=== PATIENT | female | born 1960 | race Caucasian/White ===

== ENCOUNTER 2019-01-17 07:54 | Inpatient (IN) | payer OTHER, MEDICARE ==
[2019-01-16 14:11] VITALS: BMI 26.6
[2019-01-17] MEDS ORDERED: MIDAZOLAM HCL 2 MG/2 ML SINGLE DOSE VIAL ONE (10:03)
[2019-01-17] MEDS ORDERED: PROPOFOL 20 ML ONE ×8 (10:04→12:45)
[2019-01-17] MEDS ORDERED: ROCURONIUM BROMIDE 50 MG/5 ML VIAL ONE ×2 (10:05→11:18)
[2019-01-17] MEDS ORDERED: ceFAZolin SODIUM 1 GM VIAL IVPB ONE (10:20)
[2019-01-17] MEDS ORDERED: VANCOMYCIN 1,000 MG VIAL (RESTRICTED TO ID ONLY) IVPB ONE (10:30)
[2019-01-17] MEDS ORDERED: SODIUM CHLORIDE 0.9% P/F 10 ML VIAL IJ ONE (10:48)
[2019-01-17] MEDS ORDERED: VANCOMYCIN 1,000 MG VIAL (RESTRICTED TO ID ONLY) ONE (10:48)
[2019-01-17] MEDS ORDERED: TRANEXAMIC ACID 1000 MG/10 ML VIAL ONE (10:48)
[2019-01-17] MEDS ORDERED: DEXAMETHASONE SOD PHOSPHATE 4 MG/1 ML VIAL ONE (10:51)
[2019-01-17] MEDS ORDERED: ONDANSETRON 4 MG/2 ML VIAL ONE (10:51)
[2019-01-17] MEDS ORDERED: PROMETHAZINE HCL 25 MG/1 ML VIAL IVPB PRN ×2 (12:30)
[2019-01-17] MEDS ORDERED: DEXAMETHASONE SOD PHOSPHATE 4 MG/1 ML VIAL IVPUSH PRN (12:30)
[2019-01-17] MEDS ORDERED: ONDANSETRON 4 MG/2 ML VIAL IVPUSH PRN ×2 (12:30→13:46)
--- NOTE | 2019-01-17 13:42 | PN ---
Progress Note (short form) - Note Progress Note: 58F s/p removal of hardware, inspection of fusion mass, and I&D thoracolumbar spine POD #0. -Pain control: per anaesthesia team; recommend CORRECTIONS SPECIALIST; NSAID's OK. -DVT PPx: - Mechanical only: MIGUEL ANGEL's, SCD's. -Incentive spirometry q15min. -PT/OT/Rehab, OOB. -WBAT B/L LE. -q4h B/L LE NV checks. -Post-op antibiotics x 2 doses. -NPO until flatus. -f/u AM labs. -f/u drain output. -d/c Morse catheter when patient ambulating comfortably. -Care per ICU & medical hospitalist team. -Will follow. Shayan Marina MD (Orthopaedic Surgery).
[2019-01-17] MEDS ORDERED: PATIENT'S OWN MEDICATION (NON-FORMULARY) (Oxycodone Hcl [Oxycodone Hcl] 30 MG) PO SCH (13:45)
[2019-01-17] MEDS ORDERED: HYDROMORPHONE HCL 8 MG PO SCH (13:45)
[2019-01-17] MEDS ORDERED: PATIENT'S OWN MEDICATION (NON-FORMULARY) (Lorazepam [Lorazepam] 2 MG) PO SCH (13:45)
--- NOTE | 2019-01-17 13:45 | OP ---
Operative Note - Note: Operative Date: 01/17/19 Pre-Operative Diagnosis: Symptomatic thoracolumbar spinal hardware. Progressive lower extremity neurological decline Operation: Thoracolumbar spine: 1. Removal of hardware. 2. Inspection of fusion mass. 3. I&D Post-Operative Diagnosis: Same as Pre-op Surgeon: Shayan Marina Software Administrator: Humble Marina Anesthesiologist/ARMATURE WINDER REPAIR HELPER: Gee Olivares Anesthesia: General Specimens Removed: Hardware Estimated Blood Loss (mls): 100 Drains & Tubes with Location: 1 x deep HemoVac Fluid Volume Replaced (mls): 1,800 (Crystalloid) Operative Report Dictated: Yes
[2019-01-17] MEDS ORDERED: LACTATED RINGERS SOLUTION 1,000 ML IV SCH (14:00)
--- NOTE | 2019-01-17 14:02 | CONSULT ---
Consultation: REQUESTING PROVIDER: CONSULT REQUEST: We have been asked to medically evaluate this patient for admission to ICU. HISTORY OF PRESENT ILLNESS: 58 y/o F with PMHx of MS and multiple back surgeries will be monitored in ICU s/ p removal of hardware, inspection of fusion mass, and I&D thoracolumbar spine POD #0. As per surgery, patient has had progressive weakness since August of this past week. During my interview, patient complains of pain over surgical site. Denies fevers, chills, chest pain, SOB, Nausea, vomiting, diarrhea, constipation REVIEW OF SYSTEMS: As per HPI PHYSICAL EXAMINATION Vital Signs - 24 hr 01/17/19 01/17/19 08:49 09:03 Temperature 97.8 F Pulse Rate 90 Respiratory 20 Rate Blood Pressure 123/86 O2 Sat by Pulse 98 Oximetry (%) GENERAL: A&Ox3, Having discomfort from pain oversurgical site head: NCAT EYES: PERRL, EOMI ENT: Moist mucous membranes NECK: Supple, R IJ placed with dressing C/D/I LUNGS: Diminished breath sounds at the bases, No wheezes, No crackles HEART: Regular rate and rhythm, normal S1 and S2 without murmur ABDOMEN: Soft, nontender, not distended, hypoactive bowel sounds, no guarding BACK: Surgical dressing C/D/I without surrounding tenderness, drain present EXTREMITIES: No peripheral edema NEUROLOGICAL: Cranial nerves II-XII intact. Normal speech. SKIN: Warm, dry Laboratory Results - last 24 hr 01/17/19 01/17/19 08:09 08:55 Blood Type A POSITIVE A POSITIVE Antibody Screen Negative Active Medications Amitriptyline HCl (Elavil -) 50 mg PO HS ARNIE Dexamethasone Sodium Phosphate (Decadron Injection -) 4 mg IVPUSH ONCE PRN PRN Reason: NAUSEA AND/OR VOMITING Diphenhydramine HCl (Benadryl Injection -) 12.5 mg IVPUSH ONCE PRN PRN Reason: FOR ITCHING Fentanyl (Sublimaze Injection -) 50 mcg IVPUSH [id number] PRN PRN Reason: PAIN-PACU ORDER X 4 DOSES ONLY Hydromorphone HCl (Dilaudid Applications Programmer -) 0 mg DESIGN ENGINEERING MANAGER DESIGN ENGINEERING MANAGER ARNIE; Protocol Stop: 01/24/19 12:30 Lactated Ringer's (Lactated Ringers Solution) 1,000 mls @ 125 mls/hr IV ASDIR ARNIE Non-Formulary Medication (Hydromorphone Hcl [Dilaudid]) 8 mg PO Q4H ARNIE Non-Formulary Medication (Lorazepam [Lorazepam]) 2 mg PO Q4H ARNIE Non-Formulary Medication (Oxycodone Hcl [Oxycodone Hcl]) 30 mg PO Q6H ARNIE Ondansetron HCl (Zofran Injection) 4 mg IVPUSH Q4H PRN PRN Reason: NAUSEA AND/OR VOMITING Promethazine HCl (Phenergan Injection -) 12.5 mg IVPB Q6H PRN PRN Reason: NAUSEA AND/OR VOMITING Promethazine HCl (Phenergan Injection -) 12.5 mg IVPUSH Q6H PRN PRN Reason: NAUSEA-FOR RESCUE AFTER 15 MIN ASSESSMENT/PLAN: 58 y/o F with PMHx of MS will be monitored in ICU s/p removal of hardware, inspection of fusion mass, and I&D thoracolumbar spine POD #0. #Neuro S/P Thoracolumbar spine Removal of hardware, Inspection of fusion mass, I&D Hx of MS (Not on medications) -EBL 100 mls; 1800 fluid volume replaced -Vitals Q4H -Pain control per anaesthesia team; recommend DESIGN ENGINEERING MANAGER; NSAID's OK -PT/OT/Rehab, OOB -WBAT B/L LE -Neuro checks Q4H -Turn and position [id number] -NPO until passes flatus -Morse catheter to be d/c'ed once ambulating -Post-op Cefazolin 2gm x 2 doses -Continue LR @ 125 mls/hr -Continue home dose Oxicodone, Dilaudid as per surgical rec's #Cardio -No active issues, continue to monitor #Pulm -Incentive spirometry -Supplemetal O2 to maintain SpO2 > 90% #GI -Continue Promethazine, Ondansetron PRN for vomiting #Renal -Continue LR @ 125 mls/hr -Monitor I&Os, urine output #ID -Afebrile, without Leukocytosis -Post-op Cefazolin 2gm x 2 doses -Continue to monitor for post-op fever #Heme -Continue to monitor for Acute blood loss anemia #FEN -Continue LR @ 125 mls/hr -Replete Lytes PRN -NPO #PPx -DVT: MIGUEL ANGEL's, SCD's -GI: Pantoprazole #LTD -R IJ placed in OR on 01/17 -HemoVac placed 01/17 -Morse Catheter placed 01/17 Dispo: We will continue to follow the patient. Thank you for this consultative opportunity. Visit type - Emergency Visit Emergency Visit: Yes ED Registration Date: 01/17/19 Care time: The patient presented to the Emergency Department on the above date and was hospitalized for further evaluation of their emergent condition. - New Patient This patient is new to me today: Yes Date on this admission: 01/17/19 - Critical Care Critical Care patient: Yes Total Critical Care Time (in minutes): 36 Critical Care Statement: The care of this patient involved high complexity decision making to prevent further life threatening deterioration of the patient 's condition and/or to evaluate & treat vital organ system(s) failure or risk of failure.
[2019-01-17] MEDS: KETOROLAC TROMETHAMINE 30 MG/1 ML VIAL IVPUSH PRN (14:05)
[2019-01-17] MEDS: LACTATED RINGERS SOLUTION 1,000 ML IV SCH (14:08)
--- NOTE | 2019-01-17 14:08 | PN ---
Physical Exam: SUBJECTIVE: Patient seen and examined in the ICU. having back pain, 10/10. awake and alert, verbalizing discomfort. tells me that she has a high tolerance for pain and has had back surgery in the past. OBJECTIVE: paper chart reviewed s/p lumbar spine surgery with Dr. nuñez POD #0 Thoracolumbar spine: 1. Removal of hardware. 2. Inspection of fusion mass. 3. I&D ---- as per paper chart, patient home medications include: elavil 50mg at hs dilaudid 8mg q4 lorazepam 2mg q4 oxycodone 30mg q6 she has a past medical history of blood transfusions with surgery appendectomy cesearan section tonsillectomy former smoker multiple sclerosis Vital Signs Period Temp Pulse Resp BP Sys/Gallagher Pulse Ox Last 24 Hr 97.8 F 90 20 123/86 98 GENERAL: The patient is awake, alert, and fully oriented, having back pain HEAD: Normal with no signs of trauma. EYES: PERRL, extraocular movements intact, sclera anicteric, conjunctiva clear. No ptosis. ENT: Ears normal, nares patent, oropharynx clear without exudates, moist mucous membranes. NECK: Trachea midline, full range of motion, supple. LUNGS: Breath sounds equal, clear to auscultation bilaterally, no wheezes, HEART: Regular rate and rhythm. ABDOMEN: Soft, nontender, nondistended, normoactive bowel sounds, NEUROLOGICAL: Normal speech, gait not observed. PSYCH: Normal mood, normal affect. SKIN: surgical dressing c/d/i Laboratory Results - last 24 hr 01/17/19 01/17/19 08:09 08:55 Blood Type A POSITIVE A POSITIVE Antibody Screen Negative Active Medications Generic Name Dose Route Start Last Admin Trade Name Freq PRN Reason Stop Dose Admin Acetaminophen 1,000 mg 01/17/19 14:00 Ofirmev Injection - IVPB 01/18/19 06:01 Q8H ARNIE Amitriptyline HCl 50 mg 01/17/19 22:00 Elavil - PO HS ARNIE Dexamethasone Sodium Phosphate 4 mg 01/17/19 12:30 Decadron Injection - IVPUSH ONCE PRN NAUSEA AND/OR VOMITING Diphenhydramine HCl 12.5 mg 01/17/19 12:30 Benadryl Injection - IVPUSH ONCE PRN FOR ITCHING Fentanyl 50 mcg 01/17/19 12:30 Sublimaze Injection - IVPUSH [id number] PRN PAIN-PACU ORDER X 4 DOSES ONLY Hydromorphone HCl 10 mg 01/17/19 12:30 Dilaudid Director Patient Accounting - WARP COILER 01/24/19 12:30 WARP COILER ARNIE Protocol Lactated Ringer's 1,000 mls @ 125 mls/hr 01/17/19 12:30 Lactated Ringers Solution IV ASDIR ARNIE Lactated Ringer's 1,000 mls @ 125 mls/hr 01/17/19 14:00 Lactated Ringers Solution IV ASDIR ARNIE Ketorolac Tromethamine 30 mg 01/17/19 13:46 Toradol Injection - IVPUSH Q8H PRN PAIN LEVEL 6-10 Non-Formulary Medication 8 mg 01/17/19 13:45 Hydromorphone Hcl [Dilaudid] PO Q4H [facility] Non-Formulary Medication 2 mg 01/17/19 13:45 Lorazepam [Lorazepam] PO Q4H [facility] Non-Formulary Medication 30 mg 01/17/19 13:45 Oxycodone Hcl [Oxycodone Hcl] PO Q6H [facility] Ondansetron HCl 4 mg 01/17/19 12:30 Zofran Injection IVPUSH Q4H PRN NAUSEA AND/OR VOMITING Ondansetron HCl 4 mg 01/17/19 13:46 Zofran Injection IVPUSH Q6H PRN NAUSEA AND/OR VOMITING Promethazine HCl 12.5 mg 01/17/19 12:30 Phenergan Injection - IVPB Q6H PRN NAUSEA AND/OR VOMITING Promethazine HCl 12.5 mg 01/17/19 12:30 Phenergan Injection - IVPUSH Q6H PRN NAUSEA-FOR RESCUE AFTER 15 MIN ASSESSMENT/PLAN: Patient is a 58 year old female s/p Thoracolumbar spine: 1. Removal of hardware. 2. Inspection of fusion mass. 3. I&D with Dr Nuñez. POD#0 Her past medical history includes: blood transfusions with surgery appendectomy cesearan section tonsillectomy former smoker multiple sclerosis Back surgery-POD#0 Pain management with PO and WARP COILER Monitor in ICU Keep NPO until +bS and flatus Bowel regimen incentive spirometer hydration fen npo until cleared by surgery monitor electrolytes/labs/vitals/airway prophy SCDs full code Visit type - Emergency Visit Emergency Visit: Yes ED Registration Date: 01/17/19 Care time: The patient presented to the Emergency Department on the above date and was hospitalized for further evaluation of their emergent condition. - New Patient This patient is new to me today: Yes Date on this admission: 01/17/19 - Critical Care Critical Care patient: Yes Total Critical Care Time (in minutes): 60 Critical Care Statement: The care of this patient involved high complexity decision making to prevent further life threatening deterioration of the patient 's condition and/or to evaluate & treat vital organ system(s) failure or risk of failure.
--- NOTE | 2019-01-17 14:16 | PN ---
Teaching Attending Note Name of Resident: Deneen Car ATTENDING PHYSICIAN STATEMENT I saw and evaluated the patient. I reviewed the resident's note and discussed the case with the resident. I agree with the resident's findings and plan as documented. SUBJECTIVE: Patient seen and examined in the ICU. Just out of the OR. POD #0: 1. Removal of hardware. 2. Inspection of fusion mass. 3. I&D. Due to progressive lower extremity neurological decline Seen in the ICU. Awake and alert. Discomfort/pain at the surgical site but being medicated by RN at this time. No CP or SOB. Intake & Output 01/14/19 01/15/19 01/16/19 01/17/19 23:59 23:59 23:59 23:59 Intake Total 1800 Output Total 600 Balance 1200 Weight 170 lb 170 lb Last Vital Signs Temp Pulse Resp BP Pulse Ox 98.3 F 68 22 H 150/99 98 01/17/19 14:07 01/17/19 14:07 01/17/19 14:07 01/17/19 14:07 01/17/19 09:03 Active Medications Acetaminophen (Ofirmev Injection -) 1,000 mg IVPB Q8H ARNIE Stop: 01/18/19 06:01 Amitriptyline HCl (Elavil -) 50 mg PO HS ARNIE Dexamethasone Sodium Phosphate (Decadron Injection -) 4 mg IVPUSH ONCE PRN PRN Reason: NAUSEA AND/OR VOMITING Diphenhydramine HCl (Benadryl Injection -) 12.5 mg IVPUSH ONCE PRN PRN Reason: FOR ITCHING Fentanyl (Sublimaze Injection -) 50 mcg IVPUSH [id number] PRN PRN Reason: PAIN-PACU ORDER X 4 DOSES ONLY Hydromorphone HCl (Dilaudid Employee Relations Administrator -) 10 mg TAX COMPLIANCE MANAGER TAX COMPLIANCE MANAGER ARNIE; Protocol Stop: 01/24/19 12:30 Lactated Ringer's (Lactated Ringers Solution) 1,000 mls @ 125 mls/hr IV ASDIR ARNIE Ketorolac Tromethamine (Toradol Injection -) 30 mg IVPUSH Q8H PRN PRN Reason: PAIN LEVEL 6-10 Non-Formulary Medication (Hydromorphone Hcl [Dilaudid]) 8 mg PO Q4H ARNIE Non-Formulary Medication (Lorazepam [Lorazepam]) 2 mg PO Q4H ARNIE Non-Formulary Medication (Oxycodone Hcl [Oxycodone Hcl]) 30 mg PO Q6H [facility] Ondansetron HCl (Zofran Injection) 4 mg IVPUSH Q4H PRN PRN Reason: NAUSEA AND/OR VOMITING Promethazine HCl (Phenergan Injection -) 12.5 mg IVPUSH Q6H PRN PRN Reason: NAUSEA-FOR RESCUE AFTER 15 MIN GENERAL: Awake, alert, uncomfortable due to pain HEAD: Normal with no signs of trauma. EYES: sclera anicteric, conjunctiva clear. EARS, NOSE, THROAT: Ears normal, nares patent, oropharynx clear without exudates. Moist mucous membranes. NECK: Normal range of motion, supple without lymphadenopathy, JVD, or masses. LUNGS: Clear to auscultation bilaterally. No wheezes, and no crackles. No accessory muscle use. HEART: Regular rate and rhythm, normal S1 and S2 without murmur, rub or gallop. ABDOMEN: Soft, nontender, not distended, normoactive bowel sounds, no guarding, no rebound, no masses. No hepatomegaly or splenomegaly. MUSCULOSKELETAL: Normal range of motion at all joints. No bony deformities or tenderness. No CVA tenderness. UPPER EXTREMITIES: 2+ pulses, warm, well-perfused. No cyanosis. No clubbing. No peripheral edema. LOWER EXTREMITIES: 2+ pulses, warm, well-perfused. No calf tenderness. No peripheral edema. NEUROLOGICAL: Non-focal SKIN: Warm, dry, normal turgor, no rashes or lesions noted. Laboratory Results - last 24 hr 01/17/19 01/17/19 08:09 08:55 Blood Type A POSITIVE A POSITIVE Antibody Screen Negative ASSESSMENT/PLAN: POD #0: 1. Removal of hardware. 2. Inspection of fusion mass. 3. I&D. Due to progressive lower extremity neurological decline Pain control per anaesthesia: TAX COMPLIANCE MANAGER PT/OT/Rehab, OOB WBAT B/L LE Neuro checks Q4H NPO until passes flatus Morse catheter to be d/c'ed once ambulating Post-op Cefazolin 2gm x 2 doses Continue LR @ 125 mls/hr Incentive spirometry Supplemetal O2 to maintain SpO2 > 90% GI prophylaxis Dr Garza
[2019-01-17] MEDS: HYDROmorphone *PCA* 10MG/50ML DISP.SYRIN PCA SCH (14:20)
[2019-01-17] MEDS: ACETAMINOPHEN 1000 MG/100 ML VIAL (NON FORMULARY) IVPB SCH ×2 (14:35→21:23)
[2019-01-17] MEDS ORDERED: LIDOCAINE 5% TOPICAL PATCH TP ONE (15:00)
[2019-01-17] MEDS: LORazepam 1 MG TABLET PO PRN (17:01)
[2019-01-17] MEDS: oxyCODONE HCL 5 MG TABLET PO SCH (17:41)
[2019-01-17] MEDS ORDERED: PT OWN MED DRAWER 7, Y5N ONE (21:21)
[2019-01-17] MEDS: AMITRIPTYLINE HCL 25 MG TABLET (FP) PO SCH (21:24)
[2019-01-17] MEDS: SENNOSIDES 8.6MG TABLET (FP) PO SCH (21:24)
[2019-01-17] MEDS: DOCUSATE SODIUM 100 MG CAPSULE (FP) PO SCH (21:25)
[2019-01-17] MEDS: POLYETHYLENE GLYCOL 3350 119 GM BTL PO SCH (21:27)
[2019-01-17] MEDS ORDERED: LIDOCAINE PATCH REMOVAL MC ONE (22:00)
--- NOTE | 2019-01-17 23:38 | OP ---
DATE OF OPERATION: 01/17/2019 SURGEON: Shayan Marina MD THREAD REELER: Humble Marina MD PREOPERATIVE DIAGNOSIS: Planned removal of hardware thoracolumbar spine due to progressive neurological weakness and inability to achieve imaging on the patient with either MRI or CAT scan myelogram due to clinical pain and deformity. POSTOPERATIVE DIAGNOSIS: Planned removal of hardware thoracolumbar spine due to progressive neurological weakness and inability to achieve imaging on the patient with either MRI or CAT scan myelogram due to clinical pain and deformity. OPERATION PERFORMED: 1. Removal of hardware. 2. Inspection of fusion mass. 3. Laminectomy from T10 to L3. ANESTHESIA: General. OPERATION IN DETAIL: Patient correctly identified and placed in the prone position on a Luís table. A routine prep with betadine scrub solution, wiped off with alcohol, and DuraPrep applied. A window drape was applied. The original wound was opened in line of the incision as the tissues were markedly indurated and hard from all of the previous surgeries this woman has endured. Self-retainers enabled us to keep the tissues apart and with Bovie on cutting, we dissected out soft tissue off all of the screw heads of the metal. Once this had been performed, the rods were delivered and each screw removed. Each screw was solidly seated without any complication. We inspected the fusion mass and it appeared completely solid and stable. At that point, I simply used the Le[place]ell rongeur to debride the tissue off of the posterior elements to expose right down to the softness of the dura from T10 down to L4. Prior to this procedure, virtually no motor evoked potential signals and very low amplitude SSEP signals were found in her lower extremities, but the upper extremities were stronger and more vigorous. Once this laminectomy procedure was performed, the neural monitoring dramatically improved in the legs. This indicates a degree of stenosis at this level. On the basis of that, the wounds were thoroughly lavaged. The wounds were closed as follows and with great difficulty: Muscle and fascia 1 Vicryl, subcutaneous tissue 1 and 2-0 Vicryl, skin reuben. Drainage: One-eighth inch Hemovac x1. Operation went surprisingly well. No complications. My concerns remain wound management here because of the poor quality of the muscle envelope and the hard induration, as noted. MD YINA Richardson/[id number]
[2019-01-18] MEDS: oxyCODONE HCL 5 MG TABLET PO SCH ×4 (00:11→18:04)
[2019-01-18] MEDS: KETOROLAC TROMETHAMINE 30 MG/1 ML VIAL IVPUSH PRN ×3 (00:11→16:15)
[2019-01-18] MEDS: HYDROmorphone *PCA* 10MG/50ML DISP.SYRIN PCA SCH ×2 (05:32→16:30)
[2019-01-18 05:52] LABS: BASO % 0.1 % (0-2.0); HEMATOCRIT 33.8 % (32.4-45.2); HEMOGLOBIN 11.5 GM/dL (10.7-15.3); MCH 31.6 pg (25.7-33.7); MCHC 34.1 g/dl (32.0-36.0); MEAN CELL VOLUME 92.7 fl (80-96); MEAN PLT VOLUME 9.2 fl (7.5-11.1); MONO % 7.6 % (3.8-10.2); NEUT % 77.3 % (42.8-82.8); PLATELET COUNT 181 K/MM3 (134-434); RBC 3.65 M/mm3 (3.60-5.2); RDW 13.7 % (11.6-15.6)
[2019-01-18 06:24] LABS: ALBUMIN 2.7 g/dl (3.4-5.0); ALK PHOS 75 U/L (45-117); ANION GAP 2 MMOL/L (8-16); BILIRUBIN,TOTAL 0.6 mg/dL (0.2-1); BLOOD UREA NITROGEN 9 mg/dL (7-18); CALCIUM 8.3 mg/dL (8.5-10.1); CHLORIDE 103 mmol/L (98-107); CO2 33 mmol/L (21-32); CREATININE 0.3 mg/dL (0.55-1.3); GLUCOSE,RANDOM 114 mg/dL (74-106); MAGNESIUM 1.9 mg/dL (1.8-2.4); PHOSPHOROUS 3.5 mg/dL (2.5-4.9); POTASSIUM 4.4 mmol/L (3.5-5.1); SGOT/AST 10 U/L (15-37); SGPT/ALT 14 U/L (13-61); SODIUM 137 mmol/L (136-145); TOT PROT 5.4 g/dl (6.4-8.2)
[2019-01-18] MEDS: DOCUSATE SODIUM 100 MG CAPSULE (FP) PO SCH ×3 (06:28→21:28)
[2019-01-18] MEDS: ACETAMINOPHEN 1000 MG/100 ML VIAL (NON FORMULARY) IVPB SCH (06:28)
--- NOTE | 2019-01-18 08:28 | PN ---
Physical Exam: SUBJECTIVE: Patient seen and examined this AM in ICU. Passed flatus overnight. Pain much better controlled. No new complaints. Denies fevers, chills, chest pain, SOB, nausea, vomiting, diarrhea, constipation. OBJECTIVE: Vital Signs Period Temp Pulse Resp BP Sys/Gallagher Pulse Ox Last 24 Hr 97.8 F-98.6 F 68-90 10-24 89-155/55-115 98-100 GENERAL: A&Ox3, NAD HEAD: NCAT EYES: PERRL, EOMI ENT: Moist mucous membranes NECK: Supple, R IJ placed with dressing C/D/I LUNGS: Diminished breath sounds at the bases, No wheezes, No crackles HEART: Regular rate and rhythm, normal S1 and S2 without murmur ABDOMEN: Soft, nontender, not distended, + bowel sounds, no guarding BACK: Surgical dressing C/D/I without surrounding tenderness, drain present EXTREMITIES: No peripheral edema NEUROLOGICAL: Cranial nerves II-XII intact. Normal speech. SKIN: Warm, dry Laboratory Results - last 24 hr 01/17/19 01/17/19 01/18/19 08:09 08:55 05:30 WBC RBC Hgb Hct MCV MCH MCHC RDW Plt Count MPV Absolute Neuts (auto) Neutrophils % Lymphocytes % Monocytes % Eosinophils % Basophils % Nucleated RBC % Sodium 137 Potassium 4.4 Chloride 103 Carbon Dioxide 33 H Anion Gap 2 L BUN 9 Creatinine 0.3 L Creat Clearance w eGFR > 60 Random Glucose 114 H Calcium 8.3 L Phosphorus 3.5 Magnesium 1.9 Total Bilirubin 0.6 AST 10 L ALT 14 Alkaline Phosphatase 75 Total Protein 5.4 L Albumin 2.7 L Blood Type A POSITIVE A POSITIVE Antibody Screen Negative 01/18/19 05:30 WBC 8.0 RBC 3.65 Hgb 11.5 Hct 33.8 MCV 92.7 MCH 31.6 MCHC 34.1 RDW 13.7 Plt Count 181 MPV 9.2 Absolute Neuts (auto) 6.2 Neutrophils % 77.3 Lymphocytes % 15.0 Monocytes % 7.6 Eosinophils % 0.0 Basophils % 0.1 Nucleated RBC % 0 Sodium Potassium Chloride Carbon Dioxide Anion Gap BUN Creatinine Creat Clearance w eGFR Random Glucose Calcium Phosphorus Magnesium Total Bilirubin AST ALT Alkaline Phosphatase Total Protein Albumin Blood Type Antibody Screen Active Medications Amitriptyline HCl (Elavil -) 50 mg PO HS ARNIE Last Admin: 01/17/19 21:24 Dose: 50 mg Dexamethasone Sodium Phosphate (Decadron Injection -) 4 mg IVPUSH ONCE PRN PRN Reason: NAUSEA AND/OR VOMITING Last Admin: 01/17/19 14:34 Dose: 4 mg Diphenhydramine HCl (Benadryl Injection -) 12.5 mg IVPUSH ONCE PRN PRN Reason: FOR ITCHING Docusate Sodium (Colace -) 100 mg PO TID [facility] Last Admin: 01/18/19 06:28 Dose: 100 mg Fentanyl (Sublimaze Injection -) 50 mcg IVPUSH [id number] PRN PRN Reason: PAIN-PACU ORDER X 4 DOSES ONLY Stop: 01/18/19 12:29 Last Admin: 01/17/19 14:50 Dose: 50 mcg Hydromorphone HCl (Dilaudid Consumer Insight Manager -) 10 mg MELTER LOADER MELTER LOADER [facility]; Protocol Stop: 01/24/19 12:30 Last Admin: 01/18/19 05:32 Dose: 10 mg Hydromorphone HCl (Dilaudid -) 8 mg PO Q4HPO [facility] Last Admin: 01/18/19 06:28 Dose: 8 mg Lactated Ringer's (Lactated Ringers Solution) 1,000 mls @ 125 mls/hr IV ASDIR [facility] Last Admin: 01/17/19 14:08 Dose: 125 mls/hr Ketorolac Tromethamine (Toradol Injection -) 30 mg IVPUSH Q8H PRN PRN Reason: PAIN LEVEL 6-10 Last Admin: 01/18/19 00:11 Dose: 30 mg Lorazepam (Ativan -) 2 mg PO Q4H PRN PRN Reason: ANXIETY/AGITATION Last Admin: 01/17/19 17:01 Dose: 2 mg Ondansetron HCl (Zofran Injection) 4 mg IVPUSH Q4H PRN PRN Reason: NAUSEA AND/OR VOMITING Oxycodone HCl (Roxicodone -) 30 mg PO Q6HPO [facility] Last Admin: 01/18/19 06:28 Dose: 30 mg Pantoprazole Sodium (Protonix Iv) 40 mg IVPUSH DAILY [facility] Polyethylene Glycol (Miralax (For Daily Use) -) 17 gm PO BID [facility] Last Admin: 01/17/19 21:27 Dose: 17 gm Promethazine HCl (Phenergan Injection -) 12.5 mg IVPB Q6H PRN PRN Reason: NAUSEA-FOR RESCUE AFTER 15 MIN Stop: 01/18/19 12:29 Senna (Senna -) 2 tab PO HS ARNIE Last Admin: 01/17/19 21:24 Dose: 2 tab ASSESSMENT/PLAN: 58 y/o F with PMHx of MS will be monitored in ICU s/p removal of hardware, inspection of fusion mass, and I&D thoracolumbar spine POD #0. #Neuro S/P Thoracolumbar spine Removal of hardware, Inspection of fusion mass, I&D Hx of MS (Not on medications), Multiple back surgeries -EBL 100 mls; 1800 fluid volume replaced -Vitals Q4H -Pain control per anaesthesia team; recommend MELTER LOADER; NSAID's OK -Pain Management consulted (Dr. Morris) -PT/OT/Rehab, OOB -WBAT B/L LE -Neuro checks Q4H -Turn and position [id number] -Passed flatus; Will advance diet this AM -Morse catheter to be d/c'ed once ambulating -Post-op Cefazolin 2gm x 2 doses -Continue LR @ 125 mls/hr -Continue home dose Oxicodone, Dilaudid as per surgical rec's -Tylenol IV PRN Q6H #Cardio -No active issues, continue to monitor #Pulm -Incentive spirometry -Supplemetal O2 to maintain SpO2 > 90% #GI -Continue Promethazine, Ondansetron PRN for vomiting #Renal -Continue LR @ 125 mls/hr -Monitor I&Os, urine output #ID -Afebrile, without Leukocytosis -Post-op Cefazolin 2gm x 2 doses -Continue to monitor for post-op fever #Heme -Continue to monitor for Acute blood loss anemia -H&H Stable #FEN -Continue LR @ 125 mls/hr -Replete Lytes PRN -Soft diet #PPx -DVT: MIGUEL ANGEL's, SCD's -GI: Pantoprazole #LTD -R IJ placed in OR on 01/17 -HemoVac placed 01/17 -Morse Catheter placed 01/17 Dispo: We will continue to follow the patient. Thank you for this consultative opportunity. Visit type - Emergency Visit Emergency Visit: Yes ED Registration Date: 01/17/19 Care time: The patient presented to the Emergency Department on the above date and was hospitalized for further evaluation of their emergent condition. - New Patient This patient is new to me today: No - Critical Care Critical Care patient: Yes Total Critical Care Time (in minutes): 36 Critical Care Statement: The care of this patient involved high complexity decision making to prevent further life threatening deterioration of the patient 's condition and/or to evaluate & treat vital organ system(s) failure or risk of failure.
--- NOTE | 2019-01-18 09:39 | PN ---
Physical Exam: SUBJECTIVE: Patient seen and examined at the bedside. pain better controlled. OBJECTIVE: + flatus Vital Signs Period Temp Pulse Resp BP Sys/Gallagher Pulse Ox Last 24 Hr 97.8 F-98.6 F 68-90 10-24 89-155/55-115 100-100 GENERAL: The patient is awake, alert, and fully oriented, having back pain HEAD: Normal with no signs of trauma. EYES: PERRL, extraocular movements intact, sclera anicteric, conjunctiva clear. No ptosis. ENT: Ears normal, nares patent, oropharynx clear without exudates, moist mucous membranes. NECK: Trachea midline, full range of motion, supple. LUNGS: Breath sounds equal, clear to auscultation bilaterally, no wheezes, HEART: Regular rate and rhythm. ABDOMEN: Soft, nontender, nondistended, normoactive bowel sounds, NEUROLOGICAL: Normal speech, gait not observed. PSYCH: Normal mood, normal affect. SKIN: surgical dressing c/d/i Laboratory Results - last 24 hr 01/17/19 01/17/19 01/18/19 08:09 08:55 05:30 WBC RBC Hgb Hct MCV MCH MCHC RDW Plt Count MPV Absolute Neuts (auto) Neutrophils % Lymphocytes % Monocytes % Eosinophils % Basophils % Nucleated RBC % Sodium 137 Potassium 4.4 Chloride 103 Carbon Dioxide 33 H Anion Gap 2 L BUN 9 Creatinine 0.3 L Creat Clearance w eGFR > 60 Random Glucose 114 H Calcium 8.3 L Phosphorus 3.5 Magnesium 1.9 Total Bilirubin 0.6 AST 10 L ALT 14 Alkaline Phosphatase 75 Total Protein 5.4 L Albumin 2.7 L Blood Type A POSITIVE A POSITIVE Antibody Screen Negative 01/18/19 05:30 WBC 8.0 RBC 3.65 Hgb 11.5 Hct 33.8 MCV 92.7 MCH 31.6 MCHC 34.1 RDW 13.7 Plt Count 181 MPV 9.2 Absolute Neuts (auto) 6.2 Neutrophils % 77.3 Lymphocytes % 15.0 Monocytes % 7.6 Eosinophils % 0.0 Basophils % 0.1 Nucleated RBC % 0 Sodium Potassium Chloride Carbon Dioxide Anion Gap BUN Creatinine Creat Clearance w eGFR Random Glucose Calcium Phosphorus Magnesium Total Bilirubin AST ALT Alkaline Phosphatase Total Protein Albumin Blood Type Antibody Screen Active Medications Generic Name Dose Route Start Last Admin Trade Name Freq PRN Reason Stop Dose Admin Amitriptyline HCl 50 mg 01/17/19 22:00 01/17/19 21:24 Elavil - PO 50 mg HS ARNIE Administration Dexamethasone Sodium Phosphate 4 mg 01/17/19 12:30 01/17/19 14:34 Decadron Injection - IVPUSH 4 mg ONCE PRN Administration NAUSEA AND/OR VOMITING Diphenhydramine HCl 12.5 mg 01/17/19 12:30 Benadryl Injection - IVPUSH ONCE PRN FOR ITCHING Docusate Sodium 100 mg 01/17/19 22:00 01/18/19 06:28 Colace - PO 100 mg TID ARNIE Administration Fentanyl 50 mcg 01/17/19 12:30 01/17/19 14:50 Sublimaze Injection - IVPUSH 01/18/19 12:29 50 mcg [id number] PRN Administration PAIN-PACU ORDER X 4 DOSES ONLY Hydromorphone HCl 10 mg 01/17/19 12:30 01/18/19 05:32 Dilaudid Dam Tender Assistant - HIGH FREQUENCY MILL OPERATOR 01/24/19 12:30 10 mg HIGH FREQUENCY MILL OPERATOR ARNIE Administration Protocol Hydromorphone HCl 8 mg 01/17/19 18:00 01/18/19 06:28 Dilaudid - PO 8 mg Q4HPO ARNIE Administration Lactated Ringer's 1,000 mls @ 125 mls/hr 01/17/19 12:30 01/17/19 14:08 Lactated Ringers Solution IV 125 mls/hr ASDIR ARNIE Administration Ketorolac Tromethamine 30 mg 01/17/19 13:46 01/18/19 08:46 Toradol Injection - IVPUSH 30 mg Q8H PRN Administration PAIN LEVEL 6-10 Lidocaine 1 patch 01/18/19 10:00 Lidoderm Patch - TP DAILY ARNIE Lorazepam 2 mg 01/17/19 16:19 01/17/19 17:01 Ativan - PO 2 mg Q4H PRN Administration ANXIETY/AGITATION Miscellaneous 1 each 01/18/19 22:00 Lidoderm Patch Removal MC DAILY@2200 ARNIE Ondansetron HCl 4 mg 01/17/19 12:30 Zofran Injection IVPUSH Q4H PRN NAUSEA AND/OR VOMITING Oxycodone HCl 30 mg 01/17/19 16:18 01/18/19 06:28 Roxicodone - PO 30 mg Q6HPO ARNIE Administration Pantoprazole Sodium 40 mg 01/18/19 10:00 Protonix Iv IVPUSH DAILY ARNIE Polyethylene Glycol 17 gm 01/17/19 22:00 01/17/19 21:27 Miralax (For Daily Use) - PO 17 gm BID ARNIE Administration Promethazine HCl 12.5 mg 01/17/19 12:30 Phenergan Injection - IVPB 01/18/19 12:29 Q6H PRN NAUSEA-FOR RESCUE AFTER 15 MIN Senna 2 tab 01/17/19 22:00 01/17/19 21:24 Senna - PO 2 tab HS ARNIE Administration ASSESSMENT/PLAN: Patient is a 58 year old female s/p Thoracolumbar spine: 1. Removal of hardware. 2. Inspection of fusion mass. 3. I&D with Dr Marina. POD#1 Her past medical history includes: blood transfusions with surgery appendectomy cesearan section tonsillectomy former smoker multiple sclerosis Back surgery-POD#0 Pain management with PO and HIGH FREQUENCY MILL OPERATOR and lidocaine patches Monitor in ICU start clears as pt is passing flatus Bowel regimen: senna, colace, miralax incentive spirometer encouraged hydration, can tolerate oral hydration fen clears monitor electrolytes/labs/vitals/airway prophy SCDs full code Visit type - Emergency Visit Emergency Visit: Yes ED Registration Date: 01/17/19 Care time: The patient presented to the Emergency Department on the above date and was hospitalized for further evaluation of their emergent condition. - New Patient This patient is new to me today: No - Critical Care Critical Care patient: Yes Total Critical Care Time (in minutes): 40 Critical Care Statement: The care of this patient involved high complexity decision making to prevent further life threatening deterioration of the patient 's condition and/or to evaluate & treat vital organ system(s) failure or risk of failure.
[2019-01-18] MEDS: PANTOPRAZOLE SODIUM 40 MG VIAL IVPUSH SCH (09:48)
[2019-01-18] MEDS: POLYETHYLENE GLYCOL 3350 119 GM BTL PO SCH ×3 (09:48→21:29)
[2019-01-18] MEDS: LIDOCAINE 5% TOPICAL PATCH TP SCH (11:09)
--- NOTE | 2019-01-18 11:15 | PN ---
Teaching Attending Note Name of Resident: Deneen Car ATTENDING PHYSICIAN STATEMENT I saw and evaluated the patient. I reviewed the resident's note and discussed the case with the resident. I agree with the resident's findings and plan as documented. SUBJECTIVE: Patient seen and examined in the ICU. Pain is better controlled than yesterday. No CP or SOB. No flatus. Intake & Output 01/15/19 01/16/19 01/17/19 01/18/19 23:59 23:59 23:59 23:59 Intake Total 3025 1275 Output Total 1640 790 Balance 1385 485 Weight 170 lb 170 lb Last Vital Signs Temp Pulse Resp BP Pulse Ox 98.5 F 92 H 20 112/37 L 100 01/18/19 04:00 01/18/19 10:00 01/18/19 10:00 01/18/19 10:00 01/18/19 09:00 Active Medications Acetaminophen (Ofirmev Injection -) 1,000 mg IVPB Q6H PRN PRN Reason: PAIN LEVEL 6-10 Amitriptyline HCl (Elavil -) 50 mg PO HS [facility] Last Admin: 01/17/19 21:24 Dose: 50 mg Dexamethasone Sodium Phosphate (Decadron Injection -) 4 mg IVPUSH ONCE PRN PRN Reason: NAUSEA AND/OR VOMITING Last Admin: 01/17/19 14:34 Dose: 4 mg Diphenhydramine HCl (Benadryl Injection -) 12.5 mg IVPUSH ONCE PRN PRN Reason: FOR ITCHING Docusate Sodium (Colace -) 100 mg PO TID [facility] Last Admin: 01/18/19 06:28 Dose: 100 mg Fentanyl (Sublimaze Injection -) 50 mcg IVPUSH [id number] PRN PRN Reason: PAIN-PACU ORDER X 4 DOSES ONLY Stop: 01/18/19 12:29 Last Admin: 01/17/19 14:50 Dose: 50 mcg Hydromorphone HCl (Dilaudid Director Of Search Engine Optimization -) 10 mg FACILITIES FLIGHT CHECK PILOT FACILITIES FLIGHT CHECK PILOT [facility]; Protocol Stop: 01/24/19 12:30 Last Admin: 01/18/19 05:32 Dose: 10 mg Hydromorphone HCl (Dilaudid -) 8 mg PO Q4HPO [facility] Last Admin: 01/18/19 09:48 Dose: 8 mg Lactated Ringer's (Lactated Ringers Solution) 1,000 mls @ 125 mls/hr IV ASDIR [facility] Last Admin: 01/17/19 14:08 Dose: 125 mls/hr Ketorolac Tromethamine (Toradol Injection -) 30 mg IVPUSH Q8H PRN PRN Reason: PAIN LEVEL 6-10 Last Admin: 01/18/19 08:46 Dose: 30 mg Lidocaine (Lidoderm Patch -) 1 patch TP DAILY [facility] Last Admin: 01/18/19 11:09 Dose: 1 patch Lorazepam (Ativan -) 2 mg PO Q4H PRN PRN Reason: ANXIETY/AGITATION Last Admin: 01/17/19 17:01 Dose: 2 mg Miscellaneous (Lidoderm Patch Removal) 1 each MC DAILY@2200 [facility] Ondansetron HCl (Zofran Injection) 4 mg IVPUSH Q4H PRN PRN Reason: NAUSEA AND/OR VOMITING Oxycodone HCl (Roxicodone -) 30 mg PO Q6HPO [facility] Last Admin: 01/18/19 06:28 Dose: 30 mg Pantoprazole Sodium (Protonix Iv) 40 mg IVPUSH DAILY [facility] Last Admin: 01/18/19 09:48 Dose: 40 mg Polyethylene Glycol (Miralax (For Daily Use) -) 17 gm PO BID [facility] Last Admin: 01/18/19 09:48 Dose: 17 gm Promethazine HCl (Phenergan Injection -) 12.5 mg IVPB Q6H PRN PRN Reason: NAUSEA-FOR RESCUE AFTER 15 MIN Stop: 01/18/19 12:29 Senna (Senna -) 2 tab PO HS [facility] Last Admin: 01/17/19 21:24 Dose: 2 tab GENERAL: Awake, alert, more comfortable HEAD: Normal with no signs of trauma. EYES: sclera anicteric, conjunctiva clear. EARS, NOSE, THROAT: Ears normal, nares patent, oropharynx clear without exudates. Moist mucous membranes. NECK: Normal range of motion, supple without lymphadenopathy, JVD, or masses. LUNGS: Clear to auscultation bilaterally. No wheezes, and no crackles. No accessory muscle use. HEART: Regular rate and rhythm, normal S1 and S2 without murmur, rub or gallop. ABDOMEN: Soft, nontender, not distended, normoactive bowel sounds, no guarding, no rebound, no masses. No hepatomegaly or splenomegaly. MUSCULOSKELETAL: Normal range of motion at all joints. No bony deformities or tenderness. No CVA tenderness. UPPER EXTREMITIES: 2+ pulses, warm, well-perfused. No cyanosis. No clubbing. No peripheral edema. LOWER EXTREMITIES: 2+ pulses, warm, well-perfused. No calf tenderness. No peripheral edema. NEUROLOGICAL: Non-focal SKIN: Warm, dry, normal turgor, no rashes or lesions noted. Laboratory Results - last 24 hr 01/17/19 01/18/19 01/18/19 08:55 05:30 05:30 WBC 8.0 RBC 3.65 Hgb 11.5 Hct 33.8 MCV 92.7 MCH 31.6 MCHC 34.1 RDW 13.7 Plt Count 181 MPV 9.2 Absolute Neuts (auto) 6.2 Neutrophils % 77.3 Lymphocytes % 15.0 Monocytes % 7.6 Eosinophils % 0.0 Basophils % 0.1 Nucleated RBC % 0 Sodium 137 Potassium 4.4 Chloride 103 Carbon Dioxide 33 H Anion Gap 2 L BUN 9 Creatinine 0.3 L Creat Clearance w eGFR > 60 Random Glucose 114 H Calcium 8.3 L Phosphorus 3.5 Magnesium 1.9 Total Bilirubin 0.6 AST 10 L ALT 14 Alkaline Phosphatase 75 Total Protein 5.4 L Albumin 2.7 L Blood Type A POSITIVE ASSESSMENT/PLAN: POD #1: 1. Removal of hardware. 2. Inspection of fusion mass. 3. I&D. Due to progressive lower extremity neurological decline Pain control per anaesthesia: FACILITIES FLIGHT CHECK PILOT PT/OT/Rehab, OOB WBAT B/L LE Neuro checks Q4H NPO until passes flatus Morse catheter to be d/c'ed once ambulating Post-op Cefazolin 2gm x 2 doses Continue LR @ 125 mls/hr Incentive spirometry Supplemetal O2 to maintain SpO2 > 90% GI prophylaxis Dr Garza
--- NOTE | 2019-01-18 12:12 | PN ---
Progress Note (short form) - Note Progress Note: POD #1 - s/p removal of spinal hardware. VSS. Pt. just out of bed to chair. Pain control better on the dilaudid CAKE ICER. No apparent anesthetic complications noted. Continue current care.
[2019-01-18] MEDS: ACETAMINOPHEN 1000 MG/100 ML VIAL (NON FORMULARY) IVPB PRN ×2 (13:10→19:36)
[2019-01-18] MEDS: LACTATED RINGERS SOLUTION 1,000 ML IV SCH (13:10)
[2019-01-18] MEDS ORDERED: HYDROmorphone *PCA* 10MG/50ML DISP.SYRIN PCA ONE (16:28)
[2019-01-18] MEDS ORDERED: PT OWN MED DRAWER 7, Y5N ONE (21:23)
[2019-01-18] MEDS: LIDOCAINE PATCH REMOVAL MC SCH (21:28)
[2019-01-18] MEDS: SENNOSIDES 8.6MG TABLET (FP) PO SCH (21:28)
[2019-01-18] MEDS: AMITRIPTYLINE HCL 25 MG TABLET (FP) PO SCH (21:28)
[2019-01-18] MEDS: LORazepam 1 MG TABLET PO PRN (21:49)
[2019-01-19] MEDS ORDERED: IBUPROFEN 800 MG/8 ML IJ IVPB ONE (00:04)
[2019-01-19] MEDS: oxyCODONE HCL 5 MG TABLET PO SCH ×5 (00:18→23:55)
[2019-01-19] MEDS: ACETAMINOPHEN 1000 MG/100 ML VIAL (NON FORMULARY) IVPB PRN ×2 (06:16→12:30)
[2019-01-19] MEDS: DOCUSATE SODIUM 100 MG CAPSULE (FP) PO SCH ×3 (06:16→22:04)
[2019-01-19 06:55] LABS: ALBUMIN 2.6 g/dl (3.4-5.0); ALK PHOS 59 U/L (45-117); ANION GAP 2 MMOL/L (8-16); BILIRUBIN,TOTAL 0.4 mg/dL (0.2-1); BLOOD UREA NITROGEN 11 mg/dL (7-18); CALCIUM 7.9 mg/dL (8.5-10.1); CHLORIDE 105 mmol/L (98-107); CO2 33 mmol/L (21-32); CREATININE 0.4 mg/dL (0.55-1.3); GLUCOSE,RANDOM 80 mg/dL (74-106); MAGNESIUM 1.5 mg/dL (1.8-2.4); PHOSPHOROUS 2.5 mg/dL (2.5-4.9); SGOT/AST 9 U/L (15-37); SGPT/ALT 12 U/L (13-61); SODIUM 140 mmol/L (136-145); TOT PROT 4.9 g/dl (6.4-8.2)
[2019-01-19 07:01] LABS: BASO % 0.3 % (0-2.0); EOS % 2.1 % (0-4.5); HEMATOCRIT 29.3 % (32.4-45.2); LYMPH % 34.2 % (8-40); MCHC 34.1 g/dl (32.0-36.0); MEAN PLT VOLUME 9.8 fl (7.5-11.1); MONO % 6.7 % (3.8-10.2); NEUT % 56.7 % (42.8-82.8); PLATELET COUNT 156 K/MM3 (134-434); RBC 3.11 M/mm3 (3.60-5.2); RDW 13.8 % (11.6-15.6); WHITE BLOOD COUNT 5.6 K/mm3 (4.0-10.0)
--- NOTE | 2019-01-19 08:38 | PN ---
Physical Exam: SUBJECTIVE: Patient seen and examined OBJECTIVE: having right leg spams, will try valium 2mg x 1 Vital Signs Period Temp Pulse Resp BP Sys/Gallagher Pulse Ox Last 24 Hr 97.7 F-98.0 F 68-92 10-20 90-119/37-79 100-100 GENERAL: The patient is awake, alert, and fully oriented, having back pain HEAD: Normal with no signs of trauma. EYES: PERRL, extraocular movements intact, sclera anicteric, conjunctiva clear. No ptosis. ENT: Ears normal, nares patent, oropharynx clear without exudates, moist mucous membranes. NECK: Trachea midline, full range of motion, supple. LUNGS: Breath sounds equal, clear to auscultation bilaterally, no wheezes, HEART: Regular rate and rhythm. ABDOMEN: Soft, nontender, nondistended, normoactive bowel sounds, NEUROLOGICAL: Normal speech, gait not observed. PSYCH: Normal mood, normal affect. SKIN: surgical dressing intact Laboratory Results - last 24 hr 01/19/19 01/19/19 05:30 05:30 WBC 5.6 RBC 3.11 L Hgb 10.0 L Hct 29.3 L MCV 94.0 MCH 32.0 MCHC 34.1 RDW 13.8 Plt Count 156 MPV 9.8 Absolute Neuts (auto) 3.2 Neutrophils % 56.7 D Lymphocytes % 34.2 D Monocytes % 6.7 Eosinophils % 2.1 D Basophils % 0.3 Nucleated RBC % 0 Sodium 140 Potassium 4.0 Chloride 105 Carbon Dioxide 33 H Anion Gap 2 L BUN 11 Creatinine 0.4 L Creat Clearance w eGFR > 60 Random Glucose 80 Calcium 7.9 L Phosphorus 2.5 Magnesium 1.5 L Total Bilirubin 0.4 AST 9 L ALT 12 L Alkaline Phosphatase 59 Total Protein 4.9 L Albumin 2.6 L Active Medications Generic Name Dose Route Start Last Admin Trade Name Freq PRN Reason Stop Dose Admin Acetaminophen 1,000 mg 01/18/19 09:38 01/19/19 06:16 Ofirmev Injection - IVPB 1,000 mg Q6H PRN Administration PAIN LEVEL 6-10 Amitriptyline HCl 50 mg 01/17/19 22:00 01/18/19 21:28 Elavil - PO 50 mg HS ARNIE Administration Dexamethasone Sodium Phosphate 4 mg 01/17/19 12:30 01/17/19 14:34 Decadron Injection - IVPUSH 4 mg ONCE PRN Administration NAUSEA AND/OR VOMITING Diphenhydramine HCl 12.5 mg 01/17/19 12:30 Benadryl Injection - IVPUSH ONCE PRN FOR ITCHING Docusate Sodium 100 mg 01/17/19 22:00 01/19/19 06:16 Colace - PO 100 mg TID ARNIE Administration Hydromorphone HCl 10 mg 01/17/19 12:30 01/18/19 16:30 Dilaudid Creative Developer - SCHOOL TRAFFIC GUARD 01/24/19 12:30 10 mg SCHOOL TRAFFIC GUARD ARNIE Administration Protocol Hydromorphone HCl 8 mg 01/17/19 18:00 01/19/19 06:16 Dilaudid - PO 8 mg Q4HPO ARNIE Administration Lactated Ringer's 1,000 mls @ 125 mls/hr 01/17/19 12:30 01/18/19 13:10 Lactated Ringers Solution IV 125 mls/hr ASDIR ARNIE Administration Lidocaine 1 patch 01/18/19 10:00 01/18/19 11:09 Lidoderm Patch - TP 1 patch DAILY ARNIE Administration Lorazepam 2 mg 01/17/19 16:19 01/18/19 21:49 Ativan - PO 2 mg Q4H PRN Administration ANXIETY/AGITATION Miscellaneous 1 each 01/18/19 22:00 01/18/19 21:28 Lidoderm Patch Removal MC 1 each DAILY@2200 ARNIE Administration Ondansetron HCl 4 mg 01/17/19 12:30 Zofran Injection IVPUSH Q4H PRN NAUSEA AND/OR VOMITING Oxycodone HCl 30 mg 01/17/19 16:18 01/19/19 06:17 Roxicodone - PO 30 mg Q6HPO ARNIE Administration Pantoprazole Sodium 40 mg 01/18/19 10:00 01/18/19 09:48 Protonix Iv IVPUSH 40 mg DAILY ARNIE Administration Polyethylene Glycol 17 gm 01/17/19 22:00 01/18/19 21:29 Miralax (For Daily Use) - PO Not Given BID ARNIE Senna 2 tab 01/17/19 22:00 01/18/19 21:28 Senna - PO 2 tab HS ARNIE Administration ASSESSMENT/PLAN: Patient is a 58 year old female s/p Thoracolumbar spine: 1. Removal of hardware. 2. Inspection of fusion mass. 3. I&D with Dr Marina. POD#1 Her past medical history includes: blood transfusions with surgery appendectomy cesearan section tonsillectomy former smoker multiple sclerosis Back surgery-POD#2 Pain management with PO and SCHOOL TRAFFIC GUARD and lidocaine patches Monitor in ICU On soft diet, advance to regular Bowel regimen: senna, colace, miralax incentive spirometer encouraged hydration, can tolerate oral hydration has received post op antibiotics physical therapy fen regular monitor electrolytes/labs/vitals/airway prophy SCDs full code Visit type - Emergency Visit Emergency Visit: Yes ED Registration Date: 01/17/19 Care time: The patient presented to the Emergency Department on the above date and was hospitalized for further evaluation of their emergent condition. - New Patient This patient is new to me today: No - Critical Care Critical Care patient: Yes Total Critical Care Time (in minutes): 45 Critical Care Statement: The care of this patient involved high complexity decision making to prevent further life threatening deterioration of the patient 's condition and/or to evaluate & treat vital organ system(s) failure or risk of failure.
[2019-01-19] MEDS ORDERED: diazePAM 2 MG TABLET PO ONE (08:50)
--- NOTE | 2019-01-19 08:57 | PN ---
Progress Note (short form) - Note Progress Note: Anesthesia/Pain Pt seen and examined S:Alert and awake comfortable O: Vital Signs Temperature 98 F 01/19/19 06:00 Pulse Rate 68 01/19/19 06:00 Respiratory Rate 15 01/19/19 06:00 Blood Pressure 103/55 L 01/19/19 06:00 O2 Sat by Pulse Oximetry (%) 100 01/18/19 21:00 CBC, BMP 01/19/19 05:30 01/19/19 05:30 A/P: s/p Removal of spinal hardware Doing well post op Continue current care Continue BILINGUAL ADMINISTRATIVE ASSISTANT Hari Groves MD
[2019-01-19] MEDS: LIDOCAINE 5% TOPICAL PATCH TP SCH (10:07)
[2019-01-19] MEDS: POLYETHYLENE GLYCOL 3350 119 GM BTL PO SCH ×2 (10:11→22:04)
[2019-01-19] MEDS: PANTOPRAZOLE SODIUM 40 MG VIAL IVPUSH SCH (10:13)
[2019-01-19] MEDS: HYDROmorphone *PCA* 10MG/50ML DISP.SYRIN PCA SCH ×2 (10:55→18:41)
--- NOTE | 2019-01-19 14:16 | PN ---
Progress Note (short form) - Note Progress Note: POD#2 ICU C/O spasm in legs and back Start Flexeril and Baclofen Sitting in chair Legs feel stronger Wound drainage drain in situ PLAN Dressing change Monday Continue med mx
[2019-01-19] MEDS: LACTATED RINGERS SOLUTION 1,000 ML IV SCH (14:33)
[2019-01-19] MEDS ORDERED: PT OWN MED DRAWER 7, Y5N ONE ×2 (15:45→21:40)
[2019-01-19] MEDS: CYCLOBENZAPRINE HCL 5 MG TABLET PO SCH ×2 (15:53→22:02)
[2019-01-19] MEDS: BACLOFEN 10 MG TABLET (FP) PO SCH ×2 (15:53→22:02)
[2019-01-19] MEDS: LORazepam 1 MG TABLET PO PRN (20:14)
[2019-01-19] MEDS ORDERED: KETOROLAC TROMETHAMINE 30 MG/1 ML VIAL IVPUSH ONE (20:15)
[2019-01-19] MEDS: AMITRIPTYLINE HCL 25 MG TABLET (FP) PO SCH (22:00)
[2019-01-19] MEDS: LIDOCAINE PATCH REMOVAL MC SCH (22:03)
[2019-01-19] MEDS: SENNOSIDES 8.6MG TABLET (FP) PO SCH (22:04)
[2019-01-20] MEDS ORDERED: ACETAMINOPHEN 1000 MG/100 ML VIAL (NON FORMULARY) IVPB ONE
[2019-01-20] MEDS: DOCUSATE SODIUM 100 MG CAPSULE (FP) PO SCH ×3 (06:26→21:19)
[2019-01-20] MEDS: BACLOFEN 10 MG TABLET (FP) PO SCH ×3 (06:26→21:17)
[2019-01-20] MEDS: CYCLOBENZAPRINE HCL 5 MG TABLET PO SCH ×3 (06:26→21:17)
[2019-01-20] MEDS: oxyCODONE HCL 5 MG TABLET PO SCH ×4 (06:27→23:38)
[2019-01-20] MEDS: PANTOPRAZOLE SODIUM 40 MG VIAL IVPUSH SCH (09:55)
[2019-01-20] MEDS: POLYETHYLENE GLYCOL 3350 119 GM BTL PO SCH ×2 (09:55→21:18)
[2019-01-20] MEDS: LIDOCAINE 5% TOPICAL PATCH TP SCH (09:55)
[2019-01-20] MEDS: HYDROmorphone *PCA* 10MG/50ML DISP.SYRIN PCA SCH (12:37)
[2019-01-20] MEDS: LACTATED RINGERS SOLUTION 1,000 ML IV SCH (12:38)
[2019-01-20] MEDS ORDERED: PT OWN MED DRAWER 7, Y5N ONE ×2 (14:31→19:46)
--- NOTE | 2019-01-20 17:24 | PN ---
Physical Exam: SUBJECTIVE: Patient seen and examined. comfortable at rest. OBJECTIVE: Vital Signs Period Temp Pulse Resp BP Sys/Gallagher Pulse Ox Last 24 Hr 71-97 18-20 103-137/57-103 100-100 GENERAL: The patient is awake, alert, and fully oriented, EYES: PERRL, extraocular movements intact, sclera anicteric, conjunctiva clear. No ptosis. ENT: Ears normal, nares patent, oropharynx clear without exudates, moist mucous membranes. NECK: Trachea midline, full range of motion, supple. LUNGS: Breath sounds equal, clear to auscultation bilaterally, no wheezes, HEART: Regular rate and rhythm. ABDOMEN: Soft, nontender, nondistended, normoactive bowel sounds, NEUROLOGICAL: Normal speech, gait not observed. PSYCH: Normal mood, normal affect. SKIN: surgical dressing c/d/i Active Medications Generic Name Dose Route Start Last Admin Trade Name Freq PRN Reason Stop Dose Admin Amitriptyline HCl 50 mg 01/17/19 22:00 01/19/19 22:00 Elavil - PO 50 mg HS ARNIE Administration Baclofen 10 mg 01/19/19 15:45 01/20/19 14:33 Lioresal - PO 10 mg TID ARNIE Administration Cyclobenzaprine HCl 5 mg 01/19/19 15:45 01/20/19 14:33 Cyclobenzaprine Hcl PO 5 mg TID ARNIE Administration Dexamethasone Sodium Phosphate 4 mg 01/17/19 12:30 01/17/19 14:34 Decadron Injection - IVPUSH 4 mg ONCE PRN Administration NAUSEA AND/OR VOMITING Diphenhydramine HCl 12.5 mg 01/17/19 12:30 Benadryl Injection - IVPUSH ONCE PRN FOR ITCHING Docusate Sodium 100 mg 01/17/19 22:00 01/20/19 16:58 Colace - PO Not Given TID ARNIE Hydromorphone HCl 10 mg 01/17/19 12:30 01/20/19 12:37 Dilaudid Machinist Outside - MELTER ASSISTANT 01/24/19 12:30 10 mg MELTER ASSISTANT ARNIE Administration Protocol Hydromorphone HCl 8 mg 01/17/19 18:00 01/20/19 14:32 Dilaudid - PO 8 mg Q4HPO ARNIE Administration Lactated Ringer's 1,000 mls @ 125 mls/hr 01/17/19 12:30 01/20/19 12:38 Lactated Ringers Solution IV 125 mls/hr ASDIR ARNIE Administration Lidocaine 1 patch 01/18/19 10:00 01/20/19 09:55 Lidoderm Patch - TP 1 patch DAILY ARNIE Administration Lorazepam 2 mg 01/17/19 16:19 01/19/19 20:14 Ativan - PO 2 mg Q4H PRN Administration ANXIETY/AGITATION Miscellaneous 1 each 01/18/19 22:00 01/19/19 22:03 Lidoderm Patch Removal MC 1 each DAILY@2200 ARNIE Administration Ondansetron HCl 4 mg 01/17/19 12:30 Zofran Injection IVPUSH Q4H PRN NAUSEA AND/OR VOMITING Oxycodone HCl 30 mg 01/17/19 16:18 01/20/19 12:37 Roxicodone - PO 30 mg Q6HPO ARNIE Administration Pantoprazole Sodium 40 mg 01/18/19 10:00 01/20/19 09:55 Protonix Iv IVPUSH 40 mg DAILY ARNIE Administration Polyethylene Glycol 17 gm 01/17/19 22:00 01/20/19 09:55 Miralax (For Daily Use) - PO Not Given BID ARNIE Senna 2 tab 01/17/19 22:00 01/19/19 22:04 Senna - PO Not Given HS ARNIE ASSESSMENT/PLAN: Patient is a 58 year old female s/p Thoracolumbar spine: 1. Removal of hardware. 2. Inspection of fusion mass. 3. I&D with Dr Marina. Her past medical history includes: blood transfusions with surgery appendectomy cesearan section tonsillectomy former smoker multiple sclerosis Back surgery-POD#3 Pain management with PO and MELTER ASSISTANT and lidocaine patches Monitor in ICU regular diet Bowel regimen: senna, colace, miralax incentive spirometer encouraged hydration, can tolerate oral hydration has received post op antibiotics physical therapy fen regular monitor electrolytes/labs/vitals/airway prophy SCDs full code Visit type - Emergency Visit Emergency Visit: Yes ED Registration Date: 01/17/19 Care time: The patient presented to the Emergency Department on the above date and was hospitalized for further evaluation of their emergent condition. - New Patient This patient is new to me today: No - Critical Care Critical Care patient: No - Discharge Referral Referred to [facility] Med [facility] No
[2019-01-20] MEDS: LORazepam 1 MG TABLET PO PRN (19:55)
[2019-01-20] MEDS: AMITRIPTYLINE HCL 25 MG TABLET (FP) PO SCH (21:18)
[2019-01-20] MEDS: SENNOSIDES 8.6MG TABLET (FP) PO SCH (21:19)
[2019-01-20] MEDS: LIDOCAINE PATCH REMOVAL MC SCH (22:00)
[2019-01-21] MEDS: oxyCODONE HCL 5 MG TABLET PO SCH ×3 (06:17→18:34)
[2019-01-21] MEDS: DOCUSATE SODIUM 100 MG CAPSULE (FP) PO SCH ×3 (06:18→23:04)
[2019-01-21] MEDS: BACLOFEN 10 MG TABLET (FP) PO SCH ×3 (06:22→23:04)
[2019-01-21] MEDS: CYCLOBENZAPRINE HCL 5 MG TABLET PO SCH ×3 (06:22→23:04)
--- NOTE | 2019-01-21 08:59 | PN ---
Physical Exam: SUBJECTIVE: Patient seen and examined in the icu. pain controlled. wants to go to inpatient rehab. OBJECTIVE: start supplements, discontinue ivf Vital Signs Period Temp Pulse Resp BP Sys/Gallagher Pulse Ox Last 24 Hr 97.2 F-97.4 F 69-86 12-20 87-121/36-75 100-100 GENERAL: The patient is awake, alert, and fully oriented, EYES: PERRL, extraocular movements intact, sclera anicteric, conjunctiva clear. No ptosis. ENT: Ears normal, nares patent, oropharynx clear without exudates, moist mucous membranes. NECK: Trachea midline, full range of motion, supple. HEART: Regular rate and rhythm. ABDOMEN: Soft, nontender, nondistended, normoactive bowel sounds, NEUROLOGICAL: Normal speech, gait not observed. PSYCH: Normal mood, normal affect. SKIN: surgical dressing c/d/i Active Medications Generic Name Dose Route Start Last Admin Trade Name Freq PRN Reason Stop Dose Admin Amitriptyline HCl 50 mg 01/17/19 22:00 01/20/19 21:18 Elavil - PO 50 mg HS ARNIE Administration Baclofen 10 mg 01/19/19 15:45 01/21/19 06:22 Lioresal - PO 10 mg TID ARNIE Administration Cyclobenzaprine HCl 5 mg 01/19/19 15:45 01/21/19 06:22 Cyclobenzaprine Hcl PO 5 mg TID ARNIE Administration Dexamethasone Sodium Phosphate 4 mg 01/17/19 12:30 01/17/19 14:34 Decadron Injection - IVPUSH 4 mg ONCE PRN Administration NAUSEA AND/OR VOMITING Diphenhydramine HCl 12.5 mg 01/17/19 12:30 Benadryl Injection - IVPUSH ONCE PRN FOR ITCHING Docusate Sodium 100 mg 01/17/19 22:00 01/21/19 06:18 Colace - PO Not Given TID ARNIE Hydromorphone HCl 10 mg 01/17/19 12:30 01/20/19 12:37 Dilaudid Consumer Loan Underwriter - TAILINGS WORKER 01/24/19 12:30 10 mg TAILINGS WORKER ARNIE Administration Protocol Hydromorphone HCl 8 mg 01/17/19 18:00 01/21/19 06:23 Dilaudid - PO Not Given Q4HPO ARNIE Lidocaine 1 patch 01/18/19 10:00 01/20/19 09:55 Lidoderm Patch - TP 1 patch DAILY ARNIE Administration Lorazepam 2 mg 01/17/19 16:19 01/20/19 19:55 Ativan - PO 2 mg Q4H PRN Administration ANXIETY/AGITATION Miscellaneous 1 each 01/18/19 22:00 01/20/19 22:00 Lidoderm Patch Removal MC 1 each DAILY@2200 ARNIE Administration Ondansetron HCl 4 mg 01/17/19 12:30 Zofran Injection IVPUSH Q4H PRN NAUSEA AND/OR VOMITING Oxycodone HCl 30 mg 01/17/19 16:18 01/21/19 06:17 Roxicodone - PO Not Given Q6HPO ARNIE Pantoprazole Sodium 40 mg 01/18/19 10:00 01/20/19 09:55 Protonix Iv IVPUSH 40 mg DAILY ARNIE Administration Polyethylene Glycol 17 gm 01/17/19 22:00 01/20/19 21:18 Miralax (For Daily Use) - PO Not Given BID ARNIE Senna 2 tab 01/17/19 22:00 01/20/19 21:19 Senna - PO Not Given HS ARNIE ASSESSMENT/PLAN: Patient is a 58 year old female s/p Thoracolumbar spine: 1. Removal of hardware. 2. Inspection of fusion mass. 3. I&D with Dr Marina. Her past medical history includes: blood transfusions with surgery appendectomy cesearan section tonsillectomy former smoker multiple sclerosis Back surgery-POD#4 Pain management with PO and TAILINGS WORKER and lidocaine patches Monitor in ICU regular diet Bowel regimen: senna, colace, miralax incentive spirometer encouraged hydration, can tolerate oral hydration has received post op antibiotics physical therapy discharge planning when cleared by surgery stop ivf, supplements fen regular monitor electrolytes/labs/vitals/airway prophy SCDs full code Visit type - Emergency Visit Emergency Visit: Yes ED Registration Date: 01/17/19 Care time: The patient presented to the Emergency Department on the above date and was hospitalized for further evaluation of their emergent condition. - New Patient This patient is new to me today: No - Critical Care Critical Care patient: No - Discharge Referral [facility]erred to [facility] No
--- NOTE | 2019-01-21 09:00 | PN ---
Progress Note (short form) - Note Progress Note: POD #4 - s/p removal of spinal hardware. VSS. Pt. resting comfortably in bed with FOUNDRY WORKER still going, and Flexeril and Baclofen added for spasm in legs/back. Will continue FOUNDRY WORKER for now as part of multimodal pain management.
[2019-01-21] MEDS ORDERED: PT OWN MED DRAWER 7, Y5N ONE ×2 (09:02→15:50)
[2019-01-21 09:10] LABS: BASO % 0.5 % (0-2.0); EOS % 7.3 % (0-4.5); HEMOGLOBIN 10.6 GM/dL (10.7-15.3); MCH 31.6 pg (25.7-33.7); MONO % 6.8 % (3.8-10.2); NEUT % 50.4 % (42.8-82.8); PLATELET COUNT 191 K/MM3 (134-434); RBC 3.34 M/mm3 (3.60-5.2); RDW 13.8 % (11.6-15.6); WHITE BLOOD COUNT 4.6 K/mm3 (4.0-10.0)
[2019-01-21] MEDS: LIDOCAINE 5% TOPICAL PATCH TP SCH (09:17)
[2019-01-21] MEDS: POLYETHYLENE GLYCOL 3350 119 GM BTL PO SCH ×2 (09:18→23:05)
[2019-01-21] MEDS: PANTOPRAZOLE SODIUM 40 MG VIAL IVPUSH SCH (09:19)
[2019-01-21 09:42] LABS: ALBUMIN 2.6 g/dl (3.4-5.0); ALK PHOS 70 U/L (45-117); ANION GAP 4 MMOL/L (8-16); BILIRUBIN,TOTAL 0.4 mg/dL (0.2-1); BLOOD UREA NITROGEN 4 mg/dL (7-18); CALCIUM 8.4 mg/dL (8.5-10.1); CHLORIDE 106 mmol/L (98-107); CO2 32 mmol/L (21-32); CREATININE 0.4 mg/dL (0.55-1.3); GLUCOSE,RANDOM 88 mg/dL (74-106); MAGNESIUM 1.5 mg/dL (1.8-2.4); PHOSPHOROUS 4.1 mg/dL (2.5-4.9); POTASSIUM 3.9 mmol/L (3.5-5.1); SGOT/AST 15 U/L (15-37); SGPT/ALT 17 U/L (13-61); SODIUM 142 mmol/L (136-145)
[2019-01-21] MEDS ORDERED: MAGNESIUM OXIDE 400 MG TABLET (FP) PO ONE (10:15)
[2019-01-21] MEDS: HYDROmorphone *PCA* 10MG/50ML DISP.SYRIN PCA SCH ×3 (10:39→20:47)
--- NOTE | 2019-01-21 11:52 | PN ---
Physical Exam: SUBJECTIVE: Patient seen and examined this AM in ICU. Continues to have pain with movement. Otherwise no new complaints. No acute overnight events. OBJECTIVE: Vital Signs Period Temp Pulse Resp BP Sys/Gallagher Pulse Ox Last 24 Hr 97.2 F-97.9 F 69-86 12-20 87-121/36-69 100-100 GENERAL: A&Ox3, NAD HEAD: NCAT EYES: PERRL, EOMI ENT: Moist mucous membranes NECK: Supple, R IJ placed with dressing C/D/I LUNGS: Diminished breath sounds at the bases, No wheezes, No crackles HEART: Regular rate and rhythm, normal S1 and S2 without murmur ABDOMEN: Soft, nontender, not distended, + bowel sounds, no guarding BACK: Surgical dressing C/D/I without surrounding tenderness, drain present EXTREMITIES: No peripheral edema NEUROLOGICAL: Cranial nerves II-XII intact. Normal speech. SKIN: Warm, dry Laboratory Results - last 24 hr 01/21/19 01/21/19 08:30 08:30 WBC 4.6 RBC 3.34 L Hgb 10.6 L Hct 31.0 L MCV 93.0 MCH 31.6 MCHC 34.0 RDW 13.8 Plt Count 191 D MPV 9.0 Absolute Neuts (auto) 2.3 Neutrophils % 50.4 Lymphocytes % 35.0 Monocytes % 6.8 Eosinophils % 7.3 H D Basophils % 0.5 Nucleated RBC % 0 Sodium 142 Potassium 3.9 Chloride 106 Carbon Dioxide 32 Anion Gap 4 L BUN 4 L Creatinine 0.4 L Creat Clearance w eGFR > 60 Random Glucose 88 Calcium 8.4 L Phosphorus 4.1 Magnesium 1.5 L Total Bilirubin 0.4 AST 15 ALT 17 Alkaline Phosphatase 70 Total Protein 5.0 L Albumin 2.6 L Active Medications Acetaminophen (Ofirmev Injection -) 1,000 mg IVPB Q6H [facility] Stop: 01/22/19 06:01 Amitriptyline HCl (Elavil -) 50 mg PO HS [facility] Last Admin: 01/20/19 21:18 Dose: 50 mg Baclofen (Lioresal -) 10 mg PO TID [facility] Last Admin: 01/21/19 06:22 Dose: 10 mg Cyclobenzaprine HCl (Cyclobenzaprine Hcl) 5 mg PO TID [facility] Last Admin: 01/21/19 06:22 Dose: 5 mg Dexamethasone Sodium Phosphate (Decadron Injection -) 4 mg IVPUSH ONCE PRN PRN Reason: NAUSEA AND/OR VOMITING Last Admin: 01/17/19 14:34 Dose: 4 mg Diphenhydramine HCl (Benadryl Injection -) 12.5 mg IVPUSH ONCE PRN PRN Reason: FOR ITCHING Docusate Sodium (Colace -) 100 mg PO TID [facility] Last Admin: 01/21/19 06:18 Dose: Not Given Hydromorphone HCl (Dilaudid Aerial Installer -) 10 mg SHEET HEATER SHEET HEATER [facility]; Protocol Stop: 01/24/19 12:30 Last Admin: 01/21/19 10:39 Dose: 10 mg Hydromorphone HCl (Dilaudid -) 8 mg PO Q4HPO [facility] Last Admin: 01/21/19 09:54 Dose: 8 mg Ketorolac Tromethamine (Toradol Injection -) 30 mg IM ONCE ONE Stop: 01/21/19 11:48 Lidocaine (Lidoderm Patch -) 1 patch TP DAILY [facility] Last Admin: 01/21/19 09:17 Dose: 1 patch Lorazepam (Ativan -) 2 mg PO Q4H PRN PRN Reason: ANXIETY/AGITATION Last Admin: 01/20/19 19:55 Dose: 2 mg Miscellaneous (Lidoderm Patch Removal) 1 each MC DAILY@2200 [facility] Last Admin: 01/20/19 22:00 Dose: 1 each Ondansetron HCl (Zofran Injection) 4 mg IVPUSH Q4H PRN PRN Reason: NAUSEA AND/OR VOMITING Oxycodone HCl (Roxicodone -) 30 mg PO Q6HPO [facility] Last Admin: 01/21/19 06:17 Dose: Not Given Pantoprazole Sodium (Protonix Iv) 40 mg IVPUSH DAILY [facility] Last Admin: 01/21/19 09:19 Dose: 40 mg Polyethylene Glycol (Miralax (For Daily Use) -) 17 gm PO BID [facility] Last Admin: 01/21/19 09:18 Dose: Not Given Senna (Senna -) 2 tab PO HS [facility] Last Admin: 01/20/19 21:19 Dose: Not Given ASSESSMENT/PLAN: 58 y/o F with PMHx of MS will be monitored in ICU s/p removal of hardware, inspection of fusion mass, and I&D thoracolumbar spine POD #4. #Neuro S/P Thoracolumbar spine Removal of hardware, Inspection of fusion mass, I&D Hx of MS (Not on medications), Multiple back surgeries -Vitals Q4H -Pain control per anaesthesia team; recommend SHEET HEATER; NSAID's OK -Pain Management consulted (Dr. Morris) -PT/OT/Rehab, OOB -WBAT B/L LE -Neuro checks Q4H -Turn and position [id number] -Morse catheter to be d/c'ed once ambulating -Continue LR @ 125 mls/hr -Continue home dose Oxicodone, Dilaudid as per surgical rec's -Tylenol IV Q6H ARNIE, Toradol 30mg IM #Cardio -No active issues, continue to monitor #Pulm -Incentive spirometry -Supplemetal O2 to maintain SpO2 > 90% #GI -Continue Promethazine, Ondansetron PRN for vomiting #Renal -Continue LR @ 125 mls/hr -Monitor I&Os, urine output #FEN -Continue LR @ 125 mls/hr -Replete Lytes PRN -Soft diet #PPx -DVT: MIGUEL ANGEL's, SCD's -GI: Pantoprazole #LTD -R IJ placed in OR on 01/17 -HemoVac placed 01/17 -Morse Catheter placed 01/17 Dispo: Transfer to the floors Visit type - Emergency Visit Emergency Visit: Yes ED Registration Date: 01/17/19 Care time: The patient presented to the Emergency Department on the above date and was hospitalized for further evaluation of their emergent condition. - New Patient This patient is new to me today: No - Critical Care Critical Care patient: Yes Total Critical Care Time (in minutes): 36 Critical Care Statement: The care of this patient involved high complexity decision making to prevent further life threatening deterioration of the patient 's condition and/or to evaluate & treat vital organ system(s) failure or risk of failure.
[2019-01-21] MEDS ORDERED: KETOROLAC TROMETHAMINE 30 MG/1 ML VIAL IM ONE ×2 (12:00→19:18)
[2019-01-21] MEDS: ACETAMINOPHEN 1000 MG/100 ML VIAL (NON FORMULARY) IVPB SCH ×2 (12:27→18:38)
--- NOTE | 2019-01-21 13:01 | PN ---
Teaching Attending Note Name of Resident: Deneen Car ATTENDING PHYSICIAN STATEMENT I saw and evaluated the patient. I reviewed the resident's note and discussed the case with the resident. I agree with the resident's findings and plan as documented. SUBJECTIVE: Patient seen and examined in the ICU. Still with pain issues. Slightly better than yesterday. No CP or SOB. Intake & Output 01/18/19 01/19/19 01/20/19 01/21/19 23:59 23:59 23:59 23:59 Intake Total 3286 4327 1950 1060 Output Total 2190 3110 1680 3800 Balance 1096 1217 270 -2740 Weight 170 lb Last Vital Signs Temp Pulse Resp BP Pulse Ox 97.9 F 84 16 117/50 L 100 01/21/19 09:58 01/21/19 12:39 01/21/19 12:39 01/21/19 12:39 01/21/19 08:52 Active Medications Acetaminophen (Ofirmev Injection -) 1,000 mg IVPB Q6H [facility] Stop: 01/22/19 06:01 Last Admin: 01/21/19 12:27 Dose: 1,000 mg Amitriptyline HCl (Elavil -) 50 mg PO HS [facility] Last Admin: 01/20/19 21:18 Dose: 50 mg Baclofen (Lioresal -) 10 mg PO TID [facility] Last Admin: 01/21/19 06:22 Dose: 10 mg Cyclobenzaprine HCl (Cyclobenzaprine Hcl) 5 mg PO TID [facility] Last Admin: 01/21/19 06:22 Dose: 5 mg Dexamethasone Sodium Phosphate (Decadron Injection -) 4 mg IVPUSH ONCE PRN PRN Reason: NAUSEA AND/OR VOMITING Last Admin: 01/17/19 14:34 Dose: 4 mg Diphenhydramine HCl (Benadryl Injection -) 12.5 mg IVPUSH ONCE PRN PRN Reason: FOR ITCHING Docusate Sodium (Colace -) 100 mg PO TID [facility] Last Admin: 01/21/19 06:18 Dose: Not Given Hydromorphone HCl (Dilaudid Quarry Extraction Worker -) 10 mg GLOBAL CEO GLOBAL CEO [facility]; Protocol Stop: 01/24/19 12:30 Last Admin: 01/21/19 12:47 Dose: Not Given Hydromorphone HCl (Dilaudid -) 8 mg PO Q4HPO [facility] Last Admin: 01/21/19 09:54 Dose: 8 mg Lidocaine (Lidoderm Patch -) 1 patch TP DAILY [facility] Last Admin: 01/21/19 09:17 Dose: 1 patch Lorazepam (Ativan -) 2 mg PO Q4H PRN PRN Reason: ANXIETY/AGITATION Last Admin: 01/20/19 19:55 Dose: 2 mg Miscellaneous (Lidoderm Patch Removal) 1 each MC DAILY@2200 [facility] Last Admin: 01/20/19 22:00 Dose: 1 each Ondansetron HCl (Zofran Injection) 4 mg IVPUSH Q4H PRN PRN Reason: NAUSEA AND/OR VOMITING Oxycodone HCl (Roxicodone -) 30 mg PO Q6HPO [facility] Last Admin: 01/21/19 12:28 Dose: 30 mg Pantoprazole Sodium (Protonix Iv) 40 mg IVPUSH DAILY [facility] Last Admin: 01/21/19 09:19 Dose: 40 mg Polyethylene Glycol (Miralax (For Daily Use) -) 17 gm PO BID [facility] Last Admin: 01/21/19 09:18 Dose: Not Given Senna (Senna -) 2 tab PO HS [facility] Last Admin: 01/20/19 21:19 Dose: Not Given GENERAL: Awake, alert, uncomfortable due to pain HEAD: Normal with no signs of trauma. EYES: sclera anicteric, conjunctiva clear. EARS, NOSE, THROAT: Ears normal, nares patent, oropharynx clear without exudates. Moist mucous membranes. NECK: Normal range of motion, supple without lymphadenopathy, JVD, or masses. LUNGS: Clear to auscultation bilaterally. No wheezes, and no crackles. No accessory muscle use. HEART: Regular rate and rhythm, normal S1 and S2 without murmur, rub or gallop. ABDOMEN: Soft, nontender, not distended, normoactive bowel sounds, no guarding, no rebound, no masses. No hepatomegaly or splenomegaly. MUSCULOSKELETAL: Normal range of motion at all joints. No bony deformities or tenderness. No CVA tenderness. UPPER EXTREMITIES: 2+ pulses, warm, well-perfused. No cyanosis. No clubbing. No peripheral edema. LOWER EXTREMITIES: 2+ pulses, warm, well-perfused. No calf tenderness. No peripheral edema. NEUROLOGICAL: Non-focal SKIN: Warm, dry, normal turgor, no rashes or lesions noted. Laboratory Results - last 24 hr 01/21/19 01/21/19 08:30 08:30 WBC 4.6 RBC 3.34 L Hgb 10.6 L Hct 31.0 L MCV 93.0 MCH 31.6 MCHC 34.0 RDW 13.8 Plt Count 191 D MPV 9.0 Absolute Neuts (auto) 2.3 Neutrophils % 50.4 Lymphocytes % 35.0 Monocytes % 6.8 Eosinophils % 7.3 H D Basophils % 0.5 Nucleated RBC % 0 Sodium 142 Potassium 3.9 Chloride 106 Carbon Dioxide 32 Anion Gap 4 L BUN 4 L Creatinine 0.4 L Creat Clearance w eGFR > 60 Random Glucose 88 Calcium 8.4 L Phosphorus 4.1 Magnesium 1.5 L Total Bilirubin 0.4 AST 15 ALT 17 Alkaline Phosphatase 70 Total Protein 5.0 L Albumin 2.6 L ASSESSMENT/PLAN: POD #4: 1. Removal of hardware. 2. Inspection of fusion mass. 3. I&D. Due to progressive lower extremity neurological decline Pain control per anaesthesia PT/OT/Rehab, OOB WBAT B/L LE Neuro checks Q4H IVF Incentive spirometry Supplemental O2 to maintain SpO2 > 90% GI prophylaxis Dr Garza
--- NOTE | 2019-01-21 13:33 | PATH ---
Surgical Pathology Report Patient Name: LALO SANCHES [facility]. Rec. #: [id number] /Age/Gender: 1960 (Age: 58) / F Account: [id number] Location: ICU RESIDENT CARE COORDINATOR Taken: 01/17/2019 Received: 01/18/2019 Reported: 01/21/2019 Physicians: Shayan Marina M.D. Specimen(s) Received REMOVED HARDWARE Clinical History Spinal stenosis Final Diagnosis T10-L1, REMOVAL OF HARDWARE AND REVISION LAMINECTOMY: SURGICAL HARDWARE. MACROSCOPIC DIAGNOSIS. Electronically Signed Renetta Blackman M.D. Gross Description Received fresh labeled "removed hardware," are 2 wise metallic bent rods measuring 29 cm and 30.5 cm in length. There are 4 yellow metallic clamp-like portions of hardware present ranging from 5.0-5.5 cm in greatest dimension. Also received within the same container are 28 metallic screws ranging from 0.4-5.5 cm in length. No soft tissue is present. No sections are submitted, gross only. 01/18/201901/18/2019
[2019-01-21] MEDS ORDERED: DEXAMETHASONE SOD PHOSPHATE 4 MG/1 ML VIAL IVPUSH ONE (19:18)
[2019-01-21] MEDS ORDERED: ONDANSETRON 4 MG/2 ML VIAL IVPUSH PRN (19:18)
[2019-01-21] MEDS ORDERED: LORazepam 1 MG TABLET PO PRN (19:18)
--- NOTE | 2019-01-21 19:44 | PN ---
Progress Note (short form) - Note Progress Note: POD#4 In ICU Feeling well All parameters at baseline Apyrexial C/O mild incisional pain no leg pain Wound dry no erythema New dressing applied. PLAN Mobilize with pt Pain mx toradol and IV tylenol D/C planning home ? Wed
[2019-01-21] MEDS ORDERED: LIDOCAINE PATCH REMOVAL MC SCH ×2 (22:00)
[2019-01-21] MEDS: SENNOSIDES 8.6MG TABLET (FP) PO SCH (23:04)
[2019-01-21] MEDS: AMITRIPTYLINE HCL 25 MG TABLET (FP) PO SCH (23:04)
[2019-01-22] MEDS: oxyCODONE HCL 5 MG TABLET PO SCH ×5 (00:56→23:24)
[2019-01-22] MEDS: ACETAMINOPHEN 1000 MG/100 ML VIAL (NON FORMULARY) IVPB SCH ×2 (01:36→08:13)
[2019-01-22] MEDS: DOCUSATE SODIUM 100 MG CAPSULE (FP) PO SCH ×3 (05:51→21:07)
[2019-01-22] MEDS: BACLOFEN 10 MG TABLET (FP) PO SCH ×3 (05:51→21:10)
[2019-01-22] MEDS: CYCLOBENZAPRINE HCL 5 MG TABLET PO SCH ×3 (06:09→21:08)
[2019-01-22] MEDS: HYDROmorphone *PCA* 10MG/50ML DISP.SYRIN PCA SCH (06:10)
[2019-01-22 07:34] LABS: BASO % 0.2 % (0-2.0); EOS % 0.2 % (0-4.5); HEMATOCRIT 32.8 % (32.4-45.2); HEMOGLOBIN 11.2 GM/dL (10.7-15.3); LYMPH % 10.2 % (8-40); MCH 31.6 pg (25.7-33.7); MEAN CELL VOLUME 92.9 fl (80-96); MEAN PLT VOLUME 8.9 fl (7.5-11.1); MONO % 2.3 % (3.8-10.2); NEUT % 87.1 % (42.8-82.8); PLATELET COUNT 239 K/MM3 (134-434); RBC 3.54 M/mm3 (3.60-5.2); RDW 13.5 % (11.6-15.6); WHITE BLOOD COUNT 6.6 K/mm3 (4.0-10.0)
[2019-01-22 08:54] LABS: ALBUMIN 2.6 g/dl (3.4-5.0); ALK PHOS 80 U/L (45-117); ANION GAP 4 MMOL/L (8-16); BILIRUBIN,TOTAL 0.3 mg/dL (0.2-1); BLOOD UREA NITROGEN 8 mg/dL (7-18); CALCIUM 8.3 mg/dL (8.5-10.1); CHLORIDE 105 mmol/L (98-107); CO2 30 mmol/L (21-32); CREATININE 0.4 mg/dL (0.55-1.3); GLUCOSE,RANDOM 126 mg/dL (74-106); PHOSPHOROUS 4.6 mg/dL (2.5-4.9); POTASSIUM 4.5 mmol/L (3.5-5.1); SGOT/AST 14 U/L (15-37); SGPT/ALT 22 U/L (13-61); SODIUM 139 mmol/L (136-145); TOT PROT 5.5 g/dl (6.4-8.2)
[2019-01-22] MEDS: LIDOCAINE 5% TOPICAL PATCH TP SCH (10:07)
[2019-01-22] MEDS: PANTOPRAZOLE SODIUM 40 MG VIAL IVPUSH SCH (10:08)
[2019-01-22] MEDS: POLYETHYLENE GLYCOL 3350 119 GM BTL PO SCH ×2 (10:14→21:09)
[2019-01-22] MEDS ORDERED: PT OWN MED DRAWER 7, Y5N ONE (13:38)
--- NOTE | 2019-01-22 15:02 | PN ---
Progress Note (short form) - Note Progress Note: Patient c/o pain score of 6-7/10 on Dilaudid MAP COMPILER.Will dc MAP COMPILER today and put patient on PO pain medication as she wants to be DC tomorrow.No any anesthesia related problem.Patient DC from the anesthesia care.
--- NOTE | 2019-01-22 17:59 | PN ---
Progress Note, Physician Chief Complaint: 24HR EVENTS: -transferred out of ICU -ambulated with PT today -CITRIX LEAD pump d/donna at 3pm - Current Medication List Current Medications: Active Medications Amitriptyline HCl (Elavil -) 50 mg PO [facility] Last Admin: 01/21/19 23:04 Dose: 50 mg Baclofen (Lioresal -) 10 mg PO TID [facility] Last Admin: 01/22/19 13:39 Dose: 10 mg Cyclobenzaprine HCl (Cyclobenzaprine Hcl) 5 mg PO TID [facility] Last Admin: 01/22/19 13:40 Dose: 5 mg Docusate Sodium (Colace -) 100 mg PO TID [facility] Last Admin: 01/22/19 13:39 Dose: 100 mg Hydromorphone HCl (Dilaudid -) 8 mg PO Q4HPO [facility] Last Admin: 01/22/19 17:21 Dose: 8 mg Lidocaine (Lidoderm Patch -) 1 patch TP DAILY [facility] Last Admin: 01/22/19 10:07 Dose: 1 patch Lorazepam (Ativan -) 2 mg PO Q4H PRN PRN Reason: ANXIETY/AGITATION Last Admin: 01/22/19 01:42 Dose: 2 mg Miscellaneous (Lidoderm Patch Removal) 1 each MC DAILY@2200 [facility] Ondansetron HCl (Zofran Injection) 4 mg IVPUSH Q4H PRN PRN Reason: NAUSEA AND/OR VOMITING Oxycodone HCl (Roxicodone -) 30 mg PO Q6HPO [facility] Last Admin: 01/22/19 17:21 Dose: 30 mg Pantoprazole Sodium (Protonix Iv) 40 mg IVPUSH DAILY [facility] Last Admin: 01/22/19 10:08 Dose: 40 mg Polyethylene Glycol (Miralax (For Daily Use) -) 17 gm PO BID [facility] Last Admin: 01/22/19 10:14 Dose: Not Given Senna (Senna -) 2 tab PO [facility] Last Admin: 01/21/19 23:04 Dose: 2 tab - Objective Vital Signs: Vital Signs Temperature 97.7 F 01/22/19 14:39 Pulse Rate 89 01/22/19 14:39 Respiratory Rate 18 01/22/19 14:39 Blood Pressure 118/76 01/22/19 14:39 O2 Sat by Pulse Oximetry (%) 97 01/22/19 09:00 Constitutional: Yes: No Distress, Calm Eyes: Yes: Conjunctiva Clear, EOM Intact, PERRL HENT: Yes: Atraumatic, Normocephalic Neck: Yes: Supple, Trachea Midline Cardiovascular: Yes: Regular Rate and Rhythm Respiratory: Yes: Regular, CTA Bilaterally Gastrointestinal: Yes: Normal Bowel Sounds, Soft ...Rectal Exam: Yes: Deferred Genitourinary: Yes: Morse Present Musculoskeletal: Yes: Back Pain, Joint Stiffness, Muscle Weakness Extremities: Yes: WNL Edema: No Peripheral Pulses WNL: Yes Peripheral Pulses: Left Radial: 2+, Right Radial: 2+ Integumentary: Yes: WNL Wound/Incision: Yes: Clean/Dry, Dressing Dry and Intact Neurological: Yes: Alert, Oriented ...Motor Strength: WNL Psychiatric: Yes: WNL, Alert, Oriented Labs: CBC, BMP 01/22/19 06:40 01/22/19 06:40 Problem List - Problems (1) Status post hardware removal Assessment/Plan: WBAT B/L LE d/c CITRIX LEAD pump pain control with flexeril/dilaudid/lidoderm patch/baclofen and oxycodone Pt has resources set up for PT/OT close to home (3hrs away) Code(s): Z98.890 - OTHER SPECIFIED POSTPROCEDURAL STATES Impression/Plan Impression/Plan: PPX: OOB to chair ambulate Bowel regimen with senna/colace/miralax PPI FEN: regular diet DISPO Full code possible d/c tomorrow 01/23, will await final recommendations from surgical team. Visit type - Emergency Visit Emergency Visit: No - New Patient This patient is new to me today: Yes Date on this admission: 01/22/19 - Critical Care Critical Care patient: No - Discharge Referral Referred to [facility] Med P.C.: No
[2019-01-22] MEDS: SENNOSIDES 8.6MG TABLET (FP) PO SCH (21:08)
[2019-01-22] MEDS: AMITRIPTYLINE HCL 25 MG TABLET (FP) PO SCH (21:10)
--- NOTE | 2019-01-22 21:21 | PN ---
Progress Note (short form) - Note Progress Note: Better Legs remain week Mild serosang drainage Plan D/C planning
[2019-01-22] MEDS ORDERED: LIDOCAINE PATCH REMOVAL MC SCH (22:00)
[2019-01-23] MEDS ORDERED: HYDROmorphone HCL 2 MG TABLET ONE ×2 (02:43→05:31)
[2019-01-23] MEDS: BACLOFEN 10 MG TABLET (FP) PO SCH (05:47)
[2019-01-23] MEDS: oxyCODONE HCL 5 MG TABLET PO SCH ×2 (05:47→11:12)
[2019-01-23] MEDS: DOCUSATE SODIUM 100 MG CAPSULE (FP) PO SCH (05:48)
[2019-01-23] MEDS: CYCLOBENZAPRINE HCL 5 MG TABLET PO SCH (05:48)
[2019-01-23 08:06] LABS: HEMATOCRIT 30.1 % (32.4-45.2); HEMOGLOBIN 10.5 GM/dL (10.7-15.3); MCH 32.4 pg (25.7-33.7); MCHC 34.8 g/dl (32.0-36.0); MEAN CELL VOLUME 93.1 fl (80-96); MEAN PLT VOLUME 8.7 fl (7.5-11.1); PLATELET COUNT 243 K/MM3 (134-434); RBC 3.23 M/mm3 (3.60-5.2); WHITE BLOOD COUNT 5.7 K/mm3 (4.0-10.0)
[2019-01-23 08:29] LABS: ALBUMIN 2.8 g/dl (3.4-5.0); ALK PHOS 70 U/L (45-117); ANION GAP 6 MMOL/L (8-16); BILIRUBIN,TOTAL 0.3 mg/dL (0.2-1); BLOOD UREA NITROGEN 10 mg/dL (7-18); CALCIUM 8.4 mg/dL (8.5-10.1); CHLORIDE 108 mmol/L (98-107); CO2 30 mmol/L (21-32); CREATININE 0.4 mg/dL (0.55-1.3); GLUCOSE,RANDOM 78 mg/dL (74-106); MAGNESIUM 1.8 mg/dL (1.8-2.4); POTASSIUM 4.1 mmol/L (3.5-5.1); SGOT/AST 16 U/L (15-37); SGPT/ALT 18 U/L (13-61); SODIUM 144 mmol/L (136-145); TOT PROT 5.6 g/dl (6.4-8.2)
[2019-01-23] MEDS: PANTOPRAZOLE SODIUM 40 MG VIAL IVPUSH SCH (11:13)
[2019-01-23] MEDS: POLYETHYLENE GLYCOL 3350 119 GM BTL PO SCH (11:15)
[2019-01-23] MEDS: LIDOCAINE 5% TOPICAL PATCH TP SCH (11:15)
--- NOTE | 2019-01-23 12:01 | DS ---
Physical Exam: SUBJECTIVE: Patient seen and examined OBJECTIVE: Vital Signs Period Temp Pulse Resp BP Sys/Gallagher Pulse Ox Last 24 Hr 97.5 F-97.9 F 67-91 18-20 104-123/48-76 97 PHYSICAL EXAM GENERAL: The patient is awake, alert, and fully oriented, in no acute distress. HEAD: Normal with no signs of trauma. EYES: PERRL, extraocular movements intact, sclera anicteric, conjunctiva clear. ENT: Ears normal, nares patent, oropharynx clear without exudates, moist mucous membranes. NECK: Trachea midline, decreased ROM neck LUNGS: Breath sounds equal, clear to auscultation bilaterally, no wheezes, no crackles, no accessory muscle use. HEART: Regular rate and rhythm, S1, S2 without murmur, rub or gallop. ABDOMEN: Soft, nontender, nondistended, normoactive bowel sounds, no guarding, no rebound, no hepatosplenomegaly, no masses. EXTREMITIES: 2+ pulses, warm, well-perfused, no edema. NEUROLOGICAL: Normal speech, slow steady gait. Normal muscle strength BACK:clean dry dressing intact PSYCH: Normal mood, normal affect. SKIN: Warm, dry, normal turgor, no rashes or lesions noted. RIJ TLC removed and clean dry dressing applied. LABS Laboratory Results - last 24 hr 01/23/19 01/23/19 06:45 06:45 WBC 5.7 RBC 3.23 L Hgb 10.5 L Hct 30.1 L MCV 93.1 MCH 32.4 MCHC 34.8 RDW 14.0 Plt Count 243 MPV 8.7 Sodium 144 Potassium 4.1 Chloride 108 H Carbon Dioxide 30 Anion Gap 6 L BUN 10 Creatinine 0.4 L Creat Clearance w eGFR > 60 Random Glucose 78 Calcium 8.4 L Magnesium 1.8 Total Bilirubin 0.3 AST 16 ALT 18 Alkaline Phosphatase 70 Total Protein 5.6 L Albumin 2.8 L HOSPITAL COURSE: Date of Admission:01/17/19 Date of Discharge: 01/23/19 Minutes to complete discharge: 60 Discharge Summary Reason For Visit: LUMBAR SPINAL STENOSIS Current Active Problems Status post hardware removal (Acute) Procedures: Principal: 1. Removal of hardware. 2. Inspection of fusion mass. 3. I&D. Due to progressive lower extremity neurological decline Other Procedures: CXR 01/18/2019. A single AP view of the chest reveals no significant changes since the prior study of 01/17. Again noted is the evidence of previous spinal hardware insertion, midline reuben, RIJ, clear lungs and no sign an acute chest process. Hospital Course: 58 y/o F with PMHx of MS and multiple back surgeries presented to [facility] for elective Removal of hardware, inspection of fusion mass, and I&D thoracolumbar spine due to progressive lower extremity neurological decline. Patient had uneventful post-op course and had drain, guzman and central line removed in preparation for discharge home. She received Ancef x 2 doses post-op and maintained on dilaudid and oxycodone for pain control. Patient has been progressively ambulating as tolerated prior to discharge. She has passed flatus. Pt deemed stable for discharge home. She should follow up with Dr. Marina in 4 weeks as per his medical secretary. Condition: Stable - Instructions Diet, Activity, Other Instructions: You need to follow up with Dr. Morris. Activity Don't push, pull, bend, or twist for 2 week(s) after your surgery. Dont sit for more than 20 to 30 minutes at a time. And when you arent sitting , lie down or walk. Walk as much as you can. You can walk outside or inside. Going up and down stairs is also good for you, so do it as much as possible. Don t lift anything heavier than 10 pounds until your doctor says otherwise. Dont drive for 2 to 3 weeks after your surgery. And never drive if you are taking opioid pain medication. Let others drive you instead. And limit car trips to 20 to 30 minutes at a time. Have someone remove electrical cords, throw rugs, and anything else in your home that may cause you to fall. Arrange your household to keep the items you need handy. Home care Take your medicine exactly as directed by your doctor. Check your incision daily for redness, tenderness, or drainage. Dont soak in a bathtub, hot tub, or pool until your doctor says its OK. Wait 3 day(s) after your surgery to start showering. Then shower as needed. Carefully wash your incision with soap and water. Gently pat the incision dry. Dont rub it, or apply creams or lotions. Follow-up Make a follow-up appointment as directed by your doctor. Make an appointment to have sutures or reuben removed about 2 weeks after surgery. Call 911 right away if you have any of the following: Chest pain Shortness of breath A severe headache Trouble controlling your bowels or bladder Calf pain, swelling, or redness When to call your healthcare provider Call your healthcare provider right away if you have any of the following: Increased pain, redness, or drainage from the incision Fever of 100.4F (38C) or higher, or as directed by your healthcare provider Shaking chills New pain, weakness, warmth, or numbness in your legs Foot, ankle, or calf swelling that is not relieved by elevating your feet Referrals: Shayan Marina MD [Staff Physician] - Disposition: HOME - Home Medications Comprehensive Discharge Medication List: Ambulatory Orders Amitriptyline HCl [Elavil -] 50 mg PO HS 01/16/19 Lorazepam 2 mg PO Q4H 01/16/19 Oxycodone HCl 30 mg PO Q6H 01/16/19 Baclofen [Lioresal -] 10 mg PO TID tablet 01/23/19 Cyclobenzaprine HCl 5 mg PO TID tablet 01/23/19 Docusate Sodium [Colace -] 100 mg PO BID 30 Days #0 capsule 01/23/19 Lidocaine 5% Patch [Lidoderm -] 1 patch TP DAILY 30 Days #0 patch 01/23/19 Problem List - Problems (1) Status post hardware removal Code(s): Z98.890 - OTHER SPECIFIED POSTPROCEDURAL STATES (2) S/P hardware removal Code(s): Z98.890 - OTHER SPECIFIED POSTPROCEDURAL STATES This patient is new to me today: No Emergency Visit: No Critical Care patient: No - Discharge Referral Referred to [facility] Med P.C.: No
[2019-01-23 12:07] VITALS: BP 141/70; PULSE 61; TEMP 98.2
== END 2019-01-23 12:45 | disposition home or self-care (01) | DRG 30 ==
LOC: JSAMEDAYSX 07:54 → JICU 10:39 → J8W 01-21 20:10
PROVIDERS: ADMIT Orthopaedic Surgery Orthopaedic Surgery of the Spine; ATTEND Nurse Practitioner Family
PROC: 00JU0ZZ Inspection of Spinal Canal, Open Approach (ICD-10-PCS; 2019-01-17)
PROC: 0QB00ZZ Excision of Lumbar Vertebra, Open Approach (ICD-10-PCS; 2019-01-17)
PROC: 00PU0YZ Removal of Other Device from Spinal Canal, Open Approach (ICD-10-PCS; 2019-01-17)
PROC: 00BT0ZZ Excision of Spinal Meninges, Open Approach (ICD-10-PCS; 2019-01-17)
PROC: 009T0ZZ Drainage of Spinal Meninges, Open Approach (ICD-10-PCS; 2019-01-17)
PROC: 0PB40ZZ Excision of Thoracic Vertebra, Open Approach (ICD-10-PCS; principal; 2019-01-17 09:00)
DX: G57.83 Other specified mononeuropathies of bilateral lower limbs (principal); M48.05 Spinal stenosis, thoracolumbar region; G35 Multiple sclerosis; R29.818 Other symptoms and signs involving the nervous system; Z87.891 Personal history of nicotine dependence
CPT/HCPCS: 36415; 71045-TC-FY; 76000-TC-FY; 80048; 80053; 83735; 84100; 85025; 85027; 86850; 86900; 86901; 88300-TC; 94010; 97116-GP; 97162-GP; G0480; J0131; J0475

== ENCOUNTER 2019-03-04 14:54 | Inpatient (IN) | payer OTHER, MEDICARE ==
[2019-03-04 15:28] VITALS: BMI 26.6
--- NOTE | 2019-03-04 16:41 | PDOC ---
History of Present Illness - General Chief Complaint: Back Pain Stated Complaint: LOWER BACK PAIN Time Seen by Provider: 03/04/19 16:26 - History of Present Illness Initial Comments: 03/04/19 16:39 58-year-old female status post removal of hardware from thoracic to lumbar spine presents for evaluation of weakness and falling since surgery which was about a month ago. She states she's had progressive weakness over the last 1 week. Without systemic symptoms. Past History - Past Medical History Allergies/Adverse Reactions: Allergies Allergy/AdvReac Type Severity Reaction Status Date / Time latex Allergy "couldn't Verified 03/04/19 15:23 breathe" morphine Allergy "itching Verified 03/04/19 15:23 from inside out" Home Medications: Ambulatory Orders Amitriptyline HCl [Elavil -] 50 mg PO HS 01/16/19 Lorazepam 2 mg PO Q4H 01/16/19 Oxycodone HCl 60 mg PO Q6H 01/16/19 Baclofen [Lioresal -] 10 mg PO TID tablet 01/23/19 Cyclobenzaprine HCl 5 mg PO TID tablet 01/23/19 Docusate Sodium [Colace -] 100 mg PO BID 30 Days #0 capsule 01/23/19 HYDROmorphone [Dilaudid -] 8 mg PO Q6H 03/04/19 Anemia: No Asthma: No Cancer: No Cardiac Disorders: No CVA: No COPD: No CHF: No Dementia: No Diabetes: No GI Disorders: No Disorders: No HTN: No Hypercholesterolemia: No Liver Disease: No Seizures: No Thyroid Disease: No - Surgical History Appendectomy: Yes Neurologic Surgery: (back surgery- multiple) - Suicide/Smoking/Psychosocial Hx Smoking History: Unknown if ever smoked Have you smoked in the past 12 months: No If you are a former smoker, when did you quit?: 1yr Hx Alcohol Use: Yes (socially) Drug/Substance Use Hx: No Substance Use Type: Alcohol Hx Substance Use Treatment: No Review of Systems - Review of Systems Constitutional: No: Chills, Fever, Malaise, Night Sweats Musculoskeletal: Yes: Back Pain Neurological: Yes: See HPI, Weakness, Unsteady Gait *Physical Exam - Vital Signs Last Vital Signs Temp Pulse Resp BP Pulse Ox 98 F 92 H 22 H 100/50 L 96 03/04/19 15:25 03/04/19 15:25 03/04/19 15:25 03/04/19 15:25 03/04/19 15:25 - Physical Exam Comments: 03/04/19 16:40 There are sutures from the thoracic to lumbar spine in place the wound appears clean dry and intact with normal surrounding skin color and temperature. She has 5 out of 5 strength in the left lower extremity with 0 out of 5 strength in dorsiflexion 3 out of 5 and plantar flexion. Thighs and calves are soft and nontender. ED Treatment Course - RADIOLOGY Radiology Studies Ordered: Category Date Time Status CERVICAL SPINE MRI W&W/O CONTR [MRI] Stat MRI 03/04/19 16:37 Ordered LUMBAR SPINE MRI W&W/O CONTR [MRI] Stat MRI 03/04/19 16:37 Ordered THORACIC SPINE MRI W/O CONTR [MRI] Stat MRI 03/04/19 16:37 Ordered Medical Decision Making - Medical Decision Making 03/04/19 16:39 Spine surgery paged 03/04/19 16:41 This is a lady with progressive dropfoot after removal of hardware of the lumbar spine and thoracic spine. She does have hardware in her cervical spine. I have aged spine surgery for further evaluation and treatment options. I've also ordered MRIs as well as preliminary blood work. MRIs of the thoracic cervical and lumbar spine were ordered with and without contrast. 03/04/19 16:56 Discussed with Spine surgery JH w/o contrast ordered of the cervical, thorasic , and lumbar spine. Pt will be admitted to medicine and Ortho Spine will consult. *DC/Admit/Observation/Transfer Diagnosis at time of Disposition: Foot drop, right - Referrals Referrals: ON STAFF,NOT [Primary Care Provider] - - Patient Instructions - Post Discharge Activity
--- NOTE | 2019-03-04 19:35 | PDOC ---
*Physical Exam - Vital Signs Last Vital Signs Temp Pulse Resp BP Pulse Ox 98 F 92 H 22 H 100/50 L 96 03/04/19 15:25 03/04/19 15:25 03/04/19 15:25 03/04/19 15:25 03/04/19 15:25 ED Treatment Course - LABORATORY CBC & Chemistry Diagram: 03/04/19 19:30 03/04/19 20:09 Medical Decision Making - Medical Decision Making Pt transferred from . Presented with pain, new onset foot drop for past 1 week. Her hardware was removed 1 month ago. Sent by Dr. Marina for admission, MRI. Endorsed to hospitalist Dr. Hammer. *DC/Admit/Observation/Transfer Diagnosis at time of Disposition: Foot drop, right - Discharge Dispostion Condition at time of disposition: Stable Decision to Admit order: Yes - Referrals - Patient Instructions - Post Discharge Activity
--- NOTE | 2019-03-04 19:39 | PN ---
Teaching Attending Note Name of Resident: Humble Smith ATTENDING PHYSICIAN STATEMENT I saw and evaluated the patient. I reviewed the resident's note and discussed the case with the resident. I agree with the resident's findings and plan as documented. SUBJECTIVE: Patient is a 58 year old woman with PMH of Multiple Sclerosis, morphine allergy , lumbr spine stenosis and multiple back surgeries who presents with progressive foot drop, weakness and falling after removal of hardware of the lumbar spine and thoracic spine about 1 month ago. She does have hardware in her cervical spine. Her pain is mostly in the lumbosacral area and radiates anteriorly around her abdomen. Cannot identify any aggravating or relieving factors. Not on any medication for MS. Patient has constipation despite colace therapy. Denies fever, chills, blurry vision, photophobia, difficulty swallowing , dysuria, frequency or hematuria. OBJECTIVE: Alert and in pain Vital Signs Period Temp Pulse Resp BP Sys/Gallagher Pulse Ox Last 24 Hr 98 F 92 22 100/50 96 HEENT: No Jaundice, eye redness or discharge, PERRLA, EOMI. Normocephalic, atraumatic. External ears are normal and hearing is grossly intact. No nasal discharge. Neck: Supple, nontender. No palpable adenopathy or thyromegaly. No JVD Chest: Good effort. Clear to auscultation and percussion. Heart: Regular. No S3, rub or murmur Abdomen: Not distended, soft, nontender and no HSM. No rebound or guarding. Normal bowel sounds. Ext: Peripheral pulses intact. No leg edema. Skin: Warm and dry. No petechiae, rash or ecchymosis. Neuro: Alert. Oriented x3. CN 2-12 grossly intact. Severe pain is limiting her answers to the neurological exam. Unable to stand. Sensation grossly intact in all four extremities and DTR are symmetric. Right foot drop. Psych: Sad mood. Appropriate affect. Good insight. Home Medications Medication Instructions Recorded Amitriptyline HCl [Elavil -] 50 mg PO HS 01/16/19 Lorazepam 2 mg PO Q4H 01/16/19 Oxycodone HCl 60 mg PO Q6H 01/16/19 Baclofen [Lioresal -] 10 mg PO TID tablet 01/23/19 Cyclobenzaprine HCl 5 mg PO TID tablet 01/23/19 Docusate Sodium [Colace -] 100 mg PO BID 30 Days #0 capsule 01/23/19 HYDROmorphone [Dilaudid -] 8 mg PO Q6H 03/04/19 Current Medications Generic Name Dose Route Start Last Admin Trade Name Prosper PRN Reason Stop Dose Admin Amitriptyline HCl 50 mg 03/05/19 22:00 Elavil - PO HS [facility] Cyclobenzaprine HCl 5 mg 03/04/19 22:15 Cyclobenzaprine Hcl PO TID [facility] Hydromorphone HCl 8 mg 03/04/19 22:15 Dilaudid - PO Q6H [facility] Lactated Ringer's 1,000 mls @ 75 mls/hr 03/04/19 22:15 Lactated Ringers Solution IV ASDIR [facility] Non-Formulary Medication 2 mg 03/04/19 22:15 Lorazepam [Lorazepam] PO Q4H [facility] Non-Formulary Medication 30 mg 03/04/19 22:15 Oxycodone Hcl [Oxycodone Hcl] PO Q8H [facility] Polyethylene Glycol 17 gm 03/04/19 22:15 Miralax (For Daily Use) - PO BID [facility] Laboratory Results - last 24 hr 03/04/19 03/04/19 03/04/19 19:30 19:30 19:30 WBC 6.3 RBC 4.12 Hgb 12.3 Hct 38.1 D MCV 92.5 MCH 30.0 MCHC 32.4 RDW 13.9 Plt Count 277 MPV 8.7 Absolute Neuts (auto) 5.0 Neutrophils % 79.3 Lymphocytes % 15.9 D Monocytes % 4.3 D Eosinophils % 0.1 Basophils % 0.4 Nucleated RBC % 0 PT with INR 11.40 INR 0.97 Sodium Cancelled Potassium Cancelled Chloride Cancelled Carbon Dioxide Cancelled Anion Gap Cancelled BUN Cancelled Creatinine Cancelled Creat Clearance w eGFR Cancelled Random Glucose Cancelled Calcium Cancelled Phosphorus Magnesium Total Bilirubin Cancelled AST Cancelled ALT Cancelled Alkaline Phosphatase Cancelled Total Protein Cancelled Albumin Cancelled 03/04/19 20:09 WBC RBC Hgb Hct MCV MCH MCHC RDW Plt Count MPV Absolute Neuts (auto) Neutrophils % Lymphocytes % Monocytes % Eosinophils % Basophils % Nucleated RBC % PT with INR INR Sodium 138 Potassium 4.6 Chloride 100 Carbon Dioxide 32 Anion Gap 6 L BUN 12 Creatinine 0.5 L Creat Clearance w eGFR 127.63 Random Glucose 115 H Calcium 8.8 Phosphorus 4.4 Magnesium 1.8 Total Bilirubin 0.2 AST 10 L ALT 11 L Alkaline Phosphatase 109 Total Protein 7.1 Albumin 3.5 ASSESSMENT AND PLAN: 1. Weakness and right foot drop - While these may be related to her spine disease and surgical intervention, the side effects of the multiple medications she is getting may be a contributing factors to weakness/falling as well as hypotension. Neurosurgery consulted and she is scheduled for spine MRI. Will treat her with IV dilaudid, oxycodone, and elavil. Keep patient NPO and give IV fluids. Consult pain management, PT and ask neurology if MS flareup may be contributing to her presentation. Treat constipation with miralax bid and encourage liberal oral fluid intake. 2. DVT prophylaxis - Lovenox 40 mg SQ q 24 hours. 3. Advance directives - Full code
[2019-03-04 19:51] LABS: BASO % 0.4 % (0-2.0); EOS % 0.1 % (0-4.5); HEMATOCRIT 38.1 % (32.4-45.2); HEMOGLOBIN 12.3 GM/dL (10.7-15.3); LYMPH % 15.9 % (8-40); MCHC 32.4 g/dl (32.0-36.0); MEAN CELL VOLUME 92.5 fl (80-96); MEAN PLT VOLUME 8.7 fl (7.5-11.1); MONO % 4.3 % (3.8-10.2); NEUT % 79.3 % (42.8-82.8); PLATELET COUNT 277 K/MM3 (134-434); RBC 4.12 M/mm3 (3.60-5.2); RDW 13.9 % (11.6-15.6); WHITE BLOOD COUNT 6.3 K/mm3 (4.0-10.0)
[2019-03-04 20:08] LABS: INR 0.97 (0.83-1.09); PROTHROMBIN TIME (PATIENT) 11.4 SEC (9.7-13.0)
[2019-03-04] MEDS ORDERED: HYDROmorphone HCL CARPU-JECT 2 MG/1 ML DISP.SYRIN IVPUSH ONE (21:40)
[2019-03-04 21:51] LABS: ALBUMIN 3.5 g/dl (3.4-5.0); ALK PHOS 109 U/L (45-117); ANION GAP 6 MMOL/L (8-16); BILIRUBIN,TOTAL 0.2 mg/dL (0.2-1); BLOOD UREA NITROGEN 12 mg/dL (7-18); CALCIUM 8.8 mg/dL (8.5-10.1); CHLORIDE 100 mmol/L (98-107); CO2 32 mmol/L (21-32); CREATININE 0.5 mg/dL (0.55-1.3); GLUCOSE,RANDOM 115 mg/dL (74-106); POTASSIUM 4.6 mmol/L (3.5-5.1); SGOT/AST 10 U/L (15-37); SGPT/ALT 11 U/L (13-61); SODIUM 138 mmol/L (136-145); TOT PROT 7.1 g/dl (6.4-8.2)
[2019-03-04] MEDS ORDERED: HYDROmorphone HCl 2 MG/ML VIAL ONE (22:09)
[2019-03-04] MEDS ORDERED: LACTATED RINGERS SOLUTION 1,000 ML IV SCH (22:15)
--- NOTE | 2019-03-04 22:25 | HP ---
CHIEF COMPLAINT: progressive LE weakness and back pain PCP: HISTORY OF PRESENT ILLNESS: Patient is a 58 y/o F w/ PMHx untreated MS, lumbar stenosis, s/p reported 33 spinal surgeries over 26 years with extensive hardware placement. Most recent surgery was thoracic/lumbar hardware removal in Dec 2018 for pain relief. Since that time Pt has experienced progressive LE weakness L>R progressing to inability to ambulate, progression of lumbar pain, and multiple falls. Most recent known MS exacerbation was in 2015; Pt refuses disease-modifying therapy stating she wishes only to be treated symptomatically for exacerbations, also has not been under regular neurological care for several years. At time of evaluation c/o lumbar pain radiating circumferentially around abdomen, coming in waves, 10/10 at greatest severity, a/w muscle spasms. ER course was notable for: (1) Tachycardic, tachypneic, low/normotensive BP on presentation (2) labs wnl (3) Dr. Marina aware Recent Travel: PAST MEDICAL HISTORY: As per HPI PAST SURGICAL HISTORY: As per HPI Social History: Smoking: Alcohol: Drugs: Family History: Allergies latex Allergy (Verified 03/04/19 15:23) "couldn't breathe" morphine Allergy (Verified 03/04/19 15:23) "itching from inside out" HOME MEDICATIONS: Home Medications Medication Instructions Recorded Amitriptyline HCl [Elavil -] 50 mg PO HS 01/16/19 Lorazepam 2 mg PO Q4H 01/16/19 Oxycodone HCl 30 mg PO Q8H 01/16/19 Cyclobenzaprine HCl 5 mg PO TID tablet 01/23/19 Docusate Sodium [Colace -] 100 mg PO BID 30 Days #0 capsule 01/23/19 HYDROmorphone [Dilaudid -] 8 mg PO Q6H 03/04/19 REVIEW OF SYSTEMS As per HPI PHYSICAL EXAMINATION Vital Signs - 24 hr 03/04/19 15:25 Temperature 98 F Pulse Rate 92 H Respiratory 22 H Rate Blood Pressure 100/50 L O2 Sat by Pulse 96 Oximetry (%) GENERAL: A&Ox3, in significant distress HEENT: NC/AT, EOMI, PERRLA, MMM NECK: Normal range of motion, supple without lymphadenopathy, JVD, or masses. LUNGS: CTA b/l HEART: borderline tachycardic no m/r/g ABDOMEN: +bs, soft, NT, ND MUSCULOSKELETAL: Profoundly and diffusely reduced ROM 2/2 pain and weakness EXTREMITIES: 2+ pulses, warm, well-perfused. No calf tenderness. No peripheral edema. 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 neurologic weakness, spasticity may be present but could not be assessed d/t pain; reduced sensation in LLE PSYCHIATRIC: Cooperative. Good eye contact. Appropriate mood and affect. SKIN: Warm, dry, normal turgor, no rashes or lesions noted, normal capillary refill. Laboratory Results - last 24 hr 03/04/19 03/04/19 03/04/19 19:30 19:30 19:30 WBC 6.3 RBC 4.12 Hgb 12.3 Hct 38.1 D MCV 92.5 MCH 30.0 MCHC 32.4 RDW 13.9 Plt Count 277 MPV 8.7 Absolute Neuts (auto) 5.0 Neutrophils % 79.3 Lymphocytes % 15.9 D Monocytes % 4.3 D Eosinophils % 0.1 Basophils % 0.4 Nucleated RBC % 0 PT with INR 11.40 INR 0.97 Sodium Cancelled Potassium Cancelled Chloride Cancelled Carbon Dioxide Cancelled Anion Gap Cancelled BUN Cancelled Creatinine Cancelled Creat Clearance w eGFR Cancelled Random Glucose Cancelled Calcium Cancelled Total Bilirubin Cancelled AST Cancelled ALT Cancelled Alkaline Phosphatase Cancelled Total Protein Cancelled Albumin Cancelled 03/04/19 20:09 WBC RBC Hgb Hct MCV MCH MCHC RDW Plt Count MPV Absolute Neuts (auto) Neutrophils % Lymphocytes % Monocytes % Eosinophils % Basophils % Nucleated RBC % PT with INR INR Sodium 138 Potassium 4.6 Chloride 100 Carbon Dioxide 32 Anion Gap 6 L BUN 12 Creatinine 0.5 L Creat Clearance w eGFR 127.63 Random Glucose 115 H Calcium 8.8 Total Bilirubin 0.2 AST 10 L ALT 11 L Alkaline Phosphatase 109 Total Protein 7.1 Albumin 3.5 ASSESSMENT/PLAN: 58 y/o F w/ PMHx untreated MS, lumbar stenosis, s/p reported 33 spinal surgeries over 26 years with extensive hardware placement, s/p thoracolumbar hardware removed in Dec 2018 for pain relief, p/w progressive LE weakness L>R progressing to inability to ambulate and progressive intractable pain. -NeuroSx consulted, Dr. Mraina aware -neurology consulted -pain management consulted -c-/t-/l-spine MRI pending -symptoms may be partly explained by non-treatment of MS or transition to secondary progressive MS -home pain meds confirmed with pharmacy and restarted -Miralax BID for constipation non-responsive to senna/colace -orthostatic vitals as Pt can tolerate -NPO after midnight -LR @ 75 -monitor and replete electrolytes Visit type - Emergency Visit Emergency Visit: Yes ED Registration Date: 03/04/19 Care time: The patient presented to the Emergency Department on the above date and was hospitalized for further evaluation of their emergent condition. - New Patient This patient is new to me today: Yes Date on this admission: 03/04/19 - Critical Care Critical Care patient: No
[2019-03-04 22:43] LABS: MAGNESIUM 1.8 mg/dL (1.8-2.4); PHOSPHOROUS 4.4 mg/dL (2.5-4.9)
[2019-03-04] MEDS ORDERED: CYCLOBENZAPRINE HCL 10 MG TABLET (FP) ONE (23:43)
[2019-03-04] MEDS ORDERED: oxyCODONE HCL 5 MG TABLET ONE (23:46)
[2019-03-04] MEDS: oxyCODONE HCL 5 MG TABLET PO SCH (23:51)
[2019-03-04] MEDS: POLYETHYLENE GLYCOL 3350 119 GM BTL PO SCH (23:51)
[2019-03-04] MEDS: CYCLOBENZAPRINE HCL 5 MG TABLET PO SCH (23:51)
[2019-03-05] MEDS ORDERED: HYDROmorphone HCL 2 MG TABLET ONE (02:33)
[2019-03-05] MEDS ORDERED: LORazepam 0.5 MG TABLET ONE (02:34)
[2019-03-05] MEDS: LORazepam 1 MG TABLET PO SCH ×5 (02:41→21:11)
[2019-03-05] MEDS: CYCLOBENZAPRINE HCL 5 MG TABLET PO SCH (06:10)
[2019-03-05] MEDS: oxyCODONE HCL 5 MG TABLET PO SCH (06:12)
[2019-03-05 07:53] LABS: BASO % 0.5 % (0-2.0); EOS % 2.9 % (0-4.5); HEMATOCRIT 36.2 % (32.4-45.2); HEMOGLOBIN 11.9 GM/dL (10.7-15.3); MCH 30.1 pg (25.7-33.7); MCHC 32.9 g/dl (32.0-36.0); MEAN CELL VOLUME 91.5 fl (80-96); MEAN PLT VOLUME 8.2 fl (7.5-11.1); MONO % 7.3 % (3.8-10.2); NEUT % 48.3 % (42.8-82.8); PLATELET COUNT 274 K/MM3 (134-434); RBC 3.96 M/mm3 (3.60-5.2); RDW 13.5 % (11.6-15.6)
[2019-03-05 08:21] LABS: ANION GAP 5 MMOL/L (8-16); BLOOD UREA NITROGEN 9 mg/dL (7-18); CALCIUM 9.1 mg/dL (8.5-10.1); CHLORIDE 102 mmol/L (98-107); CO2 33 mmol/L (21-32); CREATININE 0.4 mg/dL (0.55-1.3); GLUCOSE,RANDOM 86 mg/dL (74-106); MAGNESIUM 1.8 mg/dL (1.8-2.4); POTASSIUM 3.9 mmol/L (3.5-5.1); SODIUM 140 mmol/L (136-145)
--- NOTE | 2019-03-05 08:52 | CON.NEURO ---
Consult - Past Medical History ...: No - Alcohol/Substance Use Hx Alcohol Use: Yes (socially) - Smoking History Smoking history: Never smoked Have you smoked in the past 12 months: No If you are a former smoker, when did you quit?: 1yr Home Medications - Allergies Allergies/Adverse Reactions: Allergies Allergy/AdvReac Type Severity Reaction Status Date / Time latex Allergy "couldn't Verified 03/04/19 15:23 breathe" morphine Allergy "itching Verified 03/04/19 15:23 from inside out" - Home Medications Home Medications: Ambulatory Orders Amitriptyline HCl [Elavil -] 50 mg PO HS 01/16/19 Lorazepam 2 mg PO Q4H 01/16/19 Oxycodone HCl 30 mg PO Q8H 01/16/19 Cyclobenzaprine HCl 5 mg PO TID tablet 01/23/19 Docusate Sodium [Colace -] 100 mg PO BID 30 Days #0 capsule 01/23/19 HYDROmorphone [Dilaudid -] 8 mg PO Q6H 03/04/19 Duloxetine HCl [Cymbalta -] 20 mg PO DAILY 03/05/19 Physical Exam-Neuro Vital Signs: Vital Signs Temperature 97.8 F 03/05/19 04:17 Pulse Rate 70 03/05/19 04:17 Respiratory Rate 18 03/05/19 04:17 Blood Pressure 151/86 03/05/19 04:17 O2 Sat by Pulse Oximetry (%) 99 03/05/19 04:17 Labs: CBC, BMP 03/05/19 07:20 03/05/19 07:20 INR, PTT INR 0.97 (0.83-1.09) 03/04/19 19:30 Assessment/Plan cc Lower extremity weakness, sensory loss and incontinence HPI 58 year old female history of MS( Patient did not wish to be treated with Disease modifying agents in past ), She had total of 33 spinal surgery. Recently one month ago she has hardward removed at [facility]. Andre was feeling better and able to walk with walker at home For past one week, she is in much worse pain and difficulty walking. She did have one episode of urinary urgency last night and sensory loss ( ? old) .Patient is schedule for mri of C/T/L spine with contrast and it is pending. She describes pain as muscle spasm and electric shock like sensation. PMH as above Allergies latex Allergy (Verified 03/04/19 15:23) "couldn't breathe" morphine Allergy (Verified 03/04/19 15:23) "itching from inside out" HOME MEDICATIONS: Home Medications Medication Instructions Recorded Amitriptyline HCl [Elavil -] 50 mg PO HS 01/16/19 Lorazepam 2 mg PO Q4H 01/16/19 Oxycodone HCl 30 mg PO Q8H 01/16/19 Cyclobenzaprine HCl 5 mg PO TID tablet 01/23/19 Docusate Sodium [Colace -] 100 mg PO BID 30 Days #0 capsule 01/23/19 HYDROmorphone [Dilaudid -] 8 mg PO Q6H 03/04/19 REVIEW OF SYSTEMS reviewed in chart FH,SH, reviewed in chart NEUROLOGICAL EXAMINATION Alert oriented x 3 CN all intact Right arm is grade 4+ and relfex are normal in upper extremity sensation is normal in upper extremity there is diminished sensation to pinprick upto t4 bilaterally reflex are present in lower extremity planter is extensory there is grade 5- hip extensor knee flexion and dorsiflexion there is grade 4- and difficulty to check rest of muscle strength due to severe pain patient refused rectal exam MRI of whole spine is pending Assessment. 1 History of MS, not an active issue and would need mri ofbrain and previous records, We can discuss as outpatient, no urgency to consider disease modying agent 2. 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 Thanking you so much Manny Leblanc MD
[2019-03-05] MEDS ORDERED: DEXAMETHASONE SOD PHOSPHATE 4 MG/1 ML VIAL IVPUSH ONE (09:15)
[2019-03-05] MEDS: POLYETHYLENE GLYCOL 3350 119 GM BTL PO SCH ×2 (10:20→21:12)
[2019-03-05] MEDS: DULoxetine HCL 20 MG CAPSULE.DR (FP) PO SCH (10:20)
[2019-03-05] MEDS ORDERED: oxyCODONE HCL 5 MG TABLET PO PRN (11:34)
[2019-03-05] MEDS: CYCLOBENZAPRINE HCL 10 MG TABLET (FP) PO SCH ×2 (13:54→21:11)
--- NOTE | 2019-03-05 14:29 | EKG ---
Test Reason : Blood Pressure : / mmHG Vent. Rate : 087 BPM Atrial Rate : 087 BPM P-R Int : 134 ms QRS Dur : 092 ms QT Int : 360 ms P-R-T Axes : 081 077 052 degrees QTc Int : 433 ms NORMAL SINUS RHYTHM POSSIBLE LEFT ATRIAL ENLARGEMENT BORDERLINE ECG NO PREVIOUS ECGS AVAILABLE Confirmed by MD Morgan, Josemanuel ([id number]) on 03/05/2019 2:29:14 PM Referred By: Confirmed By:Josemanuel Mora MD
--- NOTE | 2019-03-05 16:24 | PN ---
Teaching Attending Note Name of Resident: Jennie Conrad ATTENDING PHYSICIAN STATEMENT I saw and evaluated the patient. I reviewed the resident's note and discussed the case with the resident. I agree with the resident's findings and plan as documented. SUBJECTIVE: No fever or chills. reports urinary incontinence since her sx on 01/17 . gait is unsteady. decreased sensation in LE R > L . lower back pain OBJECTIVE: NAD CV: RRR, no MRG Lungs: CTAB Ext: no edema . erythema and varicose veins on L lower leg ( chronic per patient ) Neuro exam: declined due to difficulty moving in bed. allowed feet exam. R foot drop. absent sensation to light touch in R foot and leg. nl sensation in L leg. R ankle dorsiflexion 01/01. b/l + babibski's . back with stitches along a midline well healed wound ASSESSMENT AND PLAN: 58 y/o lady with h/o MS, and spinal stenosis with repeated sx on her back who presented with lower back pain, difficulty walking, and R foot drop 1- Back pain and foot drop with urinary incontinence: chronic , incontinence and foot drop date back to Dec after last procedure. - MRI of spine pending - received a dose of decadron - will give ativan before and during procedure as per patient request. - cont oxycodone 30 q8h and dilaudid 8 mg q8h PRn and flexeril. patient was l- Stopped Reference #: [id number] - appreciate dr. Leblanc input, o suspicion for MS flare - neuro sx eval pending . - start bowel regimen - has stitches over mid line surgical scar form December. to be addressed by Sx . - pain management consult - start heparin sq, can stop before sx when planned
[2019-03-05] MEDS ORDERED: ACETAMINOPHEN 325 MG TABLET (FP) PO PRN (16:47)
--- NOTE | 2019-03-05 18:21 | PN ---
Physical Exam: SUBJECTIVE: Patient seen and examined at bedside this morning. Patient is a 58 year old female with past medical history of untreated MS, lumbar stenosis, s/p reported 33 spinal surgeries, presented to the ED due to intractable back pain, with progressive LE weakness and inability to ambulate. Patient also reports urinary incontinence since her surgery in Dec. She denies any fever, chills, headache, dizziness, chest pain, SOB, abdominal pain, diarrhea. OBJECTIVE: Vital Signs Temperature 97.8 F 03/05/19 04:17 Pulse Rate 76 03/05/19 10:00 Respiratory Rate 18 03/05/19 10:00 Blood Pressure 138/58 L 03/05/19 10:00 O2 Sat by Pulse Oximetry (%) 99 03/05/19 04:17 GENERAL: The patient is awake, alert, and fully oriented, in no acute distress. HEAD: Normal with no signs of trauma. EYES: PERRLA, EOMI, sclera anicteric, conjunctiva clear. NECK: Trachea midline, full range of motion, supple. LUNGS: Breath sounds equal, clear to auscultation bilaterally. HEART: Regular rate and rhythm, S1, S2 without murmur, rub or gallop. ABDOMEN: Soft, nontender, nondistended, normoactive bowel sounds. EXTREMITIES: 2+ pulses, warm, well-perfused, no edema. NEUROLOGICAL: Cranial nerves II through XII grossly intact. Normal speech, gait not observed. Decreased sensation of b/l LE worse on the right, Motor strength 3 /5 RLE/LLE and 4/5 RUE/LUE. Right foot drop, DTRs +2, +Babinski PSYCH: Normal mood, normal affect. SKIN: Warm, dry, normal turgor, no rashes or lesions noted Laboratory Results - last 24 hr 03/04/19 03/04/19 03/04/19 19:30 19:30 19:30 WBC 6.3 RBC 4.12 Hgb 12.3 Hct 38.1 D MCV 92.5 MCH 30.0 MCHC 32.4 RDW 13.9 Plt Count 277 MPV 8.7 Absolute Neuts (auto) 5.0 Neutrophils % 79.3 Lymphocytes % 15.9 D Monocytes % 4.3 D Eosinophils % 0.1 Basophils % 0.4 Nucleated RBC % 0 PT with INR 11.40 INR 0.97 Sodium Cancelled Potassium Cancelled Chloride Cancelled Carbon Dioxide Cancelled Anion Gap Cancelled BUN Cancelled Creatinine Cancelled Creat Clearance w eGFR Cancelled Random Glucose Cancelled Calcium Cancelled Phosphorus Magnesium Total Bilirubin Cancelled AST Cancelled ALT Cancelled Alkaline Phosphatase Cancelled Total Protein Cancelled Albumin Cancelled Blood Type Antibody Screen 03/04/19 03/05/19 03/05/19 20:09 07:20 07:20 WBC 7.0 RBC 3.96 Hgb 11.9 Hct 36.2 MCV 91.5 MCH 30.1 MCHC 32.9 RDW 13.5 Plt Count 274 MPV 8.2 Absolute Neuts (auto) 3.4 Neutrophils % 48.3 D Lymphocytes % 41.0 H D Monocytes % 7.3 Eosinophils % 2.9 D Basophils % 0.5 Nucleated RBC % 0 PT with INR INR Sodium 138 140 Potassium 4.6 3.9 Chloride 100 102 Carbon Dioxide 32 33 H Anion Gap 6 L 5 L BUN 12 9 Creatinine 0.5 L 0.4 L Creat Clearance w eGFR 127.63 165.11 Random Glucose 115 H 86 Calcium 8.8 9.1 Phosphorus 4.4 4.0 Magnesium 1.8 1.8 Total Bilirubin 0.2 AST 10 L ALT 11 L Alkaline Phosphatase 109 Total Protein 7.1 Albumin 3.5 Blood Type Antibody Screen 03/05/19 09:10 WBC RBC Hgb Hct MCV MCH MCHC RDW Plt Count MPV Absolute Neuts (auto) Neutrophils % Lymphocytes % Monocytes % Eosinophils % Basophils % Nucleated RBC % PT with INR INR Sodium Potassium Chloride Carbon Dioxide Anion Gap BUN Creatinine Creat Clearance w eGFR Random Glucose Calcium Phosphorus Magnesium Total Bilirubin AST ALT Alkaline Phosphatase Total Protein Albumin Blood Type A POSITIVE Antibody Screen Negative Active Medications Generic Name Dose Route Start Last Admin Trade Name Freq PRN Reason Stop Dose Admin Acetaminophen 650 mg 03/05/19 16:47 Tylenol - PO Q6H PRN FEVER Amitriptyline HCl 50 mg 03/05/19 22:00 Elavil - PO HS ARNIE Cyclobenzaprine HCl 10 mg 03/05/19 11:36 03/05/19 13:54 Flexeril - PO 10 mg TID ARNIE Administration Duloxetine HCl 20 mg 03/05/19 10:00 03/05/19 10:20 Cymbalta - PO 20 mg DAILY ARNIE Administration Heparin Sodium (Porcine) 5,000 unit 03/05/19 22:00 Heparin - SQ TID ARNIE Hydromorphone HCl 8 mg 03/05/19 12:16 03/05/19 17:04 Dilaudid - PO 8 mg Q4H PRN Administration PAIN LEVEL 7-10 Lorazepam 2 mg 03/05/19 14:00 03/05/19 13:53 Ativan - PO 2 mg TID ARNIE Administration Lorazepam 1 mg 03/05/19 16:44 Ativan Injection - IVPUSH 03/05/19 16:45 ONCE ONE Lorazepam 1 mg 03/05/19 17:09 Ativan Injection - IVPUSH 03/05/19 17:10 ONCE ONE Oxycodone HCl 30 mg 03/05/19 15:12 Roxicodone - PO Q8H PRN PAIN LEVEL 4-6 Polyethylene Glycol 17 gm 03/04/19 22:15 03/05/19 10:20 Miralax (For Daily Use) - PO 17 gm BID ARNIE Administration Senna/Docusate Sodium 1 tablet 03/05/19 22:00 Pericolace - PO BID ARNIE ASSESSMENT/PLAN: Patient is a 58 year old female with past medical history of untreated MS, lumbar stenosis, s/p reported 33 spinal surgeries, presented to the ED due to intractable back pain, with progressive LE weakness and inability to ambulate. #Worsening low back pain and weakness -MRI of the cervical, thoracic and lumbar spine pending. -Ativan ordered as per patient request, will be given prior to MRI -Ortho consulted (Dr. Marina) . Awaiting call back. -Pain management (Dr. Morris) consulted. -Neurology (Dr. Leblanc) consulted. Recommendations appreciated. -Unlikely active MS, no urgency to consider disease modifying agent, to follow up as outpatient -will give 1 dose of steroid 6mg IV while MRI pending -Will continue home medications for pain: Oxycodone 30mg q8, Dilaudid 8mg q8 PRN and flexeril -Miralax for constipation #FEN -Not on any standing fluids -Electrolytes wnl -Regular diet #Prophylaxis -Heparin 5000 units sq tid #Disposition -full code -med surg Visit type - Emergency Visit Emergency Visit: Yes ED Registration Date: 03/04/19 Care time: The patient presented to the Emergency Department on the above date and was hospitalized for further evaluation of their emergent condition. - New Patient This patient is new to me today: Yes Date on this admission: 03/05/19 - Critical Care Critical Care patient: No
--- NOTE | 2019-03-05 20:19 | PN ---
Progress Note (short form) - Note Progress Note: Patient well known to me. Problem recent removal of hardware TL spine . Uneventful recovery except for LE weakness Recurrent falls One fall approx 2weeks ago required her being picked up by fire department called to her home to help her up. Vigorous attempts to pick her up resulted in a loud crack sound followed by increased pain and LE weakness. 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 O/E Paraparetic with L LE sensory and motor findings L> R ASSESS Spinal fracture with epidural hematoma. Brought back to the hospital for pain mx Full neural axis Spine MRI will need sedation for this possible GA If connot be done to transfer to JAD[facility] Lagunas at [facility] neuroradiology for this procedure. This will be arranged if necessary. PLAN To contact neuroradiology tomorrow Pain management
[2019-03-05] MEDS: SENNOSIDES/DOCUSATE COMBO (SENNA PLUS) TABLET (UD) PO SCH (21:11)
[2019-03-05] MEDS: AMITRIPTYLINE HCL 25 MG TABLET (FP) PO SCH (21:11)
[2019-03-05] MEDS: HEPARIN NA (PORCINE) 5,000 UNITS/ML 1ML VIAL SQ SCH (21:12)
[2019-03-05] MEDS: ZOLPIDEM TARTRATE 5 MG TABLET PO PRN (21:26)
[2019-03-06] MEDS: HEPARIN NA (PORCINE) 5,000 UNITS/ML 1ML VIAL SQ SCH ×5 (06:05→23:00)
[2019-03-06] MEDS: LORazepam 1 MG TABLET PO SCH ×3 (06:05→23:00)
[2019-03-06] MEDS: CYCLOBENZAPRINE HCL 10 MG TABLET (FP) PO SCH ×3 (06:05→23:00)
[2019-03-06] MEDS ORDERED: PT OWN MED DRAWER 7, Y5N ONE ×2 (06:21→23:28)
--- NOTE | 2019-03-06 08:42 | PN ---
Progress Note (short form) - Note Progress Note: Lower extremity weakness, sensory loss and incontinence for seven days prior to hospital admission 58 year old female history of MS( Patient did not wish to be treated with Disease modifying agents in past ), She had total of 33 spinal surgery. Recently one month ago she has hardware removed at [facility]. Andre was feeling better and able to walk with walker at home For past one week, she is in much worse pain and difficulty walking. She did have one episode of urinary urgency last night and sensory loss ( ? old). She describes pain as muscle spasm and electric shock like sensation. she was given one dose of steroid and waiting for mri of whole spine. If cant be done at [facility], would be schedule at [facility]. NEUROLOGICAL EXAMINATION Alert oriented x 3 CN all intact Right upper extremity is weak is grade 4+ and Left upper extremity strength is grade 5 relfex are normal in upper extremity sensation is normal in upper extremity there is diminished sensation to pinprick upto t4 bilaterally Right more than left reflex are present in lower extremity, planter is extensor there is grade 5- hip extensor knee flexion and Right dorsiflexion is weak and there is foot drop ( old right foot drop ) patient refused rectal exam MRI of whole spine is pending Assessment. 1 History of MS, not an active issue , can be address outpatient . 2. Worsenign of lower back pain and weakness, sensory exam ( could be old findings and so does right upper extremity weakness ) as she has multiple surgery in past, there is evidence of myelopathy( platner extensor) I agree with mri of whole spine, orthopedic surgery referral one dose of dexamethasone 6 mg iv once, while she is waiting for mri fo Spine - Thanking you so much Manny Leblanc MD
--- NOTE | 2019-03-06 09:22 | PN ---
Teaching Attending Note Name of Resident: Jennie Conrad ATTENDING PHYSICIAN STATEMENT I saw and evaluated the patient. I reviewed the resident's note and discussed the case with the resident. I agree with the resident's findings and plan as documented. SUBJECTIVE: Patient is tearful , in severe low back pain c/o having severe spasm. OBJECTIVE: Vital Signs Temperature 98.0 F 03/06/19 05:29 Pulse Rate 73 03/06/19 05:29 Respiratory Rate 20 03/06/19 05:29 Blood Pressure 125/72 03/06/19 05:29 O2 Sat by Pulse Oximetry (%) 98 03/05/19 21:00 PE is deferred since has a severe back pain with spasm. Neuro exam: sitting on the chair with severe pain , with low back spasm. rest of exam per 's . CBCD WBC 7.0 K/mm3 (4.0-10.0) 03/05/19 07:20 RBC 3.96 M/mm3 (3.60-5.2) 03/05/19 07:20 Hgb 11.9 GM/dL (10.7-15.3) 03/05/19 07:20 Hct 36.2 % (32.4-45.2) 03/05/19 07:20 MCV 91.5 fl (80-96) 03/05/19 07:20 MCHC 32.9 g/dl (32.0-36.0) 03/05/19 07:20 RDW 13.5 % (11.6-15.6) 03/05/19 07:20 Plt Count 274 K/MM3 (134-434) 03/05/19 07:20 MPV 8.2 fl (7.5-11.1) 03/05/19 07:20 CMP Sodium 140 mmol/L (136-145) 03/05/19 07:20 Potassium 3.9 mmol/L (3.5-5.1) 03/05/19 07:20 Chloride 102 mmol/L (98-107) 03/05/19 07:20 Carbon Dioxide 33 mmol/L (21-32) H 03/05/19 07:20 Anion Gap 5 MMOL/L (8-16) L 03/05/19 07:20 BUN 9 mg/dL (7-18) 03/05/19 07:20 Creatinine 0.4 mg/dL (0.55-1.3) L 03/05/19 07:20 Creat Clearance w eGFR 165.11 (>60) 03/05/19 07:20 Random Glucose 86 mg/dL (74-106) 03/05/19 07:20 Calcium 9.1 mg/dL (8.5-10.1) 03/05/19 07:20 Total Bilirubin 0.2 mg/dL (0.2-1) 03/04/19 20:09 AST 10 U/L (15-37) L 03/04/19 20:09 ALT 11 U/L (13-61) L 03/04/19 20:09 Alkaline Phosphatase 109 U/L (45-117) 03/04/19 20:09 Total Protein 7.1 g/dl (6.4-8.2) 03/04/19 20:09 Albumin 3.5 g/dl (3.4-5.0) 03/04/19 20:09 Current Medications Generic Name Dose Route Start Last Admin Trade Name Freq PRN Reason Stop Dose Admin Acetaminophen 650 mg 03/05/19 16:47 Tylenol - PO Q6H PRN FEVER Amitriptyline HCl 50 mg 03/05/19 22:00 03/05/19 21:11 Elavil - PO 50 mg HS ARNIE Administration Cyclobenzaprine HCl 10 mg 03/05/19 11:36 03/06/19 06:05 Flexeril - PO 10 mg TID ARNIE Administration Dexamethasone Sodium Phosphate 6 mg 03/06/19 08:42 Decadron Injection - IVPB 03/06/19 08:43 ONCE ONE Duloxetine HCl 20 mg 03/05/19 10:00 03/05/19 10:20 Cymbalta - PO 20 mg DAILY ARNIE Administration Heparin Sodium (Porcine) 5,000 unit 03/05/19 22:00 03/06/19 06:05 Heparin - SQ 5,000 unit TID ARNIE Administration Hydromorphone HCl 8 mg 03/05/19 12:16 03/05/19 17:04 Dilaudid - PO 8 mg Q4H PRN Administration PAIN LEVEL 7-10 Lorazepam 2 mg 03/05/19 14:00 03/06/19 06:05 Ativan - PO 2 mg TID ARNIE Administration Lorazepam 1 mg 03/05/19 16:44 Ativan Injection - IVPUSH 03/05/19 16:45 ONCE ONE Lorazepam 1 mg 03/05/19 17:09 Ativan Injection - IVPUSH 03/05/19 17:10 ONCE ONE Oxycodone HCl 30 mg 03/05/19 15:12 Roxicodone - PO Q8H PRN PAIN LEVEL 4-6 Polyethylene Glycol 17 gm 03/04/19 22:15 03/05/19 21:12 Miralax (For Daily Use) - PO 17 gm BID ARNIE Administration Senna/Docusate Sodium 1 tablet 03/05/19 22:00 03/05/19 21:11 Pericolace - PO 1 tablet BID ARNIE Administration Zolpidem Tartrate 10 mg 03/05/19 20:20 03/05/19 21:26 Ambien - PO 03/06/19 20:19 10 mg HS PRN Administration INSOMNIA Home Medications Medication Instructions Recorded Amitriptyline HCl [Elavil -] 50 mg PO HS 01/16/19 Lorazepam 2 mg PO Q4H 01/16/19 Oxycodone HCl 30 mg PO Q8H 01/16/19 Cyclobenzaprine HCl 5 mg PO TID tablet 01/23/19 Docusate Sodium [Colace -] 100 mg PO BID 30 Days #0 capsule 01/23/19 HYDROmorphone [Dilaudid -] 8 mg PO Q6H 03/04/19 Cyclobenzaprine HCl 1 tab PO TID 03/05/19 Duloxetine HCl [Cymbalta -] 20 mg PO DAILY 03/05/19 Oxycodone HCl/Acetaminophen 1 tab PO Q6H PRN 03/05/19 [Percocet 10-325 mg Tablet] ASSESSMENT AND PLAN: Patient is a 58yo female with PMHx of MS, and spinal stenosis with multiple low back surgeries as per patient around 35 , presented with lower back pain, difficulty walking, and R foot drop # Severe Back pain spasm and foot drop with urinary incontinence: added one time dose benadryl and valium for spasm. chronic , incontinence and foot drop date back to Dec after last procedure. - MRI of spine arrangements as per Dr. Marina. s/p decadron x 1. On multiple pain medications for pain will get pain management MD get involved. - I- Stopped Reference #: [id number] - appreciate dr. Leblanc input, suspicion for MS flare , on Bowel regimen continue , increased the doses of the regimen since still constipated. - has stitches over mid line surgical scar form December. to be addressed by Sx . - pain management consult appreciated - start heparin sq, can stop before sx when planned
[2019-03-06] MEDS ORDERED: DEXAMETHASONE SOD PHOSPHATE 4 MG/1 ML VIAL IVPB ONE (09:30)
[2019-03-06] MEDS: DULoxetine HCL 20 MG CAPSULE.DR (FP) PO SCH (09:48)
[2019-03-06] MEDS: SENNOSIDES/DOCUSATE COMBO (SENNA PLUS) TABLET (UD) PO SCH ×3 (09:48→23:00)
[2019-03-06] MEDS: POLYETHYLENE GLYCOL 3350 119 GM BTL PO SCH ×2 (09:49→23:00)
[2019-03-06] MEDS: oxyCODONE HCL 5 MG TABLET PO PRN ×2 (11:10→19:40)
[2019-03-06] MEDS ORDERED: diazePAM 5 MG TABLET PO ONE (13:49)
[2019-03-06] MEDS ORDERED: MAGNESIUM CITRATE 300 ML BOTTLE PO ONE (14:30)
--- NOTE | 2019-03-06 15:36 | PN ---
Physical Exam: SUBJECTIVE: Patient seen and examined at bedside this morning. Patient comfortably sleeping in bed this morning. OBJECTIVE: Vital Signs Temperature 98.2 F 03/06/19 14:34 Pulse Rate 98 H 03/06/19 14:34 Respiratory Rate 16 03/06/19 10:00 Blood Pressure 125/82 03/06/19 14:34 O2 Sat by Pulse Oximetry (%) 98 03/06/19 09:00 GENERAL: The patient is awake, alert, and fully oriented, in no acute distress. HEAD: Normal with no signs of trauma. EYES: PERRLA, EOMI, sclera anicteric, conjunctiva clear. NECK: Trachea midline, full range of motion, supple. LUNGS: Breath sounds equal, clear to auscultation bilaterally. HEART: Regular rate and rhythm, S1, S2 without murmur, rub or gallop. ABDOMEN: Soft, nontender, nondistended, normoactive bowel sounds. EXTREMITIES: 2+ pulses, warm, well-perfused, no edema. NEUROLOGICAL: Cranial nerves II through XII grossly intact. Normal speech, gait not observed. Decreased sensation of b/l LE, Motor strength 3/5 RLE/LLE and 4/5 RUE/LUE. Right foot drop, DTRs +2, +Babinski PSYCH: Normal mood, normal affect. SKIN: Warm, dry, normal turgor, no rashes or lesions noted Active Medications Generic Name Dose Route Start Last Admin Trade Name Freq PRN Reason Stop Dose Admin Acetaminophen 650 mg 03/05/19 16:47 Tylenol - PO Q6H PRN FEVER Amitriptyline HCl 50 mg 03/05/19 22:00 03/05/19 21:11 Elavil - PO 50 mg HS ARNIE Administration Cyclobenzaprine HCl 10 mg 03/05/19 11:36 03/06/19 14:36 Flexeril - PO 10 mg TID ARNIE Administration Duloxetine HCl 20 mg 03/05/19 10:00 03/06/19 09:48 Cymbalta - PO 20 mg DAILY ARNIE Administration Heparin Sodium (Porcine) 5,000 unit 03/05/19 22:00 03/06/19 14:54 Heparin - SQ Not Given TID ARNIE Hydromorphone HCl 8 mg 03/05/19 12:16 03/06/19 09:57 Dilaudid - PO 8 mg Q4H PRN Administration PAIN LEVEL 7-10 Lorazepam 2 mg 03/05/19 14:00 03/06/19 14:55 Ativan - PO Not Given TID ARNIE Lorazepam 1 mg 03/05/19 16:44 Ativan Injection - IVPUSH 03/05/19 16:45 ONCE ONE Lorazepam 1 mg 03/05/19 17:09 Ativan Injection - IVPUSH 03/05/19 17:10 ONCE ONE Oxycodone HCl 30 mg 03/05/19 15:12 03/06/19 11:10 Roxicodone - PO 30 mg Q8H PRN Administration PAIN LEVEL 4-6 Polyethylene Glycol 17 gm 03/04/19 22:15 03/06/19 09:49 Miralax (For Daily Use) - PO 17 gm BID ARNIE Administration Senna/Docusate Sodium 1 tablet 03/06/19 14:00 03/06/19 14:36 Pericolace - PO 1 tablet TID ARNIE Administration Zolpidem Tartrate 10 mg 03/05/19 20:20 03/05/19 21:26 Ambien - PO 03/06/19 20:19 10 mg HS PRN Administration INSOMNIA ASSESSMENT/PLAN: Patient is a 58 year old female with past medical history of untreated MS, lumbar stenosis, s/p reported 33 spinal surgeries, presented to the ED due to intractable back pain, with progressive LE weakness and inability to ambulate. #Worsening low back pain and weakness -MRI of the cervical, thoracic and lumbar spine pending. -Ativan ordered as per patient request, will be given prior to MRI -Ortho consulted (Dr. Marina). Recommendations appreciated. -Assessment: spinal fracture with epidural hematoma -For full neural axis spine MRI. Will need sedation. -Will transfer to [facility] neuroradiology if GA indicated. -Pain management (Dr. Morris) consulted. -Neurology (Dr. Leblanc) consulted. Recommendations appreciated. -Unlikely active MS, no urgency to consider disease modifying agent, to follow up as outpatient -will give 1 dose of steroid 6mg IV while MRI pending -Will continue home medications for pain: Oxycodone 30mg q8, Dilaudid 8mg q8 PRN and flexeril -Ativan 2mg PO TID -Miralax, pericolace, and mag citrate x1 for constipation #FEN -Not on any standing fluids -Electrolytes wnl -Regular diet #Prophylaxis -Heparin 5000 units sq tid #Disposition -full code -med surg Visit type - Emergency Visit Emergency Visit: Yes ED Registration Date: 03/04/19 Care time: The patient presented to the Emergency Department on the above date and was hospitalized for further evaluation of their emergent condition. - New Patient This patient is new to me today: Yes Date on this admission: 03/06/19 - Critical Care Critical Care patient: No
[2019-03-06] MEDS ORDERED: LORazepam 2 MG/ML SDV VIAL IVPUSH ONE (16:45)
[2019-03-06] MEDS: ZOLPIDEM TARTRATE 5 MG TABLET PO PRN (23:00)
[2019-03-06] MEDS: AMITRIPTYLINE HCL 25 MG TABLET (FP) PO SCH (23:00)
[2019-03-07] MEDS ORDERED: PT OWN MED DRAWER 7, Y5N ONE ×2 (05:40→20:10)
[2019-03-07] MEDS: LORazepam 1 MG TABLET PO SCH ×3 (06:02→22:13)
[2019-03-07] MEDS: CYCLOBENZAPRINE HCL 10 MG TABLET (FP) PO SCH ×4 (06:02→22:15)
[2019-03-07] MEDS: SENNOSIDES/DOCUSATE COMBO (SENNA PLUS) TABLET (UD) PO SCH ×3 (06:03→22:13)
[2019-03-07] MEDS: HEPARIN NA (PORCINE) 5,000 UNITS/ML 1ML VIAL SQ SCH ×4 (06:03→22:15)
[2019-03-07 06:55] LABS: BASO % 0.5 % (0-2.0); EOS % 0.8 % (0-4.5); HEMATOCRIT 38.1 % (32.4-45.2); HEMOGLOBIN 12.6 GM/dL (10.7-15.3); LYMPH % 38.8 % (8-40); MCH 30.2 pg (25.7-33.7); MEAN CELL VOLUME 91.6 fl (80-96); MEAN PLT VOLUME 8.1 fl (7.5-11.1); MONO % 6.8 % (3.8-10.2); NEUT % 53.1 % (42.8-82.8); PLATELET COUNT 307 K/MM3 (134-434); RBC 4.16 M/mm3 (3.60-5.2); RDW 13.7 % (11.6-15.6); WHITE BLOOD COUNT 7.3 K/mm3 (4.0-10.0)
[2019-03-07 07:12] LABS: INR 0.89 (0.83-1.09); PROTHROMBIN TIME (PATIENT) 10.5 SEC (9.7-13.0)
[2019-03-07 07:30] LABS: ALBUMIN 3.5 g/dl (3.4-5.0); ALK PHOS 105 U/L (45-117); ANION GAP 4 MMOL/L (8-16); BILIRUBIN,TOTAL 0.5 mg/dL (0.2-1); BLOOD UREA NITROGEN 11 mg/dL (7-18); CALCIUM 9.7 mg/dL (8.5-10.1); CHLORIDE 100 mmol/L (98-107); CO2 34 mmol/L (21-32); CREATININE 0.5 mg/dL (0.55-1.3); GLUCOSE,RANDOM 78 mg/dL (74-106); MAGNESIUM 2.4 mg/dL (1.8-2.4); PHOSPHOROUS 3.7 mg/dL (2.5-4.9); POTASSIUM 4.7 mmol/L (3.5-5.1); SGOT/AST 8 U/L (15-37); SGPT/ALT 14 U/L (13-61); SODIUM 137 mmol/L (136-145); TOT PROT 7.4 g/dl (6.4-8.2)
--- NOTE | 2019-03-07 08:11 | CONSULT ---
Consult Consult Specialty:: pain medicine Referred by:: lee Reason for Consultation:: back and leg pain - History of Present Illness Chief Complaint: back pain History of Present Illness: 58 year old woman with multiple spine surgeries Recently had hardware removal and reports increased pain and weakness. The patient is waiting for MRI- which need to be done under general anesthesia due to anxiety Pain score 8/10 - Past Medical History ...: No - Alcohol/Substance Use Hx Alcohol Use: Yes (socially) - Smoking History Smoking history: Never smoked Have you smoked in the past 12 months: No If you are a former smoker, when did you quit?: 1yr Home Medications - Allergies Allergies/Adverse Reactions: Allergies Allergy/AdvReac Type Severity Reaction Status Date / Time latex Allergy "couldn't Verified 03/04/19 15:23 breathe" morphine Allergy "itching Verified 03/04/19 15:23 from inside out" - Home Medications Home Medications: Ambulatory Orders Amitriptyline HCl [Elavil -] 50 mg PO HS 01/16/19 Lorazepam 2 mg PO Q4H 01/16/19 Oxycodone HCl 30 mg PO Q8H 01/16/19 Cyclobenzaprine HCl 5 mg PO TID tablet 01/23/19 Docusate Sodium [Colace -] 100 mg PO BID 30 Days #0 capsule 01/23/19 HYDROmorphone [Dilaudid -] 8 mg PO Q6H 03/04/19 Cyclobenzaprine HCl 1 tab PO TID 03/05/19 Duloxetine HCl [Cymbalta -] 20 mg PO DAILY 03/05/19 Oxycodone HCl/Acetaminophen [Percocet 10-325 mg Tablet] 1 tab PO Q6H PRN Physical Exam Vital Signs: Vital Signs Temperature 98.3 F 03/06/19 21:51 Pulse Rate 99 H 03/06/19 21:51 Respiratory Rate 20 03/06/19 21:51 Blood Pressure 130/70 03/06/19 21:51 O2 Sat by Pulse Oximetry (%) 98 03/06/19 20:43 Constitutional: Yes: Other (patient resting comfortably no acute distress patient was sleeping when i walked into room) Labs: CBC, BMP 03/07/19 06:00 03/07/19 06:00 Assessment/Plan Lumbar radiculopathy Postlaminectomy syndrome 1. Awaiting MRI spine 2. Please maintain patient on her outpatient pain medication given by Dr Tompkins her pain doctor (i confirmed this with [facility]STOP_ - lorazapam 2mg PO Q8h -dilaudid 8mg PO q4h prn pain -oxycodone 30mg PO q4h prn pain 3. Please recall PRN
[2019-03-07] MEDS: DULoxetine HCL 20 MG CAPSULE.DR (FP) PO SCH (09:43)
[2019-03-07] MEDS: oxyCODONE HCL 5 MG TABLET PO PRN (09:43)
[2019-03-07] MEDS: POLYETHYLENE GLYCOL 3350 119 GM BTL PO SCH ×2 (09:46→22:12)
[2019-03-07] MEDS ORDERED: KETOROLAC TROMETHAMINE 15 MG/ML VIAL IVPUSH ONE (13:10)
[2019-03-07] MEDS ORDERED: LORazepam 2 MG/ML SDV VIAL IVPUSH ONE (14:45)
--- NOTE | 2019-03-07 18:19 | PN ---
Physical Exam: SUBJECTIVE: Patient seen and examined at bedside this morning. Sitting in a chair. Patient was not able to tolerate lying flat in MRI yesterday, thus was not done. Still reports intense back pain, but otherwise no fever or chills. OBJECTIVE: Vital Signs Temperature 98.3 F 03/06/19 21:51 Pulse Rate 99 H 03/06/19 21:51 Respiratory Rate 20 03/06/19 21:51 Blood Pressure 130/70 03/06/19 21:51 O2 Sat by Pulse Oximetry (%) 98 03/06/19 20:43 GENERAL: The patient is awake, alert, and fully oriented, in no acute distress. HEAD: Normal with no signs of trauma. EYES: PERRLA, EOMI, sclera anicteric, conjunctiva clear. NECK: Trachea midline, full range of motion, supple. LUNGS: Breath sounds equal, clear to auscultation bilaterally. HEART: Regular rate and rhythm, S1, S2 without murmur, rub or gallop. ABDOMEN: Soft, nontender, nondistended, normoactive bowel sounds. EXTREMITIES: 2+ pulses, warm, well-perfused, no edema. NEUROLOGICAL: Cranial nerves II through XII grossly intact. Normal speech, walks with a cane. Decreased sensation of b/l LE, Motor strength 3/5 RLE/LLE and 4/5 RUE/LUE. PSYCH: Normal mood, normal affect. SKIN: Warm, dry, normal turgor, no rashes or lesions noted Laboratory Results - last 24 hr 03/07/19 03/07/19 03/07/19 06:00 06:00 06:00 WBC 7.3 RBC 4.16 Hgb 12.6 Hct 38.1 MCV 91.6 MCH 30.2 MCHC 33.0 RDW 13.7 Plt Count 307 MPV 8.1 Absolute Neuts (auto) 3.9 Neutrophils % 53.1 Lymphocytes % 38.8 Monocytes % 6.8 Eosinophils % 0.8 Basophils % 0.5 Nucleated RBC % 0 PT with INR 10.50 INR 0.89 Sodium 137 Potassium 4.7 Chloride 100 Carbon Dioxide 34 H Anion Gap 4 L BUN 11 Creatinine 0.5 L Creat Clearance w eGFR 127.63 Random Glucose 78 Calcium 9.7 Phosphorus 3.7 Magnesium 2.4 Total Bilirubin 0.5 AST 8 L ALT 14 Alkaline Phosphatase 105 Total Protein 7.4 Albumin 3.5 Blood Type Antibody Screen 03/07/19 06:00 WBC RBC Hgb Hct MCV MCH MCHC RDW Plt Count MPV Absolute Neuts (auto) Neutrophils % Lymphocytes % Monocytes % Eosinophils % Basophils % Nucleated RBC % PT with INR INR Sodium Potassium Chloride Carbon Dioxide Anion Gap BUN Creatinine Creat Clearance w eGFR Random Glucose Calcium Phosphorus Magnesium Total Bilirubin AST ALT Alkaline Phosphatase Total Protein Albumin Blood Type A POSITIVE Antibody Screen Negative Active Medications Generic Name Dose Route Start Last Admin Trade Name Freq PRN Reason Stop Dose Admin Acetaminophen 650 mg 03/05/19 16:47 Tylenol - PO Q6H PRN FEVER Amitriptyline HCl 50 mg 03/05/19 22:00 03/06/19 23:00 Elavil - PO 50 mg HS ARNIE Administration Cyclobenzaprine HCl 10 mg 03/05/19 11:36 03/07/19 14:52 Flexeril - PO 10 mg TID ARNIE Administration Diphenhydramine HCl 25 mg 03/07/19 13:09 Benadryl Injection - IVPUSH Q6H PRN FOR ITCHING Duloxetine HCl 20 mg 03/05/19 10:00 03/07/19 09:43 Cymbalta - PO 20 mg DAILY ARNIE Administration Heparin Sodium (Porcine) 5,000 unit 03/05/19 22:00 03/07/19 14:52 Heparin - SQ Not Given TID ARNIE Hydromorphone HCl 8 mg 03/05/19 12:16 03/07/19 12:36 Dilaudid - PO 8 mg Q4H PRN Administration PAIN LEVEL 7-10 Lorazepam 2 mg 03/05/19 14:00 03/07/19 15:09 Ativan - PO 2 mg TID ARNIE Administration Oxycodone HCl 30 mg 03/05/19 15:12 03/07/19 09:43 Roxicodone - PO 30 mg Q8H PRN Administration PAIN LEVEL 4-6 Polyethylene Glycol 17 gm 03/04/19 22:15 03/07/19 09:46 Miralax (For Daily Use) - PO 17 gm BID ARNIE Administration Senna/Docusate Sodium 1 tablet 03/06/19 14:00 03/07/19 14:52 Pericolace - PO Not Given TID [facility] ASSESSMENT/PLAN: Patient is a 58 year old female with past medical history of untreated MS, lumbar stenosis, s/p reported 33 spinal surgeries, presented to the ED due to intractable back pain, with progressive LE weakness and inability to ambulate. #Worsening low back pain and weakness -MRI of the cervical, thoracic and lumbar spine pending. -Ativan ordered as per patient request, will be given prior to MRI -Ortho consulted (Dr. Marina). Recommendations appreciated. -Assessment: spinal fracture with epidural hematoma -For full neural axis spine MRI. Will need sedation. -Will transfer to [facility] neuroradiology if [place] indicated. -Pain management (Dr. Morris) consulted. -Neurology (Dr. Leblanc) consulted. Recommendations appreciated. -Unlikely active MS, no urgency to consider disease modifying agent, to follow up as outpatient -will give 1 dose of steroid 6mg IV while MRI pending -Will continue home medications for pain: Oxycodone 30mg q8, Dilaudid 8mg q8 PRN and flexeril -Ativan 2mg PO TID -Miralax, pericolace, and mag citrate x1 for constipation #FEN -Not on any standing fluids -Electrolytes wnl -Regular diet #Prophylaxis -Heparin 5000 units sq tid #Disposition -full code -med surg Visit type - Emergency Visit Emergency Visit: Yes ED Registration Date: 03/04/19 Care time: The patient presented to the Emergency Department on the above date and was hospitalized for further evaluation of their emergent condition. - New Patient This patient is new to me today: Yes Date on this admission: 03/07/19 - Critical Care Critical Care patient: No
--- NOTE | 2019-03-07 18:35 | PN ---
Teaching Attending Note Name of Resident: Jennie Conrad ATTENDING PHYSICIAN STATEMENT I saw and evaluated the patient. I reviewed the resident's note and discussed the case with the resident. I agree with the resident's findings and plan as documented. SUBJECTIVE: Patient is very tearful and in pain with constant spasm and the is at bedside. OBJECTIVE: Vital Signs Temperature 98.3 F 03/06/19 21:51 Pulse Rate 99 H 03/06/19 21:51 Respiratory Rate 20 03/06/19 21:51 Blood Pressure 130/70 03/06/19 21:51 O2 Sat by Pulse Oximetry (%) 98 03/06/19 20:43 GENERAL: The patient is awake, alert, and fully oriented, in no acute distress. HEAD: Normal with no signs of trauma. EYES: PERRL, extraocular movements intact, sclera anicteric, conjunctiva clear. No ptosis. ENT: Ears normal, nares patent, oropharynx clear without exudates, moist mucous membranes. NECK: Trachea midline, full range of motion, supple. LUNGS: Breath sounds equal, clear to auscultation bilaterally, no wheezes, no crackles, no accessory muscle use. HEART: Regular rate and rhythm, S1, S2 without murmur, rub or gallop. ABDOMEN: Soft, nontender, nondistended, normoactive bowel sounds, no guarding, no rebound, no hepatosplenomegaly, no masses. EXTREMITIES: 2+ pulses, warm, well-perfused, no edema. NEUROLOGICAL: Cranial nerves II through XII grossly intact. Normal speech, gait not observed. PSYCH: Normal mood, normal affect. SKIN: Warm, dry, normal turgor, no rashes or lesions noted CBCD WBC 7.3 K/mm3 (4.0-10.0) 03/07/19 06:00 RBC 4.16 M/mm3 (3.60-5.2) 03/07/19 06:00 Hgb 12.6 GM/dL (10.7-15.3) 03/07/19 06:00 Hct 38.1 % (32.4-45.2) 03/07/19 06:00 MCV 91.6 fl (80-96) 03/07/19 06:00 MCHC 33.0 g/dl (32.0-36.0) 03/07/19 06:00 RDW 13.7 % (11.6-15.6) 03/07/19 06:00 Plt Count 307 K/MM3 (134-434) 03/07/19 06:00 MPV 8.1 fl (7.5-11.1) 03/07/19 06:00 CMP Sodium 137 mmol/L (136-145) 03/07/19 06:00 Potassium 4.7 mmol/L (3.5-5.1) 03/07/19 06:00 Chloride 100 mmol/L (98-107) 03/07/19 06:00 Carbon Dioxide 34 mmol/L (21-32) H 03/07/19 06:00 Anion Gap 4 MMOL/L (8-16) L 03/07/19 06:00 BUN 11 mg/dL (7-18) 03/07/19 06:00 Creatinine 0.5 mg/dL (0.55-1.3) L 03/07/19 06:00 Creat Clearance w eGFR 127.63 (>60) 03/07/19 06:00 Random Glucose 78 mg/dL (74-106) 03/07/19 06:00 Calcium 9.7 mg/dL (8.5-10.1) 03/07/19 06:00 Total Bilirubin 0.5 mg/dL (0.2-1) 03/07/19 06:00 AST 8 U/L (15-37) L 03/07/19 06:00 ALT 14 U/L (13-61) 03/07/19 06:00 Alkaline Phosphatase 105 U/L (45-117) 03/07/19 06:00 Total Protein 7.4 g/dl (6.4-8.2) 03/07/19 06:00 Albumin 3.5 g/dl (3.4-5.0) 03/07/19 06:00 Current Medications Generic Name Dose Route Start Last Admin Trade Name Freq PRN Reason Stop Dose Admin Acetaminophen 650 mg 03/05/19 16:47 Tylenol - PO Q6H PRN FEVER Amitriptyline HCl 50 mg 03/05/19 22:00 03/06/19 23:00 Elavil - PO 50 mg HS ARNIE Administration Cyclobenzaprine HCl 10 mg 03/05/19 11:36 03/07/19 14:52 Flexeril - PO 10 mg TID ARNIE Administration Diphenhydramine HCl 25 mg 03/07/19 13:09 Benadryl Injection - IVPUSH Q6H PRN FOR ITCHING Duloxetine HCl 20 mg 03/05/19 10:00 03/07/19 09:43 Cymbalta - PO 20 mg DAILY ARNIE Administration Heparin Sodium (Porcine) 5,000 unit 03/05/19 22:00 03/07/19 14:52 Heparin - SQ Not Given TID ARNIE Hydromorphone HCl 8 mg 03/05/19 12:16 03/07/19 12:36 Dilaudid - PO 8 mg Q4H PRN Administration PAIN LEVEL 7-10 Lorazepam 2 mg 03/05/19 14:00 03/07/19 15:09 Ativan - PO 2 mg TID [facility] Administration Oxycodone HCl 30 mg 03/05/19 15:12 03/07/19 09:43 Roxicodone - PO 30 mg Q8H PRN Administration PAIN LEVEL 4-6 Polyethylene Glycol 17 gm 03/04/19 22:15 03/07/19 09:46 Miralax (For Daily Use) - PO 17 gm BID [facility] Administration Senna/Docusate Sodium 1 tablet 03/06/19 14:00 03/07/19 14:52 Pericolace - PO Not Given TID [facility] Home Medications Medication Instructions Recorded Amitriptyline HCl [Elavil -] 50 mg PO HS 01/16/19 Lorazepam 2 mg PO Q4H 01/16/19 Oxycodone HCl 30 mg PO Q8H 01/16/19 Docusate Sodium [Colace -] 100 mg PO BID 30 Days #0 capsule 01/23/19 HYDROmorphone [Dilaudid -] 8 mg PO Q6H 03/04/19 Cyclobenzaprine HCl 1 tab PO TID 03/05/19 Duloxetine HCl [Cymbalta -] 20 mg PO DAILY 03/05/19 Oxycodone HCl/Acetaminophen 1 tab PO Q6H PRN 03/05/19 [Percocet 10-325 mg Tablet] ASSESSMENT AND PLAN: Patient is a 58yo female with PMHx of MS, and spinal stenosis with multiple low back surgeries as per patient around 35 , presented with lower back pain, difficulty walking, and R foot drop # Postlaminectomy syndrome with Lumbar radiculopathy : patient had multiple surgeries. requesting benadryl 25mg q6h IV. one time dose of toradol, pain management appreciated. Outpatient pain medications are given by Dr Tompkins her pain doctor - MRI of spine arrangements as per Dr. Marina. s/p decadron x 1. On multiple pain medications for pain will get pain management MD get involved. - I- Stopped Reference #: [id number]- lorazapam 2mg PO Q8h, dilaudid 8mg PO q4h prn pain and oxycodone 30mg PO q4h prn pain - appreciate dr. Leblanc input, suspicion for MS flare , on Bowel regimen continue , increased the doses of the bowel regimen since still constipated. - has stitches over mid line surgical scar form December. to be addressed by Surgeon by . - pain management consult appreciated - start heparin sq, can stop before sx when planned -will discuss with Dr. Marina to arrange MRI with general anesthesia.
[2019-03-07] MEDS: ZOLPIDEM TARTRATE 5 MG TABLET PO PRN (22:13)
[2019-03-07] MEDS: AMITRIPTYLINE HCL 25 MG TABLET (FP) PO SCH (22:14)
[2019-03-08] MEDS: SENNOSIDES/DOCUSATE COMBO (SENNA PLUS) TABLET (UD) PO SCH ×3 (06:59→22:42)
[2019-03-08] MEDS: HEPARIN NA (PORCINE) 5,000 UNITS/ML 1ML VIAL SQ SCH ×2 (06:59→07:05)
[2019-03-08] MEDS: CYCLOBENZAPRINE HCL 10 MG TABLET (FP) PO SCH ×3 (06:59→22:41)
[2019-03-08] MEDS: LORazepam 1 MG TABLET PO SCH ×3 (07:00→22:42)
--- NOTE | 2019-03-08 10:06 | PN ---
Progress Note (short form) - Note Progress Note: 58F well known to [facility], with complex past spine history (status post cervical, thoracic, lumbar-sacral fusion). Pt. recently underwent removal thoracolumbar hardware and was doing WELL at home. She sustained a mechanical fall at home. Due to weakness in her legs, local Fire Department was called to assist. While firemen were lifting patient, they heard and felt a loud crack in her back. Since then the patient has become functionally debilitated with back pain and new onset bilateral lower extremity weakness (with new left foot drop that has become a fixed equinuus contracture). Pain moderately controlled. Pt. denies recent history of chest pain/shortness of breath/nausea/vomiting/ chills/sweats. (+) Voiding; urinary incontinence; (+) Flatus; (+)BM - bowel control preserved. PE: AAO x 3. NAD. Full Spine Exam: Wounds pristine; clean/dry/intact. Nylon sutures in place. No clinical concern for rell-incisional inflammation. B/L UE M: C5-T1 5/5. B/L UE S: C5-T1 2/2. LLE M: L2-S1 0/5. LLE S: L2-S1 1/2. RLE M: L2-S1 4/5. RLE S: L2-S1 1/2. Imaging: No new imaging obtained. A/P: 58F s/p new spine injury presents with acute neurological decline and clinical concern for thoraco-lumbar spine injury. -Pt. unable to be transferred to outside institution for MRI under general anaesthesia C/T/L spine. -As discussed with Dr. Keller (radiology), pt. to undergo CT myelogram with sedation T/L (THORACOLUMBAR) spine at [facility] TODAY. Benefits outweigh risks. -Pain control. -Mechanical DVT PPx. only (MIGUEL ANGEL's, SCD's). No chemical DVT PPx. at this time due to possible need for spine surgery). -Incentive spirometry. -NWB B/L LE. WBAT B/L UE. -PT/OT/Rehab. -Care per primary medical hospitalist team. -Will follow. Shayan Marina MD (Orthopaedic Surgery).
[2019-03-08] MEDS: POLYETHYLENE GLYCOL 3350 119 GM BTL PO SCH ×2 (10:17→22:51)
[2019-03-08] MEDS: DULoxetine HCL 20 MG CAPSULE.DR (FP) PO SCH (10:17)
--- NOTE | 2019-03-08 10:24 | EKG ---
Test Reason : Blood Pressure : / mmHG Vent. Rate : 069 BPM Atrial Rate : 069 BPM P-R Int : 144 ms QRS Dur : 100 ms QT Int : 378 ms P-R-T Axes : 086 086 065 degrees QTc Int : 405 ms NORMAL SINUS RHYTHM NORMAL ECG WHEN COMPARED WITH ECG OF 04-MAR-2019 21:11, NO SIGNIFICANT CHANGE WAS FOUND Confirmed by SOPHY ORDONEZ MD ([id number]) on 03/08/2019 10:23:29 AM Referred By: Confirmed By:SOPHY ORDONEZ MD
[2019-03-08] MEDS ORDERED: HYDROmorphone HCl 2 MG/ML VIAL SQ ONE (10:27)
[2019-03-08] MEDS ORDERED: diphenhydrAMINE HCL 25 MG CAPSULE (FP) PO ONE (12:15)
[2019-03-08] MEDS ORDERED: LORazepam 2 MG/ML SDV VIAL IVPUSH ONE (14:30)
--- NOTE | 2019-03-08 17:31 | PN ---
Physical Exam: SUBJECTIVE: Patient seen and examined at bedside this morning. No acute events overnight. OBJECTIVE: Vital Signs Temperature 98.2 F 03/08/19 15:40 Pulse Rate 82 03/08/19 15:40 Respiratory Rate 20 03/08/19 15:40 Blood Pressure 103/56 L 03/08/19 15:40 O2 Sat by Pulse Oximetry (%) 96 03/08/19 09:00 GENERAL: The patient is awake, alert, and fully oriented, in no acute distress. HEAD: Normal with no signs of trauma. EYES: PERRLA, EOMI, sclera anicteric, conjunctiva clear. NECK: Trachea midline, full range of motion, supple. LUNGS: Breath sounds equal, clear to auscultation bilaterally. HEART: Regular rate and rhythm, S1, S2 without murmur, rub or gallop. ABDOMEN: Soft, nontender, nondistended, normoactive bowel sounds. EXTREMITIES: 2+ pulses, warm, well-perfused, no edema. NEUROLOGICAL: Cranial nerves II through XII grossly intact. Normal speech, walks with a cane. Decreased sensation of b/l LE, Motor strength 3/5 RLE/LLE and 4/5 RUE/LUE. PSYCH: Normal mood, normal affect. SKIN: Warm, dry, normal turgor, no rashes or lesions noted Active Medications Generic Name Dose Route Start Last Admin Trade Name Freq PRN Reason Stop Dose Admin Acetaminophen 650 mg 03/05/19 16:47 Tylenol - PO Q6H PRN FEVER Amitriptyline HCl 50 mg 03/05/19 22:00 03/07/19 22:14 Elavil - PO 50 mg HS ARNIE Administration Cyclobenzaprine HCl 10 mg 03/05/19 11:36 03/08/19 14:29 Flexeril - PO Not Given TID ARNIE Diphenhydramine HCl 25 mg 03/07/19 13:09 03/08/19 03:25 Benadryl Injection - IVPUSH 25 mg Q6H PRN Administration FOR ITCHING Duloxetine HCl 20 mg 03/05/19 10:00 03/08/19 10:17 Cymbalta - PO 20 mg DAILY ARNIE Administration Hydromorphone HCl 8 mg 03/05/19 12:16 03/08/19 10:23 Dilaudid - PO 8 mg Q4H PRN Administration PAIN LEVEL 7-10 Lorazepam 2 mg 03/05/19 14:00 03/08/19 14:29 Ativan - PO Not Given TID ARNIE Oxycodone HCl 30 mg 03/05/19 15:12 03/07/19 09:43 Roxicodone - PO 30 mg Q8H PRN Administration PAIN LEVEL 4-6 Polyethylene Glycol 17 gm 03/04/19 22:15 03/08/19 10:17 Miralax (For Daily Use) - PO Not Given BID ARNIE Senna/Docusate Sodium 1 tablet 03/06/19 14:00 03/08/19 14:30 Pericolace - PO Not Given TID ARNIE Zolpidem Tartrate 10 mg 03/07/19 21:39 03/07/19 22:13 Ambien - PO 10 mg HS PRN Administration INSOMNIA ASSESSMENT/PLAN: Patient is a 58 year old female with past medical history of untreated MS, lumbar stenosis, s/p reported 33 spinal surgeries, presented to the ED due to intractable back pain, with progressive LE weakness and inability to ambulate. #Low back pain and weakness -Ortho consulted (Dr. Marina). Recommendations appreciated: -clinical concern for thoraco-lumbar spine injury. -CT myelogram with sedation done -Mechanical DVT ppx. No chemical ppx at this time due to possible need for spine surgery. -Incentive spirometry -Physical therapy non weight bearing -Pain management (Dr. Morris) consulted. Recs appreciated. -Neurology (Dr. Leblanc) consulted. Recommendations appreciated. -Unlikely active MS, no urgency to consider disease modifying agent, to follow up as outpatient -Will continue home medications for pain: Oxycodone 30mg q8, Dilaudid 8mg q8 PRN and flexeril -Ativan 2mg PO TID -Miralax, pericolace for constipation #FEN -Not on any standing fluids -Electrolytes wnl -Regular diet #Prophylaxis -Heparin 5000 units sq tid #Disposition -full code -med surg Visit type - Emergency Visit Emergency Visit: Yes ED Registration Date: 03/04/19 Care time: The patient presented to the Emergency Department on the above date and was hospitalized for further evaluation of their emergent condition. - New Patient This patient is new to me today: No - Critical Care Critical Care patient: No
--- NOTE | 2019-03-08 21:08 | PN ---
Teaching Attending Note Name of Resident: Jennie Conrad ATTENDING PHYSICIAN STATEMENT I saw and evaluated the patient. I reviewed the resident's note and discussed the case with the resident. I agree with the resident's findings and plan as documented. SUBJECTIVE: Patient continues to have severe pain. at bedside. OBJECTIVE: Vital Signs Temperature 98.2 F 03/08/19 15:40 Pulse Rate 82 03/08/19 15:40 Respiratory Rate 20 03/08/19 15:40 Blood Pressure 103/56 L 03/08/19 15:40 O2 Sat by Pulse Oximetry (%) 96 03/08/19 09:00 GENERAL: The patient is awake, alert, and fully oriented. HEAD: Normal with no signs of trauma. EYES: PERRL, extraocular movements intact, sclera anicteric, conjunctiva clear. ENT: Ears normal, oropharynx clear without exudates, moist mucous membranes. NECK: Trachea midline, full range of motion, supple. LUNGS: Breath sounds equal, clear to auscultation bilaterally, no wheezes, no crackles, no accessory muscle use. HEART: Regular rate and rhythm, S1, S2 without murmur, rub or gallop. ABDOMEN: Soft, nontender, nondistended, normoactive bowel sounds, no guarding, no rebound, no hepatosplenomegaly, no masses. EXTREMITIES: 2+ pulses, warm, well-perfused, no edema. NEUROLOGICAL/msk exam: per orthopedic Dr. nuñez PSYCH: tearful bc of pain SKIN: Warm, dry, normal turgor. CBCD WBC 7.3 K/mm3 (4.0-10.0) 03/07/19 06:00 RBC 4.16 M/mm3 (3.60-5.2) 03/07/19 06:00 Hgb 12.6 GM/dL (10.7-15.3) 03/07/19 06:00 Hct 38.1 % (32.4-45.2) 03/07/19 06:00 MCV 91.6 fl (80-96) 03/07/19 06:00 MCHC 33.0 g/dl (32.0-36.0) 03/07/19 06:00 RDW 13.7 % (11.6-15.6) 03/07/19 06:00 Plt Count 307 K/MM3 (134-434) 03/07/19 06:00 MPV 8.1 fl (7.5-11.1) 03/07/19 06:00 CMP Sodium 137 mmol/L (136-145) 03/07/19 06:00 Potassium 4.7 mmol/L (3.5-5.1) 03/07/19 06:00 Chloride 100 mmol/L (98-107) 03/07/19 06:00 Carbon Dioxide 34 mmol/L (21-32) H 03/07/19 06:00 Anion Gap 4 MMOL/L (8-16) L 03/07/19 06:00 BUN 11 mg/dL (7-18) 03/07/19 06:00 Creatinine 0.5 mg/dL (0.55-1.3) L 03/07/19 06:00 Creat Clearance w eGFR 127.63 (>60) 03/07/19 06:00 Random Glucose 78 mg/dL (74-106) 03/07/19 06:00 Calcium 9.7 mg/dL (8.5-10.1) 03/07/19 06:00 Total Bilirubin 0.5 mg/dL (0.2-1) 03/07/19 06:00 AST 8 U/L (15-37) L 03/07/19 06:00 ALT 14 U/L (13-61) 03/07/19 06:00 Alkaline Phosphatase 105 U/L (45-117) 03/07/19 06:00 Total Protein 7.4 g/dl (6.4-8.2) 03/07/19 06:00 Albumin 3.5 g/dl (3.4-5.0) 03/07/19 06:00 Current Medications Generic Name Dose Route Start Last Admin Trade Name Freq PRN Reason Stop Dose Admin Acetaminophen 650 mg 03/05/19 16:47 Tylenol - PO Q6H PRN FEVER Amitriptyline HCl 50 mg 03/05/19 22:00 03/07/19 22:14 Elavil - PO 50 mg HS ARNIE Administration Cyclobenzaprine HCl 10 mg 03/05/19 11:36 03/08/19 14:29 Flexeril - PO Not Given TID ARNIE Diphenhydramine HCl 25 mg 03/07/19 13:09 03/08/19 03:25 Benadryl Injection - IVPUSH 25 mg Q6H PRN Administration FOR ITCHING Duloxetine HCl 20 mg 03/05/19 10:00 03/08/19 10:17 Cymbalta - PO 20 mg DAILY ARNIE Administration Hydromorphone HCl 8 mg 03/05/19 12:16 03/08/19 10:23 Dilaudid - PO 8 mg Q4H PRN Administration PAIN LEVEL 7-10 Lorazepam 2 mg 03/05/19 14:00 03/08/19 14:29 Ativan - PO Not Given TID ARNIE Oxycodone HCl 30 mg 03/05/19 15:12 03/07/19 09:43 Roxicodone - PO 30 mg Q8H PRN Administration PAIN LEVEL 4-6 Polyethylene Glycol 17 gm 03/04/19 22:15 03/08/19 10:17 Miralax (For Daily Use) - PO Not Given BID ARNIE Senna/Docusate Sodium 1 tablet 03/06/19 14:00 03/08/19 14:30 Pericolace - PO Not Given TID ARNIE Zolpidem Tartrate 10 mg 03/07/19 21:39 03/07/19 22:13 Ambien - PO 10 mg HS PRN Administration INSOMNIA Home Medications Medication Instructions Recorded Amitriptyline HCl [Elavil -] 50 mg PO HS 01/16/19 Lorazepam 2 mg PO Q4H 01/16/19 Oxycodone HCl 30 mg PO Q8H 01/16/19 Docusate Sodium [Colace -] 100 mg PO BID 30 Days #0 capsule 01/23/19 HYDROmorphone [Dilaudid -] 8 mg PO Q6H 03/04/19 Cyclobenzaprine HCl 1 tab PO TID 03/05/19 Duloxetine HCl [Cymbalta -] 20 mg PO DAILY 03/05/19 Oxycodone HCl/Acetaminophen 1 tab PO Q6H PRN 03/05/19 [Percocet 10-325 mg Tablet] ASSESSMENT AND PLAN: Patient is a 58yo female with PMHx of MS, and spinal stenosis with multiple low back surgeries as per patient around 35 , presented with lower back pain, difficulty walking, and R foot drop # Postlaminectomy syndrome with Lumbar radiculopathy : patient had multiple surgeries. continue pain meds. further care by ortho and anesthesia. patient is requesting benadryl 25mg q6h IV. Outpatient pain medications are given by Dr Tompkins her pain doctor - MRI of spine arrangements as per Dr. Nuñez. s/p decadron x 1. I- Stopped Reference #: [id number]- lorazapam 2mg PO Q8h, dilaudid 8mg PO q4h prn pain and oxycodone 30mg PO q4h prn pain. has stitches over mid line surgical scar form December. to be addressed by Surgeon by . -Dr. Nuñez to arrange MRI with general anesthesia. # appreciate dr. Leblanc input, suspicion for MS flare , on Bowel regimen continue , increased the doses of the bowel regimen since still constipated. hold heparin sq, as per dr nuñez to hold it for possible sx
[2019-03-08] MEDS ORDERED: PT OWN MED DRAWER 7, Y5N ONE (22:38)
[2019-03-08] MEDS: ZOLPIDEM TARTRATE 5 MG TABLET PO PRN (22:41)
[2019-03-08] MEDS: AMITRIPTYLINE HCL 25 MG TABLET (FP) PO SCH (22:42)
[2019-03-09] MEDS: LORazepam 1 MG TABLET PO SCH ×3 (06:41→21:41)
[2019-03-09] MEDS: SENNOSIDES/DOCUSATE COMBO (SENNA PLUS) TABLET (UD) PO SCH ×3 (06:41→21:40)
[2019-03-09] MEDS: CYCLOBENZAPRINE HCL 10 MG TABLET (FP) PO SCH ×3 (06:41→21:40)
[2019-03-09] MEDS: POLYETHYLENE GLYCOL 3350 119 GM BTL PO SCH ×2 (09:57→22:47)
[2019-03-09] MEDS: DULoxetine HCL 20 MG CAPSULE.DR (FP) PO SCH (10:00)
--- NOTE | 2019-03-09 10:50 | RAPID ---
Physical Examination Vital Signs: Vital Signs Temperature 98.0 F 03/09/19 07:56 Pulse Rate 75 03/09/19 07:56 Respiratory Rate 14 03/09/19 07:56 Blood Pressure 129/64 03/09/19 07:56 O2 Sat by Pulse Oximetry (%) 96 03/08/19 21:00 Pt. states that her right foot gave out while ambulating from the bathroom. Denies loss of consciousness or hitting her head. Pt. is alert and oriented. Physical Therapy called to lift Pt. using Pt. lifting device. On PE: VS- 134/77 , HR: 95. Pt. alert cooperative. CTAB, nml s1, s2. Dr. Marina notified and agreed to assess Pt. Pt. endorses increased back pain. Will defer imaging to Dr. Marina and his assessment given complicated surgical history. Labs: CBC, BMP 03/07/19 06:00 03/07/19 06:00
--- NOTE | 2019-03-09 10:53 | FALL ---
Fall Exam - Event Witnessed fall: No Location of Fall: Bathroom Fall from: While ambulating - Pre-Fall Mental Status: Alert, Cooperative Current Medications: Current Medications Generic Name Dose Route Start Last Admin Trade Name Freq PRN Reason Stop Dose Admin Acetaminophen 650 mg 03/05/19 16:47 Tylenol - PO Q6H PRN FEVER Amitriptyline HCl 50 mg 03/05/19 22:00 03/08/19 22:42 Elavil - PO 50 mg HS ARNIE Administration Cyclobenzaprine HCl 10 mg 03/05/19 11:36 03/09/19 06:41 Flexeril - PO 10 mg TID ARNIE Administration Diphenhydramine HCl 25 mg 03/07/19 13:09 03/08/19 03:25 Benadryl Injection - IVPUSH 25 mg Q6H PRN Administration FOR ITCHING Duloxetine HCl 20 mg 03/05/19 10:00 03/09/19 10:00 Cymbalta - PO 20 mg DAILY ARNEI Administration Hydromorphone HCl 8 mg 03/05/19 12:16 03/08/19 10:23 Dilaudid - PO 8 mg Q4H PRN Administration PAIN LEVEL 7-10 Lorazepam 2 mg 03/05/19 14:00 03/09/19 06:41 Ativan - PO 2 mg TID ARNIE Administration Oxycodone HCl 30 mg 03/05/19 15:12 03/07/19 09:43 Roxicodone - PO 30 mg Q8H PRN Administration PAIN LEVEL 4-6 Polyethylene Glycol 17 gm 03/04/19 22:15 03/09/19 09:57 Miralax (For Daily Use) - PO Not Given BID ARNIE Senna/Docusate Sodium 1 tablet 03/06/19 14:00 03/09/19 06:41 Pericolace - PO 1 tablet TID ARNIE Administration Zolpidem Tartrate 10 mg 03/07/19 21:39 03/08/19 22:41 Ambien - PO 10 mg HS PRN Administration INSOMNIA - Post-Fall Patient Outcome: Pain Only Exam Findings: CTAB, HR, nml S1, S2 Treatment: None (Deferring treatment until Dr. Marina assesses Pt. Pt. hemodynamically stable at this time, amada c/w neurocheck protocol) Vital Signs: Vital Signs Temperature 98.0 F 03/09/19 07:56 Pulse Rate 75 03/09/19 07:56 Respiratory Rate 14 03/09/19 07:56 Blood Pressure 129/64 03/09/19 07:56 O2 Sat by Pulse Oximetry (%) 96 03/08/19 21:00 V: 134/77, HR: 95. Pt. alert cooperative. LOC Post-Fall: Awake, Alert, Oriented Identify factors for HIGH RISK for Head Injury: None of the above
[2019-03-09 13:56] LABS: EPI CELLS 1.9 /HPF (0-5/HPF); PH,URINE 7.5 (5.0-8.0); URINE APPEARANCE TURBID; URINE BACTERIA 62.3 /hpf (NEGATIVE); URINE BILIRUBIN NEGATIVE (NEGATIVE); URINE CASTS 1 /hpf (0-8); URINE COLOR YELLOW; URINE GLUCOSE (UA) NEGATIVE (NEGATIVE); URINE KETONE NEGATIVE (NEGATIVE); URINE LEUK ESTERASE TRACE (NEGATIVE); URINE NITRITE NEGATIVE (NEGATIVE); URINE PROTEIN NEGATIVE (NEGATIVE); URINE RBC 5 /hpf (0-4); URINE UROBILINOGEN 0.2 mg/dL (0.2-1.0); URINE WBC 2 /hpf (0-5)
--- NOTE | 2019-03-09 15:29 | PN ---
Progress Note (short form) - Note Progress Note: Events were noted. refer to the incident report. Vital Signs Temperature 98.1 F 03/09/19 12:00 Pulse Rate 87 03/09/19 12:00 Respiratory Rate 15 03/09/19 12:00 Blood Pressure 112/56 L 03/09/19 12:00 O2 Sat by Pulse Oximetry (%) 98 03/09/19 09:00 GENERAL: The patient is awake, alert, and fully oriented. HEAD: Normal with no signs of trauma. EYES: PERRL, extraocular movements intact, sclera anicteric, conjunctiva clear. ENT: Ears normal, oropharynx clear without exudates, moist mucous membranes. NECK: Trachea midline, full range of motion, supple. LUNGS: Breath sounds equal, clear to auscultation bilaterally, no wheezes, no crackles, no accessory muscle use. HEART: Regular rate and rhythm, S1, S2 without murmur, rub or gallop. ABDOMEN: Soft, nontender, nondistended, normoactive bowel sounds, no guarding, no rebound. EXTREMITIES: 2+ pulses, warm, well-perfused, no edema. NEUROLOGICAL/msk exam: per orthopedic Dr. nuñez PSYCH: tearful bc of pain SKIN: Warm, dry, normal turgor. WBC 7.3 K/mm3 (4.0-10.0) 03/07/19 06:00 RBC 4.16 M/mm3 (3.60-5.2) 03/07/19 06:00 Hgb 12.6 GM/dL (10.7-15.3) 03/07/19 06:00 Hct 38.1 % (32.4-45.2) 03/07/19 06:00 MCV 91.6 fl (80-96) 03/07/19 06:00 MCHC 33.0 g/dl (32.0-36.0) 03/07/19 06:00 RDW 13.7 % (11.6-15.6) 03/07/19 06:00 Plt Count 307 K/MM3 (134-434) 03/07/19 06:00 MPV 8.1 fl (7.5-11.1) 03/07/19 06:00 CMP Sodium 137 mmol/L (136-145) 03/07/19 06:00 Potassium 4.7 mmol/L (3.5-5.1) 03/07/19 06:00 Chloride 100 mmol/L (98-107) 03/07/19 06:00 Carbon Dioxide 34 mmol/L (21-32) H 03/07/19 06:00 Anion Gap 4 MMOL/L (8-16) L 03/07/19 06:00 BUN 11 mg/dL (7-18) 03/07/19 06:00 Creatinine 0.5 mg/dL (0.55-1.3) L 03/07/19 06:00 Creat Clearance w eGFR 127.63 (>60) 03/07/19 06:00 Random Glucose 78 mg/dL (74-106) 03/07/19 06:00 Calcium 9.7 mg/dL (8.5-10.1) 03/07/19 06:00 Total Bilirubin 0.5 mg/dL (0.2-1) 03/07/19 06:00 AST 8 U/L (15-37) L 03/07/19 06:00 ALT 14 U/L (13-61) 03/07/19 06:00 Alkaline Phosphatase 105 U/L (45-117) 03/07/19 06:00 Total Protein 7.4 g/dl (6.4-8.2) 03/07/19 06:00 Albumin 3.5 g/dl (3.4-5.0) 03/07/19 06:00 Current Medications Generic Name Dose Route Start Last Admin Trade Name Freq PRN Reason Stop Dose Admin Acetaminophen 650 mg 03/05/19 16:47 Tylenol - PO Q6H PRN FEVER Amitriptyline HCl 50 mg 03/05/19 22:00 03/08/19 22:42 Elavil - PO 50 mg HS ARNIE Administration Cyclobenzaprine HCl 10 mg 03/05/19 11:36 03/09/19 13:15 Flexeril - PO 10 mg TID ARNIE Administration Diphenhydramine HCl 25 mg 03/07/19 13:09 03/08/19 03:25 Benadryl Injection - IVPUSH 25 mg Q6H PRN Administration FOR ITCHING Duloxetine HCl 20 mg 03/05/19 10:00 03/09/19 10:00 Cymbalta - PO 20 mg DAILY ARNIE Administration Lorazepam 2 mg 03/05/19 14:00 03/09/19 13:23 Ativan - PO 2 mg TID ARNIE Administration Oxycodone HCl 30 mg 03/05/19 15:12 03/07/19 09:43 Roxicodone - PO 30 mg Q8H PRN Administration PAIN LEVEL 4-6 Polyethylene Glycol 17 gm 03/04/19 22:15 03/09/19 09:57 Miralax (For Daily Use) - PO Not Given BID [facility] Senna/Docusate Sodium 1 tablet 03/06/19 14:00 03/09/19 13:19 Pericolace - PO Not Given TID ARNIE Zolpidem Tartrate 10 mg 03/07/19 21:39 03/08/19 22:41 Ambien - PO 10 mg HS PRN Administration INSOMNIA Home Medications Medication Instructions Recorded Amitriptyline HCl [Elavil -] 50 mg PO HS 01/16/19 Lorazepam 2 mg PO Q4H 01/16/19 Oxycodone HCl 30 mg PO Q8H 01/16/19 Docusate Sodium [Colace -] 100 mg PO BID 30 Days #0 capsule 01/23/19 HYDROmorphone [Dilaudid -] 8 mg PO Q6H 03/04/19 Cyclobenzaprine HCl 1 tab PO TID 03/05/19 Duloxetine HCl [Cymbalta -] 20 mg PO DAILY 03/05/19 Oxycodone HCl/Acetaminophen 1 tab PO Q6H PRN 03/05/19 [Percocet 10-325 mg Tablet] Assessment and plan: Patient is a 58yo female with PMHx of MS, and spinal stenosis with multiple low back surgeries as per patient around 35 , presented with lower back pain, difficulty walking, and R foot drop Patient is on continues bedrest, no ac for possible sx for Monday morning by . # Postlaminectomy syndrome with Lumbar radiculopathy : patient had multiple surgeries. continue pain meds. further care by ortho and anesthesia. Outpatient pain medications are given by Dr Tompkins her pain doctor - MRI of spine arrangements as per Dr. Nuñez. s/p decadron x 1. I- Stopped Reference #: [id number]- lorazapam 2mg PO Q8h, dilaudid 8mg PO q4h prn pain and oxycodone 30mg PO q4h prn pain. has stitches over mid line surgical scar form December. to be addressed by Surgeon by . -Dr. Nuñez to arrange MRI with general anesthesia. # appreciate dr. Leblanc input, suspicion for MS flare , on Bowel regimen continue , increased the doses of the bowel regimen since still constipated. hold heparin sq, as per dr nuñez to hold it for possible sx on Monday , CT myelogram completed, official read pending. is aware of the result. discussed with . Visit type - Emergency Visit Emergency Visit: Yes ED Registration Date: 03/04/19 Care time: The patient presented to the Emergency Department on the above date and was hospitalized for further evaluation of their emergent condition. - New Patient This patient is new to me today: No - Critical Care Critical Care patient: No - Discharge Referral Referred to [facility] Med [facility].C[facility] No
[2019-03-09 16:11] LABS: URINE CRYSTALS NONE SEEN /hpf
[2019-03-09] MEDS: oxyCODONE HCL 5 MG TABLET PO PRN (17:54)
--- NOTE | 2019-03-09 21:34 | PN ---
Progress Note (short form) - Note Progress Note: Pain and weakness persists R LE decrease sensation with general decrease in motor function Hindfoot in fixed equinuus. This encourages kyphosis which is enhancing balance disorder in combination with the paraparetic status CT myelogram completed. Awaiting radiology assessment. PLAN Continue nursing Considering a Tendo Achilles lengthening on Monday If two suspicious stenotic areas in the vertebral canal confirmed by the radiology team will plan on relevant laminectomies Keep npo as from midnight Monday
[2019-03-09] MEDS: ZOLPIDEM TARTRATE 5 MG TABLET PO PRN (21:40)
[2019-03-09] MEDS ORDERED: PT OWN MED DRAWER 7, Y5N ONE (21:44)
[2019-03-09] MEDS: AMITRIPTYLINE HCL 25 MG TABLET (FP) PO SCH (23:13)
[2019-03-10] MEDS: SENNOSIDES/DOCUSATE COMBO (SENNA PLUS) TABLET (UD) PO SCH ×3 (05:16→21:23)
[2019-03-10] MEDS: CYCLOBENZAPRINE HCL 10 MG TABLET (FP) PO SCH ×3 (05:16→21:19)
[2019-03-10] MEDS: LORazepam 1 MG TABLET PO SCH ×3 (05:17→21:23)
[2019-03-10] MEDS: POLYETHYLENE GLYCOL 3350 119 GM BTL PO SCH ×2 (09:34→21:24)
[2019-03-10] MEDS: DULoxetine HCL 20 MG CAPSULE.DR (FP) PO SCH (09:34)
[2019-03-10] MEDS: oxyCODONE HCL 5 MG TABLET PO PRN ×2 (09:37→20:02)
--- NOTE | 2019-03-10 17:57 | PN ---
Progress Note (short form) - Note Progress Note: No new complain. Vital Signs Temperature 98.4 F 03/10/19 14:39 Pulse Rate 90 03/10/19 14:39 Respiratory Rate 14 03/10/19 13:00 Blood Pressure 100/59 L 03/10/19 14:39 O2 Sat by Pulse Oximetry (%) 96 03/10/19 09:00 GENERAL: The patient is awake, alert, and fully oriented. HEAD: Normal with no signs of trauma. EYES: PERRL, extraocular movements intact, sclera anicteric, conjunctiva clear. ENT: Ears normal, oropharynx clear without exudates, moist mucous membranes. NECK: Trachea midline, full range of motion, supple. LUNGS: Breath sounds equal, clear to auscultation bilaterally, no wheezes, no crackles, no accessory muscle use. HEART: Regular rate and rhythm, S1, S2 without murmur, rub or gallop. ABDOMEN: Soft, nontender, nondistended, normoactive bowel sounds, no guarding, no rebound. EXTREMITIES: 2+ pulses, warm, well-perfused, no edema. NEUROLOGICAL/msk exam: per orthopedic Dr. nuñez PSYCH: tearful bc of pain SKIN: Warm, dry, normal turgor. CBCD WBC 7.3 K/mm3 (4.0-10.0) 03/07/19 06:00 RBC 4.16 M/mm3 (3.60-5.2) 03/07/19 06:00 Hgb 12.6 GM/dL (10.7-15.3) 03/07/19 06:00 Hct 38.1 % (32.4-45.2) 03/07/19 06:00 MCV 91.6 fl (80-96) 03/07/19 06:00 MCHC 33.0 g/dl (32.0-36.0) 03/07/19 06:00 RDW 13.7 % (11.6-15.6) 03/07/19 06:00 Plt Count 307 K/MM3 (134-434) 03/07/19 06:00 MPV 8.1 fl (7.5-11.1) 03/07/19 06:00 CMP Sodium 137 mmol/L (136-145) 03/07/19 06:00 Potassium 4.7 mmol/L (3.5-5.1) 03/07/19 06:00 Chloride 100 mmol/L (98-107) 03/07/19 06:00 Carbon Dioxide 34 mmol/L (21-32) H 03/07/19 06:00 Anion Gap 4 MMOL/L (8-16) L 03/07/19 06:00 BUN 11 mg/dL (7-18) 03/07/19 06:00 Creatinine 0.5 mg/dL (0.55-1.3) L 03/07/19 06:00 Creat Clearance w eGFR 127.63 (>60) 03/07/19 06:00 Random Glucose 78 mg/dL (74-106) 03/07/19 06:00 Calcium 9.7 mg/dL (8.5-10.1) 03/07/19 06:00 Total Bilirubin 0.5 mg/dL (0.2-1) 03/07/19 06:00 AST 8 U/L (15-37) L 03/07/19 06:00 ALT 14 U/L (13-61) 03/07/19 06:00 Alkaline Phosphatase 105 U/L (45-117) 03/07/19 06:00 Total Protein 7.4 g/dl (6.4-8.2) 03/07/19 06:00 Albumin 3.5 g/dl (3.4-5.0) 03/07/19 06:00 Current Medications Generic Name Dose Route Start Last Admin Trade Name Freq PRN Reason Stop Dose Admin Acetaminophen 650 mg 03/05/19 16:47 Tylenol - PO Q6H PRN FEVER Amitriptyline HCl 50 mg 03/05/19 22:00 03/09/19 23:13 Elavil - PO 50 mg HS ARNIE Administration Cyclobenzaprine HCl 10 mg 03/05/19 11:36 03/10/19 13:05 Flexeril - PO 10 mg TID ARNIE Administration Diphenhydramine HCl 25 mg 03/07/19 13:09 03/10/19 16:10 Benadryl Injection - IVPUSH 25 mg Q6H PRN Administration FOR ITCHING Duloxetine HCl 20 mg 03/05/19 10:00 03/10/19 09:34 Cymbalta - PO 20 mg DAILY ARNIE Administration Hydromorphone HCl 8 mg 03/10/19 16:07 03/10/19 17:35 Dilaudid - PO 8 mg Q4H PRN Administration PAIN LEVEL 7 - 10 Lorazepam 2 mg 03/05/19 14:00 03/10/19 13:05 Ativan - PO 2 mg TID ARNIE Administration Oxycodone HCl 30 mg 03/05/19 15:12 03/10/19 09:37 Roxicodone - PO 30 mg Q8H PRN Administration PAIN LEVEL 4-6 Polyethylene Glycol 17 gm 03/04/19 22:15 03/10/19 09:34 Miralax (For Daily Use) - PO Not Given BID ARNIE Senna/Docusate Sodium 1 tablet 03/06/19 14:00 03/10/19 13:06 Pericolace - PO Not Given TID ARNIE Zolpidem Tartrate 10 mg 03/07/19 21:39 03/09/19 21:40 Ambien - PO 10 mg HS PRN Administration INSOMNIA Home Medications Medication Instructions Recorded RX: Amitriptyline HCl [Elavil -] 50 mg PO HS 01/16/19 RX: Lorazepam 2 mg PO Q4H 01/16/19 RX: Oxycodone HCl 30 mg PO Q8H 01/16/19 RX: Docusate Sodium [Colace -] 100 mg PO BID 30 Days #0 capsule 01/23/19 HYDROmorphone [Dilaudid -] 8 mg PO Q6H 03/04/19 Duloxetine HCl [Cymbalta -] 20 mg PO DAILY 03/05/19 Oxycodone HCl/Acetaminophen 1 tab PO Q6H PRN 03/05/19 [Percocet 10-325 mg Tablet] RX: Cyclobenzaprine HCl 1 tab PO TID 03/05/19 Assessment and plan: Patient is a 58yo female with PMHx of MS, and spinal stenosis with multiple low back surgeries as per patient around 35 , presented with lower back pain, difficulty walking, and R foot drop Patient is on continues bedrest, no ac, for possible sx in am as per # S/p Ct myelogram , official read is pending. npo after midnight. # Postlaminectomy syndrome with Lumbar radiculopathy : patient had multiple surgeries. continue pain meds. further care by ortho and anesthesia. Outpatient pain medications are given by Dr Tompkins her pain doctor I- Stopped Reference #: [id number]- lorazapam 2mg PO Q8h, dilaudid 8mg PO q4h prn pain and oxycodone 30mg PO q4h prn pain. has stitches over mid line surgical scar form December. to be addressed by Surgeon by . # appreciate dr. Leblanc input, suspicion for MS flare , on Bowel regimen continue , increased the doses of the bowel regimen since still constipated. hold heparin sq, as per dr nuñez to hold it for possible sx on Monday , CT myelogram completed, official read pending. is aware of the result. Visit type - Emergency Visit Emergency Visit: Yes ED Registration Date: 03/04/19 Care time: The patient presented to the Emergency Department on the above date and was hospitalized for further evaluation of their emergent condition. - New Patient This patient is new to me today: No - Critical Care Critical Care patient: No - Discharge Referral Referred to [facility] Med [facility]C.: No
[2019-03-10] MEDS: AMITRIPTYLINE HCL 25 MG TABLET (FP) PO SCH (21:20)
[2019-03-10] MEDS: ZOLPIDEM TARTRATE 5 MG TABLET PO PRN (21:29)
[2019-03-11] MEDS: CYCLOBENZAPRINE HCL 10 MG TABLET (FP) PO SCH ×3 (05:52→21:27)
[2019-03-11] MEDS: LORazepam 1 MG TABLET PO SCH ×3 (06:02→21:27)
[2019-03-11] MEDS: SENNOSIDES/DOCUSATE COMBO (SENNA PLUS) TABLET (UD) PO SCH ×3 (06:16→21:27)
[2019-03-11] MEDS: oxyCODONE HCL 5 MG TABLET PO PRN (09:36)
[2019-03-11] MEDS: POLYETHYLENE GLYCOL 3350 119 GM BTL PO SCH ×2 (09:38→21:34)
[2019-03-11] MEDS: DULoxetine HCL 20 MG CAPSULE.DR (FP) PO SCH (09:38)
--- NOTE | 2019-03-11 12:36 | PN ---
Progress Note (short form) - Note Progress Note: 58F well known to [facility], with complex past spine history (status post cervical, thoracic, lumbar-sacral fusion). Pt. sustained mechanical fall at home and was admitted to [facility] with clinical concern for either new fracture of spinal fusion versus new-onset neurological compromise. Pain moderately controlled. Pt. complains of: 1. Thoracolumbar back pain; instability pattern; pain on movement in bed 2. Left upper mid and lower abdominal pain; abdominal muscle spasm Pt. remains immobilized and bedridden. Pt. denies recent history of chest pain/shortness of breath/nausea/vomiting/ chills/sweats. (+) Voiding; urinary incontinence; (+) Flatus; (+)BM - bowel control preserved. PE: AAO x 3. NAD. Afebrile. Full Spine Exam: Wounds pristine; clean/dry/intact. Nylon sutures removed. No clinical concern for rell-incisional inflammation. B/L UE M: C5-T1 5/5. B/L UE S: C5-T1 2/2. LLE M: L2-S1 3/5. LLE S: L2-S1 1/2. RLE M: L2-S1 1-2/5. RLE S: L2-S1 1/2. 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 CT Myelogram ThoracoLumbar Spine: Vertebral canal and theca: normal; no occlusion; not compromised. Extensive thoracolumbar fusion inspected. No fracture seen. A/P: 58F s/p new spine injury presents with acute neurological decline and no clinical concern for new thoraco-lumbar spine injury. This clinical picture is the end stage of: 1. Previous multiple corrections; front and back for stenosis and kyphosis patient brought in to the hospital. 2. spinal cord dysfunction; diagnosed multiple sclerosis; progressively worsening. -No plan for orthopaedic surgical intervention at this time. -Discharge planning: discharge to neuromuscular rehabilitation facility to perform extensive bilateral hip, knee, and ankle contracture stretching. -Once contractures have been stretched out, right ankle and hindfoot will be re- assessed for non-surgical versus surgical management. -Pain control. -DVT PPx: -Mechanical: MIGUEL ANGEL's, SCD's. -Incentive spirometry. -WBAT B/L UE; WBAT B/L LE with maximum assistance at all times. -PT/OT/Rehab. -Care per primary medical hospitalist team. -Will follow. Shayan Marina MD (Orthopaedic Surgery).
--- NOTE | 2019-03-11 14:42 | PN ---
Teaching Attending Note Name of Resident: Jennie Conrad ATTENDING PHYSICIAN STATEMENT I saw and evaluated the patient. I reviewed the resident's note and discussed the case with the resident. I agree with the resident's findings and plan as documented. SUBJECTIVE: Patient is comfortable, as per Dr. Nuñez , patient needs to go to rehab. OBJECTIVE: Vital Signs Temperature 98.5 F 03/11/19 09:19 Pulse Rate 84 03/11/19 09:19 Respiratory Rate 20 03/11/19 09:19 Blood Pressure 119/69 03/11/19 09:19 O2 Sat by Pulse Oximetry (%) 96 03/11/19 10:00 GENERAL: The patient is awake, alert, and fully oriented. HEAD: Normal with no signs of trauma. EYES: PERRL, extraocular movements intact, sclera anicteric, conjunctiva clear. ENT: Ears normal, oropharynx clear without exudates, moist mucous membranes. NECK: Trachea midline, full range of motion, supple. LUNGS: Breath sounds equal, clear to auscultation bilaterally, no wheezes, no crackles, no accessory muscle use. HEART: Regular rate and rhythm, S1, S2 without murmur, rub or gallop. ABDOMEN: Soft, nontender, nondistended, normoactive bowel sounds, no guarding, no rebound. EXTREMITIES: 2+ pulses, warm, well-perfused, no edema. NEUROLOGICAL/msk exam: per orthopedic Dr. nuñez SKIN: Warm, dry, normal turgor. CBCD WBC 7.3 K/mm3 (4.0-10.0) 03/07/19 06:00 RBC 4.16 M/mm3 (3.60-5.2) 03/07/19 06:00 Hgb 12.6 GM/dL (10.7-15.3) 03/07/19 06:00 Hct 38.1 % (32.4-45.2) 03/07/19 06:00 MCV 91.6 fl (80-96) 03/07/19 06:00 MCHC 33.0 g/dl (32.0-36.0) 03/07/19 06:00 RDW 13.7 % (11.6-15.6) 03/07/19 06:00 Plt Count 307 K/MM3 (134-434) 03/07/19 06:00 MPV 8.1 fl (7.5-11.1) 03/07/19 06:00 CMP Sodium 137 mmol/L (136-145) 03/07/19 06:00 Potassium 4.7 mmol/L (3.5-5.1) 03/07/19 06:00 Chloride 100 mmol/L (98-107) 03/07/19 06:00 Carbon Dioxide 34 mmol/L (21-32) H 03/07/19 06:00 Anion Gap 4 MMOL/L (8-16) L 03/07/19 06:00 BUN 11 mg/dL (7-18) 03/07/19 06:00 Creatinine 0.5 mg/dL (0.55-1.3) L 03/07/19 06:00 Creat Clearance w eGFR 127.63 (>60) 03/07/19 06:00 Random Glucose 78 mg/dL (74-106) 03/07/19 06:00 Calcium 9.7 mg/dL (8.5-10.1) 03/07/19 06:00 Total Bilirubin 0.5 mg/dL (0.2-1) 03/07/19 06:00 AST 8 U/L (15-37) L 03/07/19 06:00 ALT 14 U/L (13-61) 03/07/19 06:00 Alkaline Phosphatase 105 U/L (45-117) 03/07/19 06:00 Total Protein 7.4 g/dl (6.4-8.2) 03/07/19 06:00 Albumin 3.5 g/dl (3.4-5.0) 03/07/19 06:00 Current Medications Generic Name Dose Route Start Last Admin Trade Name Freq PRN Reason Stop Dose Admin Acetaminophen 650 mg 03/05/19 16:47 Tylenol - PO Q6H PRN FEVER Amitriptyline HCl 50 mg 03/05/19 22:00 03/10/19 21:20 Elavil - PO 50 mg HS ARNIE Administration Cyclobenzaprine HCl 10 mg 03/05/19 11:36 03/11/19 14:34 Flexeril - PO 10 mg TID ARNIE Administration Diphenhydramine HCl 25 mg 03/07/19 13:09 03/11/19 11:43 Benadryl Injection - IVPUSH 25 mg Q6H PRN Administration FOR ITCHING Duloxetine HCl 20 mg 03/05/19 10:00 03/11/19 09:38 Cymbalta - PO 20 mg DAILY ARNIE Administration Hydromorphone HCl 8 mg 03/10/19 16:07 03/11/19 04:08 Dilaudid - PO 8 mg Q4H PRN Administration PAIN LEVEL 7 - 10 Lorazepam 2 mg 03/05/19 14:00 03/11/19 14:34 Ativan - PO 2 mg TID ARNIE Administration Oxycodone HCl 30 mg 03/05/19 15:12 03/11/19 09:36 Roxicodone - PO 30 mg Q8H PRN Administration PAIN LEVEL 4-6 Polyethylene Glycol 17 gm 03/04/19 22:15 03/11/19 09:38 Miralax (For Daily Use) - PO Not Given BID ARNIE Senna/Docusate Sodium 1 tablet 03/06/19 14:00 03/11/19 14:33 Pericolace - PO 1 tablet TID ARNIE Administration Zolpidem Tartrate 10 mg 03/07/19 21:39 03/10/19 21:29 Ambien - PO 10 mg HS PRN Administration INSOMNIA Home Medications Medication Instructions Recorded Amitriptyline HCl [Elavil -] 50 mg PO HS 01/16/19 Oxycodone HCl 30 mg PO Q8H 01/16/19 HYDROmorphone [Dilaudid -] 8 mg PO Q6H 03/04/19 Cyclobenzaprine HCl 1 tab PO TID 03/05/19 Duloxetine HCl [Cymbalta -] 20 mg PO DAILY 03/05/19 Oxycodone HCl/Acetaminophen 1 tab PO Q6H PRN 03/05/19 [Percocet 10-325 mg Tablet] LORazepam [Ativan] 2 mg PO TID tablet MDD 6mg 03/11/19 Polyethylene Glycol 3350 [Miralax 17 gm PO BID bottle 03/11/19 119 gm Btl -] Sennosides/Docusate Sodium 1 tablet PO TID tablet 03/11/19 [Pericolace -] ASSESSMENT AND PLAN: Patient is a 58yo female with PMHx of MS, and spinal stenosis with multiple low back surgeries as per patient around 35 , presented with lower back pain, difficulty walking, and R foot drop Patient is on continues bed rest, as per Dr. Nuñez , patient needs rehab. patient agrees to go to rehab. as per ortho, no need for sx after reviewing the result of myelogram with radiology. # S/p Ct myelogram. Official read is not in the computer, dr. nuñez was able to discuss the results with the patient. As per discussed with family in detail to go to rehab. # Postlaminectomy syndrome with Lumbar radiculopathy : patient had multiple surgeries. continue pain meds. further care by ortho and anesthesia. Outpatient pain medications are given by Dr Tompkins her pain doctor. I- Stopped Reference #: [id number]- lorazapam 2mg PO Q8h, dilaudid 8mg PO q4h prn pain and oxycodone 30mg PO q4h prn pain. # appreciate dr. Leblanc input, suspicious for MS flare , on Bowel regimen continue , increased the doses of the bowel regimen since still constipated. lovenox 40mg sq
--- NOTE | 2019-03-11 16:54 | PN ---
Physical Exam: SUBJECTIVE: Patient seen and examined at bedside this morning. No acute events overnight. OBJECTIVE: Vital Signs Temperature 98.5 F 03/11/19 09:19 Pulse Rate 84 03/11/19 09:19 Respiratory Rate 20 03/11/19 09:19 Blood Pressure 119/69 03/11/19 09:19 O2 Sat by Pulse Oximetry (%) 96 03/11/19 10:00 GENERAL: The patient is awake, alert, and fully oriented, in no acute distress. HEAD: Normal with no signs of trauma. EYES: PERRLA, EOMI, sclera anicteric, conjunctiva clear. NECK: Trachea midline, full range of motion, supple. LUNGS: Breath sounds equal, clear to auscultation bilaterally. HEART: Regular rate and rhythm, S1, S2 without murmur, rub or gallop. ABDOMEN: Soft, nontender, nondistended, normoactive bowel sounds. EXTREMITIES: 2+ pulses, warm, well-perfused, no edema. NEUROLOGICAL: Cranial nerves II through XII grossly intact. Normal speech, walks with a cane. Decreased sensation of b/l LE, Motor strength 3/5 RLE/LLE and 4/5 RUE/LUE. PSYCH: Normal mood, normal affect. SKIN: Warm, dry, normal turgor, no rashes or lesions noted Active Medications Generic Name Dose Route Start Last Admin Trade Name Freq PRN Reason Stop Dose Admin Acetaminophen 650 mg 03/05/19 16:47 Tylenol - PO Q6H PRN FEVER Amitriptyline HCl 50 mg 03/05/19 22:00 03/10/19 21:20 Elavil - PO 50 mg HS ARNIE Administration Cyclobenzaprine HCl 10 mg 03/05/19 11:36 03/11/19 14:34 Flexeril - PO 10 mg TID ARNIE Administration Diphenhydramine HCl 25 mg 03/07/19 13:09 03/11/19 11:43 Benadryl Injection - IVPUSH 25 mg Q6H PRN Administration FOR ITCHING Duloxetine HCl 20 mg 03/05/19 10:00 03/11/19 09:38 Cymbalta - PO 20 mg DAILY ARNIE Administration Hydromorphone HCl 8 mg 03/10/19 16:07 03/11/19 15:27 Dilaudid - PO 8 mg Q4H PRN Administration PAIN LEVEL 7 - 10 Lorazepam 2 mg 03/05/19 14:00 03/11/19 14:34 Ativan - PO 2 mg TID ARNIE Administration Oxycodone HCl 30 mg 03/05/19 15:12 03/11/19 09:36 Roxicodone - PO 30 mg Q8H PRN Administration PAIN LEVEL 4-6 Polyethylene Glycol 17 gm 03/04/19 22:15 03/11/19 09:38 Miralax (For Daily Use) - PO Not Given BID ARNIE Senna/Docusate Sodium 1 tablet 03/06/19 14:00 03/11/19 14:33 Pericolace - PO 1 tablet TID ARNIE Administration Zolpidem Tartrate 10 mg 03/07/19 21:39 03/10/19 21:29 Ambien - PO 10 mg HS PRN Administration INSOMNIA ASSESSMENT/PLAN: Patient is a 58 year old female with past medical history of untreated MS, lumbar stenosis, s/p reported 33 spinal surgeries, presented to the ED due to intractable back pain, with progressive LE weakness and inability to ambulate. #Low back pain and weakness -Ortho consulted (Dr. Marina). Recommendations appreciated: -no plan for orthopedic surgical intervention at this time. -can be discharged to neuromuscular rehabilitation facility to perform extensiver bilateral hip, knee and ankle contracture stretching. -once stretched out, will be re-assessed for non-surgical vs surgical management. -WBAT bilateral LE with maximum assistance at all times. -PT/OT/rehab -Incentive spirometry -Pain management (Dr. Morris) consulted. Recs appreciated. -Neurology (Dr. Leblanc) consulted. Recommendations appreciated. -Unlikely active MS, no urgency to consider disease modifying agent, to follow up as outpatient -Will continue home medications for pain: Oxycodone 30mg q8, Dilaudid 8mg q8 PRN and flexeril -Ativan 2mg PO TID -Miralax, pericolace for constipation #FEN -Not on any standing fluids -Electrolytes wnl -Regular diet #Prophylaxis -Heparin 5000 units sq tid #Disposition -full code -med surg -likely for discharge tomorrow to SNF for rehab Visit type - Emergency Visit Emergency Visit: Yes ED Registration Date: 03/04/19 Care time: The patient presented to the Emergency Department on the above date and was hospitalized for further evaluation of their emergent condition. - New Patient This patient is new to me today: No - Critical Care Critical Care patient: No
[2019-03-11] MEDS ORDERED: PT OWN MED DRAWER 7, Y5N ONE (21:18)
[2019-03-11] MEDS: AMITRIPTYLINE HCL 25 MG TABLET (FP) PO SCH (21:27)
[2019-03-11] MEDS: ZOLPIDEM TARTRATE 5 MG TABLET PO PRN (21:27)
[2019-03-12] MEDS: oxyCODONE HCL 5 MG TABLET PO PRN (04:44)
[2019-03-12] MEDS: CYCLOBENZAPRINE HCL 10 MG TABLET (FP) PO SCH (05:53)
[2019-03-12] MEDS: LORazepam 1 MG TABLET PO SCH (05:53)
[2019-03-12] MEDS: SENNOSIDES/DOCUSATE COMBO (SENNA PLUS) TABLET (UD) PO SCH (05:53)
--- NOTE | 2019-03-12 08:38 | PN ---
Teaching Attending Note Name of Resident: Jennie Conrad ATTENDING PHYSICIAN STATEMENT I saw and evaluated the patient. I reviewed the resident's note and discussed the case with the resident. I agree with the resident's findings and plan as documented. SUBJECTIVE: Patient is lying in bed, no new changes, as per patient if she gets accepted to rehab. would like to go to rehab. if not insists on going home with outpatient physical therapy. OBJECTIVE: Vital Signs Temperature 98.4 F 03/12/19 06:47 Pulse Rate 110 H 03/12/19 06:47 Respiratory Rate 20 03/12/19 06:47 Blood Pressure 113/87 03/12/19 06:47 O2 Sat by Pulse Oximetry (%) 96 03/11/19 10:00 GENERAL: The patient is awake, alert, and fully oriented. HEAD: Normal with no signs of trauma. EYES: PERRL, extraocular movements intact, sclera anicteric, conjunctiva clear. ENT: Ears normal, oropharynx clear without exudates, moist mucous membranes. NECK: Trachea midline, full range of motion, supple. LUNGS: Breath sounds equal, clear to auscultation bilaterally, no wheezes, no crackles, no accessory muscle use. HEART: Regular rate and rhythm, S1, S2 without murmur, rub or gallop. ABDOMEN: Soft, nontender, nondistended, normoactive bowel sounds, no guarding, no rebound. EXTREMITIES: 2+ pulses, warm, well-perfused, no edema. NEUROLOGICAL/msk exam: per orthopedic Dr. nuñez PSYCH: tearful bc of pain SKIN: Warm, dry, normal turgor. CBCD WBC 7.3 K/mm3 (4.0-10.0) 03/07/19 06:00 RBC 4.16 M/mm3 (3.60-5.2) 03/07/19 06:00 Hgb 12.6 GM/dL (10.7-15.3) 03/07/19 06:00 Hct 38.1 % (32.4-45.2) 03/07/19 06:00 MCV 91.6 fl (80-96) 03/07/19 06:00 MCHC 33.0 g/dl (32.0-36.0) 03/07/19 06:00 RDW 13.7 % (11.6-15.6) 03/07/19 06:00 Plt Count 307 K/MM3 (134-434) 03/07/19 06:00 MPV 8.1 fl (7.5-11.1) 03/07/19 06:00 CMP Sodium 137 mmol/L (136-145) 03/07/19 06:00 Potassium 4.7 mmol/L (3.5-5.1) 03/07/19 06:00 Chloride 100 mmol/L (98-107) 03/07/19 06:00 Carbon Dioxide 34 mmol/L (21-32) H 03/07/19 06:00 Anion Gap 4 MMOL/L (8-16) L 03/07/19 06:00 BUN 11 mg/dL (7-18) 03/07/19 06:00 Creatinine 0.5 mg/dL (0.55-1.3) L 03/07/19 06:00 Creat Clearance w eGFR 127.63 (>60) 03/07/19 06:00 Random Glucose 78 mg/dL (74-106) 03/07/19 06:00 Calcium 9.7 mg/dL (8.5-10.1) 03/07/19 06:00 Total Bilirubin 0.5 mg/dL (0.2-1) 03/07/19 06:00 AST 8 U/L (15-37) L 03/07/19 06:00 ALT 14 U/L (13-61) 03/07/19 06:00 Alkaline Phosphatase 105 U/L (45-117) 03/07/19 06:00 Total Protein 7.4 g/dl (6.4-8.2) 03/07/19 06:00 Albumin 3.5 g/dl (3.4-5.0) 03/07/19 06:00 Current Medications Generic Name Dose Route Start Last Admin Trade Name Freq PRN Reason Stop Dose Admin Acetaminophen 650 mg 03/05/19 16:47 Tylenol - PO Q6H PRN FEVER Amitriptyline HCl 50 mg 03/05/19 22:00 03/11/19 21:27 Elavil - PO 50 mg HS ARNIE Administration Cyclobenzaprine HCl 10 mg 03/05/19 11:36 03/12/19 05:53 Flexeril - PO 10 mg TID ARNIE Administration Diphenhydramine HCl 25 mg 03/07/19 13:09 03/11/19 18:48 Benadryl Injection - IVPUSH 25 mg Q6H PRN Administration FOR ITCHING Duloxetine HCl 20 mg 03/05/19 10:00 03/11/19 09:38 Cymbalta - PO 20 mg DAILY ARNIE Administration Hydromorphone HCl 8 mg 03/10/19 16:07 03/11/19 19:55 Dilaudid - PO 8 mg Q4H PRN Administration PAIN LEVEL 7 - 10 Lorazepam 2 mg 03/05/19 14:00 03/12/19 05:53 Ativan - PO 2 mg TID ARNIE Administration Oxycodone HCl 30 mg 03/05/19 15:12 03/12/19 04:44 Roxicodone - PO 30 mg Q8H PRN Administration PAIN LEVEL 4-6 Polyethylene Glycol 17 gm 03/04/19 22:15 03/11/19 21:34 Miralax (For Daily Use) - PO Not Given BID ARNIE Senna/Docusate Sodium 1 tablet 03/06/19 14:00 03/12/19 05:53 Pericolace - PO 1 tablet TID ARNIE Administration Zolpidem Tartrate 10 mg 03/07/19 21:39 03/11/19 21:27 Ambien - PO 10 mg HS PRN Administration INSOMNIA Home Medications Medication Instructions Recorded Amitriptyline HCl [Elavil -] 50 mg PO HS 01/16/19 Oxycodone HCl 30 mg PO Q8H 01/16/19 HYDROmorphone [Dilaudid -] 8 mg PO Q6H 03/04/19 Cyclobenzaprine HCl 1 tab PO TID 03/05/19 Duloxetine HCl [Cymbalta -] 20 mg PO DAILY 03/05/19 Oxycodone HCl/Acetaminophen 1 tab PO Q6H PRN 03/05/19 [Percocet 10-325 mg Tablet] Enoxaparin [Lovenox -] 40 mg SQ DAILY #1 disp.syrin 03/11/19 LORazepam [Ativan] 2 mg PO TID tablet MDD 6mg 03/11/19 Polyethylene Glycol 3350 [Miralax 17 gm PO BID bottle 03/11/19 119 gm Btl -] Sennosides/Docusate Sodium 1 tablet PO TID tablet 03/11/19 [Pericolace -] ASSESSMENT AND PLAN: Patient is a 58yo female with PMHx of MS, and spinal stenosis with multiple low back surgeries as per patient around 35 , presented with lower back pain, with difficulty walking, and R foot drop. as per patient came in for further w/u. Patient is on continues bed rest, as per Dr. Nuñez , patient needs rehab, patient is willing to go to rehab. if is accepted. otherwise patient would like to go home. as per ortho, no need for sx after reviewing the result of myelogram with radiology. Also information was given to in terms of outpatient rehab, and was informed that the patient needs a Rx for physical therapy for further instructions. and phone [phone] for aquilino Badillo. # S/p Ct myelogram. dr. nuñez was able to discuss the results with the patient and no further sx is needed as per As per discussed with family in detail to go to rehab. outpatient or inpatient. # Postlaminectomy syndrome with Lumbar radiculopathy : patient had multiple surgeries. continue pain meds. further care by ortho and anesthesia. Outpatient pain medications are given by Dr Tompkins her pain doctor. I- Stopped Reference #: [id number]- lorazapam 2mg PO Q8h, dilaudid 8mg PO q4h prn pain and oxycodone 30mg PO q4h prn pain. # appreciate dr. Leblanc input, suspicious for MS flare , on Bowel regimen continue , increased the doses of the bowel regimen since still constipated. lovenox 40mg sq
[2019-03-12] MEDS: DULoxetine HCL 20 MG CAPSULE.DR (FP) PO SCH (09:43)
[2019-03-12] MEDS: POLYETHYLENE GLYCOL 3350 119 GM BTL PO SCH (09:57)
[2019-03-12 10:16] VITALS: BP 110/69; PULSE 88; TEMP 99.7
--- NOTE | 2019-03-12 14:30 | DS ---
Physical Exam: SUBJECTIVE: Patient seen and examined at bedside this morning. No acute events overnight. OBJECTIVE: Vital Signs Temperature 99.7 F H 03/12/19 10:00 Pulse Rate 88 03/12/19 10:00 Respiratory Rate 20 03/12/19 10:00 Blood Pressure 110/69 03/12/19 10:00 O2 Sat by Pulse Oximetry (%) 96 03/11/19 10:00 PHYSICAL EXAM GENERAL: The patient is awake, alert, and fully oriented, in no acute distress. HEAD: Normal with no signs of trauma. EYES: PERRLA, EOMI, sclera anicteric, conjunctiva clear. NECK: Trachea midline, full range of motion, supple. LUNGS: Breath sounds equal, clear to auscultation bilaterally. HEART: Regular rate and rhythm, S1, S2 without murmur, rub or gallop. ABDOMEN: Soft, nontender, nondistended, normoactive bowel sounds. EXTREMITIES: 2+ pulses, warm, well-perfused, no edema. NEUROLOGICAL: Cranial nerves II through XII grossly intact. Normal speech, walks with a cane. Decreased sensation of b/l LE, Motor strength 3/5 RLE/LLE and 4/5 RUE/LUE. PSYCH: Normal mood, normal affect. SKIN: Warm, dry, normal turgor, no rashes or lesions noted LABS CBC, BMP 03/07/19 06:00 03/07/19 06:00 Thoracic/Lumbar CT myelogram - No CT evidence of fracture or significant canal compromise. HOSPITAL COURSE: Date of Admission:03/04/19 Date of Discharge: 03/12/19 Patient is a 58 year old female with past medical history of untreated MS, lumbar stenosis, s/p reported 33 spinal surgeries, presented to the ED due to intractable back pain, with progressive LE weakness and inability to ambulate. Neurology, pain management and Orthopedic consulted. CT myelogram was done. Patient was instructed to continue physical therapy for contracture stretching and to follow-up with Ortho for re-assessment for non-surgical vs surgical management. Patient was discharged with instructions to follow up with ortho, PCP and neurology for further care of MS. Minutes to complete discharge: 45 Discharge Summary Reason For Visit: STATUS POST HARDWARE REMOVAL, RIGHT FOOT DROP Condition: Stable - Instructions Diet, Activity, Other Instructions: Your visit You were admitted to the hospital because you had severe back pain and leg weakness. You were evaluated by orthopedic and pain management. No surgical interventions are indicated at this time. It is recommended that you go to physical therapy. Please follow-up with Dr. Marina upon completion of rehab for further management. You were also evaluated by the neurologist for your multiple sclerosis (MS). It is recommended that you follow up with Dr. Leblanc for further work-up and management of your MS. Medications Continue your home medications. Follow-up Please follow-up with your primary care physician within 1 week. Please follow-up with the orthopedic surgeon (Dr. Marina). Please call his office to schedule an appointment. Please follow-up with the neurologist (Dr. Leblanc) for further work-up of MS. Additional info Call 911 or go to the ED if with any worsening weakness, numbness, fever, chills , headache, chest pain, shortness of breath, belly pain, bloody stools or any new concerns noted. Referrals: Manny Leblanc MD [Staff Physician] - 1 Month Shayan Marina MD [Staff Physician] - 1 Week Disposition: HOME - Home Medications Comprehensive Discharge Medication List: Ambulatory Orders Amitriptyline HCl [Elavil -] 50 mg PO HS 01/16/19 Oxycodone HCl 30 mg PO Q8H 01/16/19 HYDROmorphone [Dilaudid -] 8 mg PO Q6H 03/04/19 Cyclobenzaprine HCl 1 tab PO TID 03/05/19 Duloxetine HCl [Cymbalta -] 20 mg PO DAILY 03/05/19 Oxycodone HCl/Acetaminophen [Percocet 10-325 mg Tablet] 1 tab PO Q6H PRN LORazepam [Ativan] 2 mg PO TID tablet MDD 6mg 03/11/19 Polyethylene Glycol 3350 [Miralax 119 gm Btl -] 17 gm PO BID bottle 03/11/19 Sennosides/Docusate Sodium [Pericolace -] 1 tablet PO TID tablet 03/11/19 This patient is new to me today: No Emergency Visit: Yes ED Registration Date: 03/04/19 Care time: The patient presented to the Emergency Department on the above date and was hospitalized for further evaluation of their emergent condition. Critical Care patient: No - Discharge Referral Referred to [facility] No
== END 2019-03-12 14:11 | disposition home or self-care (01) | DRG 552 ==
LOC: SUPCPDRO 14:54 → JER 14:54 → JERBED 19:35 → J6S 03-05 04:02
PROVIDERS: ADMIT Internal Medicine; ATTEND Internal Medicine
DX: M54.16 Radiculopathy, lumbar region (principal); M96.1 Postlaminectomy syndrome, not elsewhere classified; G35 Multiple sclerosis; M21.371 Foot drop, right foot; W19.XXXA Unspecified fall, initial encounter; R32 Unspecified urinary incontinence
CPT/HCPCS: 36415; 72128-TC; 72131-TC; 72255-TC-FY; 72265-TC-FY; 80048; 80053; 81003; 83735; 84100; 85025; 85610; 86850; 86900; 86901; 93005; 93010; 97116-GP; 97162-GP; 99283-25; J1644

== ENCOUNTER 2019-09-09 06:37 | Inpatient (IN) | payer OTHER, MEDICARE ==
[2019-09-09] MEDS ORDERED: HEPARIN NA (PORCINE) 5,000 UNITS/ML 1ML VIAL ONE (07:23)
[2019-09-09] MEDS ORDERED: BUPIVACAINE LIPOSOME/PF (EXPAREL) 266 MG/20 ML VIAL ONE (07:23)
[2019-09-09] MEDS ORDERED: BENZOIN TINCTURE SWABSTICK TP ONE (07:24)
[2019-09-09] MEDS ORDERED: BUPIVACAINE HCL/PF 0.25% (2.5MG/ML) 10 ML VIAL ONE (07:24)
[2019-09-09] MEDS ORDERED: fentaNYL CITRATE 250 MCG/5 ML VIAL ONE ×2 (07:46)
[2019-09-09] MEDS ORDERED: SUCCINYLCHOLINE CHLORIDE 200 MG/10 ML SYRINGE ONE ×2 (07:47→12:06)
[2019-09-09] MEDS ORDERED: PROPOFOL 20 ML ONE ×12 (07:47→14:39)
[2019-09-09] MEDS ORDERED: KETAMINE HCL 200 MG/20 ML VIAL ONE (07:47)
[2019-09-09] MEDS ORDERED: MIDAZOLAM HCL 2 MG/2 ML SINGLE DOSE VIAL ONE ×5 (07:47)
[2019-09-09] MEDS ORDERED: THROMBIN (BOVINE) 5,000 UNIT VIAL TP ONE ×2 (08:15→12:32)
--- NOTE | 2019-09-09 08:41 | PN ---
Progress Note (short form) - Note Progress Note: 59F p/w complicated past orthopaedic spine & neurological history. Patient well known to me. 1989's: Thoracolumar fusion (anterior/posterior) - Dr. Sher Vanessa ([facility] ). ~1997: Revision thoracolumbar decompression and fusion - hi ([facility]). Early 1999's: Anterior/posterior cervical spinal surgery - Dr. Sher Roach ( [facility]); this complcated by surgical site infection. ~2008: Thoracolumbar pseudarthrosis and broken spinal hardware, requiring revision thoracolumbar instrumented fusion - hi ([facility]); this complcated by surgical site infection; multiple I&D's w/wound vac therapy - [facility]. ~2010: Thoracolumbar pseudarthrosis and broken spinal hardware, requiring revision thoracolumbar instrumented fusion - hi ([facility]). Throughout these procedures, patient maintained function as a domestic & community walker. ~2016: Patient poorly suffered a neurological deterioration with decline in functional independence. This was complicated by complex global spinal myofascial pain syndrome. ~2018: Removal of thoracolumbar hardware (due to painfully symptomatic hardware bursitis) and conservative posterior decompression (due to recurrent spinal stenosis and neurological decline). Patient has subsequently progressively deteriorated in function independence, now chronically bedbound due to weakness and exacerbation of myofascial pain complex. Pt. lives in [facility] and has been comprehensively treated by a neurology team with rehab medicine service there. Primary neurology service has diagnosed patient with underlying multiple sclerosis and associated mechanical thoracolumbar instability. Today, pt. denies recent history of headaches, chest pain, shortness of breath, nausea, vomiting, chills, and sweats. Voiding: (+); Flatus: (+); BM: (+). Exam: AAO x 3, NAD. ThoracoLumbar Spine: Kyphoscoliosis. Diffuse midline & paracentral TTP. (+) Significant induration of paraspinal musculature. RLE Motor: All muscles supplying hip, knee, ankle, hindfoot/midfoot/forefoot 3+/5. LLE Motor: All muscles supplying hip, knee, ankle, hindfoot/midfoot/forefoot 3/5. B/L LE Sensory: L2-S1 1/2. MRI C/T/L Spine: Poor quality imaging due to motion artifact and extent of spinal deformity. C7-T3 spinal stenosis. No concerning stenosis elsewhere. Please refer to radiology report for further details. Assessment: 59F p/w complicated past orthopaedic spine & neurological history includin. Paraparesis (bilateral lower extremities) 2. Sensation 3. Bladder: Stress incontinence; due to inability to ambulate to toilet in a timely fashion. 4. Complex spine pain secondary to: a) mechanical, axial instability and b) myofascial decompensation. 5. 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 6. Opioid addiction. 7. General medical decline and deconditioning due to loss of functional independence and inability to attend to personal hygiene and routine activities of daily living. 8. Anxiety & depression. Plan: 1. T1, T2 laminectomies with in situ posterolateral arthrodesis. 2. T5-pelvis posterior instrumented spinal fusion. 3. Risks, benefits, and alternatives (detailed in operative report) discussed with and understood by patient and her family. Patient wishes to pursue the above listed surgical plan. 4. ICU care post-op. 5. Post-op consult services needed: Pain management (Taras Khalil), neurology ( Srikanth Bhakta), [facility] (medical hospitalist). 6. Following inpatient admission, patient will require admission to advanced spine rehabilitation facility ([facility]). Will follow. SEVERITY OF ILLNESS: 4. Shayan Marina MD (Orthopaedic Surgery).
[2019-09-09] MEDS ORDERED: ceFAZolin SODIUM 1 GM VIAL ONE ×2 (10:18→14:47)
[2019-09-09] MEDS ORDERED: VANCOMYCIN 1,000 MG VIAL (RESTRICTED TO ID ONLY) ONE (10:19)
[2019-09-09] MEDS ORDERED: PHENYLEPHRINE HCL 10 MG/1 ML SINGLE DOSE VIAL ONE (10:37)
[2019-09-09] MEDS ORDERED: HYDROmorphone HCl 2 MG/ML VIAL ONE ×3 (10:38→16:03)
[2019-09-09] MEDS ORDERED: EPHEDRINE SULFATE/0.9% NACL/PF 50 MG/10 ML SYRINGE NR ONE (10:39)
[2019-09-09] MEDS ORDERED: EPINEPHrine 1:10,000 (P-F SYR) 1 MG/10 ML DISP.SYRIN ONE (10:40)
[2019-09-09] MEDS ORDERED: VANCOMYCIN 1,000 MG VIAL (RESTRICTED TO ID ONLY) IVPB ONE (10:45)
[2019-09-09] MEDS ORDERED: ROCURONIUM BROMIDE 50 MG/5 ML SYRINGE ONE ×4 (10:54→12:43)
[2019-09-09] MEDS ORDERED: ceFAZolin SODIUM 1 GM VIAL IVPB ONE ×2 (11:10→14:45)
[2019-09-09] MEDS ORDERED: NEOSTIGMINE METHYLSULFATE 0.5 MG/1 ML - 10 ML MDV ONE (12:30)
[2019-09-09] MEDS ORDERED: GELATIN, ABSORBABLE 12-7MM EACH SPONGE TP ONE (12:32)
[2019-09-09] MEDS ORDERED: DEXAMETHASONE SOD PHOSPHATE 4 MG/1 ML VIAL ONE (12:37)
--- NOTE | 2019-09-09 13:49 | PN ---
Progress Note (short form) - Note Progress Note: SEVERITY OF ILLNESS: 4. 59F POD #0 s/p: 1. Inspection fusion mass (cervical spine) 2. T1, T2, T3 laminectomies 3. C7-T4 in situ fusion 4. Inspection fusion mass (thoracolumbar spine) 5. Posterior instrumentation T8-S1 6. Posterior arthrodesis T8-S1 7. Bone allograft 8. Bone autograft 9. Complex wound closure (60cm) -Admit to ICU post-op. -Pain control: per anaesthesia & pain management teams; NO NSAID's. -DVT PPx: -Mechanical only: MIGUEL ANGEL's, SCD's. -Chemical: None. -Incentive spirometry q15 min. -NPO until flatus. -Morse care; d/c when ambulating. -Post-op Ancef x 3 doses. -PT/OT/Rehab, OOB. -WBAT B/L LE. -No bending, lifting (>5 lbs), or twisting for 9-12 months. -Care per ICU & medical hospitalist teams. -f/u consultations: 1. pain management (Dr. Taras Khalil) & 2. Neurology (Dr. Srikanth Bhakta). -Discharge planning: [facility]; [facility]; call for appointment; . -Will follow. Shayan Marina MD (Orthopaedic Surgery).
--- NOTE | 2019-09-09 14:04 | OP ---
Operative Note - Note: Operative Date: 09/09/19 Operation: 1. Inspection fusion mass (cervical spine). 2. T1, T2, T3 laminectomies. 3. C7-T4 in situ fusion. 4. Inspection fusion mass ( thoracolumbar spine). 5. Posterior instrumentation T8-S1. 6. Posterior arthrodesis T8-S1. 7. Bone allograft. 8. Bone autograft. 9. Complex wound closure (60cm) Post-Operative Diagnosis: Same as Pre-op Surgeon: Shayan Marina [employer] Account Manager: Humble Marina Anesthesiologist/TOP LIFT TRIMMER: Sury Harmon Anesthesia: General Specimens Removed: Bone, soft tissue Estimated Blood Loss (mls): 800 Drains & Tubes with Location: 1 x deep HemoVac Blood Volume Replaced (mls): 250 (Cell saver) Fluid Volume Replaced (mls): 3,400 Operative Report Dictated: Yes
[2019-09-09] MEDS ORDERED: ONDANSETRON 4 MG/2 ML VIAL ONE (16:11)
[2019-09-09] MEDS ORDERED: diazePAM CARPU-JECT 10 MG/2 ML DISP.SYRIN IVPUSH PRN (16:47)
[2019-09-09] MEDS ORDERED: HYDROmorphone *PCA* 10MG/50ML DISP.SYRIN ONE (16:58)
[2019-09-09] MEDS ORDERED: PROMETHAZINE HCL 25 MG/1 ML VIAL IVPUSH PRN (16:58)
[2019-09-09] MEDS ORDERED: PROMETHAZINE HCL 25 MG/1 ML VIAL IVPB PRN (16:58)
[2019-09-09] MEDS ORDERED: DEXAMETHASONE SOD PHOSPHATE 4 MG/1 ML VIAL IVPUSH PRN (16:58)
[2019-09-09] MEDS ORDERED: ONDANSETRON 4 MG/2 ML VIAL IVPUSH PRN ×2 (16:58)
[2019-09-09] MEDS ORDERED: HYDROmorphone *PCA* 10MG/50ML DISP.SYRIN PCA ONE (17:15)
[2019-09-09] MEDS ORDERED: ACETAMINOPHEN INJECTION 100 ML IVPB ONE (17:59)
[2019-09-09] MEDS ORDERED: ACETAMINOPHEN 1000 MG/100 ML VIAL (NON FORMULARY) IVPB ONE (18:00)
[2019-09-09] MEDS ORDERED: diazePAM CARPU-JECT 10 MG/2 ML DISP.SYRIN IVPUSH ONE (18:45)
[2019-09-09] MEDS ORDERED: diazePAM CARPU-JECT 10 MG/2 ML DISP.SYRIN ONE (19:22)
[2019-09-09] MEDS ORDERED: ceFAZolin 2 GRAM PREMIX BAG IVPB SCH (20:00)
--- NOTE | 2019-09-09 20:58 | CONSULT ---
Consultation: REQUESTING PROVIDER: Dr. Marina CONSULT REQUEST: We have been asked to medically evaluate this patient for post- operative ICU care. HISTORY OF PRESENT ILLNESS: 59 y/o female with hx of multiple (~30) back and spine surgeries, complex global myofascial pain syndrome, recurrent spinal stenosis, multiple sclerosis, mechanical thoracolumbar instability, POD #0 s/p 1) inspection fusion mass (c- spine), 2) T1-3 laminectomies, 3) C7-T4 in situ fusion, 4) Inspection fusion mass (thoracolumbar spine), 5) posterior instrumentation T8-S1, 6) posteroir arthrodesis T8-S1, 7) bone allograft, 8) bone autograft, 9) complex wound closure (60cm). REVIEW OF SYSTEMS: CONSTITUTIONAL: Absent: fever, chills, diaphoresis, generalized weakness, malaise, loss of appetite, weight change HEENT: Absent: rhinorrhea, nasal congestion, throat pain, throat swelling, difficulty swallowing, mouth swelling, ear pain, eye pain, visual changes CARDIOVASCULAR: Absent: chest pain, syncope, palpitations, irregular heart rate, lightheadedness , peripheral edema RESPIRATORY: Absent: cough, shortness of breath, dyspnea with exertion, orthopnea, wheezing, stridor, hemoptysis GASTROINTESTINAL: Absent: abdominal pain, abdominal distension, nausea, vomiting, diarrhea, constipation, melena, hematochezia GENITOURINARY: Absent: dysuria, frequency, urgency, hesitancy, hematuria, flank pain, genital pain MUSCULOSKELETAL: neck pain, back pain Absent: myalgia, arthralgia, joint swelling SKIN: Absent: rash, itching, pallor HEMATOLOGIC/IMMUNOLOGIC: Absent: easy bleeding, easy bruising, lymphadenopathy, frequent infections ENDOCRINE: Absent: unexplained weight gain, unexplained weight loss, heat intolerance, cold intolerance NEUROLOGIC: headache, mild pain and tingling in right upper/lower extremities Absent: dizziness, seizure, mental status changes, bladder or bowel incontinence PSYCHIATRIC: anxiety, depression Absent: suicidal or homicidal ideation, hallucinations. PHYSICAL EXAMINATION Vital Signs - 24 hr 09/09/19 09/09/19 09/09/19 07:30 07:31 16:45 Temperature 97.8 F 97.8 F 97.9 F Pulse Rate 75 75 92 H Respiratory 20 20 19 Rate Blood Pressure 112/40 L 112/40 L 122/91 O2 Sat by Pulse 96 99 Oximetry (%) 09/09/19 09/09/19 09/09/19 17:00 17:15 17:30 Temperature Pulse Rate 97 H 97 H 98 H Respiratory 12 13 12 Rate Blood Pressure 135/78 119/84 127/78 O2 Sat by Pulse 100 100 100 Oximetry (%) 09/09/19 09/09/19 09/09/19 17:45 18:00 18:15 Temperature Pulse Rate 98 H 97 H 97 H Respiratory 12 12 12 Rate Blood Pressure 135/74 143/73 138/72 O2 Sat by Pulse 100 100 100 Oximetry (%) 09/09/19 18:30 Temperature Pulse Rate 96 H Respiratory 13 Rate Blood Pressure 136/71 O2 Sat by Pulse 100 Oximetry (%) GENERAL: Awake, alert, in no acute distress. HEAD: Normal with no signs of trauma. EYES: Pupils equal, round and reactive to light, extraocular movements intact, sclera anicteric, conjunctiva clear. No lid lag. EARS, NOSE, THROAT: Ears normal, nares patent, oropharynx clear without exudates. Moist mucous membranes. NECK: Normal range of motion, supple without lymphadenopathy, JVD, or masses. LUNGS: Breath sounds equal, clear to auscultation bilaterally. No wheezes, and no crackles. No accessory muscle use. HEART: Regular rate and rhythm, normal S1 and S2 without murmur, rub or gallop. ABDOMEN: Soft, nontender, not distended, no guarding, no rebound, no masses. No hepatomegaly or splenomegaly. MUSCULOSKELETAL: Normal range of motion at all joints. No bony deformities or tenderness. No CVA tenderness. UPPER EXTREMITIES: 2+ pulses, warm, well-perfused. No cyanosis. No clubbing. Cap refill <2 seconds. No peripheral edema. LOWER EXTREMITIES: 2+ pulses, warm, well-perfused. No calf tenderness. No peripheral edema. NEUROLOGICAL: Cranial nerves II-XII intact. Normal speech. SKIN: Warm, dry, normal turgor, no rashes or lesions noted. Laboratory Results - last 24 hr 09/09/19 06:47 Blood Type A POSITIVE Antibody Screen Negative Crossmatch IS Only See Detail Active Medications Generic Name Dose Route Start Last Admin Trade Name Freq PRN Reason Stop Dose Admin Acetaminophen 1,000 mg 09/09/19 17:00 Ofirmev Injection - IVPB 09/15/19 16:59 Q8H ARNIE Amitriptyline HCl 50 mg 09/09/19 22:00 Elavil - PO HS ARNIE Dexamethasone Sodium Phosphate 4 mg 09/09/19 16:58 Decadron Injection - IVPUSH ONCE PRN NAUSEA AND/OR VOMITING Diazepam 10 mg 09/09/19 16:47 Valium Injection - IVPUSH Q8H PRN MUSCLE SPASMS Diphenhydramine HCl 12.5 mg 09/09/19 16:58 Benadryl Injection - IVPUSH ONCE PRN FOR ITCHING Hydromorphone HCl 10 mg 09/09/19 17:00 Hydromorphone 10 Mg/50 Ml-Ns RISK COMPLIANCE MANAGER 09/16/19 17:01 RISK COMPLIANCE MANAGER ARNIE Protocol Lactated Ringer's 1,000 mls @ 125 mls/hr 09/09/19 17:00 Lactated Ringers Solution IV ASDIR ARNIE Lactated Ringer's 1,000 mls @ 125 mls/hr 09/09/19 17:00 Lactated Ringers Solution IV ASDIR ARNIE Cefazolin Sodium/Dextrose 2 gm in 50 mls @ 100 mls/hr 09/09/19 20:00 Ancef 2 Gm Premixed Ivpb - IVPB 09/10/19 08:29 Q6H [facility] Non-Formulary Medication 100 mg 09/09/19 22:00 Amitriptyline Hcl PO TID ARNIE Ondansetron HCl 4 mg 09/09/19 16:47 Zofran Injection IVPUSH Q6H PRN NAUSEA AND/OR VOMITING Ondansetron HCl 4 mg 09/09/19 16:58 Zofran Injection IVPUSH Q6H PRN NAUSEA AND/OR VOMITING Ondansetron HCl 4 mg 09/09/19 16:58 Zofran Injection IVPUSH Q4H PRN NAUSEA AND/OR VOMITING Promethazine HCl 12.5 mg 09/09/19 16:58 Phenergan Injection - IVPUSH Q6H PRN NAUSEA-FOR RESCUE AFTER 15 MIN Promethazine HCl 12.5 mg 09/09/19 16:58 Phenergan Injection - IVPB Q6H PRN NAUSEA AND/OR VOMITING ASSESSMENT/PLAN: 59 y/o female with hx of multiple (~30) back and spine surgeries, complex global myofascial pain syndrome, recurrent spinal stenosis, multiple sclerosis, mechanical thoracolumbar instability, POD #0 s/p 1) inspection fusion mass (c- spine), 2) T1-3 laminectomies, 3) C7-T4 in situ fusion, 4) Inspection fusion mass (thoracolumbar spine), 5) posterior instrumentation T8-S1, 6) posteroir arthrodesis T8-S1, 7) bone allograft, 8) bone autograft, 9) complex wound closure (60cm). #ortho -pt/ot/rehab -out of bed -diazepam for muscle spasms #neuro -pain mgmt consult (Dr. Khalil) -neuro consult (Dr. Bhakta) -hydromorphone RISK COMPLIANCE MANAGER -no NSAIDs for pain control #resp -incentive spirometry -O2 supplementation PRN #ID -cefazolin x3 doses post-op #F/E/N -IVF -trend lytes, replete PRN -NPO until passing gas -guzman in place #DVTppx -SCDs Dispo: continue ICU care Visit type - Emergency Visit Emergency Visit: No - New Patient This patient is new to me today: Yes Date on this admission: 09/10/19 - Critical Care Critical Care patient: Yes Total Critical Care Time (in minutes): 35 Critical Care Statement: The care of this patient involved high complexity decision making to prevent further life threatening deterioration of the patient 's condition and/or to evaluate & treat vital organ system(s) failure or risk of failure. ATTENDING PHYSICIAN STATEMENT I saw and evaluated the patient. I reviewed the resident's note and discussed the case with the resident. I agree with the resident's findings and plan as documented. SUBJECTIVE: OBJECTIVE: ASSESSMENT AND PLAN:
--- NOTE | 2019-09-09 21:32 | OP ---
DATE OF OPERATION: DATE OF DICTATION: 09/09/2019 SURGEON: Shayan Marina MD HYPOID GEAR TESTER: Humble Marina MD PREOPERATIVE DIAGNOSES: 1. Spinal stenosis T1, 2, and 3 with associated upper thoracic spondylomyelpathy. 2. Pseudoarthrosis thoracolumbar junction. POSTOPERATIVE DIAGNOSES: 1. Spinal stenosis T1, 2, and 3 with associated upper thoracic spondylomyelpathy. 2. Pseudoarthrosis thoracolumbar junction. OPERATION PERFORMED: 1. T1, 2, and 3 laminectomy. 2. T1, 2, and 3 posterolateral arthrodesis in situ. 3. Inspection of entire fusion mass from T4 to pelvis. 4. Pedicle screw instrumentation T7-S1. 5. Posterolateral arthrodesis T10-L3. 6. Complex wound closure 60 cm. 7. Bone marrow aspirate concentrate and autologous allografting. 8. Use of biplanar fluoroscopy and intraoperative neural monitoring. ANESTHESIA: General. ANTIBIOTIC GIVEN: 2 g Kefzol, 1 g vancomycin preoperative; 1 g Kefzol given intraoperatively. The wounds were relaxed every 15 minutes, that is, self- retaining retractors were removed, Cell Saver utilized. BLOOD LOSS: Approximately 800 mL. CELL SAVER GIVEN BACK: 250. OPERATION DETAILS: Patient correctly identified, brought into operating room. A preoperative evaluation and discussion with the patient is outlined in the preoperative consult in the note generated for this admission. Suffice to say, the salient feature is a multiply operated on spinal cord with the major problem always being the thoracolumbar junction and an underlying diagnosis of multiple sclerosis with progressive neurological weakness and paraparesis. A elie discussion was held with the patient that the surgery could convert her into a paraplegic. She is well aware of this and understands the ramifications of this. Other risk factors were discussed with her were infection, deep vein thrombosis, pulmonary embolism, associated vascular injuries, failure of hardware, and recurrent failure of fusion mass. Other unusual complications of this type of surgery is transient or permanent blindness as well as paralytic ileus and associated bowel problems following the surgery. Patient brought into the operating room under general anesthesia. Was placed prone on a Luís table. All bony points appropriately padded. Eyes were noted to be free of pressure. The head up positioned of 10 degrees was opted for, and every 45 minutes, the head position was flattened to a neutral position so as to create flow in the optic vein. The draping was from the base of the skull distal to the lumbosacral junction. The incision was made from the root of the neck longitudinally following the original incision all the way down distal to the lumbosacral junction. A sharp periosteal dissection was performed to expose the in situ posterior hardware at the cervical spine and extended down to the level of T9 with subperiosteal dissection being performed. Calculating off the scans, the correct positioning intraoperatively of T1 was not easy, but knowing that the T7 lateral mass screws were clearly identified, we were able to readily count down below that and decompress effectively the cervical spine as well as the upper thoracic spine including the T1, 2, and 3 levels. A full laminectomy was performed. The cord was freed completely. Unfortunately, no neuromonitoring changes occurred. Once this had been performed, the posterior lamina bone was morselized with a Midas Tom mill and packed into the intertransverse plane. The laminectomy itself was difficult as was the entire operation. The laminectomy, in order to gain access to this area, was technically not easy as well as the fear of plunging into the dorsal defect spaces from previous surgeries were meticulously, continuously evaluated throughout the procedure. Once this had been completed, we extended the entire length of the wound and exposure to the lumbosacral junction. Dissection was taken through the skin, subcutaneous tissue to the hard level-like muscle of the erector spinae, which was hard and indurated from previous surgeries both left and right hand side. Using the technique of a triangulation of the dissection, the dissection was taken up to beyond the fusion mass. The soft tissue stripped readily off the axial fusion. There were areas of spot welding of tissue to the bone. These were dealt with with unipolar Bovie. A lateral fluoroscopic x-ray helped us identify the levels of the thoracolumbar junction and lumbosacral junction, and after the entire bone bed was exposed, the fusion mass was inspected. The findings were as follows: The area distal to the cage, that is the lumbar spine, was solid. The area of the thoracic spine above the cage a solid leaving these 2 large tectonic plates in motion around a flimsy- looking thoracolumbar junction. There was a plastic deformation of the bone bed. There was no elie subluxation or excessive motion noted. With this and because of the clinical picture of recurrent kyphoscoliosis and deformity, the positioning on the table was opted for, and pedicle screws were seated from T7-T10 and then pedicle screws were inserted from L3, 4, and S1. The L5 pedicle screws were left behind because a broken screw was in situ in L5. The screws were seated using the technique of an anterior x-ray beam to identify the eyes of the pedicle, and this guided me to seat each screw accurately and lateral fluoroscopic x-ray to ensure that the screws were seated appropriately through the pedicles into the vertebral bodies. Each screw was drilled with a 4.5 drill bit, palpated with a feeler. The screws measured 40 x 6.5 mm in the thoracic spine and 45 x 6.5 mm in the lumbar spine. The bone quality was extremely hard, osteoporotic in nature. Once this had been performed, the screws were tested with intraoperative neuromonitoring, found to be completely safe. All screws were above 20 mA except in the right L3, which was at 14 mA. The rods were contoured onto the screw heads and captured into the tulips and tightened with the appropriate caps and then ultimately tightened with a torque device. We fixed the metal to the spine not the spine to the metal. Because of previous phoebe breakage , I elected to provide her with an additional phoebe. This was placed in the center between the 2 main rods, and 2 wedding bands were used, 1 proximally at the level between the 1st and 2nd pedicle screw in the thoracic spine and the other bit of wedding band between the 1st and 2nd screw of the lumbar spine construct. The wedding bands were appropriately tightened with the torque and a single phoebe cut and contoured to fit perfectly well. This provided adequate additional fixation. Once completed, marrow from the posterior ileum was aspirated using a Jamshidi needle. This was mixed with autologous as well as allograft bone. Two strips were utilized, that is, demineralized colloid soaked in the stem cells from the BMAC and expanded allograft autograft bone was placed into the area between T10 and L3 to thus complete the posterolateral arthrodesis. The wounds were thoroughly lavaged. The next challenge was closure of the wound. Because of the induration of the soft tissue bed, the erector spinae muscles were literally freed off the thoracic cage, a thick muscular flap was mobilized across to the midline from left and right and side. Using sweetheart clamps and multiply placed No. 1 Vicryl sutures, we were able to close the erector spinae over the hardware. The next difficulty was the previously adherent skin subcutaneous complex for closure. A new layer was created by dissecting through the erector spinae muscle and the subcutaneous fat leaving the subcutaneous tissue as thick as possible alongside the skin. This was then brought together operating from the distal and proximal end of the wound and finishing the suturing centrally to bring the entire wound bed together. No. 1 Vicryl was utilized in the subcutaneous space. Jerome were used for the skin and multiple No. 2-0 nylon sutures to ezekiel the skin in the area of the thoracolumbar region. A 1/8-inch Hemovac was seated. This completed a 6-cm complex wound closure. Overall comment, operation was extremely difficult. Hopefully, the decompression of the cervical spine will help improve neurological function. If certainly the rodding of the thoracolumbar sacral spine will help keep her upright and straight and avoid the fall into kyphoscoliosis, which was a progressive deformity and one of the indications for this operation. MD YINA Richardson/[id number] MTDD
[2019-09-09] MEDS: CEFAZOLIN 2 GM/D5W 2 GM/50 ML ML IVPB SCH (21:46)
[2019-09-09] MEDS ORDERED: AMITRIPTYLINE HCL 50 MG TABLET PO SCH (22:00)
[2019-09-09] MEDS ORDERED: AMITRIPTYLINE HCL 100 MG PO SCH (22:00)
[2019-09-09] MEDS ORDERED: BACLOFEN 10 MG TABLET (FP) PO ONE (23:33)
[2019-09-09] MEDS ORDERED: AMITRIPTYLINE HCL 25 MG TABLET (FP) PO SCH (23:58)
[2019-09-10] MEDS: ACETAMINOPHEN 1000 MG/100 ML VIAL (NON FORMULARY) IVPB SCH ×5 (02:21→20:38)
--- NOTE | 2019-09-10 02:21 | PN ---
Progress Note (short form) - Note Progress Note: 0030: Patient evaluated at bedside. Reports that she feels weakness and decreased strength in her right arm and right leg. Over several attempts to lift patient's right arm, a few of them result in her arm dropping onto her face right away, while a few others result in her able to hold her arm up in the air for a few seconds before no longer being held up against gravity. Decreased regulator tester strength on the right side. Patient has decreased sensation on the right upper/lower extremity. Sensation fully intact on left upper/lower extremities. Bilateral sensation intact on face. Patient able to lift left leg. When asked to lift right leg, patient states that she is unable to. Bundy's sign performed - unsure if patient is exerting effort when raising right leg. Call placed to Dr. Uriarte's office. Pending call back. 0130: Patient reassessed. Asleep and resting comfortably in bed.
[2019-09-10] MEDS: CEFAZOLIN 2 GM/D5W 2 GM/50 ML ML IVPB SCH ×2 (02:23→08:05)
[2019-09-10] MEDS: LACTATED RINGERS SOLUTION 1,000 ML IV SCH ×5 (02:25→17:46)
[2019-09-10 06:51] LABS: HEMATOCRIT 34.1 % (32.4-45.2); HEMOGLOBIN 11.3 GM/dL (10.7-15.3); MCH 30.1 pg (25.7-33.7); MCHC 33.1 g/dl (32.0-36.0); MEAN CELL VOLUME 90.8 fl (80-96); MEAN PLT VOLUME 8.8 fl (7.5-11.1); PLATELET COUNT 198 K/MM3 (134-434); RBC 3.76 M/mm3 (3.60-5.2); RDW 15.2 % (11.6-15.6); WHITE BLOOD COUNT 13.8 K/mm3 (4.0-10.0)
[2019-09-10] MEDS: HYDROmorphone *PCA* 10MG/50ML DISP.SYRIN PCA SCH ×5 (07:00→20:37)
[2019-09-10 07:31] LABS: BLOOD UREA NITROGEN 9.1 mg/dL (7-18); CALCIUM 7.7 mg/dL (8.5-10.1); CREATININE 0.4 mg/dL (0.55-1.3); POTASSIUM 4.5 mmol/L (3.5-5.1)
[2019-09-10] MEDS ORDERED: LORazepam 1 MG TABLET PO ONE (08:15)
--- NOTE | 2019-09-10 09:04 | CONSULT ---
Consult - text type - Consultation Consultation Note: Neurology HISTORY OF PRESENT ILLNESS: 59 y/o female with hx of multiple (~30) back and spine surgeries, complex global myofascial pain syndrome, recurrent spinal stenosis, multiple sclerosis, mechanical thoracolumbar instability, admitted for surgical intervention and per notes completed: 1) inspection fusion mass (c-spine), 2) T1-3 laminectomies, 3) C7-T4 in situ fusion, 4) Inspection fusion mass (thoracolumbar spine), 5) posterior instrumentation T8-S1, 6) posteroir arthrodesis T8-S1, 7) bone allograft, 8) bone autograft, 9) complex wound closure (60cm). 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 Complaints of pain and pain mgmt has been consulted. Extensive conversation regarding her MS history which dates back to >10 years and reports previously on BetaSeron but felt no difference. States last MRI brain was 1 year ago, offered repeat which patient would like to defer and reports prior imaging stable and states she will not be able to stay flat and tolerate procedure. She does not want to start on MS meds and would like to focus on spinal mgmt at this time. As outpatient, would advise MRI brain with and without contrast to start with. Active Medications Acetaminophen (Ofirmev Injection -) 1,000 mg IVPB Q8H [facility] Stop: 09/15/19 16:59 Last Admin: 09/10/19 08:19 Dose: 1,000 mg Amitriptyline HCl (Elavil -) 50 mg PO HS [facility] Dexamethasone Sodium Phosphate (Decadron Injection -) 4 mg IVPUSH ONCE PRN PRN Reason: NAUSEA AND/OR VOMITING Diazepam (Valium Injection -) 10 mg IVPUSH Q8H PRN PRN Reason: MUSCLE SPASMS Diphenhydramine HCl (Benadryl Injection -) 12.5 mg IVPUSH ONCE PRN PRN Reason: FOR ITCHING Hydromorphone HCl (Hydromorphone 10 Mg/50 Ml-Ns) 10 mg EXECUTIVE STEWARD EXECUTIVE STEWARD [facility]; Protocol Stop: 09/16/19 17:01 Lactated Ringer's (Lactated Ringers Solution) 1,000 mls @ 125 mls/hr IV ASDIR [facility] Last Admin: 09/10/19 02:25 Dose: 125 mls/hr Lactated Ringer's (Lactated Ringers Solution) 1,000 mls @ 125 mls/hr IV ASDIR [facility] Non-Formulary Medication (Amitriptyline Hcl) 100 mg PO TID [facility] Ondansetron HCl (Zofran Injection) 4 mg IVPUSH Q6H PRN PRN Reason: NAUSEA AND/OR VOMITING Ondansetron HCl (Zofran Injection) 4 mg IVPUSH Q6H PRN PRN Reason: NAUSEA AND/OR VOMITING Ondansetron HCl (Zofran Injection) 4 mg IVPUSH Q4H PRN PRN Reason: NAUSEA AND/OR VOMITING Promethazine HCl (Phenergan Injection -) 12.5 mg IVPUSH Q6H PRN PRN Reason: NAUSEA-FOR RESCUE AFTER 15 MIN Promethazine HCl (Phenergan Injection -) 12.5 mg IVPB Q6H PRN PRN Reason: NAUSEA AND/OR VOMITING REVIEW OF SYSTEMS: CONSTITUTIONAL: Absent: fever, chills, diaphoresis, generalized weakness, malaise, loss of appetite, weight change HEENT: Absent: rhinorrhea, nasal congestion, throat pain, throat swelling, difficulty swallowing, mouth swelling, ear pain, eye pain, visual changes CARDIOVASCULAR: Absent: chest pain, syncope, palpitations, irregular heart rate, lightheadedness , peripheral edema RESPIRATORY: Absent: cough, shortness of breath, dyspnea with exertion, orthopnea, wheezing, stridor, hemoptysis GASTROINTESTINAL: Absent: abdominal pain, abdominal distension, nausea, vomiting, diarrhea, constipation, melena, hematochezia GENITOURINARY: Absent: dysuria, frequency, urgency, hesitancy, hematuria, flank pain, genital pain MUSCULOSKELETAL: Absent: myalgia, arthralgia, joint swelling, back pain, neck pain SKIN: Absent: rash, itching, pallor HEMATOLOGIC/IMMUNOLOGIC: Absent: easy bleeding, easy bruising, lymphadenopathy, frequent infections ENDOCRINE: Absent: unexplained weight gain, unexplained weight loss, heat intolerance, cold intolerance NEUROLOGIC: Absent: headache, focal weakness or paresthesias, dizziness, unsteady gait, seizure, mental status changes, bladder or bowel incontinence PSYCHIATRIC: Absent: anxiety, depression, suicidal or homicidal ideation, hallucinations. PHYSICAL EXAMINATION Vital Signs Period Temp Pulse Resp BP Sys/Gallagher Pulse Ox Last 24 Hr 97.9 F-99.0 F 92-110 12-25 119-155/70-91 97-100 GENERAL: Awake, alert, and fully oriented, in no acute distress. HEAD: Normal with no signs of trauma. EYES: Pupils equal, round and reactive to light, extraocular movements intact, sclera anicteric, conjunctiva clear. No lid lag. EARS, NOSE, THROAT: Ears normal, nares patent, oropharynx clear without exudates. Moist mucous membranes. NECK: Normal range of motion, supple without lymphadenopathy, JVD, or masses. LUNGS: Breath sounds equal, clear to auscultation bilaterally. No wheezes, and no crackles. No accessory muscle use. HEART: Regular rate and rhythm, normal S1 and S2 without murmur, rub or gallop. ABDOMEN: Soft, nontender, not distended, normoactive bowel sounds, no guarding, no rebound, no masses. No hepatomegaly or splenomegaly. MUSCULOSKELETAL: Normal range of motion at all joints. No bony deformities or tenderness. No CVA tenderness. UPPER EXTREMITIES: 2+ pulses, warm, well-perfused. No cyanosis. No clubbing. Cap refill <2 seconds. No peripheral edema. LOWER EXTREMITIES: 2+ pulses, warm, well-perfused. No calf tenderness. No peripheral edema. NEUROLOGICAL: Cranial nerves II-XII intact. Normal speech. Normal gait. PSYCHIATRIC: Cooperative. Good eye contact. Appropriate mood and affect. SKIN: Warm, dry, normal turgor, no rashes or lesions noted. CBCD WBC 13.8 K/mm3 (4.0-10.0) H 09/10/19 05:50 RBC 3.76 M/mm3 (3.60-5.2) 09/10/19 05:50 Hgb 11.3 GM/dL (10.7-15.3) 09/10/19 05:50 Hct 34.1 % (32.4-45.2) 09/10/19 05:50 MCV 90.8 fl (80-96) 09/10/19 05:50 MCHC 33.1 g/dl (32.0-36.0) 09/10/19 05:50 RDW 15.2 % (11.6-15.6) D 09/10/19 05:50 Plt Count 198 K/MM3 (134-434) D 09/10/19 05:50 MPV 8.8 fl (7.5-11.1) 09/10/19 05:50 CMP Sodium 138 mmol/L (136-145) 09/10/19 05:50 Potassium 4.5 mmol/L (3.5-5.1) 09/10/19 05:50 Chloride 104 mmol/L (98-107) 09/10/19 05:50 Carbon Dioxide 30 mmol/L (21-32) 09/10/19 05:50 Anion Gap 4 MMOL/L (8-16) L 09/10/19 05:50 BUN 9.1 mg/dL (7-18) 09/10/19 05:50 Creatinine 0.4 mg/dL (0.55-1.3) L 09/10/19 05:50 Random Glucose 109 mg/dL (74-106) H 09/10/19 05:50 Calcium 7.7 mg/dL (8.5-10.1) L 09/10/19 05:50 ASSESSMENT/PLAN: 59 y/o female with hx of multiple (~30) back and spine surgeries, complex global myofascial pain syndrome, recurrent spinal stenosis, multiple sclerosis, mechanical thoracolumbar instability, POD #0 s/p 1) inspection fusion mass (c- spine), 2) T1-3 laminectomies, 3) C7-T4 in situ fusion, 4) Inspection fusion mass (thoracolumbar spine), 5) posterior instrumentation T8-S1, 6) posteroir arthrodesis T8-S1, 7) bone allograft, 8) bone autograft, 9) complex wound closure (60cm). 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 Complaints of pain and pain mgmt has been consulted. Extensive conversation regarding her MS history which dates back to > 10 years and reports previously on BetaSeron but felt no difference. States last MRI brain was 1 year ago, offered repeat which patient would like to defer and reports prior imaging stable and states she will not be able to stay flat and tolerate procedure. She does not want to start on MS meds and would like to focus on spinal mgmt at this time. As outpatient, would advise MRI brain with and without contrast to start with. Follow up pain mgmt, physical therapy as tolerated. Will need rehab placement. Ortho follow up and medical optimization recommended. Discussed with ICU nurse. Critical care time 35 mins.
[2019-09-10] MEDS ORDERED: HYDROmorphone *PCA* 10MG/50ML DISP.SYRIN PCA SCH (09:52)
[2019-09-10] MEDS ORDERED: diazePAM CARPU-JECT 10 MG/2 ML DISP.SYRIN IVPUSH PRN (10:08)
--- NOTE | 2019-09-10 10:08 | PN ---
Progress Note (short form) - Note Progress Note: POD 1 s/p T1-S1 fusion under GETA. Pt c/o pain, current PIPING DESIGNER setting 0.5mg lockout 10min, no basal rate. Also c/o muscle spasms and headache. Patient with high narcotic tolerance. Will increase PIPING DESIGNER to 0.5mg lockout q8 min, no basal rate. Encouraged Valium IV for muscle spasms. Patient receiving scheduled Ofirmev 1000mg q6hr. Will reassess patient comfort with PIPING DESIGNER increase.
[2019-09-10] MEDS: LORazepam 2 MG/ML SDV VIAL IVPUSH PRN ×3 (10:40→23:43)
--- NOTE | 2019-09-10 12:03 | PN ---
Teaching Attending Note Name of Resident: Justine Willis ATTENDING PHYSICIAN STATEMENT I saw and evaluated the patient. I reviewed the resident's note and discussed the case with the resident. I agree with the resident's findings and plan as documented. SUBJECTIVE: Pt seen and examined in the ICU. c/o surgical site pain, lower ribcage pain. + flatus. OBJECTIVE: Vital Signs Period Temp Pulse Resp BP Sys/Gallagher Pulse Ox Last 24 Hr 97.9 F-100.1 F 92-110 12-25 118-155/69-91 97-100 Intake & Output 09/07/19 09/08/19 09/09/19 09/10/19 23:59 23:59 23:59 23:59 Intake Total 4050 1258 Output Total 2300 Balance 1750 1258 Gen: NAD at rest Heart: RRR Lung: decreased breath sounds at the bases Abd: soft, nontender Ext: no edema CBC, BMP 09/10/19 05:50 09/10/19 05:50 Active Medications Acetaminophen (Ofirmev Injection -) 1,000 mg IVPB Q8H [facility] Stop: 09/15/19 16:59 Last Admin: 09/10/19 08:19 Dose: 1,000 mg Amitriptyline HCl (Elavil -) 50 mg PO HS [facility] Dexamethasone Sodium Phosphate (Decadron Injection -) 4 mg IVPUSH ONCE PRN PRN Reason: NAUSEA AND/OR VOMITING Diazepam (Valium Injection -) 10 mg IVPUSH Q8H PRN PRN Reason: MUSCLE SPASMS Diphenhydramine HCl (Benadryl Injection -) 12.5 mg IVPUSH ONCE PRN PRN Reason: FOR ITCHING Hydromorphone HCl (Hydromorphone 10 Mg/50 Ml-Ns) 10 mg CLIENT ANALYST CLIENT ANALYST [facility]; Protocol Stop: 09/16/19 17:01 Last Admin: 09/10/19 10:04 Dose: 10 mg Lactated Ringer's (Lactated Ringers Solution) 1,000 mls @ 125 mls/hr IV ASDIR [facility] Last Admin: 09/10/19 10:24 Dose: 125 mls/hr Lactated Ringer's (Lactated Ringers Solution) 1,000 mls @ 125 mls/hr IV ASDIR [facility] Last Admin: 09/10/19 07:00 Dose: Not Given Lorazepam (Ativan Injection -) 2 mg IVPUSH Q6H PRN PRN Reason: MUSCLE SPASMS Last Admin: 09/10/19 10:40 Dose: 2 mg Non-Formulary Medication (Amitriptyline Hcl) 100 mg PO TID [facility] Ondansetron HCl (Zofran Injection) 4 mg IVPUSH Q6H PRN PRN Reason: NAUSEA AND/OR VOMITING Ondansetron HCl (Zofran Injection) 4 mg IVPUSH Q6H PRN PRN Reason: NAUSEA AND/OR VOMITING Ondansetron HCl (Zofran Injection) 4 mg IVPUSH Q4H PRN PRN Reason: NAUSEA AND/OR VOMITING Promethazine HCl (Phenergan Injection -) 12.5 mg IVPUSH Q6H PRN PRN Reason: NAUSEA-FOR RESCUE AFTER 15 MIN Promethazine HCl (Phenergan Injection -) 12.5 mg IVPB Q6H PRN PRN Reason: NAUSEA AND/OR VOMITING ASSESSMENT AND PLAN: Progressive Kyphoscoliosis s/p T1-T3 Laminectomies/C7-T4 Fusion/T8-S1 Posterior Instrumentation/Arthrodesis - pain control - incentive spirometry - IVF - monitor drain output - activity/diet/DVT prophylaxis per surgery
--- NOTE | 2019-09-10 12:43 | PN ---
Physical Exam: SUBJECTIVE: Patient seen and examined at bedside. pt states she is in a lot of pain in her back. pt expresses weakness in her extremities and wishes for her pain to be better controlled. pt states she has passed gas. pt states she is thirsty. pt states she takes ativan at home multiple times a day. pt states that her R side sensation feels different than her left. OBJECTIVE: Vital Signs Period Temp Pulse Resp BP Sys/Gallagher Pulse Ox Last 24 Hr 97.9 F-100.1 F 92-110 12-25 118-155/69-91 97-100 GENERAL: The patient is awake, alert, and fully oriented, in no acute distress. EYES: PERRL, extraocular movements intact, conjunctiva clear. No ptosis. ENT: oropharynx clear without exudates, moist mucous membranes. tongue fasciculations present NECK: Trachea midline, full range of motion, supple. LUNGS: Breath sounds equal, clear to auscultation bilaterally,no accessory muscle use. HEART: Regular rate and rhythm, S1, S2 ABDOMEN: Soft, nontender, nondistended, normoactive bowel sounds, no guarding EXTREMITIES: 2+ pulses, warm, well-perfused, no edema. NEUROLOGICAL: Cranial nerves II through XII grossly intact. Normal speech, gait not observed. Muscle strength 2/5 R UE, 5/5 LUE. SKIN: Warm, dry, normal turgor, no rashes or lesions noted Laboratory Results - last 24 hr 09/10/19 09/10/19 05:50 05:50 WBC 13.8 H RBC 3.76 Hgb 11.3 Hct 34.1 MCV 90.8 MCH 30.1 MCHC 33.1 RDW 15.2 D Plt Count 198 D MPV 8.8 Sodium 138 Potassium 4.5 Chloride 104 Carbon Dioxide 30 Anion Gap 4 L BUN 9.1 Creatinine 0.4 L Est GFR (CKD-EPI)AfAm 134.00 Est GFR (CKD-EPI)NonAf 115.62 Random Glucose 109 H Calcium 7.7 L Current Medications Acetaminophen (Ofirmev Injection -) 1,000 mg IVPB Q8H [facility] Stop: 09/15/19 16:59 Last Admin: 09/10/19 08:19 Dose: 1,000 mg Amitriptyline HCl (Elavil -) 50 mg PO HS [facility] Dexamethasone Sodium Phosphate (Decadron Injection -) 4 mg IVPUSH ONCE PRN PRN Reason: NAUSEA AND/OR VOMITING Diazepam (Valium Injection -) 10 mg IVPUSH Q8H PRN PRN Reason: MUSCLE SPASMS Diphenhydramine HCl (Benadryl Injection -) 12.5 mg IVPUSH ONCE PRN PRN Reason: FOR ITCHING Hydromorphone HCl (Hydromorphone 10 Mg/50 Ml-Ns) 10 mg LIFE SKILLS TRAINER LIFE SKILLS TRAINER [facility]; Protocol Stop: 09/16/19 17:01 Last Admin: 09/10/19 10:04 Dose: 10 mg Lactated Ringer's (Lactated Ringers Solution) 1,000 mls @ 125 mls/hr IV ASDIR [facility] Last Admin: 09/10/19 10:24 Dose: 125 mls/hr Lactated Ringer's (Lactated Ringers Solution) 1,000 mls @ 125 mls/hr IV ASDIR [facility] Last Admin: 09/10/19 07:00 Dose: Not Given Lorazepam (Ativan Injection -) 2 mg IVPUSH Q6H PRN PRN Reason: MUSCLE SPASMS Last Admin: 09/10/19 10:40 Dose: 2 mg Non-Formulary Medication (Amitriptyline Hcl) 100 mg PO TID [facility] Ondansetron HCl (Zofran Injection) 4 mg IVPUSH Q6H PRN PRN Reason: NAUSEA AND/OR VOMITING Ondansetron HCl (Zofran Injection) 4 mg IVPUSH Q6H PRN PRN Reason: NAUSEA AND/OR VOMITING Ondansetron HCl (Zofran Injection) 4 mg IVPUSH Q4H PRN PRN Reason: NAUSEA AND/OR VOMITING Promethazine HCl (Phenergan Injection -) 12.5 mg IVPUSH Q6H PRN PRN Reason: NAUSEA-FOR RESCUE AFTER 15 MIN Promethazine HCl (Phenergan Injection -) 12.5 mg IVPB Q6H PRN PRN Reason: NAUSEA AND/OR VOMITING ASSESSMENT/PLAN: 59 yo female with hx of multiple (~30) back and spine surgeries, complex global myofascial pain syndrome, recurrent spinal stenosis, multiple sclerosis, mechanical thoracolumbar instability, POD #0 s/p 1) inspection fusion mass (c- spine), 2) T1-3 laminectomies, 3) C7-T4 in situ fusion, 4) Inspection fusion mass (thoracolumbar spine), 5) posterior instrumentation T8-S1, 6) posteroir arthrodesis T8-S1, 7) bone allograft, 8) bone autograft, 9) complex wound closure (60cm). Ortho -pt/ot/rehab -Dr. Salas lind appreciated. call out made for further recs -pt will likely require rehab on discharge Neuro -pain mgmt consult (Dr. Khalil) -neuro consult (Dr. Bhakta) appreciated. - increased LIFE SKILLS TRAINER to 0.5mg lockout q8 min, no basal rate. -c/w ativan IV for muscle spasms. -c/w Ofirmev 1000mg q6hr. no NSAIDs for pain control Resp -incentive spirometry -NC O2 w/ etCO2 monitoring ID -cefazolin x3 doses post-op F/E/N -IVF -trend lytes, replete PRN -full liquid diet -c/w guzman DVTppx: SCDs Dispo: continue ICU care Visit type - Emergency Visit Emergency Visit: No - New Patient This patient is new to me today: Yes Date on this admission: 09/10/19 - Critical Care Critical Care patient: Yes Total Critical Care Time (in minutes): 36 Critical Care Statement: The care of this patient involved high complexity decision making to prevent further life threatening deterioration of the patient 's condition and/or to evaluate & treat vital organ system(s) failure or risk of failure. ATTENDING PHYSICIAN STATEMENT I saw and evaluated the patient. I reviewed the resident's note and discussed the case with the resident. I agree with the resident's findings and plan as documented. SUBJECTIVE: OBJECTIVE: ASSESSMENT AND PLAN:
[2019-09-10] MEDS: ONDANSETRON 4 MG/2 ML VIAL IVPUSH PRN (15:55)
[2019-09-10] MEDS ORDERED: PT OWN MED DRAWER 7, Y5N ONE ×2 (17:13→20:12)
--- NOTE | 2019-09-10 19:28 | PN ---
Teaching Attending Note Name of Resident: Meir Harmon ATTENDING PHYSICIAN STATEMENT I saw and evaluated the patient. I reviewed the resident's note and discussed the case with the resident. I agree with the resident's findings and plan as documented. SUBJECTIVE: Patient is a 59 year old woman with PMH of Multiple Sclerosis, Morphine allergy , Lumbar spine stenosis and Multiple (about 30) back and spine surgeries, Complex global myofascial pain syndrome, Recurrent spinal stenosis, Multiple sclerosis, Mechanical thoracolumbar instability, POD #0 s/p 1) inspection fusion mass (c-spine), 2) T1-3 laminectomies, 3) C7-T4 in situ fusion, 4) Inspection fusion mass (thoracolumbar spine), 5) posterior instrumentation T8-S1 , 6) posteroir arthrodesis T8-S1, 7) bone allograft, 8) bone autograft, 9) complex wound closure (60cm). Patient is s/p T1-T3 Laminectomies/C7-T4 Fusion/T8 -S1, Posterior Instrumentation/Arthrodesis. Complaining of surgical site pain that is worse with breathing. Has passed gas, but no BM yet. OBJECTIVE: Alert Vital Signs Period Temp Pulse Resp BP Sys/Gallagher Pulse Ox Last 24 Hr 98.8 F-100.1 F 88-110 11-25 99-152/62-84 96-100 HEENT: No Jaundice, eye redness or discharge, PERRLA, EOMI. Normocephalic, atraumatic. External ears are normal and hearing is grossly intact. No nasal discharge. Neck: Supple, nontender. No palpable adenopathy or thyromegaly. No JVD Chest: Good effort. Clear to auscultation and percussion. Heart: Regular. No S3, rub or murmur Abdomen: Not distended, soft, nontender and no HSM. No rebound or guarding. Normal bowel sounds. Ext: Peripheral pulses intact. No leg edema. Skin: Warm and dry. No petechiae, rash or ecchymosis. Neuro: Alert. Oriented x3. CN 2-12 grossly intact. Sensation reduced on right RUE and RLE. DTR are symmetric. Psych: Appropriate mood and affect. Good insight. Current Medications Generic Name Dose Route Start Last Admin Trade Name Freq PRN Reason Stop Dose Admin Acetaminophen 1,000 mg 09/09/19 17:00 09/10/19 17:46 Ofirmev Injection - IVPB 09/15/19 16:59 Not Given Q8H [facility] Amitriptyline HCl 100 mg 09/10/19 16:26 Elavil - PO HS [facility] Dexamethasone Sodium Phosphate 4 mg 09/09/19 16:58 Decadron Injection - IVPUSH ONCE PRN NAUSEA AND/OR VOMITING Diazepam 10 mg 09/09/19 16:47 Valium Injection - IVPUSH Q8H PRN MUSCLE SPASMS Diphenhydramine HCl 12.5 mg 09/09/19 16:58 Benadryl Injection - IVPUSH ONCE PRN FOR ITCHING Hydromorphone HCl 10 mg 09/10/19 09:59 09/10/19 16:44 Hydromorphone 10 Mg/50 Ml-Ns DIRECTOR AGRICULTURAL SERVICES 09/16/19 17:01 10 mg DIRECTOR AGRICULTURAL SERVICES [facility] Administration Protocol Lactated Ringer's 1,000 mls @ 125 mls/hr 09/09/19 17:00 09/10/19 17:00 Lactated Ringers Solution IV 125 mls/hr ASDIR [facility] Administration Lactated Ringer's 1,000 mls @ 125 mls/hr 09/09/19 17:00 09/10/19 17:46 Lactated Ringers Solution IV Not Given ASDIR [facility] Lorazepam 2 mg 09/10/19 10:27 09/10/19 18:42 Ativan Injection - IVPUSH 2 mg Q6H PRN Administration MUSCLE SPASMS Ondansetron HCl 4 mg 09/09/19 16:47 09/10/19 15:55 Zofran Injection IVPUSH 4 mg Q6H PRN Administration NAUSEA AND/OR VOMITING Ondansetron HCl 4 mg 09/09/19 16:58 Zofran Injection IVPUSH Q6H PRN NAUSEA AND/OR VOMITING Ondansetron HCl 4 mg 09/09/19 16:58 Zofran Injection IVPUSH Q4H PRN NAUSEA AND/OR VOMITING Promethazine HCl 12.5 mg 09/09/19 16:58 Phenergan Injection - IVPUSH Q6H PRN NAUSEA-FOR RESCUE AFTER 15 MIN Promethazine HCl 12.5 mg 09/09/19 16:58 Phenergan Injection - IVPB Q6H PRN NAUSEA AND/OR VOMITING Home Medications Medication Instructions Recorded Amitriptyline HCl [Elavil -] 50 mg PO HS 01/16/19 Oxycodone HCl 60 mg PO Q8H 01/16/19 HYDROmorphone [Dilaudid -] 8 mg PO Q6H 03/04/19 Cyclobenzaprine HCl 1 tab PO TID 03/05/19 LORazepam [Ativan] 2 mg PO TID tablet MDD 6mg 03/11/19 Amitriptyline HCl 100 mg PO TID 09/06/19 Abnormal Lab Results 09/10/19 09/10/19 05:50 05:50 WBC 13.8 H Anion Gap 4 L Creatinine 0.4 L Random Glucose 109 H Calcium 7.7 L ASSESSMENT AND PLAN: 1. Post op day 1 - S/P T1-T3 Laminectomies/C7-T4 Fusion/T8-S1 Posterior Instrumentation/Arthrodesis - Continue pain control with dilaudid DIRECTOR AGRICULTURAL SERVICES, incentive spirometry, IVF and monitor drain output. Activity/diet/DVT prophylaxis per surgery. Hypocalcemia is new. Will check serum albumin and repeat serum calcium and if still low will check PTH and Vitamin D levels. Repeat EKG pending. Cause of leukocytosis unclear - getting perioperative cefazolin. Will get repeat CXR and urinalysis. Will continue comprehensive care for all of patients comorbid conditions. 2. DVT prophylaxis - SCD 3. Advance directives - Full code
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
[2019-09-10] MEDS: AMITRIPTYLINE HCL 25 MG TABLET (FP) PO SCH (23:59)
[2019-09-11] MEDS: ACETAMINOPHEN 1000 MG/100 ML VIAL (NON FORMULARY) IVPB SCH ×3 (01:27→16:58)
[2019-09-11 07:30] LABS: ALBUMIN 2.6 g/dl (3.4-5.0); BILIRUBIN,TOTAL 0.6 mg/dL (0.2-1); CALCIUM 8.2 mg/dL (8.5-10.1); CREATININE 0.4 mg/dL (0.55-1.3); MAGNESIUM 1.7 mg/dL (1.8-2.4); PHOSPHOROUS 2.3 mg/dL (2.5-4.9); POTASSIUM 4.3 mmol/L (3.5-5.1); TOT PROT 5.4 g/dl (6.4-8.2)
[2019-09-11 07:32] LABS: BASO % 0.2 % (0-2.0); EOS % 1.3 % (0-4.5); HEMATOCRIT 34.2 % (32.4-45.2); HEMOGLOBIN 11.3 GM/dL (10.7-15.3); LYMPH % 12.5 % (8-40); MEAN CELL VOLUME 90.7 fl (80-96); MONO % 5.9 % (3.8-10.2); NEUT % 80.1 % (42.8-82.8); PLATELET COUNT 182 K/MM3 (134-434); RBC 3.77 M/mm3 (3.60-5.2); RDW 14.9 % (11.6-15.6); WHITE BLOOD COUNT 12.1 K/mm3 (4.0-10.0)
[2019-09-11] MEDS: LORazepam 2 MG/ML SDV VIAL IVPUSH PRN ×3 (08:46→21:05)
--- NOTE | 2019-09-11 08:49 | PN ---
Progress Note (short form) - Note Progress Note: Post op day#2.S/P T1-S1 decompression with fusion under Ga uneventful.P 105,BP 143/85 and Spo2 99 on o2 3L.Patient stable and c/o pain score 6-8/10 on dilaudid customer experience leader.Will add Neurontin to it and will f/u.
--- NOTE | 2019-09-11 08:55 | PN ---
Progress Note (short form) - Note Progress Note: Neurology HISTORY OF PRESENT ILLNESS: 59 y/o female with hx of multiple (~30) back and spine surgeries, complex global myofascial pain syndrome, recurrent spinal stenosis, multiple sclerosis, mechanical thoracolumbar instability, admitted for surgical intervention and per notes completed: 1) inspection fusion mass (c-spine), 2) T1-3 laminectomies, 3) C7-T4 in situ fusion, 4) Inspection fusion mass (thoracolumbar spine), 5) posterior instrumentation T8-S1, 6) posteroir arthrodesis T8-S1, 7) bone allograft, 8) bone autograft, 9) complex wound closure (60cm). 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 Complaints of pain and pain mgmt has been consulted. Extensive conversation regarding her MS history which dates back to >10 years and reports previously on BetaSeron but felt no difference. States last MRI brain was 1 year ago, offered repeat which patient would like to defer and reports prior imaging stable and states she will not be able to stay flat and tolerate procedure. She does not want to start on MS meds and would like to focus on spinal mgmt at this time. As outpatient, would advise MRI brain with and without contrast to start with. Discussed the same with the patient this morning and again she confirmed desire did not have any further evaluation of her multiple sclerosis. Still complaining of pain. Discussed with the ICU nurse who is monitoring patient closely. Active Medications Acetaminophen (Ofirmev Injection -) 1,000 mg IVPB Q8H ARNIE Stop: 09/15/19 16:59 Last Admin: 09/11/19 08:34 Dose: 1,000 mg Amitriptyline HCl (Elavil -) 100 mg PO HS ARNIE Last Admin: 09/10/19 23:59 Dose: Not Given Dexamethasone Sodium Phosphate (Decadron Injection -) 4 mg IVPUSH ONCE PRN PRN Reason: NAUSEA AND/OR VOMITING Last Admin: 09/11/19 06:25 Dose: 4 mg Diazepam (Valium Injection -) 10 mg IVPUSH Q8H PRN PRN Reason: MUSCLE SPASMS Diphenhydramine HCl (Benadryl Injection -) 12.5 mg IVPUSH ONCE PRN PRN Reason: FOR ITCHING Gabapentin (Neurontin -) 300 mg PO TID ARNIE Hydromorphone HCl (Hydromorphone 10 Mg/50 Ml-Ns) 10 mg RN REHABILITATION RN REHABILITATION ARNIE; Protocol Stop: 09/16/19 17:01 Last Admin: 09/10/19 20:37 Dose: 0.5 mg Lactated Ringer's (Lactated Ringers Solution) 1,000 mls @ 125 mls/hr IV ASDIR ARNIE Last Admin: 09/10/19 17:00 Dose: 125 mls/hr Lorazepam (Ativan Injection -) 2 mg IVPUSH Q6H PRN PRN Reason: MUSCLE SPASMS Last Admin: 09/11/19 08:46 Dose: 2 mg Magnesium Sulfate (Magnesium Sulfate) 1 gm IVPB ONCE ONE Stop: 09/11/19 09:01 Last Admin: 09/11/19 08:35 Dose: 1 gm Ondansetron HCl (Zofran Injection) 4 mg IVPUSH Q6H PRN PRN Reason: NAUSEA AND/OR VOMITING Last Admin: 09/10/19 15:55 Dose: 4 mg Potassium Phos/Sodium Phos (Phos-Nak Packet -) 2 packet PO ONCE ONE Stop: 09/11/19 09:01 Last Admin: 09/11/19 08:35 Dose: 2 packet Promethazine HCl (Phenergan Injection -) 12.5 mg IVPUSH Q6H PRN PRN Reason: NAUSEA-FOR RESCUE AFTER 15 MIN Promethazine HCl (Phenergan Injection -) 12.5 mg IVPB Q6H PRN PRN Reason: NAUSEA AND/OR VOMITING PHYSICAL EXAMINATION Vital Signs Period Temp Pulse Resp BP Sys/Gallagher Pulse Ox Last 24 Hr 98.4 F-100.1 F 88-107 10-20 99-158/62-91 96-100 GENERAL: Awake, alert, and fully oriented, in no acute distress. HEAD: Normal with no signs of trauma. EYES: Pupils equal, round and reactive to light, extraocular movements intact, sclera anicteric, conjunctiva clear. No lid lag. EARS, NOSE, THROAT: Ears normal, nares patent, oropharynx clear without exudates. Moist mucous membranes. NECK: Normal range of motion, supple without lymphadenopathy, JVD, or masses. LUNGS: Breath sounds equal, clear to auscultation bilaterally. No wheezes, and no crackles. No accessory muscle use. HEART: Regular rate and rhythm, normal S1 and S2 without murmur, rub or gallop. ABDOMEN: Soft, nontender, not distended, normoactive bowel sounds, no guarding, no rebound, no masses. No hepatomegaly or splenomegaly. MUSCULOSKELETAL: Normal range of motion at all joints. No bony deformities or tenderness. No CVA tenderness. UPPER EXTREMITIES: 2+ pulses, warm, well-perfused. No cyanosis. No clubbing. Cap refill <2 seconds. No peripheral edema. LOWER EXTREMITIES: 2+ pulses, warm, well-perfused. No calf tenderness. No peripheral edema. NEUROLOGICAL: Cranial nerves II-XII intact. Normal speech. Normal gait. PSYCHIATRIC: Cooperative. Good eye contact. Appropriate mood and affect. SKIN: Warm, dry, normal turgor, no rashes or lesions noted. CBCD WBC 12.1 K/mm3 (4.0-10.0) H 09/11/19 05:20 RBC 3.77 M/mm3 (3.60-5.2) 09/11/19 05:20 Hgb 11.3 GM/dL (10.7-15.3) 09/11/19 05:20 Hct 34.2 % (32.4-45.2) 09/11/19 05:20 MCV 90.7 fl (80-96) 09/11/19 05:20 MCHC 33.0 g/dl (32.0-36.0) 09/11/19 05:20 RDW 14.9 % (11.6-15.6) 09/11/19 05:20 Plt Count 182 K/MM3 (134-434) 09/11/19 05:20 MPV 9.0 fl (7.5-11.1) 09/11/19 05:20 CMP Sodium 139 mmol/L (136-145) 09/11/19 05:20 Potassium 4.3 mmol/L (3.5-5.1) 09/11/19 05:20 Chloride 101 mmol/L (98-107) 09/11/19 05:20 Carbon Dioxide 34 mmol/L (21-32) H 09/11/19 05:20 Anion Gap 3 MMOL/L (8-16) L 09/11/19 05:20 BUN 6.0 mg/dL (7-18) L 09/11/19 05:20 Creatinine 0.4 mg/dL (0.55-1.3) L 09/11/19 05:20 Random Glucose 96 mg/dL (74-106) 09/11/19 05:20 Calcium 8.2 mg/dL (8.5-10.1) L 09/11/19 05:20 Total Bilirubin 0.6 mg/dL (0.2-1) 09/11/19 05:20 AST 35 U/L (15-37) 09/11/19 05:20 ALT 16 U/L (13-61) 09/11/19 05:20 Alkaline Phosphatase 87 U/L (45-117) 09/11/19 05:20 Total Protein 5.4 g/dl (6.4-8.2) L 09/11/19 05:20 Albumin 2.6 g/dl (3.4-5.0) L 09/11/19 05:20 ASSESSMENT/PLAN: 59 y/o female with hx of multiple (~30) back and spine surgeries, complex global myofascial pain syndrome, recurrent spinal stenosis, multiple sclerosis, mechanical thoracolumbar instability, POD #0 s/p 1) inspection fusion mass (c- spine), 2) T1-3 laminectomies, 3) C7-T4 in situ fusion, 4) Inspection fusion mass (thoracolumbar spine), 5) posterior instrumentation T8-S1, 6) posteroir arthrodesis T8-S1, 7) bone allograft, 8) bone autograft, 9) complex wound closure (60cm). 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 Complaints of pain and pain mgmt has been consulted. Extensive conversation regarding her MS history which dates back to > 10 years and reports previously on BetaSeron but felt no difference. States last MRI brain was 1 year ago, offered repeat which patient would like to defer and reports prior imaging stable and states she will not be able to stay flat and tolerate procedure. She does not want to start on MS meds and would like to focus on spinal mgmt at this time. As outpatient, would advise MRI brain with and without contrast to start with. Follow up pain mgmt, physical therapy as tolerated. Will need rehab placement, per notes being cconsidered for Lc but the patient reported she would prefer facility near her home. Ortho follow up and medical optimization recommended. Discussed with ICU nurse. Critical care time 35 mins.
[2019-09-11] MEDS ORDERED: MAGNESIUM SULF 50% (8.12 MEQ/2 ML-1 GM VIAL) IVPB ONE (09:00)
[2019-09-11] MEDS ORDERED: NAPH,MB-DB/K PH,MBDB POWDER PACKET PO ONE (09:00)
[2019-09-11] MEDS ORDERED: POTASSIUM PHOSPHATE 15 MM in SODIUM CHLORIDE 250 ML IVPB ONE (09:00)
[2019-09-11 09:28] LABS: EPI CELLS 1.7 /HPF (0-5/HPF); HYALINE CASTS 5 /lpf (0-8); PH,URINE 8.5 (5.0-8.0); URINE APPEARANCE CLEAR; URINE BACTERIA 10.5 /hpf (NEGATIVE); URINE BILIRUBIN NEGATIVE (NEGATIVE); URINE COLOR YELLOW; URINE GLUCOSE (UA) NEGATIVE (NEGATIVE); URINE KETONE NEGATIVE (NEGATIVE); URINE LEUK ESTERASE NEGATIVE (NEGATIVE); URINE NITRITE NEGATIVE (NEGATIVE); URINE PROTEIN NEGATIVE (NEGATIVE); URINE RBC 3 /hpf (0-4); URINE UROBILINOGEN 0.2 mg/dL (0.2-1.0); URINE WBC 2 /hpf (0-5)
--- NOTE | 2019-09-11 12:06 | PN ---
Teaching Attending Note Name of Resident: Aubrey Cruz ATTENDING PHYSICIAN STATEMENT I saw and evaluated the patient. I reviewed the resident's note and discussed the case with the resident. I agree with the resident's findings and plan as documented. SUBJECTIVE: Pt seen and examined in the ICU. Still with uncontrolled pain. No fevers or chills. No shortness of breath or chest pain. OBJECTIVE: Vital Signs Period Temp Pulse Resp BP Sys/Gallagher Pulse Ox Last 24 Hr 98.4 F-99.9 F 88-107 10-20 102-158/65-91 96-100 Intake & Output 09/08/19 09/09/19 09/10/19 09/11/19 23:59 23:59 23:59 23:59 Intake Total 4050 3058 1750 Output Total 2300 1970 3600 Balance 1750 1088 -1850 Weight 81.647 kg Gen: NAD at rest Heart: RRR Lung: decreased breath sounds at the bases Abd: soft, nontender Ext: no edema Drain with serosanguinous fluid CBC, BMP 09/11/19 05:20 09/11/19 05:20 Active Medications Acetaminophen (Ofirmev Injection -) 1,000 mg IVPB Q8H ARNIE Stop: 09/15/19 16:59 Last Admin: 09/11/19 08:34 Dose: 1,000 mg Amitriptyline HCl (Elavil -) 100 mg PO HS ARNIE Last Admin: 09/10/19 23:59 Dose: Not Given Dexamethasone Sodium Phosphate (Decadron Injection -) 4 mg IVPUSH ONCE PRN PRN Reason: NAUSEA AND/OR VOMITING Last Admin: 09/11/19 06:25 Dose: 4 mg Diazepam (Valium Injection -) 10 mg IVPUSH Q8H PRN PRN Reason: MUSCLE SPASMS Diphenhydramine HCl (Benadryl Injection -) 12.5 mg IVPUSH ONCE PRN PRN Reason: FOR ITCHING Gabapentin (Neurontin -) 300 mg PO TID ARNIE Hydromorphone HCl (Hydromorphone 10 Mg/50 Ml-Ns) 10 mg SCARFING MACHINE OPERATOR SCARFING MACHINE OPERATOR ARNIE; Protocol Stop: 09/16/19 17:01 Last Admin: 09/10/19 20:37 Dose: 0.5 mg Lactated Ringer's (Lactated Ringers Solution) 1,000 mls @ 125 mls/hr IV ASDIR ARNIE Last Admin: 09/10/19 17:00 Dose: 125 mls/hr Lorazepam (Ativan Injection -) 2 mg IVPUSH Q6H PRN PRN Reason: MUSCLE SPASMS Last Admin: 09/11/19 08:46 Dose: 2 mg Ondansetron HCl (Zofran Injection) 4 mg IVPUSH Q6H PRN PRN Reason: NAUSEA AND/OR VOMITING Last Admin: 09/10/19 15:55 Dose: 4 mg Promethazine HCl (Phenergan Injection -) 12.5 mg IVPUSH Q6H PRN PRN Reason: NAUSEA-FOR RESCUE AFTER 15 MIN Promethazine HCl (Phenergan Injection -) 12.5 mg IVPB Q6H PRN PRN Reason: NAUSEA AND/OR VOMITING ASSESSMENT AND PLAN: Progressive Kyphoscoliosis s/p T1-T3 Laminectomies/C7-T4 Fusion/T8-S1 Posterior Instrumentation/Arthrodesis - pain control - incentive spirometry - IVF - monitor drain output - activity/diet/DVT prophylaxis per surgery
--- NOTE | 2019-09-11 12:55 | PN ---
Physical Exam: SUBJECTIVE: Patient seen and examined. She reports back and bilateral leg pain that is sharp and burning. She rates it 9.5/10. She denies chest pain, shortness of breath, fever, chills, nausea, and vomiting. OBJECTIVE: Vital Signs Period Temp Pulse Resp BP Sys/Gallagher Pulse Ox Last 24 Hr 98.4 F-99.9 F 88-107 10-20 102-158/65-91 96-100 GENERAL: The patient is awake, alert, and fully oriented, in mild distress HEAD: Normal with no signs of trauma. EYES: PERRL, extraocular movements intact ENT: Ears normal, nares patent, moist mucous membranes. NECK: Trachea midline, full range of motion, supple. LUNGS: Breath sounds equal, clear to auscultation bilaterally, no accessory muscle use. HEART: Regular rate and rhythm, no murmur ABDOMEN: Soft, nontender, nondistended, normoactive bowel sounds, +flatus BACK: Hemovac draining reddish-brown fluid. EXTREMITIES: Warm, well-perfused, no edema. Can move toes L>R. Sensation intact. NEUROLOGICAL: Normal speech PSYCH: Tearful SKIN: Warm, dry, normal turgor hemovac drain: 370cc guzman: 3600cc Laboratory Results - last 24 hr 09/11/19 09/11/19 09/11/19 05:20 05:20 07:00 WBC 12.1 H RBC 3.77 Hgb 11.3 Hct 34.2 MCV 90.7 MCH 30.0 MCHC 33.0 RDW 14.9 Plt Count 182 MPV 9.0 Absolute Neuts (auto) 9.7 H Neutrophils % 80.1 D Lymphocytes % 12.5 D Monocytes % 5.9 Eosinophils % 1.3 Basophils % 0.2 Nucleated RBC % 0 Sodium 139 Potassium 4.3 Chloride 101 Carbon Dioxide 34 H Anion Gap 3 L BUN 6.0 L Creatinine 0.4 L Est GFR (CKD-EPI)AfAm 134.00 Est GFR (CKD-EPI)NonAf 115.62 Random Glucose 96 Calcium 8.2 L Phosphorus 2.3 L Magnesium 1.7 L Total Bilirubin 0.6 AST 35 ALT 16 Alkaline Phosphatase 87 Total Protein 5.4 L Albumin 2.6 L Urine Color Yellow Urine Appearance Clear Urine pH 8.5 H Ur Specific [place] 1.012 Urine Protein Negative Urine Glucose (UA) Negative Urine Ketones Negative Urine Blood Trace Urine Nitrite Negative Urine Bilirubin Negative Urine Urobilinogen 0.2 Ur Leukocyte Esterase Negative Urine WBC (Auto) 2 Urine RBC (Auto) 3 Urine Casts (Auto) 5 U Epithel Cells (Auto) 1.7 Urine Bacteria (Auto) 10.5 Active Medications Generic Name Dose Route Start Last Admin Trade Name Freq PRN Reason Stop Dose Admin Acetaminophen 1,000 mg 09/09/19 17:00 09/11/19 08:34 Ofirmev Injection - IVPB 09/15/19 16:59 1,000 mg Q8H ARNIE Administration Amitriptyline HCl 100 mg 09/10/19 16:26 09/10/19 23:59 Elavil - PO Not Given HS [facility] Dexamethasone Sodium Phosphate 4 mg 09/09/19 16:58 09/11/19 06:25 Decadron Injection - IVPUSH 4 mg ONCE PRN Administration NAUSEA AND/OR VOMITING Diazepam 10 mg 09/09/19 16:47 Valium Injection - IVPUSH Q8H PRN MUSCLE SPASMS Diphenhydramine HCl 12.5 mg 09/09/19 16:58 Benadryl Injection - IVPUSH ONCE PRN FOR ITCHING Gabapentin 300 mg 09/11/19 14:00 Neurontin - PO TID ARNIE Hydromorphone HCl 10 mg 09/10/19 09:59 09/10/19 20:37 Hydromorphone 10 Mg/50 Ml-Ns FLAG DECORATOR 09/16/19 17:01 0.5 mg FLAG DECORATOR ARNIE Administration Protocol Lactated Ringer's 1,000 mls @ 125 mls/hr 09/09/19 17:00 09/10/19 17:00 Lactated Ringers Solution IV 125 mls/hr ASDIR ARNIE Administration Lorazepam 2 mg 09/10/19 10:27 09/11/19 08:46 Ativan Injection - IVPUSH 2 mg Q6H PRN Administration MUSCLE SPASMS Ondansetron HCl 4 mg 09/09/19 16:47 09/10/19 15:55 Zofran Injection IVPUSH 4 mg Q6H PRN Administration NAUSEA AND/OR VOMITING Promethazine HCl 12.5 mg 09/09/19 16:58 Phenergan Injection - IVPUSH Q6H PRN NAUSEA-FOR RESCUE AFTER 15 MIN Promethazine HCl 12.5 mg 09/09/19 16:58 Phenergan Injection - IVPB Q6H PRN NAUSEA AND/OR VOMITING ASSESSMENT/PLAN: Nava Tafoya is a 59y/o female with multiple (~30) back and spine surgeries, complex global myofascial pain syndrome, recurrent spinal stenosis, multiple sclerosis, and mechanical thoracolumbar instability who presents for spinal surgery. This includes inspection fusion mass (c-spine), T1-3 laminectomies, C7- T4 in situ fusion, inspection fusion mass (thoracolumbar spine), posterior instrumentation T8-S1, posterior arthrodesis T8-S1, bone allograft, bone autograft, and complex wound closure (60cm). She is POD 2 and is having significant back pain. #complex spinal pain 2/2 mechanical instability and myofascial decompensation s/ p multi-level spinal intervention, POD 2 -scheduled IV tylenol -dilaudid FLAG DECORATOR pump 0.5mg lockout Q8min, no basal rate -gabapentin 300mg TID -Ativan 2mg Q6H PRN muscle spasms -zofran PRN -no NSAIDs -mechanical SCDs -PT -no bending, lifting (>5 lbs), or twisting for 9-12 months, f/u 7-10 days after rehab d/c FEN LR 125mL/hr monitor labs full liquid diet dispo: ICU SNF Visit type - Emergency Visit Emergency Visit: Yes ED Registration Date: 09/09/19 Care time: The patient presented to the Emergency Department on the above date and was hospitalized for further evaluation of their emergent condition. - New Patient This patient is new to me today: Yes Date on this admission: 09/11/19 - Critical Care Critical Care patient: Yes Total Critical Care Time (in minutes): 35 Critical Care Statement: The care of this patient involved high complexity decision making to prevent further life threatening deterioration of the patient 's condition and/or to evaluate & treat vital organ system(s) failure or risk of failure. - Discharge Referral Referred to [facility] Med [facility] No ATTENDING PHYSICIAN STATEMENT I saw and evaluated the patient. I reviewed the resident's note and discussed the case with the resident. I agree with the resident's findings and plan as documented. SUBJECTIVE: OBJECTIVE: ASSESSMENT AND PLAN:
--- NOTE | 2019-09-11 13:03 | PN ---
Physical Exam: SUBJECTIVE: Patient seen and examined at bedside in the ICU. Patient continues to report that pain is not controlled. Denies fever/chills/chest pain/shortness of breath. OBJECTIVE: Vital Signs Period Temp Pulse Resp BP Sys/Gallagher Pulse Ox Last 24 Hr 98.4 F-99.9 F 88-107 10- 102-158/65-91 96-100 GENERAL: The patient is awake, alert, in no acute distress. HEAD: Normal with no signs of trauma. EYES: PERRL, extraocular movements intact, sclera anicteric, conjunctiva clear. No ptosis. ENT: Ears normal, nares patent, oropharynx clear without exudates, moist mucous membranes. NECK: Trachea midline, full range of motion, supple. LUNGS: Breath sounds equal, clear to auscultation bilaterally, no wheezes, no crackles, no accessory muscle use. HEART: Regular rate and rhythm, S1, S2 without murmur, rub or gallop. ABDOMEN: Soft, nontender, nondistended, no guarding, no rebound, no masses. BACK: drain in place with serosanguinous fluid EXTREMITIES: 2+ pulses, warm, well-perfused, no edema. Decreased strength in right upper/lower extremity, unchanged from prior. NEUROLOGICAL: Cranial nerves II through XII grossly intact. SKIN: Warm, dry, normal turgor, no rashes or lesions noted Laboratory Results - last 24 hr 09/11/19 09/11/19 09/11/19 05:20 05:20 07:00 WBC 12.1 H RBC 3.77 Hgb 11.3 Hct 34.2 MCV 90.7 MCH 30.0 MCHC 33.0 RDW 14.9 Plt Count 182 MPV 9.0 Absolute Neuts (auto) 9.7 H Neutrophils % 80.1 D Lymphocytes % 12.5 D Monocytes % 5.9 Eosinophils % 1.3 Basophils % 0.2 Nucleated RBC % 0 Sodium 139 Potassium 4.3 Chloride 101 Carbon Dioxide 34 H Anion Gap 3 L BUN 6.0 L Creatinine 0.4 L Est GFR (CKD-EPI)AfAm 134.00 Est GFR (CKD-EPI)NonAf 115.62 Random Glucose 96 Calcium 8.2 L Phosphorus 2.3 L Magnesium 1.7 L Total Bilirubin 0.6 AST 35 ALT 16 Alkaline Phosphatase 87 Total Protein 5.4 L Albumin 2.6 L Urine Color Yellow Urine Appearance Clear Urine pH 8.5 H Ur Specific [place] 1.012 Urine Protein Negative Urine Glucose (UA) Negative Urine Ketones Negative Urine Blood Trace Urine Nitrite Negative Urine Bilirubin Negative Urine Urobilinogen 0.2 Ur Leukocyte Esterase Negative Urine WBC (Auto) 2 Urine RBC (Auto) 3 Urine Casts (Auto) 5 U Epithel Cells (Auto) 1.7 Urine Bacteria (Auto) 10.5 Active Medications Generic Name Dose Route Start Last Admin Trade Name Freq PRN Reason Stop Dose Admin Acetaminophen 1,000 mg 09/09/19 17:00 09/11/19 08:34 Ofirmev Injection - IVPB 09/15/19 16:59 1,000 mg Q8H ARNIE Administration Amitriptyline HCl 100 mg 09/10/19 16:26 09/10/19 23:59 Elavil - PO Not Given HS ARNIE Dexamethasone Sodium Phosphate 4 mg 09/09/19 16:58 09/11/19 06:25 Decadron Injection - IVPUSH 4 mg ONCE PRN Administration NAUSEA AND/OR VOMITING Diazepam 10 mg 09/09/19 16:47 Valium Injection - IVPUSH Q8H PRN MUSCLE SPASMS Diphenhydramine HCl 12.5 mg 09/09/19 16:58 Benadryl Injection - IVPUSH ONCE PRN FOR ITCHING Gabapentin 300 mg 09/11/19 14:00 Neurontin - PO TID ARNIE Hydromorphone HCl 10 mg 09/10/19 09:59 09/10/19 20:37 Hydromorphone 10 Mg/50 Ml-Ns MANAGER HEART FAILURE 09/16/19 17:01 0.5 mg MANAGER HEART FAILURE ARNIE Administration Protocol Lactated Ringer's 1,000 mls @ 125 mls/hr 09/09/19 17:00 09/10/19 17:00 Lactated Ringers Solution IV 125 mls/hr ASDIR ARNIE Administration Lorazepam 2 mg 09/10/19 10:27 09/11/19 08:46 Ativan Injection - IVPUSH 2 mg Q6H PRN Administration MUSCLE SPASMS Ondansetron HCl 4 mg 09/09/19 16:47 09/10/19 15:55 Zofran Injection IVPUSH 4 mg Q6H PRN Administration NAUSEA AND/OR VOMITING Promethazine HCl 12.5 mg 09/09/19 16:58 Phenergan Injection - IVPUSH Q6H PRN NAUSEA-FOR RESCUE AFTER 15 MIN Promethazine HCl 12.5 mg 09/09/19 16:58 Phenergan Injection - IVPB Q6H PRN NAUSEA AND/OR VOMITING ASSESSMENT/PLAN: 59 yo female with hx of multiple (~30) back and spine surgeries, complex global myofascial pain syndrome, recurrent spinal stenosis, multiple sclerosis, mechanical thoracolumbar instability, POD #0 s/p 1) inspection fusion mass (c- spine), 2) T1-3 laminectomies, 3) C7-T4 in situ fusion, 4) Inspection fusion mass (thoracolumbar spine), 5) posterior instrumentation T8-S1, 6) posteroir arthrodesis T8-S1, 7) bone allograft, 8) bone autograft, 9) complex wound closure (60cm). Ortho -pt/ot/rehab -Dr. Marina recniesha: consider 30 mg cymbalta, elevated HOB, mobilization, OOB to chair as tolerated -pt will likely require rehab on discharge -monitor drain output Neuro -pain mgmt consult (Dr. Khalil) -neuro consult (Dr. Bhakta) appreciated. - increased MANAGER HEART FAILURE to 0.5mg lockout q8 min, no basal rate. -c/w ativan IV for muscle spasms. -c/w Ofirmev 1000mg q6hr. no NSAIDs for pain control Resp -incentive spirometry -NC O2 w/ etCO2 monitoring ID -cefazolin x3 doses post-op F/E/N -IVF -trend lytes, replete PRN -full liquid diet -c/w guzman DVTppx: SCDs Dispo: continue ICU care Visit type - Emergency Visit Emergency Visit: No - New Patient This patient is new to me today: No - Critical Care Critical Care patient: Yes Total Critical Care Time (in minutes): 35 Critical Care Statement: The care of this patient involved high complexity decision making to prevent further life threatening deterioration of the patient 's condition and/or to evaluate & treat vital organ system(s) failure or risk of failure. ATTENDING PHYSICIAN STATEMENT I saw and evaluated the patient. I reviewed the resident's note and discussed the case with the resident. I agree with the resident's findings and plan as documented. SUBJECTIVE: OBJECTIVE: ASSESSMENT AND PLAN:
[2019-09-11] MEDS: GABAPENTIN 300 MG CAPSULE (FP) PO SCH (14:45)
--- NOTE | 2019-09-11 15:32 | PN ---
Teaching Attending Note Name of Resident: Lisandra Aceves ATTENDING PHYSICIAN STATEMENT I saw and evaluated the patient. I reviewed the resident's note and discussed the case with the resident. I agree with the resident's findings and plan as documented with exceptions below. SUBJECTIVE: patient seen and examined, still in pain, passing gas but no BM. OBJECTIVE: Vital Signs Period Temp Pulse Resp BP Sys/Gallagher Pulse Ox Last 24 Hr 98.4 F-99.4 F 88-107 10-20 102-158/65-91 96-100 Intake & Output 09/08/19 09/09/19 09/10/19 09/11/19 23:59 23:59 23:59 23:59 Intake Total 4050 3058 2070 Output Total 2300 1970 6600 Balance 1750 1088 -4530 Weight 180 lb General: lying in bed, mild distress from pain HEENT: Facial symmetry Neck: soft, supple Chest: no rales or wheezing anteriorly, but limited exam Abdomen:soft, obese, NT Extremities: no edema Drain with serosanguinous fluid Home Medications Medication Instructions Recorded Amitriptyline HCl [Elavil -] 50 mg PO HS 01/16/19 Oxycodone HCl 60 mg PO Q8H 01/16/19 HYDROmorphone [Dilaudid -] 8 mg PO Q6H 03/04/19 Cyclobenzaprine HCl 1 tab PO TID 03/05/19 LORazepam [Ativan] 2 mg PO TID tablet MDD 6mg 03/11/19 Amitriptyline HCl 100 mg PO TID 09/06/19 Active Medications Acetaminophen (Ofirmev Injection -) 1,000 mg IVPB Q8H [facility] Stop: 09/15/19 16:59 Last Admin: 09/11/19 08:34 Dose: 1,000 mg Amitriptyline HCl (Elavil -) 100 mg PO HS [facility] Last Admin: 09/10/19 23:59 Dose: Not Given Dexamethasone Sodium Phosphate (Decadron Injection -) 4 mg IVPUSH ONCE PRN PRN Reason: NAUSEA AND/OR VOMITING Last Admin: 09/11/19 06:25 Dose: 4 mg Diazepam (Valium Injection -) 10 mg IVPUSH Q8H PRN PRN Reason: MUSCLE SPASMS Diphenhydramine HCl (Benadryl Injection -) 12.5 mg IVPUSH ONCE PRN PRN Reason: FOR ITCHING Gabapentin (Neurontin -) 300 mg PO TID [facility] Last Admin: 09/11/19 14:45 Dose: 300 mg Hydromorphone HCl (Hydromorphone 10 Mg/50 Ml-Ns) 10 mg DECK SPECIALIST DECK SPECIALIST [facility]; Protocol Stop: 09/16/19 17:01 Last Admin: 09/10/19 20:37 Dose: 0.5 mg Lactated Ringer's (Lactated Ringers Solution) 1,000 mls @ 125 mls/hr IV ASDIR ARNIE Last Admin: 09/10/19 17:00 Dose: 125 mls/hr Lorazepam (Ativan Injection -) 2 mg IVPUSH Q6H PRN PRN Reason: MUSCLE SPASMS Last Admin: 09/11/19 15:16 Dose: 2 mg Ondansetron HCl (Zofran Injection) 4 mg IVPUSH Q6H PRN PRN Reason: NAUSEA AND/OR VOMITING Last Admin: 09/10/19 15:55 Dose: 4 mg Promethazine HCl (Phenergan Injection -) 12.5 mg IVPUSH Q6H PRN PRN Reason: NAUSEA-FOR RESCUE AFTER 15 MIN Promethazine HCl (Phenergan Injection -) 12.5 mg IVPB Q6H PRN PRN Reason: NAUSEA AND/OR VOMITING Laboratory Results - last 24 hr 09/11/19 09/11/19 09/11/19 05:20 05:20 07:00 WBC 12.1 H RBC 3.77 Hgb 11.3 Hct 34.2 MCV 90.7 MCH 30.0 MCHC 33.0 RDW 14.9 Plt Count 182 MPV 9.0 Absolute Neuts (auto) 9.7 H Neutrophils % 80.1 D Lymphocytes % 12.5 D Monocytes % 5.9 Eosinophils % 1.3 Basophils % 0.2 Nucleated RBC % 0 Sodium 139 Potassium 4.3 Chloride 101 Carbon Dioxide 34 H Anion Gap 3 L BUN 6.0 L Creatinine 0.4 L Est GFR (CKD-EPI)AfAm 134.00 Est GFR (CKD-EPI)NonAf 115.62 Random Glucose 96 Calcium 8.2 L Phosphorus 2.3 L Magnesium 1.7 L Total Bilirubin 0.6 AST 35 ALT 16 Alkaline Phosphatase 87 Total Protein 5.4 L Albumin 2.6 L Urine Color Yellow Urine Appearance Clear Urine pH 8.5 H Ur Specific [place] 1.012 Urine Protein Negative Urine Glucose (UA) Negative Urine Ketones Negative Urine Blood Trace Urine Nitrite Negative Urine Bilirubin Negative Urine Urobilinogen 0.2 Ur Leukocyte Esterase Negative Urine WBC (Auto) 2 Urine RBC (Auto) 3 Urine Casts (Auto) 5 U Epithel Cells (Auto) 1.7 Urine Bacteria (Auto) 10.5 ASSESSMENT AND PLAN: 59 year old woman with PMH of Multiple Sclerosis, Morphine allergy, Lumbar spine stenosis and Multiple back and spine surgeries, Complex global myofascial pain syndrome, Recurrent spinal stenosis, Multiple sclerosis, Mechanical thoracolumbar instability s/p spinal surgery -POD #1 1. Inspection fusion mass (cervical spine). 2. T1, T2, T3 laminectomies. 3. C7-T4 in situ fusion. 4. Inspection fusion mass ( thoracolumbar spine). 5. Posterior instrumentation T8-S1. 6. Posterior arthrodesis T8-S1. 7. Bone allograft. 8. Bone autograft. 9. Complex wound closure -Paraparesis -Hypophosphatemia -Hypomagnesemia -Multiple Sclerosis -Lumbar spinal stenosis -Complex global myofascial pain syndrome -Recurrent spinal stenosis -Mehcnaical thoracolumbar instability s/p spinal surgery Plan: Dilaudid DECK SPECIALIST, Neurology input noted. PO, drain management, DVTPPx per spine surgery replete luciana dispo ICU level of care currently total critical care time 32 min
[2019-09-11] MEDS: LACTATED RINGERS SOLUTION 1,000 ML IV SCH (16:59)
--- NOTE | 2019-09-11 17:14 | PATH ---
Surgical Pathology Report Patient Name: LALO SANCHES [facility]. Rec. #: [id number] /Age/Gender: 1960 (Age: 59) / F Account: [id number] Location: ICU REGULATORY COMPLIANCE SPECIALIST Taken: 09/09/2019 Received: 09/10/2019 Reported: 09/11/2019 Physicians: Humble Marina M.D. Specimen(s) Received POSTERIOR CERVICAL TISSUE Clinical History Disc degeneration Final Diagnosis POSTERIOR CERVICAL TISSUE, T1-PELVIS, LUMBAR DECOMPRESSION AND FUSION: SCANT DENSE FIBROCONNECTIVE TISSUE AND ADIPOSE TISSUE. Electronically Signed Renetta Blackman M.D. Gross Description Received in formalin labeled "posterior cervical tissue" is an irregular fragment of white-duran soft tissue measuring 0.8 x 0.7 x 0.7 cm. The specimen is bisected and entirely submitted one cassette. MLSZ/09/10/2019 sanml/09/10/2019
[2019-09-11] MEDS ORDERED: ONDANSETRON 4 MG/2 ML VIAL IVPUSH PRN ×2 (18:40→18:43)
[2019-09-11] MEDS ORDERED: DEXAMETHASONE SOD PHOSPHATE 4 MG/1 ML VIAL IVPUSH PRN ×2 (18:40→18:43)
[2019-09-11] MEDS ORDERED: PROMETHAZINE HCL 25 MG/1 ML VIAL IVPB PRN ×2 (18:40→18:43)
[2019-09-11] MEDS ORDERED: HYDROmorphone *PCA* 10MG/50ML DISP.SYRIN PCA SCH ×2 (18:45)
--- NOTE | 2019-09-11 19:16 | PN ---
Progress Note (short form) - Note Progress Note: POD#2 ICU Stable Awake Fully orientated TPS CVS Tachycardia Rest appears stable RESP AE equal bilaterally ABD Soft Distended DId pass flatus NEURO At baseline R arm improving MSKeletal Wound bandage Drain in situ ` Feet Bilateral equinus PLAN Continue Medical and nursing mx in ICU Log roll 30 to 45 minutes Pain MX as per anaesthesia team For pain mx consult when stable PT Mobilize all joints passively Sit Will perform Aguilar slide bilateraly and place feet in AFO and Ortho shoes with steel shank and rockerbottom soles
[2019-09-11] MEDS: HYDROmorphone *PCA* 10MG/50ML DISP.SYRIN PCA SCH (20:22)
[2019-09-11] MEDS ORDERED: PT OWN MED DRAWER 7, Y5N ONE (23:33)
[2019-09-12] MEDS: AMITRIPTYLINE HCL 25 MG TABLET (FP) PO SCH ×2 (00:42→21:49)
[2019-09-12] MEDS: HYDROmorphone *PCA* 10MG/50ML DISP.SYRIN PCA SCH ×3 (00:42→23:00)
[2019-09-12] MEDS: GABAPENTIN 300 MG CAPSULE (FP) PO SCH ×4 (00:43→21:58)
[2019-09-12] MEDS: ACETAMINOPHEN 1000 MG/100 ML VIAL (NON FORMULARY) IVPB SCH ×3 (00:48→17:42)
[2019-09-12] MEDS: LORazepam 2 MG/ML SDV VIAL IVPUSH PRN ×3 (03:49→18:15)
[2019-09-12 07:26] LABS: BASO % 0.2 % (0-2.0); EOS % 2.1 % (0-4.5); HEMATOCRIT 31.2 % (32.4-45.2); HEMOGLOBIN 10.5 GM/dL (10.7-15.3); LYMPH % 17.5 % (8-40); MCH 30.6 pg (25.7-33.7); MCHC 33.6 g/dl (32.0-36.0); MEAN CELL VOLUME 91.1 fl (80-96); MEAN PLT VOLUME 8.9 fl (7.5-11.1); NEUT % 73.2 % (42.8-82.8); PLATELET COUNT 180 K/MM3 (134-434); RBC 3.43 M/mm3 (3.60-5.2); RDW 14.9 % (11.6-15.6); WHITE BLOOD COUNT 9.9 K/mm3 (4.0-10.0)
[2019-09-12 07:50] LABS: ALBUMIN 2.3 g/dl (3.4-5.0); BILIRUBIN,TOTAL 0.6 mg/dL (0.2-1); BLOOD UREA NITROGEN 7.8 mg/dL (7-18); CALCIUM 8.1 mg/dL (8.5-10.1); CREATININE 0.3 mg/dL (0.55-1.3); MAGNESIUM 1.7 mg/dL (1.8-2.4); PHOSPHOROUS 2.3 mg/dL (2.5-4.9); POTASSIUM 3.9 mmol/L (3.5-5.1); TOT PROT 5.1 g/dl (6.4-8.2)
--- NOTE | 2019-09-12 08:06 | PN ---
Progress Note (short form) - Note Progress Note: Neurology HISTORY OF PRESENT ILLNESS: 59 y/o female with hx of multiple (~30) back and spine surgeries, complex global myofascial pain syndrome, recurrent spinal stenosis, multiple sclerosis, mechanical thoracolumbar instability, admitted for surgical intervention and per notes completed: 1) inspection fusion mass (c-spine), 2) T1-3 laminectomies, 3) C7-T4 in situ fusion, 4) Inspection fusion mass (thoracolumbar spine), 5) posterior instrumentation T8-S1, 6) posteroir arthrodesis T8-S1, 7) bone allograft, 8) bone autograft, 9) complex wound closure (60cm). 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 Complaints of pain and pain mgmt has been consulted. Extensive conversation regarding her MS history which dates back to >10 years and reports previously on BetaSeron but felt no difference. States last MRI brain was 1 year ago, offered repeat which patient would like to defer and reports prior imaging stable and states she will not be able to stay flat and tolerate procedure. She does not want to start on MS meds and would like to focus on spinal mgmt at this time. As outpatient, would advise MRI brain with and without contrast to start with. Discussed the same with the patient this morning and again she confirmed desire did not have any further evaluation of her multiple sclerosis. Reviewed note from Ortho, consider lauren slide bilterally for feet. Patient aware of this. Neurologically no significant changes. Active Medications Acetaminophen (Ofirmev Injection -) 1,000 mg IVPB Q8H ARNIE Stop: 09/15/19 16:59 Last Admin: 09/12/19 00:48 Dose: 1,000 mg Amitriptyline HCl (Elavil -) 100 mg PO HS ARNIE Last Admin: 09/12/19 00:42 Dose: 100 mg Dexamethasone Sodium Phosphate (Decadron Injection -) 4 mg IVPUSH ONCE PRN PRN Reason: NAUSEA AND/OR VOMITING Diazepam (Valium Injection -) 10 mg IVPUSH Q8H PRN PRN Reason: MUSCLE SPASMS Diphenhydramine HCl (Benadryl Injection -) 12.5 mg IVPUSH ONCE PRN PRN Reason: FOR ITCHING Last Admin: 09/11/19 21:05 Dose: 12.5 mg Gabapentin (Neurontin -) 300 mg PO TID [facility] Last Admin: 09/12/19 06:48 Dose: Not Given Hydromorphone HCl (Hydromorphone 10 Mg/50 Ml-Ns) 10 mg ASSEMBLER FLUORESCENT LIGHTS ASSEMBLER FLUORESCENT LIGHTS [facility]; Protocol Stop: 09/12/19 18:44 Last Admin: 09/12/19 01:07 Dose: 10 mg Lactated Ringer's (Lactated Ringers Solution) 1,000 mls @ 125 mls/hr IV ASDIR ARNIE Last Admin: 09/11/19 16:59 Dose: 125 mls/hr Lorazepam (Ativan Injection -) 2 mg IVPUSH Q6H PRN PRN Reason: MUSCLE SPASMS Last Admin: 09/12/19 03:49 Dose: 2 mg Ondansetron HCl (Zofran Injection) 4 mg IVPUSH Q6H PRN PRN Reason: NAUSEA AND/OR VOMITING Last Admin: 09/10/19 15:55 Dose: 4 mg Ondansetron HCl (Zofran Injection) 4 mg IVPUSH Q4H PRN PRN Reason: NAUSEA AND/OR VOMITING Promethazine HCl (Phenergan Injection -) 12.5 mg IVPB Q6H PRN PRN Reason: NAUSEA AND/OR VOMITING PHYSICAL EXAMINATION Vital Signs Period Temp Pulse Resp BP Sys/Gallagher Pulse Ox Last 24 Hr 98 F-99.4 F 63-109 11-20 91-155/54-86 90-103 GENERAL: Awake, alert, and fully oriented, in no acute distress. HEAD: Normal with no signs of trauma. EYES: Pupils equal, round and reactive to light, extraocular movements intact, sclera anicteric, conjunctiva clear. No lid lag. EARS, NOSE, THROAT: Ears normal, nares patent, oropharynx clear without exudates. Moist mucous membranes. NECK: Normal range of motion, supple without lymphadenopathy, JVD, or masses. LUNGS: Breath sounds equal, clear to auscultation bilaterally. No wheezes, and no crackles. No accessory muscle use. HEART: Regular rate and rhythm, normal S1 and S2 without murmur, rub or gallop. ABDOMEN: Soft, nontender, not distended, normoactive bowel sounds, no guarding, no rebound, no masses. No hepatomegaly or splenomegaly. MUSCULOSKELETAL: Normal range of motion at all joints. No bony deformities or tenderness. No CVA tenderness. UPPER EXTREMITIES: 2+ pulses, warm, well-perfused. No cyanosis. No clubbing. Cap refill <2 seconds. No peripheral edema. LOWER EXTREMITIES: 2+ pulses, warm, well-perfused. No calf tenderness. No peripheral edema. NEUROLOGICAL: Cranial nerves II-XII intact. Normal speech. Normal gait. PSYCHIATRIC: Cooperative. Good eye contact. Appropriate mood and affect. SKIN: Warm, dry, normal turgor, no rashes or lesions noted. CBCD WBC 9.9 K/mm3 (4.0-10.0) 09/12/19 05:45 RBC 3.43 M/mm3 (3.60-5.2) L 09/12/19 05:45 Hgb 10.5 GM/dL (10.7-15.3) L 09/12/19 05:45 Hct 31.2 % (32.4-45.2) L 09/12/19 05:45 MCV 91.1 fl (80-96) 09/12/19 05:45 MCHC 33.6 g/dl (32.0-36.0) 09/12/19 05:45 RDW 14.9 % (11.6-15.6) 09/12/19 05:45 Plt Count 180 K/MM3 (134-434) 09/12/19 05:45 MPV 8.9 fl (7.5-11.1) 09/12/19 05:45 CMP Sodium 141 mmol/L (136-145) 09/12/19 05:45 Potassium 3.9 mmol/L (3.5-5.1) 09/12/19 05:45 Chloride 105 mmol/L (98-107) 09/12/19 05:45 Carbon Dioxide 34 mmol/L (21-32) H 09/12/19 05:45 Anion Gap 2 MMOL/L (8-16) L 09/12/19 05:45 BUN 7.8 mg/dL (7-18) 09/12/19 05:45 Creatinine 0.3 mg/dL (0.55-1.3) L 09/12/19 05:45 Random Glucose 79 mg/dL (74-106) 09/12/19 05:45 Calcium 8.1 mg/dL (8.5-10.1) L 09/12/19 05:45 Total Bilirubin 0.6 mg/dL (0.2-1) 09/12/19 05:45 AST 23 U/L (15-37) 09/12/19 05:45 ALT 12 U/L (13-61) L 09/12/19 05:45 Alkaline Phosphatase 76 U/L (45-117) 09/12/19 05:45 Total Protein 5.1 g/dl (6.4-8.2) L 09/12/19 05:45 Albumin 2.3 g/dl (3.4-5.0) L 09/12/19 05:45 ASSESSMENT/PLAN: 59 y/o female with hx of multiple (~30) back and spine surgeries, complex global myofascial pain syndrome, recurrent spinal stenosis, multiple sclerosis, mechanical thoracolumbar instability, POD #0 s/p 1) inspection fusion mass (c- spine), 2) T1-3 laminectomies, 3) C7-T4 in situ fusion, 4) Inspection fusion mass (thoracolumbar spine), 5) posterior instrumentation T8-S1, 6) posteroir arthrodesis T8-S1, 7) bone allograft, 8) bone autograft, 9) complex wound closure (60cm). 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 Complaints of pain and pain mgmt has been consulted. Extensive conversation regarding her MS history which dates back to > 10 years and reports previously on BetaSeron but felt no difference. States last MRI brain was 1 year ago, offered repeat which patient would like to defer and reports prior imaging stable and states she will not be able to stay flat and tolerate procedure. She does not want to start on MS meds and would like to focus on spinal mgmt at this time. As outpatient, would advise MRI brain with and without contrast to start with. Follow up pain mgmt, physical therapy as tolerated. Will need rehab placement, per notes being cconsidered for [facility] but the patient reported she would prefer facility near her home. Ortho follow up note reviewed, being consider for [facility] koenig per note. Continued medical optimization recommended. Still not moving RLE off bed. Critical care time 35 mins.
--- NOTE | 2019-09-12 08:53 | PN ---
Physical Exam: SUBJECTIVE: Patient seen and examined at bedside.pt states her pain still isnt well controlled. she states she is supposed to go for another procedure on monday. she denies sob or chest pain. she denies calf tenderness. pt states her UE weakness is improving OBJECTIVE: Vital Signs Period Temp Pulse Resp BP Sys/Gallagher Pulse Ox Last 24 Hr 98 F-99.4 F 63-109 11-20 91-155/54-86 90-103 GENERAL: The patient is awake, alert, and fully oriented, in no acute distress. LUNGS: Breath sounds equal, clear to auscultation bilaterally, no accessory muscle use. HEART: Regular rate and rhythm, S1, S2 ABDOMEN: Soft, nontender, nondistended, normoactive bowel sounds, no guarding EXTREMITIES: 2+ pulses, warm, well-perfused, no edema. SKIN: Warm, dry, normal turgor, no rashes or lesions noted Laboratory Results - last 24 hr 09/11/19 09/12/19 09/12/19 07:00 05:45 05:45 WBC 9.9 RBC 3.43 L Hgb 10.5 L Hct 31.2 L MCV 91.1 MCH 30.6 MCHC 33.6 RDW 14.9 Plt Count 180 MPV 8.9 Absolute Neuts (auto) 7.2 Neutrophils % 73.2 Lymphocytes % 17.5 D Monocytes % 7.0 Eosinophils % 2.1 Basophils % 0.2 Nucleated RBC % 0 Sodium 141 Potassium 3.9 Chloride 105 Carbon Dioxide 34 H Anion Gap 2 L BUN 7.8 Creatinine 0.3 L Est GFR (CKD-EPI)AfAm 147.31 Est GFR (CKD-EPI)NonAf 127.10 Random Glucose 79 Calcium 8.1 L Phosphorus 2.3 L Magnesium 1.7 L Total Bilirubin 0.6 AST 23 ALT 12 L Alkaline Phosphatase 76 Total Protein 5.1 L Albumin 2.3 L Urine Color Yellow Urine Appearance Clear Urine pH 8.5 H Ur Specific [place] 1.012 Urine Protein Negative Urine Glucose (UA) Negative Urine Ketones Negative Urine Blood Trace Urine Nitrite Negative Urine Bilirubin Negative Urine Urobilinogen 0.2 Ur Leukocyte Esterase Negative Urine WBC (Auto) 2 Urine RBC (Auto) 3 Urine Casts (Auto) 5 U Epithel Cells (Auto) 1.7 Urine Bacteria (Auto) 10.5 Current Medications Acetaminophen (Ofirmev Injection -) 1,000 mg IVPB Q8H [facility] Stop: 09/15/19 16:59 Last Admin: 09/12/19 00:48 Dose: 1,000 mg Amitriptyline HCl (Elavil -) 100 mg PO HS [facility] Last Admin: 09/12/19 00:42 Dose: 100 mg Dexamethasone Sodium Phosphate (Decadron Injection -) 4 mg IVPUSH ONCE PRN PRN Reason: NAUSEA AND/OR VOMITING Diazepam (Valium Injection -) 10 mg IVPUSH Q8H PRN PRN Reason: MUSCLE SPASMS Diphenhydramine HCl (Benadryl Injection -) 12.5 mg IVPUSH ONCE PRN PRN Reason: FOR ITCHING Last Admin: 09/11/19 21:05 Dose: 12.5 mg Gabapentin (Neurontin -) 300 mg PO TID [facility] Last Admin: 09/12/19 06:48 Dose: Not Given Hydromorphone HCl (Hydromorphone 10 Mg/50 Ml-Ns) 10 mg MANUFACTURING MACHINE OPERATOR MANUFACTURING MACHINE OPERATOR [facility]; Protocol Stop: 09/12/19 18:44 Last Admin: 09/12/19 01:07 Dose: 10 mg Lactated Ringer's (Lactated Ringers Solution) 1,000 mls @ 125 mls/hr IV ASDIR [facility] Last Admin: 09/11/19 16:59 Dose: 125 mls/hr Lorazepam (Ativan Injection -) 2 mg IVPUSH Q6H PRN PRN Reason: MUSCLE SPASMS Last Admin: 09/12/19 03:49 Dose: 2 mg Magnesium Sulfate (Magnesium Sulfate) 1 gm IVPB ONCE ONE Stop: 09/12/19 08:48 Ondansetron HCl (Zofran Injection) 4 mg IVPUSH Q6H PRN PRN Reason: NAUSEA AND/OR VOMITING Last Admin: 09/10/19 15:55 Dose: 4 mg Ondansetron HCl (Zofran Injection) 4 mg IVPUSH Q4H PRN PRN Reason: NAUSEA AND/OR VOMITING Potassium Phos/Sodium Phos (Phos-Nak Packet -) 2 packet PO ONCE ONE Stop: 09/12/19 08:48 Promethazine HCl (Phenergan Injection -) 12.5 mg IVPB Q6H PRN PRN Reason: NAUSEA AND/OR VOMITING ASSESSMENT/PLAN: 59 yo F with hx of multiple (~30) back and spine surgeries, complex global myofascial pain syndrome, recurrent spinal stenosis, multiple sclerosis, mechanical thoracolumbar instability, POD #0 s/p 1) inspection fusion mass (c- spine), 2) T1-3 laminectomies, 3) C7-T4 in situ fusion, 4) Inspection fusion mass (thoracolumbar spine), 5) posterior instrumentation T8-S1, 6) posteroir arthrodesis T8-S1, 7) bone allograft, 8) bone autograft, 9) complex wound closure (60cm). Ortho -pt/ot/rehab -Dr. Marina recs: elevated HOB, mobilization, OOB to chair as tolerated -pt will require rehab on discharge , [place]monitor drain output Neuro -pain mgmt consult (Dr. Khalil) -neuro recs (Dr. Bhakta) appreciated. pt still denies MS mgmt and MRI - increased MANUFACTURING MACHINE OPERATOR to 0.5mg lockout q8 min, no basal rate. -c/w ativan IV for muscle spasms. -c/w Ofirmev 1000mg q6hr. no NSAIDs for pain control Resp -incentive spirometry -NC O2 w/ etCO2 monitoring ID -s/p cefazolin x3 doses post-op F/E/N -trend lytes, replete PRN -Na and fat controlled diet -c/w guzman DVTppx: SCDs --consider Heparin/ chemical ppx Dispo: continue ICU care Visit type - Emergency Visit Emergency Visit: No - New Patient This patient is new to me today: No - Critical Care Critical Care patient: Yes Total Critical Care Time (in minutes): 36 Critical Care Statement: The care of this patient involved high complexity decision making to prevent further life threatening deterioration of the patient 's condition and/or to evaluate & treat vital organ system(s) failure or risk of failure. ATTENDING PHYSICIAN STATEMENT I saw and evaluated the patient. I reviewed the resident's note and discussed the case with the resident. I agree with the resident's findings and plan as documented. SUBJECTIVE: OBJECTIVE: ASSESSMENT AND PLAN:
[2019-09-12] MEDS ORDERED: NAPH,MB-DB/K PH,MBDB POWDER PACKET PO ONE (09:00)
[2019-09-12] MEDS ORDERED: MAGNESIUM SULF 50% (8.12 MEQ/2 ML-1 GM VIAL) IVPB ONE (09:00)
--- NOTE | 2019-09-12 09:13 | PN ---
Progress Note (short form) - Note Progress Note: P92,BP 94/56 and Spo2 92 on o2 2L.Patient stable and looking comfortable but c/ o pain score of 7-8/10 on Dilaudaia lawn care specialist,Offirmev and Neurontin.Dr Marina told the patient she acn have Toradl so wll add it for 3 doses.Will f/u.
[2019-09-12] MEDS: KETOROLAC TROMETHAMINE 30 MG/1 ML VIAL IVPUSH SCH ×2 (10:29→17:56)
--- NOTE | 2019-09-12 11:42 | PN ---
Teaching Attending Note Name of Resident: Justine Willis ATTENDING PHYSICIAN STATEMENT I saw and evaluated the patient. I reviewed the resident's note and discussed the case with the resident. I agree with the resident's findings and plan as documented. SUBJECTIVE: Pt seen and examined in the ICU. Still with significant pain and nausea. poor appetite. OBJECTIVE: Vital Signs Period Temp Pulse Resp BP Sys/Gallagher Pulse Ox Last 24 Hr 98 F-99 F 63-109 11-20 91-155/54-83 90-103 Intake & Output 09/09/19 09/10/19 09/11/19 09/12/19 23:59 23:59 23:59 23:59 Intake Total 4050 3058 3990 1855 Output Total 2300 1970 7250 2400 Balance 1750 1088 -3260 -545 Weight 81.647 kg 90.038 kg Gen: NAD at rest Heart: RRR Lung: decreased breath sounds at the bases Abd: soft, nontender Ext: no edema CBC, BMP 09/12/19 05:45 09/12/19 05:45 Active Medications Acetaminophen (Ofirmev Injection -) 1,000 mg IVPB Q8H [facility] Stop: 09/15/19 16:59 Last Admin: 09/12/19 09:04 Dose: 1,000 mg Amitriptyline HCl (Elavil -) 100 mg PO HS [facility] Last Admin: 09/12/19 00:42 Dose: 100 mg Dexamethasone Sodium Phosphate (Decadron Injection -) 4 mg IVPUSH ONCE PRN PRN Reason: NAUSEA AND/OR VOMITING Diazepam (Valium Injection -) 10 mg IVPUSH Q8H PRN PRN Reason: MUSCLE SPASMS Diphenhydramine HCl (Benadryl Injection -) 12.5 mg IVPUSH ONCE PRN PRN Reason: FOR ITCHING Last Admin: 09/11/19 21:05 Dose: 12.5 mg Gabapentin (Neurontin -) 300 mg PO TID [facility] Last Admin: 09/12/19 06:48 Dose: Not Given Hydromorphone HCl (Hydromorphone 10 Mg/50 Ml-Ns) 10 mg OSTRICH FARMER OSTRICH FARMER [facility]; Protocol Stop: 09/12/19 18:44 Last Admin: 09/12/19 01:07 Dose: 10 mg Lactated Ringer's (Lactated Ringers Solution) 1,000 mls @ 125 mls/hr IV ASDIR ARNIE Last Admin: 09/11/19 16:59 Dose: 125 mls/hr Ketorolac Tromethamine (Toradol Injection -) 30 mg IVPUSH Q8H-IV ARNIE Stop: 09/17/19 09:59 Last Admin: 09/12/19 10:29 Dose: 30 mg Lorazepam (Ativan Injection -) 2 mg IVPUSH Q6H PRN PRN Reason: MUSCLE SPASMS Last Admin: 09/12/19 10:29 Dose: 2 mg Ondansetron HCl (Zofran Injection) 4 mg IVPUSH Q6H PRN PRN Reason: NAUSEA AND/OR VOMITING Last Admin: 09/10/19 15:55 Dose: 4 mg Ondansetron HCl (Zofran Injection) 4 mg IVPUSH Q4H PRN PRN Reason: NAUSEA AND/OR VOMITING Promethazine HCl (Phenergan Injection -) 12.5 mg IVPB Q6H PRN PRN Reason: NAUSEA AND/OR VOMITING ASSESSMENT AND PLAN: Progressive Kyphoscoliosis s/p T1-T3 Laminectomies/C7-T4 Fusion/T8-S1 Posterior Instrumentation/Arthrodesis - pain control - incentive spirometry - IVF - PO as tolerated - antiemetics - monitor drain output - activity/diet/DVT prophylaxis per surgery
--- NOTE | 2019-09-12 17:01 | PN ---
Teaching Attending Note Name of Resident: Lisandra Aceves ATTENDING PHYSICIAN STATEMENT I saw and evaluated the patient. I reviewed the resident's note and discussed the case with the resident. I agree with the resident's findings and plan as documented with exceptions below. SUBJECTIVE: Patient seen and examined. still in pain, passing gas, no BM yet. OBJECTIVE: Vital Signs Period Temp Pulse Resp BP Sys/Gallagher Pulse Ox Last 24 Hr 98 F-98.6 F 63-107 11-20 91-129/54-73 90-103 Intake & Output 09/09/19 09/10/19 09/11/19 09/12/19 23:59 23:59 23:59 23:59 Intake Total 4050 3058 3990 3885 Output Total 2300 1970 7250 3450 Balance 1750 1088 -3260 435 Weight 180 lb 198 lb 8 oz General: lying in bed, mild distress from pain HEENT: Facial symmetry Neck: soft, supple Chest: no rales or wheezing anteriorly, but limited exam Abdomen:soft, obese, NT Extremities: no edema Drain with serosanguinous fluid ASSESSMENT AND PLAN: 59 year old woman with PMH of Multiple Sclerosis, Morphine allergy, Lumbar spine stenosis and Multiple back and spine surgeries, Complex global myofascial pain syndrome, Recurrent spinal stenosis, Multiple sclerosis, Mechanical thoracolumbar instability s/p spinal surgery -POD #1 1. Inspection fusion mass (cervical spine). 2. T1, T2, T3 laminectomies. 3. C7-T4 in situ fusion. 4. Inspection fusion mass ( thoracolumbar spine). 5. Posterior instrumentation T8-S1. 6. Posterior arthrodesis T8-S1. 7. Bone allograft. 8. Bone autograft. 9. Complex wound closure -Paraparesis -Hypophosphatemia -Hypomagnesemia -Multiple Sclerosis -Lumbar spinal stenosis -Complex global myofascial pain syndrome -Recurrent spinal stenosis -Mehcnaical thoracolumbar instability s/p spinal surgery Plan: Dilaudid HEAD OF DATA, Neurology input noted. PO, drain management, DVTPPx, toradol per spine surgery replete lytes dispo ICU level of care currently total critical care time 32 min
[2019-09-12] MEDS: LACTATED RINGERS SOLUTION 1,000 ML IV SCH (17:43)
--- NOTE | 2019-09-12 18:19 | PN ---
Physical Exam: SUBJECTIVE: Patient seen and examined. She reports continued back and bilateral leg pain that is sharp and burning. She denies chest pain, shortness of breath, fever, chills, nausea, and vomiting. OBJECTIVE: Vital Signs Period Temp Pulse Resp BP Sys/Gallagher Pulse Ox Last 24 Hr 98 F-98.6 F 63-107 11-20 91-129/54-73 90-103 GENERAL: The patient is awake, alert, and fully oriented, in mild distress HEAD: Normal with no signs of trauma. EYES: PERRL, extraocular movements intact ENT: Ears normal, nares patent, moist mucous membranes. NECK: Trachea midline, full range of motion, supple. LUNGS: Breath sounds equal, clear to auscultation bilaterally, no accessory muscle use. HEART: Regular rate and rhythm, no murmur ABDOMEN: Soft, nontender, nondistended, normoactive bowel sounds BACK: Hemovac draining serosangineous fluid EXTREMITIES: Warm, well-perfused, no edema. Can move toes. Sensation intact. NEUROLOGICAL: Normal speech SKIN: Warm, dry, normal turgor hemovac 150cc urine 7100cc Laboratory Results - last 24 hr 09/12/19 09/12/19 05:45 05:45 WBC 9.9 RBC 3.43 L Hgb 10.5 L Hct 31.2 L MCV 91.1 MCH 30.6 MCHC 33.6 RDW 14.9 Plt Count 180 MPV 8.9 Absolute Neuts (auto) 7.2 Neutrophils % 73.2 Lymphocytes % 17.5 D Monocytes % 7.0 Eosinophils % 2.1 Basophils % 0.2 Nucleated RBC % 0 Sodium 141 Potassium 3.9 Chloride 105 Carbon Dioxide 34 H Anion Gap 2 L BUN 7.8 Creatinine 0.3 L Est GFR (CKD-EPI)AfAm 147.31 Est GFR (CKD-EPI)NonAf 127.10 Random Glucose 79 Calcium 8.1 L Phosphorus 2.3 L Magnesium 1.7 L Total Bilirubin 0.6 AST 23 ALT 12 L Alkaline Phosphatase 76 Total Protein 5.1 L Albumin 2.3 L Active Medications Generic Name Dose Route Start Last Admin Trade Name Freq PRN Reason Stop Dose Admin Acetaminophen 1,000 mg 09/09/19 17:00 09/12/19 17:42 Ofirmev Injection - IVPB 09/15/19 16:59 1,000 mg Q8H ARNIE Administration Amitriptyline HCl 100 mg 09/10/19 16:26 09/12/19 00:42 Elavil - PO 100 mg HS ARNIE Administration Dexamethasone Sodium Phosphate 4 mg 09/11/19 18:40 Decadron Injection - IVPUSH ONCE PRN NAUSEA AND/OR VOMITING Diazepam 10 mg 09/09/19 16:47 Valium Injection - IVPUSH Q8H PRN MUSCLE SPASMS Diphenhydramine HCl 12.5 mg 09/11/19 18:43 09/11/19 21:05 Benadryl Injection - IVPUSH 12.5 mg ONCE PRN Administration FOR ITCHING Gabapentin 300 mg 09/11/19 14:00 09/12/19 17:57 Neurontin - PO Not Given TID ARNIE Hydromorphone HCl 10 mg 09/11/19 18:45 09/12/19 01:07 Hydromorphone 10 Mg/50 Ml-Ns PARAFFIN PLANT SWEATER OPERATOR 09/12/19 18:44 10 mg PARAFFIN PLANT SWEATER OPERATOR ARNIE Administration Protocol Lactated Ringer's 1,000 mls @ 125 mls/hr 09/09/19 17:00 09/12/19 17:43 Lactated Ringers Solution IV 125 mls/hr ASDIR ARNIE Administration Ketorolac Tromethamine 30 mg 09/12/19 10:00 09/12/19 17:56 Toradol Injection - IVPUSH 09/17/19 09:59 30 mg Q8H-IV ARNIE Administration Lorazepam 2 mg 09/10/19 10:27 09/12/19 18:15 Ativan Injection - IVPUSH 2 mg Q6H PRN Administration MUSCLE SPASMS Ondansetron HCl 4 mg 09/09/19 16:47 09/10/19 15:55 Zofran Injection IVPUSH 4 mg Q6H PRN Administration NAUSEA AND/OR VOMITING Ondansetron HCl 4 mg 09/11/19 18:40 Zofran Injection IVPUSH Q4H PRN NAUSEA AND/OR VOMITING Promethazine HCl 12.5 mg 09/11/19 18:43 Phenergan Injection - IVPB Q6H PRN NAUSEA AND/OR VOMITING ASSESSMENT/PLAN: Nava Tafoya is a 59y/o female with multiple (~30) back and spine surgeries, complex global myofascial pain syndrome, recurrent spinal stenosis, multiple sclerosis, and mechanical thoracolumbar instability who presents for spinal surgery. This includes inspection fusion mass (c-spine), T1-3 laminectomies, C7- T4 in situ fusion, inspection fusion mass (thoracolumbar spine), posterior instrumentation T8-S1, posterior arthrodesis T8-S1, bone allograft, bone autograft, and complex wound closure (60cm). She is POD 3. #complex spinal pain 2/2 mechanical instability and myofascial decompensation s/ p multi-level spinal intervention, POD 3 -scheduled IV tylenol -dilaudid PARAFFIN PLANT SWEATER OPERATOR pump -gabapentin 300mg TID -Ativan 2mg Q6H PRN muscle spasms -zofran PRN -no NSAIDs -mechanical SCDs -PT -no bending, lifting (>5 lbs), or twisting for 9-12 months, f/u 7-10 days after rehab d/c FEN LR 125mL/hr monitor labs full liquid diet dispo: ICU SNF Visit type - Emergency Visit Emergency Visit: Yes ED Registration Date: 09/09/19 Care time: The patient presented to the Emergency Department on the above date and was hospitalized for further evaluation of their emergent condition. - New Patient This patient is new to me today: No - Critical Care Critical Care patient: Yes Total Critical Care Time (in minutes): 35 Critical Care Statement: The care of this patient involved high complexity decision making to prevent further life threatening deterioration of the patient 's condition and/or to evaluate & treat vital organ system(s) failure or risk of failure. - Discharge Referral Referred to [facility] Med [facility] No ATTENDING PHYSICIAN STATEMENT I saw and evaluated the patient. I reviewed the resident's note and discussed the case with the resident. I agree with the resident's findings and plan as documented. SUBJECTIVE: OBJECTIVE: ASSESSMENT AND PLAN:
[2019-09-12] MEDS ORDERED: PT OWN MED DRAWER 7, Y5N ONE ×2 (21:22→21:54)
[2019-09-13] MEDS: KETOROLAC TROMETHAMINE 30 MG/1 ML VIAL IVPUSH SCH ×3 (01:27→17:04)
[2019-09-13] MEDS: ACETAMINOPHEN 1000 MG/100 ML VIAL (NON FORMULARY) IVPB SCH ×3 (01:30→16:01)
[2019-09-13 05:55] LABS: HEMATOCRIT 27.6 % (32.4-45.2); HEMOGLOBIN 9.3 GM/dL (10.7-15.3); MCH 30.8 pg (25.7-33.7); MCHC 33.8 g/dl (32.0-36.0); MEAN CELL VOLUME 91.2 fl (80-96); MEAN PLT VOLUME 8.7 fl (7.5-11.1); PLATELET COUNT 199 K/MM3 (134-434); RBC 3.03 M/mm3 (3.60-5.2); RDW 14.7 % (11.6-15.6); WHITE BLOOD COUNT 8.3 K/mm3 (4.0-10.0)
[2019-09-13 06:17] LABS: BLOOD UREA NITROGEN 10.6 mg/dL (7-18); CALCIUM 7.9 mg/dL (8.5-10.1); CREATININE 0.4 mg/dL (0.55-1.3); MAGNESIUM 1.7 mg/dL (1.8-2.4); PHOSPHOROUS 3.2 mg/dL (2.5-4.9); POTASSIUM 3.9 mmol/L (3.5-5.1)
[2019-09-13] MEDS: GABAPENTIN 300 MG CAPSULE (FP) PO SCH ×3 (06:30→22:55)
[2019-09-13] MEDS ORDERED: MAGNESIUM OXIDE 400 MG TABLET (FP) PO ONE (07:03)
[2019-09-13] MEDS ORDERED: MAGNESIUM SULF 50% (8.12 MEQ/2 ML-1 GM VIAL) IVPB ONE (07:15)
[2019-09-13] MEDS: LORazepam 2 MG/ML SDV VIAL IVPUSH PRN (07:27)
--- NOTE | 2019-09-13 08:52 | PN ---
Physical Exam: SUBJECTIVE: Patient seen and examined at bedside. pt states that her pain is better controlled today and that her strength is improving. she states that she is having bad R LE muscle spasms and that she is willing to try the neurontin today OBJECTIVE: Vital Signs Period Temp Pulse Resp BP Sys/Gallagher Pulse Ox Last 24 Hr 98.2 F-98.6 F 80-104 11-18 85-124/42-73 60-95 GENERAL: The patient is awake, alert, and fully oriented, in no acute distress. LUNGS: Breath sounds equal, clear to auscultation bilaterally, no accessory muscle use. HEART: Regular rate and rhythm, S1, S2 without murmur, rub or gallop. ABDOMEN: Soft, nontender, nondistended, normoactive bowel sounds, no guarding EXTREMITIES: 2+ pulses, warm, well-perfused, no edema. SKIN: Warm, dry, normal turgor, no rashes or lesions noted CBC, BMP 09/13/19 05:35 09/13/19 05:35 Current Medications Acetaminophen (Ofirmev Injection -) 1,000 mg IVPB Q8H REPLACED BY [facility] Stop: 09/15/19 16:59 Last Admin: 09/13/19 01:30 Dose: 1,000 mg Amitriptyline HCl (Elavil -) 100 mg PO HS REPLACED BY [facility] Last Admin: 09/12/19 21:49 Dose: 100 mg Dexamethasone Sodium Phosphate (Decadron Injection -) 4 mg IVPUSH ONCE PRN PRN Reason: NAUSEA AND/OR VOMITING Diazepam (Valium Injection -) 10 mg IVPUSH Q8H PRN PRN Reason: MUSCLE SPASMS Diphenhydramine HCl (Benadryl Injection -) 12.5 mg IVPUSH ONCE PRN PRN Reason: FOR ITCHING Last Admin: 09/11/19 21:05 Dose: 12.5 mg Gabapentin (Neurontin -) 300 mg PO TID REPLACED BY [facility] Last Admin: 09/13/19 06:30 Dose: Not Given Hydromorphone HCl (Hydromorphone 10 Mg/50 Ml-Ns) 10 mg SEX WORKER OR ESCORT SEX WORKER OR ESCORT REPLACED BY [facility]; Protocol Stop: 09/19/19 19:57 Last Admin: 09/12/19 23:00 Dose: 10 mg Lactated Ringer's (Lactated Ringers Solution) 1,000 mls @ 125 mls/hr IV ASDIR REPLACED BY [facility] Last Admin: 09/12/19 17:43 Dose: 125 mls/hr Ketorolac Tromethamine (Toradol Injection -) 30 mg IVPUSH Q8H-IV ARNIE Stop: 09/17/19 09:59 Last Admin: 09/13/19 01:27 Dose: 30 mg Lorazepam (Ativan Injection -) 2 mg IVPUSH Q6H PRN PRN Reason: MUSCLE SPASMS Last Admin: 09/13/19 07:27 Dose: 2 mg Ondansetron HCl (Zofran Injection) 4 mg IVPUSH Q6H PRN PRN Reason: NAUSEA AND/OR VOMITING Last Admin: 09/10/19 15:55 Dose: 4 mg Ondansetron HCl (Zofran Injection) 4 mg IVPUSH Q4H PRN PRN Reason: NAUSEA AND/OR VOMITING Promethazine HCl (Phenergan Injection -) 12.5 mg IVPB Q6H PRN PRN Reason: NAUSEA AND/OR VOMITING ASSESSMENT/PLAN: 59 yo F with hx of multiple (~30) back and spine surgeries, complex global myofascial pain syndrome, recurrent spinal stenosis, multiple sclerosis, mechanical thoracolumbar instability, POD #0 s/p 1) inspection fusion mass (c- spine), 2) T1-3 laminectomies, 3) C7-T4 in situ fusion, 4) Inspection fusion mass (thoracolumbar spine), 5) posterior instrumentation T8-S1, 6) posteroir arthrodesis T8-S1, 7) bone allograft, 8) bone autograft, 9) complex wound closure (60cm). Ortho: multiple spine surgeries -pt/ot/rehab -Dr. Marina recs: elevated HOB, mobilization, OOB to chair as tolerated -pt will require rehab on discharge , [place]monitor drain output Neuro: Multiple Sclerosis -pain mgmt consult (Dr. Khalil) -neuro recs (Dr. Bhakta) appreciated. pt still denies MS mgmt and MRI - increased SEX WORKER OR ESCORT to 0.5mg lockout q8 min, no basal rate. -c/w ativan IV for muscle spasms. -c/w Ofirmev 1000mg q6hr. no NSAIDs for pain control -will increase neurontin to 600 mg TID for muscle spasms Resp -incentive spirometry -NC O2 w/ etCO2 monitoring ID -s/p cefazolin x3 doses post-op F/E/N -trend lytes, replete PRN -Na and fat controlled diet DVTppx: SCDs --consider Heparin/ chemical ppx Dispo: continue ICU care Visit type - Emergency Visit Emergency Visit: No - New Patient This patient is new to me today: No - Critical Care Critical Care patient: Yes Total Critical Care Time (in minutes): 36 Critical Care Statement: The care of this patient involved high complexity decision making to prevent further life threatening deterioration of the patient 's condition and/or to evaluate & treat vital organ system(s) failure or risk of failure. ATTENDING PHYSICIAN STATEMENT I saw and evaluated the patient. I reviewed the resident's note and discussed the case with the resident. I agree with the resident's findings and plan as documented. SUBJECTIVE: OBJECTIVE: ASSESSMENT AND PLAN:
--- NOTE | 2019-09-13 09:05 | PN ---
Progress Note (short form) - Note Progress Note: Neurology HISTORY OF PRESENT ILLNESS: 59 y/o female with hx of multiple (~30) back and spine surgeries, complex global myofascial pain syndrome, recurrent spinal stenosis, multiple sclerosis, mechanical thoracolumbar instability, admitted for surgical intervention and per notes completed: 1) inspection fusion mass (c-spine), 2) T1-3 laminectomies, 3) C7-T4 in situ fusion, 4) Inspection fusion mass (thoracolumbar spine), 5) posterior instrumentation T8-S1, 6) posteroir arthrodesis T8-S1, 7) bone allograft, 8) bone autograft, 9) complex wound closure (60cm). 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 Complaints of pain and pain mgmt has been consulted. Extensive conversation regarding her MS history which dates back to >10 years and reports previously on BetaSeron but felt no difference. States last MRI brain was 1 year ago, offered repeat which patient would like to defer and reports prior imaging stable and states she will not be able to stay flat and tolerate procedure. She does not want to start on MS meds and would like to focus on spinal mgmt at this time. As outpatient, would advise MRI brain with and without contrast to start with. Discussed the same with the patient this morning and again she confirmed desire did not have any further evaluation of her multiple sclerosis. Reviewed note from Ortho, consider ruff slide bilterally for feet. Patient aware of this. Discussed ambulation status this AM and patient reports getting bedside PT but not able to bear weight. Encouraged continued participation with therapist and patient in agreement. Reports continued pain and limited movement in extremities. Discussed with ICU nurse. Active Medications Acetaminophen (Ofirmev Injection -) 1,000 mg IVPB Q8H ARNIE Stop: 09/15/19 16:59 Last Admin: 09/13/19 01:30 Dose: 1,000 mg Amitriptyline HCl (Elavil -) 100 mg PO HS ARNIE Last Admin: 09/12/19 21:49 Dose: 100 mg Dexamethasone Sodium Phosphate (Decadron Injection -) 4 mg IVPUSH ONCE PRN PRN Reason: NAUSEA AND/OR VOMITING Diazepam (Valium Injection -) 10 mg IVPUSH Q8H PRN PRN Reason: MUSCLE SPASMS Diphenhydramine HCl (Benadryl Injection -) 12.5 mg IVPUSH ONCE PRN PRN Reason: FOR ITCHING Last Admin: 09/11/19 21:05 Dose: 12.5 mg Gabapentin (Neurontin -) 300 mg PO TID ARNIE Last Admin: 09/13/19 06:30 Dose: Not Given Hydromorphone HCl (Hydromorphone 10 Mg/50 Ml-Ns) 10 mg VICE PRESIDENT SUPPLY CHAIN VICE PRESIDENT SUPPLY CHAIN ARNIE; Protocol Stop: 09/19/19 19:57 Last Admin: 09/12/19 23:00 Dose: 10 mg Lactated Ringer's (Lactated Ringers Solution) 1,000 mls @ 125 mls/hr IV ASDIR ARNIE Last Admin: 09/12/19 17:43 Dose: 125 mls/hr Ketorolac Tromethamine (Toradol Injection -) 30 mg IVPUSH Q8H-IV ARNIE Stop: 09/17/19 09:59 Last Admin: 09/13/19 01:27 Dose: 30 mg Lorazepam (Ativan Injection -) 2 mg IVPUSH Q6H PRN PRN Reason: MUSCLE SPASMS Last Admin: 09/13/19 07:27 Dose: 2 mg Ondansetron HCl (Zofran Injection) 4 mg IVPUSH Q6H PRN PRN Reason: NAUSEA AND/OR VOMITING Last Admin: 09/10/19 15:55 Dose: 4 mg Ondansetron HCl (Zofran Injection) 4 mg IVPUSH Q4H PRN PRN Reason: NAUSEA AND/OR VOMITING Promethazine HCl (Phenergan Injection -) 12.5 mg IVPB Q6H PRN PRN Reason: NAUSEA AND/OR VOMITING PHYSICAL EXAMINATION Vital Signs Period Temp Pulse Resp BP Sys/Gallagher Pulse Ox Last 24 Hr 98.2 F-98.6 F 80-104 11-18 85-124/42-73 60-95 GENERAL: Awake, alert, and fully oriented, in no acute distress. HEAD: Normal with no signs of trauma. EYES: Pupils equal, round and reactive to light, extraocular movements intact, sclera anicteric, conjunctiva clear. No lid lag. EARS, NOSE, THROAT: Ears normal, nares patent, oropharynx clear without exudates. Moist mucous membranes. NECK: Normal range of motion, supple without lymphadenopathy, JVD, or masses. LUNGS: Breath sounds equal, clear to auscultation bilaterally. No wheezes, and no crackles. No accessory muscle use. HEART: Regular rate and rhythm, normal S1 and S2 without murmur, rub or gallop. ABDOMEN: Soft, nontender, not distended, normoactive bowel sounds, no guarding, no rebound, no masses. No hepatomegaly or splenomegaly. MUSCULOSKELETAL: Normal range of motion at all joints. No bony deformities or tenderness. No CVA tenderness. UPPER EXTREMITIES: 2+ pulses, warm, well-perfused. No cyanosis. No clubbing. Cap refill <2 seconds. No peripheral edema. LOWER EXTREMITIES: 2+ pulses, warm, well-perfused. No calf tenderness. No peripheral edema. NEUROLOGICAL: Cranial nerves II-XII intact. Normal speech. Normal gait. PSYCHIATRIC: Cooperative. Good eye contact. Appropriate mood and affect. SKIN: Warm, dry, normal turgor, no rashes or lesions noted. CBCD WBC 8.3 K/mm3 (4.0-10.0) 09/13/19 05:35 RBC 3.03 M/mm3 (3.60-5.2) L 09/13/19 05:35 Hgb 9.3 GM/dL (10.7-15.3) L 09/13/19 05:35 Hct 27.6 % (32.4-45.2) L 09/13/19 05:35 MCV 91.2 fl (80-96) 09/13/19 05:35 MCHC 33.8 g/dl (32.0-36.0) 09/13/19 05:35 RDW 14.7 % (11.6-15.6) 09/13/19 05:35 Plt Count 199 K/MM3 (134-434) 09/13/19 05:35 MPV 8.7 fl (7.5-11.1) 09/13/19 05:35 CMP Sodium 142 mmol/L (136-145) 09/13/19 05:35 Potassium 3.9 mmol/L (3.5-5.1) 09/13/19 05:35 Chloride 104 mmol/L (98-107) 09/13/19 05:35 Carbon Dioxide 33 mmol/L (21-32) H 09/13/19 05:35 Anion Gap 4 MMOL/L (8-16) L 09/13/19 05:35 BUN 10.6 mg/dL (7-18) 09/13/19 05:35 Creatinine 0.4 mg/dL (0.55-1.3) L 09/13/19 05:35 Random Glucose 99 mg/dL (74-106) 09/13/19 05:35 Calcium 7.9 mg/dL (8.5-10.1) L 09/13/19 05:35 Total Bilirubin 0.6 mg/dL (0.2-1) 09/12/19 05:45 AST 23 U/L (15-37) 09/12/19 05:45 ALT 12 U/L (13-61) L 09/12/19 05:45 Alkaline Phosphatase 76 U/L (45-117) 09/12/19 05:45 Total Protein 5.1 g/dl (6.4-8.2) L 09/12/19 05:45 Albumin 2.3 g/dl (3.4-5.0) L 09/12/19 05:45 ASSESSMENT/PLAN: 59 y/o female with hx of multiple (~30) back and spine surgeries, complex global myofascial pain syndrome, recurrent spinal stenosis, multiple sclerosis, mechanical thoracolumbar instability, POD #0 s/p 1) inspection fusion mass (c- spine), 2) T1-3 laminectomies, 3) C7-T4 in situ fusion, 4) Inspection fusion mass (thoracolumbar spine), 5) posterior instrumentation T8-S1, 6) posteroir arthrodesis T8-S1, 7) bone allograft, 8) bone autograft, 9) complex wound closure (60cm). 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 Complaints of pain and pain mgmt has been consulted. Extensive conversation regarding her MS history which dates back to > 10 years and reports previously on BetaSeron but felt no difference. States last MRI brain was 1 year ago, offered repeat which patient would like to defer and reports prior imaging stable and states she will not be able to stay flat and tolerate procedure. She does not want to start on MS meds and would like to focus on spinal mgmt at this time. As outpatient, would advise MRI brain with and without contrast to start with. Follow up pain mgmt, physical therapy as tolerated. Will need rehab placement, per notes being cconsidered for [facility] but the patient reported she would prefer facility near her home. Ortho follow up note reviewed, being consider for Lauren slide per note. Discussed ambulation status this AM and patient reports getting bedside PT but not able to bear weight. Encouraged continued participation with therapist and patient in agreement. Reports continued pain and limited movement in extremities. Discussed with ICU nurse. Continued medical optimization recommended. Critical care time 35 mins.
[2019-09-13 09:31] LABS: PH,URINE 6.5 (5.0-8.0); URINE APPEARANCE CLEAR; URINE BILIRUBIN NEGATIVE (NEGATIVE); URINE COLOR YELLOW; URINE GLUCOSE (UA) NEGATIVE (NEGATIVE); URINE KETONE NEGATIVE (NEGATIVE); URINE LEUK ESTERASE NEGATIVE (NEGATIVE); URINE NITRITE NEGATIVE (NEGATIVE); URINE PROTEIN NEGATIVE (NEGATIVE)
[2019-09-13] MEDS: HYDROmorphone *PCA* 10MG/50ML DISP.SYRIN PCA SCH ×3 (10:02→19:56)
--- NOTE | 2019-09-13 11:08 | PN ---
Progress Note (short form) - Note Progress Note: Anesthesia/pain Pt seen and examined S:Alert and awake comfortable O: Vital Signs Temperature 98.2 F 09/13/19 05:00 Pulse Rate 90 09/13/19 09:00 Respiratory Rate 13 09/13/19 09:00 Blood Pressure 107/76 09/13/19 09:00 O2 Sat by Pulse Oximetry (%) 95 09/13/19 09:00 CBC, BMP 09/13/19 05:35 09/13/19 05:35 A/P: s/p T1-S1 fusion doing well post op Continue Current care Continue [employer] [place] CLERK Hari Groves M.D.
--- NOTE | 2019-09-13 12:07 | PN ---
Teaching Attending Note Name of Resident: Justine Willis ATTENDING PHYSICIAN STATEMENT I saw and evaluated the patient. I reviewed the resident's note and discussed the case with the resident. I agree with the resident's findings and plan as documented. SUBJECTIVE: Patient seen and examined in the ICU. Still with significant pain and nausea. poor appetite. Unable to move left leg (has been like that this whole week apparently). No CP or SOB. OBJECTIVE: Intake & Output 09/10/19 09/11/19 09/12/19 09/13/19 23:59 23:59 23:59 23:59 Intake Total 3058 3990 4505 1290 Output Total 1970 7250 3750 1150 Balance 1088 -3260 755 140 Weight 180 lb 198 lb 8 oz Last Vital Signs Temp Pulse Resp BP Pulse Ox 98.2 F 90 13 107/76 95 09/13/19 05:00 09/13/19 09:00 09/13/19 09:00 09/13/19 09:00 09/13/19 09:00 Active Medications Acetaminophen (Ofirmev Injection -) 1,000 mg IVPB Q8H ARNIE Stop: 09/15/19 16:59 Last Admin: 09/13/19 09:17 Dose: 1,000 mg Amitriptyline HCl (Elavil -) 100 mg PO HS ARNIE Last Admin: 09/12/19 21:49 Dose: 100 mg Dexamethasone Sodium Phosphate (Decadron Injection -) 4 mg IVPUSH ONCE PRN PRN Reason: NAUSEA AND/OR VOMITING Diphenhydramine HCl (Benadryl Injection -) 12.5 mg IVPUSH ONCE PRN PRN Reason: FOR ITCHING Last Admin: 09/11/19 21:05 Dose: 12.5 mg Gabapentin (Neurontin -) 600 mg PO TID ARNIE Hydromorphone HCl (Hydromorphone 10 Mg/50 Ml-Ns) 10 mg INDUSTRIAL TECHNOLOGY EDUCATION TEACHER INDUSTRIAL TECHNOLOGY EDUCATION TEACHER ARNIE; Protocol Stop: 09/19/19 19:57 Last Admin: 09/13/19 10:02 Dose: 10 mg Ketorolac Tromethamine (Toradol Injection -) 30 mg IVPUSH Q8H-IV ARNIE Stop: 09/17/19 09:59 Last Admin: 09/13/19 09:21 Dose: 30 mg Lorazepam (Ativan Injection -) 2 mg IVPUSH Q6H PRN PRN Reason: MUSCLE SPASMS Last Admin: 09/13/19 07:27 Dose: 2 mg Ondansetron HCl (Zofran Injection) 4 mg IVPUSH Q6H PRN PRN Reason: NAUSEA AND/OR VOMITING Last Admin: 09/10/19 15:55 Dose: 4 mg Ondansetron HCl (Zofran Injection) 4 mg IVPUSH Q4H PRN PRN Reason: NAUSEA AND/OR VOMITING Promethazine HCl (Phenergan Injection -) 12.5 mg IVPB Q6H PRN PRN Reason: NAUSEA AND/OR VOMITING Gen: Awake and alert, uncomfortable due to pain Heart: RRR Lung: decreased breath sounds at the bases Abd: soft, nontender Ext: no edema PSYCHIATRIC RN: Awake and alert, LLE 0/5 Laboratory Results - last 24 hr 09/09/19 09/13/19 09/13/19 06:47 05:35 05:35 WBC 8.3 RBC 3.03 L Hgb 9.3 L Hct 27.6 L MCV 91.2 MCH 30.8 MCHC 33.8 RDW 14.7 Plt Count 199 MPV 8.7 Sodium 142 Potassium 3.9 Chloride 104 Carbon Dioxide 33 H Anion Gap 4 L BUN 10.6 Creatinine 0.4 L Est GFR (CKD-EPI)AfAm 134.00 Est GFR (CKD-EPI)NonAf 115.62 Random Glucose 99 Calcium 7.9 L Phosphorus 3.2 Magnesium 1.7 L Urine Color Urine Appearance Urine pH Ur Specific [place] Urine Protein Urine Glucose (UA) Urine Ketones Urine Blood Urine Nitrite Urine Bilirubin Urine Urobilinogen Ur Leukocyte Esterase Crossmatch IS Only See Detail 09/13/19 06:00 WBC RBC Hgb Hct MCV MCH MCHC RDW Plt Count MPV Sodium Potassium Chloride Carbon Dioxide Anion Gap BUN Creatinine Est GFR (CKD-EPI)AfAm Est GFR (CKD-EPI)NonAf Random Glucose Calcium Phosphorus Magnesium Urine Color Yellow Urine Appearance Clear Urine pH 6.5 D Ur Specific [place] 1.013 Urine Protein Negative Urine Glucose (UA) Negative Urine Ketones Negative Urine Blood Negative Urine Nitrite Negative Urine Bilirubin Negative Urine Urobilinogen 1.0 Ur Leukocyte Esterase Negative Crossmatch IS Only ASSESSMENT AND PLAN: Progressive Kyphoscoliosis s/p T1-T3 Laminectomies/C7-T4 Fusion/T8-S1 Posterior Instrumentation/Arthrodesis - pain control - incentive spirometry - IVF - PO as tolerated - antiemetics - monitor drain output - activity/diet/DVT prophylaxis per surgery Dr Garza
--- NOTE | 2019-09-13 15:29 | PN ---
Teaching Attending Note Name of Resident: Lisandra Aceves ATTENDING PHYSICIAN STATEMENT I saw and evaluated the patient. I reviewed the resident's note and discussed the case with the resident. I agree with the resident's findings and plan as documented with exceptions below. SUBJECTIVE: patient seen and examined. Ongoing pain. weakness of right leg. Passing gas. No BM yet. OBJECTIVE: Vital Signs Period Temp Pulse Resp BP Sys/Gallagher Pulse Ox Last 24 Hr 98.2 F-98.6 F 80-105 11-18 85-121/42-82 60-96 Intake & Output 09/10/19 09/11/19 09/12/19 09/13/19 23:59 23:59 23:59 23:59 Intake Total 3058 3990 4505 1290 Output Total 1970 7250 3750 1150 Balance 1088 -3260 755 140 Weight 180 lb 198 lb 8 oz General: lying in bed, mild distress from pain HEENT: Facial symmetry Neck: soft, supple Chest: no rales or wheezing anteriorly, but limited exam Abdomen:soft, obese, NT Extremities: no edema Drain with serosanguinous fluid Active Medications Acetaminophen (Ofirmev Injection -) 1,000 mg IVPB Q8H ARNIE Stop: 09/15/19 16:59 Last Admin: 09/13/19 09:17 Dose: 1,000 mg Amitriptyline HCl (Elavil -) 100 mg PO HS ARNIE Last Admin: 09/12/19 21:49 Dose: 100 mg Dexamethasone Sodium Phosphate (Decadron Injection -) 4 mg IVPUSH ONCE PRN PRN Reason: NAUSEA AND/OR VOMITING Diphenhydramine HCl (Benadryl Injection -) 12.5 mg IVPUSH ONCE PRN PRN Reason: FOR ITCHING Last Admin: 09/11/19 21:05 Dose: 12.5 mg Gabapentin (Neurontin -) 600 mg PO TID ARNIE Hydromorphone HCl (Hydromorphone 10 Mg/50 Ml-Ns) 10 mg OIL BOILER OIL BOILER ARNIE; Protocol Stop: 09/19/19 19:57 Last Admin: 09/13/19 15:26 Dose: 10 mg Ketorolac Tromethamine (Toradol Injection -) 30 mg IVPUSH Q8H-IV ARNIE Stop: 09/17/19 09:59 Last Admin: 09/13/19 09:21 Dose: 30 mg Lorazepam (Ativan Injection -) 2 mg IVPUSH Q6H PRN PRN Reason: MUSCLE SPASMS Last Admin: 09/13/19 07:27 Dose: 2 mg Ondansetron HCl (Zofran Injection) 4 mg IVPUSH Q6H PRN PRN Reason: NAUSEA AND/OR VOMITING Last Admin: 09/10/19 15:55 Dose: 4 mg Ondansetron HCl (Zofran Injection) 4 mg IVPUSH Q4H PRN PRN Reason: NAUSEA AND/OR VOMITING Promethazine HCl (Phenergan Injection -) 12.5 mg IVPB Q6H PRN PRN Reason: NAUSEA AND/OR VOMITING Laboratory Results - last 24 hr 09/09/19 09/13/19 09/13/19 06:47 05:35 05:35 WBC 8.3 RBC 3.03 L Hgb 9.3 L Hct 27.6 L MCV 91.2 MCH 30.8 MCHC 33.8 RDW 14.7 Plt Count 199 MPV 8.7 Sodium 142 Potassium 3.9 Chloride 104 Carbon Dioxide 33 H Anion Gap 4 L BUN 10.6 Creatinine 0.4 L Est GFR (CKD-EPI)AfAm 134.00 Est GFR (CKD-EPI)NonAf 115.62 Random Glucose 99 Calcium 7.9 L Phosphorus 3.2 Magnesium 1.7 L Urine Color Urine Appearance Urine pH Ur Specific [place] Urine Protein Urine Glucose (UA) Urine Ketones Urine Blood Urine Nitrite Urine Bilirubin Urine Urobilinogen Ur Leukocyte Esterase Crossmatch IS Only See Detail 09/13/19 06:00 WBC RBC Hgb Hct MCV MCH MCHC RDW Plt Count MPV Sodium Potassium Chloride Carbon Dioxide Anion Gap BUN Creatinine Est GFR (CKD-EPI)AfAm Est GFR (CKD-EPI)NonAf Random Glucose Calcium Phosphorus Magnesium Urine Color Yellow Urine Appearance Clear Urine pH 6.5 D Ur Specific [place] 1.013 Urine Protein Negative Urine Glucose (UA) Negative Urine Ketones Negative Urine Blood Negative Urine Nitrite Negative Urine Bilirubin Negative Urine Urobilinogen 1.0 Ur Leukocyte Esterase Negative Crossmatch IS Only ASSESSMENT AND PLAN: 59 year old woman with PMH of Multiple Sclerosis, Morphine allergy, Lumbar spine stenosis and Multiple back and spine surgeries, Complex global myofascial pain syndrome, Recurrent spinal stenosis, Multiple sclerosis, Mechanical thoracolumbar instability s/p spinal surgery -POD #1 1. Inspection fusion mass (cervical spine). 2. T1, T2, T3 laminectomies. 3. C7-T4 in situ fusion. 4. Inspection fusion mass ( thoracolumbar spine). 5. Posterior instrumentation T8-S1. 6. Posterior arthrodesis T8-S1. 7. Bone allograft. 8. Bone autograft. 9. Complex wound closure -Paraparesis -Hypophosphatemia -Hypomagnesemia -Multiple Sclerosis -Lumbar spinal stenosis -Complex global myofascial pain syndrome -Recurrent spinal stenosis -Mehcnaical thoracolumbar instability s/p spinal surgery Plan: Dilaudid OIL BOILER, Neurology input noted. PO, drain management, DVTPPx, toradol per spine surgery replete luciana dispo ICU level of care currently total critical care time 31 min
--- NOTE | 2019-09-13 17:09 | PN ---
Physical Exam: SUBJECTIVE: Patient seen and examined. Pt reports not being able to move right leg. She reports continued pain in back and legs. OBJECTIVE: Vital Signs Period Temp Pulse Resp BP Sys/Gallagher Pulse Ox Last 24 Hr 98.2 F-98.4 F 80-105 11-18 85-122/42-82 60-96 GENERAL: The patient is awake, alert, and fully oriented, in mild distress HEAD: Normal with no signs of trauma. EYES: PERRL, extraocular movements intact ENT: Ears normal, nares patent, moist mucous membranes. NECK: Trachea midline LUNGS: Breath sounds equal, clear to auscultation bilaterally, no accessory muscle use. HEART: Regular rate and rhythm, no murmur ABDOMEN: Soft, nontender, nondistended, normoactive bowel sounds BACK: Hemovac draining serosangineous fluid EXTREMITIES: Warm, well-perfused, no edema. Moved right leg minimally. NEUROLOGICAL: Normal speech SKIN: Warm, dry, normal turgor hemovac 250cc urine guzman 3500cc Laboratory Results - last 24 hr 09/09/19 09/13/19 09/13/19 06:47 05:35 05:35 WBC 8.3 RBC 3.03 L Hgb 9.3 L Hct 27.6 L MCV 91.2 MCH 30.8 MCHC 33.8 RDW 14.7 Plt Count 199 MPV 8.7 Sodium 142 Potassium 3.9 Chloride 104 Carbon Dioxide 33 H Anion Gap 4 L BUN 10.6 Creatinine 0.4 L Est GFR (CKD-EPI)AfAm 134.00 Est GFR (CKD-EPI)NonAf 115.62 Random Glucose 99 Calcium 7.9 L Phosphorus 3.2 Magnesium 1.7 L Urine Color Urine Appearance Urine pH Ur Specific Shandon Urine Protein Urine Glucose (UA) Urine Ketones Urine Blood Urine Nitrite Urine Bilirubin Urine Urobilinogen Ur Leukocyte Esterase Crossmatch IS Only See Detail 09/13/19 06:00 WBC RBC Hgb Hct MCV MCH MCHC RDW Plt Count MPV Sodium Potassium Chloride Carbon Dioxide Anion Gap BUN Creatinine Est GFR (CKD-EPI)AfAm Est GFR (CKD-EPI)NonAf Random Glucose Calcium Phosphorus Magnesium Urine Color Yellow Urine Appearance Clear Urine pH 6.5 D Ur Specific Shandon 1.013 Urine Protein Negative Urine Glucose (UA) Negative Urine Ketones Negative Urine Blood Negative Urine Nitrite Negative Urine Bilirubin Negative Urine Urobilinogen 1.0 Ur Leukocyte Esterase Negative Crossmatch IS Only Active Medications Generic Name Dose Route Start Last Admin Trade Name Freq PRN Reason Stop Dose Admin Acetaminophen 1,000 mg 09/09/19 17:00 09/13/19 16:01 Ofirmev Injection - IVPB 09/15/19 16:59 1,000 mg Q8H ARNIE Administration Amitriptyline HCl 100 mg 09/10/19 16:26 09/12/19 21:49 Elavil - PO 100 mg HS ARNIE Administration Dexamethasone Sodium Phosphate 4 mg 09/11/19 18:40 Decadron Injection - IVPUSH ONCE PRN NAUSEA AND/OR VOMITING Diphenhydramine HCl 12.5 mg 09/11/19 18:43 09/11/19 21:05 Benadryl Injection - IVPUSH 12.5 mg ONCE PRN Administration FOR ITCHING Gabapentin 600 mg 09/13/19 14:00 09/13/19 15:59 Neurontin - PO Not Given TID ARNIE Hydromorphone HCl 10 mg 09/12/19 20:00 09/13/19 15:26 Hydromorphone 10 Mg/50 Ml-Ns CANS VACUUM TESTER 09/19/19 19:57 10 mg CANS VACUUM TESTER ARNIE Administration Protocol Ketorolac Tromethamine 30 mg 09/12/19 10:00 09/13/19 09:21 Toradol Injection - IVPUSH 09/17/19 09:59 30 mg Q8H-IV ARNIE Administration Lorazepam 2 mg 09/10/19 10:27 09/13/19 07:27 Ativan Injection - IVPUSH 2 mg Q6H PRN Administration MUSCLE SPASMS Ondansetron HCl 4 mg 09/09/19 16:47 09/10/19 15:55 Zofran Injection IVPUSH 4 mg Q6H PRN Administration NAUSEA AND/OR VOMITING Ondansetron HCl 4 mg 09/11/19 18:40 Zofran Injection IVPUSH Q4H PRN NAUSEA AND/OR VOMITING Promethazine HCl 12.5 mg 09/11/19 18:43 Phenergan Injection - IVPB Q6H PRN NAUSEA AND/OR VOMITING ASSESSMENT/PLAN: Nava Tafoya is a 59y/o female with multiple (~30) back and spine surgeries, complex global myofascial pain syndrome, recurrent spinal stenosis, multiple sclerosis, and mechanical thoracolumbar instability who presents for spinal surgery. This includes inspection fusion mass (c-spine), T1-3 laminectomies, C7- T4 in situ fusion, inspection fusion mass (thoracolumbar spine), posterior instrumentation T8-S1, posterior arthrodesis T8-S1, bone allograft, bone autograft, and complex wound closure (60cm). #complex spinal pain 2/2 mechanical instability and myofascial decompensation s/ p multi-level spinal intervention, POD 4. -scheduled IV tylenol -dilaudid CANS VACUUM TESTER pump -gabapentin 300mg TID -Ativan 2mg Q6H PRN muscle spasms -zofran PRN -toradol PRN -mechanical SCDs -PT -no bending, lifting (>5 lbs), or twisting for 9-12 months, f/u 7-10 days after rehab d/c #hypomagnesemia -replete -monitor #normocytic anemia Recent surgery. No sign of overt bleeding. Hb 9.3 today. -monitor FEN PO fluids monitor Mg, Hb fat/sodium controlled diet dispo: ICU SNF Visit type - Emergency Visit Emergency Visit: Yes ED Registration Date: 09/09/19 Care time: The patient presented to the Emergency Department on the above date and was hospitalized for further evaluation of their emergent condition. - New Patient This patient is new to me today: No - Critical Care Critical Care patient: Yes Total Critical Care Time (in minutes): 35 Critical Care Statement: The care of this patient involved high complexity decision making to prevent further life threatening deterioration of the patient 's condition and/or to evaluate & treat vital organ system(s) failure or risk of failure. - Discharge Referral Referred to [facility] No ATTENDING PHYSICIAN STATEMENT I saw and evaluated the patient. I reviewed the resident's note and discussed the case with the resident. I agree with the resident's findings and plan as documented. SUBJECTIVE: OBJECTIVE: ASSESSMENT AND PLAN:
[2019-09-13] MEDS: ONDANSETRON 4 MG/2 ML VIAL IVPUSH PRN (20:27)
[2019-09-13] MEDS: AMITRIPTYLINE HCL 25 MG TABLET (FP) PO SCH (22:55)
[2019-09-13] MEDS ORDERED: PT OWN MED DRAWER 7, Y5N ONE (23:16)
[2019-09-14] MEDS: KETOROLAC TROMETHAMINE 30 MG/1 ML VIAL IVPUSH SCH ×3 (01:29→17:18)
[2019-09-14] MEDS: ACETAMINOPHEN 1000 MG/100 ML VIAL (NON FORMULARY) IVPB SCH ×3 (01:30→16:41)
[2019-09-14] MEDS: GABAPENTIN 300 MG CAPSULE (FP) PO SCH ×3 (05:33→22:30)
[2019-09-14 06:53] LABS: BASO % 0.3 % (0-2.0); EOS % 5.8 % (0-4.5); HEMATOCRIT 29.2 % (32.4-45.2); HEMOGLOBIN 9.9 GM/dL (10.7-15.3); LYMPH % 17.8 % (8-40); MCH 30.9 pg (25.7-33.7); MEAN CELL VOLUME 90.9 fl (80-96); MEAN PLT VOLUME 8.7 fl (7.5-11.1); MONO % 7.1 % (3.8-10.2); PLATELET COUNT 262 K/MM3 (134-434); RBC 3.21 M/mm3 (3.60-5.2); RDW 14.6 % (11.6-15.6)
[2019-09-14 07:22] LABS: ALBUMIN 2.1 g/dl (3.4-5.0); BILIRUBIN,TOTAL 0.6 mg/dL (0.2-1); BLOOD UREA NITROGEN 8.1 mg/dL (7-18); CALCIUM 7.8 mg/dL (8.5-10.1); CREATININE 0.4 mg/dL (0.55-1.3); MAGNESIUM 1.6 mg/dL (1.8-2.4); PHOSPHOROUS 3.8 mg/dL (2.5-4.9); POTASSIUM 4.3 mmol/L (3.5-5.1); TOT PROT 4.9 g/dl (6.4-8.2)
--- NOTE | 2019-09-14 08:20 | PN ---
Progress Note (short form) - Note Progress Note: PULM/CCM
--- NOTE | 2019-09-14 08:33 | PN ---
Progress Note (short form) - Note Progress Note: Anesthesia Post op Pt seen and examined S:Sleeping comfortably O: Vital Signs Temperature 98.8 F 09/14/19 06:13 Pulse Rate 92 H 09/14/19 06:13 Respiratory Rate 16 09/14/19 06:13 Blood Pressure 104/64 09/14/19 06:13 O2 Sat by Pulse Oximetry (%) 88 L 09/14/19 02:00 CBC, BMP 09/14/19 05:15 09/14/19 05:15 A/P: s/p fusion Doing well post op. 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
[2019-09-14] MEDS: LORazepam 2 MG/ML SDV VIAL IVPUSH PRN (10:06)
--- NOTE | 2019-09-14 10:14 | PN ---
Progress Note, Physician History of Present Illness: Patient seen and examined at bedside in the ICU She denies nausea vomiting fever chills chest pain or SOB. Endorses incisional pain which is well controlled with MUSEUM OR ZOO DIRECTOR she endorses not being able to move her RLE offers no other complaints pending tendon release per patient on monday per Dr. Marina note patient to have ruff slide bilaterally Rooks drain putting out about 150ml of serosangenous drainage every shift per RN. - Current Medication List Current Medications: Active Medications Acetaminophen (Ofirmev Injection -) 1,000 mg IVPB Q8H ARNIE Stop: 09/15/19 16:59 Last Admin: 09/14/19 08:46 Dose: 1,000 mg Amitriptyline HCl (Elavil -) 100 mg PO HS ARNIE Last Admin: 09/13/19 22:55 Dose: 100 mg Dexamethasone Sodium Phosphate (Decadron Injection -) 4 mg IVPUSH ONCE PRN PRN Reason: NAUSEA AND/OR VOMITING Diphenhydramine HCl (Benadryl Injection -) 12.5 mg IVPUSH ONCE PRN PRN Reason: FOR ITCHING Last Admin: 09/13/19 23:17 Dose: 12.5 mg Gabapentin (Neurontin -) 600 mg PO TID ARNIE Last Admin: 09/14/19 05:33 Dose: 600 mg Hydromorphone HCl (Hydromorphone 10 Mg/50 Ml-Ns) 10 mg MUSEUM OR ZOO DIRECTOR MUSEUM OR ZOO DIRECTOR ARNIE; Protocol Stop: 09/19/19 19:57 Last Admin: 09/13/19 19:56 Dose: 10 mg Ketorolac Tromethamine (Toradol Injection -) 30 mg IVPUSH Q8H-IV ARNIE Stop: 09/17/19 09:59 Last Admin: 09/14/19 09:56 Dose: 30 mg Lorazepam (Ativan Injection -) 2 mg IVPUSH Q6H PRN PRN Reason: MUSCLE SPASMS Last Admin: 09/14/19 10:06 Dose: 2 mg Ondansetron HCl (Zofran Injection) 4 mg IVPUSH Q6H PRN PRN Reason: NAUSEA AND/OR VOMITING Last Admin: 09/13/19 20:27 Dose: 4 mg Ondansetron HCl (Zofran Injection) 4 mg IVPUSH Q4H PRN PRN Reason: NAUSEA AND/OR VOMITING Promethazine HCl (Phenergan Injection -) 12.5 mg IVPB Q6H PRN PRN Reason: NAUSEA AND/OR VOMITING - Objective Vital Signs: Vital Signs Temperature 98.8 F 09/14/19 06:13 Pulse Rate 92 H 09/14/19 06:13 Respiratory Rate 16 09/14/19 06:13 Blood Pressure 104/64 09/14/19 06:13 O2 Sat by Pulse Oximetry (%) 88 L 09/14/19 02:00 Constitutional: Yes: Well Nourished, No Distress, Calm Eyes: Yes: Conjunctiva Clear Neck: Yes: Other (Right IJ in place C/D/I) Cardiovascular: Yes: Regular Rate and Rhythm, S1, S2 Respiratory: Yes: CTA Bilaterally Musculoskeletal: Yes: Back Pain, Muscle Weakness (RLE) Edema: No Wound/Incision: Yes: Clean/Dry, Other (Dressed with Coban. was not taken down. Will defer to surgery. patient was log rolled and dressing C/D/I) Neurological: Yes: Alert, Oriented Labs: CBC, BMP 09/14/19 05:15 09/14/19 05:15 Impression/Plan Impression/Plan: 59F with h/o MS, lumbar spine stenosis and multiple other back surgeries, Complex global myofascial pain syndrome, Recurrent spinal stenosis, Multiple sclerosis, Mechanical thoracolumbar instability POD #5 s/p 1. Inspection fusion mass (cervical spine). 2. T1, T2, T3 laminectomies. 3. C7-T4 in situ fusion. 4. Inspection fusion mass (thoracolumbar spine). 5. Posterior instrumentation T8-S1. 6. Posterior arthrodesis T8-S1. 7. Bone allograft. 8. Bone autograft. 9. Complex wound closure Medicine consulted for medical management Problem List: Paraparesis Hypophosphatemia Hypomagnesemia Multiple Sclerosis Lumbar spinal stenosis Complex global myofascial pain syndrome Recurrent spinal stenosis Mechanical thoracolumbar instability s/p spinal surgery Plan: continue Dilaudid MUSEUM OR ZOO DIRECTOR for now and management per anesthesia and surgery Neurology consult noted DVT PPx Continue amytriptyline will give magnesium now pre-op tomorrow for bilateral ruff slide per ortho/spine possible patient has a psychiatric component to her symptoms-will monitor and consider psych consult. Observed patient from door outside of the room moving her RLE, although minimally, she was not able to reproduce that same movement for me on exam when prompted continue ICU care critical care time 37 mins reviewing chart and managing patient Visit type - Emergency Visit Emergency Visit: No - New Patient This patient is new to me today: Yes Date on this admission: 09/14/19 - Critical Care Critical Care patient: Yes Total Critical Care Time (in minutes): 37 Critical Care Statement: The care of this patient involved high complexity decision making to prevent further life threatening deterioration of the patient 's condition and/or to evaluate & treat vital organ system(s) failure or risk of failure.
[2019-09-14] MEDS: HYDROmorphone *PCA* 10MG/50ML DISP.SYRIN PCA SCH ×3 (10:35→22:32)
[2019-09-14] MEDS: MAGNESIUM OXIDE 400 MG TABLET (FP) PO SCH ×2 (10:49→22:30)
--- NOTE | 2019-09-14 15:43 | PN ---
Progress Note (short form) - Note Progress Note: POD#5 ICU Stable Awake Fully orientated TPS CVS Tachycardia resolved RESP AE equal bilaterally ABD Soft Distended DId pass flatus Has passed stool NEURO At baseline R arm improving MSKeletal Wound bandage Drain removed ` Feet Bilateral equinus PLAN Continue Medical and nursing mx in ICU Log roll 30 to 45 minutes Pain MX as per anaesthesia team For pain mx consult when stable PT Mobilize all joints passively Sit Will perform Aguilar slide bilateraly and place feet in AFO and Ortho shoes with steel shank and rockerbottom soles
[2019-09-14] MEDS ORDERED: DIPHENHYDRAMINE HCL 25 MG/10 ML CUP PO SCH (22:00)
[2019-09-14] MEDS ORDERED: PT OWN MED DRAWER 7, Y5N ONE ×2 (22:20→22:30)
[2019-09-14] MEDS: AMITRIPTYLINE HCL 25 MG TABLET (FP) PO SCH (22:30)
[2019-09-15] MEDS: ACETAMINOPHEN 1000 MG/100 ML VIAL (NON FORMULARY) IVPB SCH ×2 (01:45→09:55)
[2019-09-15] MEDS: KETOROLAC TROMETHAMINE 30 MG/1 ML VIAL IVPUSH SCH ×3 (02:54→17:33)
[2019-09-15] MEDS ORDERED: PT OWN MED DRAWER 7, Y5N ONE ×2 (03:50→23:02)
[2019-09-15 06:12] LABS: BASO % 0.4 % (0-2.0); EOS % 4.5 % (0-4.5); HEMATOCRIT 27.7 % (32.4-45.2); HEMOGLOBIN 9.3 GM/dL (10.7-15.3); LYMPH % 14.3 % (8-40); MCH 30.3 pg (25.7-33.7); MCHC 33.4 g/dl (32.0-36.0); MEAN CELL VOLUME 90.6 fl (80-96); MEAN PLT VOLUME 8.3 fl (7.5-11.1); MONO % 4.6 % (3.8-10.2); NEUT % 76.2 % (42.8-82.8); PLATELET COUNT 295 K/MM3 (134-434); RBC 3.06 M/mm3 (3.60-5.2); RDW 14.5 % (11.6-15.6)
[2019-09-15 06:29] LABS: BLOOD UREA NITROGEN 7.1 mg/dL (7-18); CREATININE 0.4 mg/dL (0.55-1.3); MAGNESIUM 1.9 mg/dL (1.8-2.4); POTASSIUM 4.3 mmol/L (3.5-5.1)
[2019-09-15] MEDS: GABAPENTIN 300 MG CAPSULE (FP) PO SCH ×3 (06:48→23:06)
[2019-09-15] MEDS: diphenhydrAMINE HCL 25 MG CAPSULE (FP) PO SCH ×2 (10:05→23:06)
[2019-09-15] MEDS: LORazepam 2 MG/ML SDV VIAL IVPUSH PRN ×3 (10:05→23:21)
--- NOTE | 2019-09-15 10:30 | PN ---
Progress Note (short form) - Note Progress Note: Anesthesia, LABORATORY COORDINATOR round, POD#6,S/P T1-S1 laminactomies and fusions. Pat with history of multiple back surgeries with chronic back pain on high dose hydrmorphone at home and post op. Also on adjuvant therapy with NSAID and Neurontin and BDZ.. On 0.5 mg hydromorphone q6 min. Pain6-7/10. VSS. limited PT. Recommending to consult chronic pain management for continued care.
--- NOTE | 2019-09-15 10:50 | PN ---
Physical Exam: SUBJECTIVE: Patient seen and examined. She reports back and leg pain 7/10, which she reports is the best it has been controlled "in years." She also reports leg cramping on right side. She denies chest pain, abdominal pain, n/v. OBJECTIVE: Vital Signs Period Temp Pulse Resp BP Sys/Gallagher Pulse Ox Last 24 Hr 98.5 F-99 F 64-108 11-19 88-118/49-79 87-99 GENERAL: The patient is awake, alert, and fully oriented, in mild distress HEAD: Normal with no signs of trauma. EYES: PERRL, extraocular movements intact ENT: Ears normal, nares patent, dry mucous membranes. NECK: Trachea midline LUNGS: Breath sounds equal, clear to auscultation bilaterally, no accessory muscle use. HEART: Regular rate and rhythm, no murmur ABDOMEN: Soft, nontender, nondistended, normoactive bowel sounds BACK: pinpoint area of erythema on left upper back just lateral to bandage EXTREMITIES: Warm, well-perfused, no edema. Can actively move both feet. NEUROLOGICAL: Normal speech SKIN: Warm, dry, normal turgor guzman 1100cc Laboratory Results - last 24 hr 09/15/19 09/15/19 05:20 05:20 WBC 11.0 H RBC 3.06 L Hgb 9.3 L Hct 27.7 L MCV 90.6 MCH 30.3 MCHC 33.4 RDW 14.5 Plt Count 295 MPV 8.3 Absolute Neuts (auto) 8.4 H Neutrophils % 76.2 Lymphocytes % 14.3 Monocytes % 4.6 Eosinophils % 4.5 Basophils % 0.4 Nucleated RBC % 0 Sodium 142 Potassium 4.3 Chloride 105 Carbon Dioxide 34 H Anion Gap 4 L BUN 7.1 Creatinine 0.4 L Est GFR (CKD-EPI)AfAm 134.00 Est GFR (CKD-EPI)NonAf 115.62 Random Glucose 100 Calcium 8.0 L Magnesium 1.9 Active Medications Generic Name Dose Route Start Last Admin Trade Name Freq PRN Reason Stop Dose Admin Acetaminophen 1,000 mg 09/09/19 17:00 09/15/19 09:55 Ofirmev Injection - IVPB 09/15/19 16:59 1,000 mg Q8H ARNIE Administration Amitriptyline HCl 100 mg 09/10/19 16:26 09/14/19 22:30 Elavil - PO 100 mg HS ARNIE Administration Dexamethasone Sodium Phosphate 4 mg 09/11/19 18:40 Decadron Injection - IVPUSH ONCE PRN NAUSEA AND/OR VOMITING Diphenhydramine HCl 50 mg 09/15/19 10:00 09/15/19 10:05 Benadryl - PO 50 mg BID ARNIE Administration Gabapentin 600 mg 09/13/19 14:00 09/15/19 06:48 Neurontin - PO 600 mg TID ARNIE Administration Hydromorphone HCl 10 mg 09/12/19 20:00 09/14/19 22:32 Hydromorphone 10 Mg/50 Ml-Ns SALES ACCOUNT REPRESENTATIVE 09/19/19 19:57 10 mg SALES ACCOUNT REPRESENTATIVE ARNIE Administration Protocol Ketorolac Tromethamine 30 mg 09/12/19 10:00 09/15/19 10:06 Toradol Injection - IVPUSH 09/17/19 09:59 30 mg Q8H-IV ARNIE Administration Lorazepam 2 mg 09/10/19 10:27 09/15/19 10:05 Ativan Injection - IVPUSH 2 mg Q6H PRN Administration MUSCLE SPASMS Mupirocin 1 applic 09/15/19 10:45 Bactroban 2% Ointment - TP BID ARNIE Ondansetron HCl 4 mg 09/09/19 16:47 09/13/19 20:27 Zofran Injection IVPUSH 4 mg Q6H PRN Administration NAUSEA AND/OR VOMITING Ondansetron HCl 4 mg 09/11/19 18:40 Zofran Injection IVPUSH Q4H PRN NAUSEA AND/OR VOMITING Promethazine HCl 12.5 mg 09/11/19 18:43 Phenergan Injection - IVPB Q6H PRN NAUSEA AND/OR VOMITING ASSESSMENT/PLAN: Nava Tafoya is a 59y/o female with multiple (~30) back and spine surgeries, complex global myofascial pain syndrome, recurrent spinal stenosis, multiple sclerosis, and mechanical thoracolumbar instability who presents for spinal surgery. This includes inspection fusion mass (c-spine), T1-3 laminectomies, C7- T4 in situ fusion, inspection fusion mass (thoracolumbar spine), posterior instrumentation T8-S1, posterior arthrodesis T8-S1, bone allograft, bone autograft, and complex wound closure (60cm). #complex spinal pain 2/2 mechanical instability and myofascial decompensation s/ p multi-level spinal intervention, POD 6. Planned Bakers slide bilaterally tomorrow. -scheduled IV tylenol -dilaudid SALES ACCOUNT REPRESENTATIVE pump -gabapentin 300mg TID -Ativan 2mg Q6H PRN muscle spasms -zofran PRN -toradol PRN -mechanical SCDs -PT -no bending, lifting (>5 lbs), or twisting for 9-12 months, f/u 7-10 days after rehab d/c #hypomagnesemia, resolved -monitor #normocytic anemia Recent surgery. No sign of overt bleeding. Hb 9.3 today. -monitor FEN PO fluids monitor Mg, Hb fat/sodium controlled diet dispo: surgery tomorrow ICU SNF Visit type - Emergency Visit Emergency Visit: Yes ED Registration Date: 09/09/19 Care time: The patient presented to the Emergency Department on the above date and was hospitalized for further evaluation of their emergent condition. - New Patient This patient is new to me today: No - Critical Care Critical Care patient: Yes Total Critical Care Time (in minutes): 35 Critical Care Statement: The care of this patient involved high complexity decision making to prevent further life threatening deterioration of the patient 's condition and/or to evaluate & treat vital organ system(s) failure or risk of failure. - Discharge Referral Referred to [facility] No ATTENDING PHYSICIAN STATEMENT I saw and evaluated the patient. I reviewed the resident's note and discussed the case with the resident. I agree with the resident's findings and plan as documented. SUBJECTIVE: OBJECTIVE: ASSESSMENT AND PLAN:
--- NOTE | 2019-09-15 16:01 | PN ---
Teaching Attending Note Name of Resident: Lisandra Aceves ATTENDING PHYSICIAN STATEMENT I saw and evaluated the patient. I reviewed the resident's note and discussed the case with the resident. I agree with the resident's findings and plan as documented. SUBJECTIVE: Patient seen and examined at bedside with present she endorses her pain is well controlled she denies nausea vomiting fever chills chest pain or SOB still cant move RLE well using incentive spirometer OBJECTIVE: Constitutional: Yes: Well Nourished, No Distress, Calm Eyes: Yes: Conjunctiva Clear Neck: Yes: Other (Right IJ in place C/D/I) Cardiovascular: Yes: Regular Rate and Rhythm, S1, S2 Respiratory: Yes: CTA Bilaterally Musculoskeletal: Yes: Back Pain, Muscle Weakness (RLE) Edema: No Wound/Incision: Yes: Clean/Dry, Other (Dressed with Coban. was not taken down. Will defer to surgery. patient was log rolled and dressing C/D/I) Neurological: Yes: Alert, Oriented ASSESSMENT AND PLAN: 59F with h/o MS, lumbar spine stenosis and multiple other back surgeries, Complex global myofascial pain syndrome, Recurrent spinal stenosis, Multiple sclerosis, Mechanical thoracolumbar instability POD #5 s/p 1. Inspection fusion mass (cervical spine). 2. T1, T2, T3 laminectomies. 3. C7-T4 in situ fusion. 4. Inspection fusion mass (thoracolumbar spine). 5. Posterior instrumentation T8-S1. 6. Posterior arthrodesis T8-S1. 7. Bone allograft. 8. Bone autograft. 9. 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 NPO after midnight incentive spirometry continue ICU care critical care time 37 mins reviewing chart and managing patient
[2019-09-15] MEDS ORDERED: SODIUM CHLORIDE 0.9% 500 ML INFUS.BAG IV ONE (21:18)
[2019-09-15] MEDS: MUPIROCIN 2% TOPICAL OINTMENT 22 GM TUBE TP SCH (22:58)
[2019-09-15] MEDS: AMITRIPTYLINE HCL 25 MG TABLET (FP) PO SCH (23:05)
[2019-09-16] MEDS: KETOROLAC TROMETHAMINE 30 MG/1 ML VIAL IVPUSH SCH ×3 (01:22→17:35)
[2019-09-16 02:40] LABS: PH,URINE 5.5 (5.0-8.0); URINE APPEARANCE CLEAR; URINE BILIRUBIN NEGATIVE (NEGATIVE); URINE COLOR YELLOW; URINE GLUCOSE (UA) NEGATIVE (NEGATIVE); URINE KETONE NEGATIVE (NEGATIVE); URINE LEUK ESTERASE NEGATIVE (NEGATIVE); URINE NITRITE NEGATIVE (NEGATIVE); URINE PROTEIN NEGATIVE (NEGATIVE)
[2019-09-16] MEDS: GABAPENTIN 300 MG CAPSULE (FP) PO SCH ×3 (06:26→21:50)
[2019-09-16 06:37] LABS: BASO % 0.2 % (0-2.0); EOS % 5.9 % (0-4.5); HEMOGLOBIN 8.3 GM/dL (10.7-15.3); LYMPH % 12.9 % (8-40); MCH 31.4 pg (25.7-33.7); MCHC 34.5 g/dl (32.0-36.0); MEAN CELL VOLUME 90.9 fl (80-96); MEAN PLT VOLUME 8.1 fl (7.5-11.1); MONO % 5.5 % (3.8-10.2); NEUT % 75.5 % (42.8-82.8); PLATELET COUNT 331 K/MM3 (134-434); RBC 2.63 M/mm3 (3.60-5.2); RDW 14.7 % (11.6-15.6); WHITE BLOOD COUNT 10.5 K/mm3 (4.0-10.0)
[2019-09-16 07:08] LABS: ALBUMIN 1.8 g/dl (3.4-5.0); BILIRUBIN,TOTAL 0.4 mg/dL (0.2-1); BLOOD UREA NITROGEN 9.4 mg/dL (7-18); CALCIUM 7.5 mg/dL (8.5-10.1); CREATININE 0.4 mg/dL (0.55-1.3); MAGNESIUM 1.7 mg/dL (1.8-2.4); POTASSIUM 4.3 mmol/L (3.5-5.1); TOT PROT 4.9 g/dl (6.4-8.2)
--- NOTE | 2019-09-16 09:07 | PN ---
Progress Note (short form) - Note Progress Note: Neurology HISTORY OF PRESENT ILLNESS: 59 y/o female with hx of multiple (~30) back and spine surgeries, complex global myofascial pain syndrome, recurrent spinal stenosis, multiple sclerosis, mechanical thoracolumbar instability, admitted for surgical intervention and per notes completed: 1) inspection fusion mass (c-spine), 2) T1-3 laminectomies, 3) C7-T4 in situ fusion, 4) Inspection fusion mass (thoracolumbar spine), 5) posterior instrumentation T8-S1, 6) posteroir arthrodesis T8-S1, 7) bone allograft, 8) bone autograft, 9) complex wound closure (60cm). 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 Complaints of pain and pain mgmt has been consulted. Extensive conversation regarding her MS history which dates back to >10 years and reports previously on BetaSeron but felt no difference. States last MRI brain was 1 year ago, offered repeat which patient would like to defer and reports prior imaging stable and states she will not be able to stay flat and tolerate procedure. She does not want to start on MS meds and would like to focus on spinal mgmt at this time. As outpatient, would advise MRI brain with and without contrast to start with. Discussed the same with the patient this morning and again she confirmed desire did not have any further evaluation of her multiple sclerosis. Reviewed note from Ortho, was being plaaned for aguilar slide bilterally for feet for this morning, discussed with nurse who indicated the patient had spiked fever overnight and therefore procedure is on hold for now. Reviewed notes from the weekend and no significant neurologic changes although continues to appear and complaining of pain. Active Medications Acetaminophen (Ofirmev Injection -) 1,000 mg IVPB Q6H PRN PRN Reason: fever or pain Amitriptyline HCl (Elavil -) 100 mg PO HS [facility] Last Admin: 09/15/19 23:05 Dose: 100 mg Dexamethasone Sodium Phosphate (Decadron Injection -) 4 mg IVPUSH ONCE PRN PRN Reason: NAUSEA AND/OR VOMITING Diphenhydramine HCl (Benadryl -) 50 mg PO BID [facility] Last Admin: 09/15/19 23:06 Dose: 50 mg Gabapentin (Neurontin -) 600 mg PO TID [facility] Last Admin: 10/21/19 06:26 Dose: 600 mg Hydromorphone HCl (Hydromorphone 10 Mg/50 Ml-Ns) 10 mg TRAFFIC PERSONNEL SUPERVISOR TRAFFIC PERSONNEL SUPERVISOR [facility]; Protocol Stop: 09/19/19 19:57 Last Admin: 09/14/19 22:32 Dose: 10 mg Ketorolac Tromethamine (Toradol Injection -) 30 mg IVPUSH Q8H-IV [facility]NIE Stop: 09/17/19 09:59 Last Admin: 09/16/19 01:22 Dose: 30 mg Lorazepam (Ativan Injection -) 2 mg IVPUSH Q6H PRN PRN Reason: MUSCLE SPASMS Last Admin: 09/15/19 23:21 Dose: 2 mg Mupirocin (Bactroban 2% Ointment -) 1 applic TP BID [facility] Last Admin: 09/15/19 22:58 Dose: 1 applic Ondansetron HCl (Zofran Injection) 4 mg IVPUSH Q6H PRN PRN Reason: NAUSEA AND/OR VOMITING Last Admin: 09/13/19 20:27 Dose: 4 mg Ondansetron HCl (Zofran Injection) 4 mg IVPUSH Q4H PRN PRN Reason: NAUSEA AND/OR VOMITING Promethazine HCl (Phenergan Injection -) 12.5 mg IVPB Q6H PRN PRN Reason: NAUSEA AND/OR VOMITING PHYSICAL EXAMINATION Vital Signs Period Temp Pulse Resp BP Sys/Gallagher Pulse Ox Last 24 Hr 98.1 F-101 F 90-106 12-19 87-125/43-90 95-97 GENERAL: Awake, alert, and fully oriented, in no acute distress. HEAD: Normal with no signs of trauma. EYES: Pupils equal, round and reactive to light, extraocular movements intact, sclera anicteric, conjunctiva clear. No lid lag. EARS, NOSE, THROAT: Ears normal, nares patent, oropharynx clear without exudates. Moist mucous membranes. NECK: Normal range of motion, supple without lymphadenopathy, JVD, or masses. LUNGS: Breath sounds equal, clear to auscultation bilaterally. No wheezes, and no crackles. No accessory muscle use. HEART: Regular rate and rhythm, normal S1 and S2 without murmur, rub or gallop. ABDOMEN: Soft, nontender, not distended, normoactive bowel sounds, no guarding, no rebound, no masses. No hepatomegaly or splenomegaly. MUSCULOSKELETAL: Normal range of motion at all joints. No bony deformities or tenderness. No CVA tenderness. UPPER EXTREMITIES: 2+ pulses, warm, well-perfused. No cyanosis. No clubbing. Cap refill <2 seconds. No peripheral edema. LOWER EXTREMITIES: 2+ pulses, warm, well-perfused. No calf tenderness. No peripheral edema. NEUROLOGICAL: Cranial nerves II-XII intact. Normal speech. Normal gait. PSYCHIATRIC: Cooperative. Good eye contact. Appropriate mood and affect. SKIN: Warm, dry, normal turgor, no rashes or lesions noted. CBCD WBC 10.5 K/mm3 (4.0-10.0) H 09/16/19 06:00 RBC 2.63 M/mm3 (3.60-5.2) L 09/16/19 06:00 Hgb 8.3 GM/dL (10.7-15.3) L 09/16/19 06:00 Hct 24.0 % (32.4-45.2) L 09/16/19 06:00 MCV 90.9 fl (80-96) 09/16/19 06:00 MCHC 34.5 g/dl (32.0-36.0) 09/16/19 06:00 RDW 14.7 % (11.6-15.6) 09/16/19 06:00 Plt Count 331 K/MM3 (134-434) 09/16/19 06:00 MPV 8.1 fl (7.5-11.1) 09/16/19 06:00 CMP Sodium 140 mmol/L (136-145) 09/16/19 06:00 Potassium 4.3 mmol/L (3.5-5.1) 09/16/19 06:00 Chloride 105 mmol/L (98-107) 09/16/19 06:00 Carbon Dioxide 29 mmol/L (21-32) 09/16/19 06:00 Anion Gap 5 MMOL/L (8-16) L 09/16/19 06:00 BUN 9.4 mg/dL (7-18) 09/16/19 06:00 Creatinine 0.4 mg/dL (0.55-1.3) L 09/16/19 06:00 Random Glucose 92 mg/dL (74-106) 09/16/19 06:00 Calcium 7.5 mg/dL (8.5-10.1) L 09/16/19 06:00 Total Bilirubin 0.4 mg/dL (0.2-1) 09/16/19 06:00 AST 37 U/L (15-37) 09/16/19 06:00 ALT 31 U/L (13-61) 09/16/19 06:00 Alkaline Phosphatase 165 U/L (45-117) H 09/16/19 06:00 Total Protein 4.9 g/dl (6.4-8.2) L 09/16/19 06:00 Albumin 1.8 g/dl (3.4-5.0) L 09/16/19 06:00 ASSESSMENT/PLAN: 59 y/o female with hx of multiple (~30) back and spine surgeries, complex global myofascial pain syndrome, recurrent spinal stenosis, multiple sclerosis, mechanical thoracolumbar instability, POD #0 s/p 1) inspection fusion mass (c- spine), 2) T1-3 laminectomies, 3) C7-T4 in situ fusion, 4) Inspection fusion mass (thoracolumbar spine), 5) posterior instrumentation T8-S1, 6) posteroir arthrodesis T8-S1, 7) bone allograft, 8) bone autograft, 9) complex wound closure (60cm). 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 Complaints of pain and pain mgmt has been consulted. Extensive conversation regarding her MS history which dates back to > 10 years and reports previously on BetaSeron but felt no difference. States last MRI brain was 1 year ago, offered repeat which patient would like to defer and reports prior imaging stable and states she will not be able to stay flat and tolerate procedure. She does not want to start on MS meds and would like to focus on spinal mgmt at this time. As outpatient, would advise MRI brain with and without contrast to start with. Follow up pain mgmt, pReviewed note from Ortho, was being plaaned for aguilar slide bilterally for feet for this morning, discussed with nurse who indicated the patient had spiked fever overnight and therefore procedure is on hold for now. Reviewed notes from the weekend and no significant neurologic changes although continues to appear and complaining of pain. Continued medical optimization recommended. Infectious workup in place, patient reportedly had blood cultures sent off her nurse, continue monitor febrile status, antibiotics as per primary. Aguilar's procedure plan as per Ortho. Pain mgmt as best able. Critical care time 35 mins.
[2019-09-16] MEDS: MUPIROCIN 2% TOPICAL OINTMENT 22 GM TUBE TP SCH ×2 (09:33→21:58)
[2019-09-16] MEDS: diphenhydrAMINE HCL 25 MG CAPSULE (FP) PO SCH ×2 (09:33→21:51)
--- NOTE | 2019-09-16 11:53 | PN ---
Teaching Attending Note Name of Resident: Lucas Vasques ATTENDING PHYSICIAN STATEMENT I saw and evaluated the patient. I reviewed the resident's note and discussed the case with the resident. I agree with the resident's findings and plan as documented. SUBJECTIVE: Patient seen and examined in the ICU. Still with significant pain: 06/05 which she says is better. For possible return to OR Monday. Overall no change in exam. No CP or SOB. OBJECTIVE: Intake & Output 09/13/19 09/14/19 09/15/19 09/16/19 23:59 23:59 23:59 23:59 Intake Total 2830 740 990 0 Output Total 1930 2463 1500 600 Balance 900 -1723 -510 -600 Weight 202 lb 208 lb 4 oz Last Vital Signs Temp Pulse Resp BP Pulse Ox 99.2 F 95 H 18 112/68 95 09/16/19 06:00 09/16/19 06:00 09/16/19 06:00 09/16/19 06:00 09/16/19 08:00 Active Medications Acetaminophen (Ofirmev Injection -) 1,000 mg IVPB Q6H PRN PRN Reason: fever or pain Amitriptyline HCl (Elavil -) 100 mg PO HS [facility] Last Admin: 09/15/19 23:05 Dose: 100 mg Dexamethasone Sodium Phosphate (Decadron Injection -) 4 mg IVPUSH ONCE PRN PRN Reason: NAUSEA AND/OR VOMITING Diphenhydramine HCl (Benadryl -) 50 mg PO BID [facility] Last Admin: 09/16/19 09:33 Dose: 50 mg Gabapentin (Neurontin -) 600 mg PO TID [facility] Last Admin: 09/16/19 06:26 Dose: 600 mg Hydromorphone HCl (Hydromorphone 10 Mg/50 Ml-Ns) 10 mg REQUISITION APPROVER REQUISITION APPROVER [facility]; Protocol Stop: 09/19/19 19:57 Last Admin: 09/14/19 22:32 Dose: 10 mg Ketorolac Tromethamine (Toradol Injection -) 30 mg IVPUSH Q8H-IV [facility] Stop: 09/17/19 09:59 Last Admin: 09/16/19 09:33 Dose: 30 mg Lorazepam (Ativan Injection -) 2 mg IVPUSH Q6H PRN PRN Reason: MUSCLE SPASMS Last Admin: 09/15/19 23:21 Dose: 2 mg Mupirocin (Bactroban 2% Ointment -) 1 applic TP BID [facility] Last Admin: 09/16/19 09:33 Dose: 1 applic Ondansetron HCl (Zofran Injection) 4 mg IVPUSH Q6H PRN PRN Reason: NAUSEA AND/OR VOMITING Last Admin: 09/13/19 20:27 Dose: 4 mg Ondansetron HCl (Zofran Injection) 4 mg IVPUSH Q4H PRN PRN Reason: NAUSEA AND/OR VOMITING Promethazine HCl (Phenergan Injection -) 12.5 mg IVPB Q6H PRN PRN Reason: NAUSEA AND/OR VOMITING Gen: Awake and alert, uncomfortable due to pain Heart: RRR Lung: decreased breath sounds at the bases Abd: soft, nontender Ext: no edema STERILE PROC TECH: Awake and alert, LLE 0/5 Laboratory Results - last 24 hr 09/16/19 09/16/19 09/16/19 00:00 06:00 06:00 WBC 10.5 H RBC 2.63 L Hgb 8.3 L Hct 24.0 L MCV 90.9 MCH 31.4 MCHC 34.5 RDW 14.7 Plt Count 331 MPV 8.1 Absolute Neuts (auto) 7.9 Neutrophils % 75.5 Lymphocytes % 12.9 Monocytes % 5.5 Eosinophils % 5.9 H Basophils % 0.2 Nucleated RBC % 0 Sodium 140 Potassium 4.3 Chloride 105 Carbon Dioxide 29 Anion Gap 5 L BUN 9.4 Creatinine 0.4 L Est GFR (CKD-EPI)AfAm 134.00 Est GFR (CKD-EPI)NonAf 115.62 Random Glucose 92 Calcium 7.5 L Magnesium 1.7 L Total Bilirubin 0.4 AST 37 ALT 31 Alkaline Phosphatase 165 H Total Protein 4.9 L Albumin 1.8 L Urine Color Yellow Urine Appearance Clear Urine pH 5.5 Ur Specific [place] 1.023 Urine Protein Negative Urine Glucose (UA) Negative Urine Ketones Negative Urine Blood Negative Urine Nitrite Negative Urine Bilirubin Negative Urine Urobilinogen 1.0 Ur Leukocyte Esterase Negative ASSESSMENT AND PLAN: POD #7: 1. Inspection fusion mass (cervical spine). 2. T1, T2, T3 laminectomies. 3. C7-T4 in situ fusion. 4. Inspection fusion mass ( thoracolumbar spine). 5. Posterior instrumentation T8-S1. 6. Posterior arthrodesis T8-S1. 7. Bone allograft. 8. Bone autograft. 9. Complex wound closure (60cm) Progressive Kyphoscoliosis - pain control - incentive spirometry - IVF - PO as tolerated - antiemetics - monitor drain output - activity/diet/DVT prophylaxis per surgery Dr Garza
[2019-09-16] MEDS: LORazepam 2 MG/ML SDV VIAL IVPUSH PRN ×2 (12:00→19:46)
[2019-09-16] MEDS ORDERED: MAGNESIUM SULF 50% (8.12 MEQ/2 ML-1 GM VIAL) IVPB ONE (15:21)
--- NOTE | 2019-09-16 15:24 | PN ---
Physical Exam: SUBJECTIVE: Patient seen and examined. She reports back and leg pain 7/10, unchanged from yesterday. Pt is upset as she has been unable to bear weight during PT evaluation. OBJECTIVE: Vital Signs Period Temp Pulse Resp BP Sys/Gallagher Pulse Ox Last 24 Hr 98.1 F-101 F 90-106 12- 87-136/43-97 95-97 GENERAL: The patient is awake, alert, and fully oriented, in mild distress HEAD: Normal with no signs of trauma. EYES: PERRL, extraocular movements intact ENT: Ears normal, nares patent, dry mucous membranes. NECK: Trachea midline LUNGS: Breath sounds equal, clear to auscultation bilaterally, no accessory muscle use. HEART: Regular rate and rhythm, no murmur ABDOMEN: Soft, nontender, nondistended, normoactive bowel sounds BACK: pinpoint area of erythema on left upper back just lateral to bandage EXTREMITIES: Warm, well-perfused, no edema. Can actively move both feet L>R. NEUROLOGICAL: Normal speech SKIN: Warm, dry, normal turgor Laboratory Results - last 24 hr CBC, BMP 09/16/19 06:00 09/16/19 06:00 Active Medications Acetaminophen (Ofirmev Injection -) 1,000 mg IVPB Q6H PRN PRN Reason: fever or pain Amitriptyline HCl (Elavil -) 100 mg PO HS [facility] Last Admin: 09/15/19 23:05 Dose: 100 mg Dexamethasone Sodium Phosphate (Decadron Injection -) 4 mg IVPUSH ONCE PRN PRN Reason: NAUSEA AND/OR VOMITING Diphenhydramine HCl (Benadryl -) 50 mg PO BID [facility] Last Admin: 09/16/19 09:33 Dose: 50 mg Gabapentin (Neurontin -) 600 mg PO TID [facility] Last Admin: 09/16/19 14:07 Dose: 600 mg Hydromorphone HCl (Hydromorphone 10 Mg/50 Ml-Ns) 10 mg COMMUNITY RESOURCE CONSULTANT COMMUNITY RESOURCE CONSULTANT [facility]; Protocol Stop: 09/19/19 19:57 Last Admin: 09/14/19 22:32 Dose: 10 mg Ketorolac Tromethamine (Toradol Injection -) 30 mg IVPUSH Q8H-IV [facility] Stop: 09/17/19 09:59 Last Admin: 09/16/19 09:33 Dose: 30 mg Lorazepam (Ativan Injection -) 2 mg IVPUSH Q6H PRN PRN Reason: MUSCLE SPASMS Last Admin: 09/16/19 12:00 Dose: 2 mg Mupirocin (Bactroban 2% Ointment -) 1 applic TP BID [facility] Last Admin: 09/16/19 09:33 Dose: 1 applic Ondansetron HCl (Zofran Injection) 4 mg IVPUSH Q6H PRN PRN Reason: NAUSEA AND/OR VOMITING Last Admin: 09/13/19 20:27 Dose: 4 mg Ondansetron HCl (Zofran Injection) 4 mg IVPUSH Q4H PRN PRN Reason: NAUSEA AND/OR VOMITING Promethazine HCl (Phenergan Injection -) 12.5 mg IVPB Q6H PRN PRN Reason: NAUSEA AND/OR VOMITING ASSESSMENT/PLAN: Ms. Tafoya is a 59y/o female with multiple (~30) back and spine surgeries, complex global myofascial pain syndrome, recurrent spinal stenosis, multiple sclerosis, and mechanical thoracolumbar instability who presents for spinal surgery. This includes inspection fusion mass (c-spine), T1-3 laminectomies, C7- T4 in situ fusion, inspection fusion mass (thoracolumbar spine), posterior instrumentation T8-S1, posterior arthrodesis T8-S1, bone allograft, bone autograft, and complex wound closure (60cm). #Complex spinal pain 2/2 mechanical instability and myofascial decompensation s/ p multi-level spinal intervention, POD 7. Planned Bakers Slide procedure with ortho. Surgery deferred until Monday due to fever overnight. Will cont to monitor Pain management Scheduled IV tylenol Dilaudid COMMUNITY RESOURCE CONSULTANT pump Gabapentin 300mg TID Ativan 2mg Q6H PRN muscle spasms Zofran PRN PT eval daily. No bending, lifting (>5 lbs), or twisting for 9-12 months, f/ u 7-10 days after rehab d/c #Normocytic anemia Recent surgery, no sign of overt bleeding Hgb: 8.3, down from 9.3 Cont to monitor closely #Hypomagnesemia M.7 today, repleted with 1gm IV Cont to monitor #FEN Monitor Mg and Hb Sodium controlled diet #Dispo: Surgery on Tuesday 09/18 Monitor in ICU SNF Visit type - Emergency Visit Emergency Visit: No - New Patient This patient is new to me today: Yes Date on this admission: 09/16/19 - Critical Care Critical Care patient: No ATTENDING PHYSICIAN STATEMENT I saw and evaluated the patient. I reviewed the resident's note and discussed the case with the resident. I agree with the resident's findings and plan as documented. SUBJECTIVE: OBJECTIVE: ASSESSMENT AND PLAN:
[2019-09-16] MEDS: ACETAMINOPHEN 1000 MG/100 ML VIAL (NON FORMULARY) IVPB PRN ×2 (16:34→22:11)
--- NOTE | 2019-09-16 18:06 | PN ---
Progress Note (short form) - Note Progress Note: POD#7 ICU Stable Awake Fully orientated TPS Did walk in the room with PT Temp As per chart CVS Stable RESP AE equal bilaterally ABD Soft Distended DId pass flatus Has passed stool NEURO At baseline MSKeletal Wound bandage dry Drain removed ` Feet Bilateral equinus PLAN Continue Medical and nursing mx in ICU Log roll 30 to 45 minutes Pain MX as per anaesthesia team For pain mx consult when stable PT Mobilize all joints passively Sit Will perform Aguilar slide bilaterally once Temp has settled.and place feet in AFO and Ortho shoes with steel shank and rockerbottom soles
--- NOTE | 2019-09-16 18:32 | PN ---
Teaching Attending Note Name of Resident: Chanda Graham ATTENDING PHYSICIAN STATEMENT I saw and evaluated the patient. I reviewed the resident's note and discussed the case with the resident. I agree with the resident's findings and plan as documented. SUBJECTIVE: Patient continues to have pain in her back and legs. OBJECTIVE: Vital Signs Period Temp Pulse Resp BP Sys/Gallagher Pulse Ox Last 24 Hr 98.1 F-99.2 F 90-106 12-21 87-136/43-97 95-97 HEART: S1S2, RRR LUNGS: Clear ABDOMEN: Obese, soft, non-tender, non-distended, normal BS EXTREMITIES: No edema Laboratory Results - last 24 hr 09/16/19 09/16/19 09/16/19 00:00 06:00 06:00 WBC 10.5 H RBC 2.63 L Hgb 8.3 L Hct 24.0 L MCV 90.9 MCH 31.4 MCHC 34.5 RDW 14.7 Plt Count 331 MPV 8.1 Absolute Neuts (auto) 7.9 Neutrophils % 75.5 Lymphocytes % 12.9 Monocytes % 5.5 Eosinophils % 5.9 H Basophils % 0.2 Nucleated RBC % 0 Sodium 140 Potassium 4.3 Chloride 105 Carbon Dioxide 29 Anion Gap 5 L BUN 9.4 Creatinine 0.4 L Est GFR (CKD-EPI)AfAm 134.00 Est GFR (CKD-EPI)NonAf 115.62 Random Glucose 92 Calcium 7.5 L Magnesium 1.7 L Total Bilirubin 0.4 AST 37 ALT 31 Alkaline Phosphatase 165 H Total Protein 4.9 L Albumin 1.8 L Urine Color Yellow Urine Appearance Clear Urine pH 5.5 Ur Specific [place] 1.023 Urine Protein Negative Urine Glucose (UA) Negative Urine Ketones Negative Urine Blood Negative Urine Nitrite Negative Urine Bilirubin Negative Urine Urobilinogen 1.0 Ur Leukocyte Esterase Negative Current Medications Generic Name Dose Route Start Last Admin Trade Name Freq PRN Reason Stop Dose Admin Acetaminophen 1,000 mg 09/15/19 17:45 09/16/19 16:34 Ofirmev Injection - IVPB 1,000 mg Q6H PRN Administration fever or pain Amitriptyline HCl 100 mg 09/10/19 16:26 09/15/19 23:05 Elavil - PO 100 mg HS [facility] Administration Dexamethasone Sodium Phosphate 4 mg 09/11/19 18:40 Decadron Injection - IVPUSH ONCE PRN NAUSEA AND/OR VOMITING Diphenhydramine HCl 50 mg 09/15/19 10:00 09/16/19 09:33 Benadryl - PO 50 mg BID [facility] Administration Gabapentin 600 mg 09/13/19 14:00 09/16/19 14:07 Neurontin - PO 600 mg TID [facility] Administration Hydromorphone HCl 10 mg 09/12/19 20:00 09/14/19 22:32 Hydromorphone 10 Mg/50 Ml-Ns DIRECTOR OF RETENTION 09/19/19 19:57 10 mg DIRECTOR OF RETENTION ARNIE Administration Protocol Ketorolac Tromethamine 30 mg 09/12/19 10:00 09/16/19 17:35 Toradol Injection - IVPUSH 09/17/19 09:59 30 mg Q8H-IV ARNIE Administration Lorazepam 2 mg 09/10/19 10:27 09/16/19 12:00 Ativan Injection - IVPUSH 2 mg Q6H PRN Administration MUSCLE SPASMS Mupirocin 1 applic 09/15/19 10:45 09/16/19 09:33 Bactroban 2% Ointment - TP 1 applic BID [facility] Administration Ondansetron HCl 4 mg 09/09/19 16:47 09/13/19 20:27 Zofran Injection IVPUSH 4 mg Q6H PRN Administration NAUSEA AND/OR VOMITING Ondansetron HCl 4 mg 09/11/19 18:40 Zofran Injection IVPUSH Q4H PRN NAUSEA AND/OR VOMITING Promethazine HCl 12.5 mg 09/11/19 18:43 Phenergan Injection - IVPB Q6H PRN NAUSEA AND/OR VOMITING ASSESSMENT AND PLAN: This is a 59 year old woman with a history of MS, recurrent lumbar spinal stenosis, multiple back surgeries, complex global myofascial pain syndrome, mechanical thoracolumbar instability who was admitted for spine surgery. POD #5 s/p 1. Inspection fusion mass (cervical spine). 2. T1, T2, T3 laminectomies. 3. C7-T4 in situ fusion. 4. Inspection fusion mass ( thoracolumbar spine). 5. Posterior instrumentation T8-S1. 6. Posterior arthrodesis T8-S1. 7. Bone allograft. 8. Bone autograft. 9. Complex wound closure Medicine consulted for medical management 1. 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 Lumbar spinal stenosis 3. Complex global myofascial pain syndrome 4. Multiple sclerosis 5. Anemia 6. Hypophosphatemia - Improved 7. Hypomagnesemia - Magnesium supplementation
--- NOTE | 2019-09-16 18:46 | PN ---
Physical Exam: SUBJECTIVE: Patient seen and examined by the bedside. She is endorses feeling feverish and generally unwell, states that she is anxious about her surgery being postponed. OBJECTIVE: Vital Signs Period Temp Pulse Resp BP Sys/Gallagher Pulse Ox Last 24 Hr 98.1 F-99.2 F 90-106 12-21 87-136/43-97 95-97 GENERAL: The patient is AOx3, and fully oriented, complaining of back pain HEAD: Normal with no signs of trauma. EYES: PERRL, extraocular movements intact, sclera anicteric, conjunctiva clear. No ptosis. LUNGS: Breath sounds equal, clear to auscultation bilaterally, no wheezes, no crackles, no accessory muscle use. HEART: Regular rate and rhythm, S1, S2 without murmur, rub or gallop. ABDOMEN: Soft, nontender, nondistended, normoactive bowel sounds, no guarding, no rebound, no hepatosplenomegaly, no masses. EXTREMITIES: 2+ pulses, warm, well-perfused, no edema. NEUROLOGICAL: Lower limb weakness Laboratory Results - last 24 hr 09/16/19 09/16/19 09/16/19 00:00 06:00 06:00 WBC 10.5 H RBC 2.63 L Hgb 8.3 L Hct 24.0 L MCV 90.9 MCH 31.4 MCHC 34.5 RDW 14.7 Plt Count 331 MPV 8.1 Absolute Neuts (auto) 7.9 Neutrophils % 75.5 Lymphocytes % 12.9 Monocytes % 5.5 Eosinophils % 5.9 H Basophils % 0.2 Nucleated RBC % 0 Sodium 140 Potassium 4.3 Chloride 105 Carbon Dioxide 29 Anion Gap 5 L BUN 9.4 Creatinine 0.4 L Est GFR (CKD-EPI)AfAm 134.00 Est GFR (CKD-EPI)NonAf 115.62 Random Glucose 92 Calcium 7.5 L Magnesium 1.7 L Total Bilirubin 0.4 AST 37 ALT 31 Alkaline Phosphatase 165 H Total Protein 4.9 L Albumin 1.8 L Urine Color Yellow Urine Appearance Clear Urine pH 5.5 Ur Specific [place] 1.023 Urine Protein Negative Urine Glucose (UA) Negative Urine Ketones Negative Urine Blood Negative Urine Nitrite Negative Urine Bilirubin Negative Urine Urobilinogen 1.0 Ur Leukocyte Esterase Negative Active Medications Generic Name Dose Route Start Last Admin Trade Name Freq PRN Reason Stop Dose Admin Acetaminophen 1,000 mg 10/20/19 17:45 09/16/19 16:34 Ofirmev Injection - IVPB 1,000 mg Q6H PRN Administration fever or pain Amitriptyline HCl 100 mg 09/10/19 16:26 09/15/19 23:05 Elavil - PO 100 mg HS ARNIE Administration Dexamethasone Sodium Phosphate 4 mg 09/11/19 18:40 Decadron Injection - IVPUSH ONCE PRN NAUSEA AND/OR VOMITING Diphenhydramine HCl 50 mg 09/15/19 10:00 09/16/19 09:33 Benadryl - PO 50 mg BID ARNIE Administration Gabapentin 600 mg 09/13/19 14:00 09/16/19 14:07 Neurontin - PO 600 mg TID ARNIE Administration Hydromorphone HCl 10 mg 09/12/19 20:00 09/14/19 22:32 Hydromorphone 10 Mg/50 Ml-Ns SENIOR COMPLIANCE ANALYST 09/19/19 19:57 10 mg SENIOR COMPLIANCE ANALYST ARNIE Administration Protocol Ketorolac Tromethamine 30 mg 09/12/19 10:00 09/16/19 17:35 Toradol Injection - IVPUSH 09/17/19 09:59 30 mg Q8H-IV ARNIE Administration Lorazepam 2 mg 09/10/19 10:27 09/16/19 12:00 Ativan Injection - IVPUSH 2 mg Q6H PRN Administration MUSCLE SPASMS Mupirocin 1 applic 09/15/19 10:45 09/16/19 09:33 Bactroban 2% Ointment - TP 1 applic BID ARNIE Administration Ondansetron HCl 4 mg 09/09/19 16:47 09/13/19 20:27 Zofran Injection IVPUSH 4 mg Q6H PRN Administration NAUSEA AND/OR VOMITING Ondansetron HCl 4 mg 09/11/19 18:40 Zofran Injection IVPUSH Q4H PRN NAUSEA AND/OR VOMITING Promethazine HCl 12.5 mg 09/11/19 18:43 Phenergan Injection - IVPB Q6H PRN NAUSEA AND/OR VOMITING ASSESSMENT/PLAN: This is a 59 YO F with PMH significant for MS, recurrent spinal stenosis and multiple spinal surgeries, complex global myofascial pain syndrome, and mechanical thoracolumbar instability. She was admitted for spinal surgery including inspection fusion mass (c-spine), T1-3 laminectomies, C7-T4 in situ fusion, inspection fusion mass (thoracolumbar spine), posterior instrumentation T8-S1, posterior arthrodesis T8-S1, bone allograft, bone autograft, and complex wound closure, and is currently POD 7, pending Bakers Slide procedure on Monday. #Neuro - Lorazepam 2mg IV Q6H PRN - Benadryl 50mg PO BID - Amytriptyline 100mg PO HS - Pain: Hydromorphone 10mg SENIOR COMPLIANCE ANALYST and Toradol 30mg IV Q8H - Nasuea: Promethazine 12.5mg IV Q6H PRN and Zofran 4mg IV Q4H #Ortho - Aguilar's slide procedure postponed to 09/18 due to fever overnight - Dilaudid SENIOR COMPLIANCE ANALYST pump - Gabapentin 600mg PO TID - Zofran PRN - PT eval daily. No bending, lifting (>5 lbs), or twisting for 9-12 months, f/u 7-10 days after rehab d/c #ID - Temp 101 at 6PM yesterday, patient feels feverish - WBC 11.0 -> 10.5 - Urine cx sent - Tylenol 1000mg IV Q6H #GI - Alk Phos 100 -> 165 #Renal - BUN/Cr 9.4/0.4 #Heme - Hg/Hct 9.3/27.7 -> 8.3/24.0 #FEN - Mg 1.7, repleted 1gm MgSO4 - Ca 8.0 -> 7.5 - Cholesterol controlled diet #Dispo: - Surgery on 09/18 - Monitor in ICU til then Visit type - Emergency Visit Emergency Visit: Yes ED Registration Date: 09/09/19 Care time: The patient presented to the Emergency Department on the above date and was hospitalized for further evaluation of their emergent condition. - New Patient This patient is new to me today: Yes Date on this admission: 09/17/19 - Critical Care Critical Care patient: Yes Total Critical Care Time (in minutes): 38 Critical Care Statement: The care of this patient involved high complexity decision making to prevent further life threatening deterioration of the patient 's condition and/or to evaluate & treat vital organ system(s) failure or risk of failure. ATTENDING PHYSICIAN STATEMENT I saw and evaluated the patient. I reviewed the resident's note and discussed the case with the resident. I agree with the resident's findings and plan as documented. SUBJECTIVE: OBJECTIVE: ASSESSMENT AND PLAN:
[2019-09-16] MEDS: HYDROmorphone *PCA* 10MG/50ML DISP.SYRIN PCA SCH (20:14)
[2019-09-16] MEDS ORDERED: PT OWN MED DRAWER 7, Y5N ONE (21:49)
[2019-09-16] MEDS: AMITRIPTYLINE HCL 25 MG TABLET (FP) PO SCH (21:51)
[2019-09-17] MEDS: KETOROLAC TROMETHAMINE 30 MG/1 ML VIAL IVPUSH SCH ×2 (01:28→09:40)
[2019-09-17] MEDS: GABAPENTIN 300 MG CAPSULE (FP) PO SCH ×3 (05:51→21:43)
[2019-09-17 07:08] LABS: BASO % 0.4 % (0-2.0); EOS % 6.8 % (0-4.5); HEMATOCRIT 23.2 % (32.4-45.2); HEMOGLOBIN 7.8 GM/dL (10.7-15.3); LYMPH % 14.1 % (8-40); MCH 30.5 pg (25.7-33.7); MCHC 33.4 g/dl (32.0-36.0); MEAN CELL VOLUME 91.3 fl (80-96); MEAN PLT VOLUME 7.6 fl (7.5-11.1); NEUT % 72.7 % (42.8-82.8); PLATELET COUNT 368 K/MM3 (134-434); RBC 2.55 M/mm3 (3.60-5.2); RDW 14.7 % (11.6-15.6); WHITE BLOOD COUNT 8.9 K/mm3 (4.0-10.0)
[2019-09-17 07:39] LABS: ALBUMIN 1.8 g/dl (3.4-5.0); BILIRUBIN,TOTAL 0.6 mg/dL (0.2-1); BLOOD UREA NITROGEN 8.9 mg/dL (7-18); CALCIUM 7.9 mg/dL (8.5-10.1); CREATININE 0.4 mg/dL (0.55-1.3); POTASSIUM 4.2 mmol/L (3.5-5.1)
[2019-09-17] MEDS: HYDROmorphone *PCA* 10MG/50ML DISP.SYRIN PCA SCH ×3 (07:52→21:54)
--- NOTE | 2019-09-17 08:47 | PN ---
Progress Note (short form) - Note Progress Note: Neurology HISTORY OF PRESENT ILLNESS: 59 y/o female with hx of multiple (~30) back and spine surgeries, complex global myofascial pain syndrome, recurrent spinal stenosis, multiple sclerosis, mechanical thoracolumbar instability, admitted for surgical intervention and per notes completed: 1) inspection fusion mass (c-spine), 2) T1-3 laminectomies, 3) C7-T4 in situ fusion, 4) Inspection fusion mass (thoracolumbar spine), 5) posterior instrumentation T8-S1, 6) posteroir arthrodesis T8-S1, 7) bone allograft, 8) bone autograft, 9) complex wound closure (60cm). 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 Complaints of pain and pain mgmt has been consulted. Extensive conversation regarding her MS history which dates back to >10 years and reports previously on BetaSeron but felt no difference. States last MRI brain was 1 year ago, offered repeat which patient would like to defer and reports prior imaging stable and states she will not be able to stay flat and tolerate procedure. She does not want to start on MS meds and would like to focus on spinal mgmt at this time. As outpatient, would advise MRI brain with and without contrast to start with. Was being plaaned for aguilar slide bilterally for feet for 09/16but spiked fever and therefore procedure put on hold. This morning discussed with the ICU nurse and no fevers overnight and afebrile this morning. Patient interactive with nurse and looking at phone, remains on COMMERCIAL ESTIMATOR pump for pain medication Active Medications Acetaminophen (Ofirmev Injection -) 1,000 mg IVPB Q6H PRN PRN Reason: fever or pain Last Admin: 09/16/19 22:11 Dose: 1,000 mg Amitriptyline HCl (Elavil -) 100 mg PO HS ARNIE Last Admin: 09/16/19 21:51 Dose: 100 mg Dexamethasone Sodium Phosphate (Decadron Injection -) 4 mg IVPUSH ONCE PRN PRN Reason: NAUSEA AND/OR VOMITING Diphenhydramine HCl (Benadryl -) 50 mg PO BID ARNIE Last Admin: 09/16/19 21:51 Dose: 50 mg Gabapentin (Neurontin -) 600 mg PO TID ARNIE Last Admin: 09/17/19 05:51 Dose: 600 mg Hydromorphone HCl (Hydromorphone 10 Mg/50 Ml-Ns) 10 mg COMMERCIAL ESTIMATOR COMMERCIAL ESTIMATOR ARNIE; Protocol Stop: 09/19/19 19:57 Last Admin: 09/17/19 07:52 Dose: 10 mg Ketorolac Tromethamine (Toradol Injection -) 30 mg IVPUSH Q8H-IV ARNIE Stop: 09/17/19 09:59 Last Admin: 09/17/19 01:28 Dose: 30 mg Lorazepam (Ativan Injection -) 2 mg IVPUSH Q6H PRN PRN Reason: MUSCLE SPASMS Last Admin: 09/16/19 19:46 Dose: 2 mg Mupirocin (Bactroban 2% Ointment -) 1 applic TP BID ARNIE Last Admin: 09/16/19 21:58 Dose: 1 applic Ondansetron HCl (Zofran Injection) 4 mg IVPUSH Q6H PRN PRN Reason: NAUSEA AND/OR VOMITING Last Admin: 09/13/19 20:27 Dose: 4 mg Ondansetron HCl (Zofran Injection) 4 mg IVPUSH Q4H PRN PRN Reason: NAUSEA AND/OR VOMITING Promethazine HCl (Phenergan Injection -) 12.5 mg IVPB Q6H PRN PRN Reason: NAUSEA AND/OR VOMITING PHYSICAL EXAMINATION Vital Signs Period Temp Pulse Resp BP Sys/Gallagher Pulse Ox Last 24 Hr 98 F-100.1 F 77-105 13-19 88-136/52-97 94-96 GENERAL: Awake, alert, and fully oriented, in no acute distress. HEAD: Normal with no signs of trauma. EYES: Pupils equal, round and reactive to light, extraocular movements intact, sclera anicteric, conjunctiva clear. No lid lag. EARS, NOSE, THROAT: Ears normal, nares patent, oropharynx clear without exudates. Moist mucous membranes. NECK: Normal range of motion, supple without lymphadenopathy, JVD, or masses. LUNGS: Breath sounds equal, clear to auscultation bilaterally. No wheezes, and no crackles. No accessory muscle use. HEART: Regular rate and rhythm, normal S1 and S2 without murmur, rub or gallop. ABDOMEN: Soft, nontender, not distended, normoactive bowel sounds, no guarding, no rebound, no masses. No hepatomegaly or splenomegaly. MUSCULOSKELETAL: Normal range of motion at all joints. No bony deformities or tenderness. No CVA tenderness. UPPER EXTREMITIES: 2+ pulses, warm, well-perfused. No cyanosis. No clubbing. Cap refill <2 seconds. No peripheral edema. LOWER EXTREMITIES: 2+ pulses, warm, well-perfused. No calf tenderness. No peripheral edema. NEUROLOGICAL: Cranial nerves II-XII intact. Normal speech. Normal gait. PSYCHIATRIC: Cooperative. Good eye contact. Appropriate mood and affect. SKIN: Warm, dry, normal turgor, no rashes or lesions noted. CBCD WBC 8.9 K/mm3 (4.0-10.0) 09/17/19 06:00 RBC 2.55 M/mm3 (3.60-5.2) L 09/17/19 06:00 Hgb 7.8 GM/dL (10.7-15.3) L 09/17/19 06:00 Hct 23.2 % (32.4-45.2) L 09/17/19 06:00 MCV 91.3 fl (80-96) 09/17/19 06:00 MCHC 33.4 g/dl (32.0-36.0) 09/17/19 06:00 RDW 14.7 % (11.6-15.6) 09/17/19 06:00 Plt Count 368 K/MM3 (134-434) 09/17/19 06:00 MPV 7.6 fl (7.5-11.1) 09/17/19 06:00 CMP Sodium 143 mmol/L (136-145) 09/17/19 06:00 Potassium 4.2 mmol/L (3.5-5.1) 09/17/19 06:00 Chloride 109 mmol/L (98-107) H 09/17/19 06:00 Carbon Dioxide 29 mmol/L (21-32) 09/17/19 06:00 Anion Gap 5 MMOL/L (8-16) L 09/17/19 06:00 BUN 8.9 mg/dL (7-18) 09/17/19 06:00 Creatinine 0.4 mg/dL (0.55-1.3) L 09/17/19 06:00 Random Glucose 86 mg/dL (74-106) 09/17/19 06:00 Calcium 7.9 mg/dL (8.5-10.1) L 09/17/19 06:00 Total Bilirubin 0.6 mg/dL (0.2-1) 09/17/19 06:00 AST 33 U/L (15-37) 09/17/19 06:00 ALT 32 U/L (13-61) 09/17/19 06:00 Alkaline Phosphatase 216 U/L (45-117) H 09/17/19 06:00 Total Protein 5.0 g/dl (6.4-8.2) L 09/17/19 06:00 Albumin 1.8 g/dl (3.4-5.0) L 09/17/19 06:00 ASSESSMENT/PLAN: 59 y/o female with hx of multiple (~30) back and spine surgeries, complex global myofascial pain syndrome, recurrent spinal stenosis, multiple sclerosis, mechanical thoracolumbar instability, POD #0 s/p 1) inspection fusion mass (c- spine), 2) T1-3 laminectomies, 3) C7-T4 in situ fusion, 4) Inspection fusion mass (thoracolumbar spine), 5) posterior instrumentation T8-S1, 6) posteroir arthrodesis T8-S1, 7) bone allograft, 8) bone autograft, 9) complex wound closure (60cm). 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 Complaints of pain and pain mgmt has been consulted. Extensive conversation regarding her MS history which dates back to > 10 years and reports previously on BetaSeron but felt no difference. States last MRI brain was 1 year ago, offered repeat which patient would like to defer and reports prior imaging stable and states she will not be able to stay flat and tolerate procedure. She does not want to start on MS meds and would like to focus on spinal mgmt at this time. As outpatient, would advise MRI brain with and without contrast to start with. Follow up pain mgmt, pReviewed note from Ortho, was being plaaned for aguilar slide bilterally for feet for this morning, discussed with nurse who indicated the patient had spiked fever overnight and therefore procedure is on hold for now. Reviewed notes from the weekend and no significant neurologic changes although continues to appear and complaining of pain. Continued medical optimization recommended. Infectious workup in place, patient reportedly had blood cultures sent off her nurse, continue monitor febrile status, antibiotics as per primary. Aguilar's procedure plan as per Ortho. This morning discussed with the ICU nurse and no fevers overnight and afebrile this morning. Patient interactive with nurse and looking at phone, remains on COMMERCIAL ESTIMATOR pump for pain medication. Critical care time 35 mins.
--- NOTE | 2019-09-17 09:35 | PN ---
Physical Exam: SUBJECTIVE: Patient seen and examined. No acute events overnight. OBJECTIVE: Vital Signs Period Temp Pulse Resp BP Sys/Gallagher Pulse Ox Last 24 Hr 98 F-100.1 F 77-105 13-19 88-136/52-97 92-96 GENERAL: The patient is awake, alert, and fully oriented, in mild distress HEAD: Normal with no signs of trauma. EYES: PERRL, extraocular movements intact ENT: Ears normal, nares patent, dry mucous membranes. NECK: Trachea midline LUNGS: Breath sounds equal, clear to auscultation bilaterally, no accessory muscle use. HEART: Regular rate and rhythm, no murmur ABDOMEN: Soft, nontender, nondistended, normoactive bowel sounds BACK: pinpoint area of erythema on left upper back just lateral to bandage EXTREMITIES: Warm, well-perfused, no edema. Can actively move both feet L>R. NEUROLOGICAL: Normal speech SKIN: Warm, dry, normal turgor Laboratory Results - last 24 hr 09/17/19 09/17/19 06:00 06:00 WBC 8.9 RBC 2.55 L Hgb 7.8 L Hct 23.2 L MCV 91.3 MCH 30.5 MCHC 33.4 RDW 14.7 Plt Count 368 MPV 7.6 Absolute Neuts (auto) 6.5 Neutrophils % 72.7 Lymphocytes % 14.1 Monocytes % 6.0 Eosinophils % 6.8 H Basophils % 0.4 Nucleated RBC % 0 Sodium 143 Potassium 4.2 Chloride 109 H Carbon Dioxide 29 Anion Gap 5 L BUN 8.9 Creatinine 0.4 L Est GFR (CKD-EPI)AfAm 134.00 Est GFR (CKD-EPI)NonAf 115.62 Random Glucose 86 Calcium 7.9 L Total Bilirubin 0.6 AST 33 ALT 32 Alkaline Phosphatase 216 H Total Protein 5.0 L Albumin 1.8 L Active Medications Acetaminophen (Ofirmev Injection -) 1,000 mg IVPB Q6H PRN PRN Reason: fever or pain Last Admin: 09/16/19 22:11 Dose: 1,000 mg Amitriptyline HCl (Elavil -) 100 mg PO HS ARNIE Last Admin: 09/16/19 21:51 Dose: 100 mg Dexamethasone Sodium Phosphate (Decadron Injection -) 4 mg IVPUSH ONCE PRN PRN Reason: NAUSEA AND/OR VOMITING Diphenhydramine HCl (Benadryl -) 50 mg PO BID [facility] Last Admin: 09/16/19 21:51 Dose: 50 mg Gabapentin (Neurontin -) 600 mg PO TID [facility] Last Admin: 09/17/19 05:51 Dose: 600 mg Hydromorphone HCl (Hydromorphone 10 Mg/50 Ml-Ns) 10 mg SENIOR ORACLE DEVELOPER SENIOR ORACLE DEVELOPER ARNIE; Protocol Stop: 09/19/19 19:57 Last Admin: 09/17/19 07:52 Dose: 10 mg Ketorolac Tromethamine (Toradol Injection -) 30 mg IVPUSH Q8H-IV ARNIE Stop: 09/17/19 09:59 Last Admin: 09/17/19 01:28 Dose: 30 mg Lorazepam (Ativan Injection -) 2 mg IVPUSH Q6H PRN PRN Reason: MUSCLE SPASMS Last Admin: 09/16/19 19:46 Dose: 2 mg Mupirocin (Bactroban 2% Ointment -) 1 applic TP BID [facility] Last Admin: 09/16/19 21:58 Dose: 1 applic Ondansetron HCl (Zofran Injection) 4 mg IVPUSH Q6H PRN PRN Reason: NAUSEA AND/OR VOMITING Last Admin: 09/13/19 20:27 Dose: 4 mg Ondansetron HCl (Zofran Injection) 4 mg IVPUSH Q4H PRN PRN Reason: NAUSEA AND/OR VOMITING Promethazine HCl (Phenergan Injection -) 12.5 mg IVPB Q6H PRN PRN Reason: NAUSEA AND/OR VOMITING ASSESSMENT/PLAN: Ms. Tafoya is a 59y/o female with multiple (~30) back and spine surgeries, complex global myofascial pain syndrome, recurrent spinal stenosis, multiple sclerosis, and mechanical thoracolumbar instability who presents for spinal surgery. This includes inspection fusion mass (c-spine), T1-3 laminectomies, C7- T4 in situ fusion, inspection fusion mass (thoracolumbar spine), posterior instrumentation T8-S1, posterior arthrodesis T8-S1, bone allograft, bone autograft, and complex wound closure (60cm). #Complex spinal pain 2/2 mechanical instability and myofascial decompensation s/ p multi-level spinal intervention, POD 7. Planned Bakers Slide procedure with ortho. Surgery deferred until Wednesday due to fever overnight. Will cont to monitor Pain management Scheduled IV tylenol Dilaudid SENIOR ORACLE DEVELOPER pump Gabapentin 300mg TID Ativan 2mg Q6H PRN muscle spasms Zofran PRN PT eval daily. No bending, lifting (>5 lbs), or twisting for 9-12 months, f/ u 7-10 days after rehab d/c #Normocytic anemia Recent surgery, no sign of overt bleeding Hgb: 8.3, down from 9.3 Cont to monitor closely #Hypomagnesemia M.7 today, repleted with 1gm IV Cont to monitor #FEN Monitor Mg and Hb Sodium controlled diet #Dispo: Surgery on Tuesday 09/18 Monitor in ICU SN[facility] ATTENDING PHYSICIAN STATEMENT I saw and evaluated the patient. I reviewed the resident's note and discussed the case with the resident. I agree with the resident's findings and plan as documented. SUBJECTIVE: OBJECTIVE: ASSESSMENT AND PLAN:
[2019-09-17] MEDS: MUPIROCIN 2% TOPICAL OINTMENT 22 GM TUBE TP SCH ×2 (09:41→21:42)
[2019-09-17] MEDS: diphenhydrAMINE HCL 25 MG CAPSULE (FP) PO SCH ×2 (10:26→21:42)
[2019-09-17 11:40] LABS: HEMATOCRIT 23.4 % (32.4-45.2); HEMOGLOBIN 7.6 GM/dL (10.7-15.3); MCH 29.8 pg (25.7-33.7); MCHC 32.3 g/dl (32.0-36.0); MEAN PLT VOLUME 7.5 fl (7.5-11.1); PLATELET COUNT 365 K/MM3 (134-434); RBC 2.54 M/mm3 (3.60-5.2); RDW 14.4 % (11.6-15.6); WHITE BLOOD COUNT 8.5 K/mm3 (4.0-10.0)
--- NOTE | 2019-09-17 12:11 | PN ---
Teaching Attending Note Name of Resident: Meir Harmon ATTENDING PHYSICIAN STATEMENT I saw and evaluated the patient. I reviewed the resident's note and discussed the case with the resident. I agree with the resident's findings and plan as documented. SUBJECTIVE: Patient seen and examined in the ICU. Still with significant pain, but slightly better than yesterday. For possible return to OR today or tomorrow. Overall no change in exam. No CP or SOB. OBJECTIVE: Intake & Output 09/14/19 09/15/19 09/16/19 09/17/19 23:59 23:59 23:59 23:59 Intake Total 740 990 860 350 Output Total 2463 1500 1100 1200 Balance -1723 -510 -240 -850 Weight 202 lb 208 lb 4 oz 210 lb 8 oz Last Vital Signs Temp Pulse Resp BP Pulse Ox 98.1 F 91 H 16 88/53 L 92 L 09/17/19 10:00 09/17/19 10:00 09/17/19 10:00 09/17/19 10:00 09/17/19 10:00 Active Medications Acetaminophen (Ofirmev Injection -) 1,000 mg IVPB Q6H PRN PRN Reason: fever or pain Last Admin: 09/16/19 22:11 Dose: 1,000 mg Amitriptyline HCl (Elavil -) 100 mg PO HS [facility] Last Admin: 09/16/19 21:51 Dose: 100 mg Dexamethasone Sodium Phosphate (Decadron Injection -) 4 mg IVPUSH ONCE PRN PRN Reason: NAUSEA AND/OR VOMITING Diphenhydramine HCl (Benadryl -) 50 mg PO BID [facility] Last Admin: 09/17/19 10:26 Dose: 50 mg Gabapentin (Neurontin -) 600 mg PO TID [facility] Last Admin: 09/17/19 05:51 Dose: 600 mg Hydromorphone HCl (Hydromorphone 10 Mg/50 Ml-Ns) 10 mg FILTER BED PLACER FILTER BED PLACER [facility]; Protocol Stop: 09/19/19 19:57 Last Admin: 09/17/19 07:52 Dose: 10 mg Mupirocin (Bactroban 2% Ointment -) 1 applic TP BID [facility] Last Admin: 09/17/19 09:41 Dose: 1 applic Ondansetron HCl (Zofran Injection) 4 mg IVPUSH Q6H PRN PRN Reason: NAUSEA AND/OR VOMITING Last Admin: 09/13/19 20:27 Dose: 4 mg Ondansetron HCl (Zofran Injection) 4 mg IVPUSH Q4H PRN PRN Reason: NAUSEA AND/OR VOMITING Promethazine HCl (Phenergan Injection -) 12.5 mg IVPB Q6H PRN PRN Reason: NAUSEA AND/OR VOMITING Gen: Awake and alert, uncomfortable due to pain Heart: RRR Lung: decreased breath sounds at the bases Abd: soft, nontender Ext: no edema BLOOD BANK CALENDAR CONTROL CLERK: Awake and alert, LLE 0/5 Laboratory Results - last 24 hr 09/17/19 09/17/19 09/17/19 06:00 06:00 11:10 WBC 8.9 8.5 RBC 2.55 L 2.54 L Hgb 7.8 L 7.6 L Hct 23.2 L 23.4 L MCV 91.3 92.0 MCH 30.5 29.8 MCHC 33.4 32.3 RDW 14.7 14.4 Plt Count 368 365 MPV 7.6 7.5 Absolute Neuts (auto) 6.5 Neutrophils % 72.7 Lymphocytes % 14.1 Monocytes % 6.0 Eosinophils % 6.8 H Basophils % 0.4 Nucleated RBC % 0 Sodium 143 Potassium 4.2 Chloride 109 H Carbon Dioxide 29 Anion Gap 5 L BUN 8.9 Creatinine 0.4 L Est GFR (CKD-EPI)AfAm 134.00 Est GFR (CKD-EPI)NonAf 115.62 Random Glucose 86 Calcium 7.9 L Total Bilirubin 0.6 AST 33 ALT 32 Alkaline Phosphatase 216 H Total Protein 5.0 L Albumin 1.8 L ASSESSMENT AND PLAN: POD #8: 1. Inspection fusion mass (cervical spine). 2. T1, T2, T3 laminectomies. 3. C7-T4 in situ fusion. 4. Inspection fusion mass ( thoracolumbar spine). 5. Posterior instrumentation T8-S1. 6. Posterior arthrodesis T8-S1. 7. Bone allograft. 8. Bone autograft. 9. Complex wound closure (60cm) Progressive Kyphoscoliosis - pain control - incentive spirometry - IVF - PO as tolerated - antiemetics - monitor drain output - activity/diet/DVT prophylaxis per surgery - For return to OR Dr Garza
[2019-09-17 12:14] LABS: BLOOD UREA NITROGEN 10.5 mg/dL (7-18); CALCIUM 7.6 mg/dL (8.5-10.1); CREATININE 0.3 mg/dL (0.55-1.3); POTASSIUM 4.2 mmol/L (3.5-5.1)
[2019-09-17] MEDS ORDERED: BENZOCAINE/MENTH/CETYLPYRD CL 1 EACH LOZENGE MM PRN (12:19)
--- NOTE | 2019-09-17 12:27 | PN ---
Progress Note (short form) - Note Progress Note: Case d/w Dr Shayan Marina. Pt planned for achilles lengthening procedure with Dr Marina. Case cancelled for today as pt is hypoxic, currently on 10 liters O2, bp systolic in high 70s/low 80s. Last fever 100.1 yesterday afternoon. Continue medical/ID management PT should attempt to get pt oob and standing later this afternoon T&S and labs in AM NPO after midnight If pt is stable plan for case to proceed tomorrow afternoon
[2019-09-17] MEDS ORDERED: SODIUM CHLORIDE 1,000 ML IV SCH (12:30)
--- NOTE | 2019-09-17 12:30 | PN ---
Physical Exam: SUBJECTIVE: Patient seen and examined. Patient still complaining of back pain but improving compared to past pain. Patient is anxious to get her next procedure done and to get to custodial for rehab. No acute events overnight. OBJECTIVE: Vital Signs Period Temp Pulse Resp BP Sys/Gallagher Pulse Ox Last 24 Hr 98 F-100.1 F 77-105 15-19 88-125/52-91 92-96 GENERAL: mild distress due pain. The patient is awake, alert, and fully oriented. HEAD: Normal with no signs of trauma. EYES: PERRL, EOMI ENT: nares patent, oropharynx clear without exudates, moist mucous membranes. NECK: Trachea midline, full range of motion, supple. LUNGS: Breath sounds equal, clear to auscultation bilaterally, no wheezes, no crackles, no accessory muscle use. HEART: Regular rate and rhythm, S1, S2 without murmur, rub or gallop. ABDOMEN: distended. Soft, nontender, normoactive bowel sounds, no guarding, no rebound, no hepatosplenomegaly, no masses. EXTREMITIES: 2+ pulses, warm, well-perfused, no edema. NEUROLOGICAL: Decreased sensation of right arm, leg. Cranial nerves II through XII grossly intact. Normal speech, gait not observed. PSYCH: Normal mood, normal affect. SKIN: Warm, dry, normal turgor, no rashes or lesions noted Laboratory Results - last 24 hr 09/17/19 09/17/19 09/17/19 06:00 06:00 11:10 WBC 8.9 8.5 RBC 2.55 L 2.54 L Hgb 7.8 L 7.6 L Hct 23.2 L 23.4 L MCV 91.3 92.0 MCH 30.5 29.8 MCHC 33.4 32.3 RDW 14.7 14.4 Plt Count 368 365 MPV 7.6 7.5 Absolute Neuts (auto) 6.5 Neutrophils % 72.7 Lymphocytes % 14.1 Monocytes % 6.0 Eosinophils % 6.8 H Basophils % 0.4 Nucleated RBC % 0 Sodium 143 Potassium 4.2 Chloride 109 H Carbon Dioxide 29 Anion Gap 5 L BUN 8.9 Creatinine 0.4 L Est GFR (CKD-EPI)AfAm 134.00 Est GFR (CKD-EPI)NonAf 115.62 Random Glucose 86 Calcium 7.9 L Total Bilirubin 0.6 AST 33 ALT 32 Alkaline Phosphatase 216 H Total Protein 5.0 L Albumin 1.8 L 09/17/19 11:10 WBC RBC Hgb Hct MCV MCH MCHC RDW Plt Count MPV Absolute Neuts (auto) Neutrophils % Lymphocytes % Monocytes % Eosinophils % Basophils % Nucleated RBC % Sodium 142 Potassium 4.2 Chloride 108 H Carbon Dioxide 29 Anion Gap 5 L BUN 10.5 Creatinine 0.3 L Est GFR (CKD-EPI)AfAm 147.31 Est GFR (CKD-EPI)NonAf 127.10 Random Glucose 107 H Calcium 7.6 L Total Bilirubin AST ALT Alkaline Phosphatase Total Protein Albumin Active Medications Generic Name Dose Route Start Last Admin Trade Name Freq PRN Reason Stop Dose Admin Acetaminophen 1,000 mg 09/15/19 17:45 09/16/19 22:11 Ofirmev Injection - IVPB 1,000 mg Q6H PRN Administration fever or pain Amitriptyline HCl 100 mg 09/10/19 16:26 09/16/19 21:51 Elavil - PO 100 mg HS ARNIE Administration Benzocaine/Menthol 1 each 09/17/19 12:19 Cepacol Lozenge - MM PRN PRN SORE THROAT Dexamethasone Sodium Phosphate 4 mg 09/11/19 18:40 Decadron Injection - IVPUSH ONCE PRN NAUSEA AND/OR VOMITING Diphenhydramine HCl 50 mg 09/15/19 10:00 09/17/19 10:26 Benadryl - PO 50 mg BID ARNIE Administration Gabapentin 600 mg 09/13/19 14:00 09/17/19 05:51 Neurontin - PO 600 mg TID ARNIE Administration Hydromorphone HCl 10 mg 09/12/19 20:00 09/17/19 07:52 Hydromorphone 10 Mg/50 Ml-Ns SENIOR TECHNICAL BUSINESS ANALYST 09/19/19 19:57 10 mg SENIOR TECHNICAL BUSINESS ANALYST ARNIE Administration Protocol Sodium Chloride 1,000 mls @ 75 mls/hr 09/17/19 12:30 Normal Saline - IV ASDIR ARNIE Mupirocin 1 applic 09/15/19 10:45 09/17/19 09:41 Bactroban 2% Ointment - TP 1 applic BID ARNIE Administration Ondansetron HCl 4 mg 09/09/19 16:47 09/13/19 20:27 Zofran Injection IVPUSH 4 mg Q6H PRN Administration NAUSEA AND/OR VOMITING Ondansetron HCl 4 mg 09/11/19 18:40 Zofran Injection IVPUSH Q4H PRN NAUSEA AND/OR VOMITING Promethazine HCl 12.5 mg 09/11/19 18:43 Phenergan Injection - IVPB Q6H PRN NAUSEA AND/OR VOMITING ASSESSMENT/PLAN: 59 yo female with hx of multiple (~30) back and spine surgeries, complex global myofascial pain syndrome, recurrent spinal stenosis, multiple sclerosis, mechanical thoracolumbar instability, POD #8 s/p 1) inspection fusion mass (c- spine), 2) T1-3 laminectomies, 3) C7-T4 in situ fusion, 4) Inspection fusion mass (thoracolumbar spine), 5) posterior instrumentation T8-S1, 6) posteroir arthrodesis T8-S1, 7) bone allograft, 8) bone autograft, 9) complex wound closure (60cm). Patient is pending Bakers Slide procedure tomorrow. #Neuro - Lorazepam 2mg IV Q6H PRN - Benadryl 50mg PO BID - Amytriptyline 100mg PO HS - Pain: Hydromorphone 10mg SENIOR TECHNICAL BUSINESS ANALYST and Toradol 30mg IV Q8H - Nasuea: Promethazine 12.5mg IV Q6H PRN and Zofran 4mg IV Q4H #Ortho - Aguilar's slide procedure for 09/18 as long as patient continues to be afebrile. - Dilaudid SENIOR TECHNICAL BUSINESS ANALYST pump - Gabapentin 600mg PO TID - Zofran PRN - PT eval daily. No bending, lifting (>5 lbs), or twisting for 9-12 months, f/u 7-10 days after rehab d/c #ID - Patient had fever again today, 101.5F at 1753. Likely due to pneumonia but not certain. - WBC at 8.5. - Started on Zosyn Q8hr. - F/u blood cx, UA. - Urine cx negative - Tylenol 1000mg IV Q6H - ID consulted #GI - Alk Phos 165 -> 216 - KUB showed moderate stool in colon. Miralax started BID. #Renal - BUN/Cr 8.9/0.4 #Heme - Hg/Hct 8.3/24.0 -> 7.8/23.2 #FEN - Ca 7.9. Corrected Ca at 9.7. - Cholesterol controlled diet - D5NS @ 75mls/hr #Dispo: - Bakers Slide procedure scheduled for 09/18 however, likely will be postponed in light of fever again. - Continue monitoring in ICU Visit type - Emergency Visit Emergency Visit: No - New Patient This patient is new to me today: No - Critical Care Critical Care patient: Yes Total Critical Care Time (in minutes): 36 Critical Care Statement: The care of this patient involved high complexity decision making to prevent further life threatening deterioration of the patient 's condition and/or to evaluate & treat vital organ system(s) failure or risk of failure. - Discharge Referral Referred to [facility] No ATTENDING PHYSICIAN STATEMENT I saw and evaluated the patient. I reviewed the resident's note and discussed the case with the resident. I agree with the resident's findings and plan as documented. SUBJECTIVE: OBJECTIVE: ASSESSMENT AND PLAN:
--- NOTE | 2019-09-17 15:32 | PN ---
Physical Exam: SUBJECTIVE: Patient seen and examined. No acute events overnight. OBJECTIVE: Vital Signs Period Temp Pulse Resp BP Sys/Gallagher Pulse Ox Last 24 Hr 98 F-100.1 F 77-105 15-19 88-125/52-91 92-96 GENERAL: The patient is awake, alert, and fully oriented, in mild distress HEAD: Normal with no signs of trauma. EYES: PERRL, extraocular movements intact ENT: Ears normal, nares patent, dry mucous membranes. NECK: Trachea midline LUNGS: Breath sounds equal, clear to auscultation bilaterally, no accessory muscle use. HEART: Regular rate and rhythm, no murmur ABDOMEN: Soft, nontender, nondistended, normoactive bowel sounds BACK: pinpoint area of erythema on left upper back just lateral to bandage EXTREMITIES: Warm, well-perfused, no edema. Can actively move both feet L>R. NEUROLOGICAL: Normal speech SKIN: Warm, dry, normal turgor Laboratory Results - last 24 hr CBC, BMP 09/17/19 11:10 09/17/19 11:10 Active Medications Acetaminophen (Ofirmev Injection -) 1,000 mg IVPB Q6H PRN PRN Reason: fever or pain Last Admin: 09/16/19 22:11 Dose: 1,000 mg Amitriptyline HCl (Elavil -) 100 mg PO HS [facility] Last Admin: 09/16/19 21:51 Dose: 100 mg Benzocaine/Menthol (Cepacol Lozenge -) 1 each MM PRN PRN PRN Reason: SORE THROAT Dexamethasone Sodium Phosphate (Decadron Injection -) 4 mg IVPUSH ONCE PRN PRN Reason: NAUSEA AND/OR VOMITING Diphenhydramine HCl (Benadryl -) 50 mg PO BID [facility] Last Admin: 09/17/19 10:26 Dose: 50 mg Gabapentin (Neurontin -) 600 mg PO TID [facility] Last Admin: 09/17/19 13:53 Dose: 600 mg Hydromorphone HCl (Hydromorphone 10 Mg/50 Ml-Ns) 10 mg BOXING INSPECTOR BOXING INSPECTOR [facility]; Protocol Stop: 09/19/19 19:57 Last Admin: 09/17/19 07:52 Dose: 10 mg Sodium Chloride (Normal Saline -) 1,000 mls @ 75 mls/hr IV ASDIR [facility] Last Admin: 09/17/19 12:45 Dose: 75 mls/hr Mupirocin (Bactroban 2% Ointment -) 1 applic TP BID ARNIE Last Admin: 09/17/19 09:41 Dose: 1 applic Ondansetron HCl (Zofran Injection) 4 mg IVPUSH Q6H PRN PRN Reason: NAUSEA AND/OR VOMITING Last Admin: 09/13/19 20:27 Dose: 4 mg Ondansetron HCl (Zofran Injection) 4 mg IVPUSH Q4H PRN PRN Reason: NAUSEA AND/OR VOMITING Polyethylene Glycol (Miralax (For Daily Use) -) 17 gm PO BID ARNIE Promethazine HCl (Phenergan Injection -) 12.5 mg IVPB Q6H PRN PRN Reason: NAUSEA AND/OR VOMITING ASSESSMENT/PLAN: Ms. Tafoya is a 59y/o female with multiple (~30) back and spine surgeries, complex global myofascial pain syndrome, recurrent spinal stenosis, multiple sclerosis, and mechanical thoracolumbar instability who presents for spinal surgery. This includes inspection fusion mass (c-spine), T1-3 laminectomies, C7- T4 in situ fusion, inspection fusion mass (thoracolumbar spine), posterior instrumentation T8-S1, posterior arthrodesis T8-S1, bone allograft, bone autograft, and complex wound closure (60cm). #Complex spinal pain 2/2 mechanical instability and myofascial decompensation s/ p multi-level spinal intervention, POD 7. Planned achilles lengthening procedure with ortho (Shein). Surgery deferred until Monday due to fever. Will cont to monitor. Pain management Scheduled IV tylenol Dilaudid BOXING INSPECTOR pump Gabapentin 300mg TID Ativan 2mg Q6H PRN muscle spasms Zofran PRN PT eval daily. No bending, lifting (>5 lbs), or twisting for 9-12 months, f/ u 7-10 days after rehab d/c #Bilateral lung rales w/hypoxia Pt in mid 80s on RA, now satting in 90s at 5L NC CXR: interstitial fluid BL Incentive spirometry Likely 2/2 to atelectasis as pt has been mostly bed-bound #Normocytic anemia Recent surgery, no sign of overt bleeding Hgb: 8.3, down from 9.3 Cont to monitor closely #Hypomagnesemia M.7 yesterday, repleted with 1gm IV Cont to monitor daily #FEN Monitor Mg and Hb Sodium controlled diet #Dispo: Surgery on Tuesday 09/18 Monitor in ICU SNF Visit type - Emergency Visit Emergency Visit: No - New Patient This patient is new to me today: No - Critical Care Critical Care patient: Yes Total Critical Care Time (in minutes): 45 Critical Care Statement: The care of this patient involved high complexity decision making to prevent further life threatening deterioration of the patient 's condition and/or to evaluate & treat vital organ system(s) failure or risk of failure. ATTENDING PHYSICIAN STATEMENT I saw and evaluated the patient. I reviewed the resident's note and discussed the case with the resident. I agree with the resident's findings and plan as documented. SUBJECTIVE: OBJECTIVE: ASSESSMENT AND PLAN:
[2019-09-17] MEDS ORDERED: FUROSEMIDE 100 MG/10 ML INJECTABLE VIAL IVPB ONE (16:19)
[2019-09-17] MEDS: ACETAMINOPHEN 1000 MG/100 ML VIAL (NON FORMULARY) IVPB PRN (17:54)
[2019-09-17] MEDS: LORazepam 2 MG/ML SDV VIAL IVPUSH PRN (17:55)
--- NOTE | 2019-09-17 18:25 | PN ---
Teaching Attending Note Name of Resident: Chanda Graham ATTENDING PHYSICIAN STATEMENT I saw and evaluated the patient. I reviewed the resident's note and discussed the case with the resident. I agree with the resident's findings and plan as documented. SUBJECTIVE: Ongoing back and LE pain. Complains of SOB. no cough/sputum. OBJECTIVE: Febrile. Tachycardic. Hemodynamically Stable. Last Vital Signs Temp Pulse Resp BP Pulse Ox 101.5 F H 112 H 15 110/59 L 94 L 09/17/19 17:43 09/17/19 17:43 09/17/19 17:43 09/17/19 17:43 09/17/19 18:00 HEENT - Atraumatic, Normocephalic. Heart - S1, S2, tachy Lungs - bibasal crackles Abdomen - Soft, non-tender. Bowel Sounds normal. Extremities - no edema, no calf tenderness. Laboratory Results - last 24 hr 09/17/19 09/17/19 09/17/19 06:00 06:00 11:10 WBC 8.9 8.5 RBC 2.55 L 2.54 L Hgb 7.8 L 7.6 L Hct 23.2 L 23.4 L MCV 91.3 92.0 MCH 30.5 29.8 MCHC 33.4 32.3 RDW 14.7 14.4 Plt Count 368 365 MPV 7.6 7.5 Absolute Neuts (auto) 6.5 Neutrophils % 72.7 Lymphocytes % 14.1 Monocytes % 6.0 Eosinophils % 6.8 H Basophils % 0.4 Nucleated RBC % 0 Sodium 143 Potassium 4.2 Chloride 109 H Carbon Dioxide 29 Anion Gap 5 L BUN 8.9 Creatinine 0.4 L Est GFR (CKD-EPI)AfAm 134.00 Est GFR (CKD-EPI)NonAf 115.62 Random Glucose 86 Calcium 7.9 L Total Bilirubin 0.6 AST 33 ALT 32 Alkaline Phosphatase 216 H Total Protein 5.0 L Albumin 1.8 L Blood Type Antibody Screen 09/17/19 09/17/19 11:10 14:00 WBC RBC Hgb Hct MCV MCH MCHC RDW Plt Count MPV Absolute Neuts (auto) Neutrophils % Lymphocytes % Monocytes % Eosinophils % Basophils % Nucleated RBC % Sodium 142 Potassium 4.2 Chloride 108 H Carbon Dioxide 29 Anion Gap 5 L BUN 10.5 Creatinine 0.3 L Est GFR (CKD-EPI)AfAm 147.31 Est GFR (CKD-EPI)NonAf 127.10 Random Glucose 107 H Calcium 7.6 L Total Bilirubin AST ALT Alkaline Phosphatase Total Protein Albumin Blood Type A POSITIVE Antibody Screen Negative Current Medications Generic Name Dose Route Start Last Admin Trade Name Freq PRN Reason Stop Dose Admin Acetaminophen 1,000 mg 09/15/19 17:45 09/17/19 17:54 Ofirmev Injection - IVPB 1,000 mg Q6H PRN Administration fever or pain Amitriptyline HCl 100 mg 09/10/19 16:26 09/16/19 21:51 Elavil - PO 100 mg HS ARNIE Administration Benzocaine/Menthol 1 each 09/17/19 12:19 09/17/19 17:36 Cepacol Lozenge - MM 1 each PRN PRN Administration SORE THROAT Dexamethasone Sodium Phosphate 4 mg 09/11/19 18:40 Decadron Injection - IVPUSH ONCE PRN NAUSEA AND/OR VOMITING Diphenhydramine HCl 50 mg 09/15/19 10:00 09/17/19 10:26 Benadryl - PO 50 mg BID ARNIE Administration Gabapentin 600 mg 09/13/19 14:00 09/17/19 13:53 Neurontin - PO 600 mg TID ARNIE Administration Hydromorphone HCl 10 mg 09/12/19 20:00 09/17/19 07:52 Hydromorphone 10 Mg/50 Ml-Ns LANDSCAPE CREW LEADER 09/19/19 19:57 10 mg LANDSCAPE CREW LEADER ARNIE Administration Protocol Lorazepam 2 mg 09/17/19 16:51 09/17/19 17:55 Ativan Injection - IVPUSH 2 mg Q6H PRN Administration ANXIETY Mupirocin 1 applic 09/15/19 10:45 09/17/19 09:41 Bactroban 2% Ointment - TP 1 applic BID ARNIE Administration Ondansetron HCl 4 mg 09/09/19 16:47 09/13/19 20:27 Zofran Injection IVPUSH 4 mg Q6H PRN Administration NAUSEA AND/OR VOMITING Ondansetron HCl 4 mg 09/11/19 18:40 Zofran Injection IVPUSH Q4H PRN NAUSEA AND/OR VOMITING Polyethylene Glycol 17 gm 09/17/19 22:00 Miralax (For Daily Use) - PO BID ARNIE Promethazine HCl 12.5 mg 09/11/19 18:43 Phenergan Injection - IVPB Q6H PRN NAUSEA AND/OR VOMITING Home Medications Medication Instructions Recorded Amitriptyline HCl [Elavil -] 50 mg PO HS 01/16/19 Oxycodone HCl 60 mg PO Q8H 01/16/19 HYDROmorphone [Dilaudid -] 8 mg PO Q6H PRN 03/04/19 Cyclobenzaprine HCl 1 tab PO TID 03/05/19 LORazepam [Ativan] 2 mg PO TID tablet MDD 6mg 03/11/19 Amitriptyline HCl 100 mg PO TID 09/06/19 Alprazolam [Xanax] 0.5 mg PO BID 09/12/19 Fluoxetine HCl 10 mg PO BID 09/12/19 Prednisone 5 mg PO QID 09/12/19 ASSESSMENT AND PLAN: 59 year old female with history of MS, recurrent lumbar spinal stenosis, s/p multiple back surgeries, complex global myofascial pain syndrome, mechanical thoracolumbar instability, admitted for spine surgery. POD 6 s/p 1. Inspection fusion mass (cervical spine). 2. T1, T2, T3 laminectomies. 3. C7 -T4 in situ fusion. 4. Inspection fusion mass (thoracolumbar spine). 5. Posterior instrumentation T8-S1. 6. Posterior arthrodesis T8-S1. 7. Bone allograft. 8. Bone autograft. 9. Complex wound closure 1. 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 Continue Elavil, Neurontin, Ativan as needed Further management as per Ortho/Aguilar's procedure planned for achilles tendon release. 2. Post-op Fever ? infective in etiology CXR, Blood, Urine Cx ordered. Earlier CXR showed interstitial fluid and patient was given IV lasix for fluid overload. Will monitor respiratory status. 3. Anemia - normocytic s/p spinal surgery. No evidence of ongoing blood loss Will monitor H/H
[2019-09-17] MEDS ORDERED: DEXTROSE 5%-NORMAL SALINE 1,000 ML IV SCH ×2 (20:00)
[2019-09-17] MEDS ORDERED: PIPERACILLIN/TAZOB 3.375 GM 3.375 GM in DEXTROSE 5%-WATER - 50 ML IVPB ONE (21:04)
[2019-09-17] MEDS ORDERED: PT OWN MED DRAWER 7, Y5N ONE (21:35)
[2019-09-17] MEDS ORDERED: PIPERACILLIN/TAZOBACTAM 3.375 GM VIAL IVPB ONE (21:36)
[2019-09-17] MEDS ORDERED: DEXTROSE 5%-WATER - 50 ML IVPB ONE (21:36)
[2019-09-17] MEDS: PIPERACILLIN/TAZOB 3.375 GM 3.375 GM in DEXTROSE 5%-WATER - 50 ML IVPB SCH (21:42)
[2019-09-17] MEDS: AMITRIPTYLINE HCL 25 MG TABLET (FP) PO SCH (21:43)
[2019-09-17 21:50] LABS: EPI CELLS 0.1 /HPF (0-5/HPF); HYALINE CASTS 1 /lpf (0-8); URINE APPEARANCE TURBID; URINE BACTERIA 0.5 /hpf (NEGATIVE); URINE BILIRUBIN NEGATIVE (NEGATIVE); URINE COLOR YELLOW; URINE GLUCOSE (UA) NEGATIVE (NEGATIVE); URINE KETONE NEGATIVE (NEGATIVE); URINE LEUK ESTERASE 3+ (NEGATIVE); URINE NITRITE POSITIVE (NEGATIVE); URINE PROTEIN TRACE (NEGATIVE); URINE RBC 0 /hpf (0-4); URINE WBC 0 /hpf (0-5)
[2019-09-17] MEDS: POLYETHYLENE GLYCOL 3350 119 GM BTL PO SCH (22:06)
[2019-09-18] MEDS ORDERED: DEXTROSE 5%-WATER - 50 ML IVPB ONE ×3 (02:24→17:11)
[2019-09-18] MEDS ORDERED: PIPERACILLIN/TAZOBACTAM 3.375 GM VIAL IVPB ONE ×3 (02:24→17:11)
[2019-09-18] MEDS: PIPERACILLIN/TAZOB 3.375 GM 3.375 GM in DEXTROSE 5%-WATER - 50 ML IVPB SCH ×5 (03:14→17:23)
[2019-09-18] MEDS: GABAPENTIN 300 MG CAPSULE (FP) PO SCH ×3 (05:42→22:25)
[2019-09-18] MEDS ORDERED: PT OWN MED DRAWER 7, Y5N ONE ×2 (06:18→22:24)
[2019-09-18 06:28] LABS: BASO % 0.3 % (0-2.0); EOS % 5.4 % (0-4.5); HEMATOCRIT 23.1 % (32.4-45.2); HEMOGLOBIN 7.8 GM/dL (10.7-15.3); LYMPH % 12.7 % (8-40); MCH 30.4 pg (25.7-33.7); MCHC 33.6 g/dl (32.0-36.0); MEAN CELL VOLUME 90.6 fl (80-96); MEAN PLT VOLUME 7.4 fl (7.5-11.1); MONO % 6.1 % (3.8-10.2); NEUT % 75.5 % (42.8-82.8); PLATELET COUNT 463 K/MM3 (134-434); RBC 2.55 M/mm3 (3.60-5.2); RDW 14.9 % (11.6-15.6); WHITE BLOOD COUNT 10.1 K/mm3 (4.0-10.0)
[2019-09-18 07:09] LABS: ALBUMIN 1.6 g/dl (3.4-5.0); BILIRUBIN,TOTAL 0.5 mg/dL (0.2-1); BLOOD UREA NITROGEN 8.8 mg/dL (7-18); CALCIUM 7.8 mg/dL (8.5-10.1); CREATININE 0.4 mg/dL (0.55-1.3); MAGNESIUM 1.9 mg/dL (1.8-2.4); PHOSPHOROUS 3.6 mg/dL (2.5-4.9); TOT PROT 5.1 g/dl (6.4-8.2)
[2019-09-18] MEDS: LORazepam 2 MG/ML SDV VIAL IVPUSH PRN ×2 (08:27→15:38)
--- NOTE | 2019-09-18 09:20 | PN ---
Progress Note (short form) - Note Progress Note: Case canceled due to continued hypoxia and fevers. Pt and RN aware. Diet reordered. Plan pending improvement in sats D/w attending Dr Marina
[2019-09-18] MEDS: MUPIROCIN 2% TOPICAL OINTMENT 22 GM TUBE TP SCH ×2 (10:37→22:27)
[2019-09-18] MEDS: diphenhydrAMINE HCL 25 MG CAPSULE (FP) PO SCH ×2 (10:38→22:25)
[2019-09-18] MEDS: POLYETHYLENE GLYCOL 3350 119 GM BTL PO SCH ×2 (10:38→22:26)
--- NOTE | 2019-09-18 11:20 | PN ---
Progress Note (short form) - Note Progress Note: ID CONSULT DICTATED FEVER R/O HCAP S/P LAMINECTOMY POD# 9 AWAIT CULTURES CONTINUE EMPIRIC ZOSYN
--- NOTE | 2019-09-18 11:57 | PN ---
Teaching Attending Note Name of Resident: Lucas Vasques ATTENDING PHYSICIAN STATEMENT I saw and evaluated the patient. I reviewed the resident's note and discussed the case with the resident. I agree with the resident's findings and plan as documented. SUBJECTIVE: Pt seen and examined in the ICU. OR postponed due to fever overnight. Denies cough, abdominal pain, diarrhea, dysuria. OBJECTIVE: Vital Signs Period Temp Pulse Resp BP Sys/Gallagher Pulse Ox Last 24 Hr 98.7 F-101.5 F 58-117 15-27 84-119/44-74 92-100 Intake & Output 09/15/19 09/16/19 09/17/19 09/18/19 23:59 23:59 23:59 23:59 Intake Total 553 032 2932 1250 Output Total 1500 1100 2800 1000 Balance -510 -240 -1430 250 Weight 94.461 kg 95.481 kg 97.125 kg Gen: NAD at rest Heart: RRR Lung: decreased breath sounds at the bases Abd: soft, nontender Ext: no edema CBC, BMP 09/18/19 05:30 09/18/19 05:30 Active Medications Acetaminophen (Ofirmev Injection -) 1,000 mg IVPB Q6H PRN PRN Reason: fever or pain Last Admin: 09/17/19 17:54 Dose: 1,000 mg Amitriptyline HCl (Elavil -) 100 mg PO HS ARNIE Last Admin: 09/17/19 21:43 Dose: 100 mg Benzocaine/Menthol (Cepacol Lozenge -) 1 each MM PRN PRN PRN Reason: SORE THROAT Last Admin: 09/17/19 17:36 Dose: 1 each Dexamethasone Sodium Phosphate (Decadron Injection -) 4 mg IVPUSH ONCE PRN PRN Reason: NAUSEA AND/OR VOMITING Diphenhydramine HCl (Benadryl -) 50 mg PO BID ARNIE Last Admin: 09/18/19 10:38 Dose: 50 mg Gabapentin (Neurontin -) 600 mg PO TID ARNIE Last Admin: 09/18/19 05:42 Dose: 600 mg Hydromorphone HCl (Hydromorphone 10 Mg/50 Ml-Ns) 10 mg VEHICLE DYNAMICS ENGINEER VEHICLE DYNAMICS ENGINEER ARNIE; Protocol Stop: 09/19/19 19:57 Last Admin: 09/17/19 21:54 Dose: 10 mg Piperacillin Sod/Tazobactam (Sod 3.375 gm/ Dextrose) 50 mls @ 100 mls/hr IVPB Q8H-IV ARNIE; Protocol Lorazepam (Ativan Injection -) 2 mg IVPUSH Q6H PRN PRN Reason: ANXIETY Last Admin: 09/18/19 08:27 Dose: 2 mg Mupirocin (Bactroban 2% Ointment -) 1 applic TP BID [facility] Last Admin: 09/18/19 10:37 Dose: 1 applic Ondansetron HCl (Zofran Injection) 4 mg IVPUSH Q6H PRN PRN Reason: NAUSEA AND/OR VOMITING Last Admin: 09/13/19 20:27 Dose: 4 mg Ondansetron HCl (Zofran Injection) 4 mg IVPUSH Q4H PRN PRN Reason: NAUSEA AND/OR VOMITING Polyethylene Glycol (Miralax (For Daily Use) -) 17 gm PO BID [facility] Last Admin: 09/18/19 10:38 Dose: 17 grams Promethazine HCl (Phenergan Injection -) 12.5 mg IVPB Q6H PRN PRN Reason: NAUSEA AND/OR VOMITING ASSESSMENT AND PLAN: Progressive Kyphoscoliosis s/p T1-T3 Laminectomies/C7-T4 Fusion/T8-S1 Posterior Instrumentation/Arthrodesis Anemia Volume Overload Fevers - on empiric antibiotics - f/u pending cultures - check LE dopplers - pain control - incentive spirometry - d/c IVF as pt appears volume overloaded - PO as tolerated - antiemetics - monitor drain output - activity/diet/DVT prophylaxis per surgery
--- NOTE | 2019-09-18 12:37 | CONS ---
DATE OF CONSULTATION: DATE OF DICTATION: 09/18/2019 INFECTIOUS DISEASE CONSULTATION HISTORY OF PRESENT ILLNESS: The patient is a 59-year-old female who has had multiple spinal surgeries in the past who is evaluated for postoperative fever. She was admitted to the hospital on September 09, 2019, for spinal surgery. She underwent a T1, T2, T3 laminectomy; C7-T4 fusion; and bone allograft. She is presently postop day number 9. Patient developed fever to 101.5 and was noted to be hypoxemic. She was placed on a nonrebreather mask. Chest x-ray showed pulmonary vascular congestion bilaterally. The patient is awake and alert, and she complains of back pain. She denies any chest pain or shortness of breath. She does have an occasional cough, difficulty expectorating. She was scheduled to have Achilles tendon surgery; however, this has been postponed secondary to her hypoxemia and fever. PAST MEDICAL HISTORY: Positive for multiple spinal surgeries in the past complicated by infection, spinal stenosis, multiple sclerosis. ALLERGIES: TO LATEX, MORPHINE, AND TITANIUM. MEDICATIONS: At the present time include Tylenol, Elavil, dexamethasone, Lasix, Neurontin, Zosyn. SOCIAL HISTORY: She resides in the community with her significant other. Nonsmoker. Occasional EtOH. SYSTEM REVIEW: Neurologic: No loss of consciousness, seizure activity, focal weakness. Cardiac: Negative chest pain or palpitations. Respiratory: As per HPI. Gastrointestinal: Negative vomiting or diarrhea. Genitourinary: Negative for urinary tract infection. LABORATORY DATA: White count 10.1, hematocrit 23.1, platelet count 463. Creatinine 0.4. Urinalysis 3+ leukocyte esterase, no white cells noted. Alkaline phosphatase 306. Blood and urine cultures are pending. CHEST X-RAY: Shows increased interstitial markings bilaterally. PHYSICAL EXAMINATION: General: The patient is awake and alert, in moderate distress secondary to back pain. Vital Signs: Temperature 99.2, T-max 101.5, blood pressure 117/67, pulse 92 regular, respirations 18 per minute. Eyes: Sclerae anicteric. Heart: Sounds S1, S2. Lungs: Diminished breath sounds bilaterally. Abdomen: Soft. No tenderness elicited. Extremities: Positive for edema. Negative Jer sign. There is a surgical dressing present over the spine, which was not removed. IMPRESSION: 1. Postoperative fever. 2. Rule out healthcare-acquired pneumonia. 3. Status post laminectomy postoperative day number 9. PLAN: Suspect possible healthcare-acquired pneumonia enlight of fever, hypoxemia, and chest x-ray findings. Await culture results. Empiric antibiotic coverage with Zosyn. Would consider CAT scan of the chest to further assess lung parenchyma and rule out possible pulmonary embolism. Will follow. Thank you for the kind referral. DANGELO DRAPER M.D. [id number]
--- NOTE | 2019-09-18 12:49 | ECHO ---
Name: LALO ASNCHES Exam:Adult Echocardiogram Study Date: 09/18/2019 07:31 AM Age: 59 yrs Reason For Study: interstitial fluid Height: 67 in Weight: 210 lb BSA: 2.1 m2 MMode/2D Measurements & Calculations IVSd: 0.86 cm Ao root diam: 2.3 cm LVIDd: 5.1 cm LA dimension: 3.0 cm LVIDs: 3.1 cm LVPWd: 0.78 cm EDV(Teich): 124.0 ml LVOT diam: 2.0 cm ESV(Teich): 37.5 ml Doppler Measurements & Calculations MV E max carlos: 105.0 cm/sec Ao V2 max: 196.1 cm/sec MV A max carlos: 57.2 cm/sec Ao max P.4 mmHg MV E/A: 1.8 Ao V2 mean: 149.7 cm/sec MV dec time: 0.11 sec Ao mean P.1 mmHg Ao V2 VTI: 33.6 cm LISA(I,D): 2.0 cm2 LISA(V,D): 2.0 cm2 LV V1 max P.4 mmHg MR max carlos: 425.2 cm/sec LV V1 mean P.1 mmHg MR max P.4 mmHg LV V1 max: 125.9 cm/sec LV V1 mean: 81.0 cm/sec LV V1 VTI: 21.6 cm SV(LVOT): 68.1 ml TR max carlos: 271.5 cm/sec TR max P.0 mmHg PA V2 max: 133.0 cm/sec Med Peak E' Carlos: 9.7 cm/sec PA max P.1 mmHg Med E/e': 10.8 Lat Peak E' Carlos: 12.7 cm/sec Lat E/e': 8.2 PI Vmax: 107.2 cm/sec Procedure A two-dimensional transthoracic echocardiogram with color flow and Doppler was performed. Left Ventricle The left ventricular size, thickness and function are normal. The left ventricular ejection fraction is normal. Left Ventricular Filling pattern is normal for age. The left ventricular wall motion is anival l. Right Ventricle The right ventricle is normal in size and function. Atria Normal left and right atrial size and function. Mitral Valve There is mild mitral valve thickening. There is no mitral valve stenosis. There is trace to mild mitr al regurgitation. Tricuspid Valve There is mild tricuspid valve thickening. There is no tricuspid stenosis. There is mild tricuspid regurgitation. Right ventricular systolic pressure is elevated at 30-40mmHg. Aortic Valve The aortic valve is not well visualized. No hemodynamically significant valvular aortic stenosis. No aortic regurgitation is present. Pulmonic Valve The pulmonic valve is not well visualized. Great Vessels The aortic root is normal size. Pericardium/Pleura There is no pericardial effusion. Interpretation Summary The left ventricular size, thickness and function are normal The left ventricular ejection fraction is normal. The left ventricular wall motion is normal. There is mild tricuspid regurgitation. Right ventricular systolic pressure is elevated at 30-40mmHg. Left Ventricular Filling pattern is normal for age. There is trace to mild mitral regurgitation. MD Messi Inman 09/18/2019 12:49 PM
--- NOTE | 2019-09-18 14:17 | PN ---
Physical Exam: SUBJECTIVE: Patient seen and examined. Spiked a fever yesterday. Does not endorse difficulty breathing or cough. Feels tired. OBJECTIVE: Vital Signs Period Temp Pulse Resp BP Sys/Gallagher Pulse Ox Last 24 Hr 98.7 F-101.5 F 58-117 15-27 84-121/44-74 92-100 GENERAL: The patient is awake, alert, and fully oriented, in mild distress HEAD: Normal with no signs of trauma. EYES: PERRL, extraocular movements intact ENT: Ears normal, nares patent, dry mucous membranes. NECK: Trachea midline LUNGS: Bibasilar crackles. No wheezes, no accessory muscle use. HEART: Regular rate and rhythm, no murmur ABDOMEN: Soft, nontender, nondistended, normoactive bowel sounds BACK: pinpoint area of erythema on left upper back just lateral to bandage EXTREMITIES: Warm, well-perfused, no edema. Can actively move both feet L>R. NEUROLOGICAL: Normal speech SKIN: Warm, dry, normal turgor Laboratory Results - last 24 hr CBC, BMP 09/18/19 05:30 09/18/19 05:30 Urine Test Results Urine Color Yellow Urine Appearance Turbid Urine pH 5.0 (5.0-8.0) Ur Specific Gower 1.007 (1.010-1.035) L Urine Protein Trace (NEGATIVE) Urine Glucose (UA) Negative (NEGATIVE) Urine Ketones Negative (NEGATIVE) Urine Blood 2+ (NEGATIVE) H Urine Nitrite Positive (NEGATIVE) H Urine Bilirubin Negative (NEGATIVE) Ur Leukocyte Esterase 3+ (NEGATIVE) H Active Medications Acetaminophen (Ofirmev Injection -) 1,000 mg IVPB Q6H PRN PRN Reason: fever or pain Last Admin: 09/17/19 17:54 Dose: 1,000 mg Amitriptyline HCl (Elavil -) 100 mg PO HS ARNIE Last Admin: 09/17/19 21:43 Dose: 100 mg Benzocaine/Menthol (Cepacol Lozenge -) 1 each MM PRN PRN PRN Reason: SORE THROAT Last Admin: 09/17/19 17:36 Dose: 1 each Dexamethasone Sodium Phosphate (Decadron Injection -) 4 mg IVPUSH ONCE PRN PRN Reason: NAUSEA AND/OR VOMITING Diphenhydramine HCl (Benadryl -) 50 mg PO BID ARNIE Last Admin: 09/18/19 10:38 Dose: 50 mg Gabapentin (Neurontin -) 600 mg PO TID [facility] Last Admin: 09/18/19 05:42 Dose: 600 mg Hydromorphone HCl (Hydromorphone 10 Mg/50 Ml-Ns) 10 mg VAMP PRESSER VAMP PRESSER [facility]; Protocol Stop: 09/19/19 19:57 Last Admin: 09/17/19 21:54 Dose: 10 mg Piperacillin Sod/Tazobactam (Sod 3.375 gm/ Dextrose) 50 mls @ 100 mls/hr IVPB Q8H-IV ARNIE; Protocol Lorazepam (Ativan Injection -) 2 mg IVPUSH Q6H PRN PRN Reason: ANXIETY Last Admin: 09/18/19 08:27 Dose: 2 mg Mupirocin (Bactroban 2% Ointment -) 1 applic TP BID [facility] Last Admin: 09/18/19 10:37 Dose: 1 applic Ondansetron HCl (Zofran Injection) 4 mg IVPUSH Q6H PRN PRN Reason: NAUSEA AND/OR VOMITING Last Admin: 09/13/19 20:27 Dose: 4 mg Ondansetron HCl (Zofran Injection) 4 mg IVPUSH Q4H PRN PRN Reason: NAUSEA AND/OR VOMITING Polyethylene Glycol (Miralax (For Daily Use) -) 17 gm PO BID [facility] Last Admin: 09/18/19 10:38 Dose: 17 grams Promethazine HCl (Phenergan Injection -) 12.5 mg IVPB Q6H PRN PRN Reason: NAUSEA AND/OR VOMITING ASSESSMENT/PLAN: Ms. Tafoya is a 59y/o female with multiple (~30) back and spine surgeries, complex global myofascial pain syndrome, recurrent spinal stenosis, multiple sclerosis, and mechanical thoracolumbar instability who presents for spinal surgery. This includes inspection fusion mass (c-spine), T1-3 laminectomies, C7- T4 in situ fusion, inspection fusion mass (thoracolumbar spine), posterior instrumentation T8-S1, posterior arthrodesis T8-S1, bone allograft, bone autograft, and complex wound closure (60cm). #Hypoxia and fevers Fluid overload vs pneumonia Pt appears hypervolemic. Spiked multiple fevers, no leukocytosis. CXR: BL infiltrates at bases Received one dose of lasix yesterday. D/c'ed fluids for now Started on Zosyn 3.375gm Q8H per ID (Dr. Bennett) for empiric treatment F/u blood, urine, and sputum cx Incentive spirometry #Complex spinal pain 2/2 mechanical instability and myofascial decompensation s/ p multi-level spinal intervention, POD 7. Planned achilles lengthening procedure with ortho (Shein). Surgery deferred until due to fevers and hypoxia. Will cont to monitor. Pain management Scheduled IV tylenol Dilaudid VAMP PRESSER pump Gabapentin 300mg TID Ativan 2mg Q6H PRN muscle spasms Zofran PRN PT eval daily. No bending, lifting (>5 lbs), or twisting for 9-12 months, f/ u 7-10 days after rehab d/c #Bilateral lung rales w/hypoxia Pt in mid 80s on RA, now satting in 90s at 5L NC CXR: interstitial fluid BL Incentive spirometry Likely 2/2 to atelectasis as pt has been mostly bed-bound #Normocytic anemia Recent surgery, no sign of overt bleeding Hgb: 8.3, down from 9.3 Cont to monitor closely #Hypomagnesemia M.7 yesterday, repleted with 1gm IV Cont to monitor daily #FEN Monitor Mg and Hb Sodium controlled diet #Dispo: Surgery on Tuesday 09/18 Monitor in ICU SNF Visit type - Emergency Visit Emergency Visit: No - New Patient This patient is new to me today: No - Critical Care Critical Care patient: Yes Total Critical Care Time (in minutes): 45 Critical Care Statement: The care of this patient involved high complexity decision making to prevent further life threatening deterioration of the patient 's condition and/or to evaluate & treat vital organ system(s) failure or risk of failure. ATTENDING PHYSICIAN STATEMENT I saw and evaluated the patient. I reviewed the resident's note and discussed the case with the resident. I agree with the resident's findings and plan as documented. SUBJECTIVE: OBJECTIVE: ASSESSMENT AND PLAN:
--- NOTE | 2019-09-18 14:53 | PN ---
Physical Exam: SUBJECTIVE: Patient seen and examined by the bedside. No overnight complaints, states that she is anxious about her surgery being postponed again. OBJECTIVE: Vital Signs Period Temp Pulse Resp BP Sys/Gallagher Pulse Ox Last 24 Hr 98.7 F-101.5 F 58-117 15-27 84-121/44-74 92-100 GENERAL: The patient is AOx3, and fully oriented, pain well controlled HEAD: Normal with no signs of trauma. EYES: PERRL, extraocular movements intact, sclera anicteric, conjunctiva clear. No ptosis. LUNGS: Breath sounds equal, clear to auscultation bilaterally, no wheezes, no crackles, no accessory muscle use. HEART: Regular rate and rhythm, S1, S2 without murmur, rub or gallop. ABDOMEN: Soft, nontender, nondistended, normoactive bowel sounds, no guarding, no rebound, no hepatosplenomegaly, no masses. EXTREMITIES: 2+ pulses, warm, well-perfused, no edema. NEUROLOGICAL: Lower limb weakness Laboratory Results - last 24 hr 09/17/19 09/17/19 09/18/19 14:00 21:00 05:30 WBC 10.1 H RBC 2.55 L Hgb 7.8 L Hct 23.1 L MCV 90.6 MCH 30.4 MCHC 33.6 RDW 14.9 Plt Count 463 H D MPV 7.4 L Absolute Neuts (auto) 7.6 Neutrophils % 75.5 Lymphocytes % 12.7 Monocytes % 6.1 Eosinophils % 5.4 H Basophils % 0.3 Nucleated RBC % 0 Sodium Potassium Chloride Carbon Dioxide Anion Gap BUN Creatinine Est GFR (CKD-EPI)AfAm Est GFR (CKD-EPI)NonAf Random Glucose Calcium Phosphorus Magnesium Total Bilirubin AST ALT Alkaline Phosphatase Total Protein Albumin Urine Color Yellow Urine Appearance Turbid Urine pH 5.0 Ur Specific Negley 1.007 L Urine Protein Trace Urine Glucose (UA) Negative Urine Ketones Negative Urine Blood 2+ H Urine Nitrite Positive H Urine Bilirubin Negative Urine Urobilinogen 1.0 Ur Leukocyte Esterase 3+ H Urine WBC (Auto) 0 Urine RBC (Auto) 0 Urine Casts (Auto) 1 U Epithel Cells (Auto) 0.1 Urine Bacteria (Auto) 0.5 Blood Type A POSITIVE Antibody Screen Negative 09/18/19 05:30 WBC RBC Hgb Hct MCV MCH MCHC RDW Plt Count MPV Absolute Neuts (auto) Neutrophils % Lymphocytes % Monocytes % Eosinophils % Basophils % Nucleated RBC % Sodium 140 Potassium 4.0 Chloride 105 Carbon Dioxide 31 Anion Gap 3 L BUN 8.8 Creatinine 0.4 L Est GFR (CKD-EPI)AfAm 134.00 Est GFR (CKD-EPI)NonAf 115.62 Random Glucose 101 Calcium 7.8 L Phosphorus 3.6 Magnesium 1.9 Total Bilirubin 0.5 AST 28 ALT 30 Alkaline Phosphatase 306 H Total Protein 5.1 L Albumin 1.6 L Urine Color Urine Appearance Urine pH Ur Specific Negley Urine Protein Urine Glucose (UA) Urine Ketones Urine Blood Urine Nitrite Urine Bilirubin Urine Urobilinogen Ur Leukocyte Esterase Urine WBC (Auto) Urine RBC (Auto) Urine Casts (Auto) U Epithel Cells (Auto) Urine Bacteria (Auto) Blood Type Antibody Screen Active Medications Generic Name Dose Route Start Last Admin Trade Name Freq PRN Reason Stop Dose Admin Acetaminophen 1,000 mg 09/15/19 17:45 09/17/19 17:54 Ofirmev Injection - IVPB 1,000 mg Q6H PRN Administration fever or pain Amitriptyline HCl 100 mg 09/10/19 16:26 09/17/19 21:43 Elavil - PO 100 mg HS ARNIE Administration Benzocaine/Menthol 1 each 09/17/19 12:19 09/17/19 17:36 Cepacol Lozenge - MM 1 each PRN PRN Administration SORE THROAT Dexamethasone Sodium Phosphate 4 mg 09/11/19 18:40 Decadron Injection - IVPUSH ONCE PRN NAUSEA AND/OR VOMITING Diphenhydramine HCl 50 mg 09/15/19 10:00 09/18/19 10:38 Benadryl - PO 50 mg BID ARNIE Administration Gabapentin 600 mg 09/13/19 14:00 09/18/19 05:42 Neurontin - PO 600 mg TID ARNIE Administration Hydromorphone HCl 10 mg 09/12/19 20:00 09/17/19 21:54 Hydromorphone 10 Mg/50 Ml-Ns AUDIT OFFICER 09/19/19 19:57 10 mg AUDIT OFFICER ARNIE Administration Protocol Piperacillin Sod/Tazobactam 50 mls @ 100 mls/hr 09/18/19 18:00 Sod 3.375 gm/ Dextrose IVPB Q8H-IV ARNIE Protocol Lorazepam 2 mg 09/17/19 16:51 09/18/19 08:27 Ativan Injection - IVPUSH 2 mg Q6H PRN Administration ANXIETY Mupirocin 1 applic 09/15/19 10:45 09/18/19 10:37 Bactroban 2% Ointment - TP 1 applic BID ARNIE Administration Ondansetron HCl 4 mg 09/09/19 16:47 09/13/19 20:27 Zofran Injection IVPUSH 4 mg Q6H PRN Administration NAUSEA AND/OR VOMITING Ondansetron HCl 4 mg 09/11/19 18:40 Zofran Injection IVPUSH Q4H PRN NAUSEA AND/OR VOMITING Polyethylene Glycol 17 gm 09/17/19 22:00 09/18/19 10:38 Miralax (For Daily Use) - PO 17 grams BID ARNIE Administration Promethazine HCl 12.5 mg 09/11/19 18:43 Phenergan Injection - IVPB Q6H PRN NAUSEA AND/OR VOMITING ASSESSMENT/PLAN: This is a 59 YO F with PMH significant for MS, recurrent spinal stenosis and multiple spinal surgeries, complex global myofascial pain syndrome, and mechanical thoracolumbar instability. She was admitted for spinal surgery including inspection fusion mass (c-spine), T1-3 laminectomies, C7-T4 in situ fusion, inspection fusion mass (thoracolumbar spine), posterior instrumentation T8-S1, posterior arthrodesis T8-S1, bone allograft, bone autograft, and complex wound closure, and is currently POD 7, pending Bakers Slide procedure on Monday. #Neuro - Lorazepam 2mg IV Q6H PRN - Benadryl 50mg PO BID - Amytriptyline 100mg PO HS - Pain: Hydromorphone 10mg AUDIT OFFICER, Ofiramev 1000mg IV Q6H PRN - Nasuea: Promethazine 12.5mg IV Q6H PRN and Zofran 4mg IV Q4H #Ortho - Aguilar's slide procedure postponed due to fever of 101.5 at 5:30PM yesterday - Gabapentin 600mg PO TID - PT eval daily: No bending, lifting (>5 lbs), or twisting for 9-12 months, f/u 7-10 days after rehab d/c #ID - Temp 101.5 at 5:30PM yesterday, 99.5 at 10PM, has been afebrile overnight - WBC 11.0 -> 10.5 -> 8.5 -> 10.1 - Source may be respiratory vs extremities (B/L edema, duplex ordered) - Blood cx pending - Urine cx no growth - Zosyn 3.375mg started - Ofiramev 1000mg IV Q6H PRN - Dr. Miranda consulted #Respiratory - Appeared to be fluid overloaded - CXR showed infiltrates at the base B/L - NC at 5L O2 - Incentive spirometery #GI - Alk Phos 100 -> 165 -> 216 -> 306 - Miralax 17mg BID #Renal - BUN/Cr 9.4/0.4 -> 8.8/0.4 - UA 2+ blood, 3+ LE with 0.5 bacteria and 0 WBC - Repeat UA - I/O monitoring #Heme - Hg/Hct 7.6/23.4 -> 7.8/23.1 #FEN - IVF D/Chad, patient looks fluid overloaded, also NPO stopped so fluids no longer necessary - Mg 1.9 - Ca 7.8, corrected - Cholesterol controlled diet, as tolerated #DVT PE - SCDs #Dispo: - Surgery tomorrow - Monitor in ICU til then Visit type - Emergency Visit Emergency Visit: Yes ED Registration Date: 09/09/19 Care time: The patient presented to the Emergency Department on the above date and was hospitalized for further evaluation of their emergent condition. - New Patient This patient is new to me today: No - Critical Care Critical Care patient: Yes Total Critical Care Time (in minutes): 36 Critical Care Statement: The care of this patient involved high complexity decision making to prevent further life threatening deterioration of the patient 's condition and/or to evaluate & treat vital organ system(s) failure or risk of failure. ATTENDING PHYSICIAN STATEMENT I saw and evaluated the patient. I reviewed the resident's note and discussed the case with the resident. I agree with the resident's findings and plan as documented. SUBJECTIVE: OBJECTIVE: ASSESSMENT AND PLAN:
[2019-09-18] MEDS: ACETAMINOPHEN 1000 MG/100 ML VIAL (NON FORMULARY) IVPB PRN (15:39)
--- NOTE | 2019-09-18 16:32 | PN ---
Progress Note (short form) - Note Progress Note: PODPOD#9 ICU Stable Awake Fully orientated TPS Did walk in the room with PT Temp As per chart CVS Stable RESP AE equal bilaterally XRay interstitial pneumonitis ABD Soft Distended DId pass flatus Has passed stool NEURO At baseline MSKeletal Wound bandage dry Drain removed ` Feet Bilateral equinus PLAN Continue Medical and nursing mx in ICU Log roll 30 to 45 minutes Pain MX as per anaesthesia team For pain mx consult when stable PT Mobilize all joints passively Sit Aguilar slide bilaterally At present holding off further surgery until medically stable. once Temp has settle and will place feet in AFO and Ortho shoes Will decide on surgical timing depending on general condition.
[2019-09-18] MEDS: HYDROmorphone *PCA* 10MG/50ML DISP.SYRIN PCA SCH (17:29)
[2019-09-18 19:08] LABS: HYALINE CASTS 34 /lpf (0-8); URINE APPEARANCE CLOUDY; URINE BACTERIA 1036.5 /hpf (NEGATIVE); URINE BILIRUBIN NEGATIVE (NEGATIVE); URINE COLOR YELLOW; URINE GLUCOSE (UA) NEGATIVE (NEGATIVE); URINE KETONE NEGATIVE (NEGATIVE); URINE LEUK ESTERASE 2+ (NEGATIVE); URINE NITRITE POSITIVE (NEGATIVE); URINE PROTEIN 1+ (NEGATIVE); URINE RBC 5 /hpf (0-4); URINE WBC 337 /hpf (0-5)
--- NOTE | 2019-09-18 20:06 | PN ---
Teaching Attending Note Name of Resident: Chanda Graham ATTENDING PHYSICIAN STATEMENT I saw and evaluated the patient. I reviewed the resident's note and discussed the case with the resident. I agree with the resident's findings and plan as documented. SUBJECTIVE: Ongoing back and LE pain. SOB and Hypoxia. No cough/sputum. OBJECTIVE: Fever resolved. Tmax 101.5. Hemodynamically Stable. Last Vital Signs Temp Pulse Resp BP Pulse Ox 99.3 F 101 H 18 115/80 91 L 09/18/19 13:56 09/18/19 17:29 09/18/19 17:29 09/18/19 17:29 09/18/19 18:00 Heart - S1, S2, RRR Lungs - bibasal crackles Abdomen - Soft, non-tender. Bowel Sounds normal. Extremities - no edema, no calf tenderness. Laboratory Results - last 24 hr 09/17/19 09/18/19 09/18/19 21:00 05:30 05:30 WBC 10.1 H RBC 2.55 L Hgb 7.8 L Hct 23.1 L MCV 90.6 MCH 30.4 MCHC 33.6 RDW 14.9 Plt Count 463 H D MPV 7.4 L Absolute Neuts (auto) 7.6 Neutrophils % 75.5 Lymphocytes % 12.7 Monocytes % 6.1 Eosinophils % 5.4 H Basophils % 0.3 Nucleated RBC % 0 Sodium 140 Potassium 4.0 Chloride 105 Carbon Dioxide 31 Anion Gap 3 L BUN 8.8 Creatinine 0.4 L Est GFR (CKD-EPI)AfAm 134.00 Est GFR (CKD-EPI)NonAf 115.62 Random Glucose 101 Calcium 7.8 L Phosphorus 3.6 Magnesium 1.9 Total Bilirubin 0.5 AST 28 ALT 30 Alkaline Phosphatase 306 H Total Protein 5.1 L Albumin 1.6 L Urine Color Yellow Urine Appearance Turbid Urine pH 5.0 Ur Specific Russell 1.007 L Urine Protein Trace Urine Glucose (UA) Negative Urine Ketones Negative Urine Blood 2+ H Urine Nitrite Positive H Urine Bilirubin Negative Urine Urobilinogen 1.0 Ur Leukocyte Esterase 3+ H Urine WBC (Auto) 0 Urine RBC (Auto) 0 Urine Casts (Auto) 1 U Pathogenic Cast Auto U Epithel Cells (Auto) 0.1 Urine Bacteria (Auto) 0.5 09/18/19 18:14 WBC RBC Hgb Hct MCV MCH MCHC RDW Plt Count MPV Absolute Neuts (auto) Neutrophils % Lymphocytes % Monocytes % Eosinophils % Basophils % Nucleated RBC % Sodium Potassium Chloride Carbon Dioxide Anion Gap BUN Creatinine Est GFR (CKD-EPI)AfAm Est GFR (CKD-EPI)NonAf Random Glucose Calcium Phosphorus Magnesium Total Bilirubin AST ALT Alkaline Phosphatase Total Protein Albumin Urine Color Yellow Urine Appearance Cloudy Urine pH 7.0 D Ur Specific Russell 1.021 Urine Protein 1+ H Urine Glucose (UA) Negative Urine Ketones Negative Urine Blood 1+ H Urine Nitrite Positive H Urine Bilirubin Negative Urine Urobilinogen 1.0 Ur Leukocyte Esterase 2+ H Urine WBC (Auto) 337 Urine RBC (Auto) 5 Urine Casts (Auto) 34 U Pathogenic Cast Auto Positive U Epithel Cells (Auto) 3.0 Urine Bacteria (Auto) 1036.5 Current Medications Generic Name Dose Route Start Last Admin Trade Name Freq PRN Reason Stop Dose Admin Amitriptyline HCl 100 mg 09/10/19 16:26 09/17/19 21:43 Elavil - PO 100 mg HS ARNIE Administration Benzocaine/Menthol 1 each 09/17/19 12:19 09/17/19 17:36 Cepacol Lozenge - MM 1 each PRN PRN Administration SORE THROAT Dexamethasone Sodium Phosphate 4 mg 09/11/19 18:40 Decadron Injection - IVPUSH ONCE PRN NAUSEA AND/OR VOMITING Diphenhydramine HCl 50 mg 09/15/19 10:00 09/18/19 10:38 Benadryl - PO 50 mg BID ARNIE Administration Gabapentin 600 mg 09/13/19 14:00 09/18/19 15:00 Neurontin - PO 600 mg TID ARNIE Administration Hydromorphone HCl 10 mg 09/12/19 20:00 09/18/19 17:29 Hydromorphone 10 Mg/50 Ml-Ns JOB DEVELOPER 09/19/19 19:57 10 mg JOB DEVELOPER ARNIE Administration Protocol Piperacillin Sod/Tazobactam 50 mls @ 100 mls/hr 09/18/19 18:00 09/18/19 17:23 Sod 3.375 gm/ Dextrose IVPB 100 mls/hr Q8H-IV ARNIE Administration Protocol Mupirocin 1 applic 09/15/19 10:45 09/18/19 10:37 Bactroban 2% Ointment - TP 1 applic BID ARNIE Administration Ondansetron HCl 4 mg 10/14/19 16:47 09/13/19 20:27 Zofran Injection IVPUSH 4 mg Q6H PRN Administration NAUSEA AND/OR VOMITING Ondansetron HCl 4 mg 09/11/19 18:40 Zofran Injection IVPUSH Q4H PRN NAUSEA AND/OR VOMITING Polyethylene Glycol 17 gm 09/17/19 22:00 09/18/19 10:38 Miralax (For Daily Use) - PO 17 grams BID ARNIE Administration Promethazine HCl 12.5 mg 09/11/19 18:43 Phenergan Injection - IVPB Q6H PRN NAUSEA AND/OR VOMITING Home Medications Medication Instructions Recorded Amitriptyline HCl [Elavil -] 50 mg PO HS 01/16/19 Oxycodone HCl 60 mg PO Q8H 01/16/19 HYDROmorphone [Dilaudid -] 8 mg PO Q6H PRN 03/04/19 Cyclobenzaprine HCl 1 tab PO TID 03/05/19 LORazepam [Ativan] 2 mg PO TID tablet MDD 6mg 03/11/19 Amitriptyline HCl 100 mg PO TID 09/06/19 Alprazolam [Xanax] 0.5 mg PO BID 09/12/19 Fluoxetine HCl 10 mg PO BID 09/12/19 Prednisone 5 mg PO QID 09/12/19 ASSESSMENT AND PLAN: 59 year old female with history of MS, recurrent lumbar spinal stenosis, s/p multiple back surgeries, complex global myofascial pain syndrome, mechanical thoracolumbar instability, admitted for spine surgery. POD 9 s/p 1. Inspection fusion mass (cervical spine). 2. T1, T2, T3 laminectomies. 3. C7 -T4 in situ fusion. 4. Inspection fusion mass (thoracolumbar spine). 5. Posterior instrumentation T8-S1. 6. Posterior arthrodesis T8-S1. 7. Bone allograft. 8. Bone autograft. 9. Complex wound closure 1. 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 Bowel regimen. Continue Elavil, Neurontin, Ativan as needed. Further management as per Ortho/Aguilar's procedure planned for achilles tendon release. 2. Acute Hypoxic respiratory failure and Sepsis secondary to Pneumonia Requiring oxygen supplementation up to 5L via NC. CXR - shows interstitial infiltrate/fluid. s/p IV lasix 40mg X 1 Blood/Urine Cx pending. Started on IV Zosyn for HCAP. Monitor respiratory status. CTA Chest to exclude PE. Incentive Spirometry 3. Anemia - normocytic s/p spinal surgery. No evidence of ongoing blood loss Will monitor H/H
[2019-09-18] MEDS: AMITRIPTYLINE HCL 25 MG TABLET (FP) PO SCH (22:26)
[2019-09-19] MEDS ORDERED: PIPERACILLIN/TAZOBACTAM 3.375 GM VIAL IVPB ONE ×3 (03:49→18:35)
[2019-09-19] MEDS ORDERED: DEXTROSE 5%-WATER - 50 ML IVPB ONE ×3 (03:49→18:35)
[2019-09-19] MEDS: PIPERACILLIN/TAZOB 3.375 GM 3.375 GM in DEXTROSE 5%-WATER - 50 ML IVPB SCH ×3 (03:55→18:30)
[2019-09-19] MEDS ORDERED: ACETAMINOPHEN 1000 MG/100 ML VIAL (NON FORMULARY) IVPB ONE (04:48)
[2019-09-19] MEDS: GABAPENTIN 300 MG CAPSULE (FP) PO SCH ×3 (05:46→21:03)
[2019-09-19] MEDS ORDERED: VANCOMYCIN 1 GM in D5W (PRE-DOCKED) 1,000 MG/250 ML IVPB ONE (06:21)
[2019-09-19] MEDS ORDERED: VANCOMYCIN 1 GRAM (PRE-DOCKED) 1,000 MG/250 ML BAG IVPB ONE (06:30)
[2019-09-19 06:38] LABS: BASO % 0.5 % (0-2.0); EOS % 4.1 % (0-4.5); HEMATOCRIT 22.9 % (32.4-45.2); HEMOGLOBIN 7.8 GM/dL (10.7-15.3); LYMPH % 12.7 % (8-40); MCH 30.5 pg (25.7-33.7); MCHC 33.9 g/dl (32.0-36.0); MEAN CELL VOLUME 89.9 fl (80-96); MEAN PLT VOLUME 7.4 fl (7.5-11.1); NEUT % 76.7 % (42.8-82.8); PLATELET COUNT 499 K/MM3 (134-434); RBC 2.55 M/mm3 (3.60-5.2); RDW 14.5 % (11.6-15.6); WHITE BLOOD COUNT 9.2 K/mm3 (4.0-10.0)
--- NOTE | 2019-09-19 06:58 | PN ---
Progress Note (short form) - Note Progress Note: This is a 59 YO F with PMH significant for MS, recurrent spinal stenosis and multiple spinal surgeries, complex global myofascial pain syndrome, and mechanical thoracolumbar instability. She was admitted for spinal surgery including inspection fusion mass (c-spine), T1-3 laminectomies, C7-T4 in situ fusion, inspection fusion mass (thoracolumbar spine), posterior instrumentation T8-S1, posterior arthrodesis T8-S1, bone allograft, bone autograft, and complex wound closure, and is currently POD 8, pending Bakers Slide procedure. --- Stopped ativan for concern for hallucinations Duplex US legs did not show DVT Spiked 101.1F rectal temp this morning. Given 1g ofirmev CTA showed diffuse fibrosis concerning for pneumonia / pulmonary edema. Did not show PE/dissection. Given vancomycinx1 for PNA UA +WBC/bacteria/leuk est concerning for UTI - already given zosyn
--- NOTE | 2019-09-19 07:17 | PN ---
Physical Exam: SUBJECTIVE: Patient seen and examined by the bedside. States she had SOB this morning, which improved after Duonebs. No other complaints. OBJECTIVE: Vital Signs Period Temp Pulse Resp BP Sys/Gallagher Pulse Ox Last 24 Hr 99 F-101.1 F 82-110 16-23 91-142/54-80 85-98 GENERAL: The patient is AOx3, and fully oriented, pain well controlled HEAD: Normal with no signs of trauma. EYES: PERRL, extraocular movements intact, sclera anicteric, conjunctiva clear. No ptosis. LUNGS: Breath sounds equal, clear to auscultation bilaterally, no wheezes, no crackles, no accessory muscle use. HEART: Regular rate and rhythm, S1, S2 without murmur, rub or gallop. ABDOMEN: Soft, nontender, nondistended, normoactive bowel sounds, no guarding, no rebound, no hepatosplenomegaly, no masses. EXTREMITIES: 2+ pulses, warm, well-perfused, no edema. NEUROLOGICAL: Motor strength upper limb 3/5, lower limb 1/5, sensations intact in all extremities Laboratory Results - last 24 hr 09/18/19 09/18/19 09/18/19 05:30 05:30 18:14 WBC 10.1 H RBC 2.55 L Hgb 7.8 L Hct 23.1 L MCV 90.6 MCH 30.4 MCHC 33.6 RDW 14.9 Plt Count 463 H D MPV 7.4 L Absolute Neuts (auto) 7.6 Neutrophils % 75.5 Lymphocytes % 12.7 Monocytes % 6.1 Eosinophils % 5.4 H Basophils % 0.3 Nucleated RBC % 0 Sodium 140 Potassium 4.0 Chloride 105 Carbon Dioxide 31 Anion Gap 3 L BUN 8.8 Creatinine 0.4 L Est GFR (CKD-EPI)AfAm 134.00 Est GFR (CKD-EPI)NonAf 115.62 Random Glucose 101 Calcium 7.8 L Phosphorus 3.6 Magnesium 1.9 Total Bilirubin 0.5 AST 28 ALT 30 Alkaline Phosphatase 306 H Total Protein 5.1 L Albumin 1.6 L Urine Color Yellow Urine Appearance Cloudy Urine pH 7.0 D Ur Specific Boaz 1.021 Urine Protein 1+ H Urine Glucose (UA) Negative Urine Ketones Negative Urine Blood 1+ H Urine Nitrite Positive H Urine Bilirubin Negative Urine Urobilinogen 1.0 Ur Leukocyte Esterase 2+ H Urine WBC (Auto) 337 Urine RBC (Auto) 5 Urine Casts (Auto) 34 U Pathogenic Cast Auto Positive U Epithel Cells (Auto) 3.0 Urine Bacteria (Auto) 1036.5 09/19/19 05:55 WBC 9.2 RBC 2.55 L Hgb 7.8 L Hct 22.9 L MCV 89.9 MCH 30.5 MCHC 33.9 RDW 14.5 Plt Count 499 H MPV 7.4 L Absolute Neuts (auto) 7.0 Neutrophils % 76.7 Lymphocytes % 12.7 Monocytes % 6.0 Eosinophils % 4.1 Basophils % 0.5 Nucleated RBC % 0 Sodium Potassium Chloride Carbon Dioxide Anion Gap BUN Creatinine Est GFR (CKD-EPI)AfAm Est GFR (CKD-EPI)NonAf Random Glucose Calcium Phosphorus Magnesium Total Bilirubin AST ALT Alkaline Phosphatase Total Protein Albumin Urine Color Urine Appearance Urine pH Ur Specific Boaz Urine Protein Urine Glucose (UA) Urine Ketones Urine Blood Urine Nitrite Urine Bilirubin Urine Urobilinogen Ur Leukocyte Esterase Urine WBC (Auto) Urine RBC (Auto) Urine Casts (Auto) U Pathogenic Cast Auto U Epithel Cells (Auto) Urine Bacteria (Auto) Active Medications Generic Name Dose Route Start Last Admin Trade Name Freq PRN Reason Stop Dose Admin Amitriptyline HCl 100 mg 09/10/19 16:26 09/18/19 22:26 Elavil - PO 100 mg HS ARNIE Administration Benzocaine/Menthol 1 each 09/17/19 12:19 09/17/19 17:36 Cepacol Lozenge - MM 1 each PRN PRN Administration SORE THROAT Dexamethasone Sodium Phosphate 4 mg 09/11/19 18:40 Decadron Injection - IVPUSH ONCE PRN NAUSEA AND/OR VOMITING Diphenhydramine HCl 50 mg 09/15/19 10:00 09/18/19 22:25 Benadryl - PO 50 mg BID ARNIE Administration Gabapentin 600 mg 09/13/19 14:00 09/19/19 05:46 Neurontin - PO 600 mg TID ARNIE Administration Hydromorphone HCl 10 mg 09/12/19 20:00 09/18/19 17:29 Hydromorphone 10 Mg/50 Ml-Ns BALE STACKER 09/19/19 19:57 10 mg BALE STACKER ARNIE Administration Protocol Piperacillin Sod/Tazobactam 50 mls @ 100 mls/hr 09/18/19 18:00 09/19/19 03:55 Sod 3.375 gm/ Dextrose IVPB 100 mls/hr Q8H-IV ARNIE Administration Protocol Vancomycin HCl 1,000 mg in 250 mls @ 166.667 mls/hr 09/19/19 06:30 09/19/19 06:53 Vancomycin (Pre-Docked) IVPB 09/19/19 07:59 166.667 mls/hr ONCE ONE Administration Mupirocin 1 applic 09/15/19 10:45 09/18/19 22:27 Bactroban 2% Ointment - TP 1 applic BID ARNIE Administration Ondansetron HCl 4 mg 09/09/19 16:47 09/13/19 20:27 Zofran Injection IVPUSH 4 mg Q6H PRN Administration NAUSEA AND/OR VOMITING Ondansetron HCl 4 mg 09/11/19 18:40 Zofran Injection IVPUSH Q4H PRN NAUSEA AND/OR VOMITING Polyethylene Glycol 17 gm 09/17/19 22:00 09/18/19 22:26 Miralax (For Daily Use) - PO 17 grams BID ARNIE Administration Promethazine HCl 12.5 mg 09/11/19 18:43 Phenergan Injection - IVPB Q6H PRN NAUSEA AND/OR VOMITING ASSESSMENT/PLAN: This is a 59 YO F with PMH significant for MS, recurrent spinal stenosis and multiple spinal surgeries, complex global myofascial pain syndrome, and mechanical thoracolumbar instability. She was admitted for spinal surgery including inspection fusion mass (c-spine), T1-3 laminectomies, C7-T4 in situ fusion, inspection fusion mass (thoracolumbar spine), posterior instrumentation T8-S1, posterior arthrodesis T8-S1, bone allograft, bone autograft, and complex wound closure, and is currently POD 9, pending Bakers Slide procedure. #Respiratory - Suspecting ARDS - LIPS score (Lung Injury Prediction Score) is 4.5, over 4 predicts ARDS with specificity of 78% (ortho surgery 1.5, obesity 1, hypoalbuminemia 1, FiO2 > 0.35 1) - CTA: diffuse fibrosis concerning for pneumonia/edema. No PE/dissection - Lasix 40mg IVPUSH once - Switched to Hi flow oxygen 50% from NC at 5L O2 - Low threshold for intubation - Fluids D/C yesterday - Incentive spirometery #Neuro - D/C Lorazepam 2mg IV Q6H PRN due to hallucinations - D/C Dilaudid BALE STACKER as per anesthesia because of concern for AMS and respiratory despression - Resumed home med Dilaudid 8mg PO Q6H PRN - Benadryl 50mg PO BID - Amytriptyline 100mg PO HS - Pain: Ofiramev 1000mg IV Q6H PRN - Nasuea: Promethazine 12.5mg IV Q6H PRN and Zofran 4mg IV Q4H #Ortho - Aguilar's slide procedure pending improvement - Gabapentin 600mg PO TID - PT eval daily: No bending, lifting (>5 lbs), or twisting for 9-12 months, f/u 7-10 days after rehab d/c #ID - Temp 101.5 at 4AM today, 99.9 at 2AM, given Ofiramev - WBC 11.0 -> 10.5 -> 8.5 -> 10.1 -> 9.2 - Blood cx pending - Urine cx pending - Zosyn 3.375mg Q8H day 2 - 1x Vanco 1gm given yesterday - Ofiramev 1000mg IV Q6H PRN - Dr. Miranda consulted #GI - Alk Phos 100 -> 165 -> 216 -> 306 ->336 - Miralax 17mg BID #Renal - Repeat UA: 1+ blood, 2+ LE with 1k bacteria and 337 WBC. proteim 1+. Nitrite + - BUN/Cr 9.4/0.4 -> 8.8/0.4 -> 7.8/0.4 - I/O monitoring #Heme - Hg/Hct 7.6/23.4 -> 7.8/23.1 -> 7.8/22.9 #FEN - IVF D/Chad, patient looks fluid overloaded - Cholesterol controlled diet, as tolerated #DVT PE - SCDs - Duplex B/L showed no evidence of DVT #Dispo: - Monitor in ICU til then Visit type - Emergency Visit Emergency Visit: Yes ED Registration Date: 09/09/19 Care time: The patient presented to the Emergency Department on the above date and was hospitalized for further evaluation of their emergent condition. - New Patient This patient is new to me today: No - Critical Care Critical Care patient: Yes Total Critical Care Time (in minutes): 42 Critical Care Statement: The care of this patient involved high complexity decision making to prevent further life threatening deterioration of the patient 's condition and/or to evaluate & treat vital organ system(s) failure or risk of failure. ATTENDING PHYSICIAN STATEMENT I saw and evaluated the patient. I reviewed the resident's note and discussed the case with the resident. I agree with the resident's findings and plan as documented. SUBJECTIVE: OBJECTIVE: ASSESSMENT AND PLAN:
[2019-09-19 07:26] LABS: ALBUMIN 1.8 g/dl (3.4-5.0); BILIRUBIN,TOTAL 0.6 mg/dL (0.2-1); BLOOD UREA NITROGEN 7.8 mg/dL (7-18); CREATININE 0.4 mg/dL (0.55-1.3); PHOSPHOROUS 3.5 mg/dL (2.5-4.9); POTASSIUM 4.2 mmol/L (3.5-5.1); TOT PROT 5.5 g/dl (6.4-8.2)
[2019-09-19] MEDS ORDERED: POTASSIUM CHLORIDE 20 MEQ PREMIX IVPB 100 ML IVPB ONE ×2 (07:35)
[2019-09-19] MEDS ORDERED: ALBUTEROL SO4 2.5/IPRATROPIUM 0.5 INH SOL 3 ML VIAL.NEB. NEB ONE (08:15)
[2019-09-19] MEDS: diphenhydrAMINE HCL 25 MG CAPSULE (FP) PO SCH ×2 (08:30→21:03)
[2019-09-19] MEDS ORDERED: IPRATROPIUM BR 0.02% 0.5 MG/2.5 ML VIAL.NEB. NEB ONE (09:02)
[2019-09-19] MEDS: MUPIROCIN 2% TOPICAL OINTMENT 22 GM TUBE TP SCH ×2 (10:04→21:02)
--- NOTE | 2019-09-19 10:04 | PN ---
Progress Note (short form) - Note Progress Note: Neurology HISTORY OF PRESENT ILLNESS: 59 y/o female with hx of multiple (~30) back and spine surgeries, complex global myofascial pain syndrome, recurrent spinal stenosis, multiple sclerosis, mechanical thoracolumbar instability, admitted for surgical intervention and per notes completed: 1) inspection fusion mass (c-spine), 2) T1-3 laminectomies, 3) C7-T4 in situ fusion, 4) Inspection fusion mass (thoracolumbar spine), 5) posterior instrumentation T8-S1, 6) posteroir arthrodesis T8-S1, 7) bone allograft, 8) bone autograft, 9) complex wound closure (60cm). 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 Complaints of pain and pain mgmt has been consulted. Extensive conversation regarding her MS history which dates back to >10 years and reports previously on BetaSeron but felt no difference. States last MRI brain was 1 year ago, offered repeat which patient would like to defer and reports prior imaging stable and states she will not be able to stay flat and tolerate procedure. She does not want to start on MS meds and would like to focus on spinal mgmt at this time. As outpatient, would advise MRI brain with and without contrast to start with. Was being plaaned for ruff slide bilterally for feet but with temperature spikes. This morning discussed with the ICU nurse and patient with low-grade temperature but also hypoxia and tachycardic on monitor. discussed with the ICU team and advised further modifications of pain management regimen as this can suppress her respiratory drive. They indicated they would reach out to orthopedic surgeon. Advised evaluation for PE of further respiratory management, patient remains on facemaskat this time. Active Medications Amitriptyline HCl (Elavil -) 100 mg PO HS ARNIE Last Admin: 09/18/19 22:26 Dose: 100 mg Benzocaine/Menthol (Cepacol Lozenge -) 1 each MM PRN PRN PRN Reason: SORE THROAT Last Admin: 09/17/19 17:36 Dose: 1 each Dexamethasone Sodium Phosphate (Decadron Injection -) 4 mg IVPUSH ONCE PRN PRN Reason: NAUSEA AND/OR VOMITING Diphenhydramine HCl (Benadryl -) 50 mg PO BID ARNIE Last Admin: 09/18/19 22:25 Dose: 50 mg Gabapentin (Neurontin -) 600 mg PO TID [facility] Last Admin: 09/19/19 05:46 Dose: 600 mg Hydromorphone HCl (Hydromorphone 10 Mg/50 Ml-Ns) 10 mg FILAMENT WOUND PARTS FABRICATOR FILAMENT WOUND PARTS FABRICATOR [facility]; Protocol Stop: 09/19/19 19:57 Last Admin: 09/18/19 17:29 Dose: 10 mg Piperacillin Sod/Tazobactam (Sod 3.375 gm/ Dextrose) 50 mls @ 100 mls/hr IVPB Q8H-IV ARNIE; Protocol Last Admin: 09/19/19 03:55 Dose: 100 mls/hr Mupirocin (Bactroban 2% Ointment -) 1 applic TP BID [facility] Last Admin: 09/18/19 22:27 Dose: 1 applic Ondansetron HCl (Zofran Injection) 4 mg IVPUSH Q6H PRN PRN Reason: NAUSEA AND/OR VOMITING Last Admin: 09/13/19 20:27 Dose: 4 mg Ondansetron HCl (Zofran Injection) 4 mg IVPUSH Q4H PRN PRN Reason: NAUSEA AND/OR VOMITING Polyethylene Glycol (Miralax (For Daily Use) -) 17 gm PO BID [facility] Last Admin: 09/18/19 22:26 Dose: 17 grams Promethazine HCl (Phenergan Injection -) 12.5 mg IVPB Q6H PRN PRN Reason: NAUSEA AND/OR VOMITING PHYSICAL EXAMINATION Vital Signs Period Temp Pulse Resp BP Sys/Gallagher Pulse Ox Last 24 Hr 99 F-101.1 F 82-110 16-23 91-142/50-80 85-98 GENERAL: Awake, alert, and fully oriented, in no acute distress. HEAD: Normal with no signs of trauma. EYES: Pupils equal, round and reactive to light, extraocular movements intact, sclera anicteric, conjunctiva clear. No lid lag. EARS, NOSE, THROAT: Ears normal, nares patent, oropharynx clear without exudates. Moist mucous membranes. NECK: Normal range of motion, supple without lymphadenopathy, JVD, or masses. LUNGS: Breath sounds equal, clear to auscultation bilaterally. No wheezes, and no crackles. No accessory muscle use. HEART: Regular rate and rhythm, normal S1 and S2 without murmur, rub or gallop. ABDOMEN: Soft, nontender, not distended, normoactive bowel sounds, no guarding, no rebound, no masses. No hepatomegaly or splenomegaly. MUSCULOSKELETAL: Normal range of motion at all joints. No bony deformities or tenderness. No CVA tenderness. UPPER EXTREMITIES: 2+ pulses, warm, well-perfused. No cyanosis. No clubbing. Cap refill <2 seconds. No peripheral edema. LOWER EXTREMITIES: 2+ pulses, warm, well-perfused. No calf tenderness. No peripheral edema. NEUROLOGICAL: Cranial nerves II-XII intact. Normal speech. Normal gait. PSYCHIATRIC: Cooperative. Good eye contact. Appropriate mood and affect. SKIN: Warm, dry, normal turgor, no rashes or lesions noted. CBCD WBC 9.2 K/mm3 (4.0-10.0) 09/19/19 05:55 RBC 2.55 M/mm3 (3.60-5.2) L 09/19/19 05:55 Hgb 7.8 GM/dL (10.7-15.3) L 09/19/19 05:55 Hct 22.9 % (32.4-45.2) L 09/19/19 05:55 MCV 89.9 fl (80-96) 09/19/19 05:55 MCHC 33.9 g/dl (32.0-36.0) 09/19/19 05:55 RDW 14.5 % (11.6-15.6) 09/19/19 05:55 Plt Count 499 K/MM3 (134-434) H 09/19/19 05:55 MPV 7.4 fl (7.5-11.1) L 09/19/19 05:55 CMP Sodium 142 mmol/L (136-145) 09/19/19 05:55 Potassium 4.2 mmol/L (3.5-5.1) 09/19/19 05:55 Chloride 106 mmol/L (98-107) 09/19/19 05:55 Carbon Dioxide 28 mmol/L (21-32) 09/19/19 05:55 Anion Gap 8 MMOL/L (8-16) 09/19/19 05:55 BUN 7.8 mg/dL (7-18) 09/19/19 05:55 Creatinine 0.4 mg/dL (0.55-1.3) L 09/19/19 05:55 Random Glucose 113 mg/dL (74-106) H 09/19/19 05:55 Calcium 8.0 mg/dL (8.5-10.1) L 09/19/19 05:55 Total Bilirubin 0.6 mg/dL (0.2-1) 09/19/19 05:55 AST 33 U/L (15-37) 09/19/19 05:55 ALT 32 U/L (13-61) 09/19/19 05:55 Alkaline Phosphatase 336 U/L (45-117) H 09/19/19 05:55 Total Protein 5.5 g/dl (6.4-8.2) L 09/19/19 05:55 Albumin 1.8 g/dl (3.4-5.0) L 09/19/19 05:55 ASSESSMENT/PLAN: 59 y/o female with hx of multiple (~30) back and spine surgeries, complex global myofascial pain syndrome, recurrent spinal stenosis, multiple sclerosis, mechanical thoracolumbar instability, POD #0 s/p 1) inspection fusion mass (c- spine), 2) T1-3 laminectomies, 3) C7-T4 in situ fusion, 4) Inspection fusion mass (thoracolumbar spine), 5) posterior instrumentation T8-S1, 6) posteroir arthrodesis T8-S1, 7) bone allograft, 8) bone autograft, 9) complex wound closure (60cm). 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 Complaints of pain and pain mgmt has been consulted. Extensive conversation regarding her MS history which dates back to > 10 years and reports previously on BetaSeron but felt no difference. States last MRI brain was 1 year ago, offered repeat which patient would like to defer and reports prior imaging stable and states she will not be able to stay flat and tolerate procedure. She does not want to start on MS meds and would like to focus on spinal mgmt at this time. As outpatient, would advise MRI brain with and without contrast to start with.Was being plaaned for ruff slide bilterally for feet but with temperature spikes. This morning discussed with the ICU nurse and patient with low-grade temperature but also hypoxia and tachycardic on monitor. discussed with the ICU team and advised further modifications of pain management regimen as this can suppress her respiratory drive. Caution and monitor for withdrawal. They indicated they would reach out to orthopedic surgeon. Advised evaluation for PE of further respiratory management, patient remains on facemask at this time. Critical care time 35 mins.
[2019-09-19] MEDS: POLYETHYLENE GLYCOL 3350 119 GM BTL PO SCH ×2 (10:18→21:22)
[2019-09-19] MEDS: HYDROmorphone *PCA* 10MG/50ML DISP.SYRIN PCA SCH (10:33)
[2019-09-19] MEDS ORDERED: FUROSEMIDE 40 MG/4 ML INJECTABLE VIAL IVPUSH ONE (11:30)
--- NOTE | 2019-09-19 11:30 | PN ---
Teaching Attending Note Name of Resident: Lucas Vasques ATTENDING PHYSICIAN STATEMENT I saw and evaluated the patient. I reviewed the resident's note and discussed the case with the resident. I agree with the resident's findings and plan as documented. SUBJECTIVE: Patient seen and examined in the ICU. Lethargic but arousable. Able to appropriately answer questions. Tachypneic at rest. OR postponed due to fever overnight. (+) cough. Denies CP. OBJECTIVE: Intake & Output 09/16/19 09/17/19 09/18/19 09/19/19 23:59 23:59 23:59 23:59 Intake Total 860 1370 2250 150 Output Total 1100 2800 2200 1800 Balance -240 -1430 50 -1650 Weight 208 lb 4 oz 210 lb 8 oz 214 lb 2 oz 214 lb 8 oz Last Vital Signs Temp Pulse Resp BP Pulse Ox 100.8 F H 96 H 22 H 108/50 L 98 09/19/19 09:29 09/19/19 08:00 09/19/19 08:00 09/19/19 08:00 09/19/19 09:00 Active Medications Amitriptyline HCl (Elavil -) 100 mg PO HS ARNIE Last Admin: 09/18/19 22:26 Dose: 100 mg Benzocaine/Menthol (Cepacol Lozenge -) 1 each MM PRN PRN PRN Reason: SORE THROAT Last Admin: 09/17/19 17:36 Dose: 1 each Dexamethasone Sodium Phosphate (Decadron Injection -) 4 mg IVPUSH ONCE PRN PRN Reason: NAUSEA AND/OR VOMITING Diphenhydramine HCl (Benadryl -) 50 mg PO BID ARNIE Last Admin: 09/19/19 08:30 Dose: 50 mg Furosemide (Lasix Injection -) 40 mg IVPUSH ONCE ONE Stop: 09/19/19 11:31 Gabapentin (Neurontin -) 600 mg PO TID [facility] Last Admin: 09/19/19 05:46 Dose: 600 mg Hydromorphone HCl (Hydromorphone 10 Mg/50 Ml-Ns) 10 mg OFFENDER JOB RETENTION SPECIALIST OFFENDER JOB RETENTION SPECIALIST ARNIE; Protocol Stop: 09/19/19 19:57 Last Admin: 09/19/19 10:33 Dose: Not Given Piperacillin Sod/Tazobactam (Sod 3.375 gm/ Dextrose) 50 mls @ 100 mls/hr IVPB Q8H-IV ARNIE; Protocol Last Admin: 09/19/19 10:07 Dose: 100 mls/hr Mupirocin (Bactroban 2% Ointment -) 1 applic TP BID [facility] Last Admin: 09/19/19 10:04 Dose: 1 applic Ondansetron HCl (Zofran Injection) 4 mg IVPUSH Q6H PRN PRN Reason: NAUSEA AND/OR VOMITING Last Admin: 09/13/19 20:27 Dose: 4 mg Ondansetron HCl (Zofran Injection) 4 mg IVPUSH Q4H PRN PRN Reason: NAUSEA AND/OR VOMITING Polyethylene Glycol (Miralax (For Daily Use) -) 17 gm PO BID [facility] Last Admin: 09/19/19 10:18 Dose: 17 grams Promethazine HCl (Phenergan Injection -) 12.5 mg IVPB Q6H PRN PRN Reason: NAUSEA AND/OR VOMITING Gen: Lethargic, tachypneic on 50% VM, appropriately answering questions Heart: RRR Lung: bilateral crackles, no wheeze Abd: soft, nontender Ext: no edema Laboratory Results - last 24 hr 09/18/19 09/19/19 09/19/19 18:14 05:55 05:55 WBC 9.2 RBC 2.55 L Hgb 7.8 L Hct 22.9 L MCV 89.9 MCH 30.5 MCHC 33.9 RDW 14.5 Plt Count 499 H MPV 7.4 L Absolute Neuts (auto) 7.0 Neutrophils % 76.7 Lymphocytes % 12.7 Monocytes % 6.0 Eosinophils % 4.1 Basophils % 0.5 Nucleated RBC % 0 Sodium 142 Potassium 4.2 Chloride 106 Carbon Dioxide 28 Anion Gap 8 BUN 7.8 Creatinine 0.4 L Est GFR (CKD-EPI)AfAm 134.00 Est GFR (CKD-EPI)NonAf 115.62 Random Glucose 113 H Calcium 8.0 L Phosphorus 3.5 Magnesium 2.0 Total Bilirubin 0.6 AST 33 ALT 32 Alkaline Phosphatase 336 H Total Protein 5.5 L Albumin 1.8 L Urine Color Yellow Urine Appearance Cloudy Urine pH 7.0 D Ur Specific Brandon 1.021 Urine Protein 1+ H Urine Glucose (UA) Negative Urine Ketones Negative Urine Blood 1+ H Urine Nitrite Positive H Urine Bilirubin Negative Urine Urobilinogen 1.0 Ur Leukocyte Esterase 2+ H Urine WBC (Auto) 337 Urine RBC (Auto) 5 Urine Casts (Auto) 34 U Pathogenic Cast Auto Positive U Epithel Cells (Auto) 3.0 Urine Bacteria (Auto) 1036.5 ASSESSMENT AND PLAN: Suspected ARDS: R/O PNA Progressive Kyphoscoliosis s/p T1-T3 Laminectomies/C7-T4 Fusion/T8-S1 Posterior Instrumentation/Arthrodesis Anemia Volume Overload Fevers No evidence of PE - Change TLC - ABX per ID - Follow CVP, goal 4 if hemodynamics are stable - HFOT - Low threshold for intubation - f/u pending cultures - pain control - incentive spirometry - PO as tolerated - Lasix - monitor drain output - activity/diet/DVT prophylaxis per surgery - ICU monitoring for tenuous status Dr Garza
--- NOTE | 2019-09-19 12:41 | PN ---
Physical Exam: SUBJECTIVE: Patient seen and examined. Pt was delirious and febrile overnight. She endorses weakness and difficulty breathing. OBJECTIVE: Vital Signs Period Temp Pulse Resp BP Sys/Gallagher Pulse Ox Last 24 Hr 99 F-101.1 F 82-110 16-23 91-142/50-96 85-100 GENERAL: Appears lethargic and mildly agitated, but arousable. HEAD: Normal with no signs of trauma. EYES: PERRL, extraocular movements intact ENT: Ears normal, nares patent, dry mucous membranes. NECK: Trachea midline. LUNGS: Bibasilar crackles and wheezes diffusely with intermittent accessory muscle use. Tachypneic on 50% venti mask. HEART: Regular rate and rhythm, no murmur ABDOMEN: Soft, nontender, nondistended, normoactive bowel sounds BACK: Pinpoint area of erythema on left upper back just lateral to bandage EXTREMITIES: Warm, well-perfused, no edema. Can actively move both feet L>R. NEUROLOGICAL: Normal speech SKIN: Warm, dry, normal turgor Laboratory Results - last 24 hr CBC, BMP 09/19/19 05:55 09/19/19 05:55 Active Medications Amitriptyline HCl (Elavil -) 100 mg PO HS [facility] Last Admin: 09/18/19 22:26 Dose: 100 mg Benzocaine/Menthol (Cepacol Lozenge -) 1 each MM PRN PRN PRN Reason: SORE THROAT Last Admin: 09/17/19 17:36 Dose: 1 each Dexamethasone Sodium Phosphate (Decadron Injection -) 4 mg IVPUSH ONCE PRN PRN Reason: NAUSEA AND/OR VOMITING Diphenhydramine HCl (Benadryl -) 50 mg PO BID [facility] Last Admin: 09/19/19 08:30 Dose: 50 mg Gabapentin (Neurontin -) 600 mg PO TID [facility] Last Admin: 09/19/19 05:46 Dose: 600 mg Piperacillin Sod/Tazobactam (Sod 3.375 gm/ Dextrose) 50 mls @ 100 mls/hr IVPB Q8H-IV ARNIE; Protocol Last Admin: 09/19/19 10:07 Dose: 100 mls/hr Mupirocin (Bactroban 2% Ointment -) 1 applic TP BID [facility] Last Admin: 09/19/19 10:04 Dose: 1 applic Ondansetron HCl (Zofran Injection) 4 mg IVPUSH Q6H PRN PRN Reason: NAUSEA AND/OR VOMITING Last Admin: 09/13/19 20:27 Dose: 4 mg Ondansetron HCl (Zofran Injection) 4 mg IVPUSH Q4H PRN PRN Reason: NAUSEA AND/OR VOMITING Polyethylene Glycol (Miralax (For Daily Use) -) 17 gm PO BID ARNIE Last Admin: 09/19/19 10:18 Dose: 17 grams Promethazine HCl (Phenergan Injection -) 12.5 mg IVPB Q6H PRN PRN Reason: NAUSEA AND/OR VOMITING ASSESSMENT/PLAN: Ms. Tafoya is a 59y/o female with multiple (~30) back and spine surgeries, complex global myofascial pain syndrome, recurrent spinal stenosis, multiple sclerosis, and mechanical thoracolumbar instability who presents for spinal surgery. This includes inspection fusion mass (c-spine), T1-3 laminectomies, C7- T4 in situ fusion, inspection fusion mass (thoracolumbar spine), posterior instrumentation T8-S1, posterior arthrodesis T8-S1, bone allograft, bone autograft, and complex wound closure (60cm). #ARDS likely 2/2 pneumonia CTA: Thickening of interstitial septi and diffuse groundglass opacities with pleural effusions suggesting ARDS Started on Zosyn 3.375gm Q8H per ID (Dr. Bennett) and one dose of Vanc 1gm yesterday Changed triple lumen catheter today F/u blood, urine, and sputum cx Received one dose of lasix yesterday. D/c'ed fluids for now Incentive spirometry High flow oxygen therapy #Complex spinal pain 2/2 mechanical instability and myofascial decompensation s/ p multi-level spinal intervention, POD 7. Planned achilles lengthening procedure with ortho (Shein). Surgery deferred until due to fevers and hypoxia. Will cont to monitor. Pain management Scheduled IV tylenol Dilaudid STATE TESTED NURSING ASSISTANT pump Gabapentin 300mg TID Ativan 2mg Q6H PRN muscle spasms d/c'ed due to patients delirium and lethargy Zofran PRN PT eval daily. No bending, lifting (>5 lbs), or twisting for 9-12 months, f/ u 7-10 days after rehab d/c #Normocytic anemia Recent surgery, no sign of overt bleeding Hgb: 7.8 today Cont to monitor closely #Hypomagnesemia M.0 today Cont to monitor daily #FEN Monitor Mg and Hb Sodium controlled diet #Dispo: Surgery deferred until ARDS improves Monitor in ICU SNF Visit type - Emergency Visit Emergency Visit: No - New Patient This patient is new to me today: No - Critical Care Critical Care patient: Yes Total Critical Care Time (in minutes): 45 Critical Care Statement: The care of this patient involved high complexity decision making to prevent further life threatening deterioration of the patient 's condition and/or to evaluate & treat vital organ system(s) failure or risk of failure. ATTENDING PHYSICIAN STATEMENT I saw and evaluated the patient. I reviewed the resident's note and discussed the case with the resident. I agree with the resident's findings and plan as documented. SUBJECTIVE: OBJECTIVE: ASSESSMENT AND PLAN:
[2019-09-19] MEDS ORDERED: ACETAMINOPHEN 1000 MG/100 ML VIAL (NON FORMULARY) IVPB PRN (12:59)
[2019-09-19] MEDS ORDERED: PT OWN MED DRAWER 7, Y5N ONE (13:05)
--- NOTE | 2019-09-19 14:18 | PROC ---
Central Line Insertion Indication: CVP Monitoring, Poor Venous Access Risks and Benefits Explained: Yes Consent on Chart: Yes Central Line: Triple Lumen Catheter Anesthesia: 1% Lidocaine Sterile Technique: Yes Ultrasound Guided Assistance: Yes Position: Left Internal Jugular Post Insertion: Yes: Bilateral Breath Sounds, Bilateral Chest Expansion, Chest X-Ray Ordered Sterile Dressing Applied: Yes
--- NOTE | 2019-09-19 17:52 | PN ---
Progress Note, Physician History of Present Illness: TEMPS LOW GRADE BREATHING NON-LABORED ON HIGH FLOW O2 CT CHEST (-) PE ? ARDS? PNEUMONIA uRINE C/S PENDING - Current Medication List Current Medications: Active Medications Acetaminophen (Ofirmev Injection -) 1,000 mg IVPB Q6H PRN PRN Reason: FEVER Amitriptyline HCl (Elavil -) 100 mg PO HS COUNT INCLUDES [facility] Last Admin: 09/18/19 22:26 Dose: 100 mg Benzocaine/Menthol (Cepacol Lozenge -) 1 each MM PRN PRN PRN Reason: SORE THROAT Last Admin: 09/17/19 17:36 Dose: 1 each Dexamethasone Sodium Phosphate (Decadron Injection -) 4 mg IVPUSH ONCE PRN PRN Reason: NAUSEA AND/OR VOMITING Diphenhydramine HCl (Benadryl -) 50 mg PO BID COUNT INCLUDES [facility] Last Admin: 09/19/19 08:30 Dose: 50 mg Gabapentin (Neurontin -) 600 mg PO TID COUNT INCLUDES [facility] Last Admin: 09/19/19 14:00 Dose: 600 mg Hydromorphone HCl (Dilaudid -) 8 mg PO Q6H PRN PRN Reason: PAIN LEVEL 6-10 Piperacillin Sod/Tazobactam (Sod 3.375 gm/ Dextrose) 50 mls @ 100 mls/hr IVPB Q8H-IV COUNT INCLUDES THE [facility]; Protocol Last Admin: 09/19/19 10:07 Dose: 100 mls/hr Mupirocin (Bactroban 2% Ointment -) 1 applic TP BID COUNT INCLUDES [facility] Last Admin: 09/19/19 10:04 Dose: 1 applic Ondansetron HCl (Zofran Injection) 4 mg IVPUSH Q6H PRN PRN Reason: NAUSEA AND/OR VOMITING Last Admin: 09/13/19 20:27 Dose: 4 mg Ondansetron HCl (Zofran Injection) 4 mg IVPUSH Q4H PRN PRN Reason: NAUSEA AND/OR VOMITING Polyethylene Glycol (Miralax (For Daily Use) -) 17 gm PO BID COUNT INCLUDES [facility] Last Admin: 09/19/19 10:18 Dose: 17 grams Promethazine HCl (Phenergan Injection -) 12.5 mg IVPB Q6H PRN PRN Reason: NAUSEA AND/OR VOMITING - Objective Vital Signs: Vital Signs Temperature 99.8 F H 09/19/19 16:00 Pulse Rate 91 H 09/19/19 16:00 Respiratory Rate 21 H 09/19/19 16:00 Blood Pressure 108/65 09/19/19 16:00 O2 Sat by Pulse Oximetry (%) 94 L 09/19/19 16:21 Constitutional: Yes: No Distress Eyes: Yes: Conjunctiva Clear Cardiovascular: Yes: Regular Rate and Rhythm, S1, S2 Respiratory: Yes: Diminished Gastrointestinal: Yes: Normal Bowel Sounds, Soft. No: Tenderness Edema: No Labs: CBC, BMP 09/19/19 05:55 09/19/19 05:55 Assessment/Plan R/O PNEUMONIA/ ARDS UTI S/P LAMINECTOMY AWAIT C/S CONTINUE EMPIRIC ZOSYN
--- NOTE | 2019-09-19 19:25 | PN ---
Teaching Attending Note Name of Resident: Chanda Graham ATTENDING PHYSICIAN STATEMENT I saw and evaluated the patient. I reviewed the resident's note and discussed the case with the resident. I agree with the resident's findings and plan as documented. SUBJECTIVE: Drowsy, agitated, rousable but not able to participate in medical interview. OBJECTIVE: Ongoing fever T101.1. Hemodynamically Stable. Lethargic, agitated. Last Vital Signs Temp Pulse Resp BP Pulse Ox 98.6 F 81 18 100/55 L 98 09/19/19 17:51 09/19/19 17:51 09/19/19 17:51 09/19/19 17:51 09/19/19 17:52 Heart - S1, S2, RRR Lungs - bibasal crackles Abdomen - Soft, non-tender. Bowel Sounds normal. Extremities - no edema, no calf tenderness. Neuro - rousable, IRVING. Laboratory Results - last 24 hr 09/18/19 09/19/19 09/19/19 18:14 05:55 05:55 WBC 9.2 RBC 2.55 L Hgb 7.8 L Hct 22.9 L MCV 89.9 MCH 30.5 MCHC 33.9 RDW 14.5 Plt Count 499 H MPV 7.4 L Absolute Neuts (auto) 7.0 Neutrophils % 76.7 Lymphocytes % 12.7 Monocytes % 6.0 Eosinophils % 4.1 Basophils % 0.5 Nucleated RBC % 0 Sodium 142 Potassium 4.2 Chloride 106 Carbon Dioxide 28 Anion Gap 8 BUN 7.8 Creatinine 0.4 L Est GFR (CKD-EPI)AfAm 134.00 Est GFR (CKD-EPI)NonAf 115.62 Random Glucose 113 H Calcium 8.0 L Phosphorus 3.5 Magnesium 2.0 Total Bilirubin 0.6 AST 33 ALT 32 Alkaline Phosphatase 336 H Total Protein 5.5 L Albumin 1.8 L U Pathogenic Cast Auto Positive Current Medications Generic Name Dose Route Start Last Admin Trade Name Freq PRN Reason Stop Dose Admin Acetaminophen 1,000 mg 09/19/19 12:59 Ofirmev Injection - IVPB Q6H PRN FEVER Amitriptyline HCl 100 mg 09/10/19 16:26 09/18/19 22:26 Elavil - PO 100 mg HS [facility] Administration Benzocaine/Menthol 1 each 09/17/19 12:19 09/17/19 17:36 Cepacol Lozenge - MM 1 each PRN PRN Administration SORE THROAT Dexamethasone Sodium Phosphate 4 mg 09/11/19 18:40 Decadron Injection - IVPUSH ONCE PRN NAUSEA AND/OR VOMITING Diphenhydramine HCl 50 mg 09/15/19 10:00 09/19/19 08:30 Benadryl - PO 50 mg BID [facility]IE Administration Gabapentin 600 mg 09/13/19 14:00 09/19/19 14:00 Neurontin - PO 600 mg TID [facility]NIE Administration Hydromorphone HCl 8 mg 09/19/19 15:55 Dilaudid - PO Q6H PRN PAIN LEVEL 6-10 Piperacillin Sod/Tazobactam 50 mls @ 100 mls/hr 09/18/19 18:00 09/19/19 18:30 Sod 3.375 gm/ Dextrose IVPB 100 mls/hr Q8H-IV [facility]IE Administration Protocol Mupirocin 1 applic 09/15/19 10:45 09/19/19 10:04 Bactroban 2% Ointment - TP 1 applic BID [facility] Administration Ondansetron HCl 4 mg 09/09/19 16:47 09/13/19 20:27 Zofran Injection IVPUSH 4 mg Q6H PRN Administration NAUSEA AND/OR VOMITING Ondansetron HCl 4 mg 09/11/19 18:40 Zofran Injection IVPUSH Q4H PRN NAUSEA AND/OR VOMITING Polyethylene Glycol 17 gm 09/17/19 22:00 09/19/19 10:18 Miralax (For Daily Use) - PO 17 grams BID [facility] Administration Promethazine HCl 12.5 mg 09/11/19 18:43 Phenergan Injection - IVPB Q6H PRN NAUSEA AND/OR VOMITING Home Medications Medication Instructions Recorded Amitriptyline HCl [Elavil -] 50 mg PO HS 01/16/19 Oxycodone HCl 60 mg PO Q8H 01/16/19 HYDROmorphone [Dilaudid -] 8 mg PO Q6H PRN 03/04/19 Cyclobenzaprine HCl 1 tab PO TID 03/05/19 LORazepam [Ativan] 2 mg PO TID tablet MDD 6mg 03/11/19 Amitriptyline HCl 100 mg PO TID 09/06/19 Alprazolam [Xanax] 0.5 mg PO BID 09/12/19 Fluoxetine HCl 10 mg PO BID 09/12/19 Prednisone 5 mg PO QID 09/12/19 ASSESSMENT AND PLAN: 59 year old female with history of MS, recurrent lumbar spinal stenosis, s/p multiple back surgeries, complex global myofascial pain syndrome, mechanical thoracolumbar instability, admitted for spine surgery. POD 10 s/p 1. Inspection fusion mass (cervical spine). 2. T1, T2, T3 laminectomies. 3. C7 -T4 in situ fusion. 4. Inspection fusion mass (thoracolumbar spine). 5. Posterior instrumentation T8-S1. 6. Posterior arthrodesis T8-S1. 7. Bone allograft. 8. Bone autograft. 9. Complex wound closure 1. Paraparesis of lower extremities, complex spine pain secondary to mechanical axial instability and myofascial decompensation, progressive kyphoscoliosis secondary to thoracolumbar pseudarthrosis and progressive neurogenic bilateral equinus deformities with bilateral Achilles contractures s/p inspection fusion mass (cervical spine); T1, T2, T3 laminectomies; C7-T4 in situ fusion; inspection fusion mass (thoracolumbar spine); posterior instrumentation T8-S1; posterior arthrodesis T8-S1; bone allograft; bone autograft; complex wound closure (60cm) 09/09 Anesthesia asked to stop Dilaudid [employer] due to drowsiness and lethargy. Dilaudid PRN for pain management. Ativan held due to lethargy and agitation. Contiue Elavil, Neurontin. Further management as per Ortho. Deferral of Aguilar's procedure planned for achilles tendon release due to fever, mental status change and hypoxic resp failure. 2. Acute Hypoxic respiratory failure and Sepsis secondary to Pneumonia ?ARDS Requiring oxygen supplementation - now on high flow via NC. Low threshold for Intubation. CTA Chest neg for PE but shows bilateral interstitisl infiltrates + fluid ? Pneumonia +/- ARDS s/p IV lasix 40mg X 1 Blood Cx neg. Urine Cx pending. Started on IV Zosyn for HCAP and given 1 dose IV Vanco. Further Abx therapy as per ID Monitor respiratory status. 3. Acute Metabolic Encephalopathy secondary to Hypoxia + Sepsis Ativan held. Dilaudid [employer] held. Will monitor. No focal deficits. IRVING. Moving extremities. Neurology following. 4. Anemia - normocytic s/p spinal surgery. No evidence of ongoing blood loss Will monitor H/H and transfuse if necessary.
[2019-09-19] MEDS ORDERED: HYDROmorphone HCL 2 MG TABLET ONE (20:59)
[2019-09-19] MEDS: AMITRIPTYLINE HCL 25 MG TABLET (FP) PO SCH (21:04)
[2019-09-19] MEDS: MELATONIN 5 MG TABLETS PO PRN (21:06)
[2019-09-20] MEDS ORDERED: PIPERACILLIN/TAZOBACTAM 3.375 GM VIAL IVPB ONE ×3 (00:43→17:07)
[2019-09-20] MEDS ORDERED: DEXTROSE 5%-WATER - 50 ML IVPB ONE ×3 (00:43→17:07)
[2019-09-20] MEDS: PIPERACILLIN/TAZOB 3.375 GM 3.375 GM in DEXTROSE 5%-WATER - 50 ML IVPB SCH ×3 (01:01→17:28)
[2019-09-20 06:25] LABS: BASO % 0.3 % (0-2.0); EOS % 3.4 % (0-4.5); HEMATOCRIT 20.8 % (32.4-45.2); LYMPH % 13.3 % (8-40); MCH 29.8 pg (25.7-33.7); MEAN CELL VOLUME 90.4 fl (80-96); MEAN PLT VOLUME 7.3 fl (7.5-11.1); MONO % 3.9 % (3.8-10.2); NEUT % 79.1 % (42.8-82.8); PLATELET COUNT 432 K/MM3 (134-434); RDW 14.9 % (11.6-15.6); WHITE BLOOD COUNT 12.4 K/mm3 (4.0-10.0)
[2019-09-20] MEDS: GABAPENTIN 300 MG CAPSULE (FP) PO SCH ×3 (06:32→21:42)
[2019-09-20 07:11] LABS: HEMOGLOBIN 6.9 GM/dL (10.7-15.3)
[2019-09-20 07:34] LABS: ALBUMIN 1.6 g/dl (3.4-5.0); BILIRUBIN,TOTAL 0.4 mg/dL (0.2-1); BLOOD UREA NITROGEN 11.3 mg/dL (7-18); CALCIUM 7.8 mg/dL (8.5-10.1); CREATININE 0.4 mg/dL (0.55-1.3); POTASSIUM 3.4 mmol/L (3.5-5.1); TOT PROT 4.9 g/dl (6.4-8.2)
[2019-09-20] MEDS ORDERED: FUROSEMIDE 40 MG/4 ML INJECTABLE VIAL IVPUSH ONE (07:38)
[2019-09-20 07:47] LABS: ARTERIAL BLOOD GAS BASE EXCESS 5.7 meq/l (-2-2); ARTERIAL BLOOD GAS PCO2 50.1 mmHg (35-45); ARTERIAL BLOOD GAS PO2 148 mmHg (80-100)
[2019-09-20 07:52] LABS: ALLENS TEST POSITIVE
--- NOTE | 2019-09-20 08:50 | PN ---
Progress Note (short form) - Note Progress Note: Neurology HISTORY OF PRESENT ILLNESS: 59 y/o female with hx of multiple (~30) back and spine surgeries, complex global myofascial pain syndrome, recurrent spinal stenosis, multiple sclerosis, mechanical thoracolumbar instability, admitted for surgical intervention and per notes completed: 1) inspection fusion mass (c-spine), 2) T1-3 laminectomies, 3) C7-T4 in situ fusion, 4) Inspection fusion mass (thoracolumbar spine), 5) posterior instrumentation T8-S1, 6) posteroir arthrodesis T8-S1, 7) bone allograft, 8) bone autograft, 9) complex wound closure (60cm). 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 Complaints of pain and pain mgmt has been consulted. Extensive conversation regarding her MS history which dates back to >10 years and reports previously on BetaSeron but felt no difference. States last MRI brain was 1 year ago, offered repeat which patient would like to defer and reports prior imaging stable and states she will not be able to stay flat and tolerate procedure. She does not want to start on MS meds and would like to focus on spinal mgmt at this time. As outpatient, would advise MRI brain with and without contrast to start with. Was being plaaned for ruff slide bilterally for feet but with temperature spikes. This morning respiration seem to be normalized andjust using nasal cannula as opposed to face mask that she was requiring yesterday. No longer tachycardic also slightly hypotensive which she reports is her baseline blood pressure. Unclear of whether procedure will be completed but patient does appear to have spin stabilized in terms her respiratory status. Active Medications Acetaminophen (Ofirmev Injection -) 1,000 mg IVPB Q6H PRN PRN Reason: FEVER Last Admin: 09/20/19 04:42 Dose: 1,000 mg Amitriptyline HCl (Elavil -) 100 mg PO HS [facility] Last Admin: 09/19/19 21:04 Dose: 100 mg Benzocaine/Menthol (Cepacol Lozenge -) 1 each MM PRN PRN PRN Reason: SORE THROAT Last Admin: 09/17/19 17:36 Dose: 1 each Dexamethasone Sodium Phosphate (Decadron Injection -) 4 mg IVPUSH ONCE PRN PRN Reason: NAUSEA AND/OR VOMITING Diphenhydramine HCl (Benadryl -) 50 mg PO BID [facility] Last Admin: 09/19/19 21:03 Dose: 50 mg Gabapentin (Neurontin -) 600 mg PO TID [facility] Last Admin: 09/20/19 06:32 Dose: 600 mg Hydromorphone HCl (Dilaudid -) 8 mg PO Q6H PRN PRN Reason: PAIN LEVEL 6-10 Last Admin: 09/20/19 04:00 Dose: 8 mg Piperacillin Sod/Tazobactam (Sod 3.375 gm/ Dextrose) 50 mls @ 100 mls/hr IVPB Q8H-IV [facility]; Protocol Last Admin: 09/20/19 01:01 Dose: 100 mls/hr Melatonin (Melatonin) 10 mg PO HS PRN PRN Reason: INSOMNIA Last Admin: 09/19/19 21:06 Dose: 10 mg Mupirocin (Bactroban 2% Ointment -) 1 applic TP BID [facility] Last Admin: 09/19/19 21:02 Dose: 1 applic Ondansetron HCl (Zofran Injection) 4 mg IVPUSH Q6H PRN PRN Reason: NAUSEA AND/OR VOMITING Last Admin: 09/13/19 20:27 Dose: 4 mg Ondansetron HCl (Zofran Injection) 4 mg IVPUSH Q4H PRN PRN Reason: NAUSEA AND/OR VOMITING Polyethylene Glycol (Miralax (For Daily Use) -) 17 gm PO BID [facility] Last Admin: 09/19/19 21:22 Dose: 17 grams Potassium Chloride (Potassium Chloride 20 Meq Premix Ivpb -) 20 meq IVPB Q60M [facility] Stop: 09/20/19 09:46 Promethazine HCl (Phenergan Injection -) 12.5 mg IVPB Q6H PRN PRN Reason: NAUSEA AND/OR VOMITING PHYSICAL EXAMINATION Vital Signs Period Temp Pulse Resp BP Sys/Gallagher Pulse Ox Last 24 Hr 97.8 F-100.8 F 74-109 12-22 87-132/49-96 94-100 GENERAL: Awake, alert, and fully oriented, in no acute distress. HEAD: Normal with no signs of trauma. EYES: Pupils equal, round and reactive to light, extraocular movements intact, sclera anicteric, conjunctiva clear. No lid lag. EARS, NOSE, THROAT: Ears normal, nares patent, oropharynx clear without exudates. Moist mucous membranes. NECK: Normal range of motion, supple without lymphadenopathy, JVD, or masses. LUNGS: Breath sounds equal, clear to auscultation bilaterally. No wheezes, and no crackles. No accessory muscle use. HEART: Regular rate and rhythm, normal S1 and S2 without murmur, rub or gallop. ABDOMEN: Soft, nontender, not distended, normoactive bowel sounds, no guarding, no rebound, no masses. No hepatomegaly or splenomegaly. MUSCULOSKELETAL: Normal range of motion at all joints. No bony deformities or tenderness. No CVA tenderness. UPPER EXTREMITIES: 2+ pulses, warm, well-perfused. No cyanosis. No clubbing. Cap refill <2 seconds. No peripheral edema. LOWER EXTREMITIES: 2+ pulses, warm, well-perfused. No calf tenderness. No peripheral edema. NEUROLOGICAL: Cranial nerves II-XII intact. Normal speech. Normal gait. PSYCHIATRIC: Cooperative. Good eye contact. Appropriate mood and affect. SKIN: Warm, dry, normal turgor, no rashes or lesions noted. CBCD WBC 12.4 K/mm3 (4.0-10.0) H 09/20/19 05:35 RBC 2.30 M/mm3 (3.60-5.2) L 09/20/19 05:35 Hgb 6.9 GM/dL (10.7-15.3) L* 09/20/19 05:35 Hct 20.8 % (32.4-45.2) L 09/20/19 05:35 MCV 90.4 fl (80-96) 09/20/19 05:35 MCHC 33.0 g/dl (32.0-36.0) 09/20/19 05:35 RDW 14.9 % (11.6-15.6) 09/20/19 05:35 Plt Count 432 K/MM3 (134-434) 09/20/19 05:35 MPV 7.3 fl (7.5-11.1) L 09/20/19 05:35 CMP Sodium 141 mmol/L (136-145) 09/20/19 05:35 Potassium 3.4 mmol/L (3.5-5.1) L 09/20/19 05:35 Chloride 104 mmol/L (98-107) 09/20/19 05:35 Carbon Dioxide 31 mmol/L (21-32) 09/20/19 05:35 Anion Gap 6 MMOL/L (8-16) L 09/20/19 05:35 BUN 11.3 mg/dL (7-18) 09/20/19 05:35 Creatinine 0.4 mg/dL (0.55-1.3) L 09/20/19 05:35 Random Glucose 86 mg/dL (74-106) 09/20/19 05:35 Calcium 7.8 mg/dL (8.5-10.1) L 09/20/19 05:35 Total Bilirubin 0.4 mg/dL (0.2-1) 09/20/19 05:35 AST 75 U/L (15-37) H 09/20/19 05:35 ALT 60 U/L (13-61) 09/20/19 05:35 Alkaline Phosphatase 401 U/L (45-117) H 09/20/19 05:35 Total Protein 4.9 g/dl (6.4-8.2) L 09/20/19 05:35 Albumin 1.6 g/dl (3.4-5.0) L 09/20/19 05:35 ASSESSMENT/PLAN: 59 y/o female with hx of multiple (~30) back and spine surgeries, complex global myofascial pain syndrome, recurrent spinal stenosis, multiple sclerosis, mechanical thoracolumbar instability, POD #0 s/p 1) inspection fusion mass (c- spine), 2) T1-3 laminectomies, 3) C7-T4 in situ fusion, 4) Inspection fusion mass (thoracolumbar spine), 5) posterior instrumentation T8-S1, 6) posteroir arthrodesis T8-S1, 7) bone allograft, 8) bone autograft, 9) complex wound closure (60cm). 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 Complaints of pain and pain mgmt has been consulted. Extensive conversation regarding her MS history which dates back to > 10 years and reports previously on BetaSeron but felt no difference. States last MRI brain was 1 year ago, offered repeat which patient would like to defer and reports prior imaging stable and states she will not be able to stay flat and tolerate procedure. She does not want to start on MS meds and would like to focus on spinal mgmt at this time. As outpatient, would advise MRI brain with and without contrast to start with. Was being plaaned for ruff slide bilterally for feet but with temperature spikes. This morning respiration seem to be normalized andjust using nasal cannula as opposed to face mask that she was requiring yesterday. No longer tachycardic also slightly hypotensive which she reports is her baseline blood pressure. Unclear of whether procedure will be completed but patient does appear to have spin stabilized in terms her respiratory status. continue orthopedic follow-up, caution with pain medications , continue monitor respiratory optimization. Critical care time 35 mins.
[2019-09-20] MEDS: POTASSIUM CHLORIDE 20 MEQ PREMIX IVPB 100 ML IVPB SCH ×2 (09:40→11:33)
[2019-09-20] MEDS: MUPIROCIN 2% TOPICAL OINTMENT 22 GM TUBE TP SCH ×2 (09:43→21:44)
[2019-09-20] MEDS: diphenhydrAMINE HCL 25 MG CAPSULE (FP) PO SCH ×2 (09:43→21:42)
[2019-09-20] MEDS: POLYETHYLENE GLYCOL 3350 119 GM BTL PO SCH ×2 (09:54→21:44)
--- NOTE | 2019-09-20 10:56 | PN ---
Teaching Attending Note Name of Resident: Meir Harmon ATTENDING PHYSICIAN STATEMENT I saw and evaluated the patient. I reviewed the resident's note and discussed the case with the resident. I agree with the resident's findings and plan as documented. SUBJECTIVE: Patient seen and examined in the ICU. More awake and alert today. WOB improved on HFOT, 65% FiO2 and 50 L. Some dry cough. No hemoptysis. CXR: some clearing of bilateral infiltrates at the right base OBJECTIVE: Intake & Output 09/17/19 09/18/19 09/19/19 09/20/19 23:59 23:59 23:59 23:59 Intake Total 1370 2250 250 250 Output Total 2800 2200 2300 1000 Balance -1430 50 -2050 -750 Weight 210 lb 8 oz 214 lb 2 oz 214 lb 8 oz 214 lb 9.6 oz Last Vital Signs Temp Pulse Resp BP Pulse Ox 98.0 F 80 16 89/52 L 100 09/20/19 10:00 09/20/19 10:00 09/20/19 10:00 09/20/19 10:00 09/20/19 10:00 Active Medications Acetaminophen (Ofirmev Injection -) 1,000 mg IVPB Q6H PRN PRN Reason: FEVER Last Admin: 09/20/19 04:42 Dose: 1,000 mg Amitriptyline HCl (Elavil -) 100 mg PO HS [facility] Last Admin: 09/19/19 21:04 Dose: 100 mg Benzocaine/Menthol (Cepacol Lozenge -) 1 each MM PRN PRN PRN Reason: SORE THROAT Last Admin: 09/17/19 17:36 Dose: 1 each Dexamethasone Sodium Phosphate (Decadron Injection -) 4 mg IVPUSH ONCE PRN PRN Reason: NAUSEA AND/OR VOMITING Diphenhydramine HCl (Benadryl -) 50 mg PO BID [facility] Last Admin: 09/20/19 09:43 Dose: 50 mg Gabapentin (Neurontin -) 600 mg PO TID [facility] Last Admin: 09/20/19 06:32 Dose: 600 mg Hydromorphone HCl (Dilaudid -) 8 mg PO Q6H PRN PRN Reason: PAIN LEVEL 6-10 Last Admin: 09/20/19 04:00 Dose: 8 mg Piperacillin Sod/Tazobactam (Sod 3.375 gm/ Dextrose) 50 mls @ 100 mls/hr IVPB Q8H-IV [facility]; Protocol Last Admin: 09/20/19 09:40 Dose: 100 mls/hr Melatonin (Melatonin) 10 mg PO HS PRN PRN Reason: INSOMNIA Last Admin: 09/19/19 21:06 Dose: 10 mg Mupirocin (Bactroban 2% Ointment -) 1 applic TP BID [facility] Last Admin: 09/20/19 09:43 Dose: 1 applic Ondansetron HCl (Zofran Injection) 4 mg IVPUSH Q6H PRN PRN Reason: NAUSEA AND/OR VOMITING Last Admin: 09/13/19 20:27 Dose: 4 mg Ondansetron HCl (Zofran Injection) 4 mg IVPUSH Q4H PRN PRN Reason: NAUSEA AND/OR VOMITING Polyethylene Glycol (Miralax (For Daily Use) -) 17 gm PO BID [facility] Last Admin: 09/20/19 09:54 Dose: Not Given Promethazine HCl (Phenergan Injection -) 12.5 mg IVPB Q6H PRN PRN Reason: NAUSEA AND/OR VOMITING Gen: Awake and alert, NAD on HFOT Heart: RRR Lung: decreasing bilateral crackles, no wheeze Abd: soft, nontender Ext: no edema Laboratory Results - last 24 hr 09/20/19 09/20/19 09/20/19 05:35 05:35 07:30 WBC 12.4 H RBC 2.30 L Hgb 6.9 L* Hct 20.8 L MCV 90.4 MCH 29.8 MCHC 33.0 RDW 14.9 Plt Count 432 MPV 7.3 L Absolute Neuts (auto) 9.8 H Neutrophils % 79.1 Lymphocytes % 13.3 Monocytes % 3.9 Eosinophils % 3.4 Basophils % 0.3 Nucleated RBC % 0 Anticoagulation Therapy No Result Required. Puncture Site Right brachial ABG pH 7.40 ABG pCO2 at Pt Temp 50.1 H ABG pO2 at Pt Temp 148 H ABG HCO3 30.6 H ABG O2 Sat (Measured) 99.0 H ABG O2 Content 11.0 ABG Base Excess 5.7 H P[place]ito Test Positive O2 Delivery Device No Result Required. Oxygen Flow Rate Unk Vent Mode No Result Required. Vent Rate No Result Required. Mechanical Rate No Result Required. Pressure Support Vent No Result Required. Sodium 141 Potassium 3.4 L Chloride 104 Carbon Dioxide 31 Anion Gap 6 L BUN 11.3 Creatinine 0.4 L Est GFR (CKD-EPI)AfAm 134.00 Est GFR (CKD-EPI)NonAf 115.62 Random Glucose 86 Calcium 7.8 L Total Bilirubin 0.4 AST 75 H ALT 60 Alkaline Phosphatase 401 H Total Protein 4.9 L Albumin 1.6 L ASSESSMENT AND PLAN: ARDS: clinically improved today R/O PNA Progressive Kyphoscoliosis s/p T1-T3 Laminectomies/C7-T4 Fusion/T8-S1 Posterior Instrumentation/Arthrodesis Anemia Volume Overload Fevers No evidence of PE - Wean HFOT as tolerated - ABX per ID - Follow CVP, goal 4 if hemodynamics are stable - f/u pending cultures - pain control - incentive spirometry - PO as tolerated - Lasix today - activity/diet/DVT prophylaxis per surgery - ICU monitoring for tenuous status Dr Garza
--- NOTE | 2019-09-20 11:24 | PN ---
Physical Exam: SUBJECTIVE: Patient seen and examined at bedside. States she is feeling better than yesterday. Breathing is comfortable. States her pain is well controlled for now. No fevers overnight. OBJECTIVE: Vital Signs Period Temp Pulse Resp BP Sys/Gallagher Pulse Ox Last 24 Hr 97.8 F-99.8 F 74-109 12-22 87-132/49-96 94-100 GENERAL: The patient is awake, alert, and fully oriented. Pain is well controlled. HEAD: NC/AT EYES: PERRL, EOMI. no scleral icterus. NECK: Trachea midline, full range of motion, supple. LUNGS: Coarse breath sounds bilaterally, no wheezes. No accessory muscle use. Improved work of breathing compared to yesterday. HEART: Regular rate and rhythm, S1, S2 without murmur, rub or gallop. ABDOMEN: Soft, nontender, nondistended, normoactive bowel sounds, no guarding, no rebound. EXTREMITIES: 2+ pulses, warm, well-perfused, no edema. NEUROLOGICAL: Normal speech, gait not observed. PSYCH: Normal mood, normal affect. SKIN: Warm, dry, normal turgor, no rashes or lesions noted Laboratory Results - last 24 hr 09/20/19 09/20/19 09/20/19 05:35 05:35 07:30 WBC 12.4 H RBC 2.30 L Hgb 6.9 L* Hct 20.8 L MCV 90.4 MCH 29.8 MCHC 33.0 RDW 14.9 Plt Count 432 MPV 7.3 L Absolute Neuts (auto) 9.8 H Neutrophils % 79.1 Lymphocytes % 13.3 Monocytes % 3.9 Eosinophils % 3.4 Basophils % 0.3 Nucleated RBC % 0 Anticoagulation Therapy No Result Required. Puncture Site Right brachial ABG pH 7.40 ABG pCO2 at Pt Temp 50.1 H ABG pO2 at Pt Temp 148 H ABG HCO3 30.6 H ABG O2 Sat (Measured) 99.0 H ABG O2 Content 11.0 ABG Base Excess 5.7 H Pablito Test Positive O2 Delivery Device No Result Required. Oxygen Flow Rate Unk Vent Mode No Result Required. Vent Rate No Result Required. Mechanical Rate No Result Required. Pressure Support Vent No Result Required. Sodium 141 Potassium 3.4 L Chloride 104 Carbon Dioxide 31 Anion Gap 6 L BUN 11.3 Creatinine 0.4 L Est GFR (CKD-EPI)AfAm 134.00 Est GFR (CKD-EPI)NonAf 115.62 Random Glucose 86 Calcium 7.8 L Total Bilirubin 0.4 AST 75 H ALT 60 Alkaline Phosphatase 401 H Total Protein 4.9 L Albumin 1.6 L Active Medications Generic Name Dose Route Start Last Admin Trade Name Freq PRN Reason Stop Dose Admin Acetaminophen 1,000 mg 09/19/19 12:59 09/20/19 04:42 Ofirmev Injection - IVPB 1,000 mg Q6H PRN Administration FEVER Amitriptyline HCl 100 mg 09/10/19 16:26 09/19/19 21:04 Elavil - PO 100 mg HS ARNIE Administration Benzocaine/Menthol 1 each 09/17/19 12:19 09/17/19 17:36 Cepacol Lozenge - MM 1 each PRN PRN Administration SORE THROAT Dexamethasone Sodium Phosphate 4 mg 09/11/19 18:40 Decadron Injection - IVPUSH ONCE PRN NAUSEA AND/OR VOMITING Diphenhydramine HCl 50 mg 09/15/19 10:00 09/20/19 09:43 Benadryl - PO 50 mg BID ARNIE Administration Gabapentin 600 mg 09/13/19 14:00 09/20/19 06:32 Neurontin - PO 600 mg TID ARNIE Administration Hydromorphone HCl 8 mg 09/19/19 15:55 09/20/19 04:00 Dilaudid - PO 8 mg Q6H PRN Administration PAIN LEVEL 6-10 Piperacillin Sod/Tazobactam 50 mls @ 100 mls/hr 09/18/19 18:00 09/20/19 09:40 Sod 3.375 gm/ Dextrose IVPB 100 mls/hr Q8H-IV ARNIE Administration Protocol Melatonin 10 mg 09/19/19 19:22 09/19/19 21:06 Melatonin PO 10 mg HS PRN Administration INSOMNIA Mupirocin 1 applic 09/15/19 10:45 09/20/19 09:43 Bactroban 2% Ointment - TP 1 applic BID ARNIE Administration Ondansetron HCl 4 mg 09/09/19 16:47 09/13/19 20:27 Zofran Injection IVPUSH 4 mg Q6H PRN Administration NAUSEA AND/OR VOMITING Ondansetron HCl 4 mg 09/11/19 18:40 Zofran Injection IVPUSH Q4H PRN NAUSEA AND/OR VOMITING Polyethylene Glycol 17 gm 09/17/19 22:00 09/20/19 09:54 Miralax (For Daily Use) - PO Not Given BID ARNIE Promethazine HCl 12.5 mg 09/11/19 18:43 Phenergan Injection - IVPB Q6H PRN NAUSEA AND/OR VOMITING ASSESSMENT/PLAN: 59 y/o/f with PMhx of multiple (~30) back and spine surgeries, complex global myofascial pain syndrome, recurrent spinal stenosis, multiple sclerosis, mechanical thoracolumbar instability, s/p 1) inspection fusion mass (c-spine), 2 ) T1-3 laminectomies, 3) C7-T4 in situ fusion, 4) Inspection fusion mass ( thoracolumbar spine), 5) posterior instrumentation T8-S1, 6) posteroir arthrodesis T8-S1, 7) bone allograft, 8) bone autograft, 9) complex wound closure (60cm). POD#10. #Respiratory - Suspecting ARDS. Repeat CXR today read by radiology as worse but clinically patient looks better. - CTA: diffuse fibrosis concerning for pneumonia/edema. No PE/dissection - Lasix 40mg IVPUSH once yesterday, once today. - On Hi flow oxygen 65%. Will attempt to decrease oxygen percentage and see how patient responds. 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 Pain well controlled for now. - Benadryl 50mg PO BID - Amytriptyline 100mg PO HS - Pain: Ofirmev 1000mg IV Q6H PRN - Nausea: Promethazine 12.5mg IV Q6H PRN and Zofran 4mg IV Q4H - Neuro on board #Ortho - Aguilar's slide procedure pending improvement - Gabapentin 600mg PO TID - PT eval daily: No bending, lifting (>5 lbs), or twisting for 9-12 months, f/u 7-10 days after rehab d/c #ID - Patient remained afebrile overnight. - WBC 11.0 -> 10.5 -> 8.5 -> 10.1 -> 9.2 -> 12.4 - Blood cx from 09/17 show no growth. - Zosyn 3.375mg Q8H day 3 - 1x Vanco 1gm - ID on board #GI - Alk Phos 100 -> 165 -> 216 -> 306 -> 336 -> 401 - Miralax 17mg BID - Stool Occult blood test negative. #Renal - Repeat UA on 09/18: 1+ blood, 2+ LE with 1k bacteria and 337 WBC. protein 1+. Nitrite + - BUN/Cr 9.4/0.4 -> 8.8/0.4 -> 7.8/0.4 -> 11.3/0.4 - I/O monitoring #Heme - Hg/Hct 7.8/23.1 -> 7.8/22.9 -> 6.9/20.8 -> 7.6/23.9 - Will hold off on transfusion as repeat CBC shows improved Hgb. Monitor with morning CBC #FEN - IVF discontinued as patient appeared to be fluid overloaded. - Cholesterol controlled diet, as tolerated #DVT PE - SCDs - Duplex B/L showed no evidence of DVT #Dispo: - Continue ICU monitoring Visit type - Emergency Visit Emergency Visit: No - New Patient This patient is new to me today: No - Critical Care Critical Care patient: Yes Total Critical Care Time (in minutes): 36 Critical Care Statement: The care of this patient involved high complexity decision making to prevent further life threatening deterioration of the patient 's condition and/or to evaluate & treat vital organ system(s) failure or risk of failure. ATTENDING PHYSICIAN STATEMENT I saw and evaluated the patient. I reviewed the resident's note and discussed the case with the resident. I agree with the resident's findings and plan as documented. SUBJECTIVE: OBJECTIVE: ASSESSMENT AND PLAN:
--- NOTE | 2019-09-20 11:55 | PN ---
Physical Exam: SUBJECTIVE: Patient seen and examined. Breathing and mental status is improved. She denies any chest pain. OBJECTIVE: Vital Signs Period Temp Pulse Resp BP Sys/Gallagher Pulse Ox Last 24 Hr 97.8 F-99.8 F 74-109 12- 87-132/49-96 94-100 GENERAL: The patient is awake, alert, and fully oriented, in no acute distress. Mildy lethargic. HEAD: Normal with no signs of trauma. EYES: PERRL, extraocular movements intact, sclera anicteric, conjunctiva clear. No ptosis. ENT: Ears normal, nares patent, oropharynx clear without exudates, moist mucous membranes. NECK: Trachea midline, full range of motion, supple. LUNGS: Bibasilar crackles and diffuse wheezes. HEART: Regular rate and rhythm, S1, S2 without murmur, rub or gallop. ABDOMEN: Soft, nontender, nondistended, normoactive bowel sounds, no guarding, no rebound, no hepatosplenomegaly, no masses. EXTREMITIES: 2+ pulses, warm, well-perfused, no edema. NEUROLOGICAL: Cranial nerves II through XII grossly intact. Normal speech, gait not observed. PSYCH: Normal mood, normal affect. SKIN: Warm, dry, normal turgor, no rashes or lesions noted Laboratory Results - last 24 hr CBC, BMP 09/20/19 05:35 09/20/19 05:35 Active Medications Acetaminophen (Ofirmev Injection -) 1,000 mg IVPB Q6H PRN PRN Reason: FEVER Last Admin: 09/20/19 04:42 Dose: 1,000 mg Amitriptyline HCl (Elavil -) 100 mg PO HS [facility] Last Admin: 09/19/19 21:04 Dose: 100 mg Benzocaine/Menthol (Cepacol Lozenge -) 1 each MM PRN PRN PRN Reason: SORE THROAT Last Admin: 09/17/19 17:36 Dose: 1 each Dexamethasone Sodium Phosphate (Decadron Injection -) 4 mg IVPUSH ONCE PRN PRN Reason: NAUSEA AND/OR VOMITING Diphenhydramine HCl (Benadryl -) 50 mg PO BID [facility] Last Admin: 09/20/19 09:43 Dose: 50 mg Gabapentin (Neurontin -) 600 mg PO TID [facility] Last Admin: 09/20/19 06:32 Dose: 600 mg Hydromorphone HCl (Dilaudid -) 8 mg PO Q6H PRN PRN Reason: PAIN LEVEL 6-10 Last Admin: 09/20/19 11:33 Dose: 8 mg Piperacillin Sod/Tazobactam (Sod 3.375 gm/ Dextrose) 50 mls @ 100 mls/hr IVPB Q8H-IV ARNIE; Protocol Last Admin: 09/20/19 09:40 Dose: 100 mls/hr Melatonin (Melatonin) 10 mg PO HS PRN PRN Reason: INSOMNIA Last Admin: 09/19/19 21:06 Dose: 10 mg Mupirocin (Bactroban 2% Ointment -) 1 applic TP BID ARNIE Last Admin: 09/20/19 09:43 Dose: 1 applic Ondansetron HCl (Zofran Injection) 4 mg IVPUSH Q6H PRN PRN Reason: NAUSEA AND/OR VOMITING Last Admin: 09/13/19 20:27 Dose: 4 mg Ondansetron HCl (Zofran Injection) 4 mg IVPUSH Q4H PRN PRN Reason: NAUSEA AND/OR VOMITING Polyethylene Glycol (Miralax (For Daily Use) -) 17 gm PO BID ARNIE Last Admin: 09/20/19 09:54 Dose: Not Given Promethazine HCl (Phenergan Injection -) 12.5 mg IVPB Q6H PRN PRN Reason: NAUSEA AND/OR VOMITING ASSESSMENT/PLAN: Ms. Tafoya is a 59y/o female with multiple (~30) back and spine surgeries, complex global myofascial pain syndrome, recurrent spinal stenosis, multiple sclerosis, and mechanical thoracolumbar instability who presents for spinal surgery. #ARDS likely 2/2 pneumonia CTA (09/18): Thickening of interstitial septi and diffuse groundglass opacities with pleural effusions suggesting ARDS CXR (09/20): Worsening of ARDS Zosyn 3.375gm Q8H per ID (Dr. Bennett) on Day 3, one dose vancomycin given 2 days ago Changed triple lumen catheter today F/u blood, urine, and sputum cx Received one dose of lasix 2 days ago. D/c'ed fluids for now Incentive spirometry High flow oxygen therapy, breathing well #Complex spinal pain 2/2 mechanical instability and myofascial decompensation s/ p multi-level spinal intervention, POD 7. Planned achilles lengthening procedure with ortho (Shein). Surgery deferred until due to fevers and hypoxia. Will cont to monitor. 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 Resumed home med Dilaudid 8mg PO Q6H PRN. Pain well controlled for now Gabapentin 300mg TID Ativan 2mg Q6H PRN muscle spasms d/c'ed due to patients delirium and lethargy Zofran PRN PT eval daily. No bending, lifting (>5 lbs), or twisting for 9-12 months, f/ u 7-10 days after rehab d/c #Normocytic anemia Hgb: 6.9 this am, repeat 7.6 FOBT: negative Hold off on units for now Cont to monitor closely #Hypomagnesemia M.0 today Cont to monitor daily #FEN Monitor Mg and Hb Sodium controlled diet #Dispo: Surgery deferred until ARDS improves Monitor in ICU SNF Visit type - Emergency Visit Emergency Visit: No - New Patient This patient is new to me today: No - Critical Care Critical Care patient: Yes Total Critical Care Time (in minutes): 45 Critical Care Statement: The care of this patient involved high complexity decision making to prevent further life threatening deterioration of the patient 's condition and/or to evaluate & treat vital organ system(s) failure or risk of failure. ATTENDING PHYSICIAN STATEMENT I saw and evaluated the patient. I reviewed the resident's note and discussed the case with the resident. I agree with the resident's findings and plan as documented. SUBJECTIVE: OBJECTIVE: ASSESSMENT AND PLAN:
[2019-09-20 13:16] LABS: BASO % 0.3 % (0-2.0); EOS % 4.6 % (0-4.5); HEMATOCRIT 23.9 % (32.4-45.2); HEMOGLOBIN 7.6 GM/dL (10.7-15.3); LYMPH % 10.6 % (8-40); MCHC 31.9 g/dl (32.0-36.0); MEAN CELL VOLUME 90.9 fl (80-96); MEAN PLT VOLUME 7.4 fl (7.5-11.1); MONO % 3.7 % (3.8-10.2); NEUT % 80.8 % (42.8-82.8); PLATELET COUNT 502 K/MM3 (134-434); RBC 2.63 M/mm3 (3.60-5.2); RDW 14.7 % (11.6-15.6); WHITE BLOOD COUNT 11.7 K/mm3 (4.0-10.0)
[2019-09-20] MEDS ORDERED: LORazepam 2 MG/ML SDV VIAL ONE (13:56)
[2019-09-20] MEDS: ACETAMINOPHEN 1000 MG/100 ML VIAL (NON FORMULARY) IVPB PRN ×2 (14:40→21:45)
[2019-09-20] MEDS ORDERED: LORazepam 2 MG/ML SDV VIAL IVPUSH ONE (14:45)
--- NOTE | 2019-09-20 16:04 | PN ---
Teaching Attending Note Name of Resident: Chanda Graham ATTENDING PHYSICIAN STATEMENT I saw and evaluated the patient. I reviewed the resident's note and discussed the case with the resident. I agree with the resident's findings and plan as documented. SUBJECTIVE: More awake, alert, responsive, answers questions appropriately. Lethargy and agitation resolved. No complaints. OBJECTIVE: Fever resolved. Hemodynamically Stable. AAO x 3. SpO2 100% on High Flow O2 via NC, FiO2 65% Last Vital Signs Temp Pulse Resp BP Pulse Ox 98.5 F 80 16 92/48 L 100 09/20/19 14:00 09/20/19 14:00 09/20/19 14:00 09/20/19 14:00 09/20/19 10:00 Heart - S1, S2, RRR Lungs - bilateral lower zone crackles Abdomen - Soft, non-tender. Bowel Sounds normal. Extremities - no edema, no calf tenderness. Neuro - AAO x 3. Moving all extremities. Laboratory Results - last 24 hr 09/20/19 09/20/19 09/20/19 05:35 05:35 07:30 WBC 12.4 H RBC 2.30 L Hgb 6.9 L* Hct 20.8 L MCV 90.4 MCH 29.8 MCHC 33.0 RDW 14.9 Plt Count 432 MPV 7.3 L Absolute Neuts (auto) 9.8 H Neutrophils % 79.1 Lymphocytes % 13.3 Monocytes % 3.9 Eosinophils % 3.4 Basophils % 0.3 Nucleated RBC % 0 Anticoagulation Therapy No Result Required. Puncture Site Right brachial ABG pH 7.40 ABG pCO2 at Pt Temp 50.1 H ABG pO2 at Pt Temp 148 H ABG HCO3 30.6 H ABG O2 Sat (Measured) 99.0 H ABG O2 Content 11.0 ABG Base Excess 5.7 H Pablito Test Positive O2 Delivery Device No Result Required. Oxygen Flow Rate Unk Vent Mode No Result Required. Vent Rate No Result Required. Mechanical Rate No Result Required. Pressure Support Vent No Result Required. Sodium 141 Potassium 3.4 L Chloride 104 Carbon Dioxide 31 Anion Gap 6 L BUN 11.3 Creatinine 0.4 L Est GFR (CKD-EPI)AfAm 134.00 Est GFR (CKD-EPI)NonAf 115.62 Random Glucose 86 Calcium 7.8 L Total Bilirubin 0.4 AST 75 H ALT 60 Alkaline Phosphatase 401 H Total Protein 4.9 L Albumin 1.6 L Stool Occult Blood 09/20/19 09/20/19 11:20 12:55 WBC 11.7 H RBC 2.63 L Hgb 7.6 L Hct 23.9 L MCV 90.9 MCH 29.0 MCHC 31.9 L RDW 14.7 Plt Count 502 H MPV 7.4 L Absolute Neuts (auto) 9.4 H Neutrophils % 80.8 Lymphocytes % 10.6 D Monocytes % 3.7 L Eosinophils % 4.6 H Basophils % 0.3 Nucleated RBC % 0 Anticoagulation Therapy Puncture Site ABG pH ABG pCO2 at Pt Temp ABG pO2 at Pt Temp ABG HCO3 ABG O2 Sat (Measured) ABG O2 Content ABG Base Excess Pablito Test O2 Delivery Device Oxygen Flow Rate Vent Mode Vent Rate Mechanical Rate Pressure Support Vent Sodium Potassium Chloride Carbon Dioxide Anion Gap BUN Creatinine Est GFR (CKD-EPI)AfAm Est GFR (CKD-EPI)NonAf Random Glucose Calcium Total Bilirubin AST ALT Alkaline Phosphatase Total Protein Albumin Stool Occult Blood Negative Current Medications Generic Name Dose Route Start Last Admin Trade Name Freq PRN Reason Stop Dose Admin Acetaminophen 1,000 mg 09/20/19 13:43 09/20/19 14:40 Ofirmev Injection - IVPB 1,000 mg Q6H PRN Administration Fever or pain Amitriptyline HCl 100 mg 09/10/19 16:26 09/19/19 21:04 Elavil - PO 100 mg HS ARNIE Administration Benzocaine/Menthol 1 each 09/17/19 12:19 09/17/19 17:36 Cepacol Lozenge - MM 1 each PRN PRN Administration SORE THROAT Dexamethasone Sodium Phosphate 4 mg 09/11/19 18:40 Decadron Injection - IVPUSH ONCE PRN NAUSEA AND/OR VOMITING Diphenhydramine HCl 50 mg 09/15/19 10:00 09/20/19 09:43 Benadryl - PO 50 mg BID ARNIE Administration Gabapentin 600 mg 09/13/19 14:00 09/20/19 13:27 Neurontin - PO 600 mg TID ARNIE Administration Hydromorphone HCl 8 mg 09/19/19 15:55 09/20/19 11:33 Dilaudid - PO 8 mg Q6H PRN Administration PAIN LEVEL 6-10 Piperacillin Sod/Tazobactam 50 mls @ 100 mls/hr 09/18/19 18:00 09/20/19 09:40 Sod 3.375 gm/ Dextrose IVPB 100 mls/hr Q8H-IV ARNIE Administration Protocol Melatonin 10 mg 09/19/19 19:22 09/19/19 21:06 Melatonin PO 10 mg HS PRN Administration INSOMNIA Mupirocin 1 applic 09/15/19 10:45 09/20/19 09:43 Bactroban 2% Ointment - TP 1 applic BID ARNIE Administration Ondansetron HCl 4 mg 09/09/19 16:47 09/13/19 20:27 Zofran Injection IVPUSH 4 mg Q6H PRN Administration NAUSEA AND/OR VOMITING Ondansetron HCl 4 mg 09/11/19 18:40 Zofran Injection IVPUSH Q4H PRN NAUSEA AND/OR VOMITING Polyethylene Glycol 17 gm 09/17/19 22:00 09/20/19 09:54 Miralax (For Daily Use) - PO Not Given BID ARNIE Promethazine HCl 12.5 mg 09/11/19 18:43 Phenergan Injection - IVPB Q6H PRN NAUSEA AND/OR VOMITING Home Medications Medication Instructions Recorded Amitriptyline HCl [Elavil -] 50 mg PO HS 01/16/19 Oxycodone HCl 60 mg PO Q8H 01/16/19 HYDROmorphone [Dilaudid -] 8 mg PO Q6H PRN 03/04/19 Cyclobenzaprine HCl 1 tab PO TID 03/05/19 LORazepam [Ativan] 2 mg PO TID tablet MDD 6mg 03/11/19 Amitriptyline HCl 100 mg PO TID 09/06/19 Alprazolam [Xanax] 0.5 mg PO BID 09/12/19 Fluoxetine HCl 10 mg PO BID 09/12/19 Prednisone 5 mg PO QID 09/12/19 ASSESSMENT AND PLAN: 59 year old female with history of MS, recurrent lumbar spinal stenosis, s/p multiple back surgeries, complex global myofascial pain syndrome, mechanical thoracolumbar instability, admitted for spine surgery. POD 11 s/p 1. Inspection fusion mass (cervical spine). 2. T1, T2, T3 laminectomies. 3. C7 -T4 in situ fusion. 4. Inspection fusion mass (thoracolumbar spine). 5. Posterior instrumentation T8-S1. 6. Posterior arthrodesis T8-S1. 7. Bone allograft. 8. Bone autograft. 9. Complex wound closure 1. 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 Dilaudid PRN for pain management. Contiue Elavil, Neurontin, Atvan PRN Further management as per Ortho. Deferral of Aguilar's procedure planned for achilles tendon release due to fever, mental status change and hypoxic resp failure. 2. Acute Hypoxic respiratory failure and Sepsis secondary to Pneumonia +/- ARDS Requiring oxygen supplementation - continue high flow via NC. Clinically improving. CTA Chest neg for PE but shows bilateral interstitial infiltrates + fluid ? Pneumonia +/- ARDS Responding to daily IV lasix 40mg Blood Cx neg. Urine Cx contaminated. Started on IV Zosyn for HCAP and given 1 dose IV Vanco 09/19. Further Abx therapy as per ID Monitor respiratory status. 3. Acute Metabolic Encephalopathy secondary to Hypoxia + Sepsis - much improved/ significantly resolved. AAO x 3 today, agitation/confusion resolved. Dilaudid CLEARING SUPERVISOR held. Will monitor. No focal deficits. IRVING. Moving extremities. Neurology following. 4. Anemia - normocytic s/p spinal surgery. No evidence of ongoing blood loss Will monitor H/H and transfuse if necessary. 5. Hypokalemia - repleted. DVT Px - SCDs
[2019-09-20] MEDS ORDERED: POTASSIUM CHLORIDE TABS 20 MEQ TABLET.ER (FP) PO ONE (16:35)
--- NOTE | 2019-09-20 19:32 | PN ---
Progress Note, Physician History of Present Illness: MUCH MORE AWAKE AND ALERT\ OFFERS NO COMPLAINTS TEMPS DOWN AFEBRILE BREATHING NON-LABORED ON HIGH FLOW O2 CT CHEST (-) PE ? ARDS? PNEUMONIA - Current Medication List Current Medications: Active Medications Acetaminophen (Ofirmev Injection -) 1,000 mg IVPB Q6H PRN PRN Reason: Fever or pain Last Admin: 09/20/19 14:40 Dose: 1,000 mg Amitriptyline HCl (Elavil -) 100 mg PO HS [facility] Last Admin: 09/19/19 21:04 Dose: 100 mg Benzocaine/Menthol (Cepacol Lozenge -) 1 each MM PRN PRN PRN Reason: SORE THROAT Last Admin: 09/17/19 17:36 Dose: 1 each Dexamethasone Sodium Phosphate (Decadron Injection -) 4 mg IVPUSH ONCE PRN PRN Reason: NAUSEA AND/OR VOMITING Diphenhydramine HCl (Benadryl -) 50 mg PO BID [facility] Last Admin: 09/20/19 09:43 Dose: 50 mg Gabapentin (Neurontin -) 600 mg PO TID [facility] Last Admin: 09/20/19 13:27 Dose: 600 mg Hydromorphone HCl (Dilaudid -) 8 mg PO Q6H PRN PRN Reason: PAIN LEVEL 6-10 Last Admin: 09/20/19 17:44 Dose: 8 mg Piperacillin Sod/Tazobactam (Sod 3.375 gm/ Dextrose) 50 mls @ 100 mls/hr IVPB Q8H-IV ARNIE; Protocol Last Admin: 09/20/19 17:28 Dose: 100 mls/hr Melatonin (Melatonin) 10 mg PO HS PRN PRN Reason: INSOMNIA Last Admin: 09/19/19 21:06 Dose: 10 mg Mupirocin (Bactroban 2% Ointment -) 1 applic TP BID [facility] Last Admin: 09/20/19 09:43 Dose: 1 applic Ondansetron HCl (Zofran Injection) 4 mg IVPUSH Q6H PRN PRN Reason: NAUSEA AND/OR VOMITING Last Admin: 09/13/19 20:27 Dose: 4 mg Ondansetron HCl (Zofran Injection) 4 mg IVPUSH Q4H PRN PRN Reason: NAUSEA AND/OR VOMITING Polyethylene Glycol (Miralax (For Daily Use) -) 17 gm PO BID ARNIE Last Admin: 09/20/19 09:54 Dose: Not Given Promethazine HCl (Phenergan Injection -) 12.5 mg IVPB Q6H PRN PRN Reason: NAUSEA AND/OR VOMITING - Objective Vital Signs: Vital Signs Temperature 98.6 F 09/20/19 18:00 Pulse Rate 82 09/20/19 18:00 Respiratory Rate 16 09/20/19 18:00 Blood Pressure 92/53 L 09/20/19 18:00 O2 Sat by Pulse Oximetry (%) 100 09/20/19 10:00 Constitutional: Yes: No Distress Cardiovascular: Yes: Regular Rate and Rhythm, S1, S2 Respiratory: Yes: Diminished, Poor Air Entry Gastrointestinal: Yes: Normal Bowel Sounds, Soft Edema: No Labs: CBC, BMP 09/20/19 12:55 09/20/19 05:35 Assessment/Plan R/O PNEUMONIA/ ARDS UTI S/P LAMINECTOMY CONTINUE EMPIRIC ZOSYN
[2019-09-20] MEDS ORDERED: PT OWN MED DRAWER 7, Y5N ONE (21:37)
[2019-09-20] MEDS: AMITRIPTYLINE HCL 25 MG TABLET (FP) PO SCH (21:43)
[2019-09-20] MEDS: MELATONIN 5 MG TABLETS PO PRN (21:43)
[2019-09-20] MEDS: ONDANSETRON 4 MG/2 ML VIAL IVPUSH PRN (23:18)
[2019-09-21] MEDS ORDERED: LORazepam 2 MG/ML SDV VIAL IVPUSH ONE (02:00)
[2019-09-21] MEDS ORDERED: LORazepam 2 MG/ML SDV VIAL ONE (02:07)
[2019-09-21] MEDS ORDERED: PIPERACILLIN/TAZOBACTAM 3.375 GM VIAL IVPB ONE ×4 (03:11→20:49)
[2019-09-21] MEDS ORDERED: DEXTROSE 5%-WATER - 50 ML IVPB ONE ×3 (03:11→20:50)
[2019-09-21] MEDS: PIPERACILLIN/TAZOB 3.375 GM 3.375 GM in DEXTROSE 5%-WATER - 50 ML IVPB SCH ×3 (03:14→18:41)
[2019-09-21] MEDS: ACETAMINOPHEN 1000 MG/100 ML VIAL (NON FORMULARY) IVPB PRN ×3 (05:15→20:57)
[2019-09-21] MEDS: GABAPENTIN 300 MG CAPSULE (FP) PO SCH ×3 (05:15→21:00)
[2019-09-21 06:02] LABS: BASO % 0.6 % (0-2.0); HEMATOCRIT 23.2 % (32.4-45.2); HEMOGLOBIN 7.8 GM/dL (10.7-15.3); LYMPH % 14.3 % (8-40); MCH 30.3 pg (25.7-33.7); MCHC 33.6 g/dl (32.0-36.0); MEAN CELL VOLUME 90.1 fl (80-96); MEAN PLT VOLUME 7.4 fl (7.5-11.1); MONO % 4.7 % (3.8-10.2); NEUT % 73.4 % (42.8-82.8); PLATELET COUNT 547 K/MM3 (134-434); RBC 2.57 M/mm3 (3.60-5.2); RDW 14.9 % (11.6-15.6); WHITE BLOOD COUNT 8.6 K/mm3 (4.0-10.0)
[2019-09-21 06:27] LABS: ALBUMIN 1.8 g/dl (3.4-5.0); BILIRUBIN,TOTAL 0.4 mg/dL (0.2-1); CALCIUM 8.4 mg/dL (8.5-10.1); CREATININE 0.4 mg/dL (0.55-1.3); PHOSPHOROUS 3.2 mg/dL (2.5-4.9); TOT PROT 5.7 g/dl (6.4-8.2)
--- NOTE | 2019-09-21 08:56 | PN ---
Physical Exam: SUBJECTIVE: Patient seen and examined. No acute events overnight. Complains of RLE pain. OBJECTIVE: Vital Signs Period Temp Pulse Resp BP Sys/Gallagher Pulse Ox Last 24 Hr 97.9 F-98.6 F 58-89 13-22 89-123/48-94 99-100 GENERAL: Appears lethargic and mildly agitated, but arousable. HEAD: Normal with no signs of trauma. EYES: PERRL, extraocular movements intact ENT: Ears normal, nares patent, dry mucous membranes. NECK: Trachea midline. LUNGS: Mild bibasilar crackles, improving. On HFOT. HEART: Regular rate and rhythm, no murmur ABDOMEN: Soft, nontender, nondistended, normoactive bowel sounds BACK: Pinpoint area of erythema on left upper back just lateral to bandage EXTREMITIES: Warm, well-perfused, no edema. Can actively move both feet L>R. NEUROLOGICAL: Normal speech SKIN: Warm, dry, normal turgor Laboratory Results - last 24 hr CBC, BMP 09/21/19 05:10 09/21/19 05:10 Active Medications Amitriptyline HCl (Elavil -) 100 mg PO HS [facility] Last Admin: 09/20/19 21:43 Dose: 100 mg Benzocaine/Menthol (Cepacol Lozenge -) 1 each MM PRN PRN PRN Reason: SORE THROAT Last Admin: 09/17/19 17:36 Dose: 1 each Dexamethasone Sodium Phosphate (Decadron Injection -) 4 mg IVPUSH ONCE PRN PRN Reason: NAUSEA AND/OR VOMITING Diphenhydramine HCl (Benadryl -) 50 mg PO BID [facility] Last Admin: 09/20/19 21:42 Dose: 50 mg Gabapentin (Neurontin -) 600 mg PO TID [facility] Last Admin: 09/21/19 05:15 Dose: 600 mg Hydromorphone HCl (Dilaudid -) 8 mg PO Q6H PRN PRN Reason: PAIN LEVEL 6-10 Last Admin: 09/21/19 07:26 Dose: 8 mg Piperacillin Sod/Tazobactam (Sod 3.375 gm/ Dextrose) 50 mls @ 100 mls/hr IVPB Q8H-IV [facility]; Protocol Last Admin: 09/21/19 03:14 Dose: 100 mls/hr Melatonin (Melatonin) 10 mg PO HS PRN PRN Reason: INSOMNIA Last Admin: 09/20/19 21:43 Dose: 10 mg Mupirocin (Bactroban 2% Ointment -) 1 applic TP BID [facility] Last Admin: 09/20/19 21:44 Dose: 1 applic Ondansetron HCl (Zofran Injection) 4 mg IVPUSH Q6H PRN PRN Reason: NAUSEA AND/OR VOMITING Last Admin: 09/20/19 23:18 Dose: 4 mg Ondansetron HCl (Zofran Injection) 4 mg IVPUSH Q4H PRN PRN Reason: NAUSEA AND/OR VOMITING Polyethylene Glycol (Miralax (For Daily Use) -) 17 gm PO BID [facility] Last Admin: 09/20/19 21:44 Dose: Not Given Promethazine HCl (Phenergan Injection -) 12.5 mg IVPB Q6H PRN PRN Reason: NAUSEA AND/OR VOMITING ASSESSMENT/PLAN: Ms. Tafoya is a 59y/o female with multiple (~30) back and spine surgeries, complex global myofascial pain syndrome, recurrent spinal stenosis, multiple sclerosis, and mechanical thoracolumbar instability who presents for spinal surgery. #ARDS likely 2/2 pneumonia CTA (09/18): Thickening of interstitial septi and diffuse groundglass opacities with pleural effusions suggesting ARDS CXR (09/20): Worsening of ARDS Zosyn 3.375gm Q8H per ID (Dr. Bennett) on Day 4, one dose vancomycin given 3 days ago Changed triple lumen catheter yesterday F/u blood, urine, and sputum cx Increase lasix to 40mg BID HFOT pt breathing well. Will attempt to slowly wean off, decreasing to 40% today. Incentive spirometry #Complex spinal pain 2/2 mechanical instability and myofascial decompensation s/ p multi-level spinal intervention, POD 7. Planned achilles lengthening procedure with ortho ([facility]as). Surgery deferred until due to fevers and hypoxia. Will cont to monitor. Scheduled IV tylenol Dilaudid [employer] pump d/c'ed due to AMS. Resumed home med Dilaudid 8mg PO Q6H PRN. Pain well controlled for now Gabapentin 300mg TID Restart ativan 1mg TID prn for muscle spasms Zofran PRN PT eval daily. No bending, lifting (>5 lbs), or twisting for 9-12 months, f/ u 7-10 days after rehab d/c #Normocytic anemia Hgb: 7.8 FOBT: negative Hold off on units for now Cont to monitor closely #Hypomagnesemia M.0 today Cont to monitor daily #FEN Monitor Mg and Hb Sodium controlled diet #Dispo: Surgery deferred until ARDS improves Monitor in ICU SNF Visit type - Emergency Visit Emergency Visit: No - New Patient This patient is new to me today: No - Critical Care Critical Care patient: Yes Total Critical Care Time (in minutes): 45 Critical Care Statement: The care of this patient involved high complexity decision making to prevent further life threatening deterioration of the patient 's condition and/or to evaluate & treat vital organ system(s) failure or risk of failure. ATTENDING PHYSICIAN STATEMENT I saw and evaluated the patient. I reviewed the resident's note and discussed the case with the resident. I agree with the resident's findings and plan as documented. SUBJECTIVE: OBJECTIVE: ASSESSMENT AND PLAN:
[2019-09-21] MEDS: POLYETHYLENE GLYCOL 3350 119 GM BTL PO SCH ×2 (09:37→21:00)
--- NOTE | 2019-09-21 10:00 | PN ---
Teaching Attending Note Name of Resident: Cody Colbert ATTENDING PHYSICIAN STATEMENT I saw and evaluated the patient. I reviewed the resident's note and discussed the case with the resident. I agree with the resident's findings and plan as documented. SUBJECTIVE: Pt seen and examined in the ICU. Remains on HFOT 50% FiO2, 50L/min. States breathing better today. No fevers recorded. OBJECTIVE: Vital Signs Period Temp Pulse Resp BP Sys/Gallagher Pulse Ox Last 24 Hr 97.9 F-98.6 F 58-89 13-22 89-123/48-94 99-100 Intake & Output 09/18/19 09/19/19 09/20/19 09/21/19 23:59 23:59 23:59 23:59 Intake Total 2250 250 1450 100 Output Total 2200 2300 3400 200 Balance 50 -2049 -1950 -100 Weight 97.125 kg 97.296 kg 97.341 kg 100.698 kg Gen: NAD on HFOT Heart: RRR Lung: scattered rhonchi Abd: soft, nontender Ext: no edema CBC, BMP 09/21/19 05:10 09/21/19 05:10 Active Medications Amitriptyline HCl (Elavil -) 100 mg PO HS [facility] Last Admin: 09/20/19 21:43 Dose: 100 mg Benzocaine/Menthol (Cepacol Lozenge -) 1 each MM PRN PRN PRN Reason: SORE THROAT Last Admin: 09/17/19 17:36 Dose: 1 each Dexamethasone Sodium Phosphate (Decadron Injection -) 4 mg IVPUSH ONCE PRN PRN Reason: NAUSEA AND/OR VOMITING Diphenhydramine HCl (Benadryl -) 50 mg PO BID [facility] Last Admin: 09/20/19 21:42 Dose: 50 mg Gabapentin (Neurontin -) 600 mg PO TID [facility] Last Admin: 09/21/19 05:15 Dose: 600 mg Hydromorphone HCl (Dilaudid -) 8 mg PO Q6H PRN PRN Reason: PAIN LEVEL 6-10 Last Admin: 09/21/19 07:26 Dose: 8 mg Piperacillin Sod/Tazobactam (Sod 3.375 gm/ Dextrose) 50 mls @ 100 mls/hr IVPB Q8H-IV [facility]; Protocol Last Admin: 09/21/19 09:37 Dose: 100 mls/hr Melatonin (Melatonin) 10 mg PO HS PRN PRN Reason: INSOMNIA Last Admin: 09/20/19 21:43 Dose: 10 mg Mupirocin (Bactroban 2% Ointment -) 1 applic TP BID [facility] Last Admin: 09/20/19 21:44 Dose: 1 applic Ondansetron HCl (Zofran Injection) 4 mg IVPUSH Q6H PRN PRN Reason: NAUSEA AND/OR VOMITING Last Admin: 09/20/19 23:18 Dose: 4 mg Ondansetron HCl (Zofran Injection) 4 mg IVPUSH Q4H PRN PRN Reason: NAUSEA AND/OR VOMITING Polyethylene Glycol (Miralax (For Daily Use) -) 17 gm PO BID [facility] Last Admin: 09/21/19 09:37 Dose: Not Given Promethazine HCl (Phenergan Injection -) 12.5 mg IVPB Q6H PRN PRN Reason: NAUSEA AND/OR VOMITING ASSESSMENT AND PLAN: Progressive Kyphoscoliosis s/p T1-T3 Laminectomies/C7-T4 Fusion/T8-S1 Posterior Instrumentation/Arthrodesis Anemia Volume Overload Pleural Effusions r/o Pneumonia - continue antibiotics - continue lasix - monitor urine output, creatinine - keep net negative - pain control - incentive spirometry - PO as tolerated - antiemetics - activity/diet/DVT prophylaxis per surgery - continue ICU monitoring
[2019-09-21] MEDS: MUPIROCIN 2% TOPICAL OINTMENT 22 GM TUBE TP SCH ×2 (10:36→21:00)
--- NOTE | 2019-09-21 10:40 | PN ---
Physical Exam: SUBJECTIVE: Patient seen and examined. No acute events overnight. Pt complains of R thigh pain radiating down leg this morning. Denies SOB, fever OBJECTIVE: Vital Signs Period Temp Pulse Resp BP Sys/Gallagher Pulse Ox Last 24 Hr 97.9 F-98.6 F 58-89 13-22 92-123/48-94 99-99 GENERAL: The patient is awake, alert, and fully oriented. LUNGS: Coarse breath sounds and crackles bilaterally, no wheezes. No accessory muscle use. HEART: Regular rate and rhythm, S1, S2 without murmur, rub or gallop. ABDOMEN: Soft, nontender, nondistended, normoactive bowel sounds, no guarding, no rebound. EXTREMITIES: 2+ pitting edema charan NEUROLOGICAL: Normal speech, gait not observed. Laboratory Results - last 24 hr 09/20/19 09/20/19 09/21/19 11:20 12:55 05:10 WBC 11.7 H 8.6 RBC 2.63 L 2.57 L Hgb 7.6 L 7.8 L Hct 23.9 L 23.2 L MCV 90.9 90.1 MCH 29.0 30.3 MCHC 31.9 L 33.6 RDW 14.7 14.9 Plt Count 502 H 547 H MPV 7.4 L 7.4 L Absolute Neuts (auto) 9.4 H 6.3 Neutrophils % 80.8 73.4 Lymphocytes % 10.6 D 14.3 D Monocytes % 3.7 L 4.7 Eosinophils % 4.6 H 7.0 H Basophils % 0.3 0.6 Nucleated RBC % 0 0 Sodium Potassium Chloride Carbon Dioxide Anion Gap BUN Creatinine Est GFR (CKD-EPI)AfAm Est GFR (CKD-EPI)NonAf Random Glucose Calcium Phosphorus Magnesium Total Bilirubin AST ALT Alkaline Phosphatase Total Protein Albumin Stool Occult Blood Negative 09/21/19 05:10 WBC RBC Hgb Hct MCV MCH MCHC RDW Plt Count MPV Absolute Neuts (auto) Neutrophils % Lymphocytes % Monocytes % Eosinophils % Basophils % Nucleated RBC % Sodium 143 Potassium 4.0 Chloride 103 Carbon Dioxide 33 H Anion Gap 7 L BUN 11.0 Creatinine 0.4 L Est GFR (CKD-EPI)AfAm 134.00 Est GFR (CKD-EPI)NonAf 115.62 Random Glucose 82 Calcium 8.4 L Phosphorus 3.2 Magnesium 2.0 Total Bilirubin 0.4 AST 29 ALT 45 Alkaline Phosphatase 375 H Total Protein 5.7 L Albumin 1.8 L Stool Occult Blood Active Medications Generic Name Dose Route Start Last Admin Trade Name Prosper PRN Reason Stop Dose Admin Amitriptyline HCl 100 mg 09/10/19 16:26 09/20/19 21:43 Elavil - PO 100 mg HS [facility] Administration Benzocaine/Menthol 1 each 09/17/19 12:19 09/17/19 17:36 Cepacol Lozenge - MM 1 each PRN PRN Administration SORE THROAT Dexamethasone Sodium Phosphate 4 mg 09/11/19 18:40 Decadron Injection - IVPUSH ONCE PRN NAUSEA AND/OR VOMITING Diphenhydramine HCl 50 mg 09/15/19 10:00 09/21/19 10:36 Benadryl - PO 50 mg BID [facility] Administration Furosemide 40 mg 09/21/19 10:45 09/21/19 10:36 Lasix Injection - IVPUSH 09/21/19 10:46 40 mg ONCE ONE Administration Gabapentin 600 mg 09/13/19 14:00 09/21/19 05:15 Neurontin - PO 600 mg TID [facility] Administration Hydromorphone HCl 8 mg 09/19/19 15:55 09/21/19 07:26 Dilaudid - PO 8 mg Q6H PRN Administration PAIN LEVEL 6-10 Piperacillin Sod/Tazobactam 50 mls @ 100 mls/hr 09/18/19 18:00 09/21/19 09:37 Sod 3.375 gm/ Dextrose IVPB 100 mls/hr Q8H-IV [facility] Administration Protocol Melatonin 10 mg 09/19/19 19:22 09/20/19 21:43 Melatonin PO 10 mg HS PRN Administration INSOMNIA Mupirocin 1 applic 09/15/19 10:45 09/21/19 10:36 Bactroban 2% Ointment - TP 1 applic BID [facility] Administration Ondansetron HCl 4 mg 09/09/19 16:47 09/20/19 23:18 Zofran Injection IVPUSH 4 mg Q6H PRN Administration NAUSEA AND/OR VOMITING Ondansetron HCl 4 mg 09/11/19 18:40 Zofran Injection IVPUSH Q4H PRN NAUSEA AND/OR VOMITING Polyethylene Glycol 17 gm 09/17/19 22:00 09/21/19 09:37 Miralax (For Daily Use) - PO Not Given BID [facility] Promethazine HCl 12.5 mg 09/11/19 18:43 Phenergan Injection - IVPB Q6H PRN NAUSEA AND/OR VOMITING ASSESSMENT/PLAN: 59 y/o/f with PMhx of multiple (~30) back and spine surgeries, complex global myofascial pain syndrome, recurrent spinal stenosis, multiple sclerosis, mechanical thoracolumbar instability, s/p 1) inspection fusion mass (c-spine), 2 ) T1-3 laminectomies, 3) C7-T4 in situ fusion, 4) Inspection fusion mass ( thoracolumbar spine), 5) posterior instrumentation T8-S1, 6) posteroir arthrodesis T8-S1, 7) bone allograft, 8) bone autograft, 9) complex wound closure (60cm). POD#11. #Respiratory - Suspecting ARDS. Repeat CXR today shows slightly increased charan infiltrates vs yesterday - giving Lasix 40mg IV BID today - HiFlo 55 O2 flow/50% O2. Wean as tolerated - CTA 09/18 showed diffuse fibrosis concerning for pneumonia/edema. No PE/ dissection - Incentive spirometery #Neuro - Restarting 1mg Ativan TID, 10 flexeril BID - Pain control : Dilaudid 8mg PO Q6H PRN, Benadryl 50mg PO BID, Amytriptyline 100mg PO HS, Ofirmev 1000mg IV Q6H PRN - Nausea: Promethazine 12.5mg IV Q6H PRN and Zofran 4mg IV Q4H - Appreciate neuro recs #Ortho - Aguilar's slide procedure pending improvement - Gabapentin 600mg PO TID - PT eval daily: No bending, lifting (>5 lbs), or twisting for 9-12 months, f/u 7-10 days after rehab d/c #ID - WBC donwtrending 11.7 to 8.6, afebrile, monitor - Blood cx from 09/17 show no growth. - Zosyn 3.375mg Q8H, started 09/18, 1g vanc given 09/18 - Appreciate ID recs #GI - Alk Phos 401 to 375, monitor - Miralax 17mg BID for constipation - Stool Occult blood test negative. #Renal - UTI diagnosed on UA 09/18, treated w zosyn - BUN/Cr normal, monitor - I/O #Heme - Hgb 7.6 to 7.8, monitor #FEN - no fluids - no electrolyte disturbances - Cholesterol controlled diet, as tolerated #PPX - DVT: SCDs - GI: none #Dispo: - ICU Visit type - Emergency Visit Emergency Visit: Yes ED Registration Date: 09/09/19 Care time: The patient presented to the Emergency Department on the above date and was hospitalized for further evaluation of their emergent condition. - New Patient This patient is new to me today: No - Critical Care Critical Care patient: Yes Total Critical Care Time (in minutes): 39 Critical Care Statement: The care of this patient involved high complexity decision making to prevent further life threatening deterioration of the patient 's condition and/or to evaluate & treat vital organ system(s) failure or risk of failure. ATTENDING PHYSICIAN STATEMENT I saw and evaluated the patient. I reviewed the resident's note and discussed the case with the resident. I agree with the resident's findings and plan as documented. SUBJECTIVE: OBJECTIVE: ASSESSMENT AND PLAN:
[2019-09-21] MEDS ORDERED: FUROSEMIDE 40 MG/4 ML INJECTABLE VIAL IVPUSH ONE ×2 (10:45→17:00)
[2019-09-21] MEDS ORDERED: LORazepam 2 MG TABLET PO PRN (11:04)
--- NOTE | 2019-09-21 11:31 | PN ---
Progress Note, Physician History of Present Illness: AWAKE AND ALERT\ OFFERS NO COMPLAINTS TEMPS DOWN AFEBRILE BREATHING NON-LABORED ON HIGH FLOW O2 CT CHEST (-) PE ? ARDS? PNEUMONIA - Current Medication List Current Medications: Active Medications Amitriptyline HCl (Elavil -) 100 mg PO HS [facility] Last Admin: 09/20/19 21:43 Dose: 100 mg Benzocaine/Menthol (Cepacol Lozenge -) 1 each MM PRN PRN PRN Reason: SORE THROAT Last Admin: 09/17/19 17:36 Dose: 1 each Dexamethasone Sodium Phosphate (Decadron Injection -) 4 mg IVPUSH ONCE PRN PRN Reason: NAUSEA AND/OR VOMITING Diphenhydramine HCl (Benadryl -) 50 mg PO BID [facility] Last Admin: 09/21/19 10:36 Dose: 50 mg Furosemide (Lasix Injection -) 40 mg IVPUSH ONCE ONE Stop: 09/21/19 17:01 Gabapentin (Neurontin -) 600 mg PO TID [facility] Last Admin: 09/21/19 05:15 Dose: 600 mg Hydromorphone HCl (Dilaudid -) 8 mg PO Q6H PRN PRN Reason: PAIN LEVEL 6-10 Last Admin: 09/21/19 07:26 Dose: 8 mg Piperacillin Sod/Tazobactam (Sod 3.375 gm/ Dextrose) 50 mls @ 100 mls/hr IVPB Q8H-IV [facility]; Protocol Last Admin: 09/21/19 09:37 Dose: 100 mls/hr Lorazepam (Ativan -) 1 mg PO TID PRN PRN Reason: ANXIETY Melatonin (Melatonin) 10 mg PO HS PRN PRN Reason: INSOMNIA Last Admin: 09/20/19 21:43 Dose: 10 mg Mupirocin (Bactroban 2% Ointment -) 1 applic TP BID [facility] Last Admin: 09/21/19 10:36 Dose: 1 applic Ondansetron HCl (Zofran Injection) 4 mg IVPUSH Q6H PRN PRN Reason: NAUSEA AND/OR VOMITING Last Admin: 09/20/19 23:18 Dose: 4 mg Ondansetron HCl (Zofran Injection) 4 mg IVPUSH Q4H PRN PRN Reason: NAUSEA AND/OR VOMITING Polyethylene Glycol (Miralax (For Daily Use) -) 17 gm PO BID [facility] Last Admin: 09/21/19 09:37 Dose: Not Given Promethazine HCl (Phenergan Injection -) 12.5 mg IVPB Q6H PRN PRN Reason: NAUSEA AND/OR VOMITING - Objective Vital Signs: Vital Signs Temperature 98.3 F 09/21/19 08:00 Pulse Rate 79 09/21/19 09:09 Respiratory Rate 14 09/21/19 09:09 Blood Pressure 104/55 L 09/21/19 09:09 O2 Sat by Pulse Oximetry (%) 99 09/21/19 08:39 Constitutional: Yes: No Distress Cardiovascular: Yes: Regular Rate and Rhythm, S1, S2 Respiratory: Yes: Diminished Gastrointestinal: Yes: Normal Bowel Sounds, Soft. No: Tenderness Edema: No Labs: CBC, BMP 09/21/19 05:10 09/21/19 05:10 Assessment/Plan R/O PNEUMONIA/ ARDS UTI S/P LAMINECTOMY CONTINUE EMPIRIC ZOSYN
--- NOTE | 2019-09-21 11:44 | PN ---
Progress Note (short form) - Note Progress Note: Neurology HISTORY OF PRESENT ILLNESS: 59 y/o female with hx of multiple (~30) back and spine surgeries, complex global myofascial pain syndrome, recurrent spinal stenosis, multiple sclerosis, mechanical thoracolumbar instability, admitted for surgical intervention and per notes completed: 1) inspection fusion mass (c-spine), 2) T1-3 laminectomies, 3) C7-T4 in situ fusion, 4) Inspection fusion mass (thoracolumbar spine), 5) posterior instrumentation T8-S1, 6) posteroir arthrodesis T8-S1, 7) bone allograft, 8) bone autograft, 9) complex wound closure (60cm). 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 Complaints of pain and pain mgmt has been consulted. Extensive conversation regarding her MS history which dates back to >10 years and reports previously on BetaSeron but felt no difference. States last MRI brain was 1 year ago, offered repeat which patient would like to defer and reports prior imaging stable and states she will not be able to stay flat and tolerate procedure. She does not want to start on MS meds and would like to focus on spinal mgmt at this time. As outpatient, would advise MRI brain with and without contrast to start with. Was being plaaned for ruff slide bilterally for feet but with temperature spikes. This morning respiration seem to be normalized andjust using nasal cannula as opposed to face mask that she was requiring yesterday. No longer tachycardic also slightly hypotensive which she reports is her baseline blood pressure. Unclear of whether procedure will be completed but patient does appear to have spin stabilized in terms her respiratory status. Patient reports RLE muscle spasms, requested Flexiril. Would be cautious adding sedatives but mental status is improved. Active Medications Amitriptyline HCl (Elavil -) 100 mg PO HS [facility] Last Admin: 09/20/19 21:43 Dose: 100 mg Benzocaine/Menthol (Cepacol Lozenge -) 1 each MM PRN PRN PRN Reason: SORE THROAT Last Admin: 09/17/19 17:36 Dose: 1 each Dexamethasone Sodium Phosphate (Decadron Injection -) 4 mg IVPUSH ONCE PRN PRN Reason: NAUSEA AND/OR VOMITING Diphenhydramine HCl (Benadryl -) 50 mg PO BID [facility] Last Admin: 09/21/19 10:36 Dose: 50 mg Furosemide (Lasix Injection -) 40 mg IVPUSH ONCE ONE Stop: 09/21/19 17:01 Gabapentin (Neurontin -) 600 mg PO TID [facility] Last Admin: 09/21/19 05:15 Dose: 600 mg Hydromorphone HCl (Dilaudid -) 8 mg PO Q6H PRN PRN Reason: PAIN LEVEL 6-10 Last Admin: 09/21/19 07:26 Dose: 8 mg Piperacillin Sod/Tazobactam (Sod 3.375 gm/ Dextrose) 50 mls @ 100 mls/hr IVPB Q8H-IV [facility]; Protocol Last Admin: 09/21/19 09:37 Dose: 100 mls/hr Lorazepam (Ativan -) 1 mg PO TID PRN PRN Reason: ANXIETY Melatonin (Melatonin) 10 mg PO HS PRN PRN Reason: INSOMNIA Last Admin: 09/20/19 21:43 Dose: 10 mg Mupirocin (Bactroban 2% Ointment -) 1 applic TP BID [facility] Last Admin: 09/21/19 10:36 Dose: 1 applic Ondansetron HCl (Zofran Injection) 4 mg IVPUSH Q6H PRN PRN Reason: NAUSEA AND/OR VOMITING Last Admin: 09/20/19 23:18 Dose: 4 mg Ondansetron HCl (Zofran Injection) 4 mg IVPUSH Q4H PRN PRN Reason: NAUSEA AND/OR VOMITING Polyethylene Glycol (Miralax (For Daily Use) -) 17 gm PO BID [facility] Last Admin: 09/21/19 09:37 Dose: Not Given Promethazine HCl (Phenergan Injection -) 12.5 mg IVPB Q6H PRN PRN Reason: NAUSEA AND/OR VOMITING PHYSICAL EXAMINATION Vital Signs Period Temp Pulse Resp BP Sys/Gallagher Pulse Ox Last 24 Hr 97.9 F-98.6 F 58-89 13-22 92-123/48-94 99-99 GENERAL: Awake, alert, and fully oriented, in no acute distress. HEAD: Normal with no signs of trauma. EYES: Pupils equal, round and reactive to light, extraocular movements intact, sclera anicteric, conjunctiva clear. No lid lag. EARS, NOSE, THROAT: Ears normal, nares patent, oropharynx clear without exudates. Moist mucous membranes. NECK: Normal range of motion, supple without lymphadenopathy, JVD, or masses. LUNGS: Breath sounds equal, clear to auscultation bilaterally. No wheezes, and no crackles. No accessory muscle use. HEART: Regular rate and rhythm, normal S1 and S2 without murmur, rub or gallop. ABDOMEN: Soft, nontender, not distended, normoactive bowel sounds, no guarding, no rebound, no masses. No hepatomegaly or splenomegaly. MUSCULOSKELETAL: Normal range of motion at all joints. No bony deformities or tenderness. No CVA tenderness. UPPER EXTREMITIES: 2+ pulses, warm, well-perfused. No cyanosis. No clubbing. Cap refill <2 seconds. No peripheral edema. LOWER EXTREMITIES: 2+ pulses, warm, well-perfused. No calf tenderness. No peripheral edema. NEUROLOGICAL: Cranial nerves II-XII intact. Normal speech. Normal gait. PSYCHIATRIC: Cooperative. Good eye contact. Appropriate mood and affect. SKIN: Warm, dry, normal turgor, no rashes or lesions noted. 2 CBCD WBC 8.6 K/mm3 (4.0-10.0) 09/21/19 05:10 RBC 2.57 M/mm3 (3.60-5.2) L 09/21/19 05:10 Hgb 7.8 GM/dL (10.7-15.3) L 09/21/19 05:10 Hct 23.2 % (32.4-45.2) L 09/21/19 05:10 MCV 90.1 fl (80-96) 09/21/19 05:10 MCHC 33.6 g/dl (32.0-36.0) 09/21/19 05:10 RDW 14.9 % (11.6-15.6) 09/21/19 05:10 Plt Count 547 K/MM3 (134-434) H 09/21/19 05:10 MPV 7.4 fl (7.5-11.1) L 09/21/19 05:10 CMP Sodium 143 mmol/L (136-145) 09/21/19 05:10 Potassium 4.0 mmol/L (3.5-5.1) 09/21/19 05:10 Chloride 103 mmol/L (98-107) 09/21/19 05:10 Carbon Dioxide 33 mmol/L (21-32) H 09/21/19 05:10 Anion Gap 7 MMOL/L (8-16) L 09/21/19 05:10 BUN 11.0 mg/dL (7-18) 09/21/19 05:10 Creatinine 0.4 mg/dL (0.55-1.3) L 09/21/19 05:10 Random Glucose 82 mg/dL (74-106) 09/21/19 05:10 Calcium 8.4 mg/dL (8.5-10.1) L 09/21/19 05:10 Total Bilirubin 0.4 mg/dL (0.2-1) 09/21/19 05:10 AST 29 U/L (15-37) 09/21/19 05:10 ALT 45 U/L (13-61) 09/21/19 05:10 Alkaline Phosphatase 375 U/L (45-117) H 09/21/19 05:10 Total Protein 5.7 g/dl (6.4-8.2) L 09/21/19 05:10 Albumin 1.8 g/dl (3.4-5.0) L 09/21/19 05:10 ASSESSMENT/PLAN: 59 y/o female with hx of multiple (~30) back and spine surgeries, complex global myofascial pain syndrome, recurrent spinal stenosis, multiple sclerosis, mechanical thoracolumbar instability, POD #0 s/p 1) inspection fusion mass (c- spine), 2) T1-3 laminectomies, 3) C7-T4 in situ fusion, 4) Inspection fusion mass (thoracolumbar spine), 5) posterior instrumentation T8-S1, 6) posteroir arthrodesis T8-S1, 7) bone allograft, 8) bone autograft, 9) complex wound closure (60cm). 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 Complaints of pain and pain mgmt has been consulted. Extensive conversation regarding her MS history which dates back to > 10 years and reports previously on BetaSeron but felt no difference. States last MRI brain was 1 year ago, offered repeat which patient would like to defer and reports prior imaging stable and states she will not be able to stay flat and tolerate procedure. She does not want to start on MS meds and would like to focus on spinal mgmt at this time. As outpatient, would advise MRI brain with and without contrast to start with. Was being plaaned for ruff slide bilterally for feet but with temperature spikes. This morning respiration seem to be normalized andjust using nasal cannula as opposed to face mask that she was requiring yesterday. No longer tachycardic also slightly hypotensive which she reports is her baseline blood pressure. Unclear of whether procedure will be completed but patient does appear to have spin stabilized in terms her respiratory status. Patient reports RLE muscle spasms, requested Flexiril. Would be cautious adding sedatives but mental status is improved and therefore added 10mg BID of Flexiril. continue orthopedic follow-up, caution with pain medications, continue monitor respiratory optimization. Critical care time 35 mins.
[2019-09-21] MEDS: LORazepam 1 MG TABLET PO PRN ×2 (11:56→21:01)
[2019-09-21] MEDS: CYCLOBENZAPRINE HCL 10 MG TABLET (FP) PO SCH ×2 (13:21→21:00)
--- NOTE | 2019-09-21 14:43 | PN ---
Teaching Attending Note Name of Resident: Chanda Graham ATTENDING PHYSICIAN STATEMENT I saw and evaluated the patient. I reviewed the resident's note and discussed the case with the resident. I agree with the resident's findings and plan as documented. SUBJECTIVE: Awake, alert, responsive, answers questions appropriately. Lethargy and agitation resolved. No complaints. OBJECTIVE: Fever resolved. Hemodynamically Stable. AAO x 3. SpO2 99% on High Flow O2 via NC, FiO2 50% Last Vital Signs Temp Pulse Resp BP Pulse Ox 98.3 F 79 14 104/55 L 99 09/21/19 08:00 09/21/19 09:09 09/21/19 09:09 09/21/19 09:09 09/21/19 08:39 Heart - S1, S2, RRR Lungs - bilateral lower zone crackles improving Abdomen - Soft, non-tender. Bowel Sounds normal. Extremities - no edema, no calf tenderness. Neuro - AAO x 3. Moving all extremities. Laboratory Results - last 24 hr 09/21/19 09/21/19 05:10 05:10 WBC 8.6 RBC 2.57 L Hgb 7.8 L Hct 23.2 L MCV 90.1 MCH 30.3 MCHC 33.6 RDW 14.9 Plt Count 547 H MPV 7.4 L Absolute Neuts (auto) 6.3 Neutrophils % 73.4 Lymphocytes % 14.3 D Monocytes % 4.7 Eosinophils % 7.0 H Basophils % 0.6 Nucleated RBC % 0 Sodium 143 Potassium 4.0 Chloride 103 Carbon Dioxide 33 H Anion Gap 7 L BUN 11.0 Creatinine 0.4 L Est GFR (CKD-EPI)AfAm 134.00 Est GFR (CKD-EPI)NonAf 115.62 Random Glucose 82 Calcium 8.4 L Phosphorus 3.2 Magnesium 2.0 Total Bilirubin 0.4 AST 29 ALT 45 Alkaline Phosphatase 375 H Total Protein 5.7 L Albumin 1.8 L Current Medications Generic Name Dose Route Start Last Admin Trade Name Freq PRN Reason Stop Dose Admin Amitriptyline HCl 100 mg 09/10/19 16:26 09/20/19 21:43 Elavil - PO 100 mg HS ARNIE Administration Benzocaine/Menthol 1 each 09/17/19 12:19 09/17/19 17:36 Cepacol Lozenge - MM 1 each PRN PRN Administration SORE THROAT Cyclobenzaprine HCl 10 mg 09/21/19 12:45 09/21/19 13:21 Flexeril - PO 10 mg BID [facility]NIE Administration Dexamethasone Sodium Phosphate 4 mg 09/11/19 18:40 Decadron Injection - IVPUSH ONCE PRN NAUSEA AND/OR VOMITING Diphenhydramine HCl 50 mg 09/15/19 10:00 09/21/19 10:36 Benadryl - PO 50 mg BID [facility]IE Administration Furosemide 40 mg 09/21/19 17:00 Lasix Injection - IVPUSH 09/21/19 17:01 ONCE ONE Gabapentin 600 mg 09/13/19 14:00 09/21/19 05:15 Neurontin - PO 600 mg TID ARNIE Administration Hydromorphone HCl 8 mg 09/19/19 15:55 09/21/19 07:26 Dilaudid - PO 8 mg Q6H PRN Administration PAIN LEVEL 6-10 Piperacillin Sod/Tazobactam 50 mls @ 100 mls/hr 09/18/19 18:00 09/21/19 09:37 Sod 3.375 gm/ Dextrose IVPB 100 mls/hr Q8H-IV [facility] Administration Protocol Lorazepam 1 mg 09/21/19 11:07 09/21/19 11:56 Ativan - PO 1 mg TID PRN Administration ANXIETY Melatonin 10 mg 09/19/19 19:22 09/20/19 21:43 Melatonin PO 10 mg HS PRN Administration INSOMNIA Mupirocin 1 applic 09/15/19 10:45 09/21/19 10:36 Bactroban 2% Ointment - TP 1 applic BID [facility] Administration Ondansetron HCl 4 mg 09/09/19 16:47 09/20/19 23:18 Zofran Injection IVPUSH 4 mg Q6H PRN Administration NAUSEA AND/OR VOMITING Ondansetron HCl 4 mg 09/11/19 18:40 Zofran Injection IVPUSH Q4H PRN NAUSEA AND/OR VOMITING Polyethylene Glycol 17 gm 09/17/19 22:00 09/21/19 09:37 Miralax (For Daily Use) - PO Not Given BID [facility] Promethazine HCl 12.5 mg 09/11/19 18:43 Phenergan Injection - IVPB Q6H PRN NAUSEA AND/OR VOMITING Home Medications Medication Instructions Recorded Amitriptyline HCl [Elavil -] 50 mg PO HS 01/16/19 Oxycodone HCl 60 mg PO Q8H 01/16/19 HYDROmorphone [Dilaudid -] 8 mg PO Q6H PRN 03/04/19 Cyclobenzaprine HCl 1 tab PO TID 03/05/19 LORazepam [Ativan] 2 mg PO TID tablet MDD 6mg 03/11/19 Amitriptyline HCl 100 mg PO TID 09/06/19 Alprazolam [Xanax] 0.5 mg PO BID 09/12/19 Fluoxetine HCl 10 mg PO BID 09/12/19 Prednisone 5 mg PO QID 09/12/19 ASSESSMENT AND PLAN: 59 year old female with history of MS, recurrent lumbar spinal stenosis, s/p multiple back surgeries, complex global myofascial pain syndrome, mechanical thoracolumbar instability, admitted for spine surgery. POD 12 s/p 1. Inspection fusion mass (cervical spine). 2. T1, T2, T3 laminectomies. 3. C7 -T4 in situ fusion. 4. Inspection fusion mass (thoracolumbar spine). 5. Posterior instrumentation T8-S1. 6. Posterior arthrodesis T8-S1. 7. Bone allograft. 8. Bone autograft. 9. Complex wound closure 1. 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 Dilaudid PRN for pain management. Contiue Elavil, Neurontin, Ativan PRN Further management as per Ortho. Deferral of Aguilar's procedure planned for achilles tendon release due to fever, mental status change and hypoxic resp failure. 2. Acute Hypoxic respiratory failure and Sepsis secondary to Pneumonia +/- ARDS Requiring oxygen supplementation - continue high flow via NC. Clinically improving. Fever resolved. CTA Chest neg for PE but shows bilateral interstitial infiltrates + fluid ? Pneumonia +/- ARDS Responding to IV lasix - dose increased to 40mg BID. Blood Cx neg. Urine Cx contaminated. Continue IV Zosyn for HCAP. Further Abx therapy as per ID Monitor respiratory status. 3. Acute Metabolic Encephalopathy secondary to Hypoxia + Sepsis - much improved/ significantly resolved. AAO x 3 today, agitation/confusion resolved. Dilaudid ABSTRACTER held. Will monitor. No focal deficits. IRVING. Moving extremities. Some anxiety this AM - resumed on reduced dose of Ativan, which patient takes chronically. 4. Anemia - normocytic s/p spinal surgery. No evidence of ongoing blood loss Will monitor H/H and transfuse if necessary. 5. Hypokalemia - repleted. DVT Px - SCDs
[2019-09-21] MEDS: diphenhydrAMINE HCL 25 MG CAPSULE (FP) PO SCH ×2 (15:20→21:00)
[2019-09-21] MEDS ORDERED: FUROSEMIDE 40 MG/4 ML INJECTABLE VIAL IVPB ONE ×2 (18:15→20:30)
[2019-09-21] MEDS ORDERED: DEXTROSE 5%-WATER - 100 ML IVPB ONE (18:29)
[2019-09-21 19:30] LABS: ALBUMIN 1.9 g/dl (3.4-5.0); BILIRUBIN,TOTAL 0.3 mg/dL (0.2-1); BLOOD UREA NITROGEN 11.2 mg/dL (7-18); CALCIUM 7.8 mg/dL (8.5-10.1); CREATININE 0.5 mg/dL (0.55-1.3); TOT PROT 5.9 g/dl (6.4-8.2)
[2019-09-21] MEDS: MELATONIN 5 MG TABLETS PO PRN (20:59)
[2019-09-21] MEDS ORDERED: PT OWN MED DRAWER 7, Y5N ONE (21:01)
[2019-09-21] MEDS: AMITRIPTYLINE HCL 25 MG TABLET (FP) PO SCH (21:02)
[2019-09-21] MEDS ORDERED: FENTANYL PATCH WASTE TD PRN (22:19)
[2019-09-21] MEDS ORDERED: fentaNYL 50mcg/hr PATCH.TD72 TD SCH (22:30)
[2019-09-21] MEDS: LORazepam 2 MG/ML SDV VIAL IVPUSH PRN (23:01)
[2019-09-22] MEDS: PIPERACILLIN/TAZOB 3.375 GM 3.375 GM in DEXTROSE 5%-WATER - 50 ML IVPB SCH ×3 (01:35→17:50)
[2019-09-22] MEDS: LORazepam 2 MG/ML SDV VIAL IVPUSH PRN ×4 (03:26→21:09)
[2019-09-22] MEDS: GABAPENTIN 300 MG CAPSULE (FP) PO SCH ×3 (06:13→21:10)
[2019-09-22 06:58] LABS: BASO % 0.4 % (0-2.0); EOS % 6.2 % (0-4.5); HEMATOCRIT 26.9 % (32.4-45.2); HEMOGLOBIN 9.1 GM/dL (10.7-15.3); LYMPH % 16.7 % (8-40); MCH 30.1 pg (25.7-33.7); MCHC 33.6 g/dl (32.0-36.0); MEAN CELL VOLUME 89.6 fl (80-96); MEAN PLT VOLUME 7.3 fl (7.5-11.1); MONO % 4.8 % (3.8-10.2); NEUT % 71.9 % (42.8-82.8); PLATELET COUNT 665 K/MM3 (134-434); RBC 3.01 M/mm3 (3.60-5.2); RDW 14.3 % (11.6-15.6); WHITE BLOOD COUNT 9.8 K/mm3 (4.0-10.0)
[2019-09-22 07:32] LABS: ALBUMIN 2.1 g/dl (3.4-5.0); BILIRUBIN,TOTAL 0.3 mg/dL (0.2-1); CALCIUM 8.5 mg/dL (8.5-10.1); CREATININE 0.6 mg/dL (0.55-1.3); PHOSPHOROUS 3.6 mg/dL (2.5-4.9); POTASSIUM 3.8 mmol/L (3.5-5.1); TOT PROT 6.3 g/dl (6.4-8.2)
[2019-09-22] MEDS ORDERED: DEXTROSE 5%-WATER - 50 ML IVPB ONE (07:41)
[2019-09-22] MEDS ORDERED: PIPERACILLIN/TAZOBACTAM 3.375 GM VIAL IVPB ONE ×2 (07:41→17:34)
[2019-09-22] MEDS: ACETAMINOPHEN 1000 MG/100 ML VIAL (NON FORMULARY) IVPB PRN ×2 (07:50→13:54)
[2019-09-22] MEDS ORDERED: POTASSIUM CHLORIDE TABS 20 MEQ TABLET.ER (FP) PO ONE (08:09)
[2019-09-22] MEDS: POLYETHYLENE GLYCOL 3350 119 GM BTL PO SCH ×2 (09:10→21:11)
--- NOTE | 2019-09-22 09:12 | PN ---
Progress Note, Physician History of Present Illness: AWAKE BUT LETHARGIC; JUST RECEIVED PAIN MEDS OFFERS NO COMPLAINTS TEMPS DOWN AFEBRILE WBC WNL BREATHING NON-LABORED ON HIGH FLOW O2 CXR DIFFUSE BILATERAL INFILTRATES - Current Medication List Current Medications: Active Medications Acetaminophen (Ofirmev Injection -) 1,000 mg IVPB Q6H PRN PRN Reason: PAIN LEVEL 1-5 Last Admin: 09/22/19 07:50 Dose: 1,000 mg Amitriptyline HCl (Elavil -) 100 mg PO HS [facility] Last Admin: 09/21/19 21:02 Dose: 100 mg Benzocaine/Menthol (Cepacol Lozenge -) 1 each MM PRN PRN PRN Reason: SORE THROAT Last Admin: 09/17/19 17:36 Dose: 1 each Cyclobenzaprine HCl (Flexeril -) 10 mg PO BID [facility] Last Admin: 09/21/19 21:00 Dose: 10 mg Dexamethasone Sodium Phosphate (Decadron Injection -) 4 mg IVPUSH ONCE PRN PRN Reason: NAUSEA AND/OR VOMITING Diphenhydramine HCl (Benadryl -) 50 mg PO BID [facility] Last Admin: 09/21/19 21:00 Dose: 50 mg Fentanyl (Duragesic 50mcg Patch -) 1 patch TD Q72H [facility] Stop: 09/22/19 22:29 Last Admin: 09/21/19 23:00 Dose: Not Given Gabapentin (Neurontin -) 600 mg PO TID [facility] Last Admin: 09/22/19 06:13 Dose: 600 mg Hydromorphone HCl (Dilaudid -) 8 mg PO Q6H PRN PRN Reason: PAIN LEVEL 6-10 Last Admin: 09/22/19 08:09 Dose: 8 mg Piperacillin Sod/Tazobactam (Sod 3.375 gm/ Dextrose) 50 mls @ 100 mls/hr IVPB Q8H-IV [facility]; Protocol Last Admin: 09/22/19 01:35 Dose: 100 mls/hr Lorazepam (Ativan Injection -) 1 mg IVPUSH TID PRN PRN Reason: ANXIETY Last Admin: 09/22/19 08:18 Dose: 1 mg Melatonin (Melatonin) 10 mg PO HS PRN PRN Reason: INSOMNIA Last Admin: 09/21/19 20:59 Dose: 10 mg Miscellaneous (Duragesic Patch Waste) 1 each TD PRN PRN PRN Reason: PAIN Mupirocin (Bactroban 2% Ointment -) 1 applic TP BID [facility] Last Admin: 09/21/19 21:00 Dose: 1 applic Ondansetron HCl (Zofran Injection) 4 mg IVPUSH Q6H PRN PRN Reason: NAUSEA AND/OR VOMITING Last Admin: 09/20/19 23:18 Dose: 4 mg Ondansetron HCl (Zofran Injection) 4 mg IVPUSH Q4H PRN PRN Reason: NAUSEA AND/OR VOMITING Polyethylene Glycol (Miralax (For Daily Use) -) 17 gm PO BID [facility] Last Admin: 09/21/19 21:00 Dose: Not Given Promethazine HCl (Phenergan Injection -) 12.5 mg IVPB Q6H PRN PRN Reason: NAUSEA AND/OR VOMITING - Objective Vital Signs: Vital Signs Temperature 98.9 F 09/22/19 06:00 Pulse Rate 78 09/22/19 06:00 Respiratory Rate 15 09/22/19 06:00 Blood Pressure 102/63 09/22/19 06:00 O2 Sat by Pulse Oximetry (%) 99 09/21/19 08:39 Constitutional: Yes: No Distress Eyes: Yes: Conjunctiva Clear Cardiovascular: Yes: Regular Rate and Rhythm, S1, S2 Respiratory: Yes: Diminished Gastrointestinal: Yes: Normal Bowel Sounds, Soft. No: Tenderness Extremities: No: Calf Tenderness Edema: LLE: 1+, RLE: 1+ Labs: CBC, BMP 09/22/19 05:30 09/22/19 05:30 Assessment/Plan R/O PNEUMONIA/ ARDS UTI S/P LAMINECTOMY CONTINUE ZOSYN
[2019-09-22] MEDS: MUPIROCIN 2% TOPICAL OINTMENT 22 GM TUBE TP SCH ×2 (09:54→21:11)
--- NOTE | 2019-09-22 10:14 | PN ---
Teaching Attending Note Name of Resident: Lucas Vasques ATTENDING PHYSICIAN STATEMENT I saw and evaluated the patient. I reviewed the resident's note and discussed the case with the resident. I agree with the resident's findings and plan as documented. SUBJECTIVE: Pt seen and examined in the ICU. Remains on HFOT 40% FiO2, 40L/min. Diuresing well with lasix. Requesting sleep aid. OBJECTIVE: Vital Signs Period Temp Pulse Resp BP Sys/Gallagher Pulse Ox Last 24 Hr 97.7 F-99.4 F 71-95 13-18 90-118/48-75 Intake & Output 09/19/19 09/20/19 09/21/19 09/22/19 23:59 23:59 23:59 23:59 Intake Total 250 1450 600 150 Output Total 2300 3400 4000 1000 Balance -2050 -1950 -3400 -850 Weight 97.296 kg 97.341 kg 100.698 kg 100.698 kg Gen: less tachypneic on HFOT Heart: RRR Lung: decreased breath sounds at the bases Abd: soft, nontender Ext: no edema CBC, BMP 09/22/19 05:30 09/22/19 05:30 Active Medications Acetaminophen (Ofirmev Injection -) 1,000 mg IVPB Q6H PRN PRN Reason: PAIN LEVEL 1-5 Last Admin: 09/22/19 07:50 Dose: 1,000 mg Amitriptyline HCl (Elavil -) 100 mg PO HS [facility]NIE Last Admin: 09/21/19 21:02 Dose: 100 mg Benzocaine/Menthol (Cepacol Lozenge -) 1 each MM PRN PRN PRN Reason: SORE THROAT Last Admin: 09/17/19 17:36 Dose: 1 each Cyclobenzaprine HCl (Flexeril -) 10 mg PO BID [facility] Last Admin: 09/21/19 21:00 Dose: 10 mg Dexamethasone Sodium Phosphate (Decadron Injection -) 4 mg IVPUSH ONCE PRN PRN Reason: NAUSEA AND/OR VOMITING Diphenhydramine HCl (Benadryl -) 50 mg PO BID [facility] Last Admin: 09/21/19 21:00 Dose: 50 mg Fentanyl (Duragesic 50mcg Patch -) 1 patch TD Q72H [facility] Stop: 09/22/19 22:29 Last Admin: 09/21/19 23:00 Dose: Not Given Gabapentin (Neurontin -) 600 mg PO TID [facility] Last Admin: 09/22/19 06:13 Dose: 600 mg Hydromorphone HCl (Dilaudid -) 8 mg PO Q6H PRN PRN Reason: PAIN LEVEL 6-10 Last Admin: 09/22/19 08:09 Dose: 8 mg Piperacillin Sod/Tazobactam (Sod 3.375 gm/ Dextrose) 50 mls @ 100 mls/hr IVPB Q8H-IV [facility]; Protocol Last Admin: 09/22/19 09:51 Dose: 100 mls/hr Lorazepam (Ativan Injection -) 1 mg IVPUSH TID PRN PRN Reason: ANXIETY Last Admin: 09/22/19 08:18 Dose: 1 mg Melatonin (Melatonin) 10 mg PO HS PRN PRN Reason: INSOMNIA Last Admin: 09/21/19 20:59 Dose: 10 mg Miscellaneous (Duragesic Patch Waste) 1 each TD PRN PRN PRN Reason: PAIN Mupirocin (Bactroban 2% Ointment -) 1 applic TP BID [facility] Last Admin: 09/22/19 09:54 Dose: 1 applic Ondansetron HCl (Zofran Injection) 4 mg IVPUSH Q6H PRN PRN Reason: NAUSEA AND/OR VOMITING Last Admin: 09/20/19 23:18 Dose: 4 mg Ondansetron HCl (Zofran Injection) 4 mg IVPUSH Q4H PRN PRN Reason: NAUSEA AND/OR VOMITING Polyethylene Glycol (Miralax (For Daily Use) -) 17 gm PO BID [facility] Last Admin: 09/22/19 09:10 Dose: Not Given Promethazine HCl (Phenergan Injection -) 12.5 mg IVPB Q6H PRN PRN Reason: NAUSEA AND/OR VOMITING ASSESSMENT AND PLAN: Progressive Kyphoscoliosis s/p T1-T3 Laminectomies/C7-T4 Fusion/T8-S1 Posterior Instrumentation/Arthrodesis Anemia Acute Hypoxic Respiratory Failure Volume Overload Pleural Effusions r/o Pneumonia - continue antibiotics - taper HFOT to keep SpO2 >90% - continue lasix - monitor urine output, creatinine - keep net negative - pain control - incentive spirometry - PO as tolerated - antiemetics - activity/diet/DVT prophylaxis per surgery - continue ICU monitoring
[2019-09-22] MEDS ORDERED: FUROSEMIDE 40 MG/4 ML INJECTABLE VIAL IVPUSH ONE ×2 (10:31→19:21)
[2019-09-22] MEDS ORDERED: ZOLPIDEM TARTRATE 5 MG TABLET PO PRN (10:31)
--- NOTE | 2019-09-22 11:35 | PN ---
Physical Exam: SUBJECTIVE:Patient seen and examined by the bedside. Complains of generalized agitation and restlessness, as well as insomnia. No other complaints. OBJECTIVE: Vital Signs Period Temp Pulse Resp BP Sys/Gallagher Pulse Ox Last 24 Hr 97.7 F-99.4 F 71-95 13-18 90-118/48-75 GENERAL: The patient is AOx3, and fully oriented, pain well controlled HEAD: Normal with no signs of trauma. EYES: PERRL, extraocular movements intact, sclera anicteric, conjunctiva clear. No ptosis. LUNGS: Breath sounds equal, clear to auscultation bilaterally, no wheezes, no crackles, no accessory muscle use. HEART: Regular rate and rhythm, S1, S2 without murmur, rub or gallop. ABDOMEN: Soft, nontender, nondistended, normoactive bowel sounds, no guarding, no rebound, no hepatosplenomegaly, no masses. EXTREMITIES: 2+ pulses, warm, well-perfused, no edema. NEUROLOGICAL: Motor strength upper limb 3/5, lower limb 1/5, sensations intact in all extremities Laboratory Results - last 24 hr 09/21/19 09/22/19 09/22/19 18:00 05:30 05:30 WBC 9.8 RBC 3.01 L Hgb 9.1 L Hct 26.9 L D MCV 89.6 MCH 30.1 MCHC 33.6 RDW 14.3 Plt Count 665 H D MPV 7.3 L Absolute Neuts (auto) 7.1 Neutrophils % 71.9 Lymphocytes % 16.7 Monocytes % 4.8 Eosinophils % 6.2 H Basophils % 0.4 Nucleated RBC % 0 Sodium 139 140 Potassium 4.0 3.8 Chloride 99 98 Carbon Dioxide 35 H 37 H Anion Gap 5 L 4 L BUN 11.2 11.0 Creatinine 0.5 L 0.6 Est GFR (CKD-EPI)AfAm 124.52 117.27 Est GFR (CKD-EPI)NonAf 107.44 101.18 Random Glucose 104 92 Calcium 7.8 L 8.5 Phosphorus 3.6 Magnesium 2.0 Total Bilirubin 0.3 0.3 AST 23 18 ALT 39 33 Alkaline Phosphatase 359 H 346 H Total Protein 5.9 L 6.3 L Albumin 1.9 L 2.1 L Active Medications Generic Name Dose Route Start Last Admin Trade Name Freq PRN Reason Stop Dose Admin Acetaminophen 1,000 mg 09/21/19 14:52 09/22/19 07:50 Ofirmev Injection - IVPB 1,000 mg Q6H PRN Administration PAIN LEVEL 1-5 Amitriptyline HCl 100 mg 09/10/19 16:26 09/21/19 21:02 Elavil - PO 100 mg HS ARNIE Administration Benzocaine/Menthol 1 each 09/17/19 12:19 09/17/19 17:36 Cepacol Lozenge - MM 1 each PRN PRN Administration SORE THROAT Cyclobenzaprine HCl 10 mg 09/21/19 12:45 09/21/19 21:00 Flexeril - PO 10 mg BID ARNIE Administration Dexamethasone Sodium Phosphate 4 mg 09/11/19 18:40 Decadron Injection - IVPUSH ONCE PRN NAUSEA AND/OR VOMITING Diphenhydramine HCl 50 mg 09/15/19 10:00 09/21/19 21:00 Benadryl - PO 50 mg BID ARNIE Administration Fentanyl 1 patch 09/21/19 22:30 09/21/19 23:00 Duragesic 50mcg Patch - TD 09/22/19 22:29 Not Given Q72H ARNIE Gabapentin 600 mg 09/13/19 14:00 09/22/19 06:13 Neurontin - PO 600 mg TID ARNIE Administration Hydromorphone HCl 8 mg 09/22/19 07:58 09/22/19 08:09 Dilaudid - PO 8 mg Q6H PRN Administration PAIN LEVEL 6-10 Piperacillin Sod/Tazobactam 50 mls @ 100 mls/hr 09/18/19 18:00 09/22/19 09:51 Sod 3.375 gm/ Dextrose IVPB 100 mls/hr Q8H-IV ARNIE Administration Protocol Lorazepam 1 mg 09/21/19 22:50 09/22/19 08:18 Ativan Injection - IVPUSH 1 mg TID PRN Administration ANXIETY Melatonin 10 mg 09/19/19 19:22 09/21/19 20:59 Melatonin PO 10 mg HS PRN Administration INSOMNIA Miscellaneous 1 each 09/21/19 22:19 Duragesic Patch Waste TD PRN PRN PAIN Mupirocin 1 applic 09/15/19 10:45 09/22/19 09:54 Bactroban 2% Ointment - TP 1 applic BID ARNIE Administration Ondansetron HCl 4 mg 09/09/19 16:47 09/20/19 23:18 Zofran Injection IVPUSH 4 mg Q6H PRN Administration NAUSEA AND/OR VOMITING Ondansetron HCl 4 mg 09/11/19 18:40 Zofran Injection IVPUSH Q4H PRN NAUSEA AND/OR VOMITING Oxycodone HCl 30 mg 09/22/19 10:32 Roxicodone - PO Q8H PRN PAIN LEVEL 7 - 10 Polyethylene Glycol 17 gm 09/17/19 22:00 09/22/19 09:10 Miralax (For Daily Use) - PO Not Given BID ARNIE Promethazine HCl 12.5 mg 09/11/19 18:43 Phenergan Injection - IVPB Q6H PRN NAUSEA AND/OR VOMITING Zolpidem Tartrate 10 mg 09/22/19 10:31 Ambien - PO 09/23/19 10:30 HS PRN INSOMNIA ASSESSMENT/PLAN: This is a 59 YO F with PMH significant for MS, recurrent spinal stenosis and multiple spinal surgeries, complex global myofascial pain syndrome, and mechanical thoracolumbar instability. She was admitted for spinal surgery including inspection fusion mass (c-spine), T1-3 laminectomies, C7-T4 in situ fusion, inspection fusion mass (thoracolumbar spine), posterior instrumentation T8-S1, posterior arthrodesis T8-S1, bone allograft, bone autograft, and complex wound closure, and is currently POD 12, pending [place] procedure. #Respiratory - LIPS score (Lung Injury Prediction Score) is 4.5, over 4 predicts ARDS with specificity of 78% (ortho surgery 1.5, obesity 1, hypoalbuminemia 1, FiO2 > 0.35 1) - CXR: Improved aeration today compared to yesterday - Lasix 40mg IVPUSH BID - Hi flow O2 40% O2 @ 30L/h. Attempted to wean to 30/30, but patient was desatting at high 80s - I/O monitoring, 4L output yesterday - Incentive spirometery #Neuro - Lorazepam 1mg IV HS PRN - Ambien 10mh PO HS PRN for insomnia - Dilaudid 8mg Q6H PO PRN and Oxycodone 30mg Q8H PO PRN for pain - Benadryl 50mg PO BID - Amytriptyline 100mg PO HS - Nasuea: Promethazine 12.5mg IV Q6H PRN and Zofran 4mg IV Q4H PRN #Ortho - Aguilar's slide procedure tomorrow - Gabapentin 600mg PO TID - PT eval daily: No bending, lifting (>5 lbs), or twisting for 9-12 months, f/u 7-10 days after rehab d/c #ID - Has been afebrile - WBC 9.8 - Blood cx no growth, urine cx contaminated - Zosyn 3.375mg Q8H day 2 - ID on board #GI - Alk Phos 375 -> 359 -> 346 - FOBT neg 09/20 - Miralax 17mg BID #Renal - BUN/Cr 11.0/0.6 - I/O monitoring #Heme - Hg/Hct 7.8/23.2 -> 9.1/26 - Type and screen ordered for pre-op prep tomorrow #FEN - NPO after midnight to prepare for surgery tomorrow #DVT PE - SCDs - Duplex B/L showed no evidence of DVT #Dispo: - Monitor in ICU til then Visit type - Emergency Visit Emergency Visit: Yes ED Registration Date: 09/09/19 Care time: The patient presented to the Emergency Department on the above date and was hospitalized for further evaluation of their emergent condition. - New Patient This patient is new to me today: No - Critical Care Critical Care patient: Yes Total Critical Care Time (in minutes): 37 Critical Care Statement: The care of this patient involved high complexity decision making to prevent further life threatening deterioration of the patient 's condition and/or to evaluate & treat vital organ system(s) failure or risk of failure. ATTENDING PHYSICIAN STATEMENT I saw and evaluated the patient. I reviewed the resident's note and discussed the case with the resident. I agree with the resident's findings and plan as documented. SUBJECTIVE: OBJECTIVE: ASSESSMENT AND PLAN:
[2019-09-22] MEDS: CYCLOBENZAPRINE HCL 10 MG TABLET (FP) PO SCH ×2 (12:10→21:11)
[2019-09-22] MEDS: diphenhydrAMINE HCL 25 MG CAPSULE (FP) PO SCH ×2 (12:10→21:11)
--- NOTE | 2019-09-22 13:06 | PN ---
Progress Note (short form) - Note Progress Note: Neurology HISTORY OF PRESENT ILLNESS: 59 y/o female with hx of multiple (~30) back and spine surgeries, complex global myofascial pain syndrome, recurrent spinal stenosis, multiple sclerosis, mechanical thoracolumbar instability, admitted for surgical intervention and per notes completed: 1) inspection fusion mass (c-spine), 2) T1-3 laminectomies, 3) C7-T4 in situ fusion, 4) Inspection fusion mass (thoracolumbar spine), 5) posterior instrumentation T8-S1, 6) posteroir arthrodesis T8-S1, 7) bone allograft, 8) bone autograft, 9) complex wound closure (60cm). 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 Complaints of pain and pain mgmt has been consulted. Extensive conversation regarding her MS history which dates back to >10 years and reports previously on BetaSeron but felt no difference. States last MRI brain was 1 year ago, offered repeat which patient would like to defer and reports prior imaging stable and states she will not be able to stay flat and tolerate procedure. She does not want to start on MS meds and would like to focus on spinal mgmt at this time. As outpatient, would advise MRI brain with and without contrast to start with. Was being plaaned for aguilar slide bilterally for feet but with temperature spikes. This morning respiration seem to be normalized andjust using nasal cannula as opposed to face mask that she was requiring yesterday. No longer tachycardic also slightly hypotensive which she reports is her baseline blood pressure. Unclear of whether procedure will be completed but patient does appear to have spin stabilized in terms her respiratory status. Patient reported RLE muscle spasms, requested Flexiril. Added to regiment, no mental status change. Reports spasms improved. Informed hospitalist that if any issues with the medication can be d/donna. Ortho following and managing regiment. Active Medications Acetaminophen (Ofirmev Injection -) 1,000 mg IVPB Q6H PRN PRN Reason: PAIN LEVEL 1-5 Last Admin: 09/22/19 07:50 Dose: 1,000 mg Amitriptyline HCl (Elavil -) 100 mg PO HS ARNIE Last Admin: 09/21/19 21:02 Dose: 100 mg Benzocaine/Menthol (Cepacol Lozenge -) 1 each MM PRN PRN PRN Reason: SORE THROAT Last Admin: 09/17/19 17:36 Dose: 1 each Cyclobenzaprine HCl (Flexeril -) 10 mg PO BID [facility] Last Admin: 09/22/19 12:10 Dose: 10 mg Dexamethasone Sodium Phosphate (Decadron Injection -) 4 mg IVPUSH ONCE PRN PRN Reason: NAUSEA AND/OR VOMITING Diphenhydramine HCl (Benadryl -) 50 mg PO BID [facility] Last Admin: 09/22/19 12:10 Dose: 50 mg Fentanyl (Duragesic 50mcg Patch -) 1 patch TD Q72H [facility] Stop: 09/22/19 22:29 Last Admin: 09/21/19 23:00 Dose: Not Given Gabapentin (Neurontin -) 600 mg PO TID [facility] Last Admin: 09/22/19 06:13 Dose: 600 mg Hydromorphone HCl (Dilaudid -) 8 mg PO Q6H PRN PRN Reason: PAIN LEVEL 6-10 Last Admin: 09/22/19 08:09 Dose: 8 mg Piperacillin Sod/Tazobactam (Sod 3.375 gm/ Dextrose) 50 mls @ 100 mls/hr IVPB Q8H-IV ARNIE; Protocol Last Admin: 09/22/19 09:51 Dose: 100 mls/hr Lorazepam (Ativan Injection -) 1 mg IVPUSH TID PRN PRN Reason: ANXIETY Last Admin: 09/22/19 08:18 Dose: 1 mg Melatonin (Melatonin) 10 mg PO HS PRN PRN Reason: INSOMNIA Last Admin: 09/21/19 20:59 Dose: 10 mg Miscellaneous (Duragesic Patch Waste) 1 each TD PRN PRN PRN Reason: PAIN Mupirocin (Bactroban 2% Ointment -) 1 applic TP BID [facility] Last Admin: 09/22/19 09:54 Dose: 1 applic Ondansetron HCl (Zofran Injection) 4 mg IVPUSH Q6H PRN PRN Reason: NAUSEA AND/OR VOMITING Last Admin: 09/20/19 23:18 Dose: 4 mg Ondansetron HCl (Zofran Injection) 4 mg IVPUSH Q4H PRN PRN Reason: NAUSEA AND/OR VOMITING Oxycodone HCl (Roxicodone -) 30 mg PO Q8H PRN PRN Reason: PAIN LEVEL 7 - 10 Polyethylene Glycol (Miralax (For Daily Use) -) 17 gm PO BID ARNIE Last Admin: 09/22/19 09:10 Dose: Not Given Promethazine HCl (Phenergan Injection -) 12.5 mg IVPB Q6H PRN PRN Reason: NAUSEA AND/OR VOMITING Zolpidem Tartrate (Ambien -) 10 mg PO HS PRN PRN Reason: INSOMNIA Stop: 09/23/19 10:30 PHYSICAL EXAMINATION Vital Signs Period Temp Pulse Resp BP Sys/Gallagher Pulse Ox Last 24 Hr 97.7 F-99.4 F 71-95 14-18 90-118/48-68 GENERAL: Awake, alert, and fully oriented, in no acute distress. HEAD: Normal with no signs of trauma. EYES: Pupils equal, round and reactive to light, extraocular movements intact, sclera anicteric, conjunctiva clear. No lid lag. EARS, NOSE, THROAT: Ears normal, nares patent, oropharynx clear without exudates. Moist mucous membranes. NECK: Normal range of motion, supple without lymphadenopathy, JVD, or masses. LUNGS: Breath sounds equal, clear to auscultation bilaterally. No wheezes, and no crackles. No accessory muscle use. HEART: Regular rate and rhythm, normal S1 and S2 without murmur, rub or gallop. ABDOMEN: Soft, nontender, not distended, normoactive bowel sounds, no guarding, no rebound, no masses. No hepatomegaly or splenomegaly. MUSCULOSKELETAL: Normal range of motion at all joints. No bony deformities or tenderness. No CVA tenderness. UPPER EXTREMITIES: 2+ pulses, warm, well-perfused. No cyanosis. No clubbing. Cap refill <2 seconds. No peripheral edema. LOWER EXTREMITIES: 2+ pulses, warm, well-perfused. No calf tenderness. No peripheral edema. NEUROLOGICAL: Cranial nerves II-XII intact. Normal speech. Normal gait. PSYCHIATRIC: Cooperative. Good eye contact. Appropriate mood and affect. SKIN: Warm, dry, normal turgor, no rashes or lesions noted. 2 CBCD WBC 9.8 K/mm3 (4.0-10.0) 09/22/19 05:30 RBC 3.01 M/mm3 (3.60-5.2) L 09/22/19 05:30 Hgb 9.1 GM/dL (10.7-15.3) L 09/22/19 05:30 Hct 26.9 % (32.4-45.2) L D 09/22/19 05:30 MCV 89.6 fl (80-96) 09/22/19 05:30 MCHC 33.6 g/dl (32.0-36.0) 09/22/19 05:30 RDW 14.3 % (11.6-15.6) 09/22/19 05:30 Plt Count 665 K/MM3 (134-434) H D 09/22/19 05:30 MPV 7.3 fl (7.5-11.1) L 09/22/19 05:30 CMP Sodium 140 mmol/L (136-145) 09/22/19 05:30 Potassium 3.8 mmol/L (3.5-5.1) 09/22/19 05:30 Chloride 98 mmol/L (98-107) 09/22/19 05:30 Carbon Dioxide 37 mmol/L (21-32) H 09/22/19 05:30 Anion Gap 4 MMOL/L (8-16) L 09/22/19 05:30 BUN 11.0 mg/dL (7-18) 09/22/19 05:30 Creatinine 0.6 mg/dL (0.55-1.3) 09/22/19 05:30 Random Glucose 92 mg/dL (74-106) 09/22/19 05:30 Calcium 8.5 mg/dL (8.5-10.1) 09/22/19 05:30 Total Bilirubin 0.3 mg/dL (0.2-1) 09/22/19 05:30 AST 18 U/L (15-37) 09/22/19 05:30 ALT 33 U/L (13-61) 09/22/19 05:30 Alkaline Phosphatase 346 U/L (45-117) H 09/22/19 05:30 Total Protein 6.3 g/dl (6.4-8.2) L 09/22/19 05:30 Albumin 2.1 g/dl (3.4-5.0) L 09/22/19 05:30 ASSESSMENT/PLAN: 59 y/o female with hx of multiple (~30) back and spine surgeries, complex global myofascial pain syndrome, recurrent spinal stenosis, multiple sclerosis, mechanical thoracolumbar instability, POD #0 s/p 1) inspection fusion mass (c- spine), 2) T1-3 laminectomies, 3) C7-T4 in situ fusion, 4) Inspection fusion mass (thoracolumbar spine), 5) posterior instrumentation T8-S1, 6) posteroir arthrodesis T8-S1, 7) bone allograft, 8) bone autograft, 9) complex wound closure (60cm). 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 Complaints of pain and pain mgmt has been consulted. Extensive conversation regarding her MS history which dates back to > 10 years and reports previously on BetaSeron but felt no difference. States last MRI brain was 1 year ago, offered repeat which patient would like to defer and reports prior imaging stable and states she will not be able to stay flat and tolerate procedure. She does not want to start on MS meds and would like to focus on spinal mgmt at this time. As outpatient, would advise MRI brain with and without contrast to start with. Was being plaaned for aguilar slide bilterally for feet but with temperature spikes. This morning respiration seem to be normalized andjust using nasal cannula as opposed to face mask that she was requiring yesterday. No longer tachycardic also slightly hypotensive which she reports is her baseline blood pressure. Unclear of whether procedure will be completed but patient does appear to have spin stabilized in terms her respiratory status. Patient reported RLE muscle spasms, requested Flexiril. Added to regiment, no mental status change. Reports spasms improved. Informed hospitalist that if any issues with the medication can be d/donna. Ortho following and managing regiment. Continue orthopedic follow-up, caution with pain medications, continue monitor respiratory optimization. Notes reviewed. Possibly for Aguilar procedure on Monday per patient. Will continue to monitor. Critical care time 35 mins.
--- NOTE | 2019-09-22 13:28 | PN ---
Progress Note (short form) - Note Progress Note: SUBJECTIVE: Awake, alert, responsive, answers questions appropriately. Lethargy and agitation resolved. No complaints. OBJECTIVE: Fever resolved. Hemodynamically Stable. AAO x 3. SpO2 99% on High Flow O2 via NC, FiO2 40% Last Vital Signs Temp Pulse Resp BP Pulse Ox 97.7 F 71 15 101/57 L 99 09/22/19 08:00 09/22/19 08:00 09/22/19 09:00 09/22/19 08:00 09/21/19 08:39 Heart - S1, S2, RRR Lungs - bilateral lower zone crackles improving Abdomen - Soft, non-tender. Bowel Sounds normal. Extremities - no edema, no calf tenderness. Laboratory Results - last 24 hr 09/21/19 09/22/19 09/22/19 18:00 05:30 05:30 WBC 9.8 RBC 3.01 L Hgb 9.1 L Hct 26.9 L D MCV 89.6 MCH 30.1 MCHC 33.6 RDW 14.3 Plt Count 665 H D MPV 7.3 L Absolute Neuts (auto) 7.1 Neutrophils % 71.9 Lymphocytes % 16.7 Monocytes % 4.8 Eosinophils % 6.2 H Basophils % 0.4 Nucleated RBC % 0 Sodium 139 140 Potassium 4.0 3.8 Chloride 99 98 Carbon Dioxide 35 H 37 H Anion Gap 5 L 4 L BUN 11.2 11.0 Creatinine 0.5 L 0.6 Est GFR (CKD-EPI)AfAm 124.52 117.27 Est GFR (CKD-EPI)NonAf 107.44 101.18 Random Glucose 104 92 Calcium 7.8 L 8.5 Phosphorus 3.6 Magnesium 2.0 Total Bilirubin 0.3 0.3 AST 23 18 ALT 39 33 Alkaline Phosphatase 359 H 346 H Total Protein 5.9 L 6.3 L Albumin 1.9 L 2.1 L Current Medications Generic Name Dose Route Start Last Admin Trade Name Freq PRN Reason Stop Dose Admin Acetaminophen 1,000 mg 09/21/19 14:52 09/22/19 07:50 Ofirmev Injection - IVPB 1,000 mg Q6H PRN Administration PAIN LEVEL 1-5 Amitriptyline HCl 100 mg 09/10/19 16:26 09/21/19 21:02 Elavil - PO 100 mg HS ARNIE Administration Benzocaine/Menthol 1 each 09/17/19 12:19 09/17/19 17:36 Cepacol Lozenge - MM 1 each PRN PRN Administration SORE THROAT Cyclobenzaprine HCl 10 mg 09/21/19 12:45 09/22/19 12:10 Flexeril - PO 10 mg BID ARNIE Administration Dexamethasone Sodium Phosphate 4 mg 09/11/19 18:40 Decadron Injection - IVPUSH ONCE PRN NAUSEA AND/OR VOMITING Diphenhydramine HCl 50 mg 09/15/19 10:00 09/22/19 12:10 Benadryl - PO 50 mg BID ARNIE Administration Fentanyl 1 patch 09/21/19 22:30 09/21/19 23:00 Duragesic 50mcg Patch - TD 09/22/19 22:29 Not Given Q72H ARNIE Gabapentin 600 mg 09/13/19 14:00 09/22/19 06:13 Neurontin - PO 600 mg TID ARNIE Administration Hydromorphone HCl 8 mg 09/22/19 07:58 09/22/19 08:09 Dilaudid - PO 8 mg Q6H PRN Administration PAIN LEVEL 6-10 Piperacillin Sod/Tazobactam 50 mls @ 100 mls/hr 09/18/19 18:00 09/22/19 09:51 Sod 3.375 gm/ Dextrose IVPB 100 mls/hr Q8H-IV ARNIE Administration Protocol Lorazepam 1 mg 09/21/19 22:50 09/22/19 08:18 Ativan Injection - IVPUSH 1 mg TID PRN Administration ANXIETY Melatonin 10 mg 09/19/19 19:22 09/21/19 20:59 Melatonin PO 10 mg HS PRN Administration INSOMNIA Miscellaneous 1 each 09/21/19 22:19 Duragesic Patch Waste TD PRN PRN PAIN Mupirocin 1 applic 09/15/19 10:45 09/22/19 09:54 Bactroban 2% Ointment - TP 1 applic BID ARNIE Administration Ondansetron HCl 4 mg 09/09/19 16:47 09/20/19 23:18 Zofran Injection IVPUSH 4 mg Q6H PRN Administration NAUSEA AND/OR VOMITING Ondansetron HCl 4 mg 09/11/19 18:40 Zofran Injection IVPUSH Q4H PRN NAUSEA AND/OR VOMITING Oxycodone HCl 30 mg 09/22/19 10:32 Roxicodone - PO Q8H PRN PAIN LEVEL 7 - 10 Polyethylene Glycol 17 gm 09/17/19 22:00 09/22/19 09:10 Miralax (For Daily Use) - PO Not Given BID ARNIE Promethazine HCl 12.5 mg 09/11/19 18:43 Phenergan Injection - IVPB Q6H PRN NAUSEA AND/OR VOMITING Zolpidem Tartrate 10 mg 09/22/19 10:31 Ambien - PO 09/23/19 10:30 HS PRN INSOMNIA ASSESSMENT AND PLAN: 59 year old female with history of MS, recurrent lumbar spinal stenosis, s/p multiple back surgeries, complex global myofascial pain syndrome, mechanical thoracolumbar instability, admitted for spine surgery. POD 13 s/p 1. Inspection fusion mass (cervical spine). 2. T1, T2, T3 laminectomies. 3. C7 -T4 in situ fusion. 4. Inspection fusion mass (thoracolumbar spine). 5. Posterior instrumentation T8-S1. 6. Posterior arthrodesis T8-S1. 7. Bone allograft. 8. Bone autograft. 9. Complex wound closure 1. 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 Dilaudid PRN for pain management. Contiue Elavil, Neurontin, Ativan PRN Deferral of Aguilar's procedure planned for achilles tendon release due to fever, mental status change and hypoxic resp failure. Further management as per Ortho. 2. Acute Hypoxic respiratory failure and Sepsis secondary to Pneumonia +/- ARDS Continue high flow via NC. Clinically improving. Fever resolved. attempt to wean down supplemental HFO2. CTA Chest neg for PE but shows bilateral interstitial infiltrates + fluid ? Pneumonia +/- ARDS Responding to IV lasix. Repeat CXR shows improved aeration. Blood Cx neg. Urine Cx contaminated. Continue IV Zosyn for HCAP. Further Abx therapy as per ID Monitor respiratory status. 3. Acute Metabolic Encephalopathy secondary to Hypoxia + Sepsis - much improved/ significantly resolved. AAO x 3, agitation/confusion resolved. Dilaudid UTILIZATION MANAGEMENT MANAGER held. Will monitor. No focal deficits. IRVING. Moving extremities. Resumed on reduced dose of Ativan, which patient takes chronically for anxiety. 4. Anemia - normocytic s/p spinal surgery. No evidence of ongoing blood loss Will monitor H/H and transfuse if necessary. 5. Hypokalemia - repleted. DVT Px - SCDs Visit type - Emergency Visit Emergency Visit: Yes ED Registration Date: 09/09/19 Care time: The patient presented to the Emergency Department on the above date and was hospitalized for further evaluation of their emergent condition. - New Patient This patient is new to me today: No - Critical Care Critical Care patient: Yes Total Critical Care Time (in minutes): 40 Critical Care Statement: The care of this patient involved high complexity decision making to prevent further life threatening deterioration of the patient 's condition and/or to evaluate & treat vital organ system(s) failure or risk of failure. - Discharge Referral Referred to [facility] No
[2019-09-22] MEDS ORDERED: DEXTROSE 5%-WATER - 100 ML IVPB ONE (17:34)
[2019-09-22 20:55] LABS: INR 1.17 (0.83-1.09); PROTHROMBIN TIME (PATIENT) 13.8 SEC (9.7-13.0)
[2019-09-22 20:58] LABS: ACTIVATED PTT 31.9 SECONDS (25.2-36.5)
[2019-09-22] MEDS: MELATONIN 5 MG TABLETS PO PRN (21:09)
[2019-09-22] MEDS: AMITRIPTYLINE HCL 25 MG TABLET (FP) PO SCH (21:38)
[2019-09-23] MEDS ORDERED: PIPERACILLIN/TAZOBACTAM 3.375 GM VIAL IVPB ONE ×3 (00:39→16:21)
[2019-09-23] MEDS ORDERED: DEXTROSE 5%-WATER - 50 ML IVPB ONE ×3 (00:39→16:21)
[2019-09-23] MEDS: PIPERACILLIN/TAZOB 3.375 GM 3.375 GM in DEXTROSE 5%-WATER - 50 ML IVPB SCH ×3 (01:00→18:07)
[2019-09-23] MEDS ORDERED: LORazepam 2 MG/ML SDV VIAL ONE (03:11)
[2019-09-23] MEDS ORDERED: LORazepam 2 MG/ML SDV VIAL IVPUSH ONE (03:15)
[2019-09-23] MEDS: GABAPENTIN 300 MG CAPSULE (FP) PO SCH ×3 (06:26→21:02)
[2019-09-23 06:54] LABS: ALBUMIN 2.1 g/dl (3.4-5.0); BILIRUBIN,TOTAL 0.3 mg/dL (0.2-1); BLOOD UREA NITROGEN 11.2 mg/dL (7-18); CALCIUM 8.7 mg/dL (8.5-10.1); CREATININE 0.5 mg/dL (0.55-1.3); POTASSIUM 4.4 mmol/L (3.5-5.1); TOT PROT 6.6 g/dl (6.4-8.2)
[2019-09-23 07:12] LABS: INR 1.14 (0.83-1.09); PROTHROMBIN TIME (PATIENT) 13.5 SEC (9.7-13.0)
[2019-09-23] MEDS ORDERED: ACETAMINOPHEN 1000 MG/100 ML VIAL (NON FORMULARY) IVPB ONE (07:54)
[2019-09-23] MEDS ORDERED: HYDROmorphone HCl 2 MG/ML VIAL IVPB ONE ×2 (07:54→11:00)
[2019-09-23 08:47] LABS: BASO % 0.6 % (0-2.0); EOS % 6.6 % (0-4.5); HEMATOCRIT 29.3 % (32.4-45.2); HEMOGLOBIN 9.7 GM/dL (10.7-15.3); LYMPH % 21.8 % (8-40); MCH 29.8 pg (25.7-33.7); MCHC 33.2 g/dl (32.0-36.0); MEAN CELL VOLUME 89.7 fl (80-96); MEAN PLT VOLUME 7.5 fl (7.5-11.1); MONO % 4.1 % (3.8-10.2); NEUT % 66.9 % (42.8-82.8); PLATELET COUNT 727 K/MM3 (134-434); RBC 3.26 M/mm3 (3.60-5.2); RDW 14.3 % (11.6-15.6); WHITE BLOOD COUNT 9.8 K/mm3 (4.0-10.0)
--- NOTE | 2019-09-23 09:00 | PN ---
Progress Note (short form) - Note Progress Note: Neurology HISTORY OF PRESENT ILLNESS: 59 y/o female with hx of multiple (~30) back and spine surgeries, complex global myofascial pain syndrome, recurrent spinal stenosis, multiple sclerosis, mechanical thoracolumbar instability, admitted for surgical intervention and per notes completed: 1) inspection fusion mass (c-spine), 2) T1-3 laminectomies, 3) C7-T4 in situ fusion, 4) Inspection fusion mass (thoracolumbar spine), 5) posterior instrumentation T8-S1, 6) posteroir arthrodesis T8-S1, 7) bone allograft, 8) bone autograft, 9) complex wound closure (60cm). 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 Complaints of pain and pain mgmt has been consulted. Extensive conversation regarding her MS history which dates back to >10 years and reports previously on BetaSeron but felt no difference. States last MRI brain was 1 year ago, offered repeat which patient would like to defer and reports prior imaging stable and states she will not be able to stay flat and tolerate procedure. She does not want to start on MS meds and would like to focus on spinal mgmt at this time. As outpatient, would advise MRI brain with and without contrast to start with. Was being plaaned for ruff slide bilterally for feet but with temperature spikes. This morning respiration seem to be normalized andjust using nasal cannula as opposed to face mask that she was requiring yesterday. No longer tachycardic also slightly hypotensive which she reports is her baseline blood pressure. Unclear of whether procedure will be completed but patient does appear to have spin stabilized in terms her respiratory status. Patient reported RLE muscle spasms, requested Flexiril. Added to regiment, no mental status change. THis AM, seen at bedside with ID specialist and patient with increasing white blood cell count, yesterday 11, today 12.. Discussed with nursing patient remains nothing by mouth for possible procedure though may be put on hold due to concern for leukocytosis. Patient seemed frustrated with hospital course and not having significant improvement. Active Medications Amitriptyline HCl (Elavil -) 100 mg PO HS [facility] Last Admin: 09/22/19 21:38 Dose: 100 mg Benzocaine/Menthol (Cepacol Lozenge -) 1 each MM PRN PRN PRN Reason: SORE THROAT Last Admin: 09/17/19 17:36 Dose: 1 each Cyclobenzaprine HCl (Flexeril -) 10 mg PO BID [facility] Last Admin: 09/22/19 21:11 Dose: 10 mg Dexamethasone Sodium Phosphate (Decadron Injection -) 4 mg IVPUSH ONCE PRN PRN Reason: NAUSEA AND/OR VOMITING Diphenhydramine HCl (Benadryl -) 50 mg PO BID [facility] Last Admin: 09/22/19 21:11 Dose: 50 mg Gabapentin (Neurontin -) 600 mg PO TID [facility] Last Admin: 09/23/19 06:26 Dose: 600 mg Hydromorphone HCl (Dilaudid -) 8 mg PO Q6H PRN PRN Reason: PAIN LEVEL 6-10 Last Admin: 09/23/19 02:57 Dose: 8 mg Piperacillin Sod/Tazobactam (Sod 3.375 gm/ Dextrose) 50 mls @ 100 mls/hr IVPB Q8H-IV [facility]; Protocol Last Admin: 09/23/19 01:00 Dose: 100 mls/hr Lorazepam (Ativan Injection -) 1 mg IVPUSH TID PRN PRN Reason: ANXIETY Last Admin: 09/22/19 21:09 Dose: 1 mg Melatonin (Melatonin) 10 mg PO HS PRN PRN Reason: INSOMNIA Last Admin: 09/22/19 21:09 Dose: 10 mg Miscellaneous (Duragesic Patch Waste) 1 each TD PRN PRN PRN Reason: PAIN Mupirocin (Bactroban 2% Ointment -) 1 applic TP BID [facility] Last Admin: 09/22/19 21:11 Dose: 1 applic Ondansetron HCl (Zofran Injection) 4 mg IVPUSH Q6H PRN PRN Reason: NAUSEA AND/OR VOMITING Last Admin: 09/20/19 23:18 Dose: 4 mg Ondansetron HCl (Zofran Injection) 4 mg IVPUSH Q4H PRN PRN Reason: NAUSEA AND/OR VOMITING Oxycodone HCl (Roxicodone -) 30 mg PO Q8H PRN PRN Reason: PAIN LEVEL 7 - 10 Polyethylene Glycol (Miralax (For Daily Use) -) 17 gm PO BID [facility] Last Admin: 09/22/19 21:11 Dose: Not Given Promethazine HCl (Phenergan Injection -) 12.5 mg IVPB Q6H PRN PRN Reason: NAUSEA AND/OR VOMITING Zolpidem Tartrate (Ambien -) 10 mg PO HS PRN PRN Reason: INSOMNIA Stop: 09/23/19 10:30 Last Admin: 09/22/19 21:35 Dose: 10 mg PHYSICAL EXAMINATION Vital Signs Period Temp Pulse Resp BP Sys/Gallagher Pulse Ox Last 24 Hr 97.7 F-98.9 F 70-80 14-20 90-111/48-73 93 GENERAL: Awake, alert, and fully oriented, in no acute distress. HEAD: Normal with no signs of trauma. EYES: Pupils equal, round and reactive to light, extraocular movements intact, sclera anicteric, conjunctiva clear. No lid lag. EARS, NOSE, THROAT: Ears normal, nares patent, oropharynx clear without exudates. Moist mucous membranes. NECK: Normal range of motion, supple without lymphadenopathy, JVD, or masses. LUNGS: Breath sounds equal, clear to auscultation bilaterally. No wheezes, and no crackles. No accessory muscle use. HEART: Regular rate and rhythm, normal S1 and S2 without murmur, rub or gallop. ABDOMEN: Soft, nontender, not distended, normoactive bowel sounds, no guarding, no rebound, no masses. No hepatomegaly or splenomegaly. MUSCULOSKELETAL: Normal range of motion at all joints. No bony deformities or tenderness. No CVA tenderness. UPPER EXTREMITIES: 2+ pulses, warm, well-perfused. No cyanosis. No clubbing. Cap refill <2 seconds. No peripheral edema. LOWER EXTREMITIES: 2+ pulses, warm, well-perfused. No calf tenderness. No peripheral edema. NEUROLOGICAL: Cranial nerves II-XII intact. Normal speech. Normal gait. PSYCHIATRIC: Cooperative. Good eye contact. Appropriate mood and affect. SKIN: Warm, dry, normal turgor, no rashes or lesions noted. 2 CBCD WBC 19.4 K/mm3 (4.0-10.0) H 09/23/19 05:20 RBC 3.46 M/mm3 (3.60-5.2) L 09/23/19 05:20 Hgb 10.0 GM/dL (10.7-15.3) L 09/23/19 05:20 Hct 29.7 % (32.4-45.2) L 09/23/19 05:20 MCV 85.7 fl (80-96) 09/23/19 05:20 MCHC 33.5 g/dl (32.0-36.0) 09/23/19 05:20 RDW 14.4 % (11.6-15.6) 09/23/19 05:20 Plt Count 380 K/MM3 (134-434) D 09/23/19 05:20 MPV 7.9 fl (7.5-11.1) 09/23/19 05:20 CMP Sodium 138 mmol/L (136-145) 09/23/19 05:15 Potassium 4.4 mmol/L (3.5-5.1) 09/23/19 05:15 Chloride 98 mmol/L (98-107) 09/23/19 05:15 Carbon Dioxide 36 mmol/L (21-32) H 09/23/19 05:15 Anion Gap 5 MMOL/L (8-16) L 09/23/19 05:15 BUN 11.2 mg/dL (7-18) 09/23/19 05:15 Creatinine 0.5 mg/dL (0.55-1.3) L 09/23/19 05:15 Random Glucose 93 mg/dL (74-106) 09/23/19 05:15 Calcium 8.7 mg/dL (8.5-10.1) 09/23/19 05:15 Total Bilirubin 0.3 mg/dL (0.2-1) 09/23/19 05:15 AST 20 U/L (15-37) 09/23/19 05:15 ALT 28 U/L (13-61) 09/23/19 05:15 Alkaline Phosphatase 307 U/L (45-117) H 09/23/19 05:15 Total Protein 6.6 g/dl (6.4-8.2) 09/23/19 05:15 Albumin 2.1 g/dl (3.4-5.0) L 09/23/19 05:15 ASSESSMENT/PLAN: 59 y/o female with hx of multiple (~30) back and spine surgeries, complex global myofascial pain syndrome, recurrent spinal stenosis, multiple sclerosis, mechanical thoracolumbar instability, POD #0 s/p 1) inspection fusion mass (c- spine), 2) T1-3 laminectomies, 3) C7-T4 in situ fusion, 4) Inspection fusion mass (thoracolumbar spine), 5) posterior instrumentation T8-S1, 6) posteroir arthrodesis T8-S1, 7) bone allograft, 8) bone autograft, 9) complex wound closure (60cm). 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 Complaints of pain and pain mgmt has been consulted. Extensive conversation regarding her MS history which dates back to > 10 years and reports previously on BetaSeron but felt no difference. States last MRI brain was 1 year ago, offered repeat which patient would like to defer and reports prior imaging stable and states she will not be able to stay flat and tolerate procedure. She does not want to start on MS meds and would like to focus on spinal mgmt at this time. As outpatient, would advise MRI brain with and without contrast to start with. Was being plaaned for ruff slide bilterally for feet but with temperature spikes. This morning respiration seem to be normalized andjust using nasal cannula as opposed to face mask that she was requiring yesterday. No longer tachycardic also slightly hypotensive which she reports is her baseline blood pressure. Unclear of whether procedure will be completed but patient does appear to have spin stabilized in terms her respiratory status. Patient reported RLE muscle spasms, requested Flexiril. Added to regiment, no mental status change. Reports spasms improved. Informed hospitalist that if any issues with the medication can be d/donna. Ortho following and managing regiment. Continue orthopedic follow-up, caution with pain medications, continue monitor respiratory optimization. Notes reviewed. THis AM, seen at bedside with ID specialist and patient with increasing white blood cell count, yesterday 11, today 12.. Discussed with nursing patient remains nothing by mouth for possible procedure though may be put on hold due to concern for leukocytosis. Patient seemed frustrated with hospital course and not having significant improvement. Will continue to monitor. Critical care time 35 mins.
--- NOTE | 2019-09-23 09:10 | PN ---
Physical Exam: SUBJECTIVE: Patient seen and examined. No acute events overnight. OBJECTIVE: Vital Signs Period Temp Pulse Resp BP Sys/Gallagher Pulse Ox Last 24 Hr 97.7 F-98.9 F 70-80 14-20 90-111/48-73 93 GENERAL: Appears lethargic and mildly agitated, but arousable and oriented x3. HEAD: Normal with no signs of trauma. EYES: PERRL, extraocular movements intact ENT: Ears normal, nares patent, dry mucous membranes. NECK: Trachea midline. LUNGS: Mild bibasilar crackles, improving. On HFOT. HEART: Regular rate and rhythm, no murmur ABDOMEN: Soft, nontender, nondistended, normoactive bowel sounds BACK: Pinpoint area of erythema on left upper back just lateral to bandage EXTREMITIES: Warm, well-perfused, no edema. Can actively move both feet L>R. NEUROLOGICAL: Normal speech. CN II-XII intact. Gait not observed. SKIN: Warm, dry, normal turgor. Laboratory Results - last 24 hr CBC, BMP 09/23/19 08:00 09/23/19 05:15 Active Medications Amitriptyline HCl (Elavil -) 100 mg PO HS [facility] Last Admin: 09/22/19 21:38 Dose: 100 mg Benzocaine/Menthol (Cepacol Lozenge -) 1 each MM PRN PRN PRN Reason: SORE THROAT Last Admin: 09/17/19 17:36 Dose: 1 each Cyclobenzaprine HCl (Flexeril -) 10 mg PO BID [facility] Last Admin: 09/22/19 21:11 Dose: 10 mg Dexamethasone Sodium Phosphate (Decadron Injection -) 4 mg IVPUSH ONCE PRN PRN Reason: NAUSEA AND/OR VOMITING Diphenhydramine HCl (Benadryl -) 50 mg PO BID [facility] Last Admin: 09/22/19 21:11 Dose: 50 mg Gabapentin (Neurontin -) 600 mg PO TID [facility] Last Admin: 09/23/19 06:26 Dose: 600 mg Hydromorphone HCl (Dilaudid -) 8 mg PO Q6H PRN PRN Reason: PAIN LEVEL 6-10 Last Admin: 09/23/19 02:57 Dose: 8 mg Piperacillin Sod/Tazobactam (Sod 3.375 gm/ Dextrose) 50 mls @ 100 mls/hr IVPB Q8H-IV [facility]; Protocol Last Admin: 09/23/19 01:00 Dose: 100 mls/hr Lorazepam (Ativan Injection -) 1 mg IVPUSH TID PRN PRN Reason: ANXIETY Last Admin: 09/22/19 21:09 Dose: 1 mg Melatonin (Melatonin) 10 mg PO HS PRN PRN Reason: INSOMNIA Last Admin: 09/22/19 21:09 Dose: 10 mg Miscellaneous (Duragesic Patch Waste) 1 each TD PRN PRN PRN Reason: PAIN Mupirocin (Bactroban 2% Ointment -) 1 applic TP BID [facility] Last Admin: 09/22/19 21:11 Dose: 1 applic Ondansetron HCl (Zofran Injection) 4 mg IVPUSH Q6H PRN PRN Reason: NAUSEA AND/OR VOMITING Last Admin: 09/20/19 23:18 Dose: 4 mg Ondansetron HCl (Zofran Injection) 4 mg IVPUSH Q4H PRN PRN Reason: NAUSEA AND/OR VOMITING Oxycodone HCl (Roxicodone -) 30 mg PO Q8H PRN PRN Reason: PAIN LEVEL 7 - 10 Polyethylene Glycol (Miralax (For Daily Use) -) 17 gm PO BID [facility] Last Admin: 09/22/19 21:11 Dose: Not Given Promethazine HCl (Phenergan Injection -) 12.5 mg IVPB Q6H PRN PRN Reason: NAUSEA AND/OR VOMITING Zolpidem Tartrate (Ambien -) 10 mg PO HS PRN PRN Reason: INSOMNIA Stop: 09/23/19 10:30 Last Admin: 09/22/19 21:35 Dose: 10 mg ASSESSMENT/PLAN: Ms. Tafoya is a 59y/o female with multiple (~30) back and spine surgeries, complex global myofascial pain syndrome, recurrent spinal stenosis, multiple sclerosis, and mechanical thoracolumbar instability who presents for spinal surgery. #ARDS likely 2/2 pneumonia CTA (09/18): Thickening of interstitial septi and diffuse groundglass opacities with pleural effusions suggesting ARDS CXR (09/23): increased aeration, BL opacities Zosyn 3.375gm Q8H per ID (Dr. Bennett) on Day 6 F/u blood, urine, and sputum cx, no growth. Cont Lasix to 40mg BID HFOT 40% O2 @ 30. Attempted to wean to 30/30, but unable to. Will attempt to slowly wean off today. Incentive spirometry #Complex spinal pain 2/2 mechanical instability and myofascial decompensation s/ p multi-level spinal intervention, POD 7. Planned achilles lengthening procedure with ortho (Shein). Surgery deferred as pt still on HFOT. Will cont to monitor. Defer pain control to anesthesiology: Scheduled IV tylenol Dilaudid 8mg PO Q6H PRN Gabapentin 300mg TID Restart ativan 2mg TID prn for muscle spasms Zofran PRN PT eval daily. No bending, lifting (>5 lbs), or twisting for 9-12 months, f/ u 7-10 days after rehab d/c #Normocytic anemia Hgb: 10, up from 7.6 FOBT: negative Hold off on units for now Cont to monitor closely #Hypomagnesemia M.0 today Cont to monitor daily #FEN Monitor Mg and Hb Cholesterol/Na controlled diet #Dispo: Surgery deferred until ARDS improves Monitor in ICU SNF Visit type - Emergency Visit Emergency Visit: No - New Patient This patient is new to me today: No - Critical Care Critical Care patient: Yes Total Critical Care Time (in minutes): 35 Critical Care Statement: The care of this patient involved high complexity decision making to prevent further life threatening deterioration of the patient 's condition and/or to evaluate & treat vital organ system(s) failure or risk of failure. ATTENDING PHYSICIAN STATEMENT I saw and evaluated the patient. I reviewed the resident's note and discussed the case with the resident. I agree with the resident's findings and plan as documented. SUBJECTIVE: OBJECTIVE: ASSESSMENT AND PLAN:
[2019-09-23] MEDS: diphenhydrAMINE HCL 25 MG CAPSULE (FP) PO SCH ×2 (09:58→21:01)
[2019-09-23] MEDS: CYCLOBENZAPRINE HCL 10 MG TABLET (FP) PO SCH ×2 (09:58→21:02)
[2019-09-23] MEDS: POLYETHYLENE GLYCOL 3350 119 GM BTL PO SCH ×2 (10:03→21:02)
--- NOTE | 2019-09-23 10:31 | PN ---
Progress Note, Physician History of Present Illness: AWAKE. MORE RESPONSIVE OFFERS NO COMPLAINTS AFEBRILE BUMP IN WBC NOTED, NOW WNL?? BREATHING NON-LABORED ON HIGH FLOW O2 CXR DIFFUSE BILATERAL INFILTRATES [facility] WAS ORDERED BUT APPARENTLY NOT SENT - Current Medication List Current Medications: Active Medications Amitriptyline HCl (Elavil -) 100 mg PO HS [facility] Last Admin: 09/22/19 21:38 Dose: 100 mg Benzocaine/Menthol (Cepacol Lozenge -) 1 each MM PRN PRN PRN Reason: SORE THROAT Last Admin: 09/17/19 17:36 Dose: 1 each Cyclobenzaprine HCl (Flexeril -) 10 mg PO BID [facility] Last Admin: 09/23/19 09:58 Dose: 10 mg Dexamethasone Sodium Phosphate (Decadron Injection -) 4 mg IVPUSH ONCE PRN PRN Reason: NAUSEA AND/OR VOMITING Diphenhydramine HCl (Benadryl -) 50 mg PO BID [facility] Last Admin: 09/23/19 09:58 Dose: 50 mg Gabapentin (Neurontin -) 600 mg PO TID [facility] Last Admin: 09/23/19 06:26 Dose: 600 mg Hydromorphone HCl (Dilaudid -) 8 mg PO Q6H PRN PRN Reason: PAIN LEVEL 6-10 Last Admin: 09/23/19 02:57 Dose: 8 mg Piperacillin Sod/Tazobactam (Sod 3.375 gm/ Dextrose) 50 mls @ 100 mls/hr IVPB Q8H-IV [facility]; Protocol Last Admin: 09/23/19 09:59 Dose: 100 mls/hr Lorazepam (Ativan Injection -) 1 mg IVPUSH TID PRN PRN Reason: ANXIETY Last Admin: 09/22/19 21:09 Dose: 1 mg Melatonin (Melatonin) 10 mg PO HS PRN PRN Reason: INSOMNIA Last Admin: 09/22/19 21:09 Dose: 10 mg Miscellaneous (Duragesic Patch Waste) 1 each TD PRN PRN PRN Reason: PAIN Mupirocin (Bactroban 2% Ointment -) 1 applic TP BID [facility] Last Admin: 09/22/19 21:11 Dose: 1 applic Ondansetron HCl (Zofran Injection) 4 mg IVPUSH Q6H PRN PRN Reason: NAUSEA AND/OR VOMITING Last Admin: 09/20/19 23:18 Dose: 4 mg Ondansetron HCl (Zofran Injection) 4 mg IVPUSH Q4H PRN PRN Reason: NAUSEA AND/OR VOMITING Oxycodone HCl (Roxicodone -) 30 mg PO Q8H PRN PRN Reason: PAIN LEVEL 7 - 10 Polyethylene Glycol (Miralax (For Daily Use) -) 17 gm PO BID [facility] Last Admin: 09/23/19 10:03 Dose: Not Given Promethazine HCl (Phenergan Injection -) 12.5 mg IVPB Q6H PRN PRN Reason: NAUSEA AND/OR VOMITING Zolpidem Tartrate (Ambien -) 10 mg PO HS PRN PRN Reason: INSOMNIA Stop: 09/23/19 10:30 Last Admin: 09/22/19 21:35 Dose: 10 mg - Objective Vital Signs: Vital Signs Temperature 98.2 F 09/23/19 06:00 Pulse Rate 80 09/23/19 09:08 Respiratory Rate 22 H 09/23/19 09:08 Blood Pressure 118/59 L 09/23/19 09:08 O2 Sat by Pulse Oximetry (%) 96 09/23/19 09:08 Constitutional: Yes: No Distress Cardiovascular: Yes: Regular Rate and Rhythm, S1, S2 Respiratory: Yes: Diminished Gastrointestinal: Yes: Normal Bowel Sounds, Soft. No: Tenderness Extremities: No: Calf Tenderness Edema: No Labs: CBC, BMP 09/23/19 08:00 09/23/19 05:15 INR, PTT INR 1.14 (0.83-1.09) H 09/23/19 05:15 Assessment/Plan R/O PNEUMONIA/ ARDS UTI S/P LAMINECTOMY CONTINUE ZOSYN
[2019-09-23] MEDS: MUPIROCIN 2% TOPICAL OINTMENT 22 GM TUBE TP SCH ×2 (10:36→21:01)
--- NOTE | 2019-09-23 11:22 | PN ---
Teaching Attending Note Name of Resident: Meir Harmon ATTENDING PHYSICIAN STATEMENT I saw and evaluated the patient. I reviewed the resident's note and discussed the case with the resident. I agree with the resident's findings and plan as documented. SUBJECTIVE: Pt seen and examined in the ICU. Remains on HFOT 40% FiO2. Continues to diurese well. OBJECTIVE: Vital Signs Period Temp Pulse Resp BP Sys/Gallagher Pulse Ox Last 24 Hr 97.7 F-98.9 F 70-80 14-22 90-118/48-73 93-96 Intake & Output 09/20/19 09/21/19 09/22/19 09/23/19 23:59 23:59 23:59 23:59 Intake Total 1450 600 730 Output Total 3400 4000 2400 1000 Balance -1950 -3400 -1670 -1000 Weight 97.341 kg 100.698 kg 100.698 kg 100.698 kg Gen: NAD on HFOT Heart: RRR Lung: decreased breath sounds at the bases Abd: soft, nontender Ext: no edema CBC, BMP 09/23/19 08:00 09/23/19 05:15 Active Medications Amitriptyline HCl (Elavil -) 100 mg PO HS [facility] Last Admin: 09/22/19 21:38 Dose: 100 mg Benzocaine/Menthol (Cepacol Lozenge -) 1 each MM PRN PRN PRN Reason: SORE THROAT Last Admin: 09/17/19 17:36 Dose: 1 each Cyclobenzaprine HCl (Flexeril -) 10 mg PO BID [facility] Last Admin: 09/23/19 09:58 Dose: 10 mg Dexamethasone Sodium Phosphate (Decadron Injection -) 4 mg IVPUSH ONCE PRN PRN Reason: NAUSEA AND/OR VOMITING Diphenhydramine HCl (Benadryl -) 50 mg PO BID [facility] Last Admin: 09/23/19 09:58 Dose: 50 mg Furosemide (Lasix Injection -) 40 mg IVPUSH BID [facility] Gabapentin (Neurontin -) 600 mg PO TID [facility] Last Admin: 09/23/19 06:26 Dose: 600 mg Hydromorphone HCl (Dilaudid -) 8 mg PO Q6H PRN PRN Reason: PAIN LEVEL 6-10 Last Admin: 09/23/19 02:57 Dose: 8 mg Piperacillin Sod/Tazobactam (Sod 3.375 gm/ Dextrose) 50 mls @ 100 mls/hr IVPB Q8H-IV [facility]; Protocol Last Admin: 09/23/19 09:59 Dose: 100 mls/hr Lorazepam (Ativan Injection -) 2 mg IVPUSH TID PRN PRN Reason: ANXIETY Melatonin (Melatonin) 10 mg PO HS PRN PRN Reason: INSOMNIA Last Admin: 09/22/19 21:09 Dose: 10 mg Miscellaneous (Duragesic Patch Waste) 1 each TD PRN PRN PRN Reason: PAIN Mupirocin (Bactroban 2% Ointment -) 1 applic TP BID [facility] Last Admin: 09/22/19 21:11 Dose: 1 applic Ondansetron HCl (Zofran Injection) 4 mg IVPUSH Q6H PRN PRN Reason: NAUSEA AND/OR VOMITING Last Admin: 09/20/19 23:18 Dose: 4 mg Ondansetron HCl (Zofran Injection) 4 mg IVPUSH Q4H PRN PRN Reason: NAUSEA AND/OR VOMITING Oxycodone HCl (Roxicodone -) 30 mg PO Q8H PRN PRN Reason: PAIN LEVEL 7 - 10 Polyethylene Glycol (Miralax (For Daily Use) -) 17 gm PO BID [facility] Last Admin: 09/23/19 10:03 Dose: Not Given Promethazine HCl (Phenergan Injection -) 12.5 mg IVPB Q6H PRN PRN Reason: NAUSEA AND/OR VOMITING ASSESSMENT AND PLAN: Progressive Kyphoscoliosis s/p T1-T3 Laminectomies/C7-T4 Fusion/T8-S1 Posterior Instrumentation/Arthrodesis Anemia Acute Hypoxic Respiratory Failure Volume Overload Pleural Effusions r/o Pneumonia - continue antibiotics - taper HFOT to keep SpO2 >90% - continue lasix - monitor urine output, creatinine - keep net negative - pain control - incentive spirometry - PO as tolerated - antiemetics - activity/diet/DVT prophylaxis per surgery - continue ICU monitoring
[2019-09-23] MEDS: FUROSEMIDE 40 MG/4 ML INJECTABLE VIAL IVPUSH SCH ×2 (12:17→21:02)
[2019-09-23] MEDS: LORazepam 2 MG/ML SDV VIAL IVPUSH PRN (14:07)
--- NOTE | 2019-09-23 14:51 | PN ---
Teaching Attending Note Name of Resident: Chanda Graham ATTENDING PHYSICIAN STATEMENT I saw and evaluated the patient. I reviewed the resident's note and discussed the case with the resident. I agree with the resident's findings and plan as documented. SUBJECTIVE: Awake, alert, responsive, answers questions appropriately. Lethargy and agitation resolved. Tearful. complains of inability to move LEs and persistent pain. Expressed frustration at hospital course and her continued pain and disability, unable to move in bed or participate in PT. OBJECTIVE: Fever resolved. Hemodynamically Stable. AAO x 3. SpO2 96% on High Flow O2 via NC, FiO2 40% Last Vital Signs Temp Pulse Resp BP Pulse Ox 98.2 F 88 14 109/61 96 09/23/19 06:00 09/23/19 13:00 09/23/19 13:00 09/23/19 13:00 09/23/19 09:08 Heart - S1, S2, RRR Lungs - bilateral lower zone crackles improved Abdomen - Soft, non-tender. Bowel Sounds normal. Extremities - no edema, no calf tenderness. Laboratory Results - last 24 hr 09/22/19 09/22/19 09/23/19 20:30 20:30 05:15 WBC RBC Hgb Hct MCV MCH MCHC RDW Plt Count MPV Absolute Neuts (auto) Neutrophils % Lymphocytes % Monocytes % Eosinophils % Basophils % Nucleated RBC % PT with INR 13.80 H 13.50 H INR 1.17 H 1.14 H PTT (Actin FS) 31.9 33.0 Sodium Potassium Chloride Carbon Dioxide Anion Gap BUN Creatinine Est GFR (CKD-EPI)AfAm Est GFR (CKD-EPI)NonAf Random Glucose Calcium Total Bilirubin AST ALT Alkaline Phosphatase Total Protein Albumin Blood Type A POSITIVE Antibody Screen Negative 09/23/19 09/23/19 09/23/19 05:15 05:20 08:00 WBC 9.8 RBC 3.26 L Hgb 9.7 L Hct 29.3 L MCV 89.7 MCH 29.8 MCHC 33.2 RDW 14.3 Plt Count 727 H MPV 7.5 Absolute Neuts (auto) 6.5 Neutrophils % 66.9 Lymphocytes % 21.8 D Monocytes % 4.1 Eosinophils % 6.6 H Basophils % 0.6 Nucleated RBC % 0 PT with INR INR PTT (Actin FS) Sodium 138 Potassium 4.4 Chloride 98 Carbon Dioxide 36 H Anion Gap 5 L BUN 11.2 Creatinine 0.5 L Est GFR (CKD-EPI)AfAm 124.52 Est GFR (CKD-EPI)NonAf 107.44 Random Glucose 93 Calcium 8.7 Total Bilirubin 0.3 AST 20 ALT 28 Alkaline Phosphatase 307 H Total Protein 6.6 Albumin 2.1 L Blood Type Antibody Screen Current Medications Generic Name Dose Route Start Last Admin Trade Name Freq PRN Reason Stop Dose Admin Amitriptyline HCl 100 mg 09/10/19 16:26 09/22/19 21:38 Elavil - PO 100 mg HS ARNIE Administration Benzocaine/Menthol 1 each 09/17/19 12:19 09/17/19 17:36 Cepacol Lozenge - MM 1 each PRN PRN Administration SORE THROAT Cyclobenzaprine HCl 10 mg 09/21/19 12:45 09/23/19 09:58 Flexeril - PO 10 mg BID ARNIE Administration Dexamethasone Sodium Phosphate 4 mg 09/11/19 18:40 Decadron Injection - IVPUSH ONCE PRN NAUSEA AND/OR VOMITING Diphenhydramine HCl 50 mg 09/15/19 10:00 09/23/19 09:58 Benadryl - PO 50 mg BID ARNIE Administration Furosemide 40 mg 09/23/19 11:15 09/23/19 12:17 Lasix Injection - IVPUSH 40 mg BID ARNIE Administration Gabapentin 600 mg 09/13/19 14:00 09/23/19 14:12 Neurontin - PO 600 mg TID ARNIE Administration Hydromorphone HCl 8 mg 09/22/19 07:58 09/23/19 14:09 Dilaudid - PO 8 mg Q6H PRN Administration PAIN LEVEL 6-10 Piperacillin Sod/Tazobactam 50 mls @ 100 mls/hr 09/18/19 18:00 09/23/19 09:59 Sod 3.375 gm/ Dextrose IVPB 100 mls/hr Q8H-IV ARNIE Administration Protocol Lorazepam 2 mg 09/23/19 11:04 09/23/19 14:07 Ativan Injection - IVPUSH 2 mg TID PRN Administration ANXIETY Melatonin 10 mg 09/19/19 19:22 09/22/19 21:09 Melatonin PO 10 mg HS PRN Administration INSOMNIA Miscellaneous 1 each 09/21/19 22:19 Duragesic Patch Waste TD PRN PRN PAIN Mupirocin 1 applic 09/15/19 10:45 09/22/19 21:11 Bactroban 2% Ointment - TP 1 applic BID ARNIE Administration Ondansetron HCl 4 mg 09/09/19 16:47 09/20/19 23:18 Zofran Injection IVPUSH 4 mg Q6H PRN Administration NAUSEA AND/OR VOMITING Ondansetron HCl 4 mg 09/11/19 18:40 Zofran Injection IVPUSH Q4H PRN NAUSEA AND/OR VOMITING Oxycodone HCl 30 mg 09/22/19 10:32 Roxicodone - PO Q8H PRN PAIN LEVEL 7 - 10 Polyethylene Glycol 17 gm 09/17/19 22:00 09/23/19 10:03 Miralax (For Daily Use) - PO Not Given BID ARNIE Promethazine HCl 12.5 mg 09/11/19 18:43 Phenergan Injection - IVPB Q6H PRN NAUSEA AND/OR VOMITING Home Medications Medication Instructions Recorded Amitriptyline HCl [Elavil -] 50 mg PO HS 01/16/19 Oxycodone HCl 60 mg PO Q8H 01/16/19 HYDROmorphone [Dilaudid -] 8 mg PO Q6H PRN 03/04/19 Cyclobenzaprine HCl 1 tab PO TID 03/05/19 LORazepam [Ativan] 2 mg PO TID tablet MDD 6mg 03/11/19 Amitriptyline HCl 100 mg PO TID 09/06/19 Alprazolam [Xanax] 0.5 mg PO BID 09/12/19 Fluoxetine HCl 10 mg PO BID 09/12/19 Prednisone 5 mg PO QID 09/12/19 ASSESSMENT AND PLAN: 59 year old female with history of MS, recurrent lumbar spinal stenosis, s/p multiple back surgeries, complex global myofascial pain syndrome, mechanical thoracolumbar instability, admitted for spine surgery. POD 14 s/p 1. Inspection fusion mass (cervical spine). 2. T1, T2, T3 laminectomies. 3. C7 -T4 in situ fusion. 4. Inspection fusion mass (thoracolumbar spine). 5. Posterior instrumentation T8-S1. 6. Posterior arthrodesis T8-S1. 7. Bone allograft. 8. Bone autograft. 9. Complex wound closure 1. Paraparesis of lower extremities, complex spine pain secondary to mechanical axial instability and myofascial decompensation, progressive kyphoscoliosis secondary to thoracolumbar pseudarthrosis and progressive neurogenic bilateral equinus deformities with bilateral Achilles contractures s/p inspection fusion mass (cervical spine); T1, T2, T3 laminectomies; C7-T4 in situ fusion; inspection fusion mass (thoracolumbar spine); posterior instrumentation T8-S1; posterior arthrodesis T8-S1; bone allograft; bone autograft; complex wound closure (60cm) 09/09 Anesthesia asked to stop Dilaudid [employer] due to drowsiness and lethargy. Dilaudid PRN for pain management. Contiue Dilaudid prn, Elavil, Neurontin, Ativan PRN Deferral of Aguilar's procedure planned for achilles tendon release due to fever, mental status change and hypoxic resp failure - now apparently scheduled for today. Further management as per Ortho. 2. Acute Hypoxic respiratory failure and Sepsis secondary to Pneumonia +/- ARDS Continue high flow via NC. Clinically improving. Fever resolved. Attempt to wean down HFO2. CTA Chest neg for PE but shows bilateral interstitial infiltrates + fluid ? Pneumonia +/- ARDS Responding to IV lasix. Repeat CXR shows improved aeration. Blood Cx neg. Urine Cx contaminated. Continue IV Zosyn for HCAP. Further Abx therapy as per ID Monitor respiratory status. 3. Acute Metabolic Encephalopathy secondary to Hypoxia + Sepsis - resolved. AAO x 3, agitation/confusion resolved. Now depressed, tearful and frustrated with due to Surgery. Resumed on Ativan, which patient takes chronically for anxiety. 4. Anemia - normocytic s/p spinal surgery. No evidence of ongoing blood loss Will monitor H/H and transfuse if necessary. 5. Hypokalemia - repleted. DVT Px - SCDs
--- NOTE | 2019-09-23 14:54 | PN ---
Physical Exam: SUBJECTIVE: Patient seen and examined at bedside. Patient is tearful that she is still in the hospital. Complains that her right leg is getting more contracted and still complaining of back pain. POD#13. OBJECTIVE: Vital Signs Period Temp Pulse Resp BP Sys/Gallagher Pulse Ox Last 24 Hr 98.0 F-98.9 F 70-88 14-22 90-118/50-64 93-96 GENERAL: The patient is awake, alert, and fully oriented, in mild distress due to pain. HEAD: Normal with no signs of trauma. EYES: PERRL NECK: Trachea midline, full range of motion, supple. LUNGS: Breath sounds equal, clear to auscultation bilaterally HEART: RRR, S1, S2 normal, no murmurs ABDOMEN: Soft, nontender, nondistended, normoactive bowel sounds, no guarding, no rebound EXTREMITIES: Right leg contracted. 2+ pulses, warm, well-perfused, no edema. NEUROLOGICAL: Decreased sensation of right leg and right arm. Normal speech. SKIN: Warm, dry, normal turgor, no rashes or lesions noted Laboratory Results - last 24 hr 09/22/19 09/22/19 09/23/19 20:30 20:30 05:15 WBC RBC Hgb Hct MCV MCH MCHC RDW Plt Count MPV Absolute Neuts (auto) Neutrophils % Lymphocytes % Monocytes % Eosinophils % Basophils % Nucleated RBC % PT with INR 13.80 H 13.50 H INR 1.17 H 1.14 H PTT (Actin FS) 31.9 33.0 Sodium Potassium Chloride Carbon Dioxide Anion Gap BUN Creatinine Est GFR (CKD-EPI)AfAm Est GFR (CKD-EPI)NonAf Random Glucose Calcium Total Bilirubin AST ALT Alkaline Phosphatase Total Protein Albumin Blood Type A POSITIVE Antibody Screen Negative 09/23/19 09/23/19 09/23/19 05:15 05:20 08:00 WBC 9.8 RBC 3.26 L Hgb 9.7 L Hct 29.3 L MCV 89.7 MCH 29.8 MCHC 33.2 RDW 14.3 Plt Count 727 H MPV 7.5 Absolute Neuts (auto) 6.5 Neutrophils % 66.9 Lymphocytes % 21.8 D Monocytes % 4.1 Eosinophils % 6.6 H Basophils % 0.6 Nucleated RBC % 0 PT with INR INR PTT (Actin FS) Sodium 138 Potassium 4.4 Chloride 98 Carbon Dioxide 36 H Anion Gap 5 L BUN 11.2 Creatinine 0.5 L Est GFR (CKD-EPI)AfAm 124.52 Est GFR (CKD-EPI)NonAf 107.44 Random Glucose 93 Calcium 8.7 Total Bilirubin 0.3 AST 20 ALT 28 Alkaline Phosphatase 307 H Total Protein 6.6 Albumin 2.1 L Blood Type Antibody Screen Active Medications Generic Name Dose Route Start Last Admin Trade Name Freq PRN Reason Stop Dose Admin Amitriptyline HCl 100 mg 09/10/19 16:26 09/22/19 21:38 Elavil - PO 100 mg HS ARNIE Administration Benzocaine/Menthol 1 each 09/17/19 12:19 09/17/19 17:36 Cepacol Lozenge - MM 1 each PRN PRN Administration SORE THROAT Cyclobenzaprine HCl 10 mg 09/21/19 12:45 09/23/19 09:58 Flexeril - PO 10 mg BID ARNIE Administration Dexamethasone Sodium Phosphate 4 mg 09/11/19 18:40 Decadron Injection - IVPUSH ONCE PRN NAUSEA AND/OR VOMITING Diphenhydramine HCl 50 mg 09/15/19 10:00 09/23/19 09:58 Benadryl - PO 50 mg BID ARNIE Administration Furosemide 40 mg 09/23/19 11:15 09/23/19 12:17 Lasix Injection - IVPUSH 40 mg BID ARNIE Administration Gabapentin 600 mg 09/13/19 14:00 09/23/19 14:12 Neurontin - PO 600 mg TID ARNIE Administration Hydromorphone HCl 8 mg 09/22/19 07:58 09/23/19 14:09 Dilaudid - PO 8 mg Q6H PRN Administration PAIN LEVEL 6-10 Piperacillin Sod/Tazobactam 50 mls @ 100 mls/hr 09/18/19 18:00 09/23/19 09:59 Sod 3.375 gm/ Dextrose IVPB 100 mls/hr Q8H-IV ARNIE Administration Protocol Lorazepam 2 mg 09/23/19 11:04 09/23/19 14:07 Ativan Injection - IVPUSH 2 mg TID PRN Administration ANXIETY Melatonin 10 mg 09/19/19 19:22 09/22/19 21:09 Melatonin PO 10 mg HS PRN Administration INSOMNIA Miscellaneous 1 each 09/21/19 22:19 Duragesic Patch Waste TD PRN PRN PAIN Mupirocin 1 applic 09/15/19 10:45 09/22/19 21:11 Bactroban 2% Ointment - TP 1 applic BID ARNIE Administration Ondansetron HCl 4 mg 09/09/19 16:47 09/20/19 23:18 Zofran Injection IVPUSH 4 mg Q6H PRN Administration NAUSEA AND/OR VOMITING Ondansetron HCl 4 mg 09/11/19 18:40 Zofran Injection IVPUSH Q4H PRN NAUSEA AND/OR VOMITING Oxycodone HCl 30 mg 09/22/19 10:32 Roxicodone - PO Q8H PRN PAIN LEVEL 7 - 10 Polyethylene Glycol 17 gm 09/17/19 22:00 09/23/19 10:03 Miralax (For Daily Use) - PO Not Given BID ARNIE Promethazine HCl 12.5 mg 09/11/19 18:43 Phenergan Injection - IVPB Q6H PRN NAUSEA AND/OR VOMITING ASSESSMENT/PLAN: This is a 59 YO F with PMH significant for MS, recurrent spinal stenosis and multiple spinal surgeries, complex global myofascial pain syndrome, and mechanical thoracolumbar instability. She was admitted for spinal surgery including inspection fusion mass (c-spine), T1-3 laminectomies, C7-T4 in situ fusion, inspection fusion mass (thoracolumbar spine), posterior instrumentation T8-S1, posterior arthrodesis T8-S1, bone allograft, bone autograft, and complex wound closure. POD#13. Pending Bakers Slide procedure #Respiratory - LIPS score (Lung Injury Prediction Score) is 4.5, over 4 predicts ARDS with specificity of 78% (ortho surgery 1.5, obesity 1, hypoalbuminemia 1, FiO2 > 0.35 1) - CXR: Similar compared to prior study. Continue to monitor. - Lasix 40mg IVPUSH BID - Hi flow O2 40% O2 @ 30L/h. Will continue to attempt to wean off Hi-flow - Incentive spirometery #Neuro - Lorazepam 2mg IV TID PRN - Ambien 10mh PO HS PRN for insomnia - Dilaudid 8mg Q6H PO PRN and Oxycodone 30mg Q8H PO PRN for pain - Benadryl 50mg PO BID - Amytriptyline 100mg PO HS - Nasuea: Promethazine 12.5mg IV Q6H PRN and Zofran 4mg IV Q4H PRN #Ortho - Aguilar's slide procedure after patient is weaned off of high flow O2 - Gabapentin 600mg PO TID - PT eval daily: No bending, lifting (>5 lbs), or twisting for 9-12 months, f/u 7-10 days after rehab d/c #ID - Has been afebrile - WBC 9.8 - Blood cx no growth, urine cx contaminated - Zosyn 3.375mg Q8H day 8 - ID on board #GI - Alk Phos 375 -> 359 -> 346 -> 307 - FOBT neg 09/20 - Miralax 17mg BID #Renal - BUN/Cr 11.2/0.5 - I/O monitoring #Heme - Hg/Hct 9.7/29.3 #FEN - Cholesterol/Na controlled diet #DVT PE - SCDs - Duplex B/L showed no evidence of DVT #Dispo: - Continue ICU monitoring - Bakers slide procedure postponed until patient is off high flow O2 Visit type - Emergency Visit Emergency Visit: No - New Patient This patient is new to me today: No - Critical Care Critical Care patient: Yes Total Critical Care Time (in minutes): 36 Critical Care Statement: The care of this patient involved high complexity decision making to prevent further life threatening deterioration of the patient 's condition and/or to evaluate & treat vital organ system(s) failure or risk of failure. ATTENDING PHYSICIAN STATEMENT I saw and evaluated the patient. I reviewed the resident's note and discussed the case with the resident. I agree with the resident's findings and plan as documented. SUBJECTIVE: OBJECTIVE: ASSESSMENT AND PLAN:
[2019-09-23] MEDS: oxyCODONE HCL 5 MG TABLET PO PRN (18:15)
[2019-09-23] MEDS: AMITRIPTYLINE HCL 25 MG TABLET (FP) PO SCH (21:01)
[2019-09-23] MEDS: ZOLPIDEM TARTRATE 5 MG TABLET PO PRN (21:02)
--- NOTE | 2019-09-23 22:49 | PN ---
Progress Note (short form) - Note Progress Note: 59F s/p posterior thoracic decompression, cervicothoracic in situ fusion, and revision thoracolumbar instrumented fusion POD #14. Pain well controlled. (+) B/L Achilles contractures. Pt. denies overnight history of headaches, chest pain, shortness of breath, nausea, vomiting, chills, & sweats. (+) Voiding; (+) Flatus; (+) BM. All labs and vitals reviewed. PE: AAO x 3, NAD. T/L-Spine: Incision, dressing C/D/I. B/L LE NV status at baseline; paraparesis. 59F s/p posterior thoracic decompression, cervicothoracic in situ fusion, and revision thoracolumbar instrumented fusion POD #14. -Planned bilateral tendo-achilles lengthening delayed d/t pyrexia and leukocytosis. -Pain control: NO NSAID's. -Nursing care: fastidious avoidance of decubitus ulcers; log roll/place on wedge pillows every 2 hours; rolled up towels under the ankles to offload the heels. -DVT PPx: -Mechanical only: MIGUEL ANGEL's, SCD's. -Chemical: None. -Incentive spirometry q15 min. -Diet as tolerated. -PT/OT/Rehab, OOB. -WBAT B/L LE. -No bending, lifting (>5 lbs), or twisting for 9-12 months. -Care per ICU & medical hospitalist team. -Discharge planning: Rehab; f/u 7-10 days after discharge from [facility] office; call for appointment; . -Will follow. Shayan Marina MD (Orthopaedic Surgery).
--- NOTE | 2019-09-23 22:51 | PN ---
Progress Note (short form) - Note Progress Note: 59F s/p posterior thoracic decompression, cervicothoracic in situ fusion, and revision thoracolumbar instrumented fusion POD #13. Pain well controlled. (+) B/L Achilles contractures. Pt. denies overnight history of headaches, chest pain, shortness of breath, nausea, vomiting, chills, & sweats. (+) Voiding; (+) Flatus; (+) BM. All labs and vitals reviewed. PE: AAO x 3, NAD. T/L-Spine: Incision, dressing C/D/I. B/L LE NV status at baseline; paraparesis. 59F s/p posterior thoracic decompression, cervicothoracic in situ fusion, and revision thoracolumbar instrumented fusion POD #13. -NPO, IVF at midnight. -Pre-op for tomorrow for bilateral Achilles tendon lengthening. -Pain control: NO NSAID's. -Nursing care: fastidious avoidance of decubitus ulcers; log roll/place on wedge pillows every 2 hours; rolled up towels under the ankles to offload the heels. -DVT PPx: -Mechanical only: MIGUEL ANGEL's, SCD's. -Chemical: None. -Incentive spirometry q15 min. -PT/OT/Rehab, OOB. -WBAT B/L LE. -No bending, lifting (>5 lbs), or twisting for 9-12 months. -Care per ICU & medical hospitalist team. -Discharge planning: Rehab; f/u 7-10 days after discharge from [facility] office; call for appointment; . -Will follow. Shayan Marina MD (Orthopaedic Surgery).
[2019-09-24] MEDS ORDERED: PIPERACILLIN/TAZOBACTAM 3.375 GM VIAL IVPB ONE ×3 (01:27→17:10)
[2019-09-24] MEDS ORDERED: DEXTROSE 5%-WATER - 50 ML IVPB ONE ×3 (01:27→17:10)
[2019-09-24] MEDS: PIPERACILLIN/TAZOB 3.375 GM 3.375 GM in DEXTROSE 5%-WATER - 50 ML IVPB SCH ×3 (02:12→17:20)
[2019-09-24] MEDS: GABAPENTIN 300 MG CAPSULE (FP) PO SCH ×3 (06:32→21:14)
[2019-09-24 07:20] LABS: BASO % 0.8 % (0-2.0); HEMATOCRIT 30.3 % (32.4-45.2); HEMOGLOBIN 10.1 GM/dL (10.7-15.3); LYMPH % 25.8 % (8-40); MCHC 33.4 g/dl (32.0-36.0); MEAN CELL VOLUME 89.7 fl (80-96); MEAN PLT VOLUME 7.5 fl (7.5-11.1); MONO % 5.1 % (3.8-10.2); NEUT % 61.3 % (42.8-82.8); PLATELET COUNT 792 K/MM3 (134-434); RBC 3.38 M/mm3 (3.60-5.2); RDW 14.6 % (11.6-15.6)
[2019-09-24 07:38] LABS: ALBUMIN 2.3 g/dl (3.4-5.0); BILIRUBIN,TOTAL 0.4 mg/dL (0.2-1); BLOOD UREA NITROGEN 15.3 mg/dL (7-18); CALCIUM 8.9 mg/dL (8.5-10.1); CREATININE 0.6 mg/dL (0.55-1.3); MAGNESIUM 2.3 mg/dL (1.8-2.4); PHOSPHOROUS 3.6 mg/dL (2.5-4.9); POTASSIUM 4.3 mmol/L (3.5-5.1)
--- NOTE | 2019-09-24 08:12 | PN ---
Physical Exam: SUBJECTIVE: Patient seen and examined by the bedside. Complains of mild lower back pain, no SOB, chest pain, insomnia, or anxiety. OBJECTIVE: Vital Signs Period Temp Pulse Resp BP Sys/Gallagher Pulse Ox Last 24 Hr 98.3 F-99.3 F 74-90 12-24 91-118/45-65 96-96 GENERAL: The patient is AOx3, and fully oriented, pain well controlled HEAD: Normal with no signs of trauma. EYES: PERRL, extraocular movements intact, sclera anicteric, conjunctiva clear. No ptosis. LUNGS: Breath sounds equal, clear to auscultation bilaterally, no wheezes, no crackles, no accessory muscle use. HEART: Regular rate and rhythm, S1, S2 without murmur, rub or gallop. ABDOMEN: Soft, nontender, nondistended, normoactive bowel sounds, no guarding, no rebound, no hepatosplenomegaly, no masses. EXTREMITIES: 2+ pulses, warm, well-perfused, no edema. NEUROLOGICAL: Motor strength upper limb 3/5, lower limb 1/5, sensations intact in all extremities Laboratory Results - last 24 hr 09/23/19 09/23/19 09/24/19 05:20 08:00 06:11 WBC 9.8 RBC 3.26 L Hgb 9.7 L Hct 29.3 L MCV 89.7 MCH 29.8 MCHC 33.2 RDW 14.3 Plt Count 727 H MPV 7.5 Absolute Neuts (auto) 6.5 Neutrophils % 66.9 Lymphocytes % 21.8 D Monocytes % 4.1 Eosinophils % 6.6 H Basophils % 0.6 Nucleated RBC % 0 Sodium 137 Potassium 4.3 Chloride 98 Carbon Dioxide 35 H Anion Gap 3 L BUN 15.3 Creatinine 0.6 Est GFR (CKD-EPI)AfAm 117.27 Est GFR (CKD-EPI)NonAf 101.18 Random Glucose 97 Calcium 8.9 Phosphorus 3.6 Magnesium 2.3 Total Bilirubin 0.4 AST 26 ALT 29 Alkaline Phosphatase 273 H Total Protein 7.0 Albumin 2.3 L 09/24/19 06:45 WBC 10.0 RBC 3.38 L Hgb 10.1 L Hct 30.3 L MCV 89.7 MCH 30.0 MCHC 33.4 RDW 14.6 Plt Count 792 H MPV 7.5 Absolute Neuts (auto) 6.1 Neutrophils % 61.3 Lymphocytes % 25.8 Monocytes % 5.1 Eosinophils % 7.0 H Basophils % 0.8 Nucleated RBC % 0 Sodium Potassium Chloride Carbon Dioxide Anion Gap BUN Creatinine Est GFR (CKD-EPI)AfAm Est GFR (CKD-EPI)NonAf Random Glucose Calcium Phosphorus Magnesium Total Bilirubin AST ALT Alkaline Phosphatase Total Protein Albumin Active Medications Generic Name Dose Route Start Last Admin Trade Name Freq PRN Reason Stop Dose Admin Amitriptyline HCl 100 mg 09/10/19 16:26 09/23/19 21:01 Elavil - PO 100 mg HS ARNIE Administration Benzocaine/Menthol 1 each 09/17/19 12:19 09/17/19 17:36 Cepacol Lozenge - MM 1 each PRN PRN Administration SORE THROAT Cyclobenzaprine HCl 10 mg 09/21/19 12:45 09/23/19 21:02 Flexeril - PO 10 mg BID ARNIE Administration Dexamethasone Sodium Phosphate 4 mg 09/11/19 18:40 Decadron Injection - IVPUSH ONCE PRN NAUSEA AND/OR VOMITING Diphenhydramine HCl 50 mg 09/15/19 10:00 09/23/19 21:01 Benadryl - PO 50 mg BID ARNIE Administration Furosemide 40 mg 09/23/19 11:15 09/23/19 21:02 Lasix Injection - IVPUSH 40 mg BID ARNIE Administration Gabapentin 600 mg 09/13/19 14:00 09/24/19 06:32 Neurontin - PO 600 mg TID ARNIE Administration Hydromorphone HCl 8 mg 09/22/19 07:58 09/24/19 02:13 Dilaudid - PO 8 mg Q6H PRN Administration PAIN LEVEL 6-10 Piperacillin Sod/Tazobactam 50 mls @ 100 mls/hr 09/18/19 18:00 09/24/19 02:12 Sod 3.375 gm/ Dextrose IVPB 100 mls/hr Q8H-IV ARNIE Administration Protocol Lorazepam 2 mg 09/23/19 11:04 09/23/19 14:07 Ativan Injection - IVPUSH 2 mg TID PRN Administration ANXIETY Melatonin 10 mg 09/19/19 19:22 09/22/19 21:09 Melatonin PO 10 mg HS PRN Administration INSOMNIA Miscellaneous 1 each 09/21/19 22:19 Duragesic Patch Waste TD PRN PRN PAIN Mupirocin 1 applic 09/15/19 10:45 09/23/19 21:01 Bactroban 2% Ointment - TP 1 applic BID ARNIE Administration Ondansetron HCl 4 mg 09/09/19 16:47 09/20/19 23:18 Zofran Injection IVPUSH 4 mg Q6H PRN Administration NAUSEA AND/OR VOMITING Ondansetron HCl 4 mg 09/11/19 18:40 Zofran Injection IVPUSH Q4H PRN NAUSEA AND/OR VOMITING Oxycodone HCl 30 mg 09/22/19 10:32 09/23/19 18:15 Roxicodone - PO 30 mg Q8H PRN Administration PAIN LEVEL 7 - 10 Polyethylene Glycol 17 gm 09/17/19 22:00 09/23/19 21:02 Miralax (For Daily Use) - PO Not Given BID ARNIE Promethazine HCl 12.5 mg 09/11/19 18:43 Phenergan Injection - IVPB Q6H PRN NAUSEA AND/OR VOMITING Zolpidem Tartrate 5 mg 09/23/19 19:29 09/23/19 21:02 Ambien - PO 5 mg HS PRN Administration INSOMNIA ASSESSMENT/PLAN: This is a 59 YO F with PMH significant for MS, recurrent spinal stenosis, multiple spinal surgeries. POD #14 for inspection of fusion mass (c-spine), T1- 3 laminectomies, C7-T4 in situ fusion, inspection fusion mass (thoracolumbar spine), posterior instrumentation T8-S1, posterior arthrodesis T8-S1, bone allograft, bone autograft, and complex wound closure. POD#14. Pending Bakers Slide procedure #Respiratory - CXR: Improved aeration of right lung compared to yesterday - Lasix 40mg IVPUSH BID - O2 NC - Incentive spirometery #Neuro - Lorazepam 2mg IV QID PRN - Ambien 5mg PO HS PRN for insomnia - Dilaudid 8mg Q6H PO PRN and Oxycodone 30mg Q8H PO PRN for pain - Benadryl 50mg PO BID - Amytriptyline 100mg PO HS - Nasuea: Promethazine 12.5mg IV Q6H PRN and Zofran 4mg IV Q4H PRN #Ortho - Aguilar's slide procedure after patient is weaned off of high flow O2, awaiting call back from Dr. Marina - Gabapentin 600mg PO TID #ID - Has been afebrile - Blood cx no growth, urine cx contaminated - Zosyn 3.375mg Q8H day 9 - ID on board #GI - Alk Phos 375 -> 359 -> 346 -> 307 -> 273 - FOBT neg 09/20 - Miralax 17mg BID #FEN - Cholesterol/Na controlled diet #DVT PE - SCDs #Dispo: - Continue ICU monitoring - Bakers slide procedure postponed until patient is off high flow O2 Visit type - Emergency Visit Emergency Visit: No - New Patient This patient is new to me today: No - Critical Care Critical Care patient: Yes Total Critical Care Time (in minutes): 38 Critical Care Statement: The care of this patient involved high complexity decision making to prevent further life threatening deterioration of the patient 's condition and/or to evaluate & treat vital organ system(s) failure or risk of failure. ATTENDING PHYSICIAN STATEMENT I saw and evaluated the patient. I reviewed the resident's note and discussed the case with the resident. I agree with the resident's findings and plan as documented. SUBJECTIVE: OBJECTIVE: ASSESSMENT AND PLAN:
[2019-09-24] MEDS: LORazepam 2 MG/ML SDV VIAL IVPUSH PRN ×3 (08:14→23:05)
--- NOTE | 2019-09-24 08:53 | PN ---
Progress Note (short form) - Note Progress Note: Neurology HISTORY OF PRESENT ILLNESS: 59 y/o female with hx of multiple (~30) back and spine surgeries, complex global myofascial pain syndrome, recurrent spinal stenosis, multiple sclerosis, mechanical thoracolumbar instability, admitted for surgical intervention and per notes completed: 1) inspection fusion mass (c-spine), 2) T1-3 laminectomies, 3) C7-T4 in situ fusion, 4) Inspection fusion mass (thoracolumbar spine), 5) posterior instrumentation T8-S1, 6) posteroir arthrodesis T8-S1, 7) bone allograft, 8) bone autograft, 9) complex wound closure (60cm). 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 Complaints of pain and pain mgmt has been consulted. Extensive conversation regarding her MS history which dates back to >10 years and reports previously on BetaSeron but felt no difference. States last MRI brain was 1 year ago, offered repeat which patient would like to defer and reports prior imaging stable and states she will not be able to stay flat and tolerate procedure. She does not want to start on MS meds and would like to focus on spinal mgmt at this time. As outpatient, would advise MRI brain with and without contrast to start with. Was being plaaned for ruff slide bilterally for feet but with temperature spikes. This morning respiration seem to be normalized andjust using nasal cannula as opposed to face mask that she was requiring yesterday. No longer tachycardic also slightly hypotensive which she reports is her baseline blood pressure. Unclear of whether procedure will be completed but patient does appear to have spin stabilized in terms her respiratory status. Patient reported RLE muscle spasms, requested Flexiril. Added to regiment, no mental status change. Leukocytosis improving, down to 10, patient fatigued appearing this morning. Discussed with nurse and possibly for procedure tomorrow, depending on orthopedist and patient's infectious status. Active Medications Amitriptyline HCl (Elavil -) 100 mg PO HS [facility] Last Admin: 09/23/19 21:01 Dose: 100 mg Benzocaine/Menthol (Cepacol Lozenge -) 1 each MM PRN PRN PRN Reason: SORE THROAT Last Admin: 09/17/19 17:36 Dose: 1 each Cyclobenzaprine HCl (Flexeril -) 10 mg PO BID [facility] Last Admin: 09/23/19 21:02 Dose: 10 mg Dexamethasone Sodium Phosphate (Decadron Injection -) 4 mg IVPUSH ONCE PRN PRN Reason: NAUSEA AND/OR VOMITING Diphenhydramine HCl (Benadryl -) 50 mg PO BID [facility] Last Admin: 09/23/19 21:01 Dose: 50 mg Furosemide (Lasix Injection -) 40 mg IVPUSH BID [facility] Last Admin: 09/23/19 21:02 Dose: 40 mg Gabapentin (Neurontin -) 600 mg PO TID [facility] Last Admin: 09/24/19 06:32 Dose: 600 mg Hydromorphone HCl (Dilaudid -) 8 mg PO Q6H PRN PRN Reason: PAIN LEVEL 6-10 Last Admin: 09/24/19 02:13 Dose: 8 mg Piperacillin Sod/Tazobactam (Sod 3.375 gm/ Dextrose) 50 mls @ 100 mls/hr IVPB Q8H-IV [facility]; Protocol Last Admin: 09/24/19 02:12 Dose: 100 mls/hr Lorazepam (Ativan Injection -) 2 mg IVPUSH TID PRN PRN Reason: ANXIETY Last Admin: 09/24/19 08:14 Dose: 2 mg Melatonin (Melatonin) 10 mg PO HS PRN PRN Reason: INSOMNIA Last Admin: 09/22/19 21:09 Dose: 10 mg Miscellaneous (Duragesic Patch Waste) 1 each TD PRN PRN PRN Reason: PAIN Mupirocin (Bactroban 2% Ointment -) 1 applic TP BID [facility] Last Admin: 09/23/19 21:01 Dose: 1 applic Ondansetron HCl (Zofran Injection) 4 mg IVPUSH Q6H PRN PRN Reason: NAUSEA AND/OR VOMITING Last Admin: 09/20/19 23:18 Dose: 4 mg Ondansetron HCl (Zofran Injection) 4 mg IVPUSH Q4H PRN PRN Reason: NAUSEA AND/OR VOMITING Oxycodone HCl (Roxicodone -) 30 mg PO Q8H PRN PRN Reason: PAIN LEVEL 7 - 10 Last Admin: 09/23/19 18:15 Dose: 30 mg Polyethylene Glycol (Miralax (For Daily Use) -) 17 gm PO BID [facility] Last Admin: 09/23/19 21:02 Dose: Not Given Promethazine HCl (Phenergan Injection -) 12.5 mg IVPB Q6H PRN PRN Reason: NAUSEA AND/OR VOMITING Zolpidem Tartrate (Ambien -) 5 mg PO HS PRN PRN Reason: INSOMNIA Last Admin: 09/23/19 21:02 Dose: 5 mg PHYSICAL EXAMINATION Vital Signs Period Temp Pulse Resp BP Sys/Gallagher Pulse Ox Last 24 Hr 98.3 F-99.3 F 74-90 12-24 91-118/45-65 96-97 GENERAL: Awake, alert, and fully oriented, in no acute distress. HEAD: Normal with no signs of trauma. EYES: Pupils equal, round and reactive to light, extraocular movements intact, sclera anicteric, conjunctiva clear. No lid lag. EARS, NOSE, THROAT: Ears normal, nares patent, oropharynx clear without exudates. Moist mucous membranes. NECK: Normal range of motion, supple without lymphadenopathy, JVD, or masses. LUNGS: Breath sounds equal, clear to auscultation bilaterally. No wheezes, and no crackles. No accessory muscle use. HEART: Regular rate and rhythm, normal S1 and S2 without murmur, rub or gallop. ABDOMEN: Soft, nontender, not distended, normoactive bowel sounds, no guarding, no rebound, no masses. No hepatomegaly or splenomegaly. MUSCULOSKELETAL: Normal range of motion at all joints. No bony deformities or tenderness. No CVA tenderness. UPPER EXTREMITIES: 2+ pulses, warm, well-perfused. No cyanosis. No clubbing. Cap refill <2 seconds. No peripheral edema. LOWER EXTREMITIES: 2+ pulses, warm, well-perfused. No calf tenderness. No peripheral edema. NEUROLOGICAL: Cranial nerves II-XII intact. Normal speech. Normal gait. PSYCHIATRIC: Cooperative. Good eye contact. Appropriate mood and affect. SKIN: Warm, dry, normal turgor, no rashes or lesions noted. 2 CBCD WBC 10.0 K/mm3 (4.0-10.0) 09/24/19 06:45 RBC 3.38 M/mm3 (3.60-5.2) L 09/24/19 06:45 Hgb 10.1 GM/dL (10.7-15.3) L 09/24/19 06:45 Hct 30.3 % (32.4-45.2) L 09/24/19 06:45 MCV 89.7 fl (80-96) 09/24/19 06:45 MCHC 33.4 g/dl (32.0-36.0) 09/24/19 06:45 RDW 14.6 % (11.6-15.6) 09/24/19 06:45 Plt Count 792 K/MM3 (134-434) H 09/24/19 06:45 MPV 7.5 fl (7.5-11.1) 09/24/19 06:45 CMP Sodium 137 mmol/L (136-145) 09/24/19 06:11 Potassium 4.3 mmol/L (3.5-5.1) 09/24/19 06:11 Chloride 98 mmol/L (98-107) 09/24/19 06:11 Carbon Dioxide 35 mmol/L (21-32) H 09/24/19 06:11 Anion Gap 3 MMOL/L (8-16) L 09/24/19 06:11 BUN 15.3 mg/dL (7-18) 09/24/19 06:11 Creatinine 0.6 mg/dL (0.55-1.3) 09/24/19 06:11 Random Glucose 97 mg/dL (74-106) 09/24/19 06:11 Calcium 8.9 mg/dL (8.5-10.1) 09/24/19 06:11 Total Bilirubin 0.4 mg/dL (0.2-1) 09/24/19 06:11 AST 26 U/L (15-37) 09/24/19 06:11 ALT 29 U/L (13-61) 09/24/19 06:11 Alkaline Phosphatase 273 U/L (45-117) H 09/24/19 06:11 Total Protein 7.0 g/dl (6.4-8.2) 09/24/19 06:11 Albumin 2.3 g/dl (3.4-5.0) L 09/24/19 06:11 ASSESSMENT/PLAN: 59 y/o female with hx of multiple (~30) back and spine surgeries, complex global myofascial pain syndrome, recurrent spinal stenosis, multiple sclerosis, mechanical thoracolumbar instability, POD #0 s/p 1) inspection fusion mass (c- spine), 2) T1-3 laminectomies, 3) C7-T4 in situ fusion, 4) Inspection fusion mass (thoracolumbar spine), 5) posterior instrumentation T8-S1, 6) posteroir arthrodesis T8-S1, 7) bone allograft, 8) bone autograft, 9) complex wound closure (60cm). 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 Complaints of pain and pain mgmt has been consulted. Extensive conversation regarding her MS history which dates back to > 10 years and reports previously on BetaSeron but felt no difference. States last MRI brain was 1 year ago, offered repeat which patient would like to defer and reports prior imaging stable and states she will not be able to stay flat and tolerate procedure. She does not want to start on MS meds and would like to focus on spinal mgmt at this time. As outpatient, would advise MRI brain with and without contrast to start with. Was being plaaned for ruff slide bilterally for feet but with temperature spikes. This morning respiration seem to be normalized andjust using nasal cannula as opposed to face mask that she was requiring yesterday. No longer tachycardic also slightly hypotensive which she reports is her baseline blood pressure. Unclear of whether procedure will be completed but patient does appear to have spin stabilized in terms her respiratory status. Patient reported RLE muscle spasms, requested Flexiril. Added to regiment, no mental status change. Reports spasms improved. Informed hospitalist that if any issues with the medication can be d/donna. Ortho following and managing regiment. Continue orthopedic follow-up, caution with pain medications, continue monitor respiratory optimization. Leukocytosis improving, down to 10, patient fatigued appearing this morning. Discussed with nurse and possibly for procedure tomorrow, depending on orthopedist and patient 's infectious status. Remains on ZOsyn, ID following. Critical care time 35 mins.
--- NOTE | 2019-09-24 08:59 | PN ---
Physical Exam: SUBJECTIVE: Patient seen and examined. No acute events overnight. OBJECTIVE: Vital Signs Period Temp Pulse Resp BP Sys/Gallagher Pulse Ox Last 24 Hr 98.3 F-99.3 F 74-90 12-24 91-118/45-65 96-97 GENERAL: NAD, A&O x3. HEAD: Normal with no signs of trauma. EYES: PERRL, extraocular movements intact ENT: Ears normal, nares patent, dry mucous membranes. NECK: Trachea midline. LUNGS: Mild bibasilar crackles, improving. No wheezes. Pt off of HFOT, now on 5L NC HEART: Regular rate and rhythm, no murmur ABDOMEN: Soft, nontender, nondistended, normoactive bowel sounds BACK: Pinpoint area of erythema on left upper back just lateral to bandage EXTREMITIES: Warm, well-perfused, no edema. Can actively move both feet L>R. NEUROLOGICAL: Normal speech. CN II-XII intact. Gait not observed. SKIN: Warm, dry, normal turgor. Laboratory Results - last 24 hr CBC, BMP 09/24/19 06:45 09/24/19 06:11 Active Medications Amitriptyline HCl (Elavil -) 100 mg PO HS [facility] Last Admin: 09/23/19 21:01 Dose: 100 mg Benzocaine/Menthol (Cepacol Lozenge -) 1 each MM PRN PRN PRN Reason: SORE THROAT Last Admin: 09/17/19 17:36 Dose: 1 each Cyclobenzaprine HCl (Flexeril -) 10 mg PO BID [facility] Last Admin: 09/23/19 21:02 Dose: 10 mg Dexamethasone Sodium Phosphate (Decadron Injection -) 4 mg IVPUSH ONCE PRN PRN Reason: NAUSEA AND/OR VOMITING Diphenhydramine HCl (Benadryl -) 50 mg PO BID [facility] Last Admin: 09/23/19 21:01 Dose: 50 mg Furosemide (Lasix Injection -) 40 mg IVPUSH BID [facility] Last Admin: 09/23/19 21:02 Dose: 40 mg Gabapentin (Neurontin -) 600 mg PO TID [facility] Last Admin: 09/24/19 06:32 Dose: 600 mg Hydromorphone HCl (Dilaudid -) 8 mg PO Q6H PRN PRN Reason: PAIN LEVEL 6-10 Last Admin: 09/24/19 02:13 Dose: 8 mg Piperacillin Sod/Tazobactam (Sod 3.375 gm/ Dextrose) 50 mls @ 100 mls/hr IVPB Q8H-IV [facility]; Protocol Last Admin: 09/24/19 02:12 Dose: 100 mls/hr Lorazepam (Ativan Injection -) 2 mg IVPUSH TID PRN PRN Reason: ANXIETY Last Admin: 09/24/19 08:14 Dose: 2 mg Melatonin (Melatonin) 10 mg PO HS PRN PRN Reason: INSOMNIA Last Admin: 09/22/19 21:09 Dose: 10 mg Miscellaneous (Duragesic Patch Waste) 1 each TD PRN PRN PRN Reason: PAIN Mupirocin (Bactroban 2% Ointment -) 1 applic TP BID [facility] Last Admin: 09/23/19 21:01 Dose: 1 applic Ondansetron HCl (Zofran Injection) 4 mg IVPUSH Q6H PRN PRN Reason: NAUSEA AND/OR VOMITING Last Admin: 09/20/19 23:18 Dose: 4 mg Ondansetron HCl (Zofran Injection) 4 mg IVPUSH Q4H PRN PRN Reason: NAUSEA AND/OR VOMITING Oxycodone HCl (Roxicodone -) 30 mg PO Q8H PRN PRN Reason: PAIN LEVEL 7 - 10 Last Admin: 09/23/19 18:15 Dose: 30 mg Polyethylene Glycol (Miralax (For Daily Use) -) 17 gm PO BID [facility] Last Admin: 09/23/19 21:02 Dose: Not Given Promethazine HCl (Phenergan Injection -) 12.5 mg IVPB Q6H PRN PRN Reason: NAUSEA AND/OR VOMITING Zolpidem Tartrate (Ambien -) 5 mg PO HS PRN PRN Reason: INSOMNIA Last Admin: 09/23/19 21:02 Dose: 5 mg ASSESSMENT/PLAN: Ms. Tafoya is a 59y/o female with multiple (~30) back and spine surgeries, complex global myofascial pain syndrome, recurrent spinal stenosis, multiple sclerosis, and mechanical thoracolumbar instability who presents for spinal surgery. #ARDS likely 2/2 pneumonia CTA (09/18): Thickening of interstitial septi and diffuse groundglass opacities with pleural effusions suggesting ARDS CXR (09/23): increased aeration, BL opacities. F/u daily CXR for progress Zosyn 3.375gm Q8H per ID (Dr. Bennett) on Day 7 F/u blood, urine, and sputum cx, no growth. Cont Lasix to 40mg BID Weaned off of HFOT to 5L NC, tolerating well Incentive spirometry #Complex spinal pain 2/2 mechanical instability and myofascial decompensation s/ p multi-level spinal intervention, POD 7. Planned achilles lengthening procedure with ortho (Toriein), delayed due to HFOT and pyrexia. Pt now stable on NC, planned OR tomorrow. Defer pain control to anesthesiology: Scheduled IV tylenol Dilaudid 8mg PO Q6H prn Oxycodone 30mg Q8H prn Gabapentin 300mg TID Ativan 2mg TID prn for muscle spasms Amitryptiline 100mg po HS Zofran PRN Ambien 5m HS for insomina PT eval daily. No bending, lifting (>5 lbs), or twisting for 9-12 months, f/ u 7-10 days after rehab d/c #Normocytic anemia Hgb: 10.1, stabilized FOBT: negative Hold off on units for now Cont to monitor closely #Hypomagnesemia M.0 today Cont to monitor daily #FEN Monitor Mg and Hb NPO at midnight for surgery #Dispo: Surgery deferred until ARDS improves Monitor in ICU SNF Visit type - Emergency Visit Emergency Visit: No - New Patient This patient is new to me today: No - Critical Care Critical Care patient: Yes Total Critical Care Time (in minutes): 35 Critical Care Statement: The care of this patient involved high complexity decision making to prevent further life threatening deterioration of the patient 's condition and/or to evaluate & treat vital organ system(s) failure or risk of failure. ATTENDING PHYSICIAN STATEMENT I saw and evaluated the patient. I reviewed the resident's note and discussed the case with the resident. I agree with the resident's findings and plan as documented. SUBJECTIVE: OBJECTIVE: ASSESSMENT AND PLAN:
[2019-09-24] MEDS: POLYETHYLENE GLYCOL 3350 119 GM BTL PO SCH ×2 (09:03→21:51)
[2019-09-24] MEDS: MUPIROCIN 2% TOPICAL OINTMENT 22 GM TUBE TP SCH ×2 (09:06→21:51)
[2019-09-24] MEDS: FUROSEMIDE 40 MG/4 ML INJECTABLE VIAL IVPUSH SCH ×2 (09:26→21:13)
--- NOTE | 2019-09-24 11:48 | PN ---
Teaching Attending Note Name of Resident: Lucas Vasques ATTENDING PHYSICIAN STATEMENT I saw and evaluated the patient. I reviewed the resident's note and discussed the case with the resident. I agree with the resident's findings and plan as documented. SUBJECTIVE: Pt seen and examined in the ICU. Transitioned to nasal cannula. Continues to diurese well. OBJECTIVE: Vital Signs Period Temp Pulse Resp BP Sys/Gallagher Pulse Ox Last 24 Hr 98.3 F-99.3 F 74-90 12-24 91-109/45-65 97 Intake & Output 09/21/19 09/22/19 09/23/19 09/24/19 23:59 23:59 23:59 23:59 Intake Total 600 730 150 Output Total 4000 2400 3200 1500 Balance -3400 -1670 -3050 -1500 Weight 100.698 kg 100.698 kg 100.698 kg 100.743 kg Gen: less tachypneic Heart: RRR Lung: decreased breath sounds at the bases Abd: soft, nontender Ext: no edema CBC, BMP 09/24/19 06:45 09/24/19 06:11 Active Medications Amitriptyline HCl (Elavil -) 100 mg PO HS [facility] [place] Last Admin: 09/23/19 21:01 Dose: 100 mg Benzocaine/Menthol (Cepacol Lozenge -) 1 each MM PRN PRN PRN Reason: SORE THROAT Last Admin: 09/17/19 17:36 Dose: 1 each Cyclobenzaprine HCl (Flexeril -) 10 mg PO BID [facility] [place] Last Admin: 09/23/19 21:02 Dose: 10 mg Dexamethasone Sodium Phosphate (Decadron Injection -) 4 mg IVPUSH ONCE PRN PRN Reason: NAUSEA AND/OR VOMITING Diphenhydramine HCl (Benadryl -) 50 mg PO BID [facility] Last Admin: 09/23/19 21:01 Dose: 50 mg Furosemide (Lasix Injection -) 40 mg IVPUSH BID [facility] Last Admin: 09/24/19 09:26 Dose: 40 mg Gabapentin (Neurontin -) 600 mg PO TID [facility] Last Admin: 09/24/19 06:32 Dose: 600 mg Hydromorphone HCl (Dilaudid -) 8 mg PO Q6H PRN PRN Reason: PAIN LEVEL 6-10 Last Admin: 09/24/19 08:45 Dose: 8 mg Piperacillin Sod/Tazobactam (Sod 3.375 gm/ Dextrose) 50 mls @ 100 mls/hr IVPB Q8H-IV [facility]; Protocol Last Admin: 09/24/19 09:03 Dose: 100 mls/hr Lorazepam (Ativan Injection -) 2 mg IVPUSH TID PRN PRN Reason: ANXIETY Last Admin: 09/24/19 08:14 Dose: 2 mg Melatonin (Melatonin) 10 mg PO HS PRN PRN Reason: INSOMNIA Last Admin: 09/22/19 21:09 Dose: 10 mg Miscellaneous (Duragesic Patch Waste) 1 each TD PRN PRN PRN Reason: PAIN Mupirocin (Bactroban 2% Ointment -) 1 applic TP BID [facility] [place] Last Admin: 09/24/19 09:06 Dose: 1 applic Ondansetron HCl (Zofran Injection) 4 mg IVPUSH Q6H PRN PRN Reason: NAUSEA AND/OR VOMITING Last Admin: 09/20/19 23:18 Dose: 4 mg Ondansetron HCl (Zofran Injection) 4 mg IVPUSH Q4H PRN PRN Reason: NAUSEA AND/OR VOMITING Oxycodone HCl (Roxicodone -) 30 mg PO Q8H PRN PRN Reason: PAIN LEVEL 7 - 10 Last Admin: 09/23/19 18:15 Dose: 30 mg Polyethylene Glycol (Miralax (For Daily Use) -) 17 gm PO BID [facility] [place] Last Admin: 09/24/19 09:03 Dose: Not Given Promethazine HCl (Phenergan Injection -) 12.5 mg IVPB Q6H PRN PRN Reason: NAUSEA AND/OR VOMITING Zolpidem Tartrate (Ambien -) 5 mg PO HS PRN PRN Reason: INSOMNIA Last Admin: 09/23/19 21:02 Dose: 5 mg ASSESSMENT AND PLAN: Progressive Kyphoscoliosis s/p T1-T3 Laminectomies/C7-T4 Fusion/T8-S1 Posterior Instrumentation/Arthrodesis Anemia Acute Hypoxic Respiratory Failure Volume Overload Pleural Effusions r/o Pneumonia - continue antibiotics - O2 to keep SpO2 >90% - continue lasix - monitor urine output, creatinine - keep net negative - pain control - incentive spirometry - PO as tolerated - antiemetics - activity/diet/DVT prophylaxis per surgery - continue ICU monitoring
--- NOTE | 2019-09-24 12:03 | PN ---
Teaching Attending Note Name of Resident: Chanda Graham ATTENDING PHYSICIAN STATEMENT I saw and evaluated the patient. I reviewed the resident's note and discussed the case with the resident. I agree with the resident's findings and plan as documented. SUBJECTIVE: Awake, alert, responsive, answers questions appropriately. Lethargy and agitation resolved. More positive this AM. OBJECTIVE: Fever resolved. Hemodynamically Stable. AAO x 3. Weaned of high flow O2 with SpO2 97% on 3L via NC. Last Vital Signs Temp Pulse Resp BP Pulse Ox 98.4 F 82 12 106/56 L 97 09/24/19 08:00 09/24/19 10:00 09/24/19 10:00 09/24/19 10:00 09/24/19 08:13 Heart - S1, S2, RRR Lungs - decreased air entry at bases. Abdomen - Soft, non-tender. Bowel Sounds normal. Extremities - mild edema, no calf tenderness. RLE paresis, altered sensation ( chronic) Laboratory Results - last 24 hr 09/24/19 09/24/19 06:11 06:45 WBC 10.0 RBC 3.38 L Hgb 10.1 L Hct 30.3 L MCV 89.7 MCH 30.0 MCHC 33.4 RDW 14.6 Plt Count 792 H MPV 7.5 Absolute Neuts (auto) 6.1 Neutrophils % 61.3 Lymphocytes % 25.8 Monocytes % 5.1 Eosinophils % 7.0 H Basophils % 0.8 Nucleated RBC % 0 Sodium 137 Potassium 4.3 Chloride 98 Carbon Dioxide 35 H Anion Gap 3 L BUN 15.3 Creatinine 0.6 Est GFR (CKD-EPI)AfAm 117.27 Est GFR (CKD-EPI)NonAf 101.18 Random Glucose 97 Calcium 8.9 Phosphorus 3.6 Magnesium 2.3 Total Bilirubin 0.4 AST 26 ALT 29 Alkaline Phosphatase 273 H Total Protein 7.0 Albumin 2.3 L Current Medications Generic Name Dose Route Start Last Admin Trade Name Freq PRN Reason Stop Dose Admin Amitriptyline HCl 100 mg 09/10/19 16:26 09/23/19 21:01 Elavil - PO 100 mg HS ARNIE Administration Benzocaine/Menthol 1 each 09/17/19 12:19 09/17/19 17:36 Cepacol Lozenge - MM 1 each PRN PRN Administration SORE THROAT Cyclobenzaprine HCl 10 mg 09/21/19 12:45 09/23/19 21:02 Flexeril - PO 10 mg BID ARNIE Administration Dexamethasone Sodium Phosphate 4 mg 09/11/19 18:40 Decadron Injection - IVPUSH ONCE PRN NAUSEA AND/OR VOMITING Diphenhydramine HCl 50 mg 09/15/19 10:00 09/23/19 21:01 Benadryl - PO 50 mg BID ARNIE Administration Furosemide 40 mg 09/23/19 11:15 09/24/19 09:26 Lasix Injection - IVPUSH 40 mg BID ARNIE Administration Gabapentin 600 mg 09/13/19 14:00 09/24/19 06:32 Neurontin - PO 600 mg TID ARNIE Administration Hydromorphone HCl 8 mg 09/22/19 07:58 09/24/19 08:45 Dilaudid - PO 8 mg Q6H PRN Administration PAIN LEVEL 6-10 Piperacillin Sod/Tazobactam 50 mls @ 100 mls/hr 09/18/19 18:00 09/24/19 09:03 Sod 3.375 gm/ Dextrose IVPB 100 mls/hr Q8H-IV ARNIE Administration Protocol Lorazepam 2 mg 09/23/19 11:04 09/24/19 08:14 Ativan Injection - IVPUSH 2 mg TID PRN Administration ANXIETY Melatonin 10 mg 09/19/19 19:22 09/22/19 21:09 Melatonin PO 10 mg HS PRN Administration INSOMNIA Miscellaneous 1 each 09/21/19 22:19 Duragesic Patch Waste TD PRN PRN PAIN Mupirocin 1 applic 09/15/19 10:45 09/24/19 09:06 Bactroban 2% Ointment - TP 1 applic BID ARNIE Administration Ondansetron HCl 4 mg 09/09/19 16:47 09/20/19 23:18 Zofran Injection IVPUSH 4 mg Q6H PRN Administration NAUSEA AND/OR VOMITING Ondansetron HCl 4 mg 09/11/19 18:40 Zofran Injection IVPUSH Q4H PRN NAUSEA AND/OR VOMITING Oxycodone HCl 30 mg 09/22/19 10:32 09/23/19 18:15 Roxicodone - PO 30 mg Q8H PRN Administration PAIN LEVEL 7 - 10 Polyethylene Glycol 17 gm 09/17/19 22:00 09/24/19 09:03 Miralax (For Daily Use) - PO Not Given BID ARNIE Promethazine HCl 12.5 mg 09/11/19 18:43 Phenergan Injection - IVPB Q6H PRN NAUSEA AND/OR VOMITING Zolpidem Tartrate 5 mg 09/23/19 19:29 09/23/19 21:02 Ambien - PO 5 mg HS PRN Administration INSOMNIA Home Medications Medication Instructions Recorded Amitriptyline HCl [Elavil -] 50 mg PO HS 01/16/19 Oxycodone HCl 60 mg PO Q8H 01/16/19 HYDROmorphone [Dilaudid -] 8 mg PO Q6H PRN 03/04/19 Cyclobenzaprine HCl 1 tab PO TID 03/05/19 LORazepam [Ativan] 2 mg PO TID tablet MDD 6mg 03/11/19 Amitriptyline HCl 100 mg PO TID 09/06/19 Alprazolam [Xanax] 0.5 mg PO BID 09/12/19 Fluoxetine HCl 10 mg PO BID 09/12/19 Prednisone 5 mg PO QID 09/12/19 ASSESSMENT AND PLAN: 59 year old female with history of MS, recurrent lumbar spinal stenosis, s/p multiple back surgeries, complex global myofascial pain syndrome, mechanical thoracolumbar instability, admitted for spine surgery. POD 15 s/p 1. Inspection fusion mass (cervical spine). 2. T1, T2, T3 laminectomies. 3. C7 -T4 in situ fusion. 4. Inspection fusion mass (thoracolumbar spine). 5. Posterior instrumentation T8-S1. 6. Posterior arthrodesis T8-S1. 7. Bone allograft. 8. Bone autograft. 9. Complex wound closure 1. 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 Dilaudid PRN for pain management. Contiue Dilaudid prn, Elavil, Neurontin, Ativan Deferral of Aguilar's procedure planned for achilles tendon release due to fever, mental status change and hypoxic resp failure - now unclear when rescheduled for. Further management as per Ortho. 2. Acute Hypoxic respiratory failure and Sepsis secondary to Pneumonia, fluid overload, ARDS Weaned off high flow, now on 3L via NC. Clinically improving. Fever resolved. CTA Chest neg for PE but shows bilateral interstitial infiltrates + fluid ? Pneumonia +/- ARDS Responding to IV lasix. Repeat CXR shows improved aeration. Blood Cx neg. Urine Cx contaminated. Continue IV Zosyn for HCAP (Day 7). Further Abx therapy as per ID Monitor respiratory status. 3. Acute Metabolic Encephalopathy secondary to Hypoxia + Sepsis - resolved. AAO x 3, agitation/confusion resolved. Now depressed and intermittently tearful and frustrated due to Surgery. Resumed on Ativan, which patient takes chronically for anxiety. 4. Anemia - normocytic s/p spinal surgery. No evidence of ongoing blood loss Will monitor H/H and transfuse if necessary. 5. Hypokalemia - resolved s/p repletion. DVT Px - SCDs
[2019-09-24] MEDS ORDERED: ACETAMINOPHEN 1000 MG/100 ML VIAL (NON FORMULARY) IVPB ONE (12:32)
[2019-09-24] MEDS: diphenhydrAMINE HCL 25 MG CAPSULE (FP) PO SCH ×2 (12:54→21:13)
[2019-09-24] MEDS: CYCLOBENZAPRINE HCL 10 MG TABLET (FP) PO SCH ×2 (12:55→21:13)
--- NOTE | 2019-09-24 13:02 | PN ---
Progress Note, Physician History of Present Illness: AWAKE. MORE RESPONSIVE OFFERS NO COMPLAINTS AFEBRILE BREATHING NON-LABORED ON NASAL CANNULA CXR DECREASED BILATERAL INFILTRATES LEGIONELLA AG NEGATIVE - Current Medication List Current Medications: Active Medications Amitriptyline HCl (Elavil -) 100 mg PO HS [facility] Last Admin: 09/23/19 21:01 Dose: 100 mg Benzocaine/Menthol (Cepacol Lozenge -) 1 each MM PRN PRN PRN Reason: SORE THROAT Last Admin: 09/17/19 17:36 Dose: 1 each Cyclobenzaprine HCl (Flexeril -) 10 mg PO BID [facility] Last Admin: 09/24/19 12:55 Dose: 10 mg Dexamethasone Sodium Phosphate (Decadron Injection -) 4 mg IVPUSH ONCE PRN PRN Reason: NAUSEA AND/OR VOMITING Diphenhydramine HCl (Benadryl -) 50 mg PO BID [facility] Last Admin: 09/24/19 12:54 Dose: 50 mg Furosemide (Lasix Injection -) 40 mg IVPUSH BID [facility] Last Admin: 09/24/19 09:26 Dose: 40 mg Gabapentin (Neurontin -) 600 mg PO TID [facility] Last Admin: 09/24/19 06:32 Dose: 600 mg Hydromorphone HCl (Dilaudid -) 8 mg PO Q6H PRN PRN Reason: PAIN LEVEL 6-10 Last Admin: 09/24/19 08:45 Dose: 8 mg Piperacillin Sod/Tazobactam (Sod 3.375 gm/ Dextrose) 50 mls @ 100 mls/hr IVPB Q8H-IV [facility]; Protocol Last Admin: 09/24/19 09:03 Dose: 100 mls/hr Lorazepam (Ativan Injection -) 2 mg IVPUSH TID PRN PRN Reason: ANXIETY Last Admin: 09/24/19 08:14 Dose: 2 mg Melatonin (Melatonin) 10 mg PO HS PRN PRN Reason: INSOMNIA Last Admin: 09/22/19 21:09 Dose: 10 mg Miscellaneous (Duragesic Patch Waste) 1 each TD PRN PRN PRN Reason: PAIN Mupirocin (Bactroban 2% Ointment -) 1 applic TP BID [facility] Last Admin: 09/24/19 09:06 Dose: 1 applic Ondansetron HCl (Zofran Injection) 4 mg IVPUSH Q6H PRN PRN Reason: NAUSEA AND/OR VOMITING Last Admin: 09/20/19 23:18 Dose: 4 mg Ondansetron HCl (Zofran Injection) 4 mg IVPUSH Q4H PRN PRN Reason: NAUSEA AND/OR VOMITING Oxycodone HCl (Roxicodone -) 30 mg PO Q8H PRN PRN Reason: PAIN LEVEL 7 - 10 Last Admin: 09/23/19 18:15 Dose: 30 mg Polyethylene Glycol (Miralax (For Daily Use) -) 17 gm PO BID ARNIE Last Admin: 09/24/19 09:03 Dose: Not Given Promethazine HCl (Phenergan Injection -) 12.5 mg IVPB Q6H PRN PRN Reason: NAUSEA AND/OR VOMITING Zolpidem Tartrate (Ambien -) 5 mg PO HS PRN PRN Reason: INSOMNIA Last Admin: 09/23/19 21:02 Dose: 5 mg - Objective Vital Signs: Vital Signs Temperature 98.6 F 09/24/19 12:00 Pulse Rate 85 09/24/19 12:00 Respiratory Rate 14 09/24/19 12:00 Blood Pressure 105/64 09/24/19 12:00 O2 Sat by Pulse Oximetry (%) 97 09/24/19 08:13 Constitutional: Yes: No Distress Eyes: Yes: Conjunctiva Clear Cardiovascular: Yes: Regular Rate and Rhythm, S1, S2 Respiratory: Yes: Diminished Gastrointestinal: Yes: Normal Bowel Sounds, Soft. No: Tenderness Extremities: Yes: Calf Tenderness Edema: No Labs: CBC, BMP 09/24/19 06:45 09/24/19 06:11 INR, PTT INR 1.14 (0.83-1.09) H 09/23/19 05:15 Assessment/Plan R/O PNEUMONIA/ ARDS CXR IMPROVED UTI S/P LAMINECTOMY CONTINUE ZOSYN
[2019-09-24] MEDS ORDERED: LORazepam 2 MG/ML SDV VIAL IVPUSH ONE (19:55)
[2019-09-24] MEDS: oxyCODONE HCL 5 MG TABLET PO PRN (19:57)
[2019-09-24] MEDS ORDERED: PT OWN MED DRAWER 7, Y5N ONE (21:12)
[2019-09-24] MEDS: AMITRIPTYLINE HCL 25 MG TABLET (FP) PO SCH (21:14)
[2019-09-24] MEDS: ZOLPIDEM TARTRATE 5 MG TABLET PO PRN (23:06)
--- NOTE | 2019-09-24 23:40 | PN ---
Progress Note (short form) - Note Progress Note: 59F s/p posterior thoracic decompression, cervicothoracic in situ fusion, and revision thoracolumbar instrumented fusion POD #14 Pain well controlled. (+) B/L Achilles contractures. Pt. denies overnight history of headaches, chest pain, shortness of breath, nausea, vomiting, chills, & sweats. (+) Voiding; (+) Flatus; (+) BM. All labs and vitals reviewed. PE: AAO x 3, NAD. T/L-Spine: Incision, dressing C/D/I. B/L LE NV status at baseline; paraparesis. 59F s/p posterior thoracic decompression, cervicothoracic in situ fusion, and revision thoracolumbar instrumented fusion POD #13. -NPO, IVF at midnight. -Pre-op for tomorrow for bilateral Achilles tendon lengthening. -Pain control: NO NSAID's. -Nursing care: fastidious avoidance of decubitus ulcers; log roll/place on wedge pillows every 2 hours; rolled up towels under the ankles to offload the heels. -DVT PPx: -Mechanical only: MIGUEL ANGEL's, SCD's. -Chemical: None. -Incentive spirometry q15 min. -PT/OT/Rehab, OOB. -WBAT B/L LE. -No bending, lifting (>5 lbs), or twisting for 9-12 months. -Care per ICU & medical hospitalist team. -Discharge planning: Rehab; f/u 7-10 days after discharge from [facility] office; call for appointment; . -Will follow. Will require special needs for paraparesis To attempt assisted ambulation A) Feet need to be plantagrade B) Knee extension essential to stand Bracing a) FEET__ with Bilateral AFO b) KNEEBledsoe type brace needs a drop lock Device Shayan Marina MD (Orthopaedic Surgery).
[2019-09-25] MEDS ORDERED: PIPERACILLIN/TAZOBACTAM 3.375 GM VIAL IVPB ONE ×3 (01:39→17:03)
[2019-09-25] MEDS ORDERED: DEXTROSE 5%-WATER - 50 ML IVPB ONE ×3 (01:39→17:03)
[2019-09-25] MEDS: PIPERACILLIN/TAZOB 3.375 GM 3.375 GM in DEXTROSE 5%-WATER - 50 ML IVPB SCH ×3 (01:46→17:39)
[2019-09-25] MEDS: GABAPENTIN 300 MG CAPSULE (FP) PO SCH ×3 (06:19→21:14)
[2019-09-25 06:26] LABS: HEMATOCRIT 31.2 % (32.4-45.2); HEMOGLOBIN 10.4 GM/dL (10.7-15.3); MCHC 33.3 g/dl (32.0-36.0); MEAN CELL VOLUME 90.1 fl (80-96); MEAN PLT VOLUME 7.4 fl (7.5-11.1); PLATELET COUNT 778 K/MM3 (134-434); RBC 3.46 M/mm3 (3.60-5.2); RDW 14.6 % (11.6-15.6); WHITE BLOOD COUNT 8.4 K/mm3 (4.0-10.0)
[2019-09-25 06:41] LABS: INR 1.16 (0.83-1.09); PROTHROMBIN TIME (PATIENT) 13.7 SEC (9.7-13.0)
--- NOTE | 2019-09-25 07:15 | PN ---
Physical Exam: SUBJECTIVE: Patient seen and examined by the bedside. Complains of Rt leg pain, no SOB, chest pain, insomnia, or anxiety. OBJECTIVE: Vital Signs Period Temp Pulse Resp BP Sys/Gallagher Pulse Ox Last 24 Hr 97.7 F-98.6 F 71-86 11-17 94-106/48-68 97-97 GENERAL: The patient is AOx3, and fully oriented, pain well controlled HEAD: Normal with no signs of trauma. EYES: PERRL, extraocular movements intact, sclera anicteric, conjunctiva clear. No ptosis. LUNGS: Breath sounds equal, clear to auscultation bilaterally, no wheezes, no crackles, no accessory muscle use. HEART: Regular rate and rhythm, S1, S2 without murmur, rub or gallop. ABDOMEN: Soft, nontender, nondistended, normoactive bowel sounds, no guarding, no rebound, no hepatosplenomegaly, no masses. EXTREMITIES: 2+ pulses, warm, well-perfused, no edema. NEUROLOGICAL: Motor strength upper limb 3/5, lower limb 1/5, sensations intact in all extremities Laboratory Results - last 24 hr 09/24/19 09/24/19 09/25/19 06:11 06:45 05:30 WBC 10.0 RBC 3.38 L Hgb 10.1 L Hct 30.3 L MCV 89.7 MCH 30.0 MCHC 33.4 RDW 14.6 Plt Count 792 H MPV 7.5 Absolute Neuts (auto) 6.1 Neutrophils % 61.3 Lymphocytes % 25.8 Monocytes % 5.1 Eosinophils % 7.0 H Basophils % 0.8 Nucleated RBC % 0 PT with INR 13.70 H INR 1.16 H Sodium 137 Potassium 4.3 Chloride 98 Carbon Dioxide 35 H Anion Gap 3 L BUN 15.3 Creatinine 0.6 Est GFR (CKD-EPI)AfAm 117.27 Est GFR (CKD-EPI)NonAf 101.18 Random Glucose 97 Calcium 8.9 Phosphorus 3.6 Magnesium 2.3 Total Bilirubin 0.4 AST 26 ALT 29 Alkaline Phosphatase 273 H Total Protein 7.0 Albumin 2.3 L Active Medications Generic Name Dose Route Start Last Admin Trade Name Freq PRN Reason Stop Dose Admin Amitriptyline HCl 100 mg 09/10/19 16:26 09/24/19 21:14 Elavil - PO 100 mg HS ARNIE Administration Benzocaine/Menthol 1 each 09/17/19 12:19 09/17/19 17:36 Cepacol Lozenge - MM 1 each PRN PRN Administration SORE THROAT Cyclobenzaprine HCl 10 mg 09/21/19 12:45 09/24/19 21:13 Flexeril - PO 10 mg BID ARINE Administration Dexamethasone Sodium Phosphate 4 mg 09/11/19 18:40 Decadron Injection - IVPUSH ONCE PRN NAUSEA AND/OR VOMITING Diphenhydramine HCl 50 mg 09/15/19 10:00 09/24/19 21:13 Benadryl - PO 50 mg BID ARNIE Administration Furosemide 40 mg 09/23/19 11:15 09/24/19 21:13 Lasix Injection - IVPUSH 40 mg BID ARNIE Administration Gabapentin 600 mg 09/13/19 14:00 09/25/19 06:19 Neurontin - PO 600 mg TID ARNIE Administration Hydromorphone HCl 8 mg 09/22/19 07:58 09/25/19 04:51 Dilaudid - PO 8 mg Q6H PRN Administration PAIN LEVEL 6-10 Piperacillin Sod/Tazobactam 50 mls @ 100 mls/hr 09/18/19 18:00 09/25/19 01:46 Sod 3.375 gm/ Dextrose IVPB 100 mls/hr Q8H-IV ARNIE Administration Protocol Lorazepam 2 mg 09/23/19 11:04 09/24/19 23:05 Ativan Injection - IVPUSH 2 mg TID PRN Administration ANXIETY Melatonin 10 mg 09/19/19 19:22 09/22/19 21:09 Melatonin PO 10 mg HS PRN Administration INSOMNIA Miscellaneous 1 each 09/21/19 22:19 Duragesic Patch Waste TD PRN PRN PAIN Mupirocin 1 applic 09/15/19 10:45 09/24/19 21:51 Bactroban 2% Ointment - TP 1 applic BID ARNIE Administration Ondansetron HCl 4 mg 09/09/19 16:47 09/20/19 23:18 Zofran Injection IVPUSH 4 mg Q6H PRN Administration NAUSEA AND/OR VOMITING Ondansetron HCl 4 mg 09/11/19 18:40 Zofran Injection IVPUSH Q4H PRN NAUSEA AND/OR VOMITING Oxycodone HCl 30 mg 09/22/19 10:32 09/24/19 19:57 Roxicodone - PO 30 mg Q8H PRN Administration PAIN LEVEL 7 - 10 Polyethylene Glycol 17 gm 09/17/19 22:00 09/24/19 21:51 Miralax (For Daily Use) - PO Not Given BID ARNIE Promethazine HCl 12.5 mg 09/11/19 18:43 Phenergan Injection - IVPB Q6H PRN NAUSEA AND/OR VOMITING Zolpidem Tartrate 5 mg 09/23/19 19:29 09/24/19 23:06 Ambien - PO 5 mg HS PRN Administration INSOMNIA ASSESSMENT/PLAN: This is a 59 YO F with PMH significant for MS, recurrent spinal stenosis, multiple spinal surgeries. POD #14 for posterior thoracic decompression, cervicothoracic in situ fusion, and revision thoracolumbar instrumented fusion. Bakers Slide procedure planned today. #Respiratory - CXR: increased lung markings compared to yesterday - Lasix 40mg IVPUSH changed to OD from BID - On RA - Incentive spirometery #Neuro - Lorazepam 2mg IV Q6H PRN - Ambien 5mg PO HS PRN for insomnia - Dilaudid 8mg Q6H PO PRN and Oxycodone 30mg Q8H PO PRN for pain - Benadryl 50mg PO BID - Amytriptyline 100mg PO HS - Nasuea: Promethazine 12.5mg IV Q6H PRN and Zofran 4mg IV Q4H PRN #Ortho - Aguilar's slide procedure possibly planned today - Gabapentin 600mg PO TID #ID - Has been afebrile - Blood cx no growth, urine cx contaminated - Zosyn 3.375mg Q8H stopped after 10 days - ID on board #GI - Alk Phos 375 -> 359 -> 346 -> 307 -> 273 - Miralax 17mg BID #FEN - NPO after breakfast #DVT PE - SCDs #Dispo: - Continue ICU monitoring - Bakers slide procedure? ATTENDING PHYSICIAN STATEMENT I saw and evaluated the patient. I reviewed the resident's note and discussed the case with the resident. I agree with the resident's findings and plan as documented. SUBJECTIVE: OBJECTIVE: ASSESSMENT AND PLAN:
[2019-09-25 07:17] LABS: ALBUMIN 2.4 g/dl (3.4-5.0); BILIRUBIN,TOTAL 0.3 mg/dL (0.2-1); BLOOD UREA NITROGEN 17.1 mg/dL (7-18); CALCIUM 8.7 mg/dL (8.5-10.1); CREATININE 0.6 mg/dL (0.55-1.3); MAGNESIUM 2.3 mg/dL (1.8-2.4); PHOSPHOROUS 3.2 mg/dL (2.5-4.9); POTASSIUM 4.4 mmol/L (3.5-5.1); TOT PROT 7.3 g/dl (6.4-8.2)
[2019-09-25] MEDS: LORazepam 2 MG/ML SDV VIAL IVPUSH PRN ×3 (08:06→21:13)
[2019-09-25] MEDS: oxyCODONE HCL 5 MG TABLET PO PRN (08:23)
--- NOTE | 2019-09-25 08:50 | PN ---
Physical Exam: SUBJECTIVE: Patient seen and examined. No acute events overnight. OBJECTIVE: Vital Signs Period Temp Pulse Resp BP Sys/Gallagher Pulse Ox Last 24 Hr 97.7 F-98.6 F 71-86 11-17 94-106/48-68 97 GENERAL: NAD, A&O x3. HEAD: Normal with no signs of trauma. EYES: PERRL, extraocular movements intact ENT: Ears normal, nares patent, dry mucous membranes. NECK: Trachea midline. LUNGS: Mild bibasilar crackles, improving. No wheezes. Pt off of HFOT, now on 5L NC HEART: Regular rate and rhythm, no murmur ABDOMEN: Soft, nontender, nondistended, normoactive bowel sounds BACK: Pinpoint area of erythema on left upper back just lateral to bandage EXTREMITIES: Warm, well-perfused, no edema. Can actively move both feet L>R. NEUROLOGICAL: Normal speech. CN II-XII intact. Gait not observed. SKIN: Warm, dry, normal turgor. Laboratory Results - last 24 hr CBC, BMP 09/25/19 05:30 09/25/19 05:30 Active Medications Acetaminophen (Ofirmev Injection -) 1,000 mg IVPB ONCE ONE Stop: 09/25/19 09:31 Amitriptyline HCl (Elavil -) 100 mg PO HS [facility] Last Admin: 09/24/19 21:14 Dose: 100 mg Benzocaine/Menthol (Cepacol Lozenge -) 1 each MM PRN PRN PRN Reason: SORE THROAT Last Admin: 09/17/19 17:36 Dose: 1 each Cyclobenzaprine HCl (Flexeril -) 10 mg PO BID [facility] Last Admin: 09/24/19 21:13 Dose: 10 mg Dexamethasone Sodium Phosphate (Decadron Injection -) 4 mg IVPUSH ONCE PRN PRN Reason: NAUSEA AND/OR VOMITING Diphenhydramine HCl (Benadryl -) 50 mg PO BID [facility] Last Admin: 09/24/19 21:13 Dose: 50 mg Furosemide (Lasix Injection -) 40 mg IVPUSH BID [facility] Last Admin: 09/24/19 21:13 Dose: 40 mg Gabapentin (Neurontin -) 600 mg PO TID [facility] Last Admin: 09/25/19 06:19 Dose: 600 mg Piperacillin Sod/Tazobactam (Sod 3.375 gm/ Dextrose) 50 mls @ 100 mls/hr IVPB Q8H-IV ARNIE; Protocol Last Admin: 09/25/19 01:46 Dose: 100 mls/hr Lorazepam (Ativan Injection -) 2 mg IVPUSH TID PRN PRN Reason: ANXIETY Last Admin: 09/25/19 08:06 Dose: 2 mg Melatonin (Melatonin) 10 mg PO HS PRN PRN Reason: INSOMNIA Last Admin: 09/22/19 21:09 Dose: 10 mg Miscellaneous (Duragesic Patch Waste) 1 each TD PRN PRN PRN Reason: PAIN Mupirocin (Bactroban 2% Ointment -) 1 applic TP BID ARNIE Last Admin: 09/24/19 21:51 Dose: 1 applic Ondansetron HCl (Zofran Injection) 4 mg IVPUSH Q6H PRN PRN Reason: NAUSEA AND/OR VOMITING Last Admin: 09/20/19 23:18 Dose: 4 mg Ondansetron HCl (Zofran Injection) 4 mg IVPUSH Q4H PRN PRN Reason: NAUSEA AND/OR VOMITING Oxycodone HCl (Roxicodone -) 30 mg PO Q8H PRN PRN Reason: PAIN LEVEL 7 - 10 Last Admin: 09/25/19 08:23 Dose: 30 mg Polyethylene Glycol (Miralax (For Daily Use) -) 17 gm PO BID [facility] Last Admin: 09/24/19 21:51 Dose: Not Given Promethazine HCl (Phenergan Injection -) 12.5 mg IVPB Q6H PRN PRN Reason: NAUSEA AND/OR VOMITING Zolpidem Tartrate (Ambien -) 5 mg PO HS PRN PRN Reason: INSOMNIA Last Admin: 09/24/19 23:06 Dose: 5 mg ASSESSMENT/PLAN: Ms. Tafoya is a 59y/o female with multiple (~30) back and spine surgeries, complex global myofascial pain syndrome, recurrent spinal stenosis, multiple sclerosis, and mechanical thoracolumbar instability who presents for spinal surgery. #ARDS likely 2/2 pneumonia CTA (09/18): Thickening of interstitial septi and diffuse groundglass opacities with pleural effusions suggesting ARDS CXR (09/23): normal aeration L lung, improving R lung. F/u daily CXR for progress Zosyn 3.375gm Q8H per ID (Dr. Bennett) on Day 9 F/u blood, urine, and sputum cx, no growth. Cont Lasix to 40mg BID Weaned off of HFOT to 5L NC --> 3.5L NC, tolerating well Incentive spirometry #Complex spinal pain 2/2 mechanical instability and myofascial decompensation s/ p multi-level spinal intervention, POD 7. Planned achilles lengthening procedure with ortho (Shein), delayed due to HFOT and pyrexia. Pt now stable on NC, planned OR today Defer pain control to anesthesiology: Gabapentin 600mg TID Lorazepam 2mg IV Q6H PRN Ambien 5mg PO HS PRN for insomnia Dilaudid 8mg Q6H PO PRN and Oxycodone 30mg Q8H PO PRN for pain Benadryl 50mg PO BID Amytriptyline 100mg PO HS PT eval daily. No bending, lifting (>5 lbs), or twisting for 9-12 months, f/ u 7-10 days after rehab d/c #Normocytic anemia Hgb: 10.1, stabilized FOBT: negative Hold off on units for now Cont to monitor closely #Hypomagnesemia M.0 today Cont to monitor daily #DVT ppx SCDs #FEN Monitor Mg and Hb Diet as per surgery post-op #Dispo: Monitor in ICU SNF Visit type - Emergency Visit Emergency Visit: No - New Patient This patient is new to me today: No - Critical Care Critical Care patient: Yes Total Critical Care Time (in minutes): 35 Critical Care Statement: The care of this patient involved high complexity decision making to prevent further life threatening deterioration of the patient 's condition and/or to evaluate & treat vital organ system(s) failure or risk of failure. ATTENDING PHYSICIAN STATEMENT I saw and evaluated the patient. I reviewed the resident's note and discussed the case with the resident. I agree with the resident's findings and plan as documented. SUBJECTIVE: OBJECTIVE: ASSESSMENT AND PLAN:
--- NOTE | 2019-09-25 09:15 | PN ---
Progress Note (short form) - Note Progress Note: Neurology HISTORY OF PRESENT ILLNESS: 59 y/o female with hx of multiple (~30) back and spine surgeries, complex global myofascial pain syndrome, recurrent spinal stenosis, multiple sclerosis, mechanical thoracolumbar instability, admitted for surgical intervention and per notes completed: 1) inspection fusion mass (c-spine), 2) T1-3 laminectomies, 3) C7-T4 in situ fusion, 4) Inspection fusion mass (thoracolumbar spine), 5) posterior instrumentation T8-S1, 6) posteroir arthrodesis T8-S1, 7) bone allograft, 8) bone autograft, 9) complex wound closure (60cm). 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 Complaints of pain and pain mgmt has been consulted. Extensive conversation regarding her MS history which dates back to >10 years and reports previously on BetaSeron but felt no difference. States last MRI brain was 1 year ago, offered repeat which patient would like to defer and reports prior imaging stable and states she will not be able to stay flat and tolerate procedure. She does not want to start on MS meds and would like to focus on spinal mgmt at this time. As outpatient, would advise MRI brain with and without contrast to start with. Was being plaaned for ruff slide bilterally for feet but with temperature spikes. This morning respiration seem to be normalized andjust using nasal cannula as opposed to face mask that she was requiring yesterday. No longer tachycardic also slightly hypotensive which she reports is her baseline blood pressure. Unclear of whether procedure will be completed but patient does appear to have spin stabilized in terms her respiratory status. Patient reported RLE muscle spasms, requested Flexiril. Added to regiment, no mental status change. Leukocytosis improved. Discussed with nurse and possibly for procedure this evening, depending on orthopedist and patient's infectious status. Patient eager to have procedure completed. Will likely require rehabilitation placement once medically stabilized. We'll have to reevaluate ambulation status at that point. Active Medications Acetaminophen (Ofirmev Injection -) 1,000 mg IVPB ONCE ONE Stop: 09/25/19 09:31 Amitriptyline HCl (Elavil -) 100 mg PO HS [facility] Last Admin: 09/24/19 21:14 Dose: 100 mg Benzocaine/Menthol (Cepacol Lozenge -) 1 each MM PRN PRN PRN Reason: SORE THROAT Last Admin: 09/17/19 17:36 Dose: 1 each Cyclobenzaprine HCl (Flexeril -) 10 mg PO BID [facility] Last Admin: 09/24/19 21:13 Dose: 10 mg Dexamethasone Sodium Phosphate (Decadron Injection -) 4 mg IVPUSH ONCE PRN PRN Reason: NAUSEA AND/OR VOMITING Diphenhydramine HCl (Benadryl -) 50 mg PO BID [facility] Last Admin: 09/24/19 21:13 Dose: 50 mg Furosemide (Lasix Injection -) 40 mg IVPUSH BID [facility] Last Admin: 09/24/19 21:13 Dose: 40 mg Gabapentin (Neurontin -) 600 mg PO TID [facility] Last Admin: 09/25/19 06:19 Dose: 600 mg Piperacillin Sod/Tazobactam (Sod 3.375 gm/ Dextrose) 50 mls @ 100 mls/hr IVPB Q8H-IV [facility]; Protocol Last Admin: 09/25/19 01:46 Dose: 100 mls/hr Lorazepam (Ativan Injection -) 2 mg IVPUSH TID PRN PRN Reason: ANXIETY Last Admin: 09/25/19 08:06 Dose: 2 mg Melatonin (Melatonin) 10 mg PO HS PRN PRN Reason: INSOMNIA Last Admin: 09/22/19 21:09 Dose: 10 mg Miscellaneous (Duragesic Patch Waste) 1 each TD PRN PRN PRN Reason: PAIN Mupirocin (Bactroban 2% Ointment -) 1 applic TP BID [facility] Last Admin: 09/24/19 21:51 Dose: 1 applic Ondansetron HCl (Zofran Injection) 4 mg IVPUSH Q6H PRN PRN Reason: NAUSEA AND/OR VOMITING Last Admin: 09/20/19 23:18 Dose: 4 mg Ondansetron HCl (Zofran Injection) 4 mg IVPUSH Q4H PRN PRN Reason: NAUSEA AND/OR VOMITING Oxycodone HCl (Roxicodone -) 30 mg PO Q8H PRN PRN Reason: PAIN LEVEL 7 - 10 Last Admin: 09/25/19 08:23 Dose: 30 mg Polyethylene Glycol (Miralax (For Daily Use) -) 17 gm PO BID [facility] Last Admin: 09/24/19 21:51 Dose: Not Given Promethazine HCl (Phenergan Injection -) 12.5 mg IVPB Q6H PRN PRN Reason: NAUSEA AND/OR VOMITING Zolpidem Tartrate (Ambien -) 5 mg PO HS PRN PRN Reason: INSOMNIA Last Admin: 09/24/19 23:06 Dose: 5 mg PHYSICAL EXAMINATION Vital Signs Period Temp Pulse Resp BP Sys/Gallagher Pulse Ox Last 24 Hr 97.7 F-98.6 F 71-86 11-17 94-106/48-68 97-98 GENERAL: Awake, alert, and fully oriented, in no acute distress. HEAD: Normal with no signs of trauma. EYES: Pupils equal, round and reactive to light, extraocular movements intact, sclera anicteric, conjunctiva clear. No lid lag. EARS, NOSE, THROAT: Ears normal, nares patent, oropharynx clear without exudates. Moist mucous membranes. NECK: Normal range of motion, supple without lymphadenopathy, JVD, or masses. LUNGS: Breath sounds equal, clear to auscultation bilaterally. No wheezes, and no crackles. No accessory muscle use. HEART: Regular rate and rhythm, normal S1 and S2 without murmur, rub or gallop. ABDOMEN: Soft, nontender, not distended, normoactive bowel sounds, no guarding, no rebound, no masses. No hepatomegaly or splenomegaly. MUSCULOSKELETAL: Normal range of motion at all joints. No bony deformities or tenderness. No CVA tenderness. UPPER EXTREMITIES: 2+ pulses, warm, well-perfused. No cyanosis. No clubbing. Cap refill <2 seconds. No peripheral edema. LOWER EXTREMITIES: 2+ pulses, warm, well-perfused. No calf tenderness. No peripheral edema. NEUROLOGICAL: Cranial nerves II-XII intact. Normal speech. Normal gait. PSYCHIATRIC: Cooperative. Good eye contact. Appropriate mood and affect. SKIN: Warm, dry, normal turgor, no rashes or lesions noted. 2 CBCD WBC 8.4 K/mm3 (4.0-10.0) 09/25/19 05:30 RBC 3.46 M/mm3 (3.60-5.2) L 09/25/19 05:30 Hgb 10.4 GM/dL (10.7-15.3) L 09/25/19 05:30 Hct 31.2 % (32.4-45.2) L 09/25/19 05:30 MCV 90.1 fl (80-96) 09/25/19 05:30 MCHC 33.3 g/dl (32.0-36.0) 09/25/19 05:30 RDW 14.6 % (11.6-15.6) 09/25/19 05:30 Plt Count 778 K/MM3 (134-434) H 09/25/19 05:30 MPV 7.4 fl (7.5-11.1) L 09/25/19 05:30 CMP Sodium 137 mmol/L (136-145) 09/25/19 05:30 Potassium 4.4 mmol/L (3.5-5.1) 09/25/19 05:30 Chloride 97 mmol/L (98-107) L 09/25/19 05:30 Carbon Dioxide 33 mmol/L (21-32) H 09/25/19 05:30 Anion Gap 7 MMOL/L (8-16) L 09/25/19 05:30 BUN 17.1 mg/dL (7-18) 09/25/19 05:30 Creatinine 0.6 mg/dL (0.55-1.3) 09/25/19 05:30 Random Glucose 101 mg/dL (74-106) 09/25/19 05:30 Calcium 8.7 mg/dL (8.5-10.1) 09/25/19 05:30 Total Bilirubin 0.3 mg/dL (0.2-1) 09/25/19 05:30 AST 28 U/L (15-37) 09/25/19 05:30 ALT 30 U/L (13-61) 09/25/19 05:30 Alkaline Phosphatase 248 U/L (45-117) H 09/25/19 05:30 Total Protein 7.3 g/dl (6.4-8.2) 09/25/19 05:30 Albumin 2.4 g/dl (3.4-5.0) L 09/25/19 05:30 ASSESSMENT/PLAN: 59 y/o female with hx of multiple (~30) back and spine surgeries, complex global myofascial pain syndrome, recurrent spinal stenosis, multiple sclerosis, mechanical thoracolumbar instability, POD #0 s/p 1) inspection fusion mass (c- spine), 2) T1-3 laminectomies, 3) C7-T4 in situ fusion, 4) Inspection fusion mass (thoracolumbar spine), 5) posterior instrumentation T8-S1, 6) posteroir arthrodesis T8-S1, 7) bone allograft, 8) bone autograft, 9) complex wound closure (60cm). 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 Complaints of pain and pain mgmt has been consulted. Extensive conversation regarding her MS history which dates back to > 10 years and reports previously on BetaSeron but felt no difference. States last MRI brain was 1 year ago, offered repeat which patient would like to defer and reports prior imaging stable and states she will not be able to stay flat and tolerate procedure. She does not want to start on MS meds and would like to focus on spinal mgmt at this time. As outpatient, would advise MRI brain with and without contrast to start with. Was being plaaned for ruff slide bilterally for feet but with temperature spikes. This morning respiration seem to be normalized andjust using nasal cannula as opposed to face mask that she was requiring yesterday. No longer tachycardic also slightly hypotensive which she reports is her baseline blood pressure. Unclear of whether procedure will be completed but patient does appear to have spin stabilized in terms her respiratory status. Patient reported RLE muscle spasms, requested Flexiril. Added to regiment, no mental status change. Reported spasms improved. Informed hospitalist that if any issues with the medication can be d/donna. Ortho following and managing regiment. Continue orthopedic follow-up, caution with pain medications, continue monitor respiratory optimization. Leukocytosis improved. Discussed with nurse and possibly for procedure this evening, depending on orthopedist and patient's infectious status. Patient eager to have procedure completed. Will likely require rehabilitation placement once medically stabilized. We'll have to reevaluate ambulation status at that point. Critical care time 35 mins.
[2019-09-25] MEDS ORDERED: ACETAMINOPHEN 1000 MG/100 ML VIAL (NON FORMULARY) IVPB ONE (09:30)
[2019-09-25] MEDS: ONDANSETRON 4 MG/2 ML VIAL IVPUSH PRN (10:44)
[2019-09-25] MEDS: CYCLOBENZAPRINE HCL 10 MG TABLET (FP) PO SCH ×2 (10:53→21:15)
[2019-09-25] MEDS: diphenhydrAMINE HCL 25 MG CAPSULE (FP) PO SCH ×2 (10:53→21:14)
[2019-09-25] MEDS: POLYETHYLENE GLYCOL 3350 119 GM BTL PO SCH ×2 (10:54→21:15)
[2019-09-25] MEDS: FUROSEMIDE 40 MG/4 ML INJECTABLE VIAL IVPUSH SCH ×2 (10:54→21:15)
[2019-09-25] MEDS: MUPIROCIN 2% TOPICAL OINTMENT 22 GM TUBE TP SCH ×2 (11:00→21:15)
--- NOTE | 2019-09-25 11:55 | PN ---
Teaching Attending Note Name of Resident: Lucas Vasques ATTENDING PHYSICIAN STATEMENT I saw and evaluated the patient. I reviewed the resident's note and discussed the case with the resident. I agree with the resident's findings and plan as documented. SUBJECTIVE: Pt seen and examined in the ICU. Breathing continues to improve. Saturating well on nasal cannula. No fevers. OBJECTIVE: Vital Signs Period Temp Pulse Resp BP Sys/Gallagher Pulse Ox Last 24 Hr 97.7 F-98.6 F 71-86 11-17 94-106/48-82 97-98 Intake & Output 09/22/19 09/23/19 09/24/19 09/25/19 23:59 23:59 23:59 23:59 Intake Total 730 150 720 150 Output Total 2400 3200 2800 600 Balance -1670 -3050 -2080 -450 Weight 100.698 kg 100.698 kg 100.743 kg 100.289 kg Gen: NAD at rest Heart: RRR Lung: decreased breath sounds at the bases Abd: soft, nontender Ext: no edema CBC, BMP 09/25/19 05:30 09/25/19 05:30 Active Medications Amitriptyline HCl (Elavil -) 100 mg PO HS [facility] Last Admin: 09/24/19 21:14 Dose: 100 mg Benzocaine/Menthol (Cepacol Lozenge -) 1 each MM PRN PRN PRN Reason: SORE THROAT Last Admin: 09/17/19 17:36 Dose: 1 each Cyclobenzaprine HCl (Flexeril -) 10 mg PO BID [facility] Last Admin: 09/25/19 10:53 Dose: 10 mg Dexamethasone Sodium Phosphate (Decadron Injection -) 4 mg IVPUSH ONCE PRN PRN Reason: NAUSEA AND/OR VOMITING Diphenhydramine HCl (Benadryl -) 50 mg PO BID [facility] Last Admin: 09/25/19 10:53 Dose: 50 mg Furosemide (Lasix Injection -) 40 mg IVPUSH BID [facility] Last Admin: 09/25/19 10:54 Dose: 40 mg Gabapentin (Neurontin -) 600 mg PO TID [facility] Last Admin: 09/25/19 06:19 Dose: 600 mg Hydromorphone HCl (Dilaudid -) 8 mg PO Q6H PRN PRN Reason: PAIN 7 - 10; IF OXY NOT WORK Piperacillin Sod/Tazobactam (Sod 3.375 gm/ Dextrose) 50 mls @ 100 mls/hr IVPB Q8H-IV [facility]; Protocol Last Admin: 09/25/19 10:54 Dose: 100 mls/hr Lorazepam (Ativan Injection -) 2 mg IVPUSH Q6H PRN PRN Reason: ANXIETY Melatonin (Melatonin) 10 mg PO HS PRN PRN Reason: INSOMNIA Last Admin: 09/22/19 21:09 Dose: 10 mg Miscellaneous (Duragesic Patch Waste) 1 each TD PRN PRN PRN Reason: PAIN Mupirocin (Bactroban 2% Ointment -) 1 applic TP BID [facility] Last Admin: 09/25/19 11:00 Dose: 1 applic Ondansetron HCl (Zofran Injection) 4 mg IVPUSH Q6H PRN PRN Reason: NAUSEA AND/OR VOMITING Last Admin: 09/25/19 10:44 Dose: 4 mg Ondansetron HCl (Zofran Injection) 4 mg IVPUSH Q4H PRN PRN Reason: NAUSEA AND/OR VOMITING Oxycodone HCl (Roxicodone -) 30 mg PO Q8H PRN PRN Reason: PAIN LEVEL 7 - 10 Last Admin: 09/25/19 08:23 Dose: 30 mg Polyethylene Glycol (Miralax (For Daily Use) -) 17 gm PO BID [facility] Last Admin: 09/25/19 10:54 Dose: Not Given Promethazine HCl (Phenergan Injection -) 12.5 mg IVPB Q6H PRN PRN Reason: NAUSEA AND/OR VOMITING Zolpidem Tartrate (Ambien -) 5 mg PO HS PRN PRN Reason: INSOMNIA Last Admin: 09/24/19 23:06 Dose: 5 mg ASSESSMENT AND PLAN: Progressive Kyphoscoliosis s/p T1-T3 Laminectomies/C7-T4 Fusion/T8-S1 Posterior Instrumentation/Arthrodesis Anemia Acute Hypoxic Respiratory Failure Volume Overload Pleural Effusions r/o Pneumonia - continue antibiotics - O2 to keep SpO2 >90% - continue lasix - monitor urine output, creatinine - keep net negative - pain control - incentive spirometry - PO as tolerated - antiemetics - activity/diet/DVT prophylaxis per surgery - continue ICU monitoring
--- NOTE | 2019-09-25 14:39 | PN ---
Teaching Attending Note Name of Resident: Chanda Graham ATTENDING PHYSICIAN STATEMENT I saw and evaluated the patient. I reviewed the resident's note and discussed the case with the resident. I agree with the resident's findings and plan as documented. SUBJECTIVE: Awake, alert, responsive, more upbeat and hopeful this AM. Lethargy and agitation resolved. OBJECTIVE: Fever resolved. Hemodynamically Stable. AAO x 3. Weaned of high flow O2 with SpO2 98% on 3L via NC. Last Vital Signs Temp Pulse Resp BP Pulse Ox 98.1 F 68 12 96/41 L 98 09/25/19 10:00 09/25/19 14:00 09/25/19 14:00 09/25/19 14:00 09/25/19 09:08 Heart - S1, S2, RRR Lungs - decreased air entry at bases. Abdomen - Soft, non-tender. Bowel Sounds normal. Extremities - mild edema, no calf tenderness. RLE paresis, altered sensation ( chronic) Laboratory Results - last 24 hr 09/25/19 09/25/19 09/25/19 05:30 05:30 05:30 WBC 8.4 RBC 3.46 L Hgb 10.4 L Hct 31.2 L MCV 90.1 MCH 30.0 MCHC 33.3 RDW 14.6 Plt Count 778 H MPV 7.4 L PT with INR 13.70 H INR 1.16 H Sodium 137 Potassium 4.4 Chloride 97 L Carbon Dioxide 33 H Anion Gap 7 L BUN 17.1 Creatinine 0.6 Est GFR (CKD-EPI)AfAm 117.27 Est GFR (CKD-EPI)NonAf 101.18 Random Glucose 101 Calcium 8.7 Phosphorus 3.2 Magnesium 2.3 Total Bilirubin 0.3 AST 28 ALT 30 Alkaline Phosphatase 248 H Total Protein 7.3 Albumin 2.4 L Blood Type Antibody Screen 09/25/19 05:30 WBC RBC Hgb Hct MCV MCH MCHC RDW Plt Count MPV PT with INR INR Sodium Potassium Chloride Carbon Dioxide Anion Gap BUN Creatinine Est GFR (CKD-EPI)AfAm Est GFR (CKD-EPI)NonAf Random Glucose Calcium Phosphorus Magnesium Total Bilirubin AST ALT Alkaline Phosphatase Total Protein Albumin Blood Type A POSITIVE Antibody Screen Negative Current Medications Generic Name Dose Route Start Last Admin Trade Name Freq PRN Reason Stop Dose Admin Amitriptyline HCl 100 mg 09/10/19 16:26 09/24/19 21:14 Elavil - PO 100 mg HS [facility] Administration Benzocaine/Menthol 1 each 09/17/19 12:19 09/17/19 17:36 Cepacol Lozenge - MM 1 each PRN PRN Administration SORE THROAT Cyclobenzaprine HCl 10 mg 09/21/19 12:45 09/25/19 10:53 Flexeril - PO 10 mg BID [facility] Administration Dexamethasone Sodium Phosphate 4 mg 09/11/19 18:40 Decadron Injection - IVPUSH ONCE PRN NAUSEA AND/OR VOMITING Diphenhydramine HCl 50 mg 09/15/19 10:00 09/25/19 10:53 Benadryl - PO 50 mg BID [facility] Administration Furosemide 40 mg 09/23/19 11:15 09/25/19 10:54 Lasix Injection - IVPUSH 40 mg BID [facility] Administration Gabapentin 600 mg 09/13/19 14:00 09/25/19 06:19 Neurontin - PO 600 mg TID [facility] Administration Hydromorphone HCl 8 mg 09/25/19 10:40 Dilaudid - PO Q6H PRN PAIN 7 - 10; IF OXY NOT WORK Piperacillin Sod/Tazobactam 50 mls @ 100 mls/hr 09/18/19 18:00 09/25/19 10:54 Sod 3.375 gm/ Dextrose IVPB 100 mls/hr Q8H-IV [facility] Administration Protocol Lorazepam 2 mg 09/25/19 10:54 Ativan Injection - IVPUSH Q6H PRN ANXIETY Melatonin 10 mg 09/19/19 19:22 09/22/19 21:09 Melatonin PO 10 mg HS PRN Administration INSOMNIA Miscellaneous 1 each 09/21/19 22:19 Duragesic Patch Waste TD PRN PRN PAIN Mupirocin 1 applic 09/15/19 10:45 09/25/19 11:00 Bactroban 2% Ointment - TP 1 applic BID [facility] Administration Ondansetron HCl 4 mg 09/09/19 16:47 09/25/19 10:44 Zofran Injection IVPUSH 4 mg Q6H PRN Administration NAUSEA AND/OR VOMITING Ondansetron HCl 4 mg 09/11/19 18:40 Zofran Injection IVPUSH Q4H PRN NAUSEA AND/OR VOMITING Oxycodone HCl 30 mg 09/22/19 10:32 09/25/19 08:23 Roxicodone - PO 30 mg Q8H PRN Administration PAIN LEVEL 7 - 10 Polyethylene Glycol 17 gm 09/17/19 22:00 09/25/19 10:54 Miralax (For Daily Use) - PO Not Given BID [facility] Promethazine HCl 12.5 mg 09/11/19 18:43 Phenergan Injection - IVPB Q6H PRN NAUSEA AND/OR VOMITING Zolpidem Tartrate 5 mg 09/23/19 19:29 09/24/19 23:06 Ambien - PO 5 mg HS PRN Administration INSOMNIA Home Medications Medication Instructions Recorded Amitriptyline HCl [Elavil -] 50 mg PO HS 01/16/19 Oxycodone HCl 60 mg PO Q8H 01/16/19 HYDROmorphone [Dilaudid -] 8 mg PO Q6H PRN 03/04/19 Cyclobenzaprine HCl 1 tab PO TID 03/05/19 LORazepam [Ativan] 2 mg PO TID tablet MDD 6mg 03/11/19 Amitriptyline HCl 100 mg PO TID 09/06/19 Alprazolam [Xanax] 0.5 mg PO BID 09/12/19 Fluoxetine HCl 10 mg PO BID 09/12/19 Prednisone 5 mg PO QID 09/12/19 ASSESSMENT AND PLAN: 59 year old female with history of MS, recurrent lumbar spinal stenosis, s/p multiple back surgeries, complex global myofascial pain syndrome, mechanical thoracolumbar instability, admitted for spine surgery. POD 16 s/p 1. Inspection fusion mass (cervical spine). 2. T1, T2, T3 laminectomies. 3. C7 -T4 in situ fusion. 4. Inspection fusion mass (thoracolumbar spine). 5. Posterior instrumentation T8-S1. 6. Posterior arthrodesis T8-S1. 7. Bone allograft. 8. Bone autograft. 9. Complex wound closure 1. 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 Dilaudid PRN for pain management. Continue Dilaudid prn, Elavil, Neurontin, Ativan Deferral of Bilateral Achilles tendon lengthening/release due to fever, mental status change and hypoxic resp failure - now rescheduled for today. Further management as per Ortho. 2. Acute Hypoxic respiratory failure and Sepsis secondary to Pneumonia, fluid overload, ARDS Weaned off high flow, now on 3L via NC. Clinically improving. Fever resolved. CTA Chest neg for PE but shows bilateral interstitial infiltrates + fluid ? Pneumonia +/- ARDS Responding to IV lasix. Repeat CXR shows improved aeration. Blood Cx neg. Urine Cx contaminated. Continue IV Zosyn for HCAP (Day 9). Further Abx therapy as per ID Monitor respiratory status. 3. Acute Metabolic Encephalopathy secondary to Hypoxia + Sepsis - resolved. AAO x 3, agitation/confusion resolved. Now depressed and intermittently tearful and frustrated due to Surgery. Resumed on Ativan, which patient takes chronically for anxiety. 4. Anemia - normocytic s/p spinal surgery. No evidence of ongoing blood loss Will monitor H/H and transfuse if necessary. 5. Hypokalemia - resolved s/p repletion. DVT Px - SCDs
[2019-09-25] MEDS: ACETAMINOPHEN 1000 MG/100 ML VIAL (NON FORMULARY) IVPB PRN (17:34)
--- NOTE | 2019-09-25 18:31 | PN ---
Progress Note (short form) - Note Progress Note: In ICU PLanned TA lengthening postponed due to Respiratory challenges ie ARDS Still has paresis R>L Has not gotten out of bed as yet Difficulty getting her in and out of bed Review for tomorrow NPO after breakfast
[2019-09-25] MEDS ORDERED: HYDROmorphone HCl 2 MG/ML VIAL IVPB ONE (19:53)
[2019-09-25] MEDS ORDERED: PT OWN MED DRAWER 7, Y5N ONE (21:07)
[2019-09-25] MEDS: ZOLPIDEM TARTRATE 5 MG TABLET PO PRN (21:15)
[2019-09-25] MEDS: AMITRIPTYLINE HCL 25 MG TABLET (FP) PO SCH (21:15)
[2019-09-26] MEDS ORDERED: DEXTROSE 5%-WATER - 50 ML IVPB ONE (02:12)
[2019-09-26] MEDS ORDERED: PIPERACILLIN/TAZOBACTAM 3.375 GM VIAL IVPB ONE ×2 (02:12→09:26)
[2019-09-26] MEDS: PIPERACILLIN/TAZOB 3.375 GM 3.375 GM in DEXTROSE 5%-WATER - 50 ML IVPB SCH ×2 (02:18→10:08)
[2019-09-26] MEDS: oxyCODONE HCL 5 MG TABLET PO PRN ×3 (04:57→21:08)
[2019-09-26] MEDS: LORazepam 2 MG/ML SDV VIAL IVPUSH PRN ×3 (05:03→18:19)
[2019-09-26] MEDS: GABAPENTIN 300 MG CAPSULE (FP) PO SCH ×3 (06:25→21:12)
[2019-09-26 06:55] LABS: BASO % 0.7 % (0-2.0); EOS % 10.1 % (0-4.5); HEMATOCRIT 30.2 % (32.4-45.2); LYMPH % 27.2 % (8-40); MCH 29.9 pg (25.7-33.7); MCHC 33.2 g/dl (32.0-36.0); MEAN PLT VOLUME 7.5 fl (7.5-11.1); MONO % 5.7 % (3.8-10.2); NEUT % 56.3 % (42.8-82.8); PLATELET COUNT 781 K/MM3 (134-434); RBC 3.36 M/mm3 (3.60-5.2); RDW 14.4 % (11.6-15.6); WHITE BLOOD COUNT 8.1 K/mm3 (4.0-10.0)
[2019-09-26 07:17] LABS: ALBUMIN 2.5 g/dl (3.4-5.0); BILIRUBIN,TOTAL 0.3 mg/dL (0.2-1); CREATININE 0.6 mg/dL (0.55-1.3); TOT PROT 7.5 g/dl (6.4-8.2)
--- NOTE | 2019-09-26 08:52 | PN ---
Physical Exam: SUBJECTIVE: Patient seen and examined. No acute events overnight. Still complains of R shoulder and leg pain. Denies SOB. OBJECTIVE: Vital Signs Period Temp Pulse Resp BP Sys/Gallagher Pulse Ox Last 24 Hr 98.1 F-98.2 F 68-80 09-12 83-101/41-82 88-100 GENERAL: Lying sideways in bed in mild pain LUNGS: Breath sounds equal, clear to auscultation bilaterally, no wheezes, no crackles, no accessory muscle use. HEART: Regular rate and rhythm, S1, S2 without murmur, rub or gallop. ABDOMEN: Soft, nontender, nondistended, normoactive bowel sounds, no guarding, no rebound, no hepatosplenomegaly, no masses. EXTREMITIES: warm, well-perfused, no edema NEUROLOGICAL: AOx3, fully oriented, normal speech Laboratory Results - last 24 hr 09/26/19 09/26/19 06:00 06:00 WBC 8.1 RBC 3.36 L Hgb 10.0 L Hct 30.2 L MCV 90.0 MCH 29.9 MCHC 33.2 RDW 14.4 Plt Count 781 H MPV 7.5 Absolute Neuts (auto) 4.6 Neutrophils % 56.3 Lymphocytes % 27.2 Monocytes % 5.7 Eosinophils % 10.1 H Basophils % 0.7 Nucleated RBC % 0 Sodium 137 Potassium 4.0 Chloride 96 L Carbon Dioxide 37 H Anion Gap 3 L BUN 24.0 H Creatinine 0.6 Est GFR (CKD-EPI)AfAm 117.27 Est GFR (CKD-EPI)NonAf 101.18 Random Glucose 92 Calcium 9.0 Total Bilirubin 0.3 AST 21 ALT 27 Alkaline Phosphatase 227 H Total Protein 7.5 Albumin 2.5 L Active Medications Generic Name Dose Route Start Last Admin Trade Name Freq PRN Reason Stop Dose Admin Acetaminophen 1,000 mg 09/25/19 17:16 09/25/19 17:34 Ofirmev Injection - IVPB 1,000 mg Q6H PRN Administration PAIN LEVEL 7 - 10 Amitriptyline HCl 100 mg 09/10/19 16:26 09/25/19 21:15 Elavil - PO 100 mg HS ARNIE Administration Benzocaine/Menthol 1 each 09/17/19 12:19 09/17/19 17:36 Cepacol Lozenge - MM 1 each PRN PRN Administration SORE THROAT Cyclobenzaprine HCl 10 mg 09/21/19 12:45 09/25/19 21:15 Flexeril - PO 10 mg BID ARNIE Administration Dexamethasone Sodium Phosphate 4 mg 09/11/19 18:40 Decadron Injection - IVPUSH ONCE PRN NAUSEA AND/OR VOMITING Diphenhydramine HCl 50 mg 09/15/19 10:00 09/25/19 21:14 Benadryl - PO 50 mg BID ARNIE Administration Furosemide 40 mg 09/23/19 11:15 09/25/19 21:15 Lasix Injection - IVPUSH 40 mg BID ARNIE Administration Gabapentin 600 mg 09/13/19 14:00 09/26/19 06:25 Neurontin - PO 600 mg TID ARNIE Administration Hydromorphone HCl 8 mg 09/25/19 10:40 09/26/19 02:18 Dilaudid - PO 8 mg Q6H PRN Administration PAIN 7 - 10; IF OXY NOT WORK Piperacillin Sod/Tazobactam 50 mls @ 100 mls/hr 09/18/19 18:00 09/26/19 02:18 Sod 3.375 gm/ Dextrose IVPB 100 mls/hr Q8H-IV [facility]IE Administration Protocol Lorazepam 2 mg 09/25/19 10:54 09/26/19 05:03 Ativan Injection - IVPUSH 2 mg Q6H PRN Administration ANXIETY Melatonin 10 mg 09/19/19 19:22 09/22/19 21:09 Melatonin PO 10 mg HS PRN Administration INSOMNIA Miscellaneous 1 each 09/21/19 22:19 Duragesic Patch Waste TD PRN PRN PAIN Mupirocin 1 applic 09/15/19 10:45 09/25/19 21:15 Bactroban 2% Ointment - TP 1 applic BID ARNIE Administration Ondansetron HCl 4 mg 09/09/19 16:47 09/25/19 10:44 Zofran Injection IVPUSH 4 mg Q6H PRN Administration NAUSEA AND/OR VOMITING Ondansetron HCl 4 mg 09/11/19 18:40 Zofran Injection IVPUSH Q4H PRN NAUSEA AND/OR VOMITING Oxycodone HCl 30 mg 09/22/19 10:32 09/26/19 04:57 Roxicodone - PO 30 mg Q8H PRN Administration PAIN LEVEL 7 - 10 Polyethylene Glycol 17 gm 09/17/19 22:00 09/25/19 21:15 Miralax (For Daily Use) - PO Not Given BID ARNIE Promethazine HCl 12.5 mg 09/11/19 18:43 Phenergan Injection - IVPB Q6H PRN NAUSEA AND/OR VOMITING Zolpidem Tartrate 5 mg 09/23/19 19:29 09/25/19 21:15 Ambien - PO 5 mg HS PRN Administration INSOMNIA ASSESSMENT/PLAN: This is a 59 YO F with PMH significant for MS, recurrent spinal stenosis, multiple spinal surgeries. POD #15 for posterior thoracic decompression, cervicothoracic in situ fusion, and revision thoracolumbar instrumented fusion. Waiting for Bakers Slide procedure #Respiratory - ARDS - anesthesia delayed surgery yesterday d/t supplemental O2 - off supplemental O2, breathing RA, O2sat wnl - CXR 09/26: unchanged, mild R lung infiltrates - changed Lasix 40mg IV to once daily - Incentive spirometery #Neuro - pain, hx MS - Lorazepam 2mg IV Q6H PRN, Dilaudid 8mg Q6H PO PRN, Oxycodone 30mg Q8H PO PRN for pain, Benadryl 50mg PO BID, Amytriptyline 100mg PO HS, Ofirmev, Flexeril - melatonin for insomnia - Nausea: Promethazine 12.5mg IV Q6H PRN and Zofran 4mg IV Q4H PRN - outatient MRI brain for MS tacoal per neuro - appreciate neuro recs # Cards - hypotension - LIJ placed 09/19 for hypotension, poor venous access - persistently hypotensive d/t fluid removal - BP monitoring, maintain MAP >65 #Ortho - Aguilar's slide procedure not scheduled today per Dr Marina - Gabapentin 600mg PO TID #ID - afebrile, normal WBC - Blood cx no growth, urine cx contaminated - stopped Zosyn 3.375mg Q8H day 10 for UTI - ID on board #Heme - anemia - Hgb 10.4 to 10.0 - thrombocytosis plt 781 #GI - elevated Alk Phos 227 - Miralax 17mg BID - cholesterol/Na diet, NPO after breakfast tomorrow for potential procedure #FEN - no fluids - hypoCl - PO # PPX - SCDs - no GI ppx #Dispo: - transfer to tele Visit type - Emergency Visit Emergency Visit: Yes ED Registration Date: 09/09/19 Care time: The patient presented to the Emergency Department on the above date and was hospitalized for further evaluation of their emergent condition. - New Patient This patient is new to me today: No - Critical Care Critical Care patient: Yes Total Critical Care Time (in minutes): 36 Critical Care Statement: The care of this patient involved high complexity decision making to prevent further life threatening deterioration of the patient 's condition and/or to evaluate & treat vital organ system(s) failure or risk of failure. ATTENDING PHYSICIAN STATEMENT I saw and evaluated the patient. I reviewed the resident's note and discussed the case with the resident. I agree with the resident's findings and plan as documented. SUBJECTIVE: OBJECTIVE: ASSESSMENT AND PLAN:
--- NOTE | 2019-09-26 09:05 | PN ---
Progress Note (short form) - Note Progress Note: Neurology HISTORY OF PRESENT ILLNESS: 59 y/o female with hx of multiple (~30) back and spine surgeries, complex global myofascial pain syndrome, recurrent spinal stenosis, multiple sclerosis, mechanical thoracolumbar instability, admitted for surgical intervention and per notes completed: 1) inspection fusion mass (c-spine), 2) T1-3 laminectomies, 3) C7-T4 in situ fusion, 4) Inspection fusion mass (thoracolumbar spine), 5) posterior instrumentation T8-S1, 6) posteroir arthrodesis T8-S1, 7) bone allograft, 8) bone autograft, 9) complex wound closure (60cm). 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 Complaints of pain and pain mgmt has been consulted. Extensive conversation regarding her MS history which dates back to >10 years and reports previously on BetaSeron but felt no difference. States last MRI brain was 1 year ago, offered repeat which patient would like to defer and reports prior imaging stable and states she will not be able to stay flat and tolerate procedure. She does not want to start on MS meds and would like to focus on spinal mgmt at this time. As outpatient, would advise MRI brain with and without contrast to start with. Was being plaaned for ruff slide bilterally for feet but with temperature spikes. Reportedly to have pprocedure completed today, no neurologic objection to this. Lower extremity paraplegia has remained stable. Active Medications Acetaminophen (Ofirmev Injection -) 1,000 mg IVPB Q6H PRN PRN Reason: PAIN LEVEL 7 - 10 Last Admin: 09/25/19 17:34 Dose: 1,000 mg Amitriptyline HCl (Elavil -) 100 mg PO HS ARNIE Last Admin: 09/25/19 21:15 Dose: 100 mg Benzocaine/Menthol (Cepacol Lozenge -) 1 each MM PRN PRN PRN Reason: SORE THROAT Last Admin: 09/17/19 17:36 Dose: 1 each Cyclobenzaprine HCl (Flexeril -) 10 mg PO BID [facility] Last Admin: 09/25/19 21:15 Dose: 10 mg Dexamethasone Sodium Phosphate (Decadron Injection -) 4 mg IVPUSH ONCE PRN PRN Reason: NAUSEA AND/OR VOMITING Diphenhydramine HCl (Benadryl -) 50 mg PO BID [facility] Last Admin: 09/25/19 21:14 Dose: 50 mg Furosemide (Lasix Injection -) 40 mg IVPUSH BID [facility] Last Admin: 09/25/19 21:15 Dose: 40 mg Gabapentin (Neurontin -) 600 mg PO TID [facility] Last Admin: 09/26/19 06:25 Dose: 600 mg Hydromorphone HCl (Dilaudid -) 8 mg PO Q6H PRN PRN Reason: PAIN 7 - 10; IF OXY NOT WORK Last Admin: 09/26/19 02:18 Dose: 8 mg Piperacillin Sod/Tazobactam (Sod 3.375 gm/ Dextrose) 50 mls @ 100 mls/hr IVPB Q8H-IV [facility]; Protocol Last Admin: 09/26/19 02:18 Dose: 100 mls/hr Lorazepam (Ativan Injection -) 2 mg IVPUSH Q6H PRN PRN Reason: ANXIETY Last Admin: 09/26/19 05:03 Dose: 2 mg Melatonin (Melatonin) 10 mg PO HS PRN PRN Reason: INSOMNIA Last Admin: 09/22/19 21:09 Dose: 10 mg Miscellaneous (Duragesic Patch Waste) 1 each TD PRN PRN PRN Reason: PAIN Mupirocin (Bactroban 2% Ointment -) 1 applic TP BID [facility] Last Admin: 09/25/19 21:15 Dose: 1 applic Ondansetron HCl (Zofran Injection) 4 mg IVPUSH Q6H PRN PRN Reason: NAUSEA AND/OR VOMITING Last Admin: 09/25/19 10:44 Dose: 4 mg Ondansetron HCl (Zofran Injection) 4 mg IVPUSH Q4H PRN PRN Reason: NAUSEA AND/OR VOMITING Oxycodone HCl (Roxicodone -) 30 mg PO Q8H PRN PRN Reason: PAIN LEVEL 7 - 10 Last Admin: 09/26/19 04:57 Dose: 30 mg Polyethylene Glycol (Miralax (For Daily Use) -) 17 gm PO BID [facility] Last Admin: 09/25/19 21:15 Dose: Not Given Promethazine HCl (Phenergan Injection -) 12.5 mg IVPB Q6H PRN PRN Reason: NAUSEA AND/OR VOMITING Zolpidem Tartrate (Ambien -) 5 mg PO HS PRN PRN Reason: INSOMNIA Last Admin: 09/25/19 21:15 Dose: 5 mg PHYSICAL EXAMINATION Vital Signs Period Temp Pulse Resp BP Sys/Gallagher Pulse Ox Last 24 Hr 98.1 F-98.2 F 68-80 10-17 83-101/41-82 88-100 GENERAL: Awake, alert, and fully oriented, in no acute distress. HEAD: Normal with no signs of trauma. EYES: Pupils equal, round and reactive to light, extraocular movements intact, sclera anicteric, conjunctiva clear. No lid lag. EARS, NOSE, THROAT: Ears normal, nares patent, oropharynx clear without exudates. Moist mucous membranes. NECK: Normal range of motion, supple without lymphadenopathy, JVD, or masses. LUNGS: Breath sounds equal, clear to auscultation bilaterally. No wheezes, and no crackles. No accessory muscle use. HEART: Regular rate and rhythm, normal S1 and S2 without murmur, rub or gallop. ABDOMEN: Soft, nontender, not distended, normoactive bowel sounds, no guarding, no rebound, no masses. No hepatomegaly or splenomegaly. MUSCULOSKELETAL: Normal range of motion at all joints. No bony deformities or tenderness. No CVA tenderness. UPPER EXTREMITIES: 2+ pulses, warm, well-perfused. No cyanosis. No clubbing. Cap refill <2 seconds. No peripheral edema. LOWER EXTREMITIES: 2+ pulses, warm, well-perfused. No calf tenderness. No peripheral edema. NEUROLOGICAL: Cranial nerves II-XII intact. Normal speech. Normal gait. PSYCHIATRIC: Cooperative. Good eye contact. Appropriate mood and affect. SKIN: Warm, dry, normal turgor, no rashes or lesions noted. 2 CBCD WBC 8.1 K/mm3 (4.0-10.0) 09/26/19 06:00 RBC 3.36 M/mm3 (3.60-5.2) L 09/26/19 06:00 Hgb 10.0 GM/dL (10.7-15.3) L 09/26/19 06:00 Hct 30.2 % (32.4-45.2) L 09/26/19 06:00 MCV 90.0 fl (80-96) 09/26/19 06:00 MCHC 33.2 g/dl (32.0-36.0) 09/26/19 06:00 RDW 14.4 % (11.6-15.6) 09/26/19 06:00 Plt Count 781 K/MM3 (134-434) H 09/26/19 06:00 MPV 7.5 fl (7.5-11.1) 09/26/19 06:00 CMP Sodium 137 mmol/L (136-145) 09/26/19 06:00 Potassium 4.0 mmol/L (3.5-5.1) 09/26/19 06:00 Chloride 96 mmol/L (98-107) L 09/26/19 06:00 Carbon Dioxide 37 mmol/L (21-32) H 09/26/19 06:00 Anion Gap 3 MMOL/L (8-16) L 09/26/19 06:00 BUN 24.0 mg/dL (7-18) H 09/26/19 06:00 Creatinine 0.6 mg/dL (0.55-1.3) 09/26/19 06:00 Random Glucose 92 mg/dL (74-106) 09/26/19 06:00 Calcium 9.0 mg/dL (8.5-10.1) 09/26/19 06:00 Total Bilirubin 0.3 mg/dL (0.2-1) 09/26/19 06:00 AST 21 U/L (15-37) 09/26/19 06:00 ALT 27 U/L (13-61) 09/26/19 06:00 Alkaline Phosphatase 227 U/L (45-117) H 09/26/19 06:00 Total Protein 7.5 g/dl (6.4-8.2) 09/26/19 06:00 Albumin 2.5 g/dl (3.4-5.0) L 09/26/19 06:00 ASSESSMENT/PLAN: 59 y/o female with hx of multiple (~30) back and spine surgeries, complex global myofascial pain syndrome, recurrent spinal stenosis, multiple sclerosis, mechanical thoracolumbar instability, POD #0 s/p 1) inspection fusion mass (c- spine), 2) T1-3 laminectomies, 3) C7-T4 in situ fusion, 4) Inspection fusion mass (thoracolumbar spine), 5) posterior instrumentation T8-S1, 6) posteroir arthrodesis T8-S1, 7) bone allograft, 8) bone autograft, 9) complex wound closure (60cm). 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 Complaints of pain and pain mgmt has been consulted. Extensive conversation regarding her MS history which dates back to > 10 years and reports previously on BetaSeron but felt no difference. States last MRI brain was 1 year ago, offered repeat which patient would like to defer and reports prior imaging stable and states she will not be able to stay flat and tolerate procedure. She does not want to start on MS meds and would like to focus on spinal mgmt at this time. As outpatient, would advise MRI brain with and without contrast to start with. Was being plaaned for ruff slide bilterally for feet but with temperature spikes. Reportedly to have pprocedure completed today, no neurologic objection to this. Lower extremity paraplegia has remained stable. Defer to orthopedist and patient's infectious status. Patient eager to have procedure completed. Will likely require rehabilitation placement once medically stabilized. We'll have to reevaluate ambulation status at that point. Critical care time 35 mins.
[2019-09-26] MEDS: ACETAMINOPHEN 1000 MG/100 ML VIAL (NON FORMULARY) IVPB PRN ×3 (09:45→22:19)
[2019-09-26] MEDS: CYCLOBENZAPRINE HCL 10 MG TABLET (FP) PO SCH ×2 (09:47→21:11)
[2019-09-26] MEDS: FUROSEMIDE 40 MG/4 ML INJECTABLE VIAL IVPUSH SCH ×2 (09:48→11:37)
[2019-09-26] MEDS: diphenhydrAMINE HCL 25 MG CAPSULE (FP) PO SCH ×2 (09:48→21:10)
[2019-09-26] MEDS: POLYETHYLENE GLYCOL 3350 119 GM BTL PO SCH (09:50)
[2019-09-26] MEDS: MUPIROCIN 2% TOPICAL OINTMENT 22 GM TUBE TP SCH (10:44)
--- NOTE | 2019-09-26 11:58 | PN ---
Teaching Attending Note Name of Resident: Cody Colbert ATTENDING PHYSICIAN STATEMENT I saw and evaluated the patient. I reviewed the resident's note and discussed the case with the resident. I agree with the resident's findings and plan as documented. SUBJECTIVE: Pt seen and examined in the ICU. Denies shortness of breath or chest pain. Saturating 98% on room air. OBJECTIVE: Vital Signs Period Temp Pulse Resp BP Sys/Gallagher Pulse Ox Last 24 Hr 98.1 F-98.6 F 68-84 10-16 83-107/41-61 88-100 Intake & Output 09/23/19 09/24/19 09/25/19 09/26/19 23:59 23:59 23:59 23:59 Intake Total 782 670 3252 550 Output Total 3200 2800 2600 300 Balance -3050 -2080 -1510 250 Weight 100.698 kg 100.743 kg 100.289 kg Gen: NAD at rest Heart: RRR Lung: decreased breath sounds at the bases Abd: soft, nontender Ext: no edema CBC, BMP 09/26/19 06:00 09/26/19 06:00 Active Medications Acetaminophen (Ofirmev Injection -) 1,000 mg IVPB Q6H PRN PRN Reason: PAIN LEVEL 7 - 10 Last Admin: 09/26/19 09:45 Dose: 1,000 mg Amitriptyline HCl (Elavil -) 100 mg PO [facility] Last Admin: 09/25/19 21:15 Dose: 100 mg Benzocaine/Menthol (Cepacol Lozenge -) 1 each MM PRN PRN PRN Reason: SORE THROAT Last Admin: 09/17/19 17:36 Dose: 1 each Cyclobenzaprine HCl (Flexeril -) 10 mg PO BID [facility] Last Admin: 09/26/19 09:47 Dose: 10 mg Dexamethasone Sodium Phosphate (Decadron Injection -) 4 mg IVPUSH ONCE PRN PRN Reason: NAUSEA AND/OR VOMITING Diphenhydramine HCl (Benadryl -) 50 mg PO BID [facility] Last Admin: 09/26/19 09:48 Dose: 50 mg Furosemide (Lasix Injection -) 40 mg IVPUSH DAILY [facility] Last Admin: 09/26/19 11:37 Dose: 40 mg Gabapentin (Neurontin -) 600 mg PO TID [facility] Last Admin: 09/26/19 06:25 Dose: 600 mg Hydromorphone HCl (Dilaudid -) 8 mg PO Q6H PRN PRN Reason: PAIN 7 - 10; IF OXY NOT WORK Last Admin: 09/26/19 02:18 Dose: 8 mg Piperacillin Sod/Tazobactam (Sod 3.375 gm/ Dextrose) 50 mls @ 100 mls/hr IVPB Q8H-IV [facility]; Protocol Last Admin: 09/26/19 10:08 Dose: 100 mls/hr Lorazepam (Ativan Injection -) 2 mg IVPUSH Q6H PRN PRN Reason: ANXIETY Last Admin: 09/26/19 05:03 Dose: 2 mg Melatonin (Melatonin) 10 mg PO HS PRN PRN Reason: INSOMNIA Last Admin: 09/22/19 21:09 Dose: 10 mg Miscellaneous (Duragesic Patch Waste) 1 each TD PRN PRN PRN Reason: PAIN Mupirocin (Bactroban 2% Ointment -) 1 applic TP BID [facility] Last Admin: 09/26/19 10:44 Dose: 1 applic Ondansetron HCl (Zofran Injection) 4 mg IVPUSH Q6H PRN PRN Reason: NAUSEA AND/OR VOMITING Last Admin: 09/25/19 10:44 Dose: 4 mg Ondansetron HCl (Zofran Injection) 4 mg IVPUSH Q4H PRN PRN Reason: NAUSEA AND/OR VOMITING Oxycodone HCl (Roxicodone -) 30 mg PO Q8H PRN PRN Reason: PAIN LEVEL 7 - 10 Last Admin: 09/26/19 04:57 Dose: 30 mg Polyethylene Glycol (Miralax (For Daily Use) -) 17 gm PO BID [facility] Last Admin: 09/26/19 09:50 Dose: Not Given Promethazine HCl (Phenergan Injection -) 12.5 mg IVPB Q6H PRN PRN Reason: NAUSEA AND/OR VOMITING Zolpidem Tartrate (Ambien -) 5 mg PO HS PRN PRN Reason: INSOMNIA Last Admin: 09/25/19 21:15 Dose: 5 mg ASSESSMENT AND PLAN: Progressive Kyphoscoliosis s/p T1-T3 Laminectomies/C7-T4 Fusion/T8-S1 Posterior Instrumentation/Arthrodesis Anemia Acute Hypoxic Respiratory Failure Volume Overload Pleural Effusions r/o Pneumonia - continue antibiotics - O2 to keep SpO2 >90% - continue lasix, decrease to daily - monitor urine output, creatinine - keep net negative - pain control - incentive spirometry - PO as tolerated - antiemetics - activity/diet/DVT prophylaxis per surgery - can monitor on telemetry
--- NOTE | 2019-09-26 14:51 | PN ---
Physical Exam: SUBJECTIVE: Patient seen and examined. No acute events overnight. OBJECTIVE: Vital Signs Period Temp Pulse Resp BP Sys/Gallagher Pulse Ox Last 24 Hr 98.1 F-98.6 F 70-91 10-16 83-107/45-61 88-100 GENERAL: NAD, A&O x3. HEAD: Normal with no signs of trauma. EYES: PERRL, extraocular movements intact ENT: Ears normal, nares patent, dry mucous membranes. NECK: Trachea midline. LUNGS: Mild bibasilar crackles, improving. No wheezes. Pt off of HFOT, now on 5L NC HEART: Regular rate and rhythm, no murmur ABDOMEN: Soft, nontender, nondistended, normoactive bowel sounds BACK: Pinpoint area of erythema on left upper back just lateral to bandage EXTREMITIES: Warm, well-perfused, no edema. Can actively move both feet L>R. NEUROLOGICAL: Normal speech. CN II-XII intact. Gait not observed. SKIN: Warm, dry, normal turgor. Laboratory Results - last 24 hr CBC, BMP 09/26/19 06:00 09/26/19 06:00 Active Medications Acetaminophen (Ofirmev Injection -) 1,000 mg IVPB Q6H PRN PRN Reason: PAIN LEVEL 7 - 10 Last Admin: 09/26/19 09:45 Dose: 1,000 mg Amitriptyline HCl (Elavil -) 100 mg PO HS [facility] Last Admin: 09/25/19 21:15 Dose: 100 mg Benzocaine/Menthol (Cepacol Lozenge -) 1 each MM PRN PRN PRN Reason: SORE THROAT Last Admin: 09/17/19 17:36 Dose: 1 each Cyclobenzaprine HCl (Flexeril -) 10 mg PO BID [facility] Last Admin: 09/26/19 09:47 Dose: 10 mg Dexamethasone Sodium Phosphate (Decadron Injection -) 4 mg IVPUSH ONCE PRN PRN Reason: NAUSEA AND/OR VOMITING Diphenhydramine HCl (Benadryl -) 50 mg PO BID [facility] Last Admin: 09/26/19 09:48 Dose: 50 mg Furosemide (Lasix Injection -) 40 mg IVPUSH DAILY [facility] Last Admin: 09/26/19 11:37 Dose: 40 mg Gabapentin (Neurontin -) 600 mg PO TID [facility] Last Admin: 09/26/19 06:25 Dose: 600 mg Hydromorphone HCl (Dilaudid -) 8 mg PO Q6H PRN PRN Reason: PAIN 7 - 10; IF OXY NOT WORK Last Admin: 09/26/19 02:18 Dose: 8 mg Lorazepam (Ativan Injection -) 2 mg IVPUSH Q6H PRN PRN Reason: ANXIETY Last Admin: 09/26/19 13:21 Dose: 2 mg Melatonin (Melatonin) 10 mg PO HS PRN PRN Reason: INSOMNIA Last Admin: 09/22/19 21:09 Dose: 10 mg Miscellaneous (Duragesic Patch Waste) 1 each TD PRN PRN PRN Reason: PAIN Mupirocin (Bactroban 2% Ointment -) 1 applic TP BID [facility] Last Admin: 09/26/19 10:44 Dose: 1 applic Ondansetron HCl (Zofran Injection) 4 mg IVPUSH Q6H PRN PRN Reason: NAUSEA AND/OR VOMITING Last Admin: 09/25/19 10:44 Dose: 4 mg Ondansetron HCl (Zofran Injection) 4 mg IVPUSH Q4H PRN PRN Reason: NAUSEA AND/OR VOMITING Oxycodone HCl (Roxicodone -) 30 mg PO Q8H PRN PRN Reason: PAIN LEVEL 7 - 10 Last Admin: 09/26/19 13:27 Dose: 30 mg Polyethylene Glycol (Miralax (For Daily Use) -) 17 gm PO BID [facility] Last Admin: 09/26/19 09:50 Dose: Not Given Promethazine HCl (Phenergan Injection -) 12.5 mg IVPB Q6H PRN PRN Reason: NAUSEA AND/OR VOMITING Zolpidem Tartrate (Ambien -) 5 mg PO HS PRN PRN Reason: INSOMNIA Last Admin: 09/25/19 21:15 Dose: 5 mg ASSESSMENT/PLAN: Ms. Tafoya is a 59y/o female with multiple (~30) back and spine surgeries, complex global myofascial pain syndrome, recurrent spinal stenosis, multiple sclerosis, and mechanical thoracolumbar instability who presents for spinal surgery. #ARDS likely 2/2 pneumonia - resolved CTA (09/18): Thickening of interstitial septi and diffuse groundglass opacities with pleural effusions suggesting ARDS CXR (09/23): normal aeration L lung, improving R lung. F/u daily CXR for progress Zosyn 3.375gm Q8H per ID (Dr. Bennett) 10 day course completed F/u blood, urine, and sputum cx, no growth. Lasix to 40mg BID decreased to 40mg qd Weaned off of NC O2, tolerating well Incentive spirometry #Complex spinal pain 2/2 mechanical instability and myofascial decompensation s/ p multi-level spinal intervention, POD 7. Planned achilles lengthening procedure with ortho ([facility]as), delayed due to HFOT and pyrexia. Pt now stable on NC, planned OR today Defer pain control to anesthesiology: Gabapentin 600mg TID Lorazepam 2mg IV Q6H PRN Ambien 5mg PO HS PRN for insomnia Dilaudid 8mg Q6H PO PRN and Oxycodone 30mg Q8H PO PRN for pain Benadryl 50mg PO BID Amytriptyline 100mg PO HS PT eval daily. No bending, lifting (>5 lbs), or twisting for 9-12 months, f/ u 7-10 days after rehab d/c #Normocytic anemia Hgb: 10.1, stabilized FOBT: negative Hold off on units for now Cont to monitor closely #Hypomagnesemia M.0 today Cont to monitor daily #DVT ppx SCDs #FEN Monitor Mg and Hb Regular diet #Dispo: Downgrade to tele SNF Visit type - Emergency Visit Emergency Visit: No - New Patient This patient is new to me today: No - Critical Care Critical Care patient: No ATTENDING PHYSICIAN STATEMENT I saw and evaluated the patient. I reviewed the resident's note and discussed the case with the resident. I agree with the resident's findings and plan as documented. SUBJECTIVE: OBJECTIVE: ASSESSMENT AND PLAN:
--- NOTE | 2019-09-26 17:20 | PN ---
Teaching Attending Note Name of Resident: Chanda Graham ATTENDING PHYSICIAN STATEMENT I saw and evaluated the patient. I reviewed the resident's note and discussed the case with the resident. I agree with the resident's findings and plan as documented. SUBJECTIVE: Awake, alert, responsive, disappointed that surgery was cancelled yesterday, expecting surgery today. Complains of ongoing pain LEs. OBJECTIVE: Fever resolved. Hemodynamically Stable. AAO x 3. Weaned of O2, now SpO2 97% on RA Last Vital Signs Temp Pulse Resp BP Pulse Ox 98.4 F 81 16 106/61 97 09/26/19 15:02 09/26/19 16:00 09/26/19 16:00 09/26/19 16:00 09/26/19 10:00 Heart - S1, S2, RRR Lungs - decreased air entry at bases. Abdomen - Soft, non-tender. Bowel Sounds normal. Extremities - mild edema, no calf tenderness. RLE paresis, altered sensation ( chronic) Laboratory Results - last 24 hr 09/26/19 09/26/19 06:00 06:00 WBC 8.1 RBC 3.36 L Hgb 10.0 L Hct 30.2 L MCV 90.0 MCH 29.9 MCHC 33.2 RDW 14.4 Plt Count 781 H MPV 7.5 Absolute Neuts (auto) 4.6 Neutrophils % 56.3 Lymphocytes % 27.2 Monocytes % 5.7 Eosinophils % 10.1 H Basophils % 0.7 Nucleated RBC % 0 Sodium 137 Potassium 4.0 Chloride 96 L Carbon Dioxide 37 H Anion Gap 3 L BUN 24.0 H Creatinine 0.6 Est GFR (CKD-EPI)AfAm 117.27 Est GFR (CKD-EPI)NonAf 101.18 Random Glucose 92 Calcium 9.0 Total Bilirubin 0.3 AST 21 ALT 27 Alkaline Phosphatase 227 H Total Protein 7.5 Albumin 2.5 L Current Medications Generic Name Dose Route Start Last Admin Trade Name Freq PRN Reason Stop Dose Admin Acetaminophen 1,000 mg 09/25/19 17:16 09/26/19 16:28 Ofirmev Injection - IVPB 1,000 mg Q6H PRN Administration PAIN LEVEL 7 - 10 Amitriptyline HCl 100 mg 09/10/19 16:26 09/25/19 21:15 Elavil - PO 100 mg HS ARNIE Administration Benzocaine/Menthol 1 each 09/17/19 12:19 09/17/19 17:36 Cepacol Lozenge - MM 1 each PRN PRN Administration SORE THROAT Cyclobenzaprine HCl 10 mg 09/21/19 12:45 09/26/19 09:47 Flexeril - PO 10 mg BID ARNIE Administration Dexamethasone Sodium Phosphate 4 mg 09/11/19 18:40 Decadron Injection - IVPUSH ONCE PRN NAUSEA AND/OR VOMITING Diphenhydramine HCl 50 mg 09/15/19 10:00 09/26/19 09:48 Benadryl - PO 50 mg BID ARNIE Administration Furosemide 40 mg 09/26/19 11:30 09/26/19 11:37 Lasix Injection - IVPUSH 40 mg DAILY ARNIE Administration Gabapentin 600 mg 09/13/19 14:00 09/26/19 16:35 Neurontin - PO 600 mg TID ARNIE Administration Hydromorphone HCl 8 mg 09/25/19 10:40 09/26/19 16:27 Dilaudid - PO 8 mg Q6H PRN Administration PAIN 7 - 10; IF OXY NOT WORK Lorazepam 2 mg 09/25/19 10:54 09/26/19 13:21 Ativan Injection - IVPUSH 2 mg Q6H PRN Administration ANXIETY Melatonin 10 mg 09/19/19 19:22 09/22/19 21:09 Melatonin PO 10 mg HS PRN Administration INSOMNIA Miscellaneous 1 each 09/21/19 22:19 Duragesic Patch Waste TD PRN PRN PAIN Mupirocin 1 applic 09/15/19 10:45 09/26/19 10:44 Bactroban 2% Ointment - TP 1 applic BID ARNIE Administration Ondansetron HCl 4 mg 09/09/19 16:47 09/25/19 10:44 Zofran Injection IVPUSH 4 mg Q6H PRN Administration NAUSEA AND/OR VOMITING Ondansetron HCl 4 mg 09/11/19 18:40 Zofran Injection IVPUSH Q4H PRN NAUSEA AND/OR VOMITING Oxycodone HCl 30 mg 09/22/19 10:32 09/26/19 13:27 Roxicodone - PO 30 mg Q8H PRN Administration PAIN LEVEL 7 - 10 Polyethylene Glycol 17 gm 09/17/19 22:00 09/26/19 09:50 Miralax (For Daily Use) - PO Not Given BID ARNIE Promethazine HCl 12.5 mg 09/11/19 18:43 Phenergan Injection - IVPB Q6H PRN NAUSEA AND/OR VOMITING Zolpidem Tartrate 5 mg 09/23/19 19:29 09/25/19 21:15 Ambien - PO 5 mg HS PRN Administration INSOMNIA Home Medications Medication Instructions Recorded Amitriptyline HCl [Elavil -] 50 mg PO HS 01/16/19 Oxycodone HCl 60 mg PO Q8H 01/16/19 HYDROmorphone [Dilaudid -] 8 mg PO Q6H PRN 03/04/19 Cyclobenzaprine HCl 1 tab PO TID 03/05/19 LORazepam [Ativan] 2 mg PO TID tablet MDD 6mg 03/11/19 Amitriptyline HCl 100 mg PO TID 09/06/19 Alprazolam [Xanax] 0.5 mg PO BID 09/12/19 Fluoxetine HCl 10 mg PO BID 09/12/19 Prednisone 5 mg PO QID 09/12/19 ASSESSMENT AND PLAN: 59 year old female with history of MS, recurrent lumbar spinal stenosis, s/p multiple back surgeries, complex global myofascial pain syndrome, mechanical thoracolumbar instability, admitted for spine surgery. POD 17 s/p 1. Inspection fusion mass (cervical spine). 2. T1, T2, T3 laminectomies. 3. C7 -T4 in situ fusion. 4. Inspection fusion mass (thoracolumbar spine). 5. Posterior instrumentation T8-S1. 6. Posterior arthrodesis T8-S1. 7. Bone allograft. 8. Bone autograft. 9. Complex wound closure 1. 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 Dilaudid PRN for pain management. Continue Dilaudid prn, Elavil, Neurontin, Ativan Daily deferral of Bilateral Achilles tendon lengthening/release - reasons unclear. Further management as per Ortho. 2. Acute Hypoxic respiratory failure and Sepsis secondary to Pneumonia, fluid overload, ARDS - resolved Weaned off high flow, now on 3L via NC. Clinically improving. Fever resolved. CTA Chest neg for PE but shows bilateral interstitial infiltrates + fluid ? Pneumonia +/- ARDS Responding to IV lasix. Repeat CXR shows improved aeration. Blood Cx neg. Urine Cx contaminated. On IV Zosyn for HCAP (Day 10). Will hold further Abx therapy. Monitor respiratory status. 3. Acute Metabolic Encephalopathy secondary to Hypoxia + Sepsis - resolved. AAO x 3, agitation/confusion resolved. Now depressed and intermittently tearful and frustrated due to continued immobility and further delay of Surgery. Resumed on Ativan, which patient takes chronically for anxiety. 4. Anemia - normocytic s/p spinal surgery. No evidence of ongoing blood loss Will monitor H/H and transfuse if necessary. 5. Hypokalemia - resolved s/p repletion. 6. Thrombocytosis, acute, reactive. Will monitor. DVT Px - SCDs
[2019-09-26] MEDS ORDERED: PT OWN MED DRAWER 7, Y5N ONE (20:35)
[2019-09-26] MEDS: MELATONIN 5 MG TABLETS PO PRN (21:11)
[2019-09-26] MEDS: AMITRIPTYLINE HCL 25 MG TABLET (FP) PO SCH (21:12)
[2019-09-27] MEDS: MUPIROCIN 2% TOPICAL OINTMENT 22 GM TUBE TP SCH ×3 (00:18→21:13)
[2019-09-27] MEDS: LORazepam 2 MG/ML SDV VIAL IVPUSH PRN ×4 (00:21→21:16)
[2019-09-27] MEDS: POLYETHYLENE GLYCOL 3350 119 GM BTL PO SCH ×2 (04:06→09:18)
[2019-09-27] MEDS: GABAPENTIN 300 MG CAPSULE (FP) PO SCH ×3 (05:32→21:14)
[2019-09-27] MEDS: oxyCODONE HCL 5 MG TABLET PO PRN ×3 (05:33→23:41)
[2019-09-27 06:28] LABS: HEMATOCRIT 29.5 % (32.4-45.2); HEMOGLOBIN 9.7 GM/dL (10.7-15.3); LYMPH % 34.6 % (8-40); MCH 29.7 pg (25.7-33.7); MCHC 32.9 g/dl (32.0-36.0); MEAN CELL VOLUME 90.2 fl (80-96); MEAN PLT VOLUME 7.7 fl (7.5-11.1); MONO % 7.8 % (3.8-10.2); NEUT % 45.6 % (42.8-82.8); PLATELET COUNT 754 K/MM3 (134-434); RBC 3.28 M/mm3 (3.60-5.2); RDW 14.5 % (11.6-15.6); WHITE BLOOD COUNT 6.3 K/mm3 (4.0-10.0)
[2019-09-27 06:59] LABS: ALBUMIN 2.3 g/dl (3.4-5.0); BILIRUBIN,TOTAL 0.2 mg/dL (0.2-1); BLOOD UREA NITROGEN 21.1 mg/dL (7-18); CALCIUM 8.8 mg/dL (8.5-10.1); CREATININE 0.6 mg/dL (0.55-1.3); PHOSPHOROUS 3.3 mg/dL (2.5-4.9); POTASSIUM 3.9 mmol/L (3.5-5.1); TOT PROT 7.1 g/dl (6.4-8.2)
--- NOTE | 2019-09-27 07:54 | PN ---
Physical Exam: SUBJECTIVE: Patient seen and examined by the bedside. Appears agitated due to surgery being postponed, but otherwise doing well. No SOB OBJECTIVE: Vital Signs Period Temp Pulse Resp BP Sys/Gallagher Pulse Ox Last 24 Hr -97.2 F-98.6 F 70-91 14-18 81-111/50-74 97-97 GENERAL: The patient is AOx3, and fully oriented, pain well controlled HEAD: Normal with no signs of trauma. EYES: PERRL, extraocular movements intact, sclera anicteric, conjunctiva clear. No ptosis. LUNGS: Breath sounds equal, clear to auscultation bilaterally, no wheezes, no crackles, no accessory muscle use. HEART: Regular rate and rhythm, S1, S2 without murmur, rub or gallop. ABDOMEN: Soft, nontender, nondistended, normoactive bowel sounds, no guarding, no rebound, no hepatosplenomegaly, no masses. EXTREMITIES: 2+ pulses, warm, well-perfused, no edema. NEUROLOGICAL: Motor strength upper limb 3/5, lower limb 1/5, sensations intact in all extremities Laboratory Results - last 24 hr 09/27/19 09/27/19 06:00 06:00 WBC 6.3 RBC 3.28 L Hgb 9.7 L Hct 29.5 L MCV 90.2 MCH 29.7 MCHC 32.9 RDW 14.5 Plt Count 754 H MPV 7.7 Absolute Neuts (auto) 2.8 Neutrophils % 45.6 Lymphocytes % 34.6 D Monocytes % 7.8 Eosinophils % 11.0 H Basophils % 1.0 Nucleated RBC % 0 Sodium 139 Potassium 3.9 Chloride 99 Carbon Dioxide 36 H Anion Gap 4 L BUN 21.1 H Creatinine 0.6 Est GFR (CKD-EPI)AfAm 117.27 Est GFR (CKD-EPI)NonAf 101.18 Random Glucose 93 Calcium 8.8 Phosphorus 3.3 Magnesium 2.0 Total Bilirubin 0.2 AST 17 ALT 23 Alkaline Phosphatase 207 H Total Protein 7.1 Albumin 2.3 L Active Medications Generic Name Dose Route Start Last Admin Trade Name Freq PRN Reason Stop Dose Admin Amitriptyline HCl 100 mg 09/10/19 16:26 09/26/19 21:12 Elavil - PO 100 mg HS ARNIE Administration Benzocaine/Menthol 1 each 09/17/19 12:19 09/17/19 17:36 Cepacol Lozenge - MM 1 each PRN PRN Administration SORE THROAT Cyclobenzaprine HCl 10 mg 09/21/19 12:45 09/26/19 21:11 Flexeril - PO 10 mg BID ARNIE Administration Dexamethasone Sodium Phosphate 4 mg 09/11/19 18:40 Decadron Injection - IVPUSH ONCE PRN NAUSEA AND/OR VOMITING Diphenhydramine HCl 50 mg 09/15/19 10:00 09/26/19 21:10 Benadryl - PO 50 mg BID ARNIE Administration Furosemide 40 mg 09/26/19 11:30 09/26/19 11:37 Lasix Injection - IVPUSH 40 mg DAILY [facility] Administration Gabapentin 600 mg 09/13/19 14:00 09/27/19 05:32 Neurontin - PO 600 mg TID [facility] Administration Hydromorphone HCl 8 mg 09/25/19 10:40 09/26/19 22:18 Dilaudid - PO 8 mg Q6H PRN Administration PAIN 7 - 10; IF OXY NOT WORK Lorazepam 2 mg 09/25/19 10:54 09/27/19 07:07 Ativan Injection - IVPUSH 2 mg Q6H PRN Administration ANXIETY Melatonin 10 mg 09/19/19 19:22 09/26/19 21:11 Melatonin PO 10 mg HS PRN Administration INSOMNIA Miscellaneous 1 each 09/21/19 22:19 Duragesic Patch Waste TD PRN PRN PAIN Mupirocin 1 applic 09/15/19 10:45 09/27/19 00:18 Bactroban 2% Ointment - TP Not Given BID [facility] Ondansetron HCl 4 mg 09/09/19 16:47 09/25/19 10:44 Zofran Injection IVPUSH 4 mg Q6H PRN Administration NAUSEA AND/OR VOMITING Ondansetron HCl 4 mg 09/11/19 18:40 Zofran Injection IVPUSH Q4H PRN NAUSEA AND/OR VOMITING Oxycodone HCl 30 mg 09/22/19 10:32 09/27/19 05:33 Roxicodone - PO 30 mg Q8H PRN Administration PAIN LEVEL 7 - 10 Polyethylene Glycol 17 gm 09/17/19 22:00 09/27/19 04:06 Miralax (For Daily Use) - PO Not Given BID ARNIE Promethazine HCl 12.5 mg 09/11/19 18:43 Phenergan Injection - IVPB Q6H PRN NAUSEA AND/OR VOMITING ASSESSMENT/PLAN: This is a 59 YO F with PMH significant for MS, recurrent spinal stenosis, multiple spinal surgeries. POD #16 for posterior thoracic decompression, cervicothoracic in situ fusion, and revision thoracolumbar instrumented fusion. Bakers Slide procedure planned today. #Respiratory - Lasix 40mg IVPUSH reduced to OD from BID - On room air now - Incentive spirometery #Neuro - Lorazepam 2mg IV Q6H PRN - Ambien 5mg PO HS PRN for insomnia - Dilaudid 8mg Q6H PO PRN and Oxycodone 30mg Q8H PO PRN for pain - Benadryl 50mg PO BID - Amytriptyline 100mg PO HS - Nasuea: Promethazine 12.5mg IV Q6H PRN and Zofran 4mg IV Q4H PRN #Ortho - Aguilar's slide procedure planned today - Gabapentin 600mg PO TID #ID - Has been afebrile - Blood cx no growth, urine cx contaminated - Zosyn 3.375mg Q8H stopped after 10 days - ID on board #GI - Alk Phos 375 -> 359 -> 346 -> 307 -> 273 - Miralax 17mg BID #FEN - NPO after breakfast #DVT PE - SCDs #Dispo: - Transfer to Tele - Possible Bakers slide procedure today 2PM Visit type - Emergency Visit Emergency Visit: No - New Patient This patient is new to me today: No - Critical Care Critical Care patient: Yes Total Critical Care Time (in minutes): 36 Critical Care Statement: The care of this patient involved high complexity decision making to prevent further life threatening deterioration of the patient 's condition and/or to evaluate & treat vital organ system(s) failure or risk of failure. ATTENDING PHYSICIAN STATEMENT I saw and evaluated the patient. I reviewed the resident's note and discussed the case with the resident. I agree with the resident's findings and plan as documented. SUBJECTIVE: OBJECTIVE: ASSESSMENT AND PLAN:
[2019-09-27] MEDS: CYCLOBENZAPRINE HCL 10 MG TABLET (FP) PO SCH ×2 (09:10→21:14)
[2019-09-27] MEDS: diphenhydrAMINE HCL 25 MG CAPSULE (FP) PO SCH ×2 (09:11→21:13)
[2019-09-27] MEDS: FUROSEMIDE 40 MG/4 ML INJECTABLE VIAL IVPUSH SCH (09:11)
--- NOTE | 2019-09-27 09:31 | PN ---
Progress Note (short form) - Note Progress Note: Neurology HISTORY OF PRESENT ILLNESS: 59 y/o female with hx of multiple (~30) back and spine surgeries, complex global myofascial pain syndrome, recurrent spinal stenosis, multiple sclerosis, mechanical thoracolumbar instability, admitted for surgical intervention and per notes completed: 1) inspection fusion mass (c-spine), 2) T1-3 laminectomies, 3) C7-T4 in situ fusion, 4) Inspection fusion mass (thoracolumbar spine), 5) posterior instrumentation T8-S1, 6) posteroir arthrodesis T8-S1, 7) bone allograft, 8) bone autograft, 9) complex wound closure (60cm). 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 Complaints of pain and pain mgmt has been consulted. Extensive conversation regarding her MS history which dates back to >10 years and reports previously on BetaSeron but felt no difference. States last MRI brain was 1 year ago, offered repeat which patient would like to defer and reports prior imaging stable and states she will not be able to stay flat and tolerate procedure. She does not want to start on MS meds and would like to focus on spinal mgmt at this time. As outpatient, would advise MRI brain with and without contrast to start with. Was being plaaned for ruff slide bilterally for feet but with temperature spikes. Lower extremity paraparesis has remained stable. Defer to ortho regarding intervention. Active Medications Amitriptyline HCl (Elavil -) 100 mg PO HS [facility] Last Admin: 09/26/19 21:12 Dose: 100 mg Benzocaine/Menthol (Cepacol Lozenge -) 1 each MM PRN PRN PRN Reason: SORE THROAT Last Admin: 09/17/19 17:36 Dose: 1 each Cyclobenzaprine HCl (Flexeril -) 10 mg PO BID [facility] Last Admin: 09/27/19 09:10 Dose: 10 mg Dexamethasone Sodium Phosphate (Decadron Injection -) 4 mg IVPUSH ONCE PRN PRN Reason: NAUSEA AND/OR VOMITING Diphenhydramine HCl (Benadryl -) 50 mg PO BID [facility] Last Admin: 09/27/19 09:11 Dose: 50 mg Furosemide (Lasix Injection -) 40 mg IVPUSH DAILY [facility] Last Admin: 09/27/19 09:11 Dose: 40 mg Gabapentin (Neurontin -) 600 mg PO TID [facility] Last Admin: 09/27/19 05:32 Dose: 600 mg Hydromorphone HCl (Dilaudid -) 8 mg PO Q6H PRN PRN Reason: PAIN 7 - 10; IF OXY NOT WORK Last Admin: 09/27/19 09:10 Dose: 8 mg Lorazepam (Ativan Injection -) 2 mg IVPUSH Q6H PRN PRN Reason: ANXIETY Last Admin: 09/27/19 07:07 Dose: 2 mg Melatonin (Melatonin) 10 mg PO HS PRN PRN Reason: INSOMNIA Last Admin: 09/26/19 21:11 Dose: 10 mg Miscellaneous (Duragesic Patch Waste) 1 each TD PRN PRN PRN Reason: PAIN Mupirocin (Bactroban 2% Ointment -) 1 applic TP BID [facility] Last Admin: 09/27/19 09:15 Dose: Not Given Ondansetron HCl (Zofran Injection) 4 mg IVPUSH Q6H PRN PRN Reason: NAUSEA AND/OR VOMITING Last Admin: 09/25/19 10:44 Dose: 4 mg Ondansetron HCl (Zofran Injection) 4 mg IVPUSH Q4H PRN PRN Reason: NAUSEA AND/OR VOMITING Oxycodone HCl (Roxicodone -) 30 mg PO Q8H PRN PRN Reason: PAIN LEVEL 7 - 10 Last Admin: 09/27/19 05:33 Dose: 30 mg Polyethylene Glycol (Miralax (For Daily Use) -) 17 gm PO BID [facility] Last Admin: 09/27/19 09:18 Dose: Not Given Promethazine HCl (Phenergan Injection -) 12.5 mg IVPB Q6H PRN PRN Reason: NAUSEA AND/OR VOMITING PHYSICAL EXAMINATION Vital Signs Period Temp Pulse Resp BP Sys/Gallagher Pulse Ox Last 24 Hr 97.2 F-98.4 F 72-91 14-18 81-111/50-74 97-97 GENERAL: Awake, alert, and fully oriented, in no acute distress. HEAD: Normal with no signs of trauma. EYES: Pupils equal, round and reactive to light, extraocular movements intact, sclera anicteric, conjunctiva clear. No lid lag. EARS, NOSE, THROAT: Ears normal, nares patent, oropharynx clear without exudates. Moist mucous membranes. NECK: Normal range of motion, supple without lymphadenopathy, JVD, or masses. LUNGS: Breath sounds equal, clear to auscultation bilaterally. No wheezes, and no crackles. No accessory muscle use. HEART: Regular rate and rhythm, normal S1 and S2 without murmur, rub or gallop. ABDOMEN: Soft, nontender, not distended, normoactive bowel sounds, no guarding, no rebound, no masses. No hepatomegaly or splenomegaly. MUSCULOSKELETAL: Normal range of motion at all joints. No bony deformities or tenderness. No CVA tenderness. UPPER EXTREMITIES: 2+ pulses, warm, well-perfused. No cyanosis. No clubbing. Cap refill <2 seconds. No peripheral edema. LOWER EXTREMITIES: 2+ pulses, warm, well-perfused. No calf tenderness. No peripheral edema. NEUROLOGICAL: Cranial nerves II-XII intact. Normal speech. Normal gait. PSYCHIATRIC: Cooperative. Good eye contact. Appropriate mood and affect. SKIN: Warm, dry, normal turgor, no rashes or lesions noted. 2 CBCD WBC 6.3 K/mm3 (4.0-10.0) 09/27/19 06:00 RBC 3.28 M/mm3 (3.60-5.2) L 09/27/19 06:00 Hgb 9.7 GM/dL (10.7-15.3) L 09/27/19 06:00 Hct 29.5 % (32.4-45.2) L 09/27/19 06:00 MCV 90.2 fl (80-96) 09/27/19 06:00 MCHC 32.9 g/dl (32.0-36.0) 09/27/19 06:00 RDW 14.5 % (11.6-15.6) 09/27/19 06:00 Plt Count 754 K/MM3 (134-434) H 09/27/19 06:00 MPV 7.7 fl (7.5-11.1) 09/27/19 06:00 CMP Sodium 139 mmol/L (136-145) 09/27/19 06:00 Potassium 3.9 mmol/L (3.5-5.1) 09/27/19 06:00 Chloride 99 mmol/L (98-107) 09/27/19 06:00 Carbon Dioxide 36 mmol/L (21-32) H 09/27/19 06:00 Anion Gap 4 MMOL/L (8-16) L 09/27/19 06:00 BUN 21.1 mg/dL (7-18) H 09/27/19 06:00 Creatinine 0.6 mg/dL (0.55-1.3) 09/27/19 06:00 Random Glucose 93 mg/dL (74-106) 09/27/19 06:00 Calcium 8.8 mg/dL (8.5-10.1) 09/27/19 06:00 Total Bilirubin 0.2 mg/dL (0.2-1) 09/27/19 06:00 AST 17 U/L (15-37) 09/27/19 06:00 ALT 23 U/L (13-61) 09/27/19 06:00 Alkaline Phosphatase 207 U/L (45-117) H 09/27/19 06:00 Total Protein 7.1 g/dl (6.4-8.2) 09/27/19 06:00 Albumin 2.3 g/dl (3.4-5.0) L 09/27/19 06:00 ASSESSMENT/PLAN: 59 y/o female with hx of multiple (~30) back and spine surgeries, complex global myofascial pain syndrome, recurrent spinal stenosis, multiple sclerosis, mechanical thoracolumbar instability, POD #0 s/p 1) inspection fusion mass (c- spine), 2) T1-3 laminectomies, 3) C7-T4 in situ fusion, 4) Inspection fusion mass (thoracolumbar spine), 5) posterior instrumentation T8-S1, 6) posteroir arthrodesis T8-S1, 7) bone allograft, 8) bone autograft, 9) complex wound closure (60cm). 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 Complaints of pain and pain mgmt has been consulted. Extensive conversation regarding her MS history which dates back to > 10 years and reports previously on BetaSeron but felt no difference. States last MRI brain was 1 year ago, offered repeat which patient would like to defer and reports prior imaging stable and states she will not be able to stay flat and tolerate procedure. She does not want to start on MS meds and would like to focus on spinal mgmt at this time. As outpatient, would advise MRI brain with and without contrast to start with. Was being plaaned for ruff slide bilterally for feet but with temperature spikes now afebrile. Defer to orthopedist and patient's infectious status. Patient eager to have procedure completed. Will likely require rehabilitation placement once medically stabilized. We'll have to reevaluate ambulation status at that point. Discussed with nurse and ICU resident. Critical care time 35 mins.
--- NOTE | 2019-09-27 10:25 | PN ---
Teaching Attending Note Name of Resident: Lucas Vasques ATTENDING PHYSICIAN STATEMENT I saw and evaluated the patient. I reviewed the resident's note and discussed the case with the resident. I agree with the resident's findings and plan as documented. SUBJECTIVE: Patient seen and examined in the ICU. Denies shortness of breath or chest pain. Saturating 98% on room air. No acute events overnight. OBJECTIVE: Intake & Output 09/24/19 09/25/19 09/26/19 09/27/19 23:59 23:59 23:59 23:59 Intake Total 720 1090 1545 240 Output Total 2800 2600 425 400 Balance -2080 -1510 1120 -160 Weight 222 lb 1.6 oz 221 lb 1.6 oz Last Vital Signs Temp Pulse Resp BP Pulse Ox 97.2 F L 77 14 103/57 L 97 09/27/19 06:00 09/27/19 08:00 09/27/19 08:00 09/27/19 08:00 09/27/19 07:31 Active Medications Amitriptyline HCl (Elavil -) 100 mg PO HS [facility] Last Admin: 09/26/19 21:12 Dose: 100 mg Benzocaine/Menthol (Cepacol Lozenge -) 1 each MM PRN PRN PRN Reason: SORE THROAT Last Admin: 09/17/19 17:36 Dose: 1 each Cyclobenzaprine HCl (Flexeril -) 10 mg PO BID [facility] Last Admin: 09/27/19 09:10 Dose: 10 mg Dexamethasone Sodium Phosphate (Decadron Injection -) 4 mg IVPUSH ONCE PRN PRN Reason: NAUSEA AND/OR VOMITING Diphenhydramine HCl (Benadryl -) 50 mg PO BID [facility] Last Admin: 09/27/19 09:11 Dose: 50 mg Furosemide (Lasix Injection -) 40 mg IVPUSH DAILY [facility] Last Admin: 09/27/19 09:11 Dose: 40 mg Gabapentin (Neurontin -) 600 mg PO TID [facility] Last Admin: 09/27/19 05:32 Dose: 600 mg Hydromorphone HCl (Dilaudid -) 8 mg PO Q6H PRN PRN Reason: PAIN 7 - 10; IF OXY NOT WORK Last Admin: 09/27/19 09:10 Dose: 8 mg Lorazepam (Ativan Injection -) 2 mg IVPUSH Q6H PRN PRN Reason: ANXIETY Last Admin: 09/27/19 07:07 Dose: 2 mg Melatonin (Melatonin) 10 mg PO HS PRN PRN Reason: INSOMNIA Last Admin: 09/26/19 21:11 Dose: 10 mg Miscellaneous (Duragesic Patch Waste) 1 each TD PRN PRN PRN Reason: PAIN Mupirocin (Bactroban 2% Ointment -) 1 applic TP BID [facility] Last Admin: 09/27/19 09:15 Dose: Not Given Ondansetron HCl (Zofran Injection) 4 mg IVPUSH Q6H PRN PRN Reason: NAUSEA AND/OR VOMITING Last Admin: 09/25/19 10:44 Dose: 4 mg Ondansetron HCl (Zofran Injection) 4 mg IVPUSH Q4H PRN PRN Reason: NAUSEA AND/OR VOMITING Oxycodone HCl (Roxicodone -) 30 mg PO Q8H PRN PRN Reason: PAIN LEVEL 7 - 10 Last Admin: 09/27/19 05:33 Dose: 30 mg Polyethylene Glycol (Miralax (For Daily Use) -) 17 gm PO BID [facility] Last Admin: 09/27/19 09:18 Dose: Not Given Promethazine HCl (Phenergan Injection -) 12.5 mg IVPB Q6H PRN PRN Reason: NAUSEA AND/OR VOMITING Gen: NAD at rest Heart: RRR Lung: decreased breath sounds at the bases Abd: soft, nontender Ext: no edema Laboratory Results - last 24 hr 09/27/19 09/27/19 06:00 06:00 WBC 6.3 RBC 3.28 L Hgb 9.7 L Hct 29.5 L MCV 90.2 MCH 29.7 MCHC 32.9 RDW 14.5 Plt Count 754 H MPV 7.7 Absolute Neuts (auto) 2.8 Neutrophils % 45.6 Lymphocytes % 34.6 D Monocytes % 7.8 Eosinophils % 11.0 H Basophils % 1.0 Nucleated RBC % 0 Sodium 139 Potassium 3.9 Chloride 99 Carbon Dioxide 36 H Anion Gap 4 L BUN 21.1 H Creatinine 0.6 Est GFR (CKD-EPI)AfAm 117.27 Est GFR (CKD-EPI)NonAf 101.18 Random Glucose 93 Calcium 8.8 Phosphorus 3.3 Magnesium 2.0 Total Bilirubin 0.2 AST 17 ALT 23 Alkaline Phosphatase 207 H Total Protein 7.1 Albumin 2.3 L ASSESSMENT AND PLAN: Progressive Kyphoscoliosis s/p T1-T3 Laminectomies/C7-T4 Fusion/T8-S1 Posterior Instrumentation/Arthrodesis Anemia Acute Hypoxic Respiratory Failure Volume Overload Pleural Effusions r/o Pneumonia - continue antibiotics - O2 to keep SpO2 >90% - continue lasix, decrease to daily - monitor urine output, creatinine - keep net negative - pain control - incentive spirometry - PO as tolerated - antiemetics - activity/diet/DVT prophylaxis per surgery - can monitor on telemetry Dr Garza
--- NOTE | 2019-09-27 14:12 | PN ---
Physical Exam: SUBJECTIVE: Patient seen and examined. No acute events overnight. OBJECTIVE: Vital Signs Period Temp Pulse Resp BP Sys/Gallagher Pulse Ox Last 24 Hr 97.2 F-98.4 F 72-90 12-18 81-111/50-74 97-97 GENERAL: The patient is awake, alert, and fully oriented, in no acute distress. HEAD: Normal with no signs of trauma. EYES: PERRL, extraocular movements intact, sclera anicteric, conjunctiva clear. No ptosis. ENT: Ears normal, nares patent, oropharynx clear without exudates, moist mucous membranes. NECK: Trachea midline, full range of motion, supple. LUNGS: Breath sounds equal, clear to auscultation bilaterally, no wheezes, no crackles, no accessory muscle use. HEART: Regular rate and rhythm, S1, S2 without murmur, rub or gallop. ABDOMEN: Soft, nontender, nondistended, normoactive bowel sounds, no guarding, no rebound, no hepatosplenomegaly, no masses. EXTREMITIES: 2+ pulses, warm, well-perfused, no edema. NEUROLOGICAL: Cranial nerves II through XII grossly intact. Normal speech, gait not observed. PSYCH: Normal mood, normal affect. SKIN: Warm, dry, normal turgor, no rashes or lesions noted Laboratory Results - last 24 hr CBC, BMP 09/27/19 06:00 09/27/19 06:00 Active Medications Amitriptyline HCl (Elavil -) 100 mg PO HS [facility] Last Admin: 09/26/19 21:12 Dose: 100 mg Benzocaine/Menthol (Cepacol Lozenge -) 1 each MM PRN PRN PRN Reason: SORE THROAT Last Admin: 09/17/19 17:36 Dose: 1 each Cyclobenzaprine HCl (Flexeril -) 10 mg PO BID [facility] Last Admin: 09/27/19 09:10 Dose: 10 mg Dexamethasone Sodium Phosphate (Decadron Injection -) 4 mg IVPUSH ONCE PRN PRN Reason: NAUSEA AND/OR VOMITING Diphenhydramine HCl (Benadryl -) 50 mg PO BID [facility] Last Admin: 09/27/19 09:11 Dose: 50 mg Furosemide (Lasix Injection -) 40 mg IVPUSH DAILY [facility] Last Admin: 09/27/19 09:11 Dose: 40 mg Gabapentin (Neurontin -) 600 mg PO TID [facility] Last Admin: 09/27/19 13:15 Dose: 600 mg Hydromorphone HCl (Dilaudid -) 8 mg PO Q6H PRN PRN Reason: PAIN 7 - 10; IF OXY NOT WORK Last Admin: 09/27/19 09:10 Dose: 8 mg Lorazepam (Ativan Injection -) 2 mg IVPUSH Q6H PRN PRN Reason: ANXIETY Last Admin: 09/27/19 07:07 Dose: 2 mg Melatonin (Melatonin) 10 mg PO HS PRN PRN Reason: INSOMNIA Last Admin: 09/26/19 21:11 Dose: 10 mg Miscellaneous (Duragesic Patch Waste) 1 each TD PRN PRN PRN Reason: PAIN Mupirocin (Bactroban 2% Ointment -) 1 applic TP BID [facility] Last Admin: 09/27/19 09:15 Dose: Not Given Ondansetron HCl (Zofran Injection) 4 mg IVPUSH Q6H PRN PRN Reason: NAUSEA AND/OR VOMITING Last Admin: 09/25/19 10:44 Dose: 4 mg Ondansetron HCl (Zofran Injection) 4 mg IVPUSH Q4H PRN PRN Reason: NAUSEA AND/OR VOMITING Oxycodone HCl (Roxicodone -) 30 mg PO Q8H PRN PRN Reason: PAIN LEVEL 7 - 10 Last Admin: 09/27/19 13:15 Dose: 30 mg Polyethylene Glycol (Miralax (For Daily Use) -) 17 gm PO BID [facility] Last Admin: 09/27/19 09:18 Dose: Not Given Promethazine HCl (Phenergan Injection -) 12.5 mg IVPB Q6H PRN PRN Reason: NAUSEA AND/OR VOMITING ASSESSMENT/PLAN: Ms. Tafoya is a 59y/o female with multiple (~30) back and spine surgeries, complex global myofascial pain syndrome, recurrent spinal stenosis, multiple sclerosis, and mechanical thoracolumbar instability who presents for spinal surgery. #Complex spinal pain 2/2 mechanical instability and myofascial decompensation s/ p multi-level spinal intervention, POD 7. Planned achilles lengthening procedure with ortho (Shein), delayed due to HFOT and pyrexia. Pt now stable on NC OR delayed per per anesthesiology 2/2 congestion on CXR and pt on lasix. Defer pain control to anesthesiology: Gabapentin 600mg TID Lorazepam 2mg IV Q6H PRN Ambien 5mg PO HS PRN for insomnia Dilaudid 8mg Q6H PO PRN and Oxycodone 30mg Q8H PO PRN for pain Benadryl 50mg PO BID Amytriptyline 100mg PO HS PT eval daily. No bending, lifting (>5 lbs), or twisting for 9-12 months, f/ u 7-10 days after rehab d/c #ARDS likely 2/2 pneumonia - resolved CTA (09/18): Thickening of interstitial septi and diffuse groundglass opacities with pleural effusions suggesting ARDS CXR (09/23): normal aeration L lung, improving R lung. F/u daily CXR for progress Zosyn 3.375gm Q8H per ID (Dr. Bennett) 10 day course completed F/u blood, urine, and sputum cx, no growth. Cont lasix 40mg qd Pt satting well on RA Incentive spirometry #Normocytic anemia Hgb: 10.1, stabilized FOBT: negative Hold off on units for now Cont to monitor closely #Hypomagnesemia M.0 today Cont to monitor daily #DVT ppx SCDs #FEN Monitor Mg and Hb Regular diet #Dispo: Downgrade to tele SNF Visit type - Emergency Visit Emergency Visit: No - New Patient This patient is new to me today: No - Critical Care Critical Care patient: Yes Total Critical Care Time (in minutes): 35 Critical Care Statement: The care of this patient involved high complexity decision making to prevent further life threatening deterioration of the patient 's condition and/or to evaluate & treat vital organ system(s) failure or risk of failure. ATTENDING PHYSICIAN STATEMENT I saw and evaluated the patient. I reviewed the resident's note and discussed the case with the resident. I agree with the resident's findings and plan as documented. SUBJECTIVE: OBJECTIVE: ASSESSMENT AND PLAN:
--- NOTE | 2019-09-27 14:43 | PN ---
Teaching Attending Note Name of Resident: Chanda Graham ATTENDING PHYSICIAN STATEMENT I saw and evaluated the patient. I reviewed the resident's note and discussed the case with the resident. I agree with the resident's findings and plan as documented. SUBJECTIVE: Disappointed that surgery was again cancelled yesterday. Complains of ongoing pain LEs. OBJECTIVE: Fever resolved. Hemodynamically Stable. AAO x 3. Weaned off O2, SpO2 97% on RA Last Vital Signs Temp Pulse Resp BP Pulse Ox 97.6 F 74 12 113/56 L 97 09/27/19 10:00 09/27/19 10:00 09/27/19 10:00 09/27/19 10:00 09/27/19 07:31 Heart - S1, S2, RRR Lungs - decreased air entry at bases. Abdomen - Soft, non-tender. Bowel Sounds normal. Extremities - mild edema, no calf tenderness. Paresis LEs R>L. Altered sensation (chronic). Laboratory Results - last 24 hr 09/27/19 09/27/19 06:00 06:00 WBC 6.3 RBC 3.28 L Hgb 9.7 L Hct 29.5 L MCV 90.2 MCH 29.7 MCHC 32.9 RDW 14.5 Plt Count 754 H MPV 7.7 Absolute Neuts (auto) 2.8 Neutrophils % 45.6 Lymphocytes % 34.6 D Monocytes % 7.8 Eosinophils % 11.0 H Basophils % 1.0 Nucleated RBC % 0 Sodium 139 Potassium 3.9 Chloride 99 Carbon Dioxide 36 H Anion Gap 4 L BUN 21.1 H Creatinine 0.6 Est GFR (CKD-EPI)AfAm 117.27 Est GFR (CKD-EPI)NonAf 101.18 Random Glucose 93 Calcium 8.8 Phosphorus 3.3 Magnesium 2.0 Total Bilirubin 0.2 AST 17 ALT 23 Alkaline Phosphatase 207 H Total Protein 7.1 Albumin 2.3 L Current Medications Generic Name Dose Route Start Last Admin Trade Name Freq PRN Reason Stop Dose Admin Amitriptyline HCl 100 mg 09/10/19 16:26 09/26/19 21:12 Elavil - PO 100 mg HS [facility] Administration Benzocaine/Menthol 1 each 09/17/19 12:19 09/17/19 17:36 Cepacol Lozenge - MM 1 each PRN PRN Administration SORE THROAT Cyclobenzaprine HCl 10 mg 09/21/19 12:45 09/27/19 09:10 Flexeril - PO 10 mg BID [facility] Administration Dexamethasone Sodium Phosphate 4 mg 09/11/19 18:40 Decadron Injection - IVPUSH ONCE PRN NAUSEA AND/OR VOMITING Diphenhydramine HCl 50 mg 09/15/19 10:00 09/27/19 09:11 Benadryl - PO 50 mg BID [facility] Administration Furosemide 40 mg 09/26/19 11:30 09/27/19 09:11 Lasix Injection - IVPUSH 40 mg DAILY [facility] Administration Gabapentin 600 mg 09/13/19 14:00 09/27/19 13:15 Neurontin - PO 600 mg TID [facility] Administration Hydromorphone HCl 8 mg 09/25/19 10:40 09/27/19 09:10 Dilaudid - PO 8 mg Q6H PRN Administration PAIN 7 - 10; IF OXY NOT WORK Lorazepam 2 mg 09/25/19 10:54 09/27/19 07:07 Ativan Injection - IVPUSH 2 mg Q6H PRN Administration ANXIETY Melatonin 10 mg 09/19/19 19:22 09/26/19 21:11 Melatonin PO 10 mg HS PRN Administration INSOMNIA Miscellaneous 1 each 09/21/19 22:19 Duragesic Patch Waste TD PRN PRN PAIN Mupirocin 1 applic 09/15/19 10:45 09/27/19 09:15 Bactroban 2% Ointment - TP Not Given BID [facility] Ondansetron HCl 4 mg 09/09/19 16:47 09/25/19 10:44 Zofran Injection IVPUSH 4 mg Q6H PRN Administration NAUSEA AND/OR VOMITING Ondansetron HCl 4 mg 09/11/19 18:40 Zofran Injection IVPUSH Q4H PRN NAUSEA AND/OR VOMITING Oxycodone HCl 30 mg 09/22/19 10:32 09/27/19 13:15 Roxicodone - PO 30 mg Q8H PRN Administration PAIN LEVEL 7 - 10 Polyethylene Glycol 17 gm 09/17/19 22:00 09/27/19 09:18 Miralax (For Daily Use) - PO Not Given BID [facility] Promethazine HCl 12.5 mg 09/11/19 18:43 Phenergan Injection - IVPB Q6H PRN NAUSEA AND/OR VOMITING Home Medications Medication Instructions Recorded Amitriptyline HCl [Elavil -] 50 mg PO HS 01/16/19 Oxycodone HCl 60 mg PO Q8H 01/16/19 HYDROmorphone [Dilaudid -] 8 mg PO Q6H PRN 03/04/19 Cyclobenzaprine HCl 1 tab PO TID 03/05/19 LORazepam [Ativan] 2 mg PO TID tablet MDD 6mg 03/11/19 Amitriptyline HCl 100 mg PO TID 09/06/19 Alprazolam [Xanax] 0.5 mg PO BID 09/12/19 Fluoxetine HCl 10 mg PO BID 09/12/19 Prednisone 5 mg PO QID 09/12/19 ASSESSMENT AND PLAN: 59 year old female with history of MS, recurrent lumbar spinal stenosis, s/p multiple back surgeries, complex global myofascial pain syndrome, mechanical thoracolumbar instability, admitted for spine surgery. POD 18 s/p 1. Inspection fusion mass (cervical spine). 2. T1, T2, T3 laminectomies. 3. C7 -T4 in situ fusion. 4. Inspection fusion mass (thoracolumbar spine). 5. Posterior instrumentation T8-S1. 6. Posterior arthrodesis T8-S1. 7. Bone allograft. 8. Bone autograft. 9. Complex wound closure 1. 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 Dilaudid PRN for pain management. Continue Dilaudid prn, Elavil, Neurontin, Ativan Daily deferral of Bilateral Achilles tendon lengthening/release - discussed with Dr. Marina, now aiming for surgery on 09/30/19. Further management as per Ortho. 2. Acute Hypoxic respiratory failure and Sepsis secondary to Pneumonia, fluid overload, ARDS - resolved Weaned off high flow, now on 3L via NC. Clinically improving. Fever resolved. CTA Chest neg for PE but shows bilateral interstitial infiltrates + fluid ? Pneumonia +/- ARDS Responding to IV lasix. Repeat CXR shows improved aeration. Blood Cx neg. s/p 10 day course of IV Zosyn for HCAP Monitor respiratory status. 3. Acute Metabolic Encephalopathy secondary to Hypoxia + Sepsis - resolved. AAO x 3, agitation/confusion resolved. Now depressed and intermittently tearful and frustrated due to continued immobility and further delay of Surgery. Resumed on Ativan, which patient takes chronically for anxiety. 4. Anemia - normocytic s/p spinal surgery. No evidence of ongoing blood loss Will monitor H/H and transfuse if necessary. 5. Hypokalemia - resolved s/p repletion. 6. Thrombocytosis, acute, reactive. Will monitor. DVT Px - SCDs
--- NOTE | 2019-09-27 17:00 | PN ---
Progress Note, Physician History of Present Illness: AWAKE IN BED OFFERS NO COMPLAINTS AFEBRILE BREATHING NON-LABORED CXR DECREASED BILATERAL INFILTRATES LEGIONELLA AG NEGATIVE - Current Medication List Current Medications: Active Medications Amitriptyline HCl (Elavil -) 100 mg PO HS [facility] Last Admin: 09/26/19 21:12 Dose: 100 mg Benzocaine/Menthol (Cepacol Lozenge -) 1 each MM PRN PRN PRN Reason: SORE THROAT Last Admin: 09/17/19 17:36 Dose: 1 each Cyclobenzaprine HCl (Flexeril -) 10 mg PO BID [facility] Last Admin: 09/27/19 09:10 Dose: 10 mg Dexamethasone Sodium Phosphate (Decadron Injection -) 4 mg IVPUSH ONCE PRN PRN Reason: NAUSEA AND/OR VOMITING Diphenhydramine HCl (Benadryl -) 50 mg PO BID [facility] Last Admin: 09/27/19 09:11 Dose: 50 mg Furosemide (Lasix Injection -) 40 mg IVPUSH DAILY [facility] Last Admin: 09/27/19 09:11 Dose: 40 mg Gabapentin (Neurontin -) 600 mg PO TID [facility] Last Admin: 09/27/19 13:15 Dose: 600 mg Hydromorphone HCl (Dilaudid -) 8 mg PO Q6H PRN PRN Reason: PAIN 7 - 10; IF OXY NOT WORK Last Admin: 09/27/19 09:10 Dose: 8 mg Lorazepam (Ativan Injection -) 2 mg IVPUSH Q6H PRN PRN Reason: ANXIETY Last Admin: 09/27/19 15:32 Dose: 2 mg Melatonin (Melatonin) 10 mg PO HS PRN PRN Reason: INSOMNIA Last Admin: 09/26/19 21:11 Dose: 10 mg Miscellaneous (Duragesic Patch Waste) 1 each TD PRN PRN PRN Reason: PAIN Mupirocin (Bactroban 2% Ointment -) 1 applic TP BID [facility] Last Admin: 09/27/19 09:15 Dose: Not Given Ondansetron HCl (Zofran Injection) 4 mg IVPUSH Q6H PRN PRN Reason: NAUSEA AND/OR VOMITING Last Admin: 09/25/19 10:44 Dose: 4 mg Ondansetron HCl (Zofran Injection) 4 mg IVPUSH Q4H PRN PRN Reason: NAUSEA AND/OR VOMITING Polyethylene Glycol (Miralax (For Daily Use) -) 17 gm PO BID [facility] Last Admin: 09/27/19 09:18 Dose: Not Given Promethazine HCl (Phenergan Injection -) 12.5 mg IVPB Q6H PRN PRN Reason: NAUSEA AND/OR VOMITING - Objective Vital Signs: Vital Signs Temperature 97.7 F 09/27/19 14:00 Pulse Rate 82 09/27/19 16:00 Respiratory Rate 16 09/27/19 16:00 Blood Pressure 99/54 L 09/27/19 16:00 O2 Sat by Pulse Oximetry (%) 97 09/27/19 07:31 Constitutional: Yes: No Distress Cardiovascular: Yes: Regular Rate and Rhythm, S1, S2 Respiratory: Yes: Rhonchi Gastrointestinal: Yes: Normal Bowel Sounds, Soft. No: Tenderness Extremities: No: Calf Tenderness Labs: CBC, BMP 09/27/19 06:00 09/27/19 06:00 INR, PTT INR 1.16 (0.83-1.09) H 09/25/19 05:30 Assessment/Plan R/O PNEUMONIA/ ARDS CXR IMPROVED UTI S/P LAMINECTOMY COMPLETED 10D COURSE ANTIBIOTICS OBSERVE OFF
[2019-09-27] MEDS ORDERED: PT OWN MED DRAWER 7, Y5N ONE (20:06)
[2019-09-27] MEDS: AMITRIPTYLINE HCL 25 MG TABLET (FP) PO SCH (21:14)
[2019-09-27] MEDS: MELATONIN 5 MG TABLETS PO PRN (21:15)
[2019-09-27] MEDS ORDERED: oxyCODONE HCL 5 MG TABLET PO PRN (21:16)
--- NOTE | 2019-09-27 23:11 | PN ---
Progress Note (short form) - Note Progress Note: In ICU Paraparetic with progressive neurological weakness Has not been able to get out of bed. Neuro wound dry L LE at baseline weak grade 3to 4out of 5 Right LE 1/5 motor sensation diffuse decrease in light touch Sensory stimulation on the Right causes a reflex primitive withdrawl ie stacato flxion hip and knee flexion Fixed equinnus deformity Planned Bakers slide delayed until Monday Recovering from ARDS Still in ICU
[2019-09-28] MEDS: POLYETHYLENE GLYCOL 3350 119 GM BTL PO SCH ×4 (02:32→22:10)
[2019-09-28] MEDS: LORazepam 2 MG/ML SDV VIAL IVPUSH PRN ×4 (03:05→22:00)
[2019-09-28 06:30] LABS: BASO % 1.1 % (0-2.0); EOS % 7.6 % (0-4.5); HEMATOCRIT 28.9 % (32.4-45.2); HEMOGLOBIN 9.7 GM/dL (10.7-15.3); LYMPH % 36.3 % (8-40); MCH 30.5 pg (25.7-33.7); MCHC 33.7 g/dl (32.0-36.0); MEAN CELL VOLUME 90.4 fl (80-96); MEAN PLT VOLUME 7.8 fl (7.5-11.1); MONO % 7.4 % (3.8-10.2); NEUT % 47.6 % (42.8-82.8); PLATELET COUNT 661 K/MM3 (134-434); RDW 14.4 % (11.6-15.6)
[2019-09-28] MEDS: GABAPENTIN 300 MG CAPSULE (FP) PO SCH ×4 (06:33→22:10)
[2019-09-28 07:28] LABS: ALBUMIN 2.4 g/dl (3.4-5.0); BILIRUBIN,TOTAL 0.3 mg/dL (0.2-1); BLOOD UREA NITROGEN 20.2 mg/dL (7-18); CREATININE 0.6 mg/dL (0.55-1.3); MAGNESIUM 2.1 mg/dL (1.8-2.4); PHOSPHOROUS 3.6 mg/dL (2.5-4.9); POTASSIUM 4.2 mmol/L (3.5-5.1)
--- NOTE | 2019-09-28 08:58 | PN ---
Progress Note (short form) - Note Progress Note: PULM/CRITICAL CARE MEDICINE PROGRESS NOTE: SUBJECTIVE: Patient seen and examined in the ICU. Doing well. Breathing comfortable on room air. No events. OBJECTIVE: Current Medications Amitriptyline HCl (Elavil -) 100 mg PO HS [facility] Last Admin: 09/27/19 21:14 Dose: 100 mg Benzocaine/Menthol (Cepacol Lozenge -) 1 each MM PRN PRN PRN Reason: SORE THROAT Last Admin: 09/17/19 17:36 Dose: 1 each Cyclobenzaprine HCl (Flexeril -) 10 mg PO BID [facility] Last Admin: 09/27/19 21:14 Dose: 10 mg Dexamethasone Sodium Phosphate (Decadron Injection -) 4 mg IVPUSH ONCE PRN PRN Reason: NAUSEA AND/OR VOMITING Diphenhydramine HCl (Benadryl -) 50 mg PO BID [facility] Last Admin: 09/27/19 21:13 Dose: 50 mg Furosemide (Lasix Injection -) 40 mg IVPUSH DAILY [facility] Last Admin: 09/27/19 09:11 Dose: 40 mg Gabapentin (Neurontin -) 600 mg PO TID [facility] Last Admin: 09/28/19 06:33 Dose: 600 mg Hydromorphone HCl (Dilaudid -) 8 mg PO Q6H PRN PRN Reason: PAIN 7 - 10; IF OXY NOT WORK Last Admin: 09/28/19 06:32 Dose: 8 mg Lorazepam (Ativan Injection -) 2 mg IVPUSH Q6H PRN PRN Reason: ANXIETY Last Admin: 09/28/19 03:05 Dose: 2 mg Melatonin (Melatonin) 10 mg PO HS PRN PRN Reason: INSOMNIA Last Admin: 09/27/19 21:15 Dose: 10 mg Miscellaneous (Duragesic Patch Waste) 1 each TD PRN PRN PRN Reason: PAIN Mupirocin (Bactroban 2% Ointment -) 1 applic TP BID [facility] Last Admin: 09/27/19 21:13 Dose: Not Given Ondansetron HCl (Zofran Injection) 4 mg IVPUSH Q6H PRN PRN Reason: NAUSEA AND/OR VOMITING Last Admin: 09/25/19 10:44 Dose: 4 mg Ondansetron HCl (Zofran Injection) 4 mg IVPUSH Q4H PRN PRN Reason: NAUSEA AND/OR VOMITING Oxycodone HCl (Roxicodone -) 30 mg PO Q8H PRN PRN Reason: PAIN LEVEL 7 - 10 Last Admin: 09/27/19 23:41 Dose: 30 mg Polyethylene Glycol (Miralax (For Daily Use) -) 17 gm PO BID [facility] Last Admin: 09/28/19 02:32 Dose: Not Given Promethazine HCl (Phenergan Injection -) 12.5 mg IVPB Q6H PRN PRN Reason: NAUSEA AND/OR VOMITING Vital Signs Temp 98.8 F 09/27/19 22:00 Pulse 69 09/28/19 07:50 Resp 14 09/28/19 07:50 BP 100/67 09/28/19 07:50 Pulse Ox 97 09/28/19 07:47 Intake & Output 09/27/19 09/28/19 09/28/19 18:59 06:59 18:59 Intake Total 150 680 Output Total 1100 500 Balance -950 180 Intake: Oral 150 480 Tube Irrigant 200 Output: Urine 1100 500 Morse 1100 500 Other: Voiding Method Indwelling Catheter Indwelling Catheter Indwelling Catheter Bowel Movement No Gen: NAD at rest Heart: RRR Lung: clear Abd: soft, nontender Ext: no edema CBC, BMP 09/28/19 05:15 09/28/19 05:15 ASSESSMENT AND PLAN: Progressive Kyphoscoliosis s/p T1-T3 Laminectomies/C7-T4 Fusion/T8-S1 Posterior Instrumentation/Arthrodesis Anemia Acute Hypoxic Respiratory Failure Volume Overload Pleural Effusions r/o Pneumonia - One more dose of Lasix then stop - OOB - Needs BM - monitor urine output, creatinine - pain control - incentive spirometry - PO as tolerated - antiemetics - activity/diet/DVT prophylaxis per surgery - can monitor on telemetry Hari Delgado Pulm/Critical Care [employer]
[2019-09-28] MEDS: FUROSEMIDE 40 MG/4 ML INJECTABLE VIAL IVPUSH SCH (09:18)
[2019-09-28] MEDS: CYCLOBENZAPRINE HCL 10 MG TABLET (FP) PO SCH ×3 (09:18→22:10)
[2019-09-28] MEDS: diphenhydrAMINE HCL 25 MG CAPSULE (FP) PO SCH ×3 (09:18→22:10)
[2019-09-28] MEDS: MUPIROCIN 2% TOPICAL OINTMENT 22 GM TUBE TP SCH ×2 (09:29→21:15)
--- NOTE | 2019-09-28 10:27 | PN ---
Progress Note (short form) - Note Progress Note: Vitals as per chart No change in general condition PLAN Hopefull TA lengthening Monday Wound attention when returns to the OR
[2019-09-28] MEDS: oxyCODONE HCL 5 MG TABLET PO PRN (11:42)
[2019-09-28] MEDS ORDERED: diazePAM 5 MG TABLET PO ONE (13:22)
--- NOTE | 2019-09-28 16:51 | PN ---
Progress Note (short form) - Note Progress Note: SUBJECTIVE: Feeling okay. Complains of ongoing pain LEs and weakness. No dyspnea. OBJECTIVE: Afebrile, Hemodynamically Stable. AAO x 3. Weaned off O2, SpO2 97% on RA Last Vital Signs Temp Pulse Resp BP Pulse Ox 98.8 F 82 16 94/53 L 97 09/28/19 10:00 09/28/19 10:00 09/28/19 10:00 09/28/19 10:00 09/28/19 07:47 Heart - S1, S2, RRR Lungs - decreased air entry at bases. Abdomen - Soft, non-tender. Bowel Sounds normal. Extremities - mild edema, no calf tenderness. Paresis LEs R>L. Altered sensation (chronic). Laboratory Results - last 24 hr 09/28/19 09/28/19 05:15 05:15 WBC 7.0 RBC 3.20 L Hgb 9.7 L Hct 28.9 L MCV 90.4 MCH 30.5 MCHC 33.7 RDW 14.4 Plt Count 661 H MPV 7.8 Absolute Neuts (auto) 3.3 Neutrophils % 47.6 Lymphocytes % 36.3 Monocytes % 7.4 Eosinophils % 7.6 H Basophils % 1.1 Nucleated RBC % 0 Sodium 137 Potassium 4.2 Chloride 99 Carbon Dioxide 34 H Anion Gap 4 L BUN 20.2 H Creatinine 0.6 Est GFR (CKD-EPI)AfAm 117.27 Est GFR (CKD-EPI)NonAf 101.18 Random Glucose 87 Calcium 9.0 Phosphorus 3.6 Magnesium 2.1 Total Bilirubin 0.3 AST 22 ALT 28 Alkaline Phosphatase 190 H Total Protein 7.0 Albumin 2.4 L Current Medications Generic Name Dose Route Start Last Admin Trade Name Freq PRN Reason Stop Dose Admin Amitriptyline HCl 100 mg 09/10/19 16:26 09/27/19 21:14 Elavil - PO 100 mg HS ARNIE Administration Benzocaine/Menthol 1 each 09/17/19 12:19 09/17/19 17:36 Cepacol Lozenge - MM 1 each PRN PRN Administration SORE THROAT Cyclobenzaprine HCl 10 mg 09/21/19 12:45 09/28/19 09:18 Flexeril - PO 10 mg BID ARNIE Administration Dexamethasone Sodium Phosphate 4 mg 09/11/19 18:40 Decadron Injection - IVPUSH ONCE PRN NAUSEA AND/OR VOMITING Diphenhydramine HCl 50 mg 09/15/19 10:00 09/28/19 09:18 Benadryl - PO 50 mg BID ARNIE Administration Furosemide 40 mg 09/26/19 11:30 09/28/19 09:18 Lasix Injection - IVPUSH 40 mg DAILY ARNIE Administration Gabapentin 600 mg 09/13/19 14:00 09/28/19 13:43 Neurontin - PO 600 mg TID ARNIE Administration Hydromorphone HCl 8 mg 09/25/19 10:40 09/28/19 14:59 Dilaudid - PO 8 mg Q6H PRN Administration PAIN 7 - 10; IF OXY NOT WORK Lorazepam 2 mg 09/25/19 10:54 09/28/19 16:10 Ativan Injection - IVPUSH 2 mg Q6H PRN Administration ANXIETY Melatonin 10 mg 09/19/19 19:22 09/27/19 21:15 Melatonin PO 10 mg HS PRN Administration INSOMNIA Miscellaneous 1 each 09/21/19 22:19 Duragesic Patch Waste TD PRN PRN PAIN Mupirocin 1 applic 09/15/19 10:45 09/28/19 09:29 Bactroban 2% Ointment - TP Not Given BID [facility] Ondansetron HCl 4 mg 09/09/19 16:47 09/25/19 10:44 Zofran Injection IVPUSH 4 mg Q6H PRN Administration NAUSEA AND/OR VOMITING Ondansetron HCl 4 mg 09/11/19 18:40 Zofran Injection IVPUSH Q4H PRN NAUSEA AND/OR VOMITING Oxycodone HCl 30 mg 09/27/19 21:37 09/28/19 11:42 Roxicodone - PO 30 mg Q8H PRN Administration PAIN LEVEL 7 - 10 Polyethylene Glycol 17 gm 09/17/19 22:00 09/28/19 09:28 Miralax (For Daily Use) - PO 17 grams BID ARNIE Administration Promethazine HCl 12.5 mg 09/11/19 18:43 Phenergan Injection - IVPB Q6H PRN NAUSEA AND/OR VOMITING Home Medications Medication Instructions Recorded Amitriptyline HCl [Elavil -] 50 mg PO HS 01/16/19 Oxycodone HCl 60 mg PO Q8H 01/16/19 HYDROmorphone [Dilaudid -] 8 mg PO Q6H PRN 03/04/19 Cyclobenzaprine HCl 1 tab PO TID 03/05/19 LORazepam [Ativan] 2 mg PO TID tablet MDD 6mg 03/11/19 Amitriptyline HCl 100 mg PO TID 09/06/19 Alprazolam [Xanax] 0.5 mg PO BID 09/12/19 Fluoxetine HCl 10 mg PO BID 09/12/19 Prednisone 5 mg PO QID 09/12/19 ASSESSMENT AND PLAN: 59 year old female with history of MS, recurrent lumbar spinal stenosis, s/p multiple back surgeries, complex global myofascial pain syndrome, mechanical thoracolumbar instability, admitted for spine surgery. POD 19 s/p 1. Inspection fusion mass (cervical spine). 2. T1, T2, T3 laminectomies. 3. C7 -T4 in situ fusion. 4. Inspection fusion mass (thoracolumbar spine). 5. Posterior instrumentation T8-S1. 6. Posterior arthrodesis T8-S1. 7. Bone allograft. 8. Bone autograft. 9. Complex wound closure 1. 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 Marina. Further management as per Ortho. 2. Acute Hypoxic respiratory failure and Sepsis secondary to Pneumonia, fluid overload, ARDS - resolved Weaned off high flow, now on 3L via NC. Clinically improving. Fever resolved. CTA Chest neg for PE but shows bilateral interstitial infiltrates + fluid ? Pneumonia +/- ARDS Responding to IV lasix. Repeat CXR shows improved aeration. Blood Cx neg. s/p 10 day course of IV Zosyn for HCAP Monitor respiratory status. 3. Acute Metabolic Encephalopathy secondary to Hypoxia + Sepsis - resolved. AAO x 3, agitation/confusion resolved. Now depressed and intermittently tearful and frustrated due to continued immobility and further delay of Surgery. Resumed on Ativan, which patient takes chronically for anxiety. 4. Anemia - normocytic s/p spinal surgery. No evidence of ongoing blood loss Will monitor H/H and transfuse if necessary. 5. Hypokalemia - resolved s/p repletion. 6. Thrombocytosis, acute, reactive, improving. Will monitor. DVT Px - SCDs Visit type - Emergency Visit Emergency Visit: No - New Patient This patient is new to me today: No - Critical Care Critical Care patient: No - Discharge Referral Referred to [facility] No
[2019-09-28] MEDS: ONDANSETRON 4 MG/2 ML VIAL IVPUSH PRN (17:42)
[2019-09-28] MEDS: ZOLPIDEM TARTRATE 5 MG TABLET PO PRN (21:19)
[2019-09-28] MEDS: AMITRIPTYLINE HCL 25 MG TABLET (FP) PO SCH ×2 (21:20→22:10)
[2019-09-28] MEDS ORDERED: DEXAMETHASONE SOD PHOSPHATE 4 MG/1 ML VIAL IVPUSH PRN (21:50)
[2019-09-28] MEDS ORDERED: BENZOCAINE/MENTH/CETYLPYRD CL 1 EACH LOZENGE MM PRN (21:50)
[2019-09-28] MEDS ORDERED: MELATONIN 5 MG TABLETS PO PRN (21:50)
[2019-09-28] MEDS ORDERED: FENTANYL PATCH WASTE TD PRN (21:50)
[2019-09-28] MEDS ORDERED: ONDANSETRON 4 MG/2 ML VIAL IVPUSH PRN ×2 (21:50)
[2019-09-28] MEDS ORDERED: PROMETHAZINE HCL 25 MG/1 ML VIAL IVPB PRN (21:50)
[2019-09-29] MEDS: GABAPENTIN 300 MG CAPSULE (FP) PO SCH ×3 (05:23→21:33)
[2019-09-29] MEDS: LORazepam 2 MG/ML SDV VIAL IVPUSH PRN ×3 (08:43→21:35)
--- NOTE | 2019-09-29 08:43 | PN ---
Teaching Attending Note Name of Resident: Jennie Conrad ATTENDING PHYSICIAN STATEMENT I saw and evaluated the patient. I reviewed the resident's note and discussed the case with the resident. I agree with the resident's findings and plan as documented. SUBJECTIVE: Tearful again today, feeling judged by nursing for her pain medication use. generally feeling low and not hopeful that the surgery tomorrow with help her mobility. Complains of ongoing pain LEs and weakness. No dyspnea. OBJECTIVE: Afebrile, Hemodynamically Stable. AAO x 3. Weaned off O2, SpO2 96% on RA Last Vital Signs Temp Pulse Resp BP Pulse Ox 98.6 F 71 17 95/53 L 94 L 09/29/19 06:00 09/29/19 06:00 09/29/19 06:00 09/29/19 06:00 09/28/19 22:00 Heart - S1, S2, RRR Lungs - decreased air entry at bases. Abdomen - Soft, non-tender. Bowel Sounds normal. Extremities - mild edema, no calf tenderness. Paresis LEs R>L. Altered sensation (chronic). Current Medications Generic Name Dose Route Start Last Admin Trade Name Freq PRN Reason Stop Dose Admin Amitriptyline HCl 100 mg 09/28/19 22:00 09/28/19 22:10 Elavil - PO Not Given HS ARNIE Benzocaine/Menthol 1 each 09/28/19 21:50 Cepacol Lozenge - MM PRN PRN SORE THROAT Cyclobenzaprine HCl 10 mg 09/28/19 22:00 09/28/19 22:10 Flexeril - PO Not Given BID ARNIE Diphenhydramine HCl 50 mg 09/28/19 22:00 09/28/19 22:10 Benadryl - PO Not Given BID ARNIE Furosemide 40 mg 09/26/19 11:30 09/28/19 09:18 Lasix Injection - IVPUSH 40 mg DAILY ARNIE Administration Gabapentin 600 mg 09/28/19 22:00 09/29/19 05:23 Neurontin - PO 600 mg TID ARNIE Administration Hydromorphone HCl 8 mg 09/28/19 21:50 09/29/19 06:12 Dilaudid - PO 8 mg Q6H PRN Administration PAIN 7 - 10; IF OXY NOT WORK Lorazepam 2 mg 09/28/19 21:50 09/28/19 22:00 Ativan Injection - IVPUSH 2 mg Q6H PRN Administration ANXIETY Melatonin 10 mg 09/28/19 21:50 Melatonin PO HS PRN INSOMNIA Ondansetron HCl 4 mg 09/28/19 21:50 Zofran Injection IVPUSH Q6H PRN NAUSEA AND/OR VOMITING Ondansetron HCl 4 mg 09/28/19 21:50 Zofran Injection IVPUSH Q4H PRN NAUSEA AND/OR VOMITING Oxycodone HCl 30 mg 09/27/19 21:37 09/28/19 11:42 Roxicodone - PO 30 mg Q8H PRN Administration PAIN LEVEL 7 - 10 Polyethylene Glycol 17 gm 09/28/19 22:00 09/28/19 22:10 Miralax (For Daily Use) - PO Not Given BID ARNIE Promethazine HCl 12.5 mg 09/28/19 21:50 Phenergan Injection - IVPB Q6H PRN NAUSEA AND/OR VOMITING Zolpidem Tartrate 10 mg 09/28/19 20:21 09/28/19 21:19 Ambien - PO 10 mg HS PRN Administration INSOMNIA Home Medications Medication Instructions Recorded Amitriptyline HCl [Elavil -] 50 mg PO HS 01/16/19 Oxycodone HCl 60 mg PO Q8H 01/16/19 HYDROmorphone [Dilaudid -] 8 mg PO Q6H PRN 03/04/19 Cyclobenzaprine HCl 1 tab PO TID 03/05/19 LORazepam [Ativan] 2 mg PO TID tablet MDD 6mg 03/11/19 Amitriptyline HCl 100 mg PO TID 09/06/19 Alprazolam [Xanax] 0.5 mg PO BID 09/12/19 Fluoxetine HCl 10 mg PO BID 09/12/19 Prednisone 5 mg PO QID 09/12/19 ASSESSMENT AND PLAN: 59 year old female with history of MS, recurrent lumbar spinal stenosis, s/p multiple back surgeries, complex global myofascial pain syndrome, mechanical thoracolumbar instability, admitted for spine surgery. POD 20 s/p 1. Inspection fusion mass (cervical spine). 2. T1, T2, T3 laminectomies. 3. C7 -T4 in situ fusion. 4. Inspection fusion mass (thoracolumbar spine). 5. Posterior instrumentation T8-S1. 6. Posterior arthrodesis T8-S1. 7. Bone allograft. 8. Bone autograft. 9. Complex wound closure 1. 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 Marina. Further management as per Ortho. 2. Acute Hypoxic respiratory failure and Sepsis secondary to Pneumonia, fluid overload, ARDS - resolved Weaned off oxygen now on RA. Clinically improving. Fever resolved. CTA Chest neg for PE but showed bilateral interstitial infiltrates + fluid ? Pneumonia +/- ARDS Responded well to IV lasix. Will hold further IV lasix and monitor daily weights. s/p 10 day course of IV Zosyn for HCAP. Blood Cx neg. Afebrile, Hemodynamically stable. Monitor respiratory status. 3. Acute Metabolic Encephalopathy secondary to Hypoxia + Sepsis - resolved. AAO x 3, agitation/confusion resolved. Now depressed and intermittently tearful and frustrated due to continued immobility and further delay of Surgery. Resumed on Ativan, which patient takes chronically for anxiety. 4. Anemia - normocytic s/p spinal surgery. No evidence of ongoing blood loss Will monitor H/H and transfuse if necessary. 5. Thrombocytosis, acute, reactive, improving. Will monitor. DVT Px - SCDs
[2019-09-29] MEDS: FUROSEMIDE 40 MG/4 ML INJECTABLE VIAL IVPUSH SCH (08:59)
[2019-09-29] MEDS: POLYETHYLENE GLYCOL 3350 119 GM BTL PO SCH ×2 (09:00→21:47)
[2019-09-29] MEDS: diphenhydrAMINE HCL 25 MG CAPSULE (FP) PO SCH ×2 (09:00→21:32)
[2019-09-29] MEDS: CYCLOBENZAPRINE HCL 10 MG TABLET (FP) PO SCH ×2 (09:00→21:33)
[2019-09-29] MEDS: oxyCODONE HCL 5 MG TABLET PO PRN ×2 (09:27→17:49)
--- NOTE | 2019-09-29 13:47 | PN ---
Physical Exam: SUBJECTIVE: Patient seen and examined at bedside this morning. No acute events overnight. OBJECTIVE: Vital Signs Temperature 97.7 F 09/29/19 13:00 Pulse Rate 82 09/29/19 16:54 Respiratory Rate 17 09/29/19 16:54 Blood Pressure 114/59 L 09/29/19 16:54 O2 Sat by Pulse Oximetry (%) 95 09/29/19 13:00 GENERAL: The patient is awake, alert, and fully oriented, in no acute distress. EYES: PERRLA, EOMI, sclera anicteric, conjunctiva clear. NECK: Trachea midline, full range of motion, supple. LUNGS: Breath sounds equal, clear to auscultation bilaterally. HEART: Regular rate and rhythm, S1, S2 without murmur, rub or gallop. ABDOMEN: Soft, nontender, nondistended, normoactive bowel sounds. EXTREMITIES: 2+ pulses, warm, well-perfused, no edema. NEUROLOGICAL: Cranial nerves II through XII grossly intact. Motor strength upper limb 3/5, lower limb 1/5, sensations intact in all extremities. PSYCH: Normal mood, normal affect. SKIN: Warm, dry, normal turgor Active Medications Generic Name Dose Route Start Last Admin Trade Name Freq PRN Reason Stop Dose Admin Amitriptyline HCl 100 mg 09/28/19 22:00 09/28/19 22:10 Elavil - PO Not Given HS ARNIE Benzocaine/Menthol 1 each 09/28/19 21:50 Cepacol Lozenge - MM PRN PRN SORE THROAT Cyclobenzaprine HCl 10 mg 09/28/19 22:00 09/29/19 09:00 Flexeril - PO 10 mg BID ARNIE Administration Diphenhydramine HCl 50 mg 09/28/19 22:00 09/29/19 09:00 Benadryl - PO 50 mg BID ARNIE Administration Furosemide 40 mg 09/26/19 11:30 09/29/19 08:59 Lasix Injection - IVPUSH 40 mg DAILY ARNIE Administration Gabapentin 600 mg 09/28/19 22:00 09/29/19 05:23 Neurontin - PO 600 mg TID ARNIE Administration Hydromorphone HCl 8 mg 09/28/19 21:50 09/29/19 11:49 Dilaudid - PO 8 mg Q6H PRN Administration PAIN 7 - 10; IF OXY NOT WORK Lorazepam 2 mg 09/28/19 21:50 09/29/19 08:43 Ativan Injection - IVPUSH 2 mg Q6H PRN Administration ANXIETY Melatonin 10 mg 09/28/19 21:50 Melatonin PO HS PRN INSOMNIA Ondansetron HCl 4 mg 09/28/19 21:50 Zofran Injection IVPUSH Q6H PRN NAUSEA AND/OR VOMITING Ondansetron HCl 4 mg 09/28/19 21:50 Zofran Injection IVPUSH Q4H PRN NAUSEA AND/OR VOMITING Oxycodone HCl 30 mg 09/27/19 21:37 09/29/19 09:27 Roxicodone - PO 30 mg Q8H PRN Administration PAIN LEVEL 7 - 10 Polyethylene Glycol 17 gm 09/28/19 22:00 09/29/19 09:00 Miralax (For Daily Use) - PO 17 grams BID ARNIE Administration Promethazine HCl 12.5 mg 09/28/19 21:50 Phenergan Injection - IVPB Q6H PRN NAUSEA AND/OR VOMITING Zolpidem Tartrate 10 mg 09/28/19 20:21 09/28/19 21:19 Ambien - PO 10 mg HS PRN Administration INSOMNIA ASSESSMENT/PLAN: Ms. Tafoya is a 59y/o female with multiple (~30) back and spine surgeries, complex global myofascial pain syndrome, recurrent spinal stenosis, multiple sclerosis, and mechanical thoracolumbar instability who presents for spinal surgery. #Complex spinal pain 2/2 mechanical instability and myofascial decompensation s/ p multi-level spinal intervention, POD 7. Planned achilles lengthening procedure with ortho (Salas), tentative plan tomorrow Defer pain control to anesthesiology: Gabapentin 600mg TID Lorazepam 2mg IV Q6H PRN Ambien 5mg PO HS PRN for insomnia Dilaudid 8mg Q6H PO PRN and Oxycodone 30mg Q8H PO PRN for pain Benadryl 50mg PO BID Amytriptyline 100mg PO HS PT eval daily. No bending, lifting (>5 lbs), or twisting for 9-12 months, f/ u 7-10 days after rehab d/c #ARDS likely 2/2 pneumonia - resolved CTA (09/18): Thickening of interstitial septi and diffuse groundglass opacities with pleural effusions suggesting ARDS CXR (09/23): normal aeration L lung, improving R lung. F/u daily CXR for progress Zosyn 3.375gm Q8H per ID (Dr. Bennett) 10 day course completed F/u blood, urine, and sputum cx, no growth. Cont lasix 40mg qd Pt satting well on RA Incentive spirometry #Normocytic anemia Hgb: 10.1, stabilized FOBT: negative Hold off on units for now Cont to monitor closely #Hypomagnesemia M.0 today Cont to monitor daily #DVT ppx SCDs #FEN Not on any standing fluids Monitor Mg and Hb Regular diet #Dispo: Downgrade to tele SNF Visit type - Emergency Visit Emergency Visit: Yes ED Registration Date: 09/09/19 Care time: The patient presented to the Emergency Department on the above date and was hospitalized for further evaluation of their emergent condition. - New Patient This patient is new to me today: No - Critical Care Critical Care patient: No ATTENDING PHYSICIAN STATEMENT I saw and evaluated the patient. I reviewed the resident's note and discussed the case with the resident. I agree with the resident's findings and plan as documented. SUBJECTIVE: OBJECTIVE: ASSESSMENT AND PLAN:
[2019-09-29] MEDS ORDERED: PT OWN MED DRAWER 7, Y5N ONE (20:52)
[2019-09-29] MEDS: AMITRIPTYLINE HCL 25 MG TABLET (FP) PO SCH (21:32)
[2019-09-29] MEDS: ZOLPIDEM TARTRATE 5 MG TABLET PO PRN (22:36)
[2019-09-30] MEDS: GABAPENTIN 300 MG CAPSULE (FP) PO SCH ×3 (05:46→22:41)
[2019-09-30] MEDS: LORazepam 2 MG/ML SDV VIAL IVPUSH PRN ×3 (06:00→22:58)
--- NOTE | 2019-09-30 07:35 | PN ---
Teaching Attending Note Name of Resident: Chanda Graham ATTENDING PHYSICIAN STATEMENT I saw and evaluated the patient. I reviewed the resident's note and discussed the case with the resident. I agree with the resident's findings and plan as documented. 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 CBC, BMP 09/28/19 05:15 09/28/19 05:15 Active Medications Amitriptyline HCl (Elavil -) 100 mg PO HS [facility] Last Admin: 09/29/19 21:32 Dose: 100 mg Benzocaine/Menthol (Cepacol Lozenge -) 1 each MM PRN PRN PRN Reason: SORE THROAT Cyclobenzaprine HCl (Flexeril -) 10 mg PO BID [facility] Last Admin: 09/29/19 21:33 Dose: 10 mg Diphenhydramine HCl (Benadryl -) 50 mg PO BID [facility] Last Admin: 09/29/19 21:32 Dose: 50 mg Furosemide (Lasix Injection -) 40 mg IVPUSH DAILY [facility] Last Admin: 09/29/19 08:59 Dose: 40 mg Gabapentin (Neurontin -) 600 mg PO TID [facility] Last Admin: 09/30/19 05:46 Dose: 600 mg Hydromorphone HCl (Dilaudid -) 8 mg PO Q6H PRN PRN Reason: PAIN 7 - 10; IF OXY NOT WORK Last Admin: 09/29/19 22:37 Dose: 8 mg Lorazepam (Ativan Injection -) 2 mg IVPUSH Q6H PRN PRN Reason: ANXIETY Last Admin: 09/30/19 06:00 Dose: 2 mg Melatonin (Melatonin) 10 mg PO HS PRN PRN Reason: INSOMNIA Ondansetron HCl (Zofran Injection) 4 mg IVPUSH Q6H PRN PRN Reason: NAUSEA AND/OR VOMITING Ondansetron HCl (Zofran Injection) 4 mg IVPUSH Q4H PRN PRN Reason: NAUSEA AND/OR VOMITING Oxycodone HCl (Roxicodone -) 30 mg PO Q8H PRN PRN Reason: PAIN LEVEL 7 - 10 Last Admin: 09/29/19 17:49 Dose: 30 mg Polyethylene Glycol (Miralax (For Daily Use) -) 17 gm PO BID ARNIE Last Admin: 09/29/19 21:47 Dose: 17 grams Promethazine HCl (Phenergan Injection -) 12.5 mg IVPB Q6H PRN PRN Reason: NAUSEA AND/OR VOMITING Zolpidem Tartrate (Ambien -) 10 mg PO HS PRN PRN Reason: INSOMNIA Last Admin: 09/29/19 22:36 Dose: 10 mg ASSESSMENT AND PLAN: 59 yrs old F with MS history of MS, parapresis, lumbar spinal stenosis, s/p multiple back surgeries, complex global myofascial pain syndrome, mechanical thoracolumbar instability, admitted for spine surgery. POD 22s/p 1. Paraparesis of lower extremities R>L, complex spine pain secondary to mechanical axial instability and myofascial decompensation, Daily deferral of Bilateral Achilles tendon lengthening/release - now aiming for surgery today as per Dr. Marina.Further management as per Ortho. 2. Acute Hypoxic respiratory failure and Sepsis secondary to Pneumonia: improved now off abx 3. Acute Metabolic Encephalopathy secondary to Hypoxia + Sepsis - resolved evaluted by neurology Resumed on Ativan, which patient takes chronically for anxiety. 4. Anemia - normocytic s/p spinal surgery. No evidence of ongoing blood loss Will monitor H/H and transfuse if necessary. 5. Thrombocytosis:reactive, improving. Will monitor. DVT : SCDs
[2019-09-30 08:21] LABS: BASO % 1.3 % (0-2.0); HEMATOCRIT 30.2 % (32.4-45.2); HEMOGLOBIN 9.9 GM/dL (10.7-15.3); LYMPH % 29.6 % (8-40); MCH 29.6 pg (25.7-33.7); MCHC 32.7 g/dl (32.0-36.0); MEAN CELL VOLUME 90.6 fl (80-96); MEAN PLT VOLUME 8.1 fl (7.5-11.1); MONO % 7.8 % (3.8-10.2); NEUT % 52.3 % (42.8-82.8); PLATELET COUNT 595 K/MM3 (134-434); RBC 3.33 M/mm3 (3.60-5.2); RDW 14.7 % (11.6-15.6)
[2019-09-30 08:39] LABS: BLOOD UREA NITROGEN 15.5 mg/dL (7-18); CALCIUM 8.9 mg/dL (8.5-10.1); CREATININE 0.5 mg/dL (0.55-1.3); MAGNESIUM 2.1 mg/dL (1.8-2.4); POTASSIUM 4.4 mmol/L (3.5-5.1)
--- NOTE | 2019-09-30 08:57 | PN ---
Progress Note (short form) - Note Progress Note: Neurology HISTORY OF PRESENT ILLNESS: 59 y/o female with hx of multiple (~30) back and spine surgeries, complex global myofascial pain syndrome, recurrent spinal stenosis, multiple sclerosis, mechanical thoracolumbar instability, admitted for surgical intervention and per notes completed: 1) inspection fusion mass (c-spine), 2) T1-3 laminectomies, 3) C7-T4 in situ fusion, 4) Inspection fusion mass (thoracolumbar spine), 5) posterior instrumentation T8-S1, 6) posteroir arthrodesis T8-S1, 7) bone allograft, 8) bone autograft, 9) complex wound closure (60cm). 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 Complaints of pain and pain mgmt has been consulted. Extensive conversation regarding her MS history which dates back to >10 years and reports previously on BetaSeron but felt no difference. States last MRI brain was 1 year ago, offered repeat which patient would like to defer and reports prior imaging stable and states she will not be able to stay flat and tolerate procedure. She does not want to start on MS meds and would like to focus on spinal mgmt at this time. As outpatient, would advise MRI brain with and without contrast to start with. Weekend notes reviewed, patient to possibly have procedure, george koenig, this morning. Discussed with nurse, patient eager to have procedure completed. Active Medications Amitriptyline HCl (Elavil -) 100 mg PO HS [facility] Last Admin: 09/29/19 21:32 Dose: 100 mg Benzocaine/Menthol (Cepacol Lozenge -) 1 each MM PRN PRN PRN Reason: SORE THROAT Cyclobenzaprine HCl (Flexeril -) 10 mg PO BID [facility] Last Admin: 09/29/19 21:33 Dose: 10 mg Diphenhydramine HCl (Benadryl -) 50 mg PO BID [facility] Last Admin: 09/29/19 21:32 Dose: 50 mg Furosemide (Lasix Injection -) 40 mg IVPUSH DAILY [facility] Last Admin: 09/29/19 08:59 Dose: 40 mg Gabapentin (Neurontin -) 600 mg PO TID [facility] Last Admin: 09/30/19 05:46 Dose: 600 mg Hydromorphone HCl (Dilaudid -) 8 mg PO Q6H PRN PRN Reason: PAIN 7 - 10; IF OXY NOT WORK Last Admin: 09/29/19 22:37 Dose: 8 mg Lorazepam (Ativan Injection -) 2 mg IVPUSH Q6H PRN PRN Reason: ANXIETY Last Admin: 09/30/19 06:00 Dose: 2 mg Melatonin (Melatonin) 10 mg PO HS PRN PRN Reason: INSOMNIA Ondansetron HCl (Zofran Injection) 4 mg IVPUSH Q6H PRN PRN Reason: NAUSEA AND/OR VOMITING Ondansetron HCl (Zofran Injection) 4 mg IVPUSH Q4H PRN PRN Reason: NAUSEA AND/OR VOMITING Oxycodone HCl (Roxicodone -) 30 mg PO Q8H PRN PRN Reason: PAIN LEVEL 7 - 10 Last Admin: 09/29/19 17:49 Dose: 30 mg Polyethylene Glycol (Miralax (For Daily Use) -) 17 gm PO BID [facility] Last Admin: 09/29/19 21:47 Dose: 17 grams Promethazine HCl (Phenergan Injection -) 12.5 mg IVPB Q6H PRN PRN Reason: NAUSEA AND/OR VOMITING Zolpidem Tartrate (Ambien -) 10 mg PO HS PRN PRN Reason: INSOMNIA Last Admin: 09/29/19 22:36 Dose: 10 mg PHYSICAL EXAMINATION Vital Signs Period Temp Pulse Resp BP Sys/Gallagher Pulse Ox Last 24 Hr 97.7 F-98.4 F 73-85 11-20 90-116/44-65 95-98 GENERAL: Awake, alert, and fully oriented, in no acute distress. HEAD: Normal with no signs of trauma. EYES: Pupils equal, round and reactive to light, extraocular movements intact, sclera anicteric, conjunctiva clear. No lid lag. EARS, NOSE, THROAT: Ears normal, nares patent, oropharynx clear without exudates. Moist mucous membranes. NECK: Normal range of motion, supple without lymphadenopathy, JVD, or masses. LUNGS: Breath sounds equal, clear to auscultation bilaterally. No wheezes, and no crackles. No accessory muscle use. HEART: Regular rate and rhythm, normal S1 and S2 without murmur, rub or gallop. ABDOMEN: Soft, nontender, not distended, normoactive bowel sounds, no guarding, no rebound, no masses. No hepatomegaly or splenomegaly. MUSCULOSKELETAL: Normal range of motion at all joints. No bony deformities or tenderness. No CVA tenderness. UPPER EXTREMITIES: 2+ pulses, warm, well-perfused. No cyanosis. No clubbing. Cap refill <2 seconds. No peripheral edema. LOWER EXTREMITIES: 2+ pulses, warm, well-perfused. No calf tenderness. No peripheral edema. NEUROLOGICAL: Cranial nerves II-XII intact. Normal speech. Normal gait. PSYCHIATRIC: Cooperative. Good eye contact. Appropriate mood and affect. SKIN: Warm, dry, normal turgor, no rashes or lesions noted. 2 CBCD WBC 7.0 K/mm3 (4.0-10.0) 09/30/19 07:40 RBC 3.33 M/mm3 (3.60-5.2) L 09/30/19 07:40 Hgb 9.9 GM/dL (10.7-15.3) L 09/30/19 07:40 Hct 30.2 % (32.4-45.2) L 09/30/19 07:40 MCV 90.6 fl (80-96) 09/30/19 07:40 MCHC 32.7 g/dl (32.0-36.0) 09/30/19 07:40 RDW 14.7 % (11.6-15.6) 09/30/19 07:40 Plt Count 595 K/MM3 (134-434) H 09/30/19 07:40 MPV 8.1 fl (7.5-11.1) 09/30/19 07:40 CMP Sodium 137 mmol/L (136-145) 09/30/19 07:40 Potassium 4.4 mmol/L (3.5-5.1) 09/30/19 07:40 Chloride 101 mmol/L (98-107) 09/30/19 07:40 Carbon Dioxide 33 mmol/L (21-32) H 09/30/19 07:40 Anion Gap 3 MMOL/L (8-16) L 09/30/19 07:40 BUN 15.5 mg/dL (7-18) 09/30/19 07:40 Creatinine 0.5 mg/dL (0.55-1.3) L 09/30/19 07:40 Random Glucose 90 mg/dL (74-106) 09/30/19 07:40 Calcium 8.9 mg/dL (8.5-10.1) 09/30/19 07:40 Total Bilirubin 0.3 mg/dL (0.2-1) 09/28/19 05:15 AST 22 U/L (15-37) 09/28/19 05:15 ALT 28 U/L (13-61) 09/28/19 05:15 Alkaline Phosphatase 190 U/L (45-117) H 09/28/19 05:15 Total Protein 7.0 g/dl (6.4-8.2) 09/28/19 05:15 Albumin 2.4 g/dl (3.4-5.0) L 09/28/19 05:15 ASSESSMENT/PLAN: 59 y/o female with hx of multiple (~30) back and spine surgeries, complex global myofascial pain syndrome, recurrent spinal stenosis, multiple sclerosis, mechanical thoracolumbar instability, POD #0 s/p 1) inspection fusion mass (c- spine), 2) T1-3 laminectomies, 3) C7-T4 in situ fusion, 4) Inspection fusion mass (thoracolumbar spine), 5) posterior instrumentation T8-S1, 6) posteroir arthrodesis T8-S1, 7) bone allograft, 8) bone autograft, 9) complex wound closure (60cm). 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 Complaints of pain and pain mgmt has been consulted. Extensive conversation regarding her MS history which dates back to > 10 years and reports previously on BetaSeron but felt no difference. States last MRI brain was 1 year ago, offered repeat which patient would like to defer and reports prior imaging stable and states she will not be able to stay flat and tolerate procedure. She does not want to start on MS meds and would like to focus on spinal mgmt at this time. As outpatient, would advise MRI brain with and without contrast to start with. Was being plaaned for ruff slide bilterally for feet but with temperature spikes now afebrile. Defer to orthopedist and patient's infectious status. Patient downgraded to telemetry from ICU monitoring. We'll have to reevaluate ambulation status at that point. Discussed with nurse, neurologically stable
[2019-09-30] MEDS: diphenhydrAMINE HCL 25 MG CAPSULE (FP) PO SCH ×2 (10:09→22:42)
[2019-09-30] MEDS: CYCLOBENZAPRINE HCL 10 MG TABLET (FP) PO SCH ×2 (10:09→22:42)
[2019-09-30] MEDS: FUROSEMIDE 40 MG/4 ML INJECTABLE VIAL IVPUSH SCH (10:09)
[2019-09-30] MEDS: POLYETHYLENE GLYCOL 3350 119 GM BTL PO SCH ×2 (10:10→23:00)
[2019-09-30] MEDS ORDERED: MIDAZOLAM HCL 2 MG/2 ML SINGLE DOSE VIAL ONE ×4 (11:23→12:10)
[2019-09-30] MEDS ORDERED: GLYCOPYRROLATE 0.2 MG/1 ML VIAL ONE (11:23)
[2019-09-30] MEDS ORDERED: KETAMINE HCL 200 MG/20 ML VIAL ONE (11:25)
[2019-09-30] MEDS ORDERED: PROPOFOL 20 ML ONE (12:19)
[2019-09-30] MEDS ORDERED: ceFAZolin SODIUM 1 GM VIAL IVPB ONE (12:26)
--- NOTE | 2019-09-30 13:32 | PN ---
Progress Note (short form) - Note Progress Note: 59F s/p bilateral Achilles tendon lengthening POD #0. -Pain control. Incentive spirometry. -Nursing care: fastidious avoidance of decubitus ulcers; log roll/place on wedge pillows every 2 hours; rolled up towels under the ankles to offload the heels. -DVT PPx. -Incentive spirometry q15 min. -PT/OT/Rehab, OOB. -WBAT B/L LE. -No bending, lifting (>5 lbs), or twisting for 9-12 months. -Care per ICU & medical hospitalist team. -Discharge planning: Rehab; f/u 7-10 days after discharge from [facility] office; call for appointment; ; Will require special needs for paraparesis. -Will order B/L custom AFO splints. -Will follow. Shayan Marina MD (Orthopaedic Surgery).
--- NOTE | 2019-09-30 13:34 | OP ---
Operative Note - Note: Operative Date: 09/30/19 Pre-Operative Diagnosis: B/L Achilles tendon contractures Operation: B/L percutaneous Achilles tenotomies (Aguilar slide) Post-Operative Diagnosis: Same as Pre-op Surgeon: Shayan Marina Gps Field Data Collector: Humble Marina Anesthesiologist/E [employer] ARCHITECT: Rosalie Green Anesthesia: General Estimated Blood Loss (mls): 0 Fluid Volume Replaced (mls): 300 (Crystalloid) Operative Report Dictated: Yes
[2019-09-30] MEDS ORDERED: HYDROmorphone HCl 2 MG/ML VIAL IVPUSH PRN (13:38)
[2019-09-30] MEDS: HYDROmorphone HCl 2 MG/ML VIAL IVPUSH PRN ×5 (13:40→16:06)
--- NOTE | 2019-09-30 13:43 | PN ---
Physical Exam: SUBJECTIVE: Patient seen and examined. No acute events overnight. OBJECTIVE: Vital Signs Period Temp Pulse Resp BP Sys/Gallagher Pulse Ox Last 24 Hr 98 F-98.4 F 72-86 16-20 90-119/44-65 95-100 GENERAL: The patient is awake, alert, and fully oriented, in no acute distress. EYES: PERRLA, EOMI, sclera anicteric, conjunctiva clear. NECK: Trachea midline, full range of motion, supple. LUNGS: Breath sounds equal, clear to auscultation bilaterally. HEART: Regular rate and rhythm, S1, S2 without murmur, rub or gallop. ABDOMEN: Soft, nontender, nondistended, normoactive bowel sounds. EXTREMITIES: 2+ pulses, warm, well-perfused, no edema. NEUROLOGICAL: Cranial nerves II through XII grossly intact. Motor strength upper limb 3/5, lower limb 1/5, sensations intact in all extremities. PSYCH: Normal mood, normal affect. SKIN: Warm, dry, normal turgor Laboratory Results - last 24 hr 09/30/19 09/30/19 07:40 07:40 WBC 7.0 RBC 3.33 L Hgb 9.9 L Hct 30.2 L MCV 90.6 MCH 29.6 MCHC 32.7 RDW 14.7 Plt Count 595 H MPV 8.1 Absolute Neuts (auto) 3.7 Neutrophils % 52.3 Lymphocytes % 29.6 Monocytes % 7.8 Eosinophils % 9.0 H Basophils % 1.3 Nucleated RBC % 0 Sodium 137 Potassium 4.4 Chloride 101 Carbon Dioxide 33 H Anion Gap 3 L BUN 15.5 Creatinine 0.5 L Est GFR (CKD-EPI)AfAm 124.52 Est GFR (CKD-EPI)NonAf 107.44 Random Glucose 90 Calcium 8.9 Magnesium 2.1 Active Medications Amitriptyline HCl (Elavil -) 100 mg PO HS [facility] Last Admin: 09/29/19 21:32 Dose: 100 mg Benzocaine/Menthol (Cepacol Lozenge -) 1 each MM PRN PRN PRN Reason: SORE THROAT Chlorhexidine Gluconate (Hibiclens For Decolonization -) 1 applic TP HS [facility] Cyclobenzaprine HCl (Flexeril -) 10 mg PO BID [facility] Last Admin: 09/30/19 10:09 Dose: Not Given Diphenhydramine HCl (Benadryl -) 50 mg PO BID [facility] Last Admin: 09/30/19 10:09 Dose: Not Given Furosemide (Lasix Injection -) 40 mg IVPUSH DAILY [facility] Last Admin: 09/30/19 10:09 Dose: 40 mg Gabapentin (Neurontin -) 600 mg PO TID [facility] Last Admin: 09/30/19 05:46 Dose: 600 mg Hydromorphone HCl (Dilaudid -) 8 mg PO Q6H PRN PRN Reason: PAIN 7 - 10; IF OXY NOT WORK Last Admin: 09/29/19 22:37 Dose: 8 mg Hydromorphone HCl (Dilaudid Vial -) 0.5 mg IVPUSH [id number] PRN PRN Reason: PAIN LEVEL 7 - 10 Hydromorphone HCl (Dilaudid Vial -) 0.25 mg IVPUSH [id number] PRN PRN Reason: PAIN LEVEL 4 - 6 Lactated Ringer's (Lactated Ringers Solution) 1,000 mls @ 75 mls/hr IV ASDIR [facility] Lorazepam (Ativan Injection -) 2 mg IVPUSH Q6H PRN PRN Reason: ANXIETY Last Admin: 09/30/19 06:00 Dose: 2 mg Melatonin (Melatonin) 10 mg PO HS PRN PRN Reason: INSOMNIA Mupirocin (Bactroban Ointment (For Decolonization) -) 1 applic NS BID [facility] Stop: 10/05/19 21:59 Ondansetron HCl (Zofran Injection) 4 mg IVPUSH Q6H PRN PRN Reason: NAUSEA AND/OR VOMITING Ondansetron HCl (Zofran Injection) 4 mg IVPUSH Q4H PRN PRN Reason: NAUSEA AND/OR VOMITING Oxycodone HCl (Roxicodone -) 30 mg PO Q8H PRN PRN Reason: PAIN LEVEL 7 - 10 Last Admin: 09/29/19 17:49 Dose: 30 mg Polyethylene Glycol (Miralax (For Daily Use) -) 17 gm PO BID [facility] Last Admin: 09/30/19 10:10 Dose: Not Given Promethazine HCl (Phenergan Injection -) 12.5 mg IVPB Q6H PRN PRN Reason: NAUSEA AND/OR VOMITING Zolpidem Tartrate (Ambien -) 10 mg PO HS PRN PRN Reason: INSOMNIA Last Admin: 09/29/19 22:36 Dose: 10 mg ASSESSMENT/PLAN: Ms. Tafoya is a 59y/o female with multiple (~30) back and spine surgeries, complex global myofascial pain syndrome, recurrent spinal stenosis, multiple sclerosis, and mechanical thoracolumbar instability who presents for spinal surgery. #Complex spinal pain 2/2 mechanical instability and myofascial decompensation s/ p multi-level spinal intervention, POD 20. Planned achilles lengthening procedure with ortho ([facility]), tentative plan today. Defer pain control to anesthesiology: Gabapentin 600mg TID Lorazepam 2mg IV Q6H PRN Ambien 5mg PO HS PRN for insomnia Dilaudid 8mg Q6H PO PRN and Oxycodone 30mg Q8H PO PRN for pain Benadryl 50mg PO BID Amytriptyline 100mg PO HS PT eval daily. No bending, lifting (>5 lbs), or twisting for 9-12 months, f/ u 7-10 days after rehab d/c #ARDS likely 2/2 pneumonia - resolved CTA (09/18): Thickening of interstitial septi and diffuse groundglass opacities with pleural effusions suggesting ARDS CXR (09/23): normal aeration L lung, improving R lung. F/u daily CXR for progress Zosyn 3.375gm Q8H per ID (Dr. Bennett) 10 day course completed F/u blood, urine, and sputum cx, no growth. Cont lasix 40mg qd Pt satting well on RA Incentive spirometry #Normocytic anemia Hgb: 10.1, stabilized FOBT: negative Hold off on units for now Cont to monitor closely #Hypomagnesemia M.0 today Cont to monitor daily #DVT ppx SCDs #FEN Not on any standing fluids Monitor Mg and Hb Regular diet #Dispo: Downgrade to tele SNF Visit type - Emergency Visit Emergency Visit: No - New Patient This patient is new to me today: No - Critical Care Critical Care patient: Yes Total Critical Care Time (in minutes): 45 Critical Care Statement: The care of this patient involved high complexity decision making to prevent further life threatening deterioration of the patient 's condition and/or to evaluate & treat vital organ system(s) failure or risk of failure. ATTENDING PHYSICIAN STATEMENT I saw and evaluated the patient. I reviewed the resident's note and discussed the case with the resident. I agree with the resident's findings and plan as documented. SUBJECTIVE: OBJECTIVE: ASSESSMENT AND PLAN:
[2019-09-30] MEDS ORDERED: ONDANSETRON 4 MG/2 ML VIAL IVPUSH PRN ×2 (13:46)
[2019-09-30] MEDS ORDERED: BENZOCAINE/MENTH/CETYLPYRD CL 1 EACH LOZENGE MM PRN (13:46)
[2019-09-30] MEDS ORDERED: MELATONIN 5 MG TABLETS PO PRN (13:46)
[2019-09-30] MEDS ORDERED: ZOLPIDEM TARTRATE 5 MG TABLET PO PRN (13:46)
[2019-09-30] MEDS ORDERED: PROMETHAZINE HCL 25 MG/1 ML VIAL IVPB PRN (13:46)
[2019-09-30] MEDS ORDERED: LORazepam 2 MG/ML SDV VIAL ONE (14:17)
[2019-09-30] MEDS: LACTATED RINGERS SOLUTION 1,000 ML IV SCH (16:15)
--- NOTE | 2019-09-30 18:26 | PN ---
Physical Exam: SUBJECTIVE: Patient seen and examined. Complaining of charan headache. Denies chest pain, SOB. OBJECTIVE: Vital Signs Period Temp Pulse Resp BP Sys/Gallagher Pulse Ox Last 24 Hr 98 F-98.4 F 71-86 11-20 90-119/44-73 95-100 GENERAL: The patient is awake, alert, and fully oriented, in mild distress HEAD: Normal with no signs of trauma. LUNGS: Breath sounds equal, clear to auscultation bilaterally, no wheezes, no crackles, no accessory muscle use. HEART: Regular rate and rhythm, S1, S2 without murmur, rub or gallop. ABDOMEN: Soft, nontender, nondistended, normoactive bowel sounds, no guarding, no rebound, no hepatosplenomegaly, no masses. EXTREMITIES: BLE wrapped. Warm NEUROLOGICAL: AOx3. Normal speech Laboratory Results - last 24 hr 09/30/19 09/30/19 07:40 07:40 WBC 7.0 RBC 3.33 L Hgb 9.9 L Hct 30.2 L MCV 90.6 MCH 29.6 MCHC 32.7 RDW 14.7 Plt Count 595 H MPV 8.1 Absolute Neuts (auto) 3.7 Neutrophils % 52.3 Lymphocytes % 29.6 Monocytes % 7.8 Eosinophils % 9.0 H Basophils % 1.3 Nucleated RBC % 0 Sodium 137 Potassium 4.4 Chloride 101 Carbon Dioxide 33 H Anion Gap 3 L BUN 15.5 Creatinine 0.5 L Est GFR (CKD-EPI)AfAm 124.52 Est GFR (CKD-EPI)NonAf 107.44 Random Glucose 90 Calcium 8.9 Magnesium 2.1 Active Medications Generic Name Dose Route Start Last Admin Trade Name Freq PRN Reason Stop Dose Admin Amitriptyline HCl 100 mg 09/30/19 22:00 Elavil - PO HS [facility] Benzocaine/Menthol 1 each 09/30/19 13:46 Cepacol Lozenge - MM PRN PRN SORE THROAT Chlorhexidine Gluconate 1 applic 09/30/19 22:00 Hibiclens For Decolonization - TP HS [facility] Cyclobenzaprine HCl 10 mg 09/30/19 22:00 Flexeril - PO BID [facility] Diphenhydramine HCl 50 mg 09/30/19 22:00 Benadryl - PO BID [facility] Furosemide 40 mg 10/01/19 10:00 Lasix Injection - IVPUSH DAILY [facility] Gabapentin 600 mg 09/30/19 14:00 09/30/19 16:04 Neurontin - PO Not Given TID [facility] Hydromorphone HCl 0.25 mg 09/30/19 13:38 Dilaudid Vial - IVPUSH [id number] PRN PAIN LEVEL 4 - 6 Hydromorphone HCl 8 mg 09/30/19 13:46 Dilaudid - PO Q6H PRN PAIN 7 - 10; IF OXY NOT WORK Lactated Ringer's 1,000 mls @ 75 mls/hr 09/30/19 13:45 09/30/19 16:15 Lactated Ringers Solution IV 75 mls/hr ASDIR [facility] Administration Lorazepam 2 mg 09/30/19 13:46 09/30/19 16:07 Ativan Injection - IVPUSH 2 mg Q6H PRN Administration ANXIETY Melatonin 10 mg 09/30/19 13:46 Melatonin PO HS PRN INSOMNIA Mupirocin 1 applic 09/30/19 22:00 Bactroban Ointment (For Decolonization) - NS 10/05/19 21:59 BID [facility] Ondansetron HCl 4 mg 09/30/19 13:46 Zofran Injection IVPUSH Q6H PRN NAUSEA AND/OR VOMITING Ondansetron HCl 4 mg 09/30/19 13:46 Zofran Injection IVPUSH Q4H PRN NAUSEA AND/OR VOMITING Oxycodone HCl 30 mg 09/30/19 13:46 Roxicodone - PO Q8H PRN PAIN LEVEL 7 - 10 Polyethylene Glycol 17 gm 09/30/19 22:00 Miralax (For Daily Use) - PO BID [facility] Promethazine HCl 12.5 mg 09/30/19 13:46 Phenergan Injection - IVPB Q6H PRN NAUSEA AND/OR VOMITING Zolpidem Tartrate 10 mg 09/30/19 13:46 Ambien - PO HS PRN INSOMNIA ASSESSMENT/PLAN: Nava Tafoya is a 59yF with PMHx with multiple (~30) back and spine surgeries, complex global myofascial pain syndrome, recurrent spinal stenosis, multiple sclerosis, and mechanical thoracolumbar instability presenting s/p Bakers Slide procedure POD#0 #Respiratory - ARDS resolved - CTA (09/18): Thickening of interstitial septi and diffuse groundglass opacities with pleural effusions suggesting ARDS - CXR (09/28): mild congestion - 4L NC, wean as tolerated - Incentive spirometry #Neuro - Pain : Gabapentin, Lorazepam, melatonin, Ambien, Dilaudid, Oxycodone, Benadryl , Amytriptyline, Flexeril - Nausea : Promethazine and Zofran #Ortho - Aguilar's slide procedure - PT - log roll/place on wedge pillows every 2 hours; rolled up towels under the ankles to offload the heels #Cards - continue Lasix #ID - afebrile - blood, urine, and sputum cx, no growth - Zosyn x10d completed - ID on board #GI - elevated Alk Phos 190 - regular diet as tolerated # - I/O - IV fluids #Heme - anemia, thrombocytosis - stable Hgb 9.7 to 9.9 - plt 595 - serial H&H #FEN - LR @75mL/hr - no electrolyte disturbances - regular diet #PPX - SCDs - no GI ppx #Dispo - ICU Visit type - Emergency Visit Emergency Visit: Yes ED Registration Date: 09/09/19 Care time: The patient presented to the Emergency Department on the above date and was hospitalized for further evaluation of their emergent condition. - New Patient This patient is new to me today: No - Critical Care Critical Care patient: Yes Total Critical Care Time (in minutes): 35 Critical Care Statement: The care of this patient involved high complexity decision making to prevent further life threatening deterioration of the patient 's condition and/or to evaluate & treat vital organ system(s) failure or risk of failure. ATTENDING PHYSICIAN STATEMENT I saw and evaluated the patient. I reviewed the resident's note and discussed the case with the resident. I agree with the resident's findings and plan as documented. SUBJECTIVE: OBJECTIVE: ASSESSMENT AND PLAN:
--- NOTE | 2019-09-30 18:28 | OP ---
DATE OF OPERATION: DATE OF DICTATION: 09/30/2019 SURGEON: Shayan Marina MD OIL HEATER INSTALLER: Humble Marina MD PREOPERATIVE DIAGNOSIS: Fixed equinus deformities, neuromuscular imbalance, both lower extremities. POSTOPERATIVE DIAGNOSIS: Fixed equinus deformities, neuromuscular imbalance, both lower extremities. OPERATION PERFORMED: Bilateral Aguilar slide tendo-Achilles lengthening. ANESTHESIA: General with ketamine. OPERATION DETAILS: Patient correctly identified. Brought to the operating room from the ICU. Both lower extremities were prepped and draped in the routine manner with Betadine scrub solution, wiped off with alcohol, DuraPrep applied. A free draped applied to both lower extremities. In the supine position, in a figure-4 position, the tendo-Achilles was carefully palpated, and at the level of the muscle tendon junction from the medial side, a 10 blade knife was inserted parallel to the tibia, and 90 degrees to this at the same time dorsiflexing the hindfoot brought about release of the tendo-Achilles to a very comfortable plantigrade position. This was performed on both the right and left hand side. No. 3-0 nylon sutures were inserted into the skin. Both lower extremities were placed into bilateral below-knee splints with extra padding. Plan is for ankle-foot orthosis to be placed to enable shoe wear so the patient can stand plantigrade. Shayan Marina MD [id number]
[2019-09-30] MEDS ORDERED: AMITRIPTYLINE HCL 25 MG TABLET (FP) PO SCH (22:00)
[2019-09-30] MEDS ORDERED: CHLORHEXIDINE GLUCONATE 4% CLEANSER FOR DECOLONIZATION TP SCH (22:00)
[2019-09-30] MEDS ORDERED: PT OWN MED DRAWER 7, Y5N ONE (22:38)
[2019-09-30] MEDS: MUPIROCIN 2% TOPICAL OINTMENT FOR DECOLONIZATION NS SCH (22:41)
[2019-10-01] MEDS: LACTATED RINGERS SOLUTION 1,000 ML IV SCH ×2 (00:35→14:27)
[2019-10-01] MEDS: oxyCODONE HCL 5 MG TABLET PO PRN ×2 (01:25→12:10)
[2019-10-01] MEDS: LORazepam 2 MG/ML SDV VIAL IVPUSH PRN ×4 (04:05→22:56)
[2019-10-01] MEDS: GABAPENTIN 300 MG CAPSULE (FP) PO SCH ×3 (06:18→22:05)
[2019-10-01 06:22] LABS: HEMATOCRIT 27.1 % (32.4-45.2); HEMOGLOBIN 8.9 GM/dL (10.7-15.3); MCH 29.6 pg (25.7-33.7); MCHC 32.8 g/dl (32.0-36.0); MEAN CELL VOLUME 90.2 fl (80-96); MEAN PLT VOLUME 8.2 fl (7.5-11.1); PLATELET COUNT 587 K/MM3 (134-434); RBC 3.01 M/mm3 (3.60-5.2); RDW 14.4 % (11.6-15.6); WHITE BLOOD COUNT 6.1 K/mm3 (4.0-10.0)
[2019-10-01 06:58] LABS: BLOOD UREA NITROGEN 15.3 mg/dL (7-18); CALCIUM 8.8 mg/dL (8.5-10.1); CREATININE 0.5 mg/dL (0.55-1.3); MAGNESIUM 2.1 mg/dL (1.8-2.4); PHOSPHOROUS 4.1 mg/dL (2.5-4.9); POTASSIUM 4.6 mmol/L (3.5-5.1)
--- NOTE | 2019-10-01 08:07 | PN ---
Physical Exam: SUBJECTIVE: Patient seen and examined by the bedside. She has not had a BM, but has passed gas overnight and is tolerating regular diet. Complains of pain in her back. OBJECTIVE: Vital Signs Period Temp Pulse Resp BP Sys/Gallagher Pulse Ox Last 24 Hr 98 F-98.4 F 70-86 11- 93-119/51-79 99-100 GENERAL: The patient is AOx3, and fully oriented, pain well controlled HEAD: Normal with no signs of trauma. EYES: PERRL, extraocular movements intact, sclera anicteric, conjunctiva clear. No ptosis. LUNGS: Breath sounds equal, clear to auscultation bilaterally, no wheezes, no crackles, no accessory muscle use. HEART: Regular rate and rhythm, S1, S2 without murmur, rub or gallop. ABDOMEN: Soft, nontender, nondistended, normoactive bowel sounds, no guarding, no rebound, no hepatosplenomegaly, no masses. EXTREMITIES: 2+ pulses, warm, well-perfused, no edema. NEUROLOGICAL: Motor strength upper limb 3/5, lower limb bandaged, sensations intact Laboratory Results - last 24 hr 09/30/19 09/30/19 10/01/19 07:40 07:40 05:40 WBC 7.0 6.1 RBC 3.33 L 3.01 L Hgb 9.9 L 8.9 L Hct 30.2 L 27.1 L MCV 90.6 90.2 MCH 29.6 29.6 MCHC 32.7 32.8 RDW 14.7 14.4 Plt Count 595 H 587 H MPV 8.1 8.2 Absolute Neuts (auto) 3.7 Neutrophils % 52.3 Lymphocytes % 29.6 Monocytes % 7.8 Eosinophils % 9.0 H Basophils % 1.3 Nucleated RBC % 0 Sodium 137 Potassium 4.4 Chloride 101 Carbon Dioxide 33 H Anion Gap 3 L BUN 15.5 Creatinine 0.5 L Est GFR (CKD-EPI)AfAm 124.52 Est GFR (CKD-EPI)NonAf 107.44 Random Glucose 90 Calcium 8.9 Phosphorus Magnesium 2.1 10/01/19 05:40 WBC RBC Hgb Hct MCV MCH MCHC RDW Plt Count MPV Absolute Neuts (auto) Neutrophils % Lymphocytes % Monocytes % Eosinophils % Basophils % Nucleated RBC % Sodium 137 Potassium 4.6 Chloride 101 Carbon Dioxide 33 H Anion Gap 4 L BUN 15.3 Creatinine 0.5 L Est GFR (CKD-EPI)AfAm 124.52 Est GFR (CKD-EPI)NonAf 107.44 Random Glucose 84 Calcium 8.8 Phosphorus 4.1 Magnesium 2.1 Active Medications Generic Name Dose Route Start Last Admin Trade Name Freq PRN Reason Stop Dose Admin Amitriptyline HCl 100 mg 09/30/19 22:00 09/30/19 22:43 Elavil - PO 100 mg HS ARNIE Administration Benzocaine/Menthol 1 each 09/30/19 13:46 Cepacol Lozenge - MM PRN PRN SORE THROAT Chlorhexidine Gluconate 1 applic 09/30/19 22:00 10/01/19 00:35 Hibiclens For Decolonization - TP 1 applic HS ARNIE Administration Cyclobenzaprine HCl 10 mg 09/30/19 22:00 09/30/19 22:42 Flexeril - PO 10 mg BID ARNIE Administration Diphenhydramine HCl 50 mg 09/30/19 22:00 09/30/19 22:42 Benadryl - PO 50 mg BID ARNIE Administration Furosemide 40 mg 10/01/19 10:00 Lasix Injection - IVPUSH DAILY ARNIE Gabapentin 600 mg 09/30/19 14:00 10/01/19 06:18 Neurontin - PO 600 mg TID ARNIE Administration Hydromorphone HCl 0.25 mg 09/30/19 13:38 Dilaudid Vial - IVPUSH [id number] PRN PAIN LEVEL 4 - 6 Hydromorphone HCl 8 mg 09/30/19 13:46 10/01/19 06:18 Dilaudid - PO 8 mg Q6H PRN Administration PAIN 7 - 10; IF OXY NOT WORK Lactated Ringer's 1,000 mls @ 75 mls/hr 09/30/19 13:45 10/01/19 00:35 Lactated Ringers Solution IV 75 mls/hr ASDIR ARNIE Administration Lorazepam 2 mg 09/30/19 13:46 10/01/19 04:05 Ativan Injection - IVPUSH 2 mg Q6H PRN Administration ANXIETY Melatonin 10 mg 09/30/19 13:46 Melatonin PO HS PRN INSOMNIA Mupirocin 1 applic 09/30/19 22:00 09/30/19 22:41 Bactroban Ointment (For Decolonization) - NS 10/05/19 21:59 1 applic BID ARNIE Administration Ondansetron HCl 4 mg 09/30/19 13:46 Zofran Injection IVPUSH Q6H PRN NAUSEA AND/OR VOMITING Ondansetron HCl 4 mg 09/30/19 13:46 Zofran Injection IVPUSH Q4H PRN NAUSEA AND/OR VOMITING Oxycodone HCl 30 mg 09/30/19 13:46 10/01/19 01:25 Roxicodone - PO 30 mg Q8H PRN Administration PAIN LEVEL 7 - 10 Polyethylene Glycol 17 gm 09/30/19 22:00 09/30/19 23:00 Miralax (For Daily Use) - PO 17 grams BID ARNIE Administration Promethazine HCl 12.5 mg 09/30/19 13:46 Phenergan Injection - IVPB Q6H PRN NAUSEA AND/OR VOMITING Zolpidem Tartrate 10 mg 09/30/19 13:46 09/30/19 22:43 Ambien - PO 10 mg HS PRN Administration INSOMNIA ASSESSMENT/PLAN: This is a 59 YO F with PMH significant for MS, recurrent spinal stenosis, multiple spinal surgeries. POD #20 for posterior thoracic decompression, cervicothoracic in situ fusion, and revision thoracolumbar instrumented fusion. s/p Bakers Slide procedure POD #1 #Respiratory - ARDS resolved - CXR (09/28): mild congestion - Incentive spirometry #Neuro - Pain : Gabapentin 600mg PO TID, Lorazepam 2mg IV Q6H, Ambien 10mg PO HS PRN, Dilaudid 8mg PO Q6H PRN, Oxycodone 30mg Q8H PRN - Benadryl, Amytriptyline, Flexeril - Nausea : Promethazine and Zofran #Ortho - Aguilar's slide procedure - PT - log roll/place on wedge pillows every 2 hours; rolled up towels under the ankles to offload the heels #Cardio - Lasix 40mg IV OD #ID - Afebrile - Zosyn x10d completed #GI - elevated Alk Phos 190 (09/28) #Heme - Hgb 9.7 -> 9.9 -> 8.9 - CBC ordered for 6PM #FEN - LR @75mL/hr - Regular diet #PPX - SCDs #Dispo - ICU ATTENDING PHYSICIAN STATEMENT I saw and evaluated the patient. I reviewed the resident's note and discussed the case with the resident. I agree with the resident's findings and plan as documented. SUBJECTIVE: OBJECTIVE: ASSESSMENT AND PLAN:
--- NOTE | 2019-10-01 08:49 | PN ---
Progress Note (short form) - Note Progress Note: Neurology HISTORY OF PRESENT ILLNESS: 59 y/o female with hx of multiple (~30) back and spine surgeries, complex global myofascial pain syndrome, recurrent spinal stenosis, multiple sclerosis, mechanical thoracolumbar instability, admitted for surgical intervention and per notes completed: 1) inspection fusion mass (c-spine), 2) T1-3 laminectomies, 3) C7-T4 in situ fusion, 4) Inspection fusion mass (thoracolumbar spine), 5) posterior instrumentation T8-S1, 6) posteroir arthrodesis T8-S1, 7) bone allograft, 8) bone autograft, 9) complex wound closure (60cm). 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 Complaints of pain and pain mgmt has been consulted. Extensive conversation regarding her MS history which dates back to >10 years and reports previously on BetaSeron but felt no difference. States last MRI brain was 1 year ago, offered repeat which patient would like to defer and reports prior imaging stable and states she will not be able to stay flat and tolerate procedure. She does not want to start on MS meds and would like to focus on spinal mgmt at this time. As outpatient, would advise MRI brain with and without contrast to start with. Patient completed ruff's slide on 09/30 per note and this AM she is in ICU under critical care management. No complications and per patient does report some slight improvement. Discussed wit nurse, patient would like to proceed with physical therapy and rehabilitation. She verbalized desire to the [facility] near her home. Active Medications Amitriptyline HCl (Elavil -) 100 mg PO HS [facility] Last Admin: 09/30/19 22:43 Dose: 100 mg Benzocaine/Menthol (Cepacol Lozenge -) 1 each MM PRN PRN PRN Reason: SORE THROAT Chlorhexidine Gluconate (Hibiclens For Decolonization -) 1 applic TP [facility] Last Admin: 10/01/19 00:35 Dose: 1 applic Cyclobenzaprine HCl (Flexeril -) 10 mg PO BID [facility] Last Admin: 09/30/19 22:42 Dose: 10 mg Diphenhydramine HCl (Benadryl -) 50 mg PO BID [facility] Last Admin: 09/30/19 22:42 Dose: 50 mg Furosemide (Lasix Injection -) 40 mg IVPUSH DAILY [facility] Gabapentin (Neurontin -) 600 mg PO TID [facility] Last Admin: 10/01/19 06:18 Dose: 600 mg Hydromorphone HCl (Dilaudid Vial -) 0.25 mg IVPUSH [id number] PRN PRN Reason: PAIN LEVEL 4 - 6 Hydromorphone HCl (Dilaudid -) 8 mg PO Q6H PRN PRN Reason: PAIN 7 - 10; IF OXY NOT WORK Last Admin: 10/01/19 06:18 Dose: 8 mg Lactated Ringer's (Lactated Ringers Solution) 1,000 mls @ 75 mls/hr IV ASDIR [facility] Last Admin: 10/01/19 00:35 Dose: 75 mls/hr Lorazepam (Ativan Injection -) 2 mg IVPUSH Q6H PRN PRN Reason: ANXIETY Last Admin: 10/01/19 04:05 Dose: 2 mg Melatonin (Melatonin) 10 mg PO HS PRN PRN Reason: INSOMNIA Mupirocin (Bactroban Ointment (For Decolonization) -) 1 applic NS BID [facility] Stop: 10/05/19 21:59 Last Admin: 09/30/19 22:41 Dose: 1 applic Ondansetron HCl (Zofran Injection) 4 mg IVPUSH Q6H PRN PRN Reason: NAUSEA AND/OR VOMITING Ondansetron HCl (Zofran Injection) 4 mg IVPUSH Q4H PRN PRN Reason: NAUSEA AND/OR VOMITING Oxycodone HCl (Roxicodone -) 30 mg PO Q8H PRN PRN Reason: PAIN LEVEL 7 - 10 Last Admin: 10/01/19 01:25 Dose: 30 mg Polyethylene Glycol (Miralax (For Daily Use) -) 17 gm PO BID [facility] Last Admin: 09/30/19 23:00 Dose: 17 grams Promethazine HCl (Phenergan Injection -) 12.5 mg IVPB Q6H PRN PRN Reason: NAUSEA AND/OR VOMITING Zolpidem Tartrate (Ambien -) 10 mg PO HS PRN PRN Reason: INSOMNIA Last Admin: 09/30/19 22:43 Dose: 10 mg PHYSICAL EXAMINATION Vital Signs Period Temp Pulse Resp BP Sys/Gallagher Pulse Ox Last 24 Hr 98 F-98.4 F 70-80 11-23 93-119/51-79 99-100 GENERAL: Awake, alert, and fully oriented, in no acute distress. HEAD: Normal with no signs of trauma. EYES: Pupils equal, round and reactive to light, extraocular movements intact, sclera anicteric, conjunctiva clear. No lid lag. EARS, NOSE, THROAT: Ears normal, nares patent, oropharynx clear without exudates. Moist mucous membranes. NECK: Normal range of motion, supple without lymphadenopathy, JVD, or masses. LUNGS: Breath sounds equal, clear to auscultation bilaterally. No wheezes, and no crackles. No accessory muscle use. HEART: Regular rate and rhythm, normal S1 and S2 without murmur, rub or gallop. ABDOMEN: Soft, nontender, not distended, normoactive bowel sounds, no guarding, no rebound, no masses. No hepatomegaly or splenomegaly. MUSCULOSKELETAL: Normal range of motion at all joints. No bony deformities or tenderness. No CVA tenderness. UPPER EXTREMITIES: 2+ pulses, warm, well-perfused. No cyanosis. No clubbing. Cap refill <2 seconds. No peripheral edema. LOWER EXTREMITIES: 2+ pulses, warm, well-perfused. No calf tenderness. No peripheral edema. NEUROLOGICAL: Cranial nerves II-XII intact. Normal speech. Normal gait. PSYCHIATRIC: Cooperative. Good eye contact. Appropriate mood and affect. SKIN: Warm, dry, normal turgor, no rashes or lesions noted. 2 CBCD WBC 6.1 K/mm3 (4.0-10.0) 10/01/19 05:40 RBC 3.01 M/mm3 (3.60-5.2) L 10/01/19 05:40 Hgb 8.9 GM/dL (10.7-15.3) L 10/01/19 05:40 Hct 27.1 % (32.4-45.2) L 10/01/19 05:40 MCV 90.2 fl (80-96) 10/01/19 05:40 MCHC 32.8 g/dl (32.0-36.0) 10/01/19 05:40 RDW 14.4 % (11.6-15.6) 10/01/19 05:40 Plt Count 587 K/MM3 (134-434) H 10/01/19 05:40 MPV 8.2 fl (7.5-11.1) 10/01/19 05:40 CMP Sodium 137 mmol/L (136-145) 10/01/19 05:40 Potassium 4.6 mmol/L (3.5-5.1) 10/01/19 05:40 Chloride 101 mmol/L (98-107) 10/01/19 05:40 Carbon Dioxide 33 mmol/L (21-32) H 10/01/19 05:40 Anion Gap 4 MMOL/L (8-16) L 10/01/19 05:40 BUN 15.3 mg/dL (7-18) 10/01/19 05:40 Creatinine 0.5 mg/dL (0.55-1.3) L 10/01/19 05:40 Random Glucose 84 mg/dL (74-106) 10/01/19 05:40 Calcium 8.8 mg/dL (8.5-10.1) 10/01/19 05:40 Total Bilirubin 0.3 mg/dL (0.2-1) 09/28/19 05:15 AST 22 U/L (15-37) 09/28/19 05:15 ALT 28 U/L (13-61) 09/28/19 05:15 Alkaline Phosphatase 190 U/L (45-117) H 09/28/19 05:15 Total Protein 7.0 g/dl (6.4-8.2) 09/28/19 05:15 Albumin 2.4 g/dl (3.4-5.0) L 09/28/19 05:15 ASSESSMENT/PLAN: 59 y/o female with hx of multiple (~30) back and spine surgeries, complex global myofascial pain syndrome, recurrent spinal stenosis, multiple sclerosis, mechanical thoracolumbar instability, POD #0 s/p 1) inspection fusion mass (c- spine), 2) T1-3 laminectomies, 3) C7-T4 in situ fusion, 4) Inspection fusion mass (thoracolumbar spine), 5) posterior instrumentation T8-S1, 6) posteroir arthrodesis T8-S1, 7) bone allograft, 8) bone autograft, 9) complex wound closure (60cm). 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 Complaints of pain and pain mgmt has been consulted. Extensive conversation regarding her MS history which dates back to > 10 years and reports previously on BetaSeron but felt no difference. States last MRI brain was 1 year ago, offered repeat which patient would like to defer and reports prior imaging stable and states she will not be able to stay flat and tolerate procedure. She does not want to start on MS meds and would like to focus on spinal mgmt at this time. As outpatient, would advise MRI brain with and without contrast to start with. Patient completed ruff's slide on 09/30 per note and this AM she is in ICU under critical care management. No complications and per patient does report some slight improvement. Discussed wit nurse, patient would like to proceed with physical therapy and rehabilitation. She verbalized desire to the [facility] near her home. Continued Ortho follow up. Physical therapy as tolerated, rehab evaluation and placement. Fall precautions. Discussed with ICU nurse. Crit care time 35 mins.
[2019-10-01] MEDS ORDERED: FUROSEMIDE 40 MG/4 ML INJECTABLE VIAL IVPUSH SCH (10:00)
[2019-10-01] MEDS: MUPIROCIN 2% TOPICAL OINTMENT FOR DECOLONIZATION NS SCH (10:04)
[2019-10-01] MEDS: diphenhydrAMINE HCL 25 MG CAPSULE (FP) PO SCH ×2 (10:04→22:05)
[2019-10-01] MEDS: CYCLOBENZAPRINE HCL 10 MG TABLET (FP) PO SCH ×2 (10:05→22:05)
[2019-10-01] MEDS: POLYETHYLENE GLYCOL 3350 119 GM BTL PO SCH ×2 (10:07→22:05)
--- NOTE | 2019-10-01 11:52 | PN ---
Teaching Attending Note Name of Resident: Lucas Vasques ATTENDING PHYSICIAN STATEMENT I saw and evaluated the patient. I reviewed the resident's note and discussed the case with the resident. I agree with the resident's findings and plan as documented. SUBJECTIVE: Patient seen and examined. Awake and alert. Pain seems well controlled at the surgical site in the LE but persistent back pain. No CP or SOB. Intake & Output 09/29/19 09/29/19 09/30/19 10/01/19 00:59 23:59 23:59 23:59 Intake Total 1475 1100 Output Total 1550 600 Balance -75 500 Weight 192 lb 2 oz Last Vital Signs Temp Pulse Resp BP Pulse Ox 98 F 84 12 113/73 100 10/01/19 06:00 10/01/19 10:00 10/01/19 10:00 10/01/19 10:00 10/01/19 08:56 Active Medications Amitriptyline HCl (Elavil -) 100 mg PO HS [facility] Last Admin: 09/30/19 22:43 Dose: 100 mg Benzocaine/Menthol (Cepacol Lozenge -) 1 each MM PRN PRN PRN Reason: SORE THROAT Chlorhexidine Gluconate (Hibiclens For Decolonization -) 1 applic TP [facility] Last Admin: 10/01/19 00:35 Dose: 1 applic Cyclobenzaprine HCl (Flexeril -) 10 mg PO BID [facility] Last Admin: 10/01/19 10:05 Dose: 10 mg Diphenhydramine HCl (Benadryl -) 50 mg PO BID [facility] Last Admin: 10/01/19 10:04 Dose: 50 mg Furosemide (Lasix Injection -) 40 mg IVPUSH DAILY [facility] Last Admin: 10/01/19 11:00 Dose: 40 mg Gabapentin (Neurontin -) 600 mg PO TID [facility] Last Admin: 10/01/19 06:18 Dose: 600 mg Hydromorphone HCl (Dilaudid Vial -) 0.25 mg IVPUSH [id number] PRN PRN Reason: PAIN LEVEL 4 - 6 Hydromorphone HCl (Dilaudid -) 8 mg PO Q6H PRN PRN Reason: PAIN 7 - 10; IF OXY NOT WORK Last Admin: 10/01/19 06:18 Dose: 8 mg Lactated Ringer's (Lactated Ringers Solution) 1,000 mls @ 75 mls/hr IV ASDIR [facility] Last Admin: 10/01/19 00:35 Dose: 75 mls/hr Lorazepam (Ativan Injection -) 2 mg IVPUSH Q6H PRN PRN Reason: ANXIETY Last Admin: 10/01/19 10:14 Dose: 2 mg Melatonin (Melatonin) 10 mg PO HS PRN PRN Reason: INSOMNIA Mupirocin (Bactroban Ointment (For Decolonization) -) 1 applic NS BID [facility] Stop: 10/05/19 21:59 Last Admin: 10/01/19 10:04 Dose: 1 applic Ondansetron HCl (Zofran Injection) 4 mg IVPUSH Q6H PRN PRN Reason: NAUSEA AND/OR VOMITING Ondansetron HCl (Zofran Injection) 4 mg IVPUSH Q4H PRN PRN Reason: NAUSEA AND/OR VOMITING Oxycodone HCl (Roxicodone -) 30 mg PO Q8H PRN PRN Reason: PAIN LEVEL 7 - 10 Last Admin: 10/01/19 01:25 Dose: 30 mg Polyethylene Glycol (Miralax (For Daily Use) -) 17 gm PO BID [facility] Last Admin: 10/01/19 10:07 Dose: 17 grams Promethazine HCl (Phenergan Injection -) 12.5 mg IVPB Q6H PRN PRN Reason: NAUSEA AND/OR VOMITING Zolpidem Tartrate (Ambien -) 10 mg PO HS PRN PRN Reason: INSOMNIA Last Admin: 09/30/19 22:43 Dose: 10 mg GENERAL: The patient is awake, alert, and fully oriented, mildly uncomfortable due to pain HEAD: Normal with no signs of trauma. LUNGS: Breath sounds equal, clear to auscultation bilaterally, no wheezes, no crackles, no accessory muscle use. HEART: Regular rate and rhythm, S1, S2 without murmur, rub or gallop. ABDOMEN: Soft, nontender, nondistended, normoactive bowel sounds, no guarding, no rebound, no hepatosplenomegaly, no masses. EXTREMITIES: BLE wrapped. Warm NEUROLOGICAL: AOx3. Normal speech Laboratory Results - last 24 hr 10/01/19 10/01/19 05:40 05:40 WBC 6.1 RBC 3.01 L Hgb 8.9 L Hct 27.1 L MCV 90.2 MCH 29.6 MCHC 32.8 RDW 14.4 Plt Count 587 H MPV 8.2 Sodium 137 Potassium 4.6 Chloride 101 Carbon Dioxide 33 H Anion Gap 4 L BUN 15.3 Creatinine 0.5 L Est GFR (CKD-EPI)AfAm 124.52 Est GFR (CKD-EPI)NonAf 107.44 Random Glucose 84 Calcium 8.8 Phosphorus 4.1 Magnesium 2.1 ASSESSMENT/PLAN: POD #1: B/L percutaneous Achilles tenotomies (Aguilar slide) Resolved ARDS Progressive Kyphoscoliosis s/p T1-T3 Laminectomies/C7-T4 Fusion/T8-S1 Posterior Instrumentation/Arthrodesis Anemia Acute Hypoxic Respiratory Failure Resolved Volume Overload - O2 to keep SpO2 >90% - pain control - incentive spirometry - PO as tolerated - antiemetics - activity/diet/DVT prophylaxis per surgery Dr Garza
--- NOTE | 2019-10-01 12:02 | PN ---
Physical Exam: SUBJECTIVE: Patient seen and examined. No acute events overnight. Pt has been tolerating food well. Endorses flatus and 2 BMs. Pain is controlled. No fevers or chills. OBJECTIVE: Vital Signs Period Temp Pulse Resp BP Sys/Gallagher Pulse Ox Last 24 Hr 98 F-98.4 F 70-84 11-23 93-115/51-79 100-100 GENERAL: The patient is awake, alert, and fully oriented, in no acute distress. EYES: PERRLA, EOMI, sclera anicteric, conjunctiva clear. NECK: Trachea midline, full range of motion, supple. LUNGS: Breath sounds equal, clear to auscultation bilaterally. HEART: Regular rate and rhythm, S1, S2 without murmur, rub or gallop. ABDOMEN: Soft, nontender, nondistended, normoactive bowel sounds. EXTREMITIES: 2+ pulses, warm, well-perfused, no edema. NEUROLOGICAL: Cranial nerves II through XII grossly intact. Motor strength upper limb 3/5, lower limb 1/5, sensations intact in all extremities. Gait not observed. PSYCH: Normal mood, normal affect. SKIN: Warm, dry, normal turgor Laboratory Results - last 24 hr 10/01/19 10/01/19 05:40 05:40 WBC 6.1 RBC 3.01 L Hgb 8.9 L Hct 27.1 L MCV 90.2 MCH 29.6 MCHC 32.8 RDW 14.4 Plt Count 587 H MPV 8.2 Sodium 137 Potassium 4.6 Chloride 101 Carbon Dioxide 33 H Anion Gap 4 L BUN 15.3 Creatinine 0.5 L Est GFR (CKD-EPI)AfAm 124.52 Est GFR (CKD-EPI)NonAf 107.44 Random Glucose 84 Calcium 8.8 Phosphorus 4.1 Magnesium 2.1 Active Medications Amitriptyline HCl (Elavil -) 100 mg PO [facility] Last Admin: 09/30/19 22:43 Dose: 100 mg Benzocaine/Menthol (Cepacol Lozenge -) 1 each MM PRN PRN PRN Reason: SORE THROAT Chlorhexidine Gluconate (Hibiclens For Decolonization -) 1 applic TP [facility] Last Admin: 10/01/19 00:35 Dose: 1 applic Cyclobenzaprine HCl (Flexeril -) 10 mg PO BID [facility] Last Admin: 10/01/19 10:05 Dose: 10 mg Diphenhydramine HCl (Benadryl -) 50 mg PO BID [facility] Last Admin: 10/01/19 10:04 Dose: 50 mg Furosemide (Lasix Injection -) 40 mg IVPUSH DAILY [facility] Last Admin: 10/01/19 11:00 Dose: 40 mg Gabapentin (Neurontin -) 600 mg PO TID [facility] Last Admin: 10/01/19 06:18 Dose: 600 mg Hydromorphone HCl (Dilaudid Vial -) 0.25 mg IVPUSH [id number] PRN PRN Reason: PAIN LEVEL 4 - 6 Hydromorphone HCl (Dilaudid -) 8 mg PO Q6H PRN PRN Reason: PAIN 7 - 10; IF OXY NOT WORK Last Admin: 10/01/19 06:18 Dose: 8 mg Lactated Ringer's (Lactated Ringers Solution) 1,000 mls @ 75 mls/hr IV ASDIR [facility] Last Admin: 10/01/19 00:35 Dose: 75 mls/hr Lorazepam (Ativan Injection -) 2 mg IVPUSH Q6H PRN PRN Reason: ANXIETY Last Admin: 10/01/19 10:14 Dose: 2 mg Melatonin (Melatonin) 10 mg PO HS PRN PRN Reason: INSOMNIA Mupirocin (Bactroban Ointment (For Decolonization) -) 1 applic NS BID [facility] Stop: 10/05/19 21:59 Last Admin: 10/01/19 10:04 Dose: 1 applic Ondansetron HCl (Zofran Injection) 4 mg IVPUSH Q6H PRN PRN Reason: NAUSEA AND/OR VOMITING Ondansetron HCl (Zofran Injection) 4 mg IVPUSH Q4H PRN PRN Reason: NAUSEA AND/OR VOMITING Oxycodone HCl (Roxicodone -) 30 mg PO Q8H PRN PRN Reason: PAIN LEVEL 7 - 10 Last Admin: 10/01/19 01:25 Dose: 30 mg Polyethylene Glycol (Miralax (For Daily Use) -) 17 gm PO BID [facility] Last Admin: 10/01/19 10:07 Dose: 17 grams Promethazine HCl (Phenergan Injection -) 12.5 mg IVPB Q6H PRN PRN Reason: NAUSEA AND/OR VOMITING Zolpidem Tartrate (Ambien -) 10 mg PO HS PRN PRN Reason: INSOMNIA Last Admin: 09/30/19 22:43 Dose: 10 mg ASSESSMENT/PLAN: Ms. Tafoya is a 59y/o female with multiple (~30) back and spine surgeries, complex global myofascial pain syndrome, recurrent spinal stenosis, multiple sclerosis, and mechanical thoracolumbar instability who presents for spinal surgery. #Complex spinal pain 2/2 mechanical instability and myofascial decompensation s/ p multi-level spinal intervention, POD 20. #BL Achilles tendonotomy POD #1 Incentive spirometry Regular diet Weight bearing per surgery Defer pain control to ortho (Shein) and anesthesiology: Gabapentin 600mg PO TID Lorazepam 2mg IV Q6H Ambien 10mg PO HS PRN Dilaudid 8mg PO Q6H PRN Oxycodone 30mg Q8H PRN Benadryl, Amytriptyline, Flexeril PT eval daily. No bending, lifting (>5 lbs), or twisting for 9-12 months, f/ u 7-10 days after rehab d/c #ARDS likely 2/2 pneumonia - resolved CXR (09/28): mild congestion Zosyn 3.375gm Q8H per ID (Dr. Bennett) 10 day course completed Blood, urine, and sputum cx, no growth. Cont lasix 40mg qd Pt satting well on RA Incentive spirometry #Normocytic anemia Hgb: 10.1, stabilized FOBT: negative Hold off on units for now Cont to monitor closely #Hypomagnesemia M.0 today Cont to monitor daily #DVT ppx SCDs #FEN LR @ 75ml/hr Monitor Mg and Hb Regular diet #Dispo: Monitor in ICU SNF Visit type - Emergency Visit Emergency Visit: No - New Patient This patient is new to me today: No - Critical Care Critical Care patient: Yes Total Critical Care Time (in minutes): 45 Critical Care Statement: The care of this patient involved high complexity decision making to prevent further life threatening deterioration of the patient 's condition and/or to evaluate & treat vital organ system(s) failure or risk of failure. ATTENDING PHYSICIAN STATEMENT I saw and evaluated the patient. I reviewed the resident's note and discussed the case with the resident. I agree with the resident's findings and plan as documented. SUBJECTIVE: OBJECTIVE: ASSESSMENT AND PLAN:
--- NOTE | 2019-10-01 12:43 | PN ---
Teaching Attending Note Name of Resident: Chanda Graham ATTENDING PHYSICIAN STATEMENT I saw and evaluated the patient. I reviewed the resident's note and discussed the case with the resident. I agree with the resident's findings and plan as documented with exceptions below. SUBJECTIVE: Patient seen and examined. Pain better, declines guzman removal. Frustrated that mobility is limited and motivated to work with PT. OBJECTIVE: Vital Signs Period Temp Pulse Resp BP Sys/Gallagher Pulse Ox Last 24 Hr 98 F-98.4 F 70-84 11-23 93-115/51-79 96-100 Intake & Output 09/29/19 09/29/19 09/30/19 10/01/19 00:59 23:59 23:59 23:59 Intake Total 1475 1100 Output Total 1550 600 Balance -75 500 Weight 192 lb 2 oz General: AA, oriented Heart - S1, S2, RRR Lungs - decreased air entry at bases. Abdomen - Soft, non-tender. Bowel Sounds normal. Extremities - bilateral LE/feet dressing Home Medications Medication Instructions Recorded Amitriptyline HCl [Elavil -] 50 mg PO HS 01/16/19 Oxycodone HCl 60 mg PO Q8H 01/16/19 HYDROmorphone [Dilaudid -] 8 mg PO Q6H PRN 03/04/19 Cyclobenzaprine HCl 1 tab PO TID 03/05/19 LORazepam [Ativan] 2 mg PO TID tablet MDD 6mg 03/11/19 Amitriptyline HCl 100 mg PO TID 09/06/19 Alprazolam [Xanax] 0.5 mg PO BID 09/12/19 Fluoxetine HCl 10 mg PO BID 09/12/19 Prednisone 5 mg PO QID 09/12/19 Active Medications Amitriptyline HCl (Elavil -) 100 mg PO HS [facility] Last Admin: 09/30/19 22:43 Dose: 100 mg Benzocaine/Menthol (Cepacol Lozenge -) 1 each MM PRN PRN PRN Reason: SORE THROAT Chlorhexidine Gluconate (Hibiclens For Decolonization -) 1 applic TP HS [facility] Last Admin: 10/01/19 00:35 Dose: 1 applic Cyclobenzaprine HCl (Flexeril -) 10 mg PO BID [facility] Last Admin: 10/01/19 10:05 Dose: 10 mg Diphenhydramine HCl (Benadryl -) 50 mg PO BID [facility] Last Admin: 10/01/19 10:04 Dose: 50 mg Furosemide (Lasix Injection -) 40 mg IVPUSH DAILY [facility] Last Admin: 10/01/19 11:00 Dose: 40 mg Gabapentin (Neurontin -) 600 mg PO TID [facility] Last Admin: 10/01/19 06:18 Dose: 600 mg Hydromorphone HCl (Dilaudid Vial -) 0.25 mg IVPUSH [id number] PRN PRN Reason: PAIN LEVEL 4 - 6 Hydromorphone HCl (Dilaudid -) 8 mg PO Q6H PRN PRN Reason: PAIN 7 - 10; IF OXY NOT WORK Last Admin: 10/01/19 06:18 Dose: 8 mg Lactated Ringer's (Lactated Ringers Solution) 1,000 mls @ 75 mls/hr IV ASDIR [facility] Last Admin: 10/01/19 00:35 Dose: 75 mls/hr Lorazepam (Ativan Injection -) 2 mg IVPUSH Q6H PRN PRN Reason: ANXIETY Last Admin: 10/01/19 10:14 Dose: 2 mg Melatonin (Melatonin) 10 mg PO HS PRN PRN Reason: INSOMNIA Mupirocin (Bactroban Ointment (For Decolonization) -) 1 applic NS BID [facility] Stop: 10/05/19 21:59 Last Admin: 10/01/19 10:04 Dose: 1 applic Ondansetron HCl (Zofran Injection) 4 mg IVPUSH Q6H PRN PRN Reason: NAUSEA AND/OR VOMITING Ondansetron HCl (Zofran Injection) 4 mg IVPUSH Q4H PRN PRN Reason: NAUSEA AND/OR VOMITING Oxycodone HCl (Roxicodone -) 30 mg PO Q8H PRN PRN Reason: PAIN LEVEL 7 - 10 Last Admin: 10/01/19 12:10 Dose: 30 mg Polyethylene Glycol (Miralax (For Daily Use) -) 17 gm PO BID [facility] Last Admin: 10/01/19 10:07 Dose: 17 grams Promethazine HCl (Phenergan Injection -) 12.5 mg IVPB Q6H PRN PRN Reason: NAUSEA AND/OR VOMITING Zolpidem Tartrate (Ambien -) 10 mg PO HS PRN PRN Reason: INSOMNIA Last Admin: 09/30/19 22:43 Dose: 10 mg ASSESSMENT AND PLAN: 59 year old woman with PMH of Multiple Sclerosis, Morphine allergy, Lumbar spine stenosis and Multiple back and spine surgeries, Complex global myofascial pain syndrome, Recurrent spinal stenosis, Multiple sclerosis, Mechanical thoracolumbar instability s/p spinal surgery, course complicated by hypoxic respiratory failure/PNA/ARDS, now s/p bilateral achillies tenotomies -s/p Inspection fusion mass (cervical spine). 2. T1, T2, T3 laminectomies. 3. C7-T4 in situ fusion. 4. Inspection fusion mass (thoracolumbar spine). 5. Posterior instrumentation T8-S1. 6. Posterior arthrodesis T8-S1. 7. Bone allograft. 8. Bone autograft. 9. Complex wound closure on 09/09/2019 -Bilateral percutaneous Achillies tenotomies 09/30/2019 -Acute hypoxic respiratory failure/HACP/ARDS, resolved -Acute metabolic encephalopathy, due to hypoxia/sepsis, resolved -Normocytic anemia -Thrombocytosis, likely reactive -Paraparesis -Hypophosphatemia -Hypomagnesemia -Multiple Sclerosis -Lumbar spinal stenosis -Complex global myofascial pain syndrome -Recurrent spinal stenosis -Mechanical thoracolumbar instability s/p spinal surgery Plan: Weight bearing per Dr. Marina. S/p 10 days of zosyn. Continue lasix. respiratory status improved. taper opioids as tolerated. transition to home xanax over next 2-3 days. Bowel regimen PT eval [id number] per surgery Dispo plan for Platt if no new concerns over next 24-48 hours Discussed with patient. Critical Care Total Critical Care Time (in minutes): 36 Critical Care Statement: The care of this patient involved high complexity decision making to prevent further life threatening deterioration of the patient 's condition and/or to evaluate & treat vital organ system(s) failure or risk of failure.
[2019-10-01] MEDS ORDERED: ACETAMINOPHEN 1000 MG/100 ML VIAL (NON FORMULARY) IVPB PRN ×2 (12:48→21:49)
[2019-10-01 18:54] LABS: HEMATOCRIT 32.9 % (32.4-45.2); HEMOGLOBIN 10.7 GM/dL (10.7-15.3); MCHC 32.7 g/dl (32.0-36.0); MEAN CELL VOLUME 91.9 fl (80-96); RBC 3.58 M/mm3 (3.60-5.2); RDW 14.8 % (11.6-15.6); WHITE BLOOD COUNT 6.6 K/mm3 (4.0-10.0)
[2019-10-01] MEDS ORDERED: BENZOCAINE/MENTH/CETYLPYRD CL 1 EACH LOZENGE MM PRN (21:49)
[2019-10-01] MEDS ORDERED: LACTATED RINGERS SOLUTION 1,000 ML IV SCH (21:49)
[2019-10-01] MEDS ORDERED: ZOLPIDEM TARTRATE 5 MG TABLET PO PRN (21:49)
[2019-10-01] MEDS ORDERED: ONDANSETRON 4 MG/2 ML VIAL IVPUSH PRN ×2 (21:49)
[2019-10-01] MEDS ORDERED: MELATONIN 5 MG TABLETS PO PRN (21:49)
[2019-10-01] MEDS ORDERED: PROMETHAZINE HCL 25 MG/1 ML VIAL IVPB PRN (21:49)
[2019-10-01] MEDS ORDERED: oxyCODONE HCL 5 MG TABLET PO PRN (21:49)
[2019-10-01] MEDS ORDERED: HYDROmorphone HCl 2 MG/ML VIAL IVPUSH PRN (21:49)
[2019-10-01] MEDS ORDERED: AMITRIPTYLINE HCL 25 MG TABLET (FP) PO SCH (22:00)
[2019-10-02] MEDS: ACETAMINOPHEN 1000 MG/100 ML VIAL (NON FORMULARY) IVPB PRN ×2 (06:13→11:46)
[2019-10-02] MEDS: GABAPENTIN 300 MG CAPSULE (FP) PO SCH ×3 (06:13→21:38)
[2019-10-02] MEDS: LORazepam 2 MG/ML SDV VIAL IVPUSH PRN (06:34)
[2019-10-02 06:45] LABS: HEMATOCRIT 30.2 % (32.4-45.2); HEMOGLOBIN 9.9 GM/dL (10.7-15.3); MCH 29.9 pg (25.7-33.7); MCHC 32.9 g/dl (32.0-36.0); MEAN CELL VOLUME 90.9 fl (80-96); MEAN PLT VOLUME 8.4 fl (7.5-11.1); PLATELET COUNT 493 K/MM3 (134-434); RBC 3.32 M/mm3 (3.60-5.2); RDW 14.3 % (11.6-15.6); WHITE BLOOD COUNT 5.9 K/mm3 (4.0-10.0)
[2019-10-02 07:01] LABS: BLOOD UREA NITROGEN 16.3 mg/dL (7-18); CALCIUM 8.8 mg/dL (8.5-10.1); CREATININE 0.5 mg/dL (0.55-1.3)
[2019-10-02] MEDS ORDERED: LORazepam 1 MG TABLET PO PRN (09:00)
--- NOTE | 2019-10-02 09:14 | PN ---
Progress Note (short form) - Note Progress Note: Neurology HISTORY OF PRESENT ILLNESS: 59 y/o female with hx of multiple (~30) back and spine surgeries, complex global myofascial pain syndrome, recurrent spinal stenosis, multiple sclerosis, mechanical thoracolumbar instability, admitted for surgical intervention and per notes completed: 1) inspection fusion mass (c-spine), 2) T1-3 laminectomies, 3) C7-T4 in situ fusion, 4) Inspection fusion mass (thoracolumbar spine), 5) posterior instrumentation T8-S1, 6) posteroir arthrodesis T8-S1, 7) bone allograft, 8) bone autograft, 9) complex wound closure (60cm). 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 Complaints of pain and pain mgmt has been consulted. Extensive conversation regarding her MS history which dates back to >10 years and reports previously on BetaSeron but felt no difference. States last MRI brain was 1 year ago, offered repeat which patient would like to defer and reports prior imaging stable and states she will not be able to stay flat and tolerate procedure. She does not want to start on MS meds and would like to focus on spinal mgmt at this time. As outpatient, would advise MRI brain with and without contrast to start with. Patient completed ruff's slide on 09/30 per note and now downgraded from ICU to telemetry floor. No complications and per patient does report some slight improvement. Patient would like to proceed with physical therapy and rehabilitation. She verbalized desire to [place]. She denies any new complaints or issues. Active Medications Acetaminophen (Ofirmev Injection -) 1,000 mg IVPB Q6H PRN PRN Reason: PAIN LEVEL 6-10 Last Admin: 10/02/19 06:13 Dose: 1,000 mg Amitriptyline HCl (Elavil -) 100 mg PO HS [facility] Last Admin: 10/01/19 22:05 Dose: 100 mg Benzocaine/Menthol (Cepacol Lozenge -) 1 each MM PRN PRN PRN Reason: SORE THROAT Cyclobenzaprine HCl (Flexeril -) 10 mg PO BID [facility] Last Admin: 10/01/19 22:05 Dose: 10 mg Diphenhydramine HCl (Benadryl -) 50 mg PO BID [facility] Last Admin: 10/01/19 22:05 Dose: 50 mg Furosemide (Lasix Injection -) 40 mg IVPUSH DAILY [facility] Gabapentin (Neurontin -) 600 mg PO TID [facility] Last Admin: 10/02/19 06:13 Dose: 600 mg Hydromorphone HCl (Dilaudid -) 8 mg PO Q6H PRN PRN Reason: PAIN 7 - 10; IF OXY NOT WORK Hydromorphone HCl (Dilaudid Vial -) 0.25 mg IVPUSH [id number] PRN PRN Reason: PAIN LEVEL 4 - 6 Lactated Ringer's (Lactated Ringers Solution) 1,000 mls @ 75 mls/hr IV ASDIR [facility] Last Admin: 10/01/19 22:23 Dose: 75 mls/hr Lorazepam (Ativan) 2 mg PO TID PRN PRN Reason: ANXIETY Melatonin (Melatonin) 10 mg PO HS PRN PRN Reason: INSOMNIA Ondansetron HCl (Zofran Injection) 4 mg IVPUSH Q6H PRN PRN Reason: NAUSEA AND/OR VOMITING Oxycodone HCl (Roxicodone -) 30 mg PO Q8H PRN PRN Reason: PAIN LEVEL 7 - 10 Polyethylene Glycol (Miralax (For Daily Use) -) 17 gm PO BID [facility] Last Admin: 10/01/19 22:05 Dose: Not Given Promethazine HCl (Phenergan Injection -) 12.5 mg IVPB Q6H PRN PRN Reason: NAUSEA AND/OR VOMITING Zolpidem Tartrate (Ambien -) 10 mg PO HS PRN PRN Reason: INSOMNIA PHYSICAL EXAMINATION Vital Signs Period Temp Pulse Resp BP Sys/Gallagher Pulse Ox Last 24 Hr 97.9 F-98.4 F 71-84 12-18 98-113/53-73 96-96 GENERAL: Awake, alert, and fully oriented, in no acute distress. HEAD: Normal with no signs of trauma. EYES: Pupils equal, round and reactive to light, extraocular movements intact, sclera anicteric, conjunctiva clear. No lid lag. EARS, NOSE, THROAT: Ears normal, nares patent, oropharynx clear without exudates. Moist mucous membranes. NECK: Normal range of motion, supple without lymphadenopathy, JVD, or masses. LUNGS: Breath sounds equal, clear to auscultation bilaterally. No wheezes, and no crackles. No accessory muscle use. HEART: Regular rate and rhythm, normal S1 and S2 without murmur, rub or gallop. ABDOMEN: Soft, nontender, not distended, normoactive bowel sounds, no guarding, no rebound, no masses. No hepatomegaly or splenomegaly. MUSCULOSKELETAL: Normal range of motion at all joints. No bony deformities or tenderness. No CVA tenderness. UPPER EXTREMITIES: 2+ pulses, warm, well-perfused. No cyanosis. No clubbing. Cap refill <2 seconds. No peripheral edema. LOWER EXTREMITIES: 2+ pulses, warm, well-perfused. No calf tenderness. No peripheral edema. NEUROLOGICAL: Cranial nerves II-XII intact. Normal speech. Normal gait. PSYCHIATRIC: Cooperative. Good eye contact. Appropriate mood and affect. SKIN: Warm, dry, normal turgor, no rashes or lesions noted. 2 CBCD WBC 5.9 K/mm3 (4.0-10.0) 10/02/19 06:05 RBC 3.32 M/mm3 (3.60-5.2) L 10/02/19 06:05 Hgb 9.9 GM/dL (10.7-15.3) L 10/02/19 06:05 Hct 30.2 % (32.4-45.2) L 10/02/19 06:05 MCV 90.9 fl (80-96) 10/02/19 06:05 MCHC 32.9 g/dl (32.0-36.0) 10/02/19 06:05 RDW 14.3 % (11.6-15.6) 10/02/19 06:05 Plt Count 493 K/MM3 (134-434) H 10/02/19 06:05 MPV 8.4 fl (7.5-11.1) 10/02/19 06:05 CMP Sodium 139 mmol/L (136-145) 10/02/19 06:05 Potassium 5.0 mmol/L (3.5-5.1) 10/02/19 06:05 Chloride 105 mmol/L (98-107) 10/02/19 06:05 Carbon Dioxide 30 mmol/L (21-32) 10/02/19 06:05 Anion Gap 3 MMOL/L (8-16) L 10/02/19 06:05 BUN 16.3 mg/dL (7-18) 10/02/19 06:05 Creatinine 0.5 mg/dL (0.55-1.3) L 10/02/19 06:05 Random Glucose 83 mg/dL (74-106) 10/02/19 06:05 Calcium 8.8 mg/dL (8.5-10.1) 10/02/19 06:05 Total Bilirubin 0.3 mg/dL (0.2-1) 09/28/19 05:15 AST 22 U/L (15-37) 09/28/19 05:15 ALT 28 U/L (13-61) 09/28/19 05:15 Alkaline Phosphatase 190 U/L (45-117) H 09/28/19 05:15 Total Protein 7.0 g/dl (6.4-8.2) 09/28/19 05:15 Albumin 2.4 g/dl (3.4-5.0) L 09/28/19 05:15 ASSESSMENT/PLAN: 59 y/o female with hx of multiple (~30) back and spine surgeries, complex global myofascial pain syndrome, recurrent spinal stenosis, multiple sclerosis, mechanical thoracolumbar instability, POD #0 s/p 1) inspection fusion mass (c- spine), 2) T1-3 laminectomies, 3) C7-T4 in situ fusion, 4) Inspection fusion mass (thoracolumbar spine), 5) posterior instrumentation T8-S1, 6) posteroir arthrodesis T8-S1, 7) bone allograft, 8) bone autograft, 9) complex wound closure (60cm). 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 Complaints of pain and pain mgmt has been consulted. Extensive conversation regarding her MS history which dates back to > 10 years and reports previously on BetaSeron but felt no difference. States last MRI brain was 1 year ago, offered repeat which patient would like to defer and reports prior imaging stable and states she will not be able to stay flat and tolerate procedure. She does not want to start on MS meds and would like to focus on spinal mgmt at this time. As outpatient, would advise MRI brain with and without contrast to start with. Patient completed speedy's slide on 09/30 per note and downgraded from ICU to telemetry on October 02. No complications and per patient does report some slight improvement. She verbalized desire [place]. Continued Ortho follow up. Physical therapy as tolerated, rehab evaluation and placement. Fall precautions.
[2019-10-02] MEDS: diphenhydrAMINE HCL 25 MG CAPSULE (FP) PO SCH ×2 (09:35→21:38)
[2019-10-02] MEDS: CYCLOBENZAPRINE HCL 10 MG TABLET (FP) PO SCH ×2 (09:36→21:39)
[2019-10-02] MEDS: POLYETHYLENE GLYCOL 3350 119 GM BTL PO SCH ×2 (09:54→21:42)
[2019-10-02] MEDS ORDERED: FUROSEMIDE 40 MG/4 ML INJECTABLE VIAL IVPUSH SCH (10:00)
--- NOTE | 2019-10-02 12:22 | PN ---
Teaching Attending Note Name of Resident: Chanda Graham ATTENDING PHYSICIAN STATEMENT I saw and evaluated the patient. I reviewed the resident's note and discussed the case with the resident. I agree with the resident's findings and plan as documented with exceptions below. SUBJECTIVE: Patient seen and examined, no new complaints. Eager to go to rehab. OBJECTIVE: Vital Signs Period Temp Pulse Resp BP Sys/Gallagher Pulse Ox Last 24 Hr 97.9 F-98.6 F 71-80 12-18 98-113/53-63 96-96 Intake & Output 09/29/19 09/30/19 10/01/19 10/02/19 23:59 23:59 23:59 23:59 Intake Total 1475 1100 1100 Output Total 1550 2600 Balance -75 -1500 1100 Weight 192 lb 2 oz General: AA, oriented Heart - S1, S2, RRR Lungs - decreased air entry at bases. Abdomen - Soft, non-tender. Bowel Sounds normal. Extremities - bilateral LE/feet dressing Home Medications Medication Instructions Recorded Amitriptyline HCl [Elavil -] 50 mg PO HS 01/16/19 Oxycodone HCl 60 mg PO Q8H 01/16/19 HYDROmorphone [Dilaudid -] 8 mg PO Q6H PRN 03/04/19 Cyclobenzaprine HCl 1 tab PO TID 03/05/19 LORazepam [Ativan] 2 mg PO TID tablet MDD 6mg 03/11/19 Amitriptyline HCl 100 mg PO TID 09/06/19 Alprazolam [Xanax] 0.5 mg PO BID 09/12/19 Fluoxetine HCl 10 mg PO BID 09/12/19 Prednisone 5 mg PO QID 09/12/19 Active Medications Acetaminophen (Ofirmev Injection -) 1,000 mg IVPB Q6H PRN PRN Reason: PAIN LEVEL 6-10 Last Admin: 10/02/19 11:46 Dose: 1,000 mg Amitriptyline HCl (Elavil -) 100 mg PO HS [facility] Last Admin: 10/01/19 22:05 Dose: 100 mg Benzocaine/Menthol (Cepacol Lozenge -) 1 each MM PRN PRN PRN Reason: SORE THROAT Cyclobenzaprine HCl (Flexeril -) 10 mg PO BID [facility] Last Admin: 10/02/19 09:36 Dose: 10 mg Diphenhydramine HCl (Benadryl -) 50 mg PO BID [facility] Last Admin: 10/02/19 09:35 Dose: 50 mg Furosemide (Lasix Injection -) 40 mg IVPUSH DAILY [facility] Last Admin: 10/02/19 09:36 Dose: 40 mg Gabapentin (Neurontin -) 600 mg PO TID [facility] Last Admin: 10/02/19 06:13 Dose: 600 mg Hydromorphone HCl (Dilaudid -) 8 mg PO Q6H PRN PRN Reason: PAIN 7 - 10; IF OXY NOT WORK Last Admin: 10/02/19 11:46 Dose: 8 mg Hydromorphone HCl (Dilaudid Vial -) 0.25 mg IVPUSH [id number] PRN PRN Reason: PAIN LEVEL 4 - 6 Lactated Ringer's (Lactated Ringers Solution) 1,000 mls @ 75 mls/hr IV ASDIR [facility] Last Admin: 10/01/19 22:23 Dose: 75 mls/hr Lorazepam (Ativan -) 2 mg PO Q8H PRN PRN Reason: ANXIETY Last Admin: 10/02/19 09:59 Dose: 2 mg Melatonin (Melatonin) 10 mg PO HS PRN PRN Reason: INSOMNIA Ondansetron HCl (Zofran Injection) 4 mg IVPUSH Q6H PRN PRN Reason: NAUSEA AND/OR VOMITING Oxycodone HCl (Roxicodone -) 30 mg PO Q8H PRN PRN Reason: PAIN LEVEL 7 - 10 Last Admin: 10/02/19 09:35 Dose: 30 mg Polyethylene Glycol (Miralax (For Daily Use) -) 17 gm PO BID [facility] Last Admin: 10/02/19 09:54 Dose: 17 gm Promethazine HCl (Phenergan Injection -) 12.5 mg IVPB Q6H PRN PRN Reason: NAUSEA AND/OR VOMITING Zolpidem Tartrate (Ambien -) 10 mg PO HS PRN PRN Reason: INSOMNIA ASSESSMENT AND PLAN: 59 year old woman with PMH of Multiple Sclerosis, Morphine allergy, Lumbar spine stenosis and Multiple back and spine surgeries, Complex global myofascial pain syndrome, Recurrent spinal stenosis, Multiple sclerosis, Mechanical thoracolumbar instability s/p spinal surgery, course complicated by hypoxic respiratory failure/PNA/ARDS, now s/p bilateral achillies tenotomies -s/p Inspection fusion mass (cervical spine). 2. T1, T2, T3 laminectomies. 3. C7-T4 in situ fusion. 4. Inspection fusion mass (thoracolumbar spine). 5. Posterior instrumentation T8-S1. 6. Posterior arthrodesis T8-S1. 7. Bone allograft. 8. Bone autograft. 9. Complex wound closure on 09/09/2019 -Bilateral percutaneous Achillies tenotomies 09/30/2019 -Acute hypoxic respiratory failure/HACP/ARDS, resolved -Acute metabolic encephalopathy, due to hypoxia/sepsis, resolved -Normocytic anemia -Thrombocytosis, likely reactive -Paraparesis -Hypophosphatemia -Hypomagnesemia -Multiple Sclerosis -Lumbar spinal stenosis -Complex global myofascial pain syndrome -Recurrent spinal stenosis -Mechanical thoracolumbar instability s/p spinal surgery Plan: Weight bearing per Dr. Marina. S/p 10 days of zosyn.Change lasix to PO 40 mg daily. respiratory status improved. CXR noted. taper opioids as tolerated. Dc IV ativan, resume home regimen PO ativan. Monitor for sedation. Bowel regimen PT eval DVTPPX per surgery Dispo Patient declines Platt, wants to be transferred to inpatient rehab close to her home in [place], discuss with social work. Dispo pending arrangements and Dr. Marina recommendations.
--- NOTE | 2019-10-02 14:10 | PN ---
Physical Exam: SUBJECTIVE: Patient seen and examined. No acute events overnight. OBJECTIVE: Vital Signs Period Temp Pulse Resp BP Sys/Gallagher Pulse Ox Last 24 Hr 98.1 F-98.6 F 71-80 14-18 98-113/53-63 96-96 GENERAL: The patient is awake, alert, and fully oriented, in no acute distress. EYES: PERRLA, EOMI, sclera anicteric, conjunctiva clear. NECK: Trachea midline, full range of motion, supple. LUNGS: Breath sounds equal, clear to auscultation bilaterally. HEART: Regular rate and rhythm, S1, S2 without murmur, rub or gallop. ABDOMEN: Soft, nontender, nondistended, normoactive bowel sounds. EXTREMITIES: 2+ pulses, warm, well-perfused, no edema. NEUROLOGICAL: Cranial nerves II through XII grossly intact. Motor strength upper limb 3/5, lower limb 1/5, sensations intact in all extremities. Gait not observed. PSYCH: Normal mood, normal affect. SKIN: Warm, dry, normal turgor Laboratory Results - last 24 hr 10/01/19 10/02/19 10/02/19 18:40 06:05 06:05 WBC 6.6 5.9 RBC 3.58 L 3.32 L Hgb 10.7 9.9 L Hct 32.9 D 30.2 L MCV 91.9 90.9 MCH 30.0 29.9 MCHC 32.7 32.9 RDW 14.8 14.3 Plt Count 493 H MPV 8.4 Sodium 139 Potassium 5.0 Chloride 105 Carbon Dioxide 30 Anion Gap 3 L BUN 16.3 Creatinine 0.5 L Est GFR (CKD-EPI)AfAm 124.52 Est GFR (CKD-EPI)NonAf 107.44 Random Glucose 83 Calcium 8.8 Active Medications Acetaminophen (Ofirmev Injection -) 1,000 mg IVPB Q6H PRN PRN Reason: PAIN LEVEL 6-10 Last Admin: 10/02/19 11:46 Dose: 1,000 mg Amitriptyline HCl (Elavil -) 100 mg PO HS [facility] Last Admin: 10/01/19 22:05 Dose: 100 mg Benzocaine/Menthol (Cepacol Lozenge -) 1 each MM PRN PRN PRN Reason: SORE THROAT Cyclobenzaprine HCl (Flexeril -) 10 mg PO BID [facility] Last Admin: 10/02/19 09:36 Dose: 10 mg Diphenhydramine HCl (Benadryl -) 50 mg PO BID [facility] Last Admin: 10/02/19 09:35 Dose: 50 mg Furosemide (Lasix -) 40 mg PO DAILY [facility] Gabapentin (Neurontin -) 600 mg PO TID [facility] Last Admin: 10/02/19 06:13 Dose: 600 mg Hydromorphone HCl (Dilaudid -) 8 mg PO Q6H PRN PRN Reason: PAIN 7 - 10; IF OXY NOT WORK Last Admin: 10/02/19 11:46 Dose: 8 mg Lorazepam (Ativan -) 2 mg PO Q8H PRN PRN Reason: ANXIETY Last Admin: 10/02/19 09:59 Dose: 2 mg Melatonin (Melatonin) 10 mg PO HS PRN PRN Reason: INSOMNIA Ondansetron HCl (Zofran Injection) 4 mg IVPUSH Q6H PRN PRN Reason: NAUSEA AND/OR VOMITING Oxycodone HCl (Roxicodone -) 30 mg PO Q8H PRN PRN Reason: PAIN LEVEL 7 - 10 Last Admin: 10/02/19 09:35 Dose: 30 mg Polyethylene Glycol (Miralax (For Daily Use) -) 17 gm PO BID [facility] Last Admin: 10/02/19 09:54 Dose: 17 gm Promethazine HCl (Phenergan Injection -) 12.5 mg IVPB Q6H PRN PRN Reason: NAUSEA AND/OR VOMITING Zolpidem Tartrate (Ambien -) 10 mg PO HS PRN PRN Reason: INSOMNIA ASSESSMENT/PLAN: Ms. Tafoya is a 59y/o female with multiple (~30) back and spine surgeries, complex global myofascial pain syndrome, recurrent spinal stenosis, multiple sclerosis, and mechanical thoracolumbar instability who presents for spinal surgery. #Complex spinal pain 2/2 mechanical instability and myofascial decompensation s/ p multi-level spinal intervention, POD 20. #BL Achilles tendonotomy POD #2 Incentive spirometry Regular diet Weight bearing per surgery Defer pain control to ortho (Shein) and anesthesiology: D/c IV ativan, resume home regimen po ativan TID Taper opioids as tolerated (now on Oxycodone 30mg Q8H prn) Gabapentin 600mg PO TID Ambien 10mg PO HS PRN Dilaudid 8mg PO Q6H PRN Benadryl, Amytriptyline, Flexeril PT eval daily. No bending, lifting (>5 lbs), or twisting for 9-12 months, f/ u 7-10 days after rehab d/c #ARDS likely 2/2 pneumonia - resolved CXR (09/28): mild congestion Zosyn 3.375gm Q8H per ID (Dr. Bennett) 10 day course completed Blood, urine, and sputum cx, no growth. Cont lasix 40mg po qd Pt satting well on RA Incentive spirometry #Normocytic anemia Hgb: 10.1, stabilized FOBT: negative Hold off on units for now Cont to monitor closely #Hypomagnesemia M.0 today Cont to monitor daily #DVT ppx SCDs #FEN D/c fluids Monitor Mg and Hb Regular diet #Dispo: Transferred to [facility] Visit type - Emergency Visit Emergency Visit: No - New Patient This patient is new to me today: No - Critical Care Critical Care patient: No ATTENDING PHYSICIAN STATEMENT I saw and evaluated the patient. I reviewed the resident's note and discussed the case with the resident. I agree with the resident's findings and plan as documented. SUBJECTIVE: OBJECTIVE: ASSESSMENT AND PLAN:
[2019-10-02] MEDS ORDERED: ONDANSETRON 4 MG/2 ML VIAL IVPUSH PRN (17:51)
[2019-10-02] MEDS ORDERED: BENZOCAINE/MENTH/CETYLPYRD CL 1 EACH LOZENGE MM PRN (17:51)
[2019-10-02] MEDS ORDERED: PROMETHAZINE HCL 25 MG/1 ML VIAL IVPB PRN (17:51)
[2019-10-02] MEDS ORDERED: ACETAMINOPHEN 1000 MG/100 ML VIAL (NON FORMULARY) IVPB PRN (17:51)
[2019-10-02] MEDS ORDERED: MELATONIN 5 MG TABLETS PO PRN (17:51)
[2019-10-02] MEDS: oxyCODONE HCL 5 MG TABLET PO PRN (18:49)
[2019-10-02] MEDS: LORazepam 1 MG TABLET PO PRN (20:01)
[2019-10-02] MEDS: AMITRIPTYLINE HCL 25 MG TABLET (FP) PO SCH (21:39)
[2019-10-02] MEDS: ZOLPIDEM TARTRATE 5 MG TABLET PO PRN (21:41)
[2019-10-03] MEDS: oxyCODONE HCL 5 MG TABLET PO PRN ×3 (01:34→19:51)
[2019-10-03] MEDS: GABAPENTIN 300 MG CAPSULE (FP) PO SCH ×3 (06:20→22:36)
[2019-10-03 07:48] LABS: HEMOGLOBIN 9.2 GM/dL (10.7-15.3); MCH 29.9 pg (25.7-33.7); MEAN CELL VOLUME 90.5 fl (80-96); MEAN PLT VOLUME 7.9 fl (7.5-11.1); PLATELET COUNT 471 K/MM3 (134-434); RBC 3.09 M/mm3 (3.60-5.2); RDW 14.5 % (11.6-15.6); WHITE BLOOD COUNT 5.7 K/mm3 (4.0-10.0)
[2019-10-03 08:15] LABS: BLOOD UREA NITROGEN 14.1 mg/dL (7-18); CALCIUM 8.7 mg/dL (8.5-10.1); CREATININE 0.5 mg/dL (0.55-1.3); POTASSIUM 4.3 mmol/L (3.5-5.1)
[2019-10-03] MEDS: diphenhydrAMINE HCL 25 MG CAPSULE (FP) PO SCH ×2 (09:08→22:36)
[2019-10-03] MEDS: CYCLOBENZAPRINE HCL 10 MG TABLET (FP) PO SCH ×2 (09:08→22:36)
[2019-10-03] MEDS: FUROSEMIDE 40 MG TABLET (FP) PO SCH (09:08)
[2019-10-03] MEDS: POLYETHYLENE GLYCOL 3350 119 GM BTL PO SCH ×2 (09:08→22:37)
--- NOTE | 2019-10-03 09:43 | PN ---
Progress Note (short form) - Note Progress Note: Neurology HISTORY OF PRESENT ILLNESS: 59 y/o female with hx of multiple (~30) back and spine surgeries, complex global myofascial pain syndrome, recurrent spinal stenosis, multiple sclerosis, mechanical thoracolumbar instability, admitted for surgical intervention and per notes completed: 1) inspection fusion mass (c-spine), 2) T1-3 laminectomies, 3) C7-T4 in situ fusion, 4) Inspection fusion mass (thoracolumbar spine), 5) posterior instrumentation T8-S1, 6) posteroir arthrodesis T8-S1, 7) bone allograft, 8) bone autograft, 9) complex wound closure (60cm). 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 Complaints of pain and pain mgmt has been consulted. Extensive conversation regarding her MS history which dates back to >10 years and reports previously on BetaSeron but felt no difference. States last MRI brain was 1 year ago, offered repeat which patient would like to defer and reports prior imaging stable and states she will not be able to stay flat and tolerate procedure. She does not want to start on MS meds and would like to focus on spinal mgmt at this time. As outpatient, would advise MRI brain with and without contrast to start with. Patient completed ruff's slide on 09/30 per note and now downgraded from ICU to telemetry floor. No complications and per patient. Slight movements of her foot but not raising lower extremities. She verbalized desire to [place]. She denies any new complaints or issues. Active Medications Amitriptyline HCl (Elavil -) 100 mg PO HS [facility] Last Admin: 10/02/19 21:39 Dose: 100 mg Benzocaine/Menthol (Cepacol Lozenge -) 1 each MM PRN PRN PRN Reason: SORE THROAT Cyclobenzaprine HCl (Flexeril -) 10 mg PO BID [facility] Last Admin: 10/03/19 09:08 Dose: 10 mg Diphenhydramine HCl (Benadryl -) 50 mg PO BID [facility] Last Admin: 10/03/19 09:08 Dose: 50 mg Furosemide (Lasix -) 40 mg PO DAILY [facility] Last Admin: 10/03/19 09:08 Dose: 40 mg Gabapentin (Neurontin -) 600 mg PO TID [facility] Last Admin: 10/03/19 06:20 Dose: 600 mg Hydromorphone HCl (Dilaudid -) 8 mg PO Q6H PRN PRN Reason: PAIN 7 - 10; IF OXY NOT WORK Last Admin: 10/03/19 06:33 Dose: 8 mg Lorazepam (Ativan -) 2 mg PO Q8H PRN PRN Reason: ANXIETY Last Admin: 10/02/19 20:01 Dose: 2 mg Melatonin (Melatonin) 10 mg PO HS PRN PRN Reason: INSOMNIA Ondansetron HCl (Zofran Injection) 4 mg IVPUSH Q6H PRN PRN Reason: NAUSEA AND/OR VOMITING Oxycodone HCl (Roxicodone -) 30 mg PO Q8H PRN PRN Reason: PAIN LEVEL 7 - 10 Last Admin: 10/03/19 01:34 Dose: 30 mg Polyethylene Glycol (Miralax (For Daily Use) -) 17 gm PO BID [facility] Last Admin: 10/03/19 09:08 Dose: 17 grams Promethazine HCl (Phenergan Injection -) 12.5 mg IVPB Q6H PRN PRN Reason: NAUSEA AND/OR VOMITING Zolpidem Tartrate (Ambien -) 10 mg PO HS PRN PRN Reason: INSOMNIA Last Admin: 10/02/19 21:41 Dose: 10 mg PHYSICAL EXAMINATION Vital Signs Period Temp Pulse Resp BP Sys/Gallagher Pulse Ox Last 24 Hr 97.6 F-98.6 F 78-85 16-20 92-125/60-78 96 GENERAL: Awake, alert, and fully oriented, in no acute distress. HEAD: Normal with no signs of trauma. EYES: Pupils equal, round and reactive to light, extraocular movements intact, sclera anicteric, conjunctiva clear. No lid lag. EARS, NOSE, THROAT: Ears normal, nares patent, oropharynx clear without exudates. Moist mucous membranes. NECK: Normal range of motion, supple without lymphadenopathy, JVD, or masses. LUNGS: Breath sounds equal, clear to auscultation bilaterally. No wheezes, and no crackles. No accessory muscle use. HEART: Regular rate and rhythm, normal S1 and S2 without murmur, rub or gallop. ABDOMEN: Soft, nontender, not distended, normoactive bowel sounds, no guarding, no rebound, no masses. No hepatomegaly or splenomegaly. MUSCULOSKELETAL: Normal range of motion at all joints. No bony deformities or tenderness. No CVA tenderness. UPPER EXTREMITIES: 2+ pulses, warm, well-perfused. No cyanosis. No clubbing. Cap refill <2 seconds. No peripheral edema. LOWER EXTREMITIES: 2+ pulses, warm, well-perfused. No calf tenderness. No peripheral edema. NEUROLOGICAL: Cranial nerves II-XII intact. Normal speech. Normal gait. PSYCHIATRIC: Cooperative. Good eye contact. Appropriate mood and affect. SKIN: Warm, dry, normal turgor, no rashes or lesions noted. 2 CBCD WBC 5.7 K/mm3 (4.0-10.0) 10/03/19 07:20 RBC 3.09 M/mm3 (3.60-5.2) L 10/03/19 07:20 Hgb 9.2 GM/dL (10.7-15.3) L 10/03/19 07:20 Hct 28.0 % (32.4-45.2) L 10/03/19 07:20 MCV 90.5 fl (80-96) 10/03/19 07:20 MCHC 33.0 g/dl (32.0-36.0) 10/03/19 07:20 RDW 14.5 % (11.6-15.6) 10/03/19 07:20 Plt Count 471 K/MM3 (134-434) H 10/03/19 07:20 MPV 7.9 fl (7.5-11.1) 10/03/19 07:20 CMP Sodium 139 mmol/L (136-145) 10/03/19 07:20 Potassium 4.3 mmol/L (3.5-5.1) 10/03/19 07:20 Chloride 103 mmol/L (98-107) 10/03/19 07:20 Carbon Dioxide 33 mmol/L (21-32) H 10/03/19 07:20 Anion Gap 3 MMOL/L (8-16) L 10/03/19 07:20 BUN 14.1 mg/dL (7-18) 10/03/19 07:20 Creatinine 0.5 mg/dL (0.55-1.3) L 10/03/19 07:20 Random Glucose 85 mg/dL (74-106) 10/03/19 07:20 Calcium 8.7 mg/dL (8.5-10.1) 10/03/19 07:20 Total Bilirubin 0.3 mg/dL (0.2-1) 09/28/19 05:15 AST 22 U/L (15-37) 09/28/19 05:15 ALT 28 U/L (13-61) 09/28/19 05:15 Alkaline Phosphatase 190 U/L (45-117) H 09/28/19 05:15 Total Protein 7.0 g/dl (6.4-8.2) 09/28/19 05:15 Albumin 2.4 g/dl (3.4-5.0) L 09/28/19 05:15 ASSESSMENT/PLAN: 59 y/o female with hx of multiple (~30) back and spine surgeries, complex global myofascial pain syndrome, recurrent spinal stenosis, multiple sclerosis, mechanical thoracolumbar instability, POD #0 s/p 1) inspection fusion mass (c- spine), 2) T1-3 laminectomies, 3) C7-T4 in situ fusion, 4) Inspection fusion mass (thoracolumbar spine), 5) posterior instrumentation T8-S1, 6) posteroir arthrodesis T8-S1, 7) bone allograft, 8) bone autograft, 9) complex wound closure (60cm). 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 Complaints of pain and pain mgmt has been consulted. Extensive conversation regarding her MS history which dates back to > 10 years and reports previously on BetaSeron but felt no difference. States last MRI brain was 1 year ago, offered repeat which patient would like to defer and reports prior imaging stable and states she will not be able to stay flat and tolerate procedure. She does not want to start on MS meds and would like to focus on spinal mgmt at this time. As outpatient, would advise MRI brain with and without contrast to start with. Patient completed ruff's slide on 09/30 per note and downgraded from ICU to telemetry on October 02. No complications and per patient. Slight movements of her foot but not raising lower extremities. She verbalized desire to attend rehabilitation [place]. She denies any new complaints or issues.. Continued Ortho follow up. Physical therapy as tolerated, rehab evaluation and placement. Fall precautions.
[2019-10-03] MEDS ORDERED: FUROSEMIDE 40 MG TABLET (FP) PO SCH (10:00)
--- NOTE | 2019-10-03 10:19 | PN ---
Teaching Attending Note Name of Resident: hCanda Graham ATTENDING PHYSICIAN STATEMENT I saw and evaluated the patient. I reviewed the resident's note and discussed the case with the resident. I agree with the resident's findings and plan as documented with exceptions below. SUBJECTIVE: Patient seen and examined. Reports spasms/generalized pain, asking for IV ativan. OBJECTIVE: Vital Signs Period Temp Pulse Resp BP Sys/Gallagher Pulse Ox Last 24 Hr 97.6 F-98.6 F 78-85 16-20 92-125/60-78 96 Intake & Output 09/30/19 10/01/19 10/02/19 10/03/19 23:59 23:59 23:59 23:59 Intake Total 1475 1100 1100 50 Output Total 1550 2600 2300 300 Balance -75 -1500 -1200 -250 Weight 192 lb 2 oz General: AA, oriented Heart - S1, S2, RRR Lungs - decreased air entry at bases. Abdomen - Soft, non-tender. Bowel Sounds normal. Extremities - bilateral LE heel dressing Home Medications Medication Instructions Recorded Amitriptyline HCl [Elavil -] 50 mg PO HS 01/16/19 Oxycodone HCl 60 mg PO Q8H 01/16/19 HYDROmorphone [Dilaudid -] 8 mg PO Q6H PRN 03/04/19 Cyclobenzaprine HCl 1 tab PO TID 03/05/19 LORazepam [Ativan] 2 mg PO TID tablet MDD 6mg 03/11/19 Amitriptyline HCl 100 mg PO TID 09/06/19 Alprazolam [Xanax] 0.5 mg PO BID 09/12/19 Fluoxetine HCl 10 mg PO BID 09/12/19 Prednisone 5 mg PO QID 09/12/19 Active Medications Amitriptyline HCl (Elavil -) 100 mg PO HS [facility] Last Admin: 10/02/19 21:39 Dose: 100 mg Benzocaine/Menthol (Cepacol Lozenge -) 1 each MM PRN PRN PRN Reason: SORE THROAT Cyclobenzaprine HCl (Flexeril -) 10 mg PO BID [facility] Last Admin: 10/03/19 09:08 Dose: 10 mg Diphenhydramine HCl (Benadryl -) 50 mg PO BID [facility] [place] Last Admin: 10/03/19 09:08 Dose: 50 mg Furosemide (Lasix -) 40 mg PO DAILY [facility] [place] Last Admin: 10/03/19 09:08 Dose: 40 mg Gabapentin (Neurontin -) 600 mg PO TID [facility] [place] Last Admin: 10/03/19 06:20 Dose: 600 mg Hydromorphone HCl (Dilaudid -) 8 mg PO Q6H PRN PRN Reason: PAIN 7 - 10; IF OXY NOT WORK Last Admin: 10/03/19 06:33 Dose: 8 mg Lorazepam (Ativan -) 2 mg PO Q8H PRN PRN Reason: ANXIETY Last Admin: 10/02/19 20:01 Dose: 2 mg Melatonin (Melatonin) 10 mg PO HS PRN PRN Reason: INSOMNIA Ondansetron HCl (Zofran Injection) 4 mg IVPUSH Q6H PRN PRN Reason: NAUSEA AND/OR VOMITING Oxycodone HCl (Roxicodone -) 30 mg PO Q8H PRN PRN Reason: PAIN LEVEL 7 - 10 Last Admin: 10/03/19 09:49 Dose: 30 mg Polyethylene Glycol (Miralax (For Daily Use) -) 17 gm PO BID [facility] [place] Last Admin: 10/03/19 09:08 Dose: 17 grams Promethazine HCl (Phenergan Injection -) 12.5 mg IVPB Q6H PRN PRN Reason: NAUSEA AND/OR VOMITING Zolpidem Tartrate (Ambien -) 10 mg PO HS PRN PRN Reason: INSOMNIA Last Admin: 10/02/19 21:41 Dose: 10 mg Laboratory Results - last 24 hr 10/03/19 10/03/19 07:20 07:20 WBC 5.7 RBC 3.09 L Hgb 9.2 L Hct 28.0 L MCV 90.5 MCH 29.9 MCHC 33.0 RDW 14.5 Plt Count 471 H MPV 7.9 Sodium 139 Potassium 4.3 Chloride 103 Carbon Dioxide 33 H Anion Gap 3 L BUN 14.1 Creatinine 0.5 L Est GFR (CKD-EPI)AfAm 124.52 Est GFR (CKD-EPI)NonAf 107.44 Random Glucose 85 Calcium 8.7 ASSESSMENT AND PLAN: 59 year old woman with PMH of Multiple Sclerosis, Morphine allergy, Lumbar spine stenosis and Multiple back and spine surgeries, Complex global myofascial pain syndrome, Recurrent spinal stenosis, Multiple sclerosis, Mechanical thoracolumbar instability s/p spinal surgery, course complicated by hypoxic respiratory failure/PNA/ARDS, now s/p bilateral achillies tenotomies -s/p Inspection fusion mass (cervical spine). 2. T1, T2, T3 laminectomies. 3. C7-T4 in situ fusion. 4. Inspection fusion mass (thoracolumbar spine). 5. Posterior instrumentation T8-S1. 6. Posterior arthrodesis T8-S1. 7. Bone allograft. 8. Bone autograft. 9. Complex wound closure on 09/09/2019 -Bilateral percutaneous Achillies tenotomies 09/30/2019 -Acute hypoxic respiratory failure/HACP/ARDS, resolved -Acute metabolic encephalopathy, due to hypoxia/sepsis, resolved -Normocytic anemia -Thrombocytosis, likely reactive -Paraparesis -Hypophosphatemia -Hypomagnesemia -Multiple Sclerosis -Lumbar spinal stenosis -Complex global myofascial pain syndrome -Recurrent spinal stenosis -Mechanical thoracolumbar instability s/p spinal surgery Plan: Weight bearing per Dr. Marina. Special boots in place. Activity/Weight bearing per Dr. Groves. S/p 10 days of zosyn. lasix 40 mg daily, respiratory status improved. Off IVF. taper opioids as tolerated. PO ativan home regimen. Monitor for sedation. Bowel regimen PT eval [id number] per surgery Dispo social work input noted. d/c in 24hours if arrangements made, And ok from orthopedic standpoint.
--- NOTE | 2019-10-03 11:11 | PN ---
Physical Exam: SUBJECTIVE: Patient seen and examined. No acute events OBJECTIVE: Vital Signs Period Temp Pulse Resp BP Sys/Gallagher Pulse Ox Last 24 Hr 97.6 F-98.6 F 78-85 16-20 92-125/60-78 96 GENERAL: The patient is awake, alert, and fully oriented, in no acute distress. EYES: PERRLA, EOMI, sclera anicteric, conjunctiva clear. NECK: Trachea midline, full range of motion, supple. LUNGS: Breath sounds equal, clear to auscultation bilaterally. HEART: Regular rate and rhythm, S1, S2 without murmur, rub or gallop. ABDOMEN: Soft, nontender, nondistended, normoactive bowel sounds. EXTREMITIES: 2+ pulses, warm, well-perfused, no edema. NEUROLOGICAL: Cranial nerves II through XII grossly intact. Motor strength upper limb 3/5, lower limb 1/5, sensations intact in all extremities. Gait not observed. PSYCH: Normal mood, normal affect. SKIN: Warm, dry, normal turgor Laboratory Results - last 24 hr 10/03/19 10/03/19 07:20 07:20 WBC 5.7 RBC 3.09 L Hgb 9.2 L Hct 28.0 L MCV 90.5 MCH 29.9 MCHC 33.0 RDW 14.5 Plt Count 471 H MPV 7.9 Sodium 139 Potassium 4.3 Chloride 103 Carbon Dioxide 33 H Anion Gap 3 L BUN 14.1 Creatinine 0.5 L Est GFR (CKD-EPI)AfAm 124.52 Est GFR (CKD-EPI)NonAf 107.44 Random Glucose 85 Calcium 8.7 Active Medications Amitriptyline HCl (Elavil -) 100 mg PO HS [facility] Last Admin: 10/02/19 21:39 Dose: 100 mg Benzocaine/Menthol (Cepacol Lozenge -) 1 each MM PRN PRN PRN Reason: SORE THROAT Cyclobenzaprine HCl (Flexeril -) 10 mg PO BID [facility] Last Admin: 10/03/19 09:08 Dose: 10 mg Diphenhydramine HCl (Benadryl -) 50 mg PO BID [facility] Last Admin: 10/03/19 09:08 Dose: 50 mg Furosemide (Lasix -) 40 mg PO DAILY [facility] Last Admin: 10/03/19 09:08 Dose: 40 mg Gabapentin (Neurontin -) 600 mg PO TID [facility] Last Admin: 10/03/19 06:20 Dose: 600 mg Hydromorphone HCl (Dilaudid -) 8 mg PO Q6H PRN PRN Reason: PAIN 7 - 10; IF OXY NOT WORK Last Admin: 10/03/19 06:33 Dose: 8 mg Lorazepam (Ativan -) 2 mg PO Q8H PRN PRN Reason: ANXIETY Last Admin: 10/02/19 20:01 Dose: 2 mg Melatonin (Melatonin) 10 mg PO HS PRN PRN Reason: INSOMNIA Ondansetron HCl (Zofran Injection) 4 mg IVPUSH Q6H PRN PRN Reason: NAUSEA AND/OR VOMITING Oxycodone HCl (Roxicodone -) 30 mg PO Q8H PRN PRN Reason: PAIN LEVEL 7 - 10 Last Admin: 10/03/19 09:49 Dose: 30 mg Polyethylene Glycol (Miralax (For Daily Use) -) 17 gm PO BID [facility] Last Admin: 10/03/19 09:08 Dose: 17 grams Promethazine HCl (Phenergan Injection -) 12.5 mg IVPB Q6H PRN PRN Reason: NAUSEA AND/OR VOMITING Zolpidem Tartrate (Ambien -) 10 mg PO HS PRN PRN Reason: INSOMNIA Last Admin: 10/02/19 21:41 Dose: 10 mg ASSESSMENT/PLAN: Ms. Tafoya is a 59y/o female with multiple (~30) back and spine surgeries, complex global myofascial pain syndrome, recurrent spinal stenosis, multiple sclerosis, and mechanical thoracolumbar instability who presents for spinal surgery. #Complex spinal pain 2/2 mechanical instability and myofascial decompensation s/ p multi-level spinal intervention, POD 20. #BL Achilles tendonotomy POD #3 Incentive spirometry Regular diet Weight bearing per surgery Defer pain control to ortho (Shein) and anesthesiology: D/c IV ativan, resume home regimen po ativan TID Taper opioids as tolerated (now on Oxycodone 30mg Q8H prn) Gabapentin 600mg PO TID Ambien 10mg PO HS PRN Dilaudid 8mg PO Q6H PRN Benadryl, Amytriptyline, Flexeril PT eval daily. No bending, lifting (>5 lbs), or twisting for 9-12 months, f/ u 7-10 days after rehab d/c #ARDS likely 2/2 pneumonia - resolved CXR (09/28): mild congestion Zosyn 3.375gm Q8H per ID (Dr. Bennett) 10 day course completed Blood, urine, and sputum cx, no growth. Cont lasix 40mg po qd Pt satting well on RA Incentive spirometry #Normocytic anemia Hgb: 10.1, stabilized FOBT: negative Hold off on units for now Cont to monitor closely #Hypomagnesemia M.0 today Cont to monitor daily #DVT ppx SCDs #FEN D/c fluids Monitor Mg and Hb Regular diet #Dispo: Transferred to med-surg SNF Visit type - Emergency Visit Emergency Visit: No - New Patient This patient is new to me today: No - Critical Care Critical Care patient: No ATTENDING PHYSICIAN STATEMENT I saw and evaluated the patient. I reviewed the resident's note and discussed the case with the resident. I agree with the resident's findings and plan as documented. SUBJECTIVE: OBJECTIVE: ASSESSMENT AND PLAN:
[2019-10-03] MEDS: LORazepam 1 MG TABLET PO PRN (14:09)
[2019-10-03] MEDS: AMITRIPTYLINE HCL 25 MG TABLET (FP) PO SCH (22:36)
[2019-10-03] MEDS: ZOLPIDEM TARTRATE 5 MG TABLET PO PRN (22:38)
[2019-10-04] MEDS: GABAPENTIN 300 MG CAPSULE (FP) PO SCH ×2 (06:09→14:12)
--- NOTE | 2019-10-04 07:54 | DS ---
Physical Exam: SUBJECTIVE: Patient seen and examined. No acute events overnight. No fevers or chills. Pain controlled. OBJECTIVE: Vital Signs Period Temp Pulse Resp BP Sys/Gallagher Pulse Ox Last 24 Hr 98.3 F-98.8 F 77-85 18-20 104-121/58-73 98-98 PHYSICAL EXAM GENERAL: The patient is awake, alert, and fully oriented, in no acute distress. EYES: PERRLA, EOMI, sclera anicteric, conjunctiva clear. NECK: Trachea midline, full range of motion, supple. LUNGS: Breath sounds equal, clear to auscultation bilaterally. HEART: Regular rate and rhythm, S1, S2 without murmur, rub or gallop. ABDOMEN: Soft, nontender, nondistended, normoactive bowel sounds. EXTREMITIES: 2+ pulses, warm, well-perfused, no edema. Surgical dressing clean dry and intact. NEUROLOGICAL: Cranial nerves II through XII grossly intact. Motor strength upper limb 3/5, lower limb 1/5, sensations intact in all extremities. Gait not observed. PSYCH: Normal mood, normal affect. SKIN: Warm, dry, normal turgor LABS Laboratory Results - last 24 hr 10/03/19 10/03/19 07:20 07:20 WBC 5.7 RBC 3.09 L Hgb 9.2 L Hct 28.0 L MCV 90.5 MCH 29.9 MCHC 33.0 RDW 14.5 Plt Count 471 H MPV 7.9 Sodium 139 Potassium 4.3 Chloride 103 Carbon Dioxide 33 H Anion Gap 3 L BUN 14.1 Creatinine 0.5 L Est GFR (CKD-EPI)AfAm 124.52 Est GFR (CKD-EPI)NonAf 107.44 Random Glucose 85 Calcium 8.7 HOSPITAL COURSE: Date of Admission:09/09/19 Ms. Tfaoya is a 59y/o female with multiple (~30) back and spine surgeries, complex global myofascial pain syndrome, recurrent spinal stenosis, multiple sclerosis, and mechanical thoracolumbar instability who presents for spinal surgery. She received posterior thoracic decompression, cervicothoracic in situ fusion, and revision thoracolumbar instrumented fusion on 09/09/19. Pt was transferred to the ICU post-operatively for management. Pt was then scheduled for Aguilar's Slide procedure which was delayed due to medical condition. Her hospital course was complicated by pneumonia and ARDS. She was treat with 10 days of zosyn, IV lasix, and HFOT. She was eventually weaned off the HFOT to venti mask to NC and now sats well on room air. Her IV lasix was decreased to 40mg daily po. Daily CXR showed improvement in her ARDS. Pt received Aguilar's Slide surgery on 09/30/19 withour any complications. She is medically cleared to be discharged to Acute Rehab to complete physical therapy. Date of Discharge: 10/04/19 Discharge Summary Reason For Visit: DISC DEGENERATION Current Active Problems Foot drop, right (Acute) S/P hardware removal (Acute) Status post hardware removal (Acute) Condition: Stable - Instructions Diet, Activity, Other Instructions: You were admitted to the hospital for spinal surgery and surgery on your achilles tendons by Dr. Marina. You will be discharged to a snf facility to continue with physical therapy. Medications: - Resume all home medications as prescribed. Follow-up: - Please see Dr. Marina 7-10 days after discharge from rehab facility. Please call [facility] [place] office; call for appointment; - Please see your primary care provider one week after discharge from rehab facility. Additional instructions from Dr. Marina: - Do not make any sudden turns, lean over, or lift anything greater than 5 pounds for 9-12 months. - Please wear the ankle foot orthosis splints as directed. - Log roll/place on wedge pillows every 2 hours; rolled up towels under the ankles to offload the heels. Return to the emergency room if your surgical site gets red, warm, drains, or you get a fever above 101. Referrals: Shayan Marina MD [Staff Physician] - Disposition: [facility] - Home Medications Comprehensive Discharge Medication List: Ambulatory Orders Alprazolam [Xanax] 0.5 mg PO BID 09/12/19 Fluoxetine HCl 10 mg PO BID 09/12/19 Amitriptyline HCl [Elavil -] 100 mg PO HS tablet 10/04/19 Cyclobenzaprine HCl [Flexeril -] 10 mg PO BID tablet 10/04/19 Furosemide [Lasix -] 40 mg PO DAILY tablet 10/04/19 Gabapentin [Neurontin -] 600 mg PO TID capsule 10/04/19 HYDROmorphone [Dilaudid -] 2 mg PO Q3H PRN tablet MDD 16 10/04/19 LORazepam [Ativan] 2 mg PO Q8H PRN tablet MDD 6 10/04/19 Polyethylene Glycol 3350 [Miralax 119 gm Btl -] 17 gm PO BID bottle 10/04/19 oxyCODONE HCL [Roxicodone -] 5 mg PO Q4H PRN tablet MDD 30 10/04/19 oxyCODONE SR [Oxycontin] 20 mg PO BID #1 tab.er.12h MDD 40 10/04/19 - Discharge Referral Referred to [facility] No ATTENDING PHYSICIAN STATEMENT I saw and evaluated the patient. I reviewed the resident's note and discussed the case with the resident. I agree with the resident's findings and plan as documented. SUBJECTIVE: OBJECTIVE: ASSESSMENT AND PLAN:
--- NOTE | 2019-10-04 08:44 | PN ---
Progress Note (short form) - Note Progress Note: Neurology HISTORY OF PRESENT ILLNESS: 59 y/o female with hx of multiple (~30) back and spine surgeries, complex global myofascial pain syndrome, recurrent spinal stenosis, multiple sclerosis, mechanical thoracolumbar instability, admitted for surgical intervention and per notes completed: 1) inspection fusion mass (c-spine), 2) T1-3 laminectomies, 3) C7-T4 in situ fusion, 4) Inspection fusion mass (thoracolumbar spine), 5) posterior instrumentation T8-S1, 6) posteroir arthrodesis T8-S1, 7) bone allograft, 8) bone autograft, 9) complex wound closure (60cm). 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 Complaints of pain and pain mgmt has been consulted. Extensive conversation regarding her MS history which dates back to >10 years and reports previously on BetaSeron but felt no difference. States last MRI brain was 1 year ago, offered repeat which patient would like to defer and reports prior imaging stable and states she will not be able to stay flat and tolerate procedure. She does not want to start on MS meds and would like to focus on spinal mgmt at this time. As outpatient, would advise MRI brain with and without contrast to start with. Patient completed ruff's slide on 09/30 per note and now downgraded from ICU to telemetry floor. No complications and per patient. Slight movements of her foot but not raising lower extremities. She verbalized [place] Per notes, facility accepted but patient feels she's not ready for dischargeand is planning to appeal discharge. Active Medications Amitriptyline HCl (Elavil -) 100 mg PO HS [facility] Last Admin: 10/03/19 22:36 Dose: 100 mg Benzocaine/Menthol (Cepacol Lozenge -) 1 each MM PRN PRN PRN Reason: SORE THROAT Cyclobenzaprine HCl (Flexeril -) 10 mg PO BID [facility] Last Admin: 10/03/19 22:36 Dose: 10 mg Diphenhydramine HCl (Benadryl -) 50 mg PO BID [facility] Last Admin: 10/03/19 22:36 Dose: 50 mg Furosemide (Lasix -) 40 mg PO DAILY [facility] Last Admin: 10/03/19 09:08 Dose: 40 mg Gabapentin (Neurontin -) 600 mg PO TID [facility] Last Admin: 10/04/19 06:09 Dose: 600 mg Hydromorphone HCl (Dilaudid -) 8 mg PO Q6H PRN PRN Reason: PAIN 7 - 10; IF OXY NOT WORK Last Admin: 10/03/19 16:05 Dose: 8 mg Lorazepam (Ativan -) 2 mg PO Q8H PRN PRN Reason: ANXIETY Last Admin: 10/03/19 14:09 Dose: 2 mg Melatonin (Melatonin) 10 mg PO HS PRN PRN Reason: INSOMNIA Ondansetron HCl (Zofran Injection) 4 mg IVPUSH Q6H PRN PRN Reason: NAUSEA AND/OR VOMITING Oxycodone HCl (Roxicodone -) 30 mg PO Q8H PRN PRN Reason: PAIN LEVEL 7 - 10 Last Admin: 10/03/19 19:51 Dose: 30 mg Polyethylene Glycol (Miralax (For Daily Use) -) 17 gm PO BID [facility] Last Admin: 10/03/19 22:37 Dose: 17 grams Promethazine HCl (Phenergan Injection -) 12.5 mg IVPB Q6H PRN PRN Reason: NAUSEA AND/OR VOMITING Zolpidem Tartrate (Ambien -) 10 mg PO HS PRN PRN Reason: INSOMNIA Last Admin: 10/03/19 22:38 Dose: 10 mg PHYSICAL EXAMINATION Vital Signs Period Temp Pulse Resp BP Sys/Gallagher Pulse Ox Last 24 Hr 98.3 F-98.8 F 77-85 18-20 104-121/58-73 98-98 GENERAL: Awake, alert, and fully oriented, in no acute distress. HEAD: Normal with no signs of trauma. EYES: Pupils equal, round and reactive to light, extraocular movements intact, sclera anicteric, conjunctiva clear. No lid lag. EARS, NOSE, THROAT: Ears normal, nares patent, oropharynx clear without exudates. Moist mucous membranes. NECK: Normal range of motion, supple without lymphadenopathy, JVD, or masses. LUNGS: Breath sounds equal, clear to auscultation bilaterally. No wheezes, and no crackles. No accessory muscle use. HEART: Regular rate and rhythm, normal S1 and S2 without murmur, rub or gallop. ABDOMEN: Soft, nontender, not distended, normoactive bowel sounds, no guarding, no rebound, no masses. No hepatomegaly or splenomegaly. MUSCULOSKELETAL: Normal range of motion at all joints. No bony deformities or tenderness. No CVA tenderness. UPPER EXTREMITIES: 2+ pulses, warm, well-perfused. No cyanosis. No clubbing. Cap refill <2 seconds. No peripheral edema. LOWER EXTREMITIES: 2+ pulses, warm, well-perfused. No calf tenderness. No peripheral edema. NEUROLOGICAL: Cranial nerves II-XII intact. Normal speech. Normal gait. PSYCHIATRIC: Cooperative. Good eye contact. Appropriate mood and affect. SKIN: Warm, dry, normal turgor, no rashes or lesions noted. 2 CBCD WBC 5.7 K/mm3 (4.0-10.0) 10/03/19 07:20 RBC 3.09 M/mm3 (3.60-5.2) L 10/03/19 07:20 Hgb 9.2 GM/dL (10.7-15.3) L 10/03/19 07:20 Hct 28.0 % (32.4-45.2) L 10/03/19 07:20 MCV 90.5 fl (80-96) 10/03/19 07:20 MCHC 33.0 g/dl (32.0-36.0) 10/03/19 07:20 RDW 14.5 % (11.6-15.6) 10/03/19 07:20 Plt Count 471 K/MM3 (134-434) H 10/03/19 07:20 MPV 7.9 fl (7.5-11.1) 10/03/19 07:20 CMP Sodium 139 mmol/L (136-145) 10/03/19 07:20 Potassium 4.3 mmol/L (3.5-5.1) 10/03/19 07:20 Chloride 103 mmol/L (98-107) 10/03/19 07:20 Carbon Dioxide 33 mmol/L (21-32) H 10/03/19 07:20 Anion Gap 3 MMOL/L (8-16) L 10/03/19 07:20 BUN 14.1 mg/dL (7-18) 10/03/19 07:20 Creatinine 0.5 mg/dL (0.55-1.3) L 10/03/19 07:20 Random Glucose 85 mg/dL (74-106) 10/03/19 07:20 Calcium 8.7 mg/dL (8.5-10.1) 10/03/19 07:20 Total Bilirubin 0.3 mg/dL (0.2-1) 09/28/19 05:15 AST 22 U/L (15-37) 09/28/19 05:15 ALT 28 U/L (13-61) 09/28/19 05:15 Alkaline Phosphatase 190 U/L (45-117) H 09/28/19 05:15 Total Protein 7.0 g/dl (6.4-8.2) 09/28/19 05:15 Albumin 2.4 g/dl (3.4-5.0) L 09/28/19 05:15 ASSESSMENT/PLAN: 59 y/o female with hx of multiple (~30) back and spine surgeries, complex global myofascial pain syndrome, recurrent spinal stenosis, multiple sclerosis, mechanical thoracolumbar instability, POD #0 s/p 1) inspection fusion mass (c- spine), 2) T1-3 laminectomies, 3) C7-T4 in situ fusion, 4) Inspection fusion mass (thoracolumbar spine), 5) posterior instrumentation T8-S1, 6) posteroir arthrodesis T8-S1, 7) bone allograft, 8) bone autograft, 9) complex wound closure (60cm). 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 Complaints of pain and pain mgmt has been consulted. Extensive conversation regarding her MS history which dates back to > 10 years and reports previously on BetaSeron but felt no difference. States last MRI brain was 1 year ago, offered repeat which patient would like to defer and reports prior imaging stable and states she will not be able to stay flat and tolerate procedure. She does not want to start on MS meds and would like to focus on spinal mgmt at this time. As outpatient, would advise MRI brain with and without contrast to start with. Patient completed ruff's slide on 09/30 per note and downgraded from ICU to telemetry on October 02. No complications and per patient. Slight movements of her foot but not raising lower extremities. Per notes, facility accepted but patient feels she's not ready for dischargeand is planning to appeal discharge. She denies any new complaints or issues.. Continued Ortho follow up. Physical therapy as tolerated, rehab evaluation and placement. Fall precautions.
[2019-10-04] MEDS: oxyCODONE HCL 5 MG TABLET PO PRN (09:14)
[2019-10-04] MEDS: diphenhydrAMINE HCL 25 MG CAPSULE (FP) PO SCH (09:15)
[2019-10-04] MEDS: CYCLOBENZAPRINE HCL 10 MG TABLET (FP) PO SCH (09:15)
[2019-10-04] MEDS: FUROSEMIDE 40 MG TABLET (FP) PO SCH (09:16)
[2019-10-04] MEDS: POLYETHYLENE GLYCOL 3350 119 GM BTL PO SCH (09:16)
[2019-10-04] MEDS: LORazepam 1 MG TABLET PO PRN (10:24)
--- NOTE | 2019-10-04 13:07 | PN ---
Teaching Attending Note Name of Resident: Chanda Graham ATTENDING PHYSICIAN STATEMENT I saw and evaluated the patient. I reviewed the resident's note and discussed the case with the resident. I agree with the resident's findings and plan as documented with exceptions below. SUBJECTIVE: Patient seen and examined. agreable to SNF in the area. Refuses removal of guzman. OBJECTIVE: Vital Signs Period Temp Pulse Resp BP Sys/Gallagher Pulse Ox Last 24 Hr 98.3 F-98.8 F 77-87 18-20 104-121/58-73 98-98 Intake & Output 10/01/19 10/02/19 10/03/19 10/04/19 23:59 23:59 23:59 23:59 Intake Total 1100 1100 400 Output Total 2600 2300 1650 300 Balance -1500 -1200 -1250 -300 Weight 192 lb 2 oz General: lying in bed in no acute distress ch ASSESSMENT AND PLAN: 59 year old woman with PMH of Multiple Sclerosis, Morphine allergy, Lumbar spine stenosis and Multiple back and spine surgeries, Complex global myofascial pain syndrome, Recurrent spinal stenosis, Multiple sclerosis, Mechanical thoracolumbar instability s/p spinal surgery, course complicated by hypoxic respiratory failure/PNA/ARDS, now s/p bilateral achillies tenotomies -s/p Inspection fusion mass (cervical spine). 2. T1, T2, T3 laminectomies. 3. C7-T4 in situ fusion. 4. Inspection fusion mass (thoracolumbar spine). 5. Posterior instrumentation T8-S1. 6. Posterior arthrodesis T8-S1. 7. Bone allograft. 8. Bone autograft. 9. Complex wound closure on 09/09/2019 -Bilateral percutaneous Achillies tenotomies 09/30/2019 -Acute hypoxic respiratory failure/HACP/ARDS, resolved -Acute metabolic encephalopathy, due to hypoxia/sepsis, resolved -Normocytic anemia -Thrombocytosis, likely reactive -Paraparesis -Hypophosphatemia -Hypomagnesemia -Multiple Sclerosis -Lumbar spinal stenosis -Complex global myofascial pain syndrome -Recurrent spinal stenosis -Mechanical thoracolumbar instability s/p spinal surgery Plan: Weight bearing per Dr. Marina. Special boots in place. Activity/Weight bearing per Dr. Groves. S/p 10 days of zosyn. lasix 40 mg daily, respiratory status improved. Off IVF. taper opioids as tolerated. Outpatient pain management follow up. PO ativan home regimen. Monitor for sedation. Bowel regimen PT eval [id number] per surgery Dispo social work input noted. Patient agreeable to SNF in the area. Discussed with social work. Dispo arranged for [facility]. Discussed with patient and at bedside. patient declines guzman removal, stating wants to do it when more ambulatory and relays understanding risks including UTI, sepsis and .
[2019-10-04 15:09] VITALS: BP 104/60; PULSE 91; TEMP 99
== END 2019-10-04 16:44 | DRG 453 ==
LOC: JSAMEDAYSX 06:37 → JICU 20:47 → J2W 09-28 19:50 → JICU 09-30 15:24 → J4W 10-01 19:45 → J8W 10-02 17:29
PROVIDERS: ADMIT Orthopaedic Surgery Orthopaedic Surgery of the Spine; ATTEND Hospitalist
PROC: 0RG7071 Fusion of 2 to 7 Thoracic Vertebral Joints with Autologous Tissue Substitute, Posterior Approach, Posterior Column, Open Approach (ICD-10-PCS; 2019-09-09)
PROC: 0SG10A0 Fusion of 2 or more Lumbar Vertebral Joints with Interbody Fusion Device, Anterior Approach, Anterior Column, Open Approach (ICD-10-PCS; 2019-09-09)
PROC: 0SG1071 Fusion of 2 or more Lumbar Vertebral Joints with Autologous Tissue Substitute, Posterior Approach, Posterior Column, Open Approach (ICD-10-PCS; 2019-09-09)
PROC: 0SG30AJ Fusion of Lumbosacral Joint with Interbody Fusion Device, Posterior Approach, Anterior Column, Open Approach (ICD-10-PCS; 2019-09-09)
PROC: 0SG3071 Fusion of Lumbosacral Joint with Autologous Tissue Substitute, Posterior Approach, Posterior Column, Open Approach (ICD-10-PCS; 2019-09-09)
PROC: B01BZZZ Fluoroscopy of Spinal Cord (ICD-10-PCS; 2019-09-09)
PROC: 4A1004G Monitoring of Central Nervous Electrical Activity, Intraoperative, Open Approach (ICD-10-PCS; 2019-09-09)
PROC: 0RG70AJ Fusion of 2 to 7 Thoracic Vertebral Joints with Interbody Fusion Device, Posterior Approach, Anterior Column, Open Approach (ICD-10-PCS; principal; 2019-09-09 08:00)
PROC: 05HN33Z Insertion of Infusion Device into Left Internal Jugular Vein, Percutaneous Approach (ICD-10-PCS; 2019-09-19)
PROC: 0L8P3ZZ Division of Left Lower Leg Tendon, Percutaneous Approach (ICD-10-PCS; 2019-09-30)
PROC: 0L8N3ZZ Division of Right Lower Leg Tendon, Percutaneous Approach (ICD-10-PCS; 2019-09-30)
PROC: 0LN Tendons, Release (ICD-10-PCS; 2019-09-30)
PROC: 0LNN3ZZ Release Right Lower Leg Tendon, Percutaneous Approach (ICD-10-PCS; 2019-09-30)
DX: M40.204 Unspecified kyphosis, thoracic region (principal); G92 Toxic encephalopathy; A41.9 Sepsis, unspecified organism; J18.9 Pneumonia, unspecified organism; J96.01 Acute respiratory failure with hypoxia; G82.20 Paraplegia, unspecified; F11.20 Opioid dependence, uncomplicated; N39.0 Urinary tract infection, site not specified; J90 Pleural effusion, not elsewhere classified; M47.14 Other spondylosis with myelopathy, thoracic region; E87.6 Hypokalemia; D64.9 Anemia, unspecified; D47.3 Essential (hemorrhagic) thrombocythemia; E83.39 Other disorders of phosphorus metabolism; E83.42 Hypomagnesemia; G35 Multiple sclerosis; M48.061 Spinal stenosis, lumbar region without neurogenic claudication; E87.70 Fluid overload, unspecified; M67.02 Short Achilles tendon (acquired), left ankle; M67.01 Short Achilles tendon (acquired), right ankle; R00.0 Tachycardia, unspecified; F41.8 Other specified anxiety disorders; M21.6X2 Other acquired deformities of left foot; M21.6X1 Other acquired deformities of right foot
CPT/HCPCS: 36415; 36600; 71045-TC-FY; 71275-TC; 74018-TC-FY; 80048; 80053; 81003; 82272; 82803; 83735; 84100; 85025; 85027; 85610; 85730; 86850; 86891; 86900; 86901; 86922; 87040; 87086; 87899; 88304-TC; 93306-TC; 93970-TC; 94010; 94760; 97116-GP; 97162-GP; J0131; J0475; J1644; J7030

== ENCOUNTER 2019-10-21 18:06 | Inpatient (IN) | payer OTHER, MEDICARE ==
--- NOTE | 2019-10-21 18:47 | PDOC ---
History of Present Illness - General Chief Complaint: SIRS, Suspected/Possible Stated Complaint: FEVER Time Seen by Provider: 10/21/19 18:14 History Source: Patient Exam Limitations: No Limitations - History of Present Illness Initial Comments: 10/21/19 18:47 Patient is a 59 year old female with PMH of multiple (~30) back and spine surgeries, complex global myofascial pain syndrome, recurrent spinal stenosis, multiple sclerosis, and mechanical thoracolumbar instability, recently admitted in August for posterior thoracic decompression, cervicothoracic in situ fusion , and revision thoracolumbar instrumented fusion on 09/09/19. Pt has since been at [facility] for physical therapy. She was brought in today for a reported fever of 102. Pt recently completed a 10 day course of Augmentin for cellulitis of her surgical site. She denies any chest pain, SOB, chills, nausea , vomiting, headaches, abdominal pain, appetite changes, weakness, and has overall felt well. Denies pain or drainage from her surgical site over the past week. Has been doing well with PT. Ortho: Dr. Marina PCP: Dr. Vipul Waller Allergies: Morphine Past surgical history: as per HPI. Social history: Denies history of smoking, alcohol use or illicit drug use. 10/21/19 19:27 10/22/19 00:07 Past History - Past Medical History Allergies/Adverse Reactions: Allergies Allergy/AdvReac Type Severity Reaction Status Date / Time latex Allergy "couldn't Verified 10/21/19 18:48 breathe" morphine Allergy "itching Verified 10/21/19 18:48 from inside out" titanium Allergy Rash Verified 10/21/19 18:48 Home Medications: Ambulatory Orders Amitriptyline HCl [Elavil -] 100 mg PO HS tablet 10/04/19 Cyclobenzaprine HCl [Flexeril -] 10 mg PO BID tablet 10/04/19 Furosemide [Lasix -] 40 mg PO DAILY tablet 10/04/19 Gabapentin [Neurontin -] 600 mg PO TID capsule 10/04/19 LORazepam [Ativan] 2 mg PO Q8H PRN tablet MDD 6 10/04/19 oxyCODONE HCL [Roxicodone -] 30 mg PO Q8H PRN #20 tablet MDD 90 mg 10/04/19 Acetaminophen 650 mg PO Q6H 10/21/19 Docusate Sodium [Colace] 100 mg PO DAILY 10/21/19 HYDROmorphone [Dilaudid -] 2 mg PO Q4H PRN 10/21/19 Magnesium Hydrox 2400MG/30Ml [Milk of Magnesia -] 30 ml PO ONCE PRN 10/21/19 Nystatin Ointment [Mycostatin Ointment -] 1 applic TP BID 10/21/19 Zolpidem Tartrate [Ambien] 10 mg PO HS 10/21/19 Anemia: No Asthma: No Cancer: No Cardiac Disorders: No CVA: No COPD: No CHF: No Dementia: No Diabetes: No GI Disorders: No Disorders: No HTN: No Hypercholesterolemia: No Liver Disease: No Seizures: No Thyroid Disease: No - Surgical History Abdominal Surgery: No Appendectomy: Yes Cardiac Surgery: No Cholecystectomy: No Lung Surgery: No Neurologic Surgery: No (back surgery- multiple) Orthopedic Surgery: Yes (back surgeries) - Psycho Social/Smoking Cessation Hx Smoking History: Never smoked Have you smoked in the past 12 months: No If you are a former smoker, when did you quit?: 1yr Hx Alcohol Use: Yes (socially) Drug/Substance Use Hx: No Substance Use Type: Alcohol Hx Substance Use Treatment: No Review of Systems - Review of Systems Able to Perform ROS?: Yes Constitutional: Yes: Chills, Fever. No: Symptoms Reported, See HPI, Diaphoresis , Loss of Appetite, Malaise, Night Sweats, Weakness, Weight Stable, Unintentional Wgt. Loss, Unexplained wgt Loss, Other HEENTM: No: Symptoms Reported, See HPI, Eye Pain, Blurred Vision, Tearing, Recent change in vision, Double Vision, Cataracts, Ear Pain, Ocular Prothesis, Ear Discharge, Nose Pain, Nose Congestion, Tinnitus, Nose Bleeding, Hearing Loss , Throat Pain, Throat Swelling, Mouth Pain, Dental Problems, Difficulty Swallowing, Mouth Swelling, Other Respiratory: No: Symptoms reported, See HPI, Cough, Orthopnea, Shortness of Breath, SOB with Exertion, SOB at Rest, Stridor, Wheezing, Productive cough, Hemoptysis, Other Cardiac (ROS): No: Symptoms Reported, See HPI, Chest Pain, Edema, Irregular Heart Rate, Lightheadedness, Palpitations, Syncope, Chest Tightness, Other ABD/GI: No: Symptoms Reported, See HPI, Abdominal Distended, Abd. Pain w/ defecation, Blood Streaked Bowels, Constipated, Diarrhea, Difficulty Swallowing , Nausea, Poor Appetite, Poor Fluid Intake, Rectal Bleeding, Vomiting, Indigestion, Abdominal cramping, Tarry Stools, Other : No: Symptoms Reported, See HPI, Burning, Dysuria, Discharge, Frequency, Flank Pain, Hematuria, Incontinence, Pain, Urgency, Testicular Mass, Testicular Swelling, Lesions, Testicular Pain, Other Musculoskeletal: No: Symptoms Reported, See HPI, Back Pain, Gout, Joint Pain, Joint Swelling, Muscle Pain, Muscle Weakness, Neck Pain, Joint Stiffness, Other Neurological: Yes: Numbness, Paresthesia. No: Headache *Physical Exam - Physical Exam General Appearance: Yes: Nourished, Mild Distress. No: Appropriately Dressed, Apparent Distress, Disheveled, Moderate Distress, Severe Distress, Alcohol on Breath, Intoxicated, Cachetic, Obese, Thin, Other HEENT: positive: EOMI, IRV[place], Normal Voice Neck: positive: Trachea midline, Normal Thyroid Respiratory/Chest: positive: Lungs Clear, Normal Breath Sounds. negative: Chest Tender, Respiratory Distress, Accessory Muscle Use, Crackles, Wheezing Cardiovascular: positive: Regular Rhythm, Regular Rate, S1, S2. negative: Edema , JVD, Murmur Vascular Pulses: Dorsalis-Pedis (R): 2+, Doralis-Pedis (L): 2+ ED Treatment Course - LABORATORY CBC & Chemistry Diagram: 10/21/19 20:40 10/21/19 22:35 Medical Decision Making - Medical Decision Making 10/21/19 19:35 >> Sepsis workup - CBC, CMP, CXR, UA, cultures 10/22/19 00:03 >> Attempted to call Dr. Marina with no success WBC: 17.6 Lactic neg 2.0 CXR: R lung infiltrate on preliminary reading >> Will give 1gm vanc, 3.375mg zosyn empirically 10/22/19 00:07 10/22/19 00:14 Discharge - Discharge Information Problems reviewed: Yes Clinical Impression/Diagnosis: Pneumonia Qualifiers: Pneumonia type: due to unspecified organism Laterality: right Lung location: unspecified part of lung Qualified Code(s): J18.9 - Pneumonia, unspecified organism - Admission Yes - Follow up/Referral Referrals: Vipul Waller MD [Primary Care Provider] - - Patient Discharge Instructions - Post Discharge Activity
--- NOTE | 2019-10-21 20:45 | PDOC ---
Documentation entered by Sheri Maza SCRIBE, acting as scribe for Bailey Eisenberg MD. Bailey Eisenberg MD: This documentation has been prepared by the Link blanca Brenda, SCRIBE, under my direction and personally reviewed by me in its entirety. I confirm that the documentation accurately reflects all work, treatment, procedures, and medical decision making performed by me. Attending Attestation - Resident Resident Name: Chanda Graham - ED Attending Attestation I have performed the following: I have examined & evaluated the patient, The case was reviewed & discussed with the resident, I agree w/resident's findings & plan, Exceptions are as noted - HPI HPI: 10/21/19 19:59 The patient is a 59 year old female, with a significant PMH of Multiple Sclerosis, Lumbar spine stenosis and Multiple back and spine surgeries, Complex global myofascial pain syndrome, Recurrent spinal stenosis, Mechanical thoracolumbar instability s/p spinal surgery, course complicated by hypoxic respiratory failure/PNA/ARDS, now s/p bilateral achilles tenotomies, who presents to the emergency department from [facility] for [facility] Therapy (since last surgery) with a reported fever of 102. Patient recently completed a 10 day antibiotic course for cellulitis on her surgical sight ( augmentum), as per Rehab. Ortho: Dr. Marina PCP: Dr. Vipul Waller The patient denies chest pain, shortness of breath, headache and dizziness. Denies nausea, vomiting, diarrhea and constipation. Denies dysuria, frequency, urgency and hematuria. Denies any other symptoms. States PT is going well. Allergies: Morphine Past surgical history: Stated in HPI. Social history: Denies history of smoking, alcohol use or illicit drug use. Ortho: Dr. Marina PCP: Dr. Matthew - Physicial Exam PE: 10/21/19 19:36 GENERAL: Well-appearing, well-nourished. No apparent distress. HEENT: Normocephalic, atraumatic. PERRL, EOM intact. No JVD CARDIOVASCULAR: Normal S1, S2. Regular rate and rhythm. PULMONARY: Clear to auscultation bilaterally. ABDOMEN: Soft, non-distended, non-tender. BACK: No erythema and purulent drainage on site of spinal surgery. EXTREMITIES: (+) Nonambulatory due to pain and weakness following spinal surgery. Normal ROM in all four extremities. No gross deformities. SKIN: Warm, dry. No rash NEUROLOGICAL: No focal neurological deficits. - Medical Decision Making 10/21/19 20:44 Blood culture, urine, urine culture, CBC, chemistry, coags are sent 10/22/19 01:48 cxr ++infiltrates admitted fr IV antibiotics
[2019-10-21 21:19] LABS: BASO % 0.6 % (0-2.0); EOS % 1.5 % (0-4.5); HEMATOCRIT 32.8 % (32.4-45.2); HEMOGLOBIN 10.7 GM/dL (10.7-15.3); LYMPH % 10.2 % (8-40); MCH 28.8 pg (25.7-33.7); MCHC 32.7 g/dl (32.0-36.0); MEAN CELL VOLUME 88.2 fl (80-96); MEAN PLT VOLUME 8.7 fl (7.5-11.1); MONO % 3.5 % (3.8-10.2); NEUT % 84.2 % (42.8-82.8); PLATELET COUNT 426 K/MM3 (134-434); RBC 3.72 M/mm3 (3.60-5.2); RDW 14.3 % (11.6-15.6); WHITE BLOOD COUNT 17.6 K/mm3 (4.0-10.0)
[2019-10-21 21:30] LABS: INR 1.15 (0.83-1.09); PROTHROMBIN TIME (PATIENT) 13.6 SEC (9.7-13.0)
[2019-10-21 21:41] LABS: ALBUMIN 2.8 g/dl (3.4-5.0); BILIRUBIN,TOTAL 0.6 mg/dL (0.2-1); BLOOD UREA NITROGEN 13.1 mg/dL (7-18); CREATININE 0.7 mg/dL (0.55-1.3); POTASSIUM 5.5 mmol/L (3.5-5.1); TOT PROT 8.1 g/dl (6.4-8.2)
[2019-10-21 22:30] LABS: EPI CELLS 1.3 /HPF (0-5/HPF); HYALINE CASTS 3 /lpf (0-8); PH,URINE >= 9.0 (5.0-8.0); URINE APPEARANCE CLEAR; URINE BACTERIA 1.9 /hpf (NEGATIVE); URINE BILIRUBIN NEGATIVE (NEGATIVE); URINE COLOR YELLOW; URINE GLUCOSE (UA) NEGATIVE (NEGATIVE); URINE KETONE NEGATIVE (NEGATIVE); URINE LEUK ESTERASE 1+ (NEGATIVE); URINE NITRITE NEGATIVE (NEGATIVE); URINE PROTEIN NEGATIVE (NEGATIVE); URINE RBC 2 /hpf (0-4); URINE WBC 46 /hpf (0-5)
[2019-10-21 23:27] LABS: ALBUMIN 2.8 g/dl (3.4-5.0); BILIRUBIN,TOTAL 0.3 mg/dL (0.2-1); BLOOD UREA NITROGEN 12.6 mg/dL (7-18); CREATININE 0.6 mg/dL (0.55-1.3); POTASSIUM 4.1 mmol/L (3.5-5.1); TOT PROT 7.5 g/dl (6.4-8.2)
[2019-10-21] MEDS ORDERED: VANCOMYCIN 1 GM in D5W (PRE-DOCKED) 1,000 MG/250 ML IVPB ONE (23:58)
[2019-10-21] MEDS ORDERED: PIPERACILLIN/TAZOB 3.375 GM 3.375 GM in DEXTROSE 5%-WATER - 50 ML IVPB ONE (23:59)
--- NOTE | 2019-10-22 00:39 | PN ---
Teaching Attending Note Name of Resident: Jennie Conrad ATTENDING PHYSICIAN STATEMENT I saw and evaluated the patient. I reviewed the resident's note and discussed the case with the resident. I agree with the resident's findings and plan as documented. SUBJECTIVE: Patient is a 59 year old woman with a PMH of Multiple Sclerosis, Indwelling guzman, Lumbar spine stenosis and Multiple back and spine surgeries, Complex global myofascial pain syndrome, Recurrent spinal stenosis, Mechanical thoracolumbar instability s/p spinal surgery, course complicated by hypoxic respiratory failure/PNA/ARDS, now s/p bilateral achilles tenotomies, who presents to the ER from [facility] for [facility] Therapy (since last surgery) with a reported fever of 102. Patient recently completed a 10 day antibiotic course for cellulitis on her surgical sight (augmentum), as per Rehab. The patient denies chest pain, shortness of breath, headache, dizziness, nausea, vomiting, diarrhea, constipation, dysuria, frequency, urgency and hematuria. Denies tobacco, alcohol or illicit drug use. OBJECTIVE: Alert Vital Signs Period Temp Pulse Resp BP Sys/Gallagher Pulse Ox Last 24 Hr 98.4 F-98.6 F 94-114 16-19 101-107/64-71 97-100 HEENT: No Jaundice, eye redness or discharge, PERRLA, EOMI. Normocephalic, atraumatic. External ears are normal and hearing is grossly intact. No nasal discharge. Neck: Supple, nontender. No palpable adenopathy or thyromegaly. No JVD Chest: Good effort. Clear to auscultation and percussion. Heart: Regular. No S3, rub or murmur Abdomen: Not distended, soft, nontender and no HSM. No rebound or guarding. Normal bowel sounds. Ext: Peripheral pulses intact. No leg edema. Guzman in place. Skin: Warm and dry. No petechiae, rash or ecchymosis. No erythema and purulent drainage on site of spinal surgery. Neuro: Alert. Oriented x3. CN 2-12 grossly intact. Nonambulatory due to pain and weakness following spinal surgery. Sensation grossly intact in all four extremities and DTR are symmetric. Psych: Appropriate mood and affect. Good insight. Home Medications Medication Instructions Recorded Amitriptyline HCl [Elavil -] 100 mg PO HS tablet 10/04/19 Cyclobenzaprine HCl [Flexeril -] 10 mg PO BID tablet 10/04/19 Furosemide [Lasix -] 40 mg PO DAILY tablet 10/04/19 Gabapentin [Neurontin -] 600 mg PO TID capsule 10/04/19 LORazepam [Ativan] 2 mg PO Q8H PRN tablet MDD 6 10/04/19 oxyCODONE HCL [Roxicodone -] 30 mg PO Q8H PRN #20 tablet MDD 90 10/04/19 mg Acetaminophen 650 mg PO Q6H 10/21/19 Docusate Sodium [Colace] 100 mg PO DAILY 10/21/19 HYDROmorphone [Dilaudid -] 2 mg PO Q4H PRN 10/21/19 Magnesium Hydrox 2400MG/30Ml [Milk 30 ml PO ONCE PRN 10/21/19 of Magnesia -] Nystatin Ointment [Mycostatin 1 applic TP BID 10/21/19 Ointment -] Zolpidem Tartrate [Ambien] 10 mg PO HS 10/21/19 Abnormal Lab Results 10/21/19 10/21/19 10/21/19 20:40 20:40 20:40 WBC 17.6 H Absolute Neuts (auto) 14.8 H Neutrophils % 84.2 H D Monocytes % 3.5 L PT with INR 13.60 H INR 1.15 H Sodium 134 L Potassium 5.5 H Anion Gap 5 L AST 66 H Alkaline Phosphatase 148 H Albumin 2.8 L Urine pH Ur Leukocyte Esterase 10/21/19 10/21/19 21:38 22:35 WBC Absolute Neuts (auto) Neutrophils % Monocytes % PT with INR INR Sodium Potassium Anion Gap 5 L AST Alkaline Phosphatase 144 H Albumin 2.8 L Urine pH >= 9.0 H D Ur Leukocyte Esterase 1+ H ASSESSMENT AND PLAN: 1. UTI/?RUL Pneumonia - CXR shows cardiomegaly with RUL infiltrate. Patient has an indwelling guzman - as a result of patient's choice. She is bed bound due to spinal disease/spine surgery associated debility. Will treat with IV vancomycin and zosyn, send urine culture, urine legionella antigen, continue home pain medications, consult Pain management/PT/ID and provide bowel regime. Change guzman catheter. Will continue comprehensive care for all of patients comorbid conditions. 2. Hypoalbuminemia - Possibly due to combined effects of malnutrition and inflammation associated with comorbid chronic conditions. Will ensure adequate dietary protein intake and also consult stem frazer. 3. DVT prophylaxis - Lovenox 40 mg SQ q 24 hours. 4. Advance directives - Full code
--- NOTE | 2019-10-22 01:25 | HP ---
CHIEF COMPLAINT: Fever/chills PCP: Dr. Vipul Waller HISTORY OF PRESENT ILLNESS: This is a 59 y/o F with a PMHx of multiple (~30) back and spine surgeries, complex global myofascial pain syndrome, recurrent spinal stenosis, multiple sclerosis, and mechanical thoracolumbar instability, recently admitted in August after undergoing a posterior thoracic decompression, cervicothoracic in situ fusion, and revision of thoracolumbar instrumented fusion on 09/09/[address] Willis. She presents c/o fever (101 degrees) and chills. Pt has since been at [facility] receiving physical therapy. Pt recently completed a 10 day course of Augmentin for cellulitis of her surgical site on her back. Pt has extensive pain medication regimen that has progressively been titrated down as much as she can tolerate. She denies any chest pain, SOB, chills, nausea, vomiting, headaches, abdominal pain, appetite changes, weakness, and has overall felt well. Denies pain or drainage from her surgical site over the past week. Has been doing well with PT. ER course was notable for: (1) Ofirmev 1g (2) CXR- RUL infiltrate, UA- 1+ Leuk est, wbc- 46 (3) WBC- 17.6 in serum, ekg pending Social History: Smoking: denies Alcohol: denies Drugs: denies Allergies latex Allergy (Verified 10/21/19 18:48) "couldn't breathe" morphine Allergy (Verified 10/21/19 18:48) "itching from inside out" titanium Allergy (Verified 10/21/19 18:48) Rash HOME MEDICATIONS: Home Medications Medication Instructions Recorded Amitriptyline HCl [Elavil -] 100 mg PO HS tablet 10/04/19 Cyclobenzaprine HCl [Flexeril -] 10 mg PO BID tablet 10/04/19 Furosemide [Lasix -] 40 mg PO DAILY tablet 10/04/19 Gabapentin [Neurontin -] 600 mg PO TID capsule 10/04/19 LORazepam [Ativan] 2 mg PO Q8H PRN tablet MDD 6 10/04/19 oxyCODONE HCL [Roxicodone -] 30 mg PO Q8H PRN #20 tablet MDD 90 10/04/19 mg Acetaminophen 650 mg PO Q6H 10/21/19 Docusate Sodium [Colace] 100 mg PO DAILY 10/21/19 HYDROmorphone [Dilaudid -] 2 mg PO Q4H PRN 10/21/19 Magnesium Hydrox 2400MG/30Ml [Milk 30 ml PO ONCE PRN 10/21/19 of Magnesia -] Nystatin Ointment [Mycostatin 1 applic TP BID 10/21/19 Ointment -] Zolpidem Tartrate [Ambien] 10 mg PO HS 10/21/19 REVIEW OF SYSTEMS Negative except in HPI PHYSICAL EXAMINATION Vital Signs - 24 hr 10/21/19 10/21/19 18:10 22:46 Temperature 98.4 F 98.6 F Pulse Rate 114 H Pulse Rate [ 94 H Left Radial] Respiratory 16 19 Rate Blood Pressure 101/71 Blood Pressure 107/64 [Right Arm] O2 Sat by Pulse 100 97 Oximetry (%) GENERAL: Awake, alert, and fully oriented, in moderate acute distress. LUNGS: Breath sounds reduced, clear to auscultation bilaterally. No wheezes, and no crackles. No accessory muscle use. HEART: Regular rate and rhythm, normal S1 and S2 without murmur, rub or gallop. ABDOMEN: Soft, nontender, not distended, hypoactive bowel sounds, no guarding, no rebound, no masses. No hepatomegaly or splenomegaly. MUSCULOSKELETAL:Back wound non-purulent, nonerythematous, no signs of bleeding from what I could see. Pt was in severe pain unable to fully turn patient to see entire wound. LOWER EXTREMITIES: Able to wiggle toes, boots b/l LE's in severe pain NEUROLOGICAL: unable to assess gait PSYCHIATRIC: Cooperative. Good eye contact. Appropriate mood and affect. SKIN: Warm, dry Laboratory Results - last 24 hr 10/21/19 10/21/19 10/21/19 20:39 20:40 20:40 WBC 17.6 H RBC 3.72 Hgb 10.7 Hct 32.8 D MCV 88.2 MCH 28.8 MCHC 32.7 RDW 14.3 Plt Count 426 MPV 8.7 D Absolute Neuts (auto) 14.8 H Neutrophils % 84.2 H D Lymphocytes % 10.2 D Monocytes % 3.5 L Eosinophils % 1.5 D Basophils % 0.6 Nucleated RBC % 0 PT with INR INR Sodium 134 L Potassium 5.5 H Chloride 98 Carbon Dioxide 32 Anion Gap 5 L BUN 13.1 Creatinine 0.7 Est GFR (CKD-EPI)AfAm 111.47 Est GFR (CKD-EPI)NonAf 96.18 Random Glucose 103 Lactic Acid 2.0 Calcium 9.0 Total Bilirubin 0.6 AST 66 H ALT 31 Alkaline Phosphatase 148 H Total Protein 8.1 Albumin 2.8 L Urine Color Urine Appearance Urine pH Ur Specific [place] Urine Protein Urine Glucose (UA) Urine Ketones Urine Blood Urine Nitrite Urine Bilirubin Urine Urobilinogen Ur Leukocyte Esterase Urine WBC (Auto) Urine RBC (Auto) Urine Casts (Auto) U Epithel Cells (Auto) Urine Bacteria (Auto) 10/21/19 10/21/19 10/21/19 20:40 21:38 22:35 WBC RBC Hgb Hct MCV MCH MCHC RDW Plt Count MPV Absolute Neuts (auto) Neutrophils % Lymphocytes % Monocytes % Eosinophils % Basophils % Nucleated RBC % PT with INR 13.60 H INR 1.15 H Sodium 136 Potassium 4.1 Chloride 99 Carbon Dioxide 32 Anion Gap 5 L BUN 12.6 Creatinine 0.6 Est GFR (CKD-EPI)AfAm 117.27 Est GFR (CKD-EPI)NonAf 101.18 Random Glucose 99 Lactic Acid Calcium 9.0 Total Bilirubin 0.3 AST 27 ALT 27 Alkaline Phosphatase 144 H Total Protein 7.5 Albumin 2.8 L Urine Color Yellow Urine Appearance Clear Urine pH >= 9.0 H D Ur Specific [place] 1.012 Urine Protein Negative Urine Glucose (UA) Negative Urine Ketones Negative Urine Blood Negative Urine Nitrite Negative Urine Bilirubin Negative Urine Urobilinogen 1.0 Ur Leukocyte Esterase 1+ H Urine WBC (Auto) 46 Urine RBC (Auto) 2 Urine Casts (Auto) 3 U Epithel Cells (Auto) 1.3 Urine Bacteria (Auto) 1.9 ASSESSMENT/PLAN: This is a 59 y/o F with a PMHx of multiple (~30) back and spine surgeries, complex global myofascial pain syndrome, recurrent spinal stenosis, multiple sclerosis, and mechanical thoracolumbar instability, recently admitted in August after undergoing a posterior thoracic decompression, cervicothoracic in situ fusion, and revision of thoracolumbar instrumented fusion on 09/09/[address] Willis. #Sepsis 2/2 Acute PNA/Complicated UTI - CXR showing RUL ?infiltrate or haziness - recently treated for Asp PNA - chronic guzman with UA 1+leuk est and wbc's - unable to determine if pt is symptomatic due to chronic guzman - pt making urine yellow in color - c/w vanc zosyn given pt presents from healthcare facility - ID consulted (Dr. Bennett) - UA legionella/strep ordered - clean wound on back s/p 10 days of augmentin #Multiple spinal surgeries - Dr. Willis made aware - continue home analgesic medications as prescribed - PT consulted - bowel regimen prn in case of opioid induced constipation - Pain mgmt consulted. DVT PPX: Lovenox 40mg SQ daily Visit type - Emergency Visit Emergency Visit: Yes ED Registration Date: 10/22/19 Care time: The patient presented to the Emergency Department on the above date and was hospitalized for further evaluation of their emergent condition. - New Patient This patient is new to me today: Yes Date on this admission: 10/22/19 - Critical Care Critical Care patient: No ATTENDING PHYSICIAN STATEMENT I saw and evaluated the patient. I reviewed the resident's note and discussed the case with the resident. I agree with the resident's findings and plan as documented. SUBJECTIVE: OBJECTIVE: ASSESSMENT AND PLAN:
[2019-10-22] MEDS ORDERED: PIPERACILLIN/TAZOB 3.375 GM 3.375 GM/50 ML BAG IVPB ONE (01:32)
[2019-10-22] MEDS ORDERED: ACETAMINOPHEN INJECTION 100 ML IVPB ONE ×2 (01:32→16:23)
[2019-10-22] MEDS ORDERED: ENOXAPARIN NA (PORCINE) 40 MG/0.4 ML DISP.SYRIN SQ ONE ×2 (01:35→14:27)
[2019-10-22] MEDS ORDERED: ACETAMINOPHEN 1000 MG/100 ML VIAL (NON FORMULARY) IVPB PRN (01:36)
[2019-10-22] MEDS ORDERED: HYDROmorphone HCL 2 MG TABLET PO PRN (02:24)
[2019-10-22] MEDS ORDERED: LORazepam 1 MG TABLET PO PRN (02:24)
[2019-10-22 06:29] LABS: BASO % 0.4 % (0-2.0); EOS % 1.7 % (0-4.5); HEMATOCRIT 34.1 % (32.4-45.2); HEMOGLOBIN 11.3 GM/dL (10.7-15.3); LYMPH % 10.8 % (8-40); MCH 28.9 pg (25.7-33.7); MEAN CELL VOLUME 87.4 fl (80-96); MEAN PLT VOLUME 7.9 fl (7.5-11.1); MONO % 3.9 % (3.8-10.2); NEUT % 83.2 % (42.8-82.8); PLATELET COUNT 386 K/MM3 (134-434); RDW 14.4 % (11.6-15.6); WHITE BLOOD COUNT 15.4 K/mm3 (4.0-10.0)
[2019-10-22] MEDS ORDERED: POLYETHYLENE GLYCOL 3350 119 GM BTL PO PRN (06:29)
[2019-10-22 06:44] LABS: ALBUMIN 2.9 g/dl (3.4-5.0); BILIRUBIN,TOTAL 0.6 mg/dL (0.2-1); CALCIUM 9.6 mg/dL (8.5-10.1); CREATININE 0.6 mg/dL (0.55-1.3); MAGNESIUM 2.1 mg/dL (1.8-2.4); PHOSPHOROUS 4.9 mg/dL (2.5-4.9); POTASSIUM 4.3 mmol/L (3.5-5.1); TOT PROT 7.8 g/dl (6.4-8.2)
[2019-10-22] MEDS ORDERED: HYDROmorphone HCL 2 MG TABLET ONE ×3 (07:10→14:27)
--- NOTE | 2019-10-22 10:34 | EKG ---
Test Reason : Blood Pressure : / mmHG Vent. Rate : 114 BPM Atrial Rate : 114 BPM P-R Int : 156 ms QRS Dur : 090 ms QT Int : 334 ms P-R-T Axes : 076 078 043 degrees QTc Int : 460 ms SINUS TACHYCARDIA POSSIBLE LEFT ATRIAL ENLARGEMENT BORDERLINE ECG WHEN COMPARED WITH ECG OF 07-MAR-2019 11:54, VENT. RATE HAS INCREASED BY 45 BPM Confirmed by Aubrey Corral MD ([id number]) on 10/22/2019 10:34:08 AM Referred By: Confirmed By:Aubrey Corral MD
[2019-10-22] MEDS ORDERED: CYCLOBENZAPRINE HCL 10 MG TABLET (FP) ONE (10:43)
[2019-10-22] MEDS ORDERED: LORazepam 0.5 MG TABLET ONE (10:43)
[2019-10-22] MEDS ORDERED: DOCUSATE SODIUM 100 MG CAPSULE (FP) PO ONE (10:44)
[2019-10-22] MEDS: CYCLOBENZAPRINE HCL 10 MG TABLET (FP) PO SCH ×2 (10:55→22:03)
[2019-10-22] MEDS: DOCUSATE SODIUM 100 MG CAPSULE (FP) PO SCH (10:55)
[2019-10-22] MEDS: HYDROmorphone HCL 2 MG TABLET PO PRN ×3 (10:56→18:51)
--- NOTE | 2019-10-22 13:59 | PN ---
Physical Exam: SUBJECTIVE: Patient seen and examined in the morning. Patient complains of back pain, but has no chest pain, shortness of breath, fever, chills, or abdominal pain. OBJECTIVE: Vital Signs Period Temp Pulse Resp BP Sys/Gallagher Pulse Ox Last 24 Hr 98.4 F-98.7 F 64-114 16-19 101-144/63-71 97-100 GENERAL: The patient is awake, alert, and fully oriented, in mild distress. HEAD: Normal with no signs of trauma. NECK: Trachea midline, full range of motion, supple. LUNGS: Breath sounds equal, clear to auscultation bilaterally, no wheezes. HEART: Regular rate and rhythm, S1, S2 without murmur, rub or gallop. ABDOMEN: Soft, nontender, nondistended, normoactive bowel sounds. BACK: Surgical site is closed with sutures and reuben present. Non erythematous , no drainage. Covered with dressing. EXTREMITIES: 2+ pulses, warm, well-perfused, no edema. NEUROLOGICAL: Cranial nerves II through XII grossly intact. Normal speech. Decreased sensation in lower extremities. PSYCH: Normal mood, normal affect. SKIN: Warm, dry, normal turgor, no rashes or lesions noted Laboratory Results - last 24 hr 10/21/19 10/21/19 10/21/19 20:39 20:40 20:40 WBC 17.6 H RBC 3.72 Hgb 10.7 Hct 32.8 D MCV 88.2 MCH 28.8 MCHC 32.7 RDW 14.3 Plt Count 426 MPV 8.7 D Absolute Neuts (auto) 14.8 H Neutrophils % 84.2 H D Lymphocytes % 10.2 D Monocytes % 3.5 L Eosinophils % 1.5 D Basophils % 0.6 Nucleated RBC % 0 PT with INR INR Sodium 134 L Potassium 5.5 H Chloride 98 Carbon Dioxide 32 Anion Gap 5 L BUN 13.1 Creatinine 0.7 Est GFR (CKD-EPI)AfAm 111.47 Est GFR (CKD-EPI)NonAf 96.18 Random Glucose 103 Lactic Acid 2.0 Calcium 9.0 Phosphorus Magnesium Total Bilirubin 0.6 AST 66 H ALT 31 Alkaline Phosphatase 148 H Total Protein 8.1 Albumin 2.8 L Urine Color Urine Appearance Urine pH Ur Specific [place] Urine Protein Urine Glucose (UA) Urine Ketones Urine Blood Urine Nitrite Urine Bilirubin Urine Urobilinogen Ur Leukocyte Esterase Urine WBC (Auto) Urine RBC (Auto) Urine Casts (Auto) U Epithel Cells (Auto) Urine Bacteria (Auto) 10/21/19 10/21/19 10/21/19 20:40 21:38 22:35 WBC RBC Hgb Hct MCV MCH MCHC RDW Plt Count MPV Absolute Neuts (auto) Neutrophils % Lymphocytes % Monocytes % Eosinophils % Basophils % Nucleated RBC % PT with INR 13.60 H INR 1.15 H Sodium 136 Potassium 4.1 Chloride 99 Carbon Dioxide 32 Anion Gap 5 L BUN 12.6 Creatinine 0.6 Est GFR (CKD-EPI)AfAm 117.27 Est GFR (CKD-EPI)NonAf 101.18 Random Glucose 99 Lactic Acid Calcium 9.0 Phosphorus Magnesium Total Bilirubin 0.3 AST 27 ALT 27 Alkaline Phosphatase 144 H Total Protein 7.5 Albumin 2.8 L Urine Color Yellow Urine Appearance Clear Urine pH >= 9.0 H D Ur Specific [place] 1.012 Urine Protein Negative Urine Glucose (UA) Negative Urine Ketones Negative Urine Blood Negative Urine Nitrite Negative Urine Bilirubin Negative Urine Urobilinogen 1.0 Ur Leukocyte Esterase 1+ H Urine WBC (Auto) 46 Urine RBC (Auto) 2 Urine Casts (Auto) 3 U Epithel Cells (Auto) 1.3 Urine Bacteria (Auto) 1.9 10/22/19 10/22/19 05:35 05:35 WBC 15.4 H RBC 3.90 Hgb 11.3 Hct 34.1 MCV 87.4 MCH 28.9 MCHC 33.0 RDW 14.4 Plt Count 386 MPV 7.9 Absolute Neuts (auto) 12.8 H Neutrophils % 83.2 H Lymphocytes % 10.8 Monocytes % 3.9 Eosinophils % 1.7 Basophils % 0.4 Nucleated RBC % 0 PT with INR INR Sodium 137 Potassium 4.3 Chloride 100 Carbon Dioxide 32 Anion Gap 5 L BUN 12.0 Creatinine 0.6 Est GFR (CKD-EPI)AfAm 117.27 Est GFR (CKD-EPI)NonAf 101.18 Random Glucose 91 Lactic Acid Calcium 9.6 Phosphorus 4.9 Magnesium 2.1 Total Bilirubin 0.6 AST 23 ALT 28 Alkaline Phosphatase 153 H Total Protein 7.8 Albumin 2.9 L Urine Color Urine Appearance Urine pH Ur Specific [place] Urine Protein Urine Glucose (UA) Urine Ketones Urine Blood Urine Nitrite Urine Bilirubin Urine Urobilinogen Ur Leukocyte Esterase Urine WBC (Auto) Urine RBC (Auto) Urine Casts (Auto) U Epithel Cells (Auto) Urine Bacteria (Auto) Active Medications Generic Name Dose Route Start Last Admin Trade Name Freq PRN Reason Stop Dose Admin Acetaminophen 1,000 mg 10/22/19 01:36 10/22/19 07:17 Ofirmev Injection - IVPB 1,000 mg Q6H PRN Administration PAIN 1-3 Amitriptyline HCl 100 mg 10/22/19 22:00 Elavil - PO HS ARNIE Cyclobenzaprine HCl 10 mg 10/22/19 10:00 10/22/19 10:55 Flexeril - PO 10 mg BID ARNIE Administration Docusate Sodium 100 mg 10/22/19 10:00 10/22/19 10:55 Colace - PO Not Given DAILY ARNIE Enoxaparin Sodium 40 mg 10/22/19 10:00 Lovenox - SQ DAILY ARNIE Furosemide 40 mg 10/22/19 10:00 Lasix - PO DAILY [facility] Gabapentin 600 mg 10/22/19 14:00 Neurontin - PO TID ARNIE Hydromorphone HCl 2 mg 10/22/19 09:46 10/22/19 10:56 Dilaudid - PO 2 mg Q3H PRN Administration PAIN LEVEL 6-10 Piperacillin Sod/Tazobactam 50 mls @ 100 mls/hr 10/22/19 10:00 Sod 3.375 gm/ Dextrose IVPB Q8H-IV ARNIE Protocol Lorazepam 2 mg 10/22/19 02:24 10/22/19 10:56 Ativan - PO 2 mg Q8H PRN Administration ANXIETY Oxycodone HCl 10 mg 10/22/19 12:18 Roxicodone - PO Q4H PRN PAIN LEVEL 6-10 Polyethylene Glycol 17 gm 10/22/19 06:29 Miralax (For Daily Use) - PO DAILY PRN CONSTIPATION ASSESSMENT/PLAN: 59F PMH of MS, indwelling guzman, lumbar spine stenosis, and multiple back and spine surgeries, complex global myofascial pain syndrome, recurrent spinal stenosis, mechanical thoracolumbar instability,who [facility] [address] 1)Fever secondary to UTI or Pneumonia -Chest X-Ray shows right upper lobe infiltrate. -Patient has indwelling guzman catheter with positive leukocyte esterase -WBC of 15.4 -F/U Legionella -F/U Blood culture -F/U Urine culture -Continue Vancomycin 1 gram Daily -Continue Zoysn 3.375 gram Q8H -ID consulted, appreciate recs 2) Multiple spinal surgeries with chronic pain -Dr. Willis consulted, appreciate recs -Tylenol 1000 mg IV Q6H PRN -Patient restarted on Oxycodone 10 mg Q4H PO PRN -Patient restarted on Dilaudid 2 mg Q3H PO PRN -Patient restarted on gabapentin 600 mg TID PO -Patient restarted on Flexeril 10 mg PO BID -Patient restarted on Ativan 2 mg PO Q8H PRN -Patient restarted on Elavil 100 mg PO HS DVT: Lovenox 40mg SQ daily F:Oral Hydration E: Monitor BMP N: Regular diet Dispo: Admitted to medical floor. Discharge pending CBC and Temperatures. Visit type - Emergency Visit Emergency Visit: Yes ED Registration Date: 10/22/19 Care time: The patient presented to the Emergency Department on the above date and was hospitalized for further evaluation of their emergent condition. - New Patient This patient is new to me today: Yes Date on this admission: 10/22/19 - Critical Care Critical Care patient: No ATTENDING PHYSICIAN STATEMENT I saw and evaluated the patient. I reviewed the resident's note and discussed the case with the resident. I agree with the resident's findings and plan as documented. SUBJECTIVE: OBJECTIVE: ASSESSMENT AND PLAN:
[2019-10-22] MEDS ORDERED: FUROSEMIDE 40 MG TABLET (FP) ONE (14:27)
[2019-10-22] MEDS: FUROSEMIDE 40 MG TABLET (FP) PO SCH (14:33)
[2019-10-22] MEDS: ENOXAPARIN NA (PORCINE) 40 MG/0.4 ML DISP.SYRIN SQ SCH (14:33)
[2019-10-22] MEDS: GABAPENTIN 300 MG CAPSULE (FP) PO SCH ×2 (14:34→22:03)
--- NOTE | 2019-10-22 15:01 | PN ---
Teaching Attending Note Name of Resident: Mika Taylor ATTENDING PHYSICIAN STATEMENT I saw and evaluated the patient. I reviewed the resident's note and discussed the case with the resident. I agree with the resident's findings and plan as documented. SUBJECTIVE: Complains of fever at nursing facility and tiredness. No cough/ sputum/hemoptysis. No nausea/vomiting/diarrhea. OBJECTIVE: Afebrile, Hemodynamically Stable. AAO x 3 Last Vital Signs Temp Pulse Resp BP Pulse Ox 98.7 F 88 15 103/52 L 97 10/22/19 10:59 10/22/19 12:48 10/22/19 12:48 10/22/19 12:48 10/22/19 12:48 HEENT- Atraumatic, Normocephalic. Heart - S1, S2, RRR Lungs - decreased air entry at bases. Abdomen - Soft, non-tender. Bowel Sounds normal. Extremities - mild edema, no calf tenderness. Neuro - AAO x 3. Paresis LEs R>L. Altered sensation bilate LEs (chronic). MS - Surgical incision Site on back clean, no erythema, mild tenderness, ? sutures in situ Laboratory Results - last 24 hr 10/21/19 10/21/19 10/21/19 20:39 20:40 20:40 WBC 17.6 H RBC 3.72 Hgb 10.7 Hct 32.8 D MCV 88.2 MCH 28.8 MCHC 32.7 RDW 14.3 Plt Count 426 MPV 8.7 D Absolute Neuts (auto) 14.8 H Neutrophils % 84.2 H D Lymphocytes % 10.2 D Monocytes % 3.5 L Eosinophils % 1.5 D Basophils % 0.6 Nucleated RBC % 0 PT with INR INR Sodium 134 L Potassium 5.5 H Chloride 98 Carbon Dioxide 32 Anion Gap 5 L BUN 13.1 Creatinine 0.7 Est GFR (CKD-EPI)AfAm 111.47 Est GFR (CKD-EPI)NonAf 96.18 Random Glucose 103 Lactic Acid 2.0 Calcium 9.0 Phosphorus Magnesium Total Bilirubin 0.6 AST 66 H ALT 31 Alkaline Phosphatase 148 H Total Protein 8.1 Albumin 2.8 L Urine Color Urine Appearance Urine pH Ur Specific [place] Urine Protein Urine Glucose (UA) Urine Ketones Urine Blood Urine Nitrite Urine Bilirubin Urine Urobilinogen Ur Leukocyte Esterase Urine WBC (Auto) Urine RBC (Auto) Urine Casts (Auto) U Epithel Cells (Auto) Urine Bacteria (Auto) 10/21/19 10/21/19 10/21/19 20:40 21:38 22:35 WBC RBC Hgb Hct MCV MCH MCHC RDW Plt Count MPV Absolute Neuts (auto) Neutrophils % Lymphocytes % Monocytes % Eosinophils % Basophils % Nucleated RBC % PT with INR 13.60 H INR 1.15 H Sodium 136 Potassium 4.1 Chloride 99 Carbon Dioxide 32 Anion Gap 5 L BUN 12.6 Creatinine 0.6 Est GFR (CKD-EPI)AfAm 117.27 Est GFR (CKD-EPI)NonAf 101.18 Random Glucose 99 Lactic Acid Calcium 9.0 Phosphorus Magnesium Total Bilirubin 0.3 AST 27 ALT 27 Alkaline Phosphatase 144 H Total Protein 7.5 Albumin 2.8 L Urine Color Yellow Urine Appearance Clear Urine pH >= 9.0 H D Ur Specific [place] 1.012 Urine Protein Negative Urine Glucose (UA) Negative Urine Ketones Negative Urine Blood Negative Urine Nitrite Negative Urine Bilirubin Negative Urine Urobilinogen 1.0 Ur Leukocyte Esterase 1+ H Urine WBC (Auto) 46 Urine RBC (Auto) 2 Urine Casts (Auto) 3 U Epithel Cells (Auto) 1.3 Urine Bacteria (Auto) 1.9 10/22/19 10/22/19 05:35 05:35 WBC 15.4 H RBC 3.90 Hgb 11.3 Hct 34.1 MCV 87.4 MCH 28.9 MCHC 33.0 RDW 14.4 Plt Count 386 MPV 7.9 Absolute Neuts (auto) 12.8 H Neutrophils % 83.2 H Lymphocytes % 10.8 Monocytes % 3.9 Eosinophils % 1.7 Basophils % 0.4 Nucleated RBC % 0 PT with INR INR Sodium 137 Potassium 4.3 Chloride 100 Carbon Dioxide 32 Anion Gap 5 L BUN 12.0 Creatinine 0.6 Est GFR (CKD-EPI)AfAm 117.27 Est GFR (CKD-EPI)NonAf 101.18 Random Glucose 91 Lactic Acid Calcium 9.6 Phosphorus 4.9 Magnesium 2.1 Total Bilirubin 0.6 AST 23 ALT 28 Alkaline Phosphatase 153 H Total Protein 7.8 Albumin 2.9 L Urine Color Urine Appearance Urine pH Ur Specific [place] Urine Protein Urine Glucose (UA) Urine Ketones Urine Blood Urine Nitrite Urine Bilirubin Urine Urobilinogen Ur Leukocyte Esterase Urine WBC (Auto) Urine RBC (Auto) Urine Casts (Auto) U Epithel Cells (Auto) Urine Bacteria (Auto) Current Medications Generic Name Dose Route Start Last Admin Trade Name Freq PRN Reason Stop Dose Admin Acetaminophen 1,000 mg 10/22/19 01:36 10/22/19 07:17 Ofirmev Injection - IVPB 1,000 mg Q6H PRN Administration PAIN 1-3 Amitriptyline HCl 100 mg 10/22/19 22:00 Elavil - PO HS ARNIE Cyclobenzaprine HCl 10 mg 10/22/19 10:00 10/22/19 10:55 Flexeril - PO 10 mg BID ARNIE Administration Docusate Sodium 100 mg 10/22/19 10:00 10/22/19 10:55 Colace - PO Not Given DAILY [facility] Enoxaparin Sodium 40 mg 10/22/19 10:00 10/22/19 14:33 Lovenox - SQ Not Given DAILY ARNIE Furosemide 40 mg 10/22/19 10:00 10/22/19 14:33 Lasix - PO 40 mg DAILY ARNIE Administration Gabapentin 600 mg 10/22/19 14:00 10/22/19 14:34 Neurontin - PO 600 mg TID ARNIE Administration Hydromorphone HCl 2 mg 10/22/19 09:46 10/22/19 14:33 Dilaudid - PO 2 mg Q3H PRN Administration PAIN LEVEL 6-10 Piperacillin Sod/Tazobactam 50 mls @ 100 mls/hr 10/22/19 10:00 Sod 3.375 gm/ Dextrose IVPB Q8H-IV ARNIE Protocol Lorazepam 2 mg 10/22/19 02:24 10/22/19 10:56 Ativan - PO 2 mg Q8H PRN Administration ANXIETY Oxycodone HCl 10 mg 10/22/19 12:18 Roxicodone - PO Q4H PRN PAIN LEVEL 6-10 Polyethylene Glycol 17 gm 10/22/19 06:29 Miralax (For Daily Use) - PO DAILY PRN CONSTIPATION Home Medications Medication Instructions Recorded Amitriptyline HCl [Elavil -] 100 mg PO HS tablet 10/04/19 Cyclobenzaprine HCl [Flexeril -] 10 mg PO BID tablet 10/04/19 Furosemide [Lasix -] 40 mg PO DAILY tablet 10/04/19 Gabapentin [Neurontin -] 600 mg PO TID capsule 10/04/19 LORazepam [Ativan] 2 mg PO Q8H PRN tablet MDD 6 10/04/19 Acetaminophen 650 mg PO Q6H 10/21/19 Docusate Sodium [Colace] 100 mg PO DAILY 10/21/19 HYDROmorphone [Dilaudid -] 2 mg PO Q4H PRN 10/21/19 Magnesium Hydrox 2400MG/30Ml [Milk 30 ml PO ONCE PRN 10/21/19 of Magnesia -] Nystatin Ointment [Mycostatin 1 applic TP BID 10/21/19 Ointment -] Zolpidem Tartrate [Ambien] 10 mg PO HS 10/21/19 oxyCODONE HCL [Roxicodone -] 10 mg PO Q4H PRN 10/22/19 ASSESSMENT AND PLAN: 59 year old female with history of MS, recurrent lumbar spinal stenosis, s/p multiple back surgeries, complex global myofascial pain syndrome, mechanical thoracolumbar instability, s/p recent T1, T2, T3 laminectomies/arthodesis T8-S1/ bone allo and autografting, transferred from [facility] with reported fever. 1. Pneumonia CXR - RUL infiltrate. Leukocytosis improving Normal SpO2 on RA, afebrile, hemodynamically stable. Treated with IV Zosyn/Vancomycin for HCAP ID consulted for further guidance re: need for further Ix and appropriate Abx therapy. Blood/Urine Cx pending. 2. 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 Surgical Site on back clean, mildly tender, recently completed augmentin course for surgical site cellulitis. Spinal Sx consult placed for wound eval and suture removal. Continue Dilaudid prn, Oxy prn, Flexeril, Elavil, Neurontin, Ativan DVT Px - Lovenox SQ
[2019-10-22] MEDS ORDERED: oxyCODONE HCL 5 MG TABLET ONE (16:23)
[2019-10-22] MEDS: oxyCODONE HCL 5 MG TABLET PO PRN (16:31)
--- NOTE | 2019-10-22 18:44 | PN ---
Progress Note (short form) - Note Progress Note: ID CONSULT DICTATED R/O [facility] ACQUIRED RUL PNEUMONIA S/P SPINAL SURGERY 12/15 COMPLICATED BY PNEUMONIA/RESP FAILURE/ PROLONGED ICU STAY ? RECENT WOUND CELLULITIS AWAIT C/S FLU SWAB EMPIRIC VANCOMYCIN/ ZOSYN
[2019-10-22] MEDS: VANCOMYCIN 1 GRAM (PRE-DOCKED) 1,000 MG/250 ML BAG IVPB SCH (18:51)
[2019-10-22] MEDS ORDERED: VANCOMYCIN 1,000 MG in DEXTROSE 5%-WATER - 250 ML IVPB SCH (19:00)
[2019-10-22 19:26] VITALS: BMI 24.5
--- NOTE | 2019-10-22 21:22 | CONS ---
DATE OF CONSULTATION: 10/22/2019 The patient is a 59-year-old female who is evaluated for fever and pneumonia. HISTORY OF PRESENT ILLNESS: She has had multiple spine surgeries in the past. She most recently was admitted to [facility] on September 09, 2019, for spinal surgery. She underwent a T1, T2, T3 laminectomy, C7-T4 fusion and bone allograft. She has also had multiple other spine surgeries in the past. She also has a past medical history of complex global myofascial pain syndrome, recurrent spinal stenosis, multiple sclerosis. Her hospital course at that time was complicated by development of fever. Chest x-ray showed pulmonary vascular congestion. She was treated with a course of IV antibiotics. She ultimately underwent Achilles tendon surgery. She now returns to the hospital for rehab, with a temperature 102. Chest x-ray shows new right upper lobe infiltrate. According to the notes, she had just completed a 10-day course of Augmentin for what was felt to be cellulitis of the laminectomy wound. At the present time, she is awake and alert. She has no focal complaint of pain. She denies any high-grade fever or shaking chills. PAST MEDICAL HISTORY: As per HPI. PAST SURGICAL HISTORY: Status post multiple spinal surgeries and revisions in the past. Allergies to LATEX, MORPHINE, and TITANIUM. Medications include Tylenol, Elavil, Lovenox, Lasix, Neurontin, Ativan, oxycodone, vancomycin, Zosyn. SOCIAL HISTORY: Lives in the community, recently in rehab after surgery. Positive alcohol use. SYSTEMS REVIEW: Neurologic: No loss of consciousness, seizure activity, or focal weakness. Cardiac: Negative chest pain or palpitations. Respiratory: As per HPI. Gastrointestinal: Negative vomiting or diarrhea. Genitourinary: Negative for urinary tract infection. LABORATORY DATA: White count on admission 17.6, presently 15.4, with 83 neutrophils, 10 lymphocytes, 3 monocytes, hematocrit 34.1, platelet count 386. Creatinine 0.6. Urinalysis: 46 white cells. Legionella antigen negative. PHYSICAL EXAMINATION: General: She is awake, is in no acute distress. Vital Signs: Temperature 98. Blood pressure 107/52. Pulse 90, regular. Respirations 18 per minute. Eyes: Sclerae anicteric. Heart Sounds: S1, S2. Lungs: Clear bilaterally. Abdomen: Soft, nontender. Extremities: 1+ edema. There is a surgical suture present on the left Achilles tendon area. There does not appear to be any cellulitis of the lower extremities. Back: Examination of the laminectomy wound: There is no erythema or drainage noted. IMPRESSION: 1. Rule out shelter acquired right upper lobe pneumonia. 2. Possible sepsis secondary to pneumonia. 3. Status post recent spinal surgery. 4. Status post treatment with Augmentin for cellulitis of the back. 5. History of multiple spinal surgeries. 6. Multiple sclerosis. Await cultures. Obtain sputum culture. Empiric antibiotic coverage with vancomycin and Zosyn. Influenza swab. Thank you for the kind referral. DANGELO DRAPER M.D. [id number]
[2019-10-22] MEDS ORDERED: PT OWN MED DRAWER 7, Y5N ONE (21:54)
[2019-10-22] MEDS ORDERED: AMITRIPTYLINE HCL 50 MG TABLET PO SCH (22:00)
[2019-10-22] MEDS ORDERED: ZOLPIDEM TARTRATE 5 MG TABLET PO PRN (22:00)
[2019-10-22] MEDS ORDERED: AMITRIPTYLINE HCL PO SCH (23:00)
[2019-10-23] MEDS ORDERED: PIPERACILLIN/TAZOBACTAM 3.375 GM VIAL IVPB ONE ×2 (01:56→08:39)
[2019-10-23] MEDS ORDERED: DEXTROSE 5%-WATER - 50 ML IVPB ONE ×2 (01:56→08:39)
[2019-10-23] MEDS: PIPERACILLIN/TAZOB 3.375 GM 3.375 GM in DEXTROSE 5%-WATER - 50 ML IVPB SCH ×3 (03:08→09:06)
[2019-10-23] MEDS: oxyCODONE HCL 5 MG TABLET PO PRN ×4 (04:36→19:00)
[2019-10-23] MEDS: GABAPENTIN 300 MG CAPSULE (FP) PO SCH ×2 (06:47→12:59)
[2019-10-23] MEDS: VANCOMYCIN 1 GRAM (PRE-DOCKED) 1,000 MG/250 ML BAG IVPB SCH (06:48)
[2019-10-23] MEDS ORDERED: PT OWN MED DRAWER 7, Y5N ONE ×2 (07:18→08:39)
[2019-10-23] MEDS: FUROSEMIDE 40 MG TABLET (FP) PO SCH (08:59)
[2019-10-23] MEDS: ENOXAPARIN NA (PORCINE) 40 MG/0.4 ML DISP.SYRIN SQ SCH (08:59)
[2019-10-23] MEDS: DOCUSATE SODIUM 100 MG CAPSULE (FP) PO SCH (08:59)
[2019-10-23] MEDS: CYCLOBENZAPRINE HCL 10 MG TABLET (FP) PO SCH (09:04)
[2019-10-23 12:22] LABS: BASO % 0.5 % (0-2.0); EOS % 4.7 % (0-4.5); HEMATOCRIT 31.2 % (32.4-45.2); HEMOGLOBIN 10.2 GM/dL (10.7-15.3); LYMPH % 16.4 % (8-40); MCH 28.4 pg (25.7-33.7); MCHC 32.7 g/dl (32.0-36.0); MEAN CELL VOLUME 86.8 fl (80-96); MEAN PLT VOLUME 8.2 fl (7.5-11.1); MONO % 2.9 % (3.8-10.2); NEUT % 75.5 % (42.8-82.8); PLATELET COUNT 386 K/MM3 (134-434); RBC 3.59 M/mm3 (3.60-5.2); RDW 14.2 % (11.6-15.6); WHITE BLOOD COUNT 8.4 K/mm3 (4.0-10.0)
--- NOTE | 2019-10-23 12:38 | PN ---
Teaching Attending Note Name of Resident: Mika Taylor ATTENDING PHYSICIAN STATEMENT I saw and evaluated the patient. I reviewed the resident's note and discussed the case with the resident. I agree with the resident's findings and plan as documented. SUBJECTIVE: Remains afebrile. Wants to return to [facility]. No cough/sputum/ hemoptysis. No nausea/vomiting/diarrhea. OBJECTIVE: Afebrile, Hemodynamically Stable. AAO x 3 Last Vital Signs Temp Pulse Resp BP Pulse Ox 98.5 F 80 18 109/56 L 95 10/23/19 06:00 10/23/19 06:00 10/23/19 06:00 10/23/19 06:00 10/22/19 21:00 Heart - S1, S2, RRR Lungs - decreased air entry at bases. Abdomen - Soft, non-tender. Bowel Sounds normal. Extremities - mild edema, no calf tenderness. Neuro - AAO x 3. Paresis LEs R>L. Altered sensation bilateral LEs (chronic). MS - Surgical incision Site on back clean, no erythema, mild tenderness, ? sutures in situ on LEs s/p achilles tendon release Sx. Laboratory Results - last 24 hr 10/23/19 11:15 WBC 8.4 RBC 3.59 L Hgb 10.2 L Hct 31.2 L MCV 86.8 MCH 28.4 MCHC 32.7 RDW 14.2 Plt Count 386 MPV 8.2 Absolute Neuts (auto) 6.4 Neutrophils % 75.5 Lymphocytes % 16.4 D Monocytes % 2.9 L Eosinophils % 4.7 H D Basophils % 0.5 Nucleated RBC % 0 Current Medications Generic Name Dose Route Start Last Admin Trade Name Linusq PRN Reason Stop Dose Admin Acetaminophen 1,000 mg 10/22/19 01:36 10/22/19 07:17 Ofirmev Injection - IVPB 1,000 mg Q6H PRN Administration PAIN 1-3 Amitriptyline HCl 75 mg/ 100 mg 10/22/19 23:00 10/23/19 01:00 Amitriptyline HCl 25 mg PO 100 mg HS ARNIE Administration Cyclobenzaprine HCl 10 mg 10/22/19 10:00 10/23/19 09:04 Flexeril - PO 10 mg BID ARNIE Administration Docusate Sodium 100 mg 10/22/19 10:00 10/23/19 08:59 Colace - PO 100 mg DAILY ARNIE Administration Enoxaparin Sodium 40 mg 10/22/19 10:00 10/23/19 08:59 Lovenox - SQ 40 mg DAILY ARNIE Administration Furosemide 40 mg 10/22/19 10:00 10/23/19 08:59 Lasix - PO 40 mg DAILY ARNIE Administration Gabapentin 600 mg 10/22/19 14:00 10/23/19 06:47 Neurontin - PO 600 mg TID ARNIE Administration Hydromorphone HCl 2 mg 10/22/19 09:46 10/22/19 18:51 Dilaudid - PO 2 mg Q3H PRN Administration PAIN LEVEL 6-10 Piperacillin Sod/Tazobactam 50 mls @ 100 mls/hr 10/23/19 02:00 10/23/19 09:04 Sod 3.375 gm/ Dextrose IVPB 100 mls/hr Q8H-IV ARNIE Administration Protocol Vancomycin HCl 1,000 mg in 250 mls @ 166.667 mls/hr 10/22/19 19:00 10/23/19 06:48 Vancomycin (Pre-Docked) IVPB 166.667 mls/hr Q12H ARNIE Administration Protocol Lorazepam 2 mg 10/22/19 02:24 10/22/19 10:56 Ativan - PO 2 mg Q8H PRN Administration ANXIETY Oxycodone HCl 10 mg 10/22/19 12:18 10/23/19 08:50 Roxicodone - PO 10 mg Q4H PRN Administration PAIN LEVEL 6-10 Polyethylene Glycol 17 gm 10/22/19 06:29 Miralax (For Daily Use) - PO DAILY PRN CONSTIPATION Zolpidem Tartrate 10 mg 10/22/19 22:00 10/22/19 22:03 Ambien - PO 10 mg HS PRN Administration INSOMNIA Home Medications Medication Instructions Recorded Amitriptyline HCl [Elavil -] 100 mg PO HS tablet 10/04/19 Cyclobenzaprine HCl [Flexeril -] 10 mg PO BID tablet 10/04/19 Furosemide [Lasix -] 40 mg PO DAILY tablet 10/04/19 Gabapentin [Neurontin -] 600 mg PO TID capsule 10/04/19 LORazepam [Ativan] 2 mg PO Q8H PRN tablet MDD 6 10/04/19 Acetaminophen 650 mg PO Q6H 10/21/19 Docusate Sodium [Colace] 100 mg PO DAILY 10/21/19 HYDROmorphone [Dilaudid -] 2 mg PO Q4H PRN 10/21/19 Magnesium Hydrox 2400MG/30Ml [Milk 30 ml PO ONCE PRN 10/21/19 of Magnesia -] Nystatin Ointment [Mycostatin 1 applic TP BID 10/21/19 Ointment -] Zolpidem Tartrate [Ambien] 10 mg PO HS 10/21/19 oxyCODONE HCL [Roxicodone -] 10 mg PO Q4H PRN 10/22/19 ASSESSMENT AND PLAN: 59 year old female with history of MS, recurrent lumbar spinal stenosis, s/p multiple back surgeries, complex global myofascial pain syndrome, mechanical thoracolumbar instability, s/p recent T1, T2, T3 laminectomies/arthodesis T8-S1/ bone allo and autografting, transferred from [facility] with reported fever. 1. Pneumonia - HCAP CXR - RUL infiltrate. Leukocytosis improved Normal SpO2 on RA, afebrile, hemodynamically stable. Treated with IV Zosyn/Vancomycin for HCAP Blood/Urine Cx returned negative Medically Stable for discharge back to [facility] on 7 day course of Levofloxacin. 2. 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 Surgical Site on back clean, mildly tender, recently completed augmentin course for surgical site cellulitis. Spinal Sx consult placed for wound eval and suture removal. Continue Dilaudid prn, Oxy prn, Flexeril, Elavil, Neurontin, Ativan DVT Px - Lovenox SQ Medically stable for discharge back to [place] once surgical wounds examined and reuben/sutures removed by Neurosurgery.
[2019-10-23 12:54] LABS: BLOOD UREA NITROGEN 11.9 mg/dL (7-18); CALCIUM 8.7 mg/dL (8.5-10.1); CREATININE 0.5 mg/dL (0.55-1.3); POTASSIUM 3.8 mmol/L (3.5-5.1)
[2019-10-23 15:48] VITALS: PULSE 88; TEMP 98.8
--- NOTE | 2019-10-23 17:35 | PN ---
Progress Note (short form) - Note Progress Note: Status post T1,2,3 decompression with thoracolumbar instrumented fusion for progressive kyphoscoliosis deformity. Readmittd for pneumonia from rehab [place] and sutures removed. Wound dry and well healed D/C back to rehab Will follow Requires intense neuromuscular rehab for partial paraparesis.
[2019-10-23] MEDS ORDERED: levoFLOXacin 750 MG TABLET PO ONE (17:57)
--- NOTE | 2019-10-23 19:20 | DS ---
Physical Exam: SUBJECTIVE: Patient seen and examined in the morning. Patient complains of back pain, but has no chest pain, shortness of breath, fever, chills, or abdominal pain. OBJECTIVE: Vital Signs Period Temp Pulse Resp BP Sys/Gallagher Pulse Ox Last 24 Hr 97.1 F-98.8 F 80-109 18-18 98-114/54-62 95-98 PHYSICAL EXAM GENERAL: The patient is awake, alert, and fully oriented, in mild distress. HEAD: Normal with no signs of trauma. NECK: Trachea midline, full range of motion, supple. LUNGS: Breath sounds equal, clear to auscultation bilaterally, no wheezes. HEART: Regular rate and rhythm, S1, S2 without murmur, rub or gallop. ABDOMEN: Soft, nontender, nondistended, normoactive bowel sounds. BACK: Surgical site is closed with sutures and reuben present. Non erythematous , no drainage. Covered with dressing. EXTREMITIES: 2+ pulses, warm, well-perfused, no edema. NEUROLOGICAL: Cranial nerves II through XII grossly intact. Normal speech. Decreased sensation in lower extremities. PSYCH: Normal mood, normal affect. SKIN: Warm, dry, normal turgor, no rashes or lesions noted LABS Laboratory Results - last 24 hr 10/23/19 10/23/19 11:15 11:15 WBC 8.4 RBC 3.59 L Hgb 10.2 L Hct 31.2 L MCV 86.8 MCH 28.4 MCHC 32.7 RDW 14.2 Plt Count 386 MPV 8.2 Absolute Neuts (auto) 6.4 Neutrophils % 75.5 Lymphocytes % 16.4 D Monocytes % 2.9 L Eosinophils % 4.7 H D Basophils % 0.5 Nucleated RBC % 0 Sodium 137 Potassium 3.8 Chloride 101 Carbon Dioxide 30 Anion Gap 6 L BUN 11.9 Creatinine 0.5 L Est GFR (CKD-EPI)AfAm 124.52 Est GFR (CKD-EPI)NonAf 107.44 Random Glucose 111 H Calcium 8.7 HOSPITAL COURSE: Date of Admission:10/22/19 Date of Discharge: 10/23/19 59F PMH of MS, indwelling guzman, lumbar spine stenosis, and multiple back and spine surgeries, complex global myofascial pain syndrome, recurrent spinal stenosis, mechanical thoracolumbar instability,who was admitted for fever with Tmax of 102 at [facility]. Patient was given IV zoysn and vancomycin while in the hospital. No fevers while in hospital. WBC was downtrending. Patient was given levofloxacin 750 mg once PO before discharge. Will continue with 6 days of outpatient Levofloxacin. Minutes to complete discharge: 30 Discharge Summary Problems reviewed: Yes Reason For Visit: PNEUMONIA Current Active Problems Pneumonia (Acute) Condition: Improved - Instructions Diet, Activity, Other Instructions: You were admitted to the hospital because you had a fever in the [facility]. We checked your chest-xray and it showed you had a pneumonia. We checked your blood and urine for infections, and we checked your surgical site for infection as well. While you were here we treated you with antibiotics through an IV. You will continue your antibiotic treatment as an outpatient. Additionally, you were seen by Dr. Marina and your surgical site was evaluated as well as the stitches on your legs. For your pneumonia: Please take Levofloxacin 750 mg, by mouth, once daily, for 6 more days. Last dose on 10/29/19. Continue all your other medications as indicated. Please follow up with Dr. Waller within 1 week to continue your healthcare maintenance and your to update them on this admission. Please follow up with Dr. Marina for continued post operative management. Return to the emergency department if you have chest pain, abdominal pain, nausea, vomiting, diarrhea, fevers or worsening of your symptoms. Referrals: Vipul Waller MD [Primary Care Provider] - 1 Week Shayan Marina MD [Staff Physician] - 1 Week [facility] - Home Medications Comprehensive Discharge Medication List: Ambulatory Orders Amitriptyline HCl [Elavil -] 100 mg PO HS tablet 10/04/19 Cyclobenzaprine HCl [Flexeril -] 10 mg PO BID tablet 10/04/19 Furosemide [Lasix -] 40 mg PO DAILY tablet 10/04/19 Gabapentin [Neurontin -] 600 mg PO TID capsule 10/04/19 LORazepam [Ativan] 2 mg PO Q8H PRN tablet MDD 6 10/04/19 Acetaminophen 650 mg PO Q6H 10/21/19 Docusate Sodium [Colace] 100 mg PO DAILY 10/21/19 HYDROmorphone [Dilaudid -] 2 mg PO Q4H PRN 10/21/19 Magnesium Hydrox 2400MG/30Ml [Milk of Magnesia -] 30 ml PO ONCE PRN 10/21/19 Nystatin Ointment [Mycostatin Ointment -] 1 applic TP BID 10/21/19 Zolpidem Tartrate [Ambien] 10 mg PO HS 10/21/19 oxyCODONE HCL [Roxicodone -] 10 mg PO Q4H PRN 10/22/19 levoFLOXacin [Levaquin] 750 mg PO DAILY #6 tab 10/23/19 This patient is new to me today: No Emergency Visit: Yes ED Registration Date: 10/22/19 Care time: The patient presented to the Emergency Department on the above date and was hospitalized for further evaluation of their emergent condition. Critical Care patient: No - Discharge Referral Referred to [facility] Med P.C.: No ATTENDING PHYSICIAN STATEMENT I saw and evaluated the patient. I reviewed the resident's note and discussed the case with the resident. I agree with the resident's findings and plan as documented. SUBJECTIVE: OBJECTIVE: ASSESSMENT AND PLAN:
[2019-10-23 19:26] VITALS: BP 117/65
== END 2019-10-23 21:20 | DRG 194 ==
LOC: JER 18:06 → JERBED 10-22 00:52 → J5S 10-22 17:47
PROVIDERS: ADMIT Internal Medicine
DX: J18.9 Pneumonia, unspecified organism (principal); G82.20 Paraplegia, unspecified; D72.829 Elevated white blood cell count, unspecified; G35 Multiple sclerosis; E88.09 Other disorders of plasma-protein metabolism, not elsewhere classified
CPT/HCPCS: 36415; 71045-TC-FY; 80048; 80053; 81003; 83605; 83735; 84100; 85025; 85610; 87040; 87086; 87899; 93005; 93010; 99285-25; J0131